=== PATIENT | female | born 1940 | race Caucasian/White ===

== ENCOUNTER 2017-10-27 16:50 | Emergency (ER) | payer MEDICARE, OTHER ==
[~2017-10-27] VITALS: Ht 167.6 cm; Wt 59.0 kg
--- OUTSIDE RECORDS SUMMARY | ~2017-10-27 | XMS | Clinical Summary ---
Demographics + + + | Address | [address] | | | [place] [address] | + + + | Home Phone | | + + + | Preferred Language | Unknown | + + + | Marital Status | | + + + | Amish Affiliation | 1041 | + + + | Race | Unknown | + + + | Ethnic Group | Unknown | + + + Author + + + | Author | [facility] | | | and [place] | + + + | Organization | [facility] | | | and [place] | + + + | Address | Unknown | + + + | Phone | Unavailable | + + + Support + + + + + | Name | Relationship | Address | Phone | + + + + + | Yuri Martinez | ECON | [address] | | | | [address] | | | | | [address] | | + + + + + Care Team Providers + +------+ + | Care Software Performance Engineer Name | Role | Phone | + +------+ + | Mike Saucedo MD | PP | | + +------+ + Allergies No Known Allergies Current Medications + + + +---------+------+------+-------+ | Prescription | Sig. | Disp. | Refills | Star | End | Statu | | | | | | t | Date | s | | | | | | Date | | | + + + +---------+------+------+-------+ | Calcium | Take 1 tablet by | | | | | Activ | | Carb-Cholecalciferol | mouth Daily. | | | | | e | | (CALCIUM 1000 + D | | | | | | | | PO) | | | | | | | + + + +---------+------+------+-------+ | Misc. Devices | Dx: 494.0 INGEL: 99 | 1 each | 1 | 11/1 | | Activ | | (ACAPELLA) MISC | months Use as | | | 4/20 | | e | | | directed twice | | | 14 | | | | | daily. | | | | | | + + + +---------+------+------+-------+ | SPIRIVA HANDIHALER | INHALE CONTENT OF | 30 | 5 | 11/3 | | Activ | | 18 MCG inhalation | ONE CAPSULE BY MOUTH | capsule | | 0/20 | | e | | capsule | ONCE DAILY | | | 15 | | | + + + +---------+------+------+-------+ | domperidone 10 mg | Take 10 mg by mouth | | | | | Activ | | capsule | 4 times daily | | | | | e | | | (before meals and | | | | | | | | nightly). | | | | | | + + + +---------+------+------+-------+ | metroNIDAZOLE | Apply 0.75 % | | | | | Activ | | (METROCREAM) 0.75 % | topically Twice | | | | | e | | cream | daily as needed. | | | | | | + + + +---------+------+------+-------+ | omeprazole | Take 20 mg by mouth | | | | | Activ | | (PRILOSEC) 20 mg | every morning | | | | | e | | capsule | (before breakfast). | | | | | | + + + +---------+------+------+-------+ Active Problems + + + | Problem | Noted Date | + + + | Rheumatic aortic valve insufficiency | 10/03/2015 | + + + | Basal cell carcinoma of cheek | 02/06/2015 | + + + + + | Overview: Last Assessment & Plan: | | [facility]. | + + + + + | History of breast cancer | 06/14/2014 | + + + | Bronchiectasis (HCC) | 06/14/2014 | + + + | Pulmonary nodules | 06/14/2014 | + + + + + | Overview: 2.5 and 5.8 mm on the right on CT 04/2014 | | Stable 10/2014 with 2 new 2mm nodules | | Needs follow up 10/2015 | + + + + + | Chronic cough | 05/06/2014 | + + + | Obstructive chronic bronchitis (HCC) | 05/06/2014 | + + + | GERD (gastroesophageal reflux disease) | 05/06/2014 | + + + | Gastroparesis | 05/22/2012 | + + + | Rheumatic heart disease | | + + + + + | Overview: With murmur | + + + +---+ | Rosacea | | + +---+ | Chronic rhinitis | | + +---+ | Carotid artery disease (HCC) | | + +---+ + + | Overview: carotid US 2009 50-69% mid L ICA stenosis | + + + +---+ | Osteopenia | | + +---+ Immunizations + + + + | Name | Dates Previously Given | Next Due | + + + + | INFLUENZA PF 18 Y OR | 05/20/2015, 04/06/2014 | | | >,TRIVALENT | | | | RECOMBINANT | | | + + + + | PNEUMOCOCCAL | 03/11/2015 | | | CONJUGATE 13-VALENT | | | | (PCV13) | | | + + + + | PNEUMOCOCCAL | 07/22/2010, 07/22/1992 | | | POLYSACCHARIDE | | | | 23-VALENT (PPSV23) | | | + + + + | TETANUS TOXOID | 07/22/1995 | | | ABSORBED, | | | | (ADOL/ADULT) | | | + + + + | ZOSTER, 1 DOSE | 07/22/2010 | | | (ADULT) | | | + + + + Family History + + +------+ + | Medical History | Relation | Name | Comments | + + +------+ + | Dementia | Brother | | | + + +------+ + | Arthritis | Brother | | back issues | + + +------+ + | Coronary artery | Father | | | | disease | | | | + + +------+ + | Diabetes, NIDDM | Father | | | + + +------+ + | Heart attack | Father | | | + + +------+ + | Heart disease | Father | | | + + +------+ + | Heart failure | Mother | | | + + +------+ + | Stroke | Mother | | after sx for a hip fracture | + + +------+ + | Anxiety disorder | Sister | | | + + +------+ + | Bipolar disorder | Sister | | | + + +------+ + | Colon cancer | Sister | | | + + +------+ + | Ovarian cancer | Sister | | | + + +------+ + | Other (see comment) | Sister | | pulmonary fibrosis | + + +------+ + + +------+ + + | Relation | Name | Status | Comments | + +------+ + + | Brother | | Alive | | + +------+ + + | Brother | | Alive | | + +------+ + + | Child | | Alive | | + +------+ + + | Child | | Alive | | + +------+ + + | Child | | Alive | | + +------+ + + | Child | | Alive | | + +------+ + + | Father | | | ME | | | | (Age | | | | | 91) | | + +------+ + + | Maternal Grandfather | | | | + +------+ + + | Maternal Grandmother | | | | + +------+ + + | Mother | | | CHF | | | | (Age | | | | | 92) | | + +------+ + + | Paternal Grandfather | | | | + +------+ + + | Paternal Grandmother | | | | + +------+ + + | Sister | | | | + +------+ + + | Sister | | | COLON CANCER | | | | (Age | | | | | 70) | | + +------+ + + | Sister | | | | | | | (Age | | | | | 79) | | + +------+ + + Social History + + + +--------+ + | Tobacco Use | Types | Packs/Day | Years | Date | | | | | Used | | + + + +--------+ + | Former Smoker | Cigarettes | 0.7 | 40 | 05/06/1969 - | | | | | | 05/06/2009 | + + + +--------+ + + +---+---+---+ | Smokeless Tobacco: | | | | | Never Used | | | | + +---+---+---+ + + | Tobacco Cessation: Counseling Given: No | + + + + +---------+ + | Alcohol Use | Drinks/We | oz/Week | Comments | | | ek | | | + + +---------+ + | No | 0 | 0.0 | | | | Standard | | | | | drinks or | | | | | | | | | | equivalen | | | | | t | | | + + +---------+ + + + + | Sex Assigned at | Date Recorded | | | | + + + | Not on file | | + + + Last Filed Vital Signs + + + + | Vital Sign | Reading | Time Taken | + + + + | Blood Pressure | 150/68 | 03/22/2017 1033 PDT | + + + + | Pulse | 79 | 03/22/2017 1033 PDT | + + + + | Temperature | 36.8 C (98.3 F) | 05/06/2014 1100 PDT | + + + + | Respiratory Rate | 16 | 09/05/2016 1312 PST | + + + + | Oxygen Saturation | 98% | 01/03/2016 1008 PDT | + + + + | Inhaled Oxygen | - | - | | Concentration | | | + + + + | Weight | 61.7 kg (136 lb) | 03/22/20173 PDT | + + + + | Height | 165.1 cm (5' 5") | 03/22/20173 PDT | + + + + | Body Mass Index | 22.63 | 03/22/20171032 PDT | + + + + Plan of Treatment + + + + + | Health Maintenance | Due Date | Last Done | Comments | + + + + + | Vaccine: | | 07/22/1995 | | | Dtap/Tdap/Td (1 - | 6 | | | | Tdap) | | | | + + + + + | Vaccine: Influenza | | 05/20/2015, 04/06/2014 | | | (Season Ended) | 8 | | | + + + + + | Vaccine: Zoster | Completed | 07/22/2010 | | + + + + + | Vaccine: | Completed | 03/11/2015, 07/22/2010, | | | Pneumococcal 65+ | | 07/22/1992 | | | Low/Medium Risk | | | | + + + + + Results Not on filefrom Last 3 Months Insurance + +--------+ +--------+ +---------+ | Payer | Benefi | Subscriber | Type | Phone | Address | | | t Plan | ID | | | | | | / | | | | | | | Group | | | | | + +--------+ +--------+ +---------+ | MEDICARE | MEDICA | xxxxxxxxxx | Medica | +- | | | | RE | | re | [id number] | | | | PART A | | | | | | | AND B | | | | | + +--------+ +--------+ +---------+ | MEDICARE SUPPLEMENT | MEDICA | [id number] | Indemn | +- | | | OTHER | RE | | ity | [phone] | | | | SUPPLE | | | | | | | MENT | | | | | | | OTHER | | | | | + +--------+ +--------+ +---------+ + +--------+ +--------+ + + | Guarantor Name | Accoun | Relation to | Date | Phone | Billing Address | | | t Type | Patient | of | | | | | | | | | | + +--------+ +--------+ + + | OSCAR MARTINEZ | Person | Self [birth year] Home: | [address] | | [place] | al/Fam | | 1940 | [phone] [place] [address] | | | zayda | | | [phone] | | + +--------+ +--------+ + +
--- OUTSIDE RECORDS SUMMARY | ~2017-10-27 | XMS | Encounter Summary ---
Demographics + + + | Address | [address] | | | [place] [address] | + + + | Home Phone | | + + + | Preferred Language | Unknown | + + + | Marital Status | | + + + | Faith Affiliation | 1041 | + + + | Race | Unknown | + + + | Ethnic Group | Unknown | + + + Author + + + | Author | [employer] [facility] | + + + | Organization | [facility] | + + + | Address | [...] + + +---------+ + | Alexandra Galarza | ECON | Unknown | | + + +---------+ + Care Team Providers + +------+ + | Care Nursing Officer Name | Role | Phone | + +------+ + | Mike Saucedo MD | PCP | | + +------+ + Reason for Referral Diagnostic Lab (Routine) + +--------+ + + + + | Status | Reason | Specialty | Diagnoses / | Referred By | Referred To | | | | | Procedures | Contact | Contact | + +--------+ + + + + | Authorized | | Pulmonology | Diagnoses | Sukhjinder, | Kr | | | | | | Windy | Pulmonary | | | | | Bronchiectas | MD Elinor | Function Lab | | | | | is without | [address] | [address] | | | | | complication | [address] | [address] | | | | | (HCC) Mild | [place], | [place], [place] | | | | | airflow | [place] [address] | [address] Phone: | | | | | obstruction | Phone: | [phone] | | | | | on pulmonary | [phone] | Fax: | | | | | function | Fax: | [phone] | | | | | test | [phone] | | | | | | Procedures | | | | | | | Complete PFT | | | | | | | - Pre & | | | | | | | Post | | | | | | | Spirometry, | | | | | | | PLETH & DLCO | | | + +--------+ + + + + Reason for Visit + + + | Reason | Comments | + + + | Follow-up | Bronchiectasis without complication (HCC) | + + + Encounter Details +--------+---------+ + + + | Date | Type | Department | Care Team | Description | +--------+---------+ + + + | 09/26/ | Office | [facility] | Sukhjinder, | Bronchiectasis | | 2018 | Visit | Pulmonology [address] | Windy Aldrich, | without complication | | | | [address] | [address] | ([facility]) (Primary Dx); | | | | [place], [place] | [place] [address] | Mild airflow | | | | [address] | [phone] | obstruction on | | | | [phone] | | pulmonary function | | | | | | test; ILD | | | | | | (interstitial lung | | | | | | disease) ([facility]); | | | | | | Atypical | | | | | | mycobacterial | | | | | | infection of lung | | | | | | ([facility]); Pulmonary | | | | | | nodule; Personal | | | | | | history of tobacco | | | | | | use, presenting | | | | | | hazards to health | +--------+---------+ + + + Social History + +-------+ [...] + + + as of this encounter Last Filed Vital Signs + + + + | Vital Sign | Reading | Time Taken | + + + + | Blood Pressure | 133/60 | 09/26/2017 9:27 AM PST | + + + + | Pulse | 63 | 09/26/2017 9:27 AM PST | + + + + | Temperature | 36.6 C (97.8 F) | 09/26/2017 9:27 AM PST | + + + + | Respiratory Rate | - | - | + + + + | Oxygen Saturation | 98% | 09/26/2017 9:27 AM PST | + + + + | Inhaled Oxygen | - | - | | Concentration | | | + + + + | Weight | 63.6 kg (140 lb 3.2 | 09/26/2017 9:27 AM PST | | | oz) | | + + + + | Height | 165.1 cm (5' 5") | 09/26/2017 9:27 AM PST | + + + + | Body Mass Index | 23.33 | 09/26/2017 9:27 AM PST | + + + + in this encounter Progress Notes Windy Slaughter MD - 09/26/2017 9:30 AM PSTFormatting of this note may be dif ferent from the original. Subjective: Patient ID: Shireen Posey is a 77 y.o. female with known valvular heart disease due to childhood rheumatic fever, COPD, bronchiectasis, stable pulmonary nodule, gastroparesis and history of hiatal hernia, and underlying mild ILD, here to establish care. HPI Ms Posey is a 76 yr old woman with a history of gastroparesis and hiatal hernia, post N issin's fundoplication, with COPD, bronchiectasis and mild interstitial changes on imaging. She has evidence of mild obstruction, and mild reduction in her DLCO based on PFT done in . She has been maintained on Spiriva daily, and is not on any short acting inhalers. She i s also not on oxygen supplementation. Clinically, she reports that she is not really short of breath with her activities at home. She remains active and works around the house throughout the day. She does have a chronic c ough, productive of white sputum. She does not have hemoptysis. She sleeps at an incline at night because laying flat precipitates coughing, but she claims she sleeps through the night without her cough bothering her. She has known valvular heart disease and she used to be un marco the care of Dr Talbert. She will be seeing a new provider in [place] soon. She denies jonathan st pains, but does have chronic pedal edema which she attributes to her back issues. She den ies dysphagia and overt aspiration of gastric contents. She admits that this happened in the past, but she is currently asymptomatic. She is also on dromperidone and on a PPI for this. She has chronic post nasal gtt and sinus drainage. Interval History Ms Posey comes in today for a follow up visit. She has done relatively well without any exacerbation, or acute URI this winter. She has been mostly sedentary, but she intends to g o back to the gym and also garden now that it is getting warmer. She continues to have a cou gh that is minimally productive of white to yellow sputum. She denies hemoptysis. She has go od energy, and seems to not be short of breath with her activities at home. She has not had fevers or night sweats. She denies chest pains, orthopnea or PNDs. She does sleep on a recli ner/HOB elevated. She has pedal edema which has not been worsening. She continues to complai n of abdominal discomfort and reflux s/s -she was diagnosed with gastroparesis and is on Gonzalo mperidone. She had diarrhea after a certain meal, but she is recovering from this. She has remained on Incruse Ellipta, and albuterol nebulization BID. She has an acapella at home to use for mucus clearance/pulm hygiene. SOCIAL HISTORY She is a past smoker, stopped 10 years ago, smoked about 1/2 to a pack a day for the past 5 0 years. 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 She denies occupational exposures. She has no animals at home curre ntly. The following portions of the patient's history were reviewed and updated as appropriate: a llergies, current medications, past family history, past medical history, past social histor y, past surgical history and problem list. Review of Systems Constitutional: Negative for activity change, appetite change, chills, diaphoresis, fatigue , fever and unexpected weight change. HENT: Positive for congestion and postnasal drip. Negative for nosebleeds, rhinorrhea and s ore throat. Eyes: Negative for visual disturbance. Respiratory: Positive for cough. Negative for apnea, choking, chest tightness, shortness of breath, wheezing and stridor. Cardiovascular: Positive for leg swelling. Negative for chest pain and palpitations. Gastrointestinal: Negative for constipation, diarrhea and nausea. Genitourinary: Negative for dysuria and frequency. Musculoskeletal: Positive for arthralgias, back pain and joint swelling. Negative for myalg ias and neck pain. Skin: Negative for rash. Neurological: Negative for dizziness, weakness and light-headedness. Hematological: Negative for adenopathy. Psychiatric/Behavioral: Negative for sleep disturbance. Active Ambulatory Problems Diagnosis Date Noted VHD (valvular heart disease) 02/03/2015 Bilateral carotid artery stenosis 02/03/2015 PAD (peripheral artery disease) 02/03/2015 Carcinoma in situ of right breast 02/06/2015 Basal cell carcinoma of cheek 02/06/2015 Gastroparesis 02/06/2015 Bronchiectasis (HCC) 02/06/2015 Chronic obstructive pulmonary disease (HCC) 11/19/2016 ILD (interstitial lung disease) (HCC) 11/19/2016 Pulmonary nodule 11/19/2016 Chronic allergic rhinitis 11/19/2016 Personal history of tobacco use, presenting hazards to health 11/19/2016 Mild airflow obstruction on pulmonary function test 02/19/2017 Centrilobular emphysema (HCC) 02/19/2017 Atypical mycobacterial infection of lung (HCC) 05/31/2017 Resolved Ambulatory Problems Diagnosis Date Noted No Resolved Ambulatory Problems Past Medical History: Diagnosis Date Bilateral claudication of lower limb (HCC) Bronchiectasis (HCC) CAD (coronary artery disease) Chronic sinusitis COPD (chronic obstructive pulmonary disease) (HCC) Gastroparesis History of breast cancer Osteopenia Pityriasis rosea Pulmonary fibrosis (HCC) Pulmonary nodule Rheumatic heart disease Past Surgical History Procedure Laterality Date APPENDECTOMY BASAL CELL CARCINOMA EXCISION Right cheek BREAST LUMPECTOMY Right lumpectomy-right breast COLONOSCOPY HERNIA REPAIR KNEE ARTHROSCOPY Right TONSILLECTOMY TONSILLECTOMY AND ADENOIDECTOMY UNLISTED PROCEDURE ARTHROSCOPY Objective: Physical Exam BP 133/60 (BP Location: Left upper arm, Patient Position: Sitting) | Pulse 63 | Temp 97.8 F (36.6 C) (Oral) | Ht 1.651 m (5' 5") | Wt 63.6 kg (140 lb 3.2 oz) | SpO2 98% | BM I 23.33 kg/m Vital signs reviewed. Oxygen saturation noted at 98 % on ambient air GENERAL: pleasant, cooperative, oriented, not in distress HEENT: pink conjunctiva, anicteric sclerae, moist oral mucosae and without any lesions, nor mal appearing nasal mucosae; no JVD; MALAMPATTI 4; no thyromegaly; no cervicolymphadenopathi es CVS: PMI non displaced, NRRR, S1 and S2, grade 3/6 BRADY along the L parasternal border CHEST: Examination of the chest was unremarkable. There were no bony deformities, no asymme try, and no other abnormalities. LUNGS: Normal effort, Equal in expansion, resonant to percussion, amphoric breath sounds on both bases, no adventitious sounds today ABDOMEN: Flat abdomen, NABS, non-tender on palpation, no masses palpated EXTREMITIES: good distal pulses, no cyanosis, no clubbing, no nail abnormalities, +1 edema on ankles noted NEURO: awake and oriented, gait normal, no focal neurologic deficits LABORATORY AND IMAGING Pulmonary Function Test: 04/26/14 10/25/15 FEV1 1.81 (85%) 1.79 (85%) FVC 2.69 (94%) 2.61 (92%) FEV1/FVC 67 69 TLC 12.11 (236%) 7.74 (151%) RV/TLC 77 66 DLCO 16.6 (73%) 15.2 (67%) CT imaging done on 10/24/16 independently reviewed. Official results are: IMPRESSION - Stable 5.8 mm nodule and adjacent pleural parenchymal irregularities in the left apex. Stable groundglass area of nodularity in the left apex. No new lung nodules. Bronchiectasis and fibrosis in both lungs. Consider continued follow-up. Echo done on 02/14/16 reviewed independently. Official result below: Impression 1. See Dictation. Sinus. 2. Degenerative Valvular Heart Disease. Calcified nodule on left coronary cusp, moderate AI , no . Mitral valve grossly NML, mild MAC, mild MR. Tricuspid and Pulmonic valves romaine sly NML, mild TR, trace PI. 3. LV dimensions NML (LVEDd 47mm, LVESd 30mm), systolic function NML, Grade 1 diastolic abnormality, [place] visually estimates LVEF 65-70%. Moderate LAE. RA/RV NML. 4. No Pericardial effusion. 5. IVC NML, est systolic PAP 27-32mmHg. CT of the chest done on 11/27/16 reviewed independently. IMPRESSION - Unchanged appearance of multiple pulmonary nodules, the largest is at the left apex and measures 6 mm. No new pulmonary nodules. Centrilobular emphysematous changes. Bilateral bronchiectasis and inferior basilar scarring/fibrosis, most prominent at the right lung base. AFB February 2017 is no growth. Assessment and Plan: 1. Bronchiectasis without complication (HCC) Ms Posey is a 77 yr old woman who has bibasilar bronchiectasis, likely from her previou s episodes of aspiration as a consequence of hiatal hernia and gastric dysmotility. Surveill ance sputum culture, and AFB smear and culture showed evidence of pseudomonas aeruginosa (lucero holbrook a colonizer), and atypical mycobacteria (only once in our surveillance CS). Repeat AFB CS in February did not show evidence of DOMI. This is reassuring. She has done well with her respiratory regimen, and has been using albuterol nebulization B ID, and Incruse Ellipta daily. I have encouraged her to push through with her plans of exerc ising more this season. This is one of the best ways of getting mucus clearance or pulmonary hygiene done. I have requested for a complete PFT this year as part of surveillance of her disease. - Complete PFT - Pre & Post Spirometry, PLETH & DLCO; Future 2. Mild airflow obstruction on pulmonary function test She manifests with mild airflow obstruction most likely secondary to her underlying bronchi ectasis and centrilobular emphysema. She will continue with Incruse Ellipta once a day. PFT requested as noted above. - Complete PFT - Pre & Post Spirometry, PLETH & DLCO; Future 3. ILD (interstitial lung disease) (HCC) She has subtle interstitial changes on the bases of her lungs, which I think is from past a spiration episodes. She thought that she had IPF, which her sister had, but based on her his tory, this is less likely. We will continue to follow her PFT, and also imaging if needed. She is due for a CT of the chest this May for a pulmonary nodule, and we will note any nguyen es in her interstitium then. 4. Atypical mycobacterial infection of lung (HCC) No growth on her last sputum AFB CS in February 2017. This is reassuring. We will continue be ing vigilant about this. 5. Pulmonary nodule She has a 5 mm ALEXANDRA nodule noted on a CT of the chest last year in October 2015. These remain stable based on repeat CT scan done this spring. These nodules are most likely inflammatory in nature rather than malignant. Repeat CT requested for November 2017 as part of continued surve illance. 6. Personal history of tobacco use, presenting hazards to health She has stopped smoking about 10 years ago. Continue to be vigilant about signs of pulmonar y malignancy. Thank you for allowing us to participate in this patient's care. A return visit has been re quested/scheduled in 5 months for routine follow up. The patient was instructed to call our clinic for any questions, and for any concerns regarding worsening dyspnea, cough or change in sputum production. We will see the patient sooner than the recommended follow up date, if with any worsening of symptoms. Windy Slaughter MD Pulmonary and Critical Care Medicine [facility] [address] [place] [address] in this encounter Plan of Treatment +--------+ + + + + | Date | Type | Specialty | Care Team | Description | +--------+ + + + + | 11/07/ | Appointment | Pulmonology | Sukhjinder, | | | 2017 | | | Windy Aldrich, | | | | | | MD [address] | | | | | | [place] [address] | | | | | | [phone] | | | | | | | | +--------+ + + + + | 01/29/ | Office | Cardiology | Nannette Morrison, | | | 2017 | Visit | | [address] | | | | | | [address], | | | | | | [place] [address] | | | | | | [phone] | | | | | | | | +--------+ + + + + | 02/27/ | Office | Pulmonology | Sukhjinder, | | | 2017 | Visit | | Windy Aldrich, | | | | | | [address] | | | | | | [place], [place] [address] | | | | | | [phone] | | | | | | | | +--------+ + + + + + +--------+ + + | Name | Priori | Associated Diagnoses | Order Schedule | | | ty | | | + +--------+ + + | Complete PFT - Pre & Post | Routin | Bronchiectasis | Expected: | | Spirometry, PLETH & DLCO | e | without complication | 09/26/2017, Expires: | | | | ([facility]) Mild airflow | 09/26/2018 | | | | obstruction on | | | | | pulmonary function | | | | | test | | + +--------+ + + as of this encounter Visit Diagnoses + + | Diagnosis | + + | Bronchiectasis without complication (HCC) - Primary | + + | Bronchiectasis without acute exacerbation | + + | Mild airflow obstruction on pulmonary function test | + + | ILD (interstitial lung disease) (HCC) | + + | Postinflammatory pulmonary fibrosis | + + | Atypical mycobacterial infection of lung (HCC) | + + | Pulmonary diseases due to other mycobacteria | + + | Pulmonary nodule | + + | Solitary pulmonary nodule | + + | Personal history of tobacco use, presenting hazards to health | + +
--- OUTSIDE RECORDS SUMMARY | ~2017-10-27 | XMS | Clinical Summary ---
Demographics + + + | Address | [address] | | | [place] [address] | + + + | Home Phone | | + + + | Preferred Language | Unknown | + + + | Marital Status | | + + + | Christianity Affiliation | 1041 | + + + | Race | Unknown | + + + | Ethnic Group | Unknown | + + + Author + + + | Author | [facility] | | | and [place] | + + + | Organization | [facility] | | | and [place] | [...] [address] | | | | | [address] | | + + + + + Care Team Providers + +------+ + | Care Facilities Maintenance Manager Name | Role | Phone | + [...] +---------+------+------+-------+ | Misc. Devices | Dx: 494.0 NIGEL: [...] Plan: | | Basal Cell CA[facility]. | + + + + + [...] + + | Father | | | PA | | | | (Age | | [...] Self | [birth year] | Home: | [address] | | [place]EL | al/Fam | | 1940 | [phone] | [place] [address] | | | zayda | | | [address] | | + +--------+ +--------+ + +
--- OUTSIDE RECORDS SUMMARY | ~2017-10-27 | XMS | Clinical Summary ---
Demographics + + + | Address | [address] | | | [place] [address] | + + + | Home Phone | | + + + | Preferred Language | Unknown | + + + | Marital Status | | + + + | Yarsanism Affiliation | CAT | + + + | Race | White | + + + | Ethnic Group | Not or | + + + Author + + + | Author | [facility] | + + + | Organization | [facility] | + + + | Address | Unknown | + + + | Phone | Unavailable | + + + Support + + + + + | Name | Relationship | Address | Phone | + + + + + | Shireen Posey | ECON | [address] | | | | [place], [place] | | | | | [address] | | + + + + + Care Team Providers + +------+ + | Care Rebar Bender Name | Role | Phone | + +------+ + | Mike Saucedo MD | PP | | + +------+ + Source Comments BLAIRE is fully live on both [facility] Ambulatory and [facility] InPatient.[facility] [employer] [facility] Allergies No Known Allergies Current Medications + + +-------+---------+------+------+-------+ | Prescription | Sig. | Disp. | Refills | Star | End | Statu | | | | | | t | Date | s | | | | | | Date | | | + + +-------+---------+------+------+-------+ | ASPIRIN ORAL | Take by mouth once | | | | | Activ | | | daily. | | | | | e | + + +-------+---------+------+------+-------+ Active Problems + + + | Problem [...] Pressure | 161/75 | 11/21/2011 12:08 PM PDT | + + + + | Pulse | 59 | 11/21/2011 12:08 PM PDT | + + + + | Temperature | 36.6 C (97.8 F) | 11/21/2011 12:08 PM PDT | + + + + | Respiratory Rate | 16 | 11/21/2011 12:08 PM PDT | + + + + | Oxygen Saturation | 95% | 10/28/2011 11:00 AM PDT | + + + + | Inhaled Oxygen | - | - | | Concentration | | | + + + + | Weight | 63 kg (139 lb) | 11/21/2011 12:08 PM PDT | + + + + | Height | 165.1 cm (5' 5") | 11/21/2011 12:08 PM PDT | + + + + | Body Mass Index | 23.13 | 11/21/2011 12:08 PM PDT | + + + + Plan of Treatment + + + + + | Health Maintenance | Due Date | Last Done | Comments | + + + + + | INFLUENZA VACCINE | | | | | (FLU SHOT) | 8 | | | + + + + + Implants + +------+------+ +--------+--------+--------+ | Implanted | Type | Area | Manufacture | Device | Expira | Model | | | | | r | | tion | / | | | | | | Identi | Date | Serial | | | | | | fier | | / Lot | + +------+------+ +--------+--------+--------+ | Atlantic Carl Ptfe 2.5cm X | | | CR BARD | | 07/21/ | [id number] | | 15cm - [id number]: Qty: | | | PERIPHERAL | | 2016 | / | | 1 on 10/26/2011 | | | VASCULAR | | | /[id number] | | | | | | | | 143 | + +------+------+ +--------+--------+--------+ Results Not on filefrom Last 3 Months
--- OUTSIDE RECORDS SUMMARY | ~2017-10-27 | XMS | Encounter Summary ---
Demographics + + + | Address | [address] | | | [place] [address] | + + + | Home Phone | | + + + | Preferred Language | Unknown | + + + | Marital Status | | + + + | Quaker Affiliation | 1041 | + + + | Race | Unknown | + + + | Ethnic Group | Unknown | + + + Author + + + | Author | [employer] [facility] [employer] | + + + | Organization | [facility] | + + + | Address | [...] Team Providers + +------+ + | Care Data Entry Technician Name | Role | Phone | + [...] | | | | | complication | [address] | | | | | (HCC) Mild | [place], | [place], [place] | | | | | airflow | [place] [address] | [address] Phone: | | | | | obstruction | Phone: | [phone] | | | | | on pulmonary | [phone] | Fax: | | | | | function | Fax: | [phone] | | | | | test | [phone] | | | | | | Procedures [...] + + | 09/26/ | Office | [facility] | Sukhjinder, | Bronchiectasis | | 2018 | Visit | Pulmonology [address] | Windy Aldrich, | without complication | | | | [address] | [address] | ([facility]) (Primary Dx); | | | | [place], [place] | [place] [address] | Mild airflow | | | | [address] | [phone] | obstruction on | | | | [phone] | | pulmonary function | | | | | | test; ILD | | | | | | (interstitial lung | | | | | | disease) ([facility]); | | | | | | Atypical | | | | | | mycobacterial | | | | | | infection of lung | | | | | | ([facility]); Pulmonary | | | | | [...] will be seeing a new provider in [place] soon. She denies jonathan st pains, but [...] 5 0 years. 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 Moderate LAE. RA/RV [...] Slaughter MD Pulmonary and Critical Care Medicine [facility] [address] [place] [address] in this encounter Plan of Treatment +--------+ + + + + | Date | Type | Specialty | Care Team | Description | +--------+ + + + + | 11/07/ | Appointment | Pulmonology | Sukhjinder, | | | 2017 | | | Windy Aldrich, | | | | | | MD [address] | | | | | | [place] [address] | | | | | | [phone] | | | | | | | | +--------+ + + + + | 01/29/ | Office | Cardiology | Nannette Morrison, | | | 2017 | Visit | | [address] | | | | | | [address], | | | | | | [place] [address] | | | | | | [phone] | | | | | | | | +--------+ + + + + | 02/27/ | Office | Pulmonology | Sukhjinder, | | | 2017 | Visit | | Windy Aldrich, | | | | | | [address] | | | | | | [place], [place] [address] | | | | | | [phone] | | | | | | | [...] Expires: | | | | ([facility]) Mild airflow | 09/26/2018 | | [...]
--- OUTSIDE RECORDS SUMMARY | ~2017-10-27 | XMS | Clinical Summary ---
Demographics + + + | Address | [address] | | | [place] [address] | + + + | Home Phone | | + + + | Preferred Language | Unknown | + + + | Marital Status | | + + + | Scientology Affiliation | 1041 | + + + | Race | Unknown | + + + | Ethnic Group | Unknown | + + + Author + + + | Author | [employer] | + + + | Organization | [facility] [employer] | + + + | Address | [...] + +---------+ + | Alexandra Galarza | [place] | Unknown | | + + +---------+ + Care Team Providers + +------+ + | Care Child And Family Counselor Name | Role | Phone | + +------+ + | Mike Saucedo MD | PP | | + +------+ + Allergies No Active Allergies Current Medications + + + +---------+------+------+-------+ | Prescription | Sig. | Disp. | Refills | Star | End | Statu | | | | | | t | Date | s | | | | | | Date | | | + + + +---------+------+------+-------+ | Multiple | Take 1 tablet by | | | | | Activ | | Vitamins-Minerals | mouth daily. | | | | | e | | (MULTIVITAMIN WITH | | | | | | | | MINERALS) tablet | | | | | | | + + + +---------+------+------+-------+ | aspirin 81 MG EC | Take 81 mg by mouth | | | | | Activ | | tablet | daily with | | | | | e | | | breakfast. | | | | | | + + + +---------+------+------+-------+ | domperidone | Take 10 mg by mouth | | | | | Activ | | (MOTILIUM) 10 mg | 4 (four) times daily | | | | | e | | tablet | before meals and | | | | | | | | nightly. | | | | | | + + + +---------+------+------+-------+ | omeprazole | Take 20 mg by mouth | | | | | Activ | | (PRILOSEC) 20 MG | 2 (two) times daily. | | | | | e | | capsule | | | | | | | + + + +---------+------+------+-------+ | omeprazole | Take 20 mg by mouth. | | | | | Activ | | (PRILOSEC) 20 MG | | | | | | e | | capsule | | | | | | | + + + +---------+------+------+-------+ | Calcium | Take 1 tablet by | | | | | Activ | | Carb-Cholecalciferol | mouth. | | | | | e | | 1000-800 MG-UNIT | | | | | | | | TABS | | | | | | | + + + +---------+------+------+-------+ | albuterol | Take 3 mLs by | 336 mL | 5 | 08/0 | 08/0 | Activ | | (PROVENTIL) (2.5 | nebulization every 6 | | | 1/20 | 1/20 | e | | MG/3ML) 0.083% | (six) hours as | | | 17 | 18 | | | nebulizer | needed for Wheezing | | | | | | | solutionIndications: | (nebulize twice a | | | | | | | Bronchiectasis | day, and as needed). | | | | | | | without complication | | | | | | | | ([facility]), Mild airflow | | | | | | | | obstruction on | | | | | | | | pulmonary function | | | | | | | | test | | | | | | | + + + +---------+------+------+-------+ | levofloxacin | Take 1 tablet by | 14 | 0 | 05/22 | | Activ | | (LEVAQUIN) 500 MG | mouth daily. | tablet | | 0 | | e | | tabletIndications: | | | | 17 | | | | Bronchiectasis | | | | | | | | without complication | | | | | | | | ([facility]) | | | | | | | + + + +---------+------+------+-------+ | umeclidinium | Inhale 1 puff into | 1 | 5 | 02/1 | | Activ | | bromide (INCRUSE | the lungs daily. | Inhaler | | 01/08 | | e | | ELLIPTA) 62.5 | | | | 18 | | | | MCG/INH | | | | | | | | inhalerIndications: | | | | | | | | Bronchiectasis | | | | | | | | without complication | | | | | | | | ([facility]), Chronic | | | | | | | | obstructive | | | | | | | | pulmonary disease, | | | | | | | | unspecified COPD | | | | | | | | type (HCC) | | | | | | | + + + +---------+------+------+-------+ Active Problems + + + | Problem | Noted Date | + + + | Atypical mycobacterial infection of lung (HCC) | 05/31/2017 | + + + | Mild airflow obstruction on pulmonary function test | 02/19/2017 | + + + | Centrilobular emphysema (HCC) | 02/19/2017 | + + + | [...] & Plan: Bronchiectasis, followed by | | Transportation Services RepresentativeDr Maria. | + + + + + | VHD (valvular heart disease) | 02/03/2015 | + + + [...] she and Yuri sold their home in [place], | | she is busy doing yardwork and packing, most likely will be | | spending the winter in the [place] area. Tolerating | | medications. No changes in [...] | 17/0.8, glu: 117 | + + + + + | [...] + + | Last Assessment & Plan: ernie Bellamy symptomatic, | | bilaterally. TORSTEN, 02/28/2015: mild disease, lazara. | + + Encounters +--------+ + + + + | Date | Type | Specialty | Care Team | Description | +--------+ + + + + | 10/21/ | Telephone | | Candelaria Pickens RN | | | 2018 | | | | | +--------+ + + + + | 09/26/ | Office | | Sukhjinder, | Bronchiectasis | | 2018 | Visit | | Windy Aldrich, | without complication | | | | | MD | ([facility]) (Primary Dx); | | | | | | Mild airflow | | | | | | obstruction on | | | | | | pulmonary function | | | | | | test; ILD | | | | | | (interstitial lung | | | | | | disease) ([facility]); | | | | | | Atypical | | | | | | mycobacterial | | | | | | infection of lung | | | | | | ([facility]); Pulmonary | | | | | | nodule; Personal | | | | | | history of tobacco | | | | | | use, presenting | | | | | | hazards to health | +--------+ + + + + | 09/06/ | Refill | | Candelaria Pickens RN | Bronchiectasis | | 2018 | | | | without complication | | | | | | ([facility]); Chronic | | | | | | obstructive | | | | | | pulmonary disease, | | | | | | unspecified COPD | | | | | | type ([facility]) | +--------+ + + + + from Last 3 Months Family History + + +------+ + | [...] + + | Father | | | ND | | | | (Age | | | | | 90) | | + +------+ + + | Mother | | | CHF,heart disease,HTN,CVA | | | | (Age | | | | | 90) | | + +------+ + + Social [...] + | Respiratory Rate | 16 | 03/14/2016 10:09 AM PDT | + + + + [...] AM PST | + + + + Plan of Treatment +--------+ + + + + | Date | Type | Specialty | Care Team | Description | +--------+ + + + + | 11/07/ | Appointment | | Sukhjinder, | | | 2017 | | | Windy Aldrich, | | | | | | MD [address] | | | | | | [place] [address] | | | | | | [phone] | | | | | | | | +--------+ + + + + | 01/29/ | Office | | Nannette Morrison, | | | 2017 | Visit | | MD [address] | | | | | | [address], | | | | | | [place] [address] | | | | | | [phone] | | | | | | | | +--------+ + + + + | 02/27/ | Office | | Sukhjinder, | | | 2017 | Visit | | Windy Aldrich, | | | | | | MD [address] | | | | | | [place] [address] | | | | | | [phone] | | | | | | | | +--------+ + + + + + + + + + | Health Maintenance | Due Date | Last Done | Comments | + + + + + | Vaccine: | | | | | Dtap/Tdap/Td (1 - | 8 | | | | Tdap) | | | | + + + + + | DEXA SCAN SCREENING | | | | | | 4 | | | + + + + + | Vaccine: Influenza | | 05/20/2015, 04/06/2014, | | | (Season Ended) | 8 | 04/06/2014 | | + + + + + | Vaccine: Zoster | Completed | 07/22/2010 | | + + + + + | Vaccine: | Completed | 03/11/2015, 07/22/2010, | | | Pneumococcal 65+ | | 07/22/1992 | | | Low/Medium Risk | | | | + + + + + Results Not on filefrom Last 3 Months Insurance + +--------+ +------+-------+ + | Payer | Benefi | Subscriber | Type | Phone | Address | | | t Plan | ID | | | | | | / | | | | | | | Group | | | | | + +--------+ +------+-------+ + | MEDICARE | MEDICA | xxxxxxxxxx | | | [address] | | | RE | | | | [place] [address] | | | IP-OP | | | | | + +--------+ +------+-------+ + | COMMERCIAL OTHER | COMMER | xxxxxxxxxx | | | | | | CIAL [...] MARTINEZ I | Person | Self | [birth year] Home: | [address] | | | al/Fam | | 1940 | [phone] | [place] | | | [place] | | | [phone] | [phone] | + +--------+ +--------+ + +
--- OUTSIDE RECORDS SUMMARY | ~2017-10-27 | XMS | Encounter Summary ---
Demographics + + + | Address | [address] | | | [place] [address] | + + + | Home Phone | | + + + | Preferred Language | Unknown | + + + | Marital Status | | + + + | Presybeterian Affiliation | 1041 | + + + | Race | Unknown | + + + | Ethnic Group | Unknown | + + + Author + + + | Author | [employer] | + + + | Organization | [facility] [employer] | + + + | Address | [...] Team Providers + +------+ + | Care Door Maker Name | Role | Phone | + +------+ + | Mike Saucedo MD | PCP | | + +------+ + Encounter Details +--------+ + + + + | Date | Type | Department | Care Team | Description | +--------+ + + + + | 10/21/ | Telephone | [facility] | Candelaria Pickens RN | | | 2017 | | Pulmonology [address] | | | | | | [address] | | | | | | [place], [place] | | | | | | [address] | | | | | | [phone] | | | +--------+ + + + [...] as of this encounter Plan of Treatment +--------+ + + + + | Date | Type | Specialty | Care Team | Description | +--------+ + + + + | 11/07/ | Appointment | Pulmonology | [facility], | | | 2017 | | | Windy Aldrich, | | | | | | MD [address] | | | | | | [place] [address] | | | | | | [phone] | | | | | | | | +--------+ + + + + | 01/29/ | Office | Cardiology | Nannette Morrison, | | | 2017 | Visit | | MD [address] | | | | | | Dr [address], | | | | | | [place] [address] | | | | | | [phone] | | | | | | | | +--------+ + + + + | 02/27/ | Office | Pulmonology | [facility], | | | 2017 | Visit | | Windy Aldrich, | | | | | | MD [address] | | | | | | [place] [address] | | | | | | [phone] | | | | | | | | +--------+ + + + + as of this encounter Visit Diagnoses Not on filein this encounter"
--- OUTSIDE RECORDS SUMMARY | ~2017-10-27 | XMS | Encounter Summary ---
Demographics + + + | Address | [address] | | | [place] [address] | + + + | Home Phone | | + + + | Preferred Language | Unknown | + + + | Marital Status | | + + + | Zoroastrianism Affiliation | 1041 | + + + | Race | Unknown | + + + | Ethnic Group | Unknown | + + + Author + + + | Author | [employer] | + + + | Organization | [facility] [employer] | + + + | Address [...] Providers + +------+ + | Care Manufacturing Plant Manager Name | Role | Phone | [...] Description | +--------+--------+ + + + | 09/06/ | Refill | [facility] | Candelaria Pickens RN | Bronchiectasis | | 2017 | | Pulmonology [address] | | without complication | | | | [address] | | ([facility]); Chronic | | | | [place], [place] | | obstructive | | | | [address] | | pulmonary disease, | | | | [phone] | | unspecified COPD | | | | | | type ([facility]) | +--------+--------+ + + + Social History [...] | | | | | [place] [address] | | | | | | [phone] | | | | | | | | +--------+ + + + + | 01/29/ | Office | Cardiology | JuanfranciaNannette, | | | 2017 | Visit | | MD [address] | | | | | | Dr [address], | | | | | | [place] [address] | | | | | | [phone] | | | | | | | | +--------+ + + + + | 02/27/ | Office | Pulmonology | Sukhjinder, | | | 2017 | Visit | | Windy Aldrich, | | | | | | MD [address] | | | | | | [place] [address] | | | | | | [phone] | | | | | | | | +--------+ + + + + as of this encounter Visit Diagnoses + + | Diagnosis | + + | Bronchiectasis without complication (HCC) | + + | Bronchiectasis without acute exacerbation | + + | Chronic obstructive pulmonary disease, unspecified COPD type (HCC) | + +"
--- OUTSIDE RECORDS SUMMARY | ~2017-10-27 | XMS | Encounter Summary ---
Demographics + + + | Address | [address] | | | [place] [address] | + + + | Home Phone | | + + + | Preferred Language | Unknown | + + + | Marital Status | | + + + | Bahai Affiliation | 1041 | + + + | Race | Unknown | + + + | Ethnic Group | Unknown | + + + Author + + + | Author | [employer] | + + + | Organization | [facility] | + + + | Address | [...] Team Providers + +------+ + | Care Insurance Licensing Supervisor Name | Role | Phone | [...] + + | 09/06/ | Refill | [facility] | Candelaria Pickens RN | Bronchiectasis | | 2017 | | Pulmonology [address] | | without complication | | | | [address] | | ([facility]); Chronic | | | | [place], [place] | | obstructive | | | | [address] | | pulmonary disease, | | | | [phone] | | unspecified COPD | | | | | | type ([facility]) | +--------+--------+ + + + Social [...] | | | | | [place] [address] | | | | | | [phone] | | | | | | | | +--------+ + + + + | 01/29/ | Office | Cardiology | JuanfranciaNannette, | | | 2017 | Visit | | MD [address] | | | | | | Dr [address], | | | | | | [place] [address] | | | | | | [phone] | | | | | | | | +--------+ + + + + | 02/27/ | Office | Pulmonology | Sukhjinder, | | | 2017 | Visit | | Windy Aldrich, | | | | | | MD [address] | | | | | | [place] [address] | | | | | | [phone] | | | | | | | | +--------+ + + + + as of this encounter Visit Diagnoses + + | Diagnosis | + + | Bronchiectasis without complication (HCC) | + + | Bronchiectasis without acute exacerbation | + + | Chronic obstructive pulmonary disease, unspecified COPD type (HCC) | + +"
--- OUTSIDE RECORDS SUMMARY | ~2017-10-27 | XMS | Encounter Summary ---
Demographics + + + | Address | [address] | | | [place] [address] | + + + | Home Phone | | + + + | Preferred Language | Unknown | + + + | Marital Status | | + + + | Adventism Affiliation | 1041 | + + + | Race | Unknown | + + + | Ethnic Group | Unknown | + + + Author + + + | Author | [email or web address] | + + + | Organization | [facility] | + + + | Address | [...] Providers + +------+ + | Care Telecommunications Line Installer Name | Role | Phone | + +------+ + | Mike Saucedo MD | PCP | | + +------+ + Encounter Details +--------+ + + + + | Date | Type | Department | Care Team | Description | +--------+ + + + + | 10/21/ | Telephone | [facility] | Candelaria Pickens RN | | | 2017 | | Pulmonology [address] | | | | | | [address] | | | | | | [place], [place] | | | | | | [address] | | | | | | [phone] | | | +--------+ + + + [...] | 11/07/ | Appointment | Pulmonology | [facility], | | | 2017 | | | Windy Aldrich, | | | | | | MD [address] | | | | | | [place] [address] | | | | | | [phone] | | | | | | | | +--------+ + + + + | 01/29/ | Office | Cardiology | Nannette Morrison, | | | 2017 | Visit | | MD [address] | | | | | | Dr [address], | | | | | | [place] [address] | | | | | | [phone] | | | | | | | | +--------+ + + + + | 02/27/ | Office | Pulmonology | [facility], | | | 2017 | Visit | | Windy Aldrich, | | | | | | MD [address] | | | | | | [place] [address] | | | | | | [phone] | | | | | | | | +--------+ + + + + as of this encounter Visit Diagnoses Not on filein this encounter"
--- OUTSIDE RECORDS SUMMARY | ~2017-10-27 | XMS | Clinical Summary ---
Demographics + + + | Address | [address] | | | [place] [address] | + + + | Home Phone | | + + + | Preferred Language | Unknown | + + + | Marital Status | | + + + | Adventism Affiliation | CAT | + + + | Race | White | + + + | Ethnic Group | Not or | + + + Author + + + | Author | [facility] | + + + | Organization | [facility] | + + + | Address | Unknown | + + + | Phone | Unavailable | + + + Support + + + + + | Name | Relationship | Address | Phone | + + + + + | Shireen Posey | ECON | [address] | | | | [place], [place] | | | | | [address] | | + + + + + Care Team Providers + +------+ + | Care Pharmacometrician Name | Role | Phone | + +------+ + | Mike Saucedo MD | PP | | + +------+ + Source Comments BLAIRE is fully live on both [facility] and [facility] InPatient.[facility] Allergies No Known Allergies Current Medications [...] / Lot | + +------+------+ +--------+--------+--------+ | [place] Carl Ptfe 2.5cm X | | | CR BARD | | 07/21/ | [id number] | | 15cm - [id number]: Qty: | | | PERIPHERAL | | 2016 | / | | 1 on 10/26/2011 | | | VASCULAR | | | /[id number] | | | | | | | | 143 | + +------+------+ +--------+--------+--------+ Results Not on filefrom Last 3 Months
--- OUTSIDE RECORDS SUMMARY | ~2017-10-27 | XMS | Clinical Summary ---
Demographics + + + | Address | [address] | | | [place] [address] | + + + | Home Phone | | + + + | Preferred Language | Unknown | + + + | Marital Status | | + + + | Buddhism Affiliation | 1041 | + + + | Race | Unknown | + + + | Ethnic Group | Unknown | + + + Author + + + | Author | [employer] [facility] | + + + | Organization | [facility] | + + + | Address | [...] Team Providers + +------+ + | Care Dissolver Operator Name | Role | Phone | [...] | | | | | ([facility]), Mild airflow | | | | | [...] | | | | | ([facility]) | | | | | | | [...] | | | | | ([facility]), Chronic | | | | | | [...] & Plan: Bronchiectasis, followed by | | Primary Montessori TeacherDr Maria. | + + + + + [...] she and Yuri sold their home in [place], | | she is busy doing yardwork and packing, most likely will be | | spending the winter in the [place] area. Tolerating | | medications. No changes [...] | | | MD | ([facility]) (Primary Dx); | | | | | | Mild airflow | | | | | | obstruction on | | | | | | pulmonary function | | | | | | test; ILD | | | | | | (interstitial lung | | | | | | disease) ([facility]); | | | | | | Atypical | | | | | | mycobacterial | | | | | | infection of lung | | | | | | ([facility]); Pulmonary | | | | | | [...] | | | | | ([facility]); Chronic | | | | | | obstructive | | | | | | pulmonary disease, | | | | | | unspecified COPD | | | | | | type ([facility]) | +--------+ + + + + from [...] + + | Father | | | [place] | | | | (Age | | [...] Dr | | | | | | [place] [address] | | | | | | [phone] | | | | | | | | +--------+ + + + + | 01/29/ | Office | | Nannette Morrison, | | | 2017 | Visit | | MD [address] | | | | | | Dr [address], | | | | | | [place] [address] | | | | | | [phone] | | | | | | | | +--------+ + + + + | 02/27/ | Office | | Sukhjinder, | | | 2017 | Visit | | Windy Aldrich, | | | | | | MD [address] | | | | | | [place] [address] | | | | | | [phone] | | | | | | | [...] RE | | | | [place] [address] | | | IP-OP | | | [...] Self | [birth year] | Home: | [address] | | | al/Fam | | 1940 | [phone] | [place] | | | [place] | | | [phone] | [address] | + +--------+ +--------+ + +
[~2017-10-27 16:50] MED LIST: SPIRIVA18 MCG INH
[2017-10-27] MEDS ORDERED: ALBUTEROL2.5 MG/3 M INH (17:07)
[2017-10-27] MEDS ORDERED: INCRUSE ELLI62.5 MCG INH (17:07)
[2017-10-27] MEDS ORDERED: LEVOFLOXACIN500 MG PO (17:08)
[2017-10-27] MEDS ORDERED: ZITHROMAX250 MG PO (19:29)
--- NOTE | 2017-10-29 07:21 | EKG ---
[facility] [address] [place] [address] Signed Sinus tachycardia Possible Left atrial enlargement Borderline ECG No previous ECGs available Confirmed by CANDY BURR MD ([id number]) on 10/29/2017 7:20:56 AM Electronically Signed By: CANDY BURR MD 10/29/17 0721 PATIENT NAME: OSCAR MARTINEZ Electrocardiogram DATE OF : 38 PHYSICIAN: CANDY BURR MD REPORT #: [id number] REPORT IS CONFIDENTIAL AND NOT TO BE RELEASED WITHOUT AUTHORIZATION
== END 2017-10-27 20:52 | disposition home or self-care (01) ==
LOC: ED 16:50
DX: R42 Dizziness and giddiness (principal); R00.2 Palpitations; T36.8X5A Adverse effect of other systemic antibiotics, initial encounter; J18.9 Pneumonia, unspecified organism; J40 Bronchitis, not specified as acute or chronic; Z88.1 Allergy status to other antibiotic agents; Z79.899 Other long term (current) drug therapy
CPT/HCPCS: 71046; 80053; 85025; 93005; 93010; 96374; 99284; J0696

== ENCOUNTER 2018-03-25 09:45 | Day surgery (SDC) | payer MEDICARE, OTHER ==
[~2018-03-25] VITALS: Ht 165.1 cm; Wt 61.2 kg
[~2018-03-25 09:45] MED LIST changes: +ALBUTEROL2.5 MG/3 M INH; +ASPIR-LOW81 MG PO; +INCRUSE ELLI62.5 MCG INH; +LEVOFLOXACIN500 MG PO; +ZITHROMAX250 MG PO
--- NOTE | 2018-03-25 14:34 | NUR ---
ATTEMPTED TO SCAN PT'S BARCODE TO DOCUMENT. COMPUTER IN OR#3 NOT EXCEPTING OF SCAN. MANUALLY ENTERED PT ACCOUNT NUMBER TO DOCUMENT START OF ANTIBIOTIC.
--- NOTE | 2018-03-25 15:30 | NUR ---
03/25/18 1530 Imelda Newman 1525-PATIENT ARRIVED TO PACU ON 6L MASK O2 SAT 100% PATIENT NONAROUSABLE ORAL AIRWAY IN PLACE. SR WITH PAC MENTAL RETARDATION AIDE AWARE. 4 LAP SITES TO KALLIE COX STRIPS SCANT AMT OF SHADOWING.
--- NOTE | 2018-03-25 16:14 | NUR ---
PATIENT ARRIVED TO DAY SURGERY AT 1600, NO NAUSEA OR PAIN REPORTED AT THIS TIME. X4 ABDOMINAL SCOPE SITES INTACT WITH STERI-STRIPS AND MINIMAL SEROUS DRAINAGE. PATIENT IS HAVING ICE CHIPS, DENIES WANTING ANYTHING TO EAT AT THIS TIME.
[2018-03-25] MEDS ORDERED: MAPAP325 MG PO (17:10)
[2018-03-25] MEDS ORDERED: PERCOCET 7.5-31 EACH PO (17:10)
--- NOTE | 2018-03-25 17:45 | NUR ---
PATIENT ARRIVED TO MEDICAL-SURGICAL FLOOR FROM PACU. VITAL SIGNS STABLE, PATIENT DENIES PAIN AND IS EATING DINNER. DISCUSSED PAIN MANAGEMENT OPTIONS WITH PATIENT. CALL LIGHT WITHIN REACH.
--- NOTE | 2018-03-25 17:54 | NUR ---
PATIENT TO MED SURG ROOM 107 FOR EXTENDED STAY, PATIENT HAS NOT BEEN ABLE TO EAT YET. REPORT GIVEN TO MARY SUE. DR. DAVE IS AWARE THAT PATIENT IS ON MED SURG FOR A SHORT AMOUNT OF TIME. SPOUSE HAS PAIN MEDICATION PRESCRIPTION AND IS GETTING THIS FILLED.
--- NOTE | 2018-03-25 19:00 | NUR ---
RECEIVED REPORT FROM MARY SULLIVAN. PT LAYING IN BED, NO COMPLAINTS OF PAIN OR NAUSEA AT THIS TIME. RECEIVED TYLENOL WHILE IN ROOM. CALL LIGHT IN REACH. FILLING PRECRIPTION.
--- NOTE | 2018-03-25 19:02 | NUR ---
PATIENT PREPARING FOR DISCHARGE. DISCUSSED WITH PATIENT PAIN MANAGEMENT FOR DRIVE HOME FOLLOWING DISCHARGE. 650 MG PO TYLENOL ADMINISTERED. CALL LIGHT WITHIN REACH, PATIENT DENIES FURTHER NEEDS AT THIS TIME.
--- NOTE | 2018-03-25 19:45 | NUR ---
DC ASSESSMENT COMPLETED. COURSE LUNG SOUNDS THROUGHOUT. DRESSING REINFORCED IN RIGHT LOWER QUADRANT. PT DENIES PAIN AND NAUSEA AT THIS TIME. IV DC'ED WNL.
--- NOTE | 2018-03-27 09:27 | OR ---
[facility] [address], [place] [address] Signed DATE OF OPERATION: 03/25/2018 SURGEON: Lacey Dave MD PREOPERATIVE DIAGNOSIS: Chronic calculous cholecystitis. POSTOPERATIVE DIAGNOSIS: Chronic calculous cholecystitis. PROCEDURES PERFORMED: 1. Laparoscopic cholecystectomy with intraoperative cholangiogram. 2. Surgeon-directed fluoroscopy. ANESTHESIA: General endotracheal, Rich Montez CRNA and local 10 mL of 0.25% Marcaine with epinephrine. INDICATION: This 77-year-old white woman has had chronic upper abdominal pain. She has various other diagnoses including past history of gastroparesis. She has had laparoscopic anti-reflux surgery in the past elsewhere. She was found on gallbladder ultrasound to have small gallstones and chronic inflammatory change. She was admitted at this time to undergo cholecystectomy preferred by laparoscopic approach. The risks of bleeding, infection, bile duct injury, and need for open procedure were discussed in detail. She understands and wished to proceed. FINDINGS: The gallbladder was chronically inflamed. There were filmy adhesions to the undersurface of the gallbladder. Gallbladder once excised, she had multiple small yellow gallstones. Cholangiogram showed no sign of filling defect, though the common duct was rather dilated. There was no sign of neoplasm. DESCRIPTION OF PROCEDURE: The patient was brought to the operating room, given a general endotracheal anesthetic. Preoperative antibiotics had been given. Sequential compression device stockings were used and heparin subcutaneously administered. The abdomen was prepared with a chlorhexidine solution and draped sterilely. An infraumbilical incision was made and using an open Archie cannula technique, pneumoperitoneum was achieved to a level of 14 mmHg of carbon dioxide gas. Intraabdominal inspection showed no sign of ascites or Electronically Signed By: LACEY DAVE MD 03/27/18 0927 PATIENT NAME: OSCAR MARTINEZ OPERATIVE REPORT DATE OF : 38 REPORT #: [id number] PHYSICIAN: LACEY DAVE MD PCP: ALEXANDRE SAUCEDO MD REPORT IS CONFIDENTIAL AND NOT TO BE RELEASED WITHOUT AUTHORIZATION [facility] [address], [place] [address] Signed carcinomatosis. The gallbladder was chronically inflamed. Three additional trocars were placed in usual configuration in the subxiphoid, right midclavicular, and right anterior axillary line. The gallbladder was dissected free after elevating the gallbladder and freeing omental adhesions to its undersurface. The cystic artery and cystic duct were well defined. The cystic artery was doubly-clipped and divided. The clip was applied across gallbladder cystic duct junction. A transverse choledochotomy was made in the cystic duct and retrograde milking of the duct showed egress of clear bile and no stones. Using the Lyle type cholangiocatheter, intraoperative cholangiography was undertaken showing free flow of contrast in biliary tree with prompt emptying into the duodenum. There was no sign of filling defect. The cystic duct was triply clipped and divided. The gallbladder dissected free in a retrograde fashion using electrocautery. The gallbladder extracted through the infraumbilical port site and opened on the back table and found to have small stones, chronic inflammatory change in mucosa with chronic inflammation. Irrigation was undertaken in the subhepatic space. Excess irrigation was suctioned free. There was no sign of bile leak or other problem. The trocars were removed under direct visualization showing no sign of bleeding. The infraumbilical fascial incision was reapproximated with interrupted 0 Vicryl suture. All wounds were copiously irrigated with saline solution and skin closed with interrupted 3-0 Vicryl after application of 10 mL of 0.25% Marcaine with epinephrine. Steri-Strips were applied. The patient was ultimately extubated and transferred to recovery room in good condition having suffered no complications. Sponge, needle, and instrument counts reported as correct x3. MD INOCENTE Smith/ROBINAL /[id number] cc: Alexandre Saucedo MD Copies: ALEXANDRE SAUCEDO MD ~ Electronically Signed By: LACEY DAVE MD 03/27/18 0927 PATIENT NAME: OSCAR MARTINEZ OPERATIVE REPORT DATE OF : 38 REPORT #: [id number] PHYSICIAN: LACEY DAVE MD PCP: ALEXANDRE SAUCEDO MD REPORT IS CONFIDENTIAL AND NOT TO BE RELEASED WITHOUT AUTHORIZATION
== END 2018-03-25 19:55 | disposition home or self-care (01) ==
LOC: DS 09:45 → MS 17:40 → FBC 17:40 → DS 19:55
PROVIDERS: Surgery
PROC: BF13YZZ Fluoroscopy of Gallbladder and Bile Ducts using Other Contrast (ICD-10-PCS; 2018-03-25)
PROC: 0FT44ZZ Resection of Gallbladder, Percutaneous Endoscopic Approach (ICD-10-PCS; principal; 2018-03-25 11:45)
DX: K81.1 Chronic cholecystitis (principal); J44.9 Chronic obstructive pulmonary disease, unspecified; I25.10 Atherosclerotic heart disease of native coronary artery without angina pectoris; K21.0 Gastro-esophageal reflux disease with esophagitis; K31.84 Gastroparesis; Z88.1 Allergy status to other antibiotic agents; Z88.8 Allergy status to other drugs, medicaments and biological substances; Z79.82 Long term (current) use of aspirin; Z79.899 Other long term (current) drug therapy
CPT/HCPCS: 00790; 74300; 88304; J0690; J1100; J1644; J1885; J2250; J2405; J2704; J2765; J3010; J7120; Q9967

== ENCOUNTER 2018-11-20 17:20 | Emergency (ER) | payer MEDICARE, OTHER ==
[~2018-11-20] VITALS: Ht 165.1 cm; Wt 59.4 kg
--- OUTSIDE RECORDS SUMMARY | ~2018-11-20 | XMS | Encounter Summary ---
Demographics + + + | Address | [address] | | | [place] [address] | + + + | Home Phone | | + + + | Preferred Language | Unknown | + + + | Marital Status | | + + + | Oriental Orthodox Affiliation | 1041 | + + + | Race | Unknown | + + + | Ethnic Group | Unknown | + + + Author + + + | Author | [facility] | | | and [place] | + + + | Organization | [facility] | | | and [place] | + + + | Address | Unknown | + + + | Phone | Unavailable | + + + Support + + +---------+ + | Name | Relationship | Address | Phone | + + +---------+ + | Sade Beckwith | ECON | Unknown | | + + +---------+ + | Yuri Posey | ECON | Unknown | | | (Jer) | | | | + + +---------+ + Care Team Providers + +------+ + | Care Commodity Merchant Name | Role | Phone | + +------+ + | Mike Saucedo MD | PCP | | + +------+ + Reason for Referral Evaluate & Treat (Routine) + + + + + + + | Status | Reason | Specialty | Diagnoses / | Referred By | Referred To | | | | | Procedures | Contact | Contact | + + + + + + + | Authorized | Specialty | Physical | Diagnoses | [facility], | [facility] | | | Services | Therapy | Weakness of | [place] [facility] | | | Required | | right hip | [facility] | PHYSICAL | | | | | S/P | [address] | | | | | orthopedic | [facility] | [facility] | | | | | surgery, | [place] | [place] | | | | | follow-up | [address] | [address] | | | | | exam | Phone: | Phone: | | | | | | [phone] | [phone] | | | | | | Fax: | Fax: | | | | | | [phone] | [phone] | + + + + + + + Encounter Details +--------+ + + + + | Date | Type | Department | Care Team | Description | +--------+ + + + + | 10/02/ | Orders Only | [facility] | Matti Magallanes | Weakness of right | | 2018 | | ORTHOPEDIC SURGERY | [address] | hip (Primary Dx); | | | | [address] [facility] | [facility] | S/P orthopedic | | | | [place], [place] | [facility] [place] [address] | surgery, follow-up | | | | [address] | [phone] | exam | | | | [phone] | | | +--------+ + + + + Social History + + + [...] | | | + +---+---+---+ + + +---------+ + | Alcohol Use [...] on file | | + + + + + + + | Job Start Date | Occupation | Industry | + + + + | Not on file | Not on file | Not on file | + + + + + + + + | Travel History | Travel Start | Travel End | + + + + + + | No recent travel history available. | + + documented as of this encounter Functional Status + + + + | Functional Status | Response | Date of Assessment | + + + + | Are you deaf or do you have serious | No | 07/17/2018 | | difficulty hearing? | | | + + + + | Are you blind or do you have serious | No | 07/17/2018 | | difficulty seeing, even when wearing | | | | glasses? | | | + + + + | Do you have serious difficulty walking or | No | 07/17/2018 | | climbing stairs? (5 years old or older) | | | + + + + | Do you have difficulty dressing or bathing? | No | 07/17/2018 | | (5 years old or older) | | | + + + + | Because of a physical, mental, or emotional | No | 07/17/2018 | | condition, do you have difficulty doing | | | | errands alone such as visiting a doctor's | | | | office or shopping? [15 years old or | | | | older)] | | | + + + + + + + + | Cognitive Status | Response | Date of Assessment | + + + + | Because of a physical, mental, or emotional | No | 07/17/2018 | | condition, do you have serious difficulty | | | | concentrating, remembering, or making | | | | decisions? (5 years old or older) | | | + + + + documented as of this encounter Plan of Treatment + +--------+ + + | Name | Priori | Associated Diagnoses | Order Schedule | | | ty | | | + +--------+ + + | Physical Therapy - Ambulatory | Routin | Weakness of right | Ordered: 10/02/2018 | | Referral | e | hip S/P orthopedic | | | | | surgery, follow-up | | | | | exam | | + +--------+ + + documented as of this encounter Visit Diagnoses + + | Diagnosis | + + | Weakness of right hip - Primary | + + | S/P orthopedic surgery, follow-up exam Follow-up examination, following other surgery | + + documented in this encounter"
--- OUTSIDE RECORDS SUMMARY | ~2018-11-20 | XMS | Encounter Summary ---
Demographics + + + | Address | [address] | | | [place] [address] | + + + | Home Phone | | + + + | Preferred Language | Unknown | + + + | Marital Status | | + + + | Advent Affiliation | 1041 | + + + | Race | Unknown | + + + | Ethnic Group | Unknown | + + + Author + + + | Author | [facility] | + + + | Organization | [facility] | + + + | Address | [...] | | + + +---------+ + | Alexandra Galarza ECON | Unknown | | + + +---------+ + Care Team Providers + +------+ + | Care Margin Clerk Name | Role | Phone | + +------+ + | Mike Saucedo MD | PCP | | + +------+ + Encounter Details +--------+ + + + + | Date | Type | Department | Care Team | Description | +--------+ + + + + | 10/14/ | Telephone | [facility] [place] | Jackie Garcia MA | | | 2019 | | Cardiology [place] | | | | | | [address] [facility] [address] | | | | | | Street [facility] [address] | | | | | | [place] [address] | | | | | | [phone] | | | +--------+ + + + + Social History + +-------+ +--------+ + | Tobacco Use | Types | Packs/Day | Years | Date | | | | | Used | | + +-------+ +--------+ + | Former Smoker | | 0.5 | 50 | Quit: 11/29/2005 | + +-------+ +--------+ + + +---+---+---+ | Smokeless Tobacco: [...] on file | | + + + as of this encounter Plan of Treatment +--------+---------+ + + + | Date | Type | Specialty | Care Team | Description | +--------+---------+ + + + | 02/04/ | Office | Cardiology | Alsamara, [place], | | | 2018 | Visit | | MD Angela Avalos | | | | | | [address], | | | | | | [place] [address] | | | | | | [phone] | | | | | | | | +--------+---------+ + + + | 05/19/ | Office | Pulmonology | Sukhjinder, | | | 2018 | Visit | | Windy Aldrich, | | | | | | MD [address] | | | | | | [place] [address] | | | | | | [phone] | | | | | | | | +--------+---------+ + + + as of this encounter Visit Diagnoses Not on filein this encounter"
--- OUTSIDE RECORDS SUMMARY | ~2018-11-20 | XMS | Encounter Summary ---
Demographics + + + | Address | [address] | | | [place] [address] | + + + | Home Phone | | + + + | Preferred Language | Unknown | + + + | Marital Status | | + + + | Islam Affiliation | 1041 | + + + | Race | Unknown | + + + | Ethnic Group | Unknown | + + + Author + + + | Author | [facility] | + + + | Organization | [facility] | + + + | Address | [...] Team Providers + +------+ + | Care Loader Unloader Name | Role | Phone | + +------+ + | Mike Saucedo MD | PCP | | + +------+ + Reason for Visit + + + | Reason | Comments | + + + | Cardiac Event | urgent report | | Monitor | | + + + Encounter Details +--------+ + + + + | Date | Type | Department | Care Team | Description | +--------+ + + + + | 09/22/ | Documentati | [facility] [place] | Mery Devlin, | Cardiac Event | | 2019 | on Only | Cardiology [facility] | ERICA | Monitor (urgent | | | | [address] | | report) | | | | [place], [place] | | | | | | [address] | | | | | | [phone] | | | +--------+ + + + [...] + + + as of this encounter Progress Notes Nannette Morrison MD - 09/22/2018 8:49 AM PSTReceived patient report for new onset A-Fib, heart rate 106bpm, on 09/20/2018, short episode less than 30 seconds. Medications: ASA 81mg Will follow up with the patient. 30 day event monitor placed 09/18/2018. Will continue to monitor. in this encounter Plan of Treatment +--------+---------+ + + + | Date | Type | Specialty | Care Team | Description | +--------+---------+ + + + | 02/04/ | Office | Cardiology | Nannette Morrison, | | | 2018 | Visit | | MD Angela Avalos | | | | | | [address], | | | | | | [place] [address] | | | | | | [phone] | | | | | | | | +--------+---------+ + + + | 05/19/ | Office | Pulmonology | Sukhjinder, | | | 2018 | Visit | | Windy Aldrich, | | | | | | MD [address] | | | | | | [place] [address] | | | | | | [phone] | | | | | | | | +--------+---------+ + + + as of this encounter Visit Diagnoses Not on filein this encounter"
--- OUTSIDE RECORDS SUMMARY | ~2018-11-20 | XMS | Encounter Summary ---
Demographics + + + | Address | [address] | | | [place] [address] | + + + | Home Phone | | + + + | Preferred Language | Unknown | + + + | Marital Status | | + + + | Sabianism Affiliation | 1041 | + + + | Race | Unknown | + + + | Ethnic Group | Unknown | + + + Author + + + | Author | [facility] | | | and [place] | + + + | Organization | [facility] | | | [...] Team Providers + +------+ + | Care Sourcing Assistant Name | Role | Phone | + +------+ + | Mike Saucedo MD | PCP | | + +------+ + Encounter Details +--------+ + + + + | Date | Type | Department | Care Team | Description | +--------+ + + + + | 09/24/ | Orders Only | [facility] | Abdi Wallace | Right hip pain | | 2019 | | ORTHOPEDIC SURGERY | MD Casandra [address] | (Primary Dx); Status | | | | [address] [facility] | SHAKADaniela [place]iel[place] | post hip surgery | | | | [place] | [address] | | | | | [address] | | | | | | [phone] | | | +--------+ + + + [...] Not on filedocumented as of this encounter Results XR Hip Right 2-3 Views (10/02/2018 11:01 PDT) + + | Specimen | + [...] Procedure Note | + + | Jose, Mookie Results In - 10/02/2018 1118 PDT EXAM:XR HIP RIGHT 2-3 VIEWS | [...] | + + | Right hip pain - Primary Pain in joint, pelvic region and thigh | + + | Status post hip surgery | + + documented in this encounter"
--- OUTSIDE RECORDS SUMMARY | ~2018-11-20 | XMS | Encounter Summary ---
Demographics + + + | Address | [address] | | | [place] [address] | + + + | Home Phone | | + + + | Preferred Language | Unknown | + + + | Marital Status | | + + + | Samaritan Affiliation | 1041 | + + + | Race | Unknown | + + + | Ethnic Group | Unknown | + + + Author + + + | Author | [facility] | + + + | Organization | [facility] | + + + | Address | [...] Providers + +------+ + | Care Chief Operator Hydroformer Name | Role | Phone | + +------+ + | Mike Saucedo MD | PCP | | + +------+ + Encounter Details +--------+ + + + + | Date | Type | Department | Care Team | Description | +--------+ + + + + | 10/01/ | Telephone | [facility] [place] | Gavino, | | | 2019 | | Cardiology [facility] | ERICA Adrian | | | | | [address] | | | | | | [facility] [address] | | | | | | [place] [address] | | | | | | [phone] | | | +--------+ + + + [...] 2019 | Visit | | MD Angela Avalos | | | | | | Dr [address], | | | | | | [place] [address] | | | | | | [phone] | | | | | | | | +--------+---------+ + + + | 05/19/ | Office | Pulmonology | [facility], | | | 2018 | Visit | | Windy Aldrich, | | | | | | [address] | | | | | | [place] [address] | | | | | | [phone] | | | | | | | | +--------+---------+ + + + as of this encounter Visit Diagnoses Not on filein this encounter"
--- OUTSIDE RECORDS SUMMARY | ~2018-11-20 | XMS | Encounter Summary ---
Demographics + + + | Address | [address] | | | [place] [address] | + + + | Home Phone | | + + + | Preferred Language | Unknown | + + + | Marital Status | | + + + | Jainism Affiliation | 1041 | + + + | Race | Unknown | + + + | Ethnic Group | Unknown | + + + Author + + + | Author | [facility] | + + + | Organization | [facility] | + + + | Address | [...] Team Providers + +------+ + | Care Instrument Mechanic Weapons System Name | Role | Phone | + +------+ + | Mike Saucedo MD | PCP | | + +------+ + Reason for Visit + + + | Reason | Comments | + + + | Cardiac Event | 30 day | | Monitor | | + + + Encounter Details +--------+ + + + + | Date | Type | Department | Care Team | Description | +--------+ + + + + | 09/18/ | Documentati | [facility] [place] | Nannette Morrison, | Cardiac Event | | 2019 | on Only | Cardiology [facility] | [address] | Monitor (30 day) | | | | [address] | [address], | | | | | [place] [address] | [place] [address] | | | | | [place] [address] | [phone] | | | | | [phone] | | | | | | | Jackie Garcia MA | | +--------+ + + + + [...] + as of this encounter Progress Notes Jackie Garcia MA - 09/18/2018 3:30 PM day rn cardiac placed on patient. EOB/B illing information discussed. Instructions given and understood. Patient instructed to florecita Acosta for any billing or monitor questions. in this encounter Plan of Treatment +--------+---------+ + + + | Date | Type | Specialty | Care Team | Description | +--------+---------+ + + + | 02/04/ | Office | Cardiology | Nannette Morrison, | | | 2018 | Visit | | MD Angela Avalos | | | | | | Dr [address], | | | | | | [place] [address] | | | | | | [phone] | | | | | | | | +--------+---------+ + + + | 05/19/ | Office | Pulmonology | Sukhjinder, | | | 2018 | Visit | | Windy Aldrich, | | | | | | MD [address] | | | | | | [place] [address] | | | | | | [phone] | | | | | | | | +--------+---------+ + + + as of this encounter Visit Diagnoses + + | Diagnosis | + + | Paroxysmal atrial fibrillation (HCC) | + + | Atrial fibrillation | + + | Chronic obstructive pulmonary disease, unspecified COPD type (HCC) | + +"
--- OUTSIDE RECORDS SUMMARY | ~2018-11-20 | XMS | Clinical Summary ---
Demographics + + + | Address | [address] | | | [place] [address] | + + + | Home Phone | | + + + | Preferred Language | Unknown | + + + | Marital Status | | + + + | Temple Affiliation | 1041 | + + + | Race | Unknown | + + + | Ethnic Group | Unknown | + + + Author + + + | Author | [email or web address] | + + + | Organization | [facility] | + + + | Address | Unknown | + + + | Phone | Unavailable | + + + Support + + +---------+ + | Name | Relationship | Address | Phone | + + +---------+ + | Sade Beckwith | ECON | Unknown | | + + +---------+ + | Yuri Martinez | ECON | Unknown | | | ([place]) | | | | + + +---------+ + | Alexandra Galarza | ECON | Unknown | | + + +---------+ + Care Team Providers + +------+ + | Care Transcriber Name | Role | Phone | + +------+ + | Mike Saucedo MD | PP | | + +------+ + Allergies + + + + + + | Active Allergy | Reactions | Severity | Noted | Comments | | | | | Date | | + + + + + + | Alendronate | Other (See Comments) | Medium | 03/20/20 | | | | | | 18 | | + + + + + + | Ciprofloxacin | GI Distress, Other | Medium | 11/30/19 | | | | (See Comments) | | 17 | | + + + + + + | Flunisolide | Other (See Comments) | Medium | 01/30/20 | Cannot remember | | | | | 18 | | + + + + + + | Levofloxacin | Other (See Comments) | Medium | 01/30/20 | Increased heart | | | | | 18 | rate, weakness | + + + + + + | Lisinopril | Other (See Comments) | Medium | | | + + + + + + Current Medications + + + +---------+------+------+-------+ | Prescription | Sig. | Disp. | Refills | Star | End | Statu | | | | | | t | Date | s | | | | | | Date | | | + + + +---------+------+------+-------+ | albuterol | Take 3 mLs by | 336 mL | 5 | 10/1 | 10/1 | Activ | | (PROVENTIL) (2.5 | nebulization every 6 | | | 0/20 | 0/20 | e | | MG/3ML) 0.083% | (six) hours as | | | 18 | 19 | | | nebulizer | needed for Wheezing | | | | | | | solutionIndications: | (nebulize twice a | | | | | | | Bronchiectasis | day, and as needed). | | | | | | | without complication | | | | | | | | ([facility]), Mild airflow | | | | | | | | obstruction on | | | | | | | | pulmonary function | | | | | | | | test | | | | | | | + + + +---------+------+------+-------+ | metoprolol | Take 1 tablet by | 60 | 11 | 03/1 | 03/1 | Activ | | (LOPRESSOR) 50 MG | mouth 2 (two) times | tablet | | 20 | 220 | e | | tablet | daily. | | | 19 | 20 | | + + + +---------+------+------+-------+ | umeclidinium | Inhale 1 puff into | 1 | 5 | 03/ | | Activ | | bromide (INCRUSE | the lungs daily. | Inhaler | | 04/10 | | e | | ELLIPTA) 62.5 | | | | 19 | | | | MCG/INH | | | | | | | | inhalerIndications: | | | | | | | | Bronchiectasis | | | | | | | | without complication | | | | | | | | ([facility]), Chronic | | | | | | | | obstructive | | | | | | | | pulmonary disease, | | | | | | | | unspecified COPD | | | | | | | | type ([facility]) | | | | | | | + + + +---------+------+------+-------+ | warfarin | Take 1 tablet by | 30 | 11 | 03/2 | 03/2 | Activ | | (COUMADIN) 5 MG | mouth daily. | tablet | | 04/10 | 03/10 | e | | tablet | | | | | 20 | | + + + +---------+------+------+-------+ Active Problems + + + | Problem | Noted Date | + + + | Paroxysmal atrial fibrillation (HCC) | 08/27/2018 | + + + + + | Overview: Post op. | + + + + + | Closed fracture of hip (HCC) | 07/12/2018 | + + + | Gastro-esophageal reflux disease with esophagitis | 03/20/2018 | + + + | Moderate aortic regurgitation | 01/29/2018 | + + + | Rheumatic heart disease | 01/29/2018 | + + + | Atypical mycobacterial infection of lung ([facility]) | 05/31/2017 | + + + | Mild airflow obstruction on pulmonary function test | 02/19/2017 | + + + | Centrilobular emphysema ([facility]) | 02/19/2017 | + + + | Chronic obstructive pulmonary disease (HCC) | 11/19/2016 | + + + | ILD (interstitial lung disease) (HCC) | 11/19/2016 | + + + | Pulmonary nodule | 11/19/2016 | + + + | Chronic allergic rhinitis | 11/19/2016 | + + + | Personal history of tobacco use, presenting hazards to health | 11/19/2016 | + + + | Carcinoma in situ of right breast | 02/06/2015 | + + + + + | Last Assessment & Plan: Breast CA, in situ, right lumpectomy | | 1997, Rads, no chemo. | + + + + + | Basal cell carcinoma of cheek | 02/06/2015 | + + + + + | Last Assessment & Plan: Basal Cell CA, right cheek, 2013. | + + + + + | Gastroparesis | 02/06/2015 | + + + + + | Last Assessment & Plan: Hx Hiatal hernia, [facility] | | fundoplication, 2011. | + + + + + | Bronchiectasis (HCC) | 02/06/2015 | + + + + + | Last Assessment & Plan: Bronchiectasis, followed by | | Director Of Public HealthDr Maria. | + + + + + | Bilateral carotid artery stenosis | 02/03/2015 | + + + + + | Last Assessment & Plan: Carotid stenosis, bilaterally, a | | symptomic. Denies any new visual disturbances, dysarthria, | | dysphasia, lateralizing signs or symptoms. Last carotid US, | | 02/18/2015: mild disease lazara. | + + + + + | PAD (peripheral artery disease) | 02/03/2015 | + + + + + | Last Assessment & Plan: Claudication, ernie symptomatic, | | bilaterally. TORSTEN, 02/28/2015: mild disease, lazara. | + + Resolved Problems + + + + | Problem | Noted | Resolved | | | Date | Date | + + + + | Carotid artery disease (HCC) | 01/30/20 | | | | 18 | 8 | + + + + + + | Overview: Overview: | | carotid US 2010 50-69% mid L ICA stenosis | + + + + + + | VHD (valvular heart disease) | 02/04/20 | | | | 15 | 8 | + + + + + + | Last Assessment & Plan: Hx Rheumatic Valvular Heart Disease. | | 75yo WF, admits mild exertional shortness of breath and | | fatigue, no orthopnea or PND, no significant edema. Usually | | skipped beats, she's unaware of any chest pain per se. | | Relatively mild symptoms of claudication. Denies any new visual | | disturbances, dysarthria, dysphasia, lateralizing signs or | | symptoms. Although blood pressure mildly elevated today, she is | | checking her blood pressures at home, it seems to be in the | | normal range at home. Results of echocardiogram and labs | | reviewed. Apparently she and Yuri sold their home in [place], | | she is busy doing yardwork and packing, most likely will be | | spending the winter in the [facility]. Tolerating | | medications. No changes in therapy. Will follow clinically.Last | | Echo, 02/14/2016: LV dimensions NML, LVEF 65-70%, moderate LAE, | | calcified nodule on left coronary cusp, moderate AI, mild MR, | | mild TR, trace PI, PAP 27-32mmHg.24hr HM, 11/18/2011: sinus | | rhythm, 49-96bpm, frequent PAC's, PVC.ECG, 02/04/2016: sinus | | rhythm, LAE.Labs, 01/26/2016: Liver enzymes NML, K: 43.6 BUN/Cr: | | 17/0.8, glu: 117 | + + Encounters +--------+ + + + + | Date | Type | Specialty | Care Team | Description | +--------+ + + + + | 11/17/ | Office | | Sukhjinder | Bronchiectasis | | 2019 | Visit | | Windy Aldrich, | without complication | | | | | MD | ([facility]) (Primary Dx); | | | | | | Mild airflow | | | | | | obstruction on | | | | | | pulmonary function | | | | | | test; ILD | | | | | | (interstitial lung | | | | | | disease) ([facility]); | | | | | | Multiple pulmonary | | | | | | nodules; Atypical | | | | | | mycobacterial | | | | | | infection of lung | | | | | | ([facility]); Personal | | | | | | history of tobacco | | | | | | use, presenting | | | | | | hazards to health | +--------+ + + + + | 11/17/ | Initial | | Maksim Mckenzie | Paroxysmal atrial | | 2019 | consult | | MD Colten | fibrillation ([facility]) | | | | | | (Primary Dx); Aortic | | | | | | valve | | | | | | insufficiency, | | | | | | etiology of cardiac | | | | | | valve disease | | | | | | unspecified | +--------+ + + + + | 10/22/ | Office | | Nannette Morrison, | Bilateral carotid | | 2019 | Visit | | MD | artery stenosis | | | | | | (Primary Dx); PAD | | | | | | (peripheral artery | | | | | | disease); | | | | | | Bronchiectasis | | | | | | without complication | | | | | | ([facility]); ILD | | | | | | (interstitial lung | | | | | | disease) ([facility]); | | | | | | Paroxysmal atrial | | | | | | fibrillation ([facility]) | +--------+ + + + + | 10/17/ | Orders Only | | Nannette Morrison, | Paroxysmal atrial | | 2019 | | | MD | fibrillation ([facility]) | | | | | | (Primary Dx) | +--------+ + + + + | 10/14/ | Telephone | | Jackie Garcia MA | | | 2018 | | | | | +--------+ + + + + | 10/07/ | Refill | | Evelyn Kingston, | Bronchiectasis | | 2019 | | | [employer] | without complication | | | | | | ([facility]); Chronic | | | | | | obstructive | | | | | | pulmonary disease, | | | | | | unspecified COPD | | | | | | type ([facility]) | +--------+ + + + + | 10/01/ | Orders Only | | Nannette Morrison, | | | 2018 | | | MD | | +--------+ + + + + | 10/01/ | Telephone | | Gavino, | | | 2019 | | | ERICA Adrian | | +--------+ + + + + | 09/22/ | Documentati | | Mery Devlin, | Cardiac Event | | 2019 | on Only | | MA | Monitor (urgent | | | | | | report) | +--------+ + + + + | 09/18/ | Documentati | | Nannette Morrison, | Cardiac Event | | 2019 | on Only | | Jackie Alexander, | Monitor (30 day) | | | | | MA | | +--------+ + + + + | 09/18/ | Documentati | | Mery Devlin, | Cardiac Event | | 2019 | on Only | | MA | Monitor (end of | | | | | | study) | +--------+ + + + + | 08/27/ | Office | | Nannette Morrison, | PAD (peripheral | | 2019 | Visit | | | artery disease) | | | | | | (HCC) (Primary Dx); | | | | | | Moderate aortic | | | | | | regurgitation; | | | | | | Paroxysmal atrial | | | | | | fibrillation ([facility]); | | | | | | Chronic obstructive | | | | | | pulmonary disease, | | | | | | unspecified COPD | | | | | | type ([facility]); | | | | | | Centrilobular | | | | | | emphysema ([facility]) | +--------+ + + + + | 08/27/ | Documentati | | Alexandre Sapphire | Other ([facility] | | 2019 | on Only | | CHAPITO Garcia | records) | +--------+ + + + + from Last 3 Months Immunizations + + + + | Name | Dates Previously Given | Next Due | + + + + | H1N1 Monovalent 2009 | 10/25/2009 | | + + + + | INFLUENZA, PF | 2018, 04/16/2017 | | | TRIVALENT ADJUVANTED | | | | 65 YRS OR > | | | + + + + | INFLUENZA, PF | 04/13/2016, 2015, 04/07/2014 | | | TRIVALENT HIGH DOSE | | | | 65 YRS OR > | | | + + + + | Influenza, PF | 05/20/2015, 04/06/2014 | | | Recombinant, | | | | Trivalent (Flublok) | | | + + + + | Influenza, PF | 04/06/2014 | | | Trivalent | | | + + + + | Pneumococcal | 11/21/2016, 03/11/2015 | | | Conjugate 13-valent | | | + + + + | Pneumococcal | 07/22/2010, 07/22/1992 | | | Polysaccharide | | | | 23-valent | | | + + + + | Tdap | 11/21/2016, 07/22/1995 | | + + + + | Zoster (Live) | 12/27/2010, 07/22/2010 | | + + + + Family History + + +------+ + | Medical History | Relation | Name | Comments | + + +------+ + | Diabetes type II | Father | | | + + +------+ + | Heart disease | Father | | | + + +------+ + | Heart disease | Mother | | | + + +------+ + | High cholesterol | Mother | | | + + +------+ + | Hypertension | Mother | | | + + +------+ + | Stroke | Mother | | | + + +------+ + | Colon cancer | Sister | | | + + +------+ + + +------+ + + | Relation | Name | Status | Comments | + +------+ + + | Father | | | NH | | | | (Age | | | | | 90) | | + +------+ + + | Mother | | | CHF,heart disease,HTN,CVA | | | | (Age | | | | | 90) | | + +------+ + + | Sister | | | | + +------+ + + Social History + +-------+ +--------+ [...] + + + | Blood Pressure | 121/50 | 11/17/2018 11:22 AM PDT | + + + + | Pulse | 51 | 11/17/2018 11:22 AM PDT | + + + + | Temperature | 36.2 C (97.1 F) | 11/17/2018 11:22 AM PDT | + + + + | Respiratory Rate | 16 | 05/20/2018 10:29 AM PDT | + + + + | Oxygen Saturation | 99% | 11/17/2018 11:22 AM PDT | + + + + | Inhaled Oxygen | - | - | | Concentration | | | + + + + | Weight | 61.2 kg (135 lb) | 11/17/2018 11:22 AM PDT | + + + + | Height | 165.1 cm (5' 5") | 11/17/2018 11:22 AM PDT | + + + + | Body Mass Index | 22.47 | 11/17/2018 11:22 AM PDT | + + + + Plan of Treatment +--------+---------+ + + + | Date | Type | Specialty | Care Team | Description | +--------+---------+ + + + | 02/04/ | Office | | Nannette Morrison, | | | 2018 | Visit | | MD Angela Avalos | | | | | | Dr [address] | | | | | | [place] [address] | | | | | | [phone] | | | | | | | | +--------+---------+ + + + | 05/19/ | Office | | Sukhjinder, | | | 2018 | Visit | | Windy Aldrich | | | | | | MD Angela [address] | | | | | | [place] [address] | | | | | | [phone] | | | | | | | | +--------+---------+ + + + + + + + + | Health Maintenance | Due Date | Last Done | Comments | + + + + + | DEXA SCAN SCREENING | | | | | | 4 | | | + + + + + | Vaccine: Zoster (2 | | 12/27/2010, 07/22/2010 | | | of 3) | 1 | | | + + + + + | Vaccine: | | 11/21/2016, 07/22/1995 | | | Dtap/Tdap/Td (3 - | 7 | | | | Td) | | | | + + + + + | Vaccine: | Completed | 11/21/2016, 03/11/2015, | | | Pneumococcal 65+ | | 07/22/2010, Additional history | | | Low/Medium Risk | | exists | | + + + + + | Vaccine: Influenza | Completed | 2018, 04/16/2017, | | | | | 04/13/2016, Additional history | | | | | exists | | + + + + + Procedures + +--------+ + + + | Procedure Name | Priori | Date/Time | Associated Diagnosis | Comments | | | ty | | | | + +--------+ + + + | EKG STANDARD 12 LEAD | Routin | 11/17/2018 | Paroxysmal atrial | Results for this | | | e | 10:35 AM | fibrillation (HCC) | procedure are in the | | | | PDT | | results section. | + +--------+ + + + | EKG STANDARD 12 LEAD | Routin | 08/27/2018 | PAD (peripheral | Results for this | | | e | 12:30 PM | artery disease) | procedure are in the | | | | PST | (HCC) Moderate | results section. | | | | | aortic regurgitation | | + +--------+ + + + from Last 3 Months Results EKG STANDARD 12 LEAD (11/17/2018 10:35 AM)Only the most recent of 2 results within the time period is included. + + + + + | Component | Value | Ref Range | Performed At | + + + + + | Ventricular Rate | 56 | BPM | [facility] | + + + + + | Atrial Rate | 56 | BPM | [facility] | + + + + + | P-R Interval | 160 | ms | [facility] | + + + + + | QRS Duration | 78 | ms | [facility] | + + + + + | Q-T Interval | 458 | ms | [facility] | + + + + + | QTC Calculation | 441 | ms | [facility] | | (Estela) | | | | + + + + + | Calculated P [place] | 63 | degrees | [facility] | + + + + + | Calculated R [place] | 31 | degrees | [facility] | + + + + + | Calculated T [place] | 54 | degrees | [facility] | + + + + + | Diagnosis | Please refer to | | [facility] | | | Providers office visit | | | | | note for Providers | | | | | Interpretation.Confirmed | | | | | by [facility] Read Only, | | | | | LOUISA Avalos ([id number]), | | | | | assignment editor Jamal Jacome | | | | | ([phone]) on 11/17/2018 | | | | | 10:35:41 AM | | | + + + + + + + + + + | Performing | Address | City/State/Zipcode | Phone Number | | Organization | | | | + + + + + | [facility] | [address] | [place] [address] | | + + + + + from Last 3 Months Insurance + +--------+ +------+-------+ + | Payer | Benefi | Subscriber | Type | Phone | Address | | | t Plan | ID | | | | | | / | | | | | | | Group | | | | | + +--------+ +------+-------+ + | MEDICARE | MEDICA | [id number] | | | [address] | | | RE | | | | [place] [address] | | | IP-OP | | | | | + +--------+ +------+-------+ + | COMMERCIAL OTHER | COMMER | [id number] | | | | | | CIAL | | | | | | | GENERI | | | | | | | C PLAN | | | | | + +--------+ +------+-------+ + + +--------+ +--------+ + + | Guarantor Name | Accoun | Relation to | Date | Phone | Billing Address | | | t Type | Patient | of | | | | | | | | | | + +--------+ +--------+ + + | SHIREEN MARTINEZ I | Person | Self [birth year] Home: | [address] | | | al/Fam | | [phone] | [phone] [place] | | | zayda | | [phone] | [phone] | + +--------+ +--------+ + +
--- OUTSIDE RECORDS SUMMARY | ~2018-11-20 | XMS | Encounter Summary ---
Demographics + + + | Address | [address] | | | [place] [address] | + + + | Home Phone | | + + + | Preferred Language | Unknown | + + + | Marital Status | | + + + | Sabianist Affiliation | 1041 | + + + | Race | Unknown | + + + | Ethnic Group | Unknown | + + + Author + + + | Author | [facility] | | | and [place] | + + + | Organization | [facility] | | [...] Team Providers + +------+ + | Care Sales Representative Door To Door Name | Role | Phone | + +------+ + | Mike Saucedo MD | PCP | | + +------+ + Reason for Visit +---------+ + | Reason | Comments | +---------+ + | Post Op | right hip hemiarthroplasty DOS 07/13/18 | +---------+ + Encounter Details +--------+---------+ + + + | Date | Type | Department | Care Team | Description | +--------+---------+ + + + | 10/02/ | Office | [facility] | Matti Magallanes | S/P orthopedic | | 2018 | Visit | ORTHOPEDIC SURGERY | [address] | surgery, follow-up | | | | [address] [facility] | [facility] | exam (Primary Dx); | | | | [place], [place] | [place] [address] | Weakness of right | | | | [address] | [phone] | hip | | | | [phone] | | | +--------+---------+ + + + [...] + + + | Blood Pressure | - | - | + + + + | Pulse | - | - | + + + + | Temperature | - | - | + + + + | Respiratory Rate | - | - | + + + + | Oxygen Saturation | - | - | + + + + | Inhaled Oxygen | - | - | | Concentration | | | + + + + | Weight | 63 kg (139 lb) | 10/02/20181111 PDT | + + + + | Height | 165.1 cm (5' 5") | 10/02/20181111 PDT | + + + + | Body Mass Index | 23.13 | 10/02/20181111 PDT | + + + + documented in this encounter Functional Status + + + [...] + + documented as of this encounter Progress Matti Barajas PA-C - 10/02/2018 1130 PDTFormatting of this note might be different f rom the original. Name:Shireen Posey Todays Date: 10/02/2018 Age: 78 y.o. PCP: Mike Saucedo MD Chief Complaint Patient presents with Post Op right hip hemiarthroplasty DOS 07/13/18 SUBJECTIVE: Patient returns today for postoperative visit of right total hip arthroplasty performed jus aline valencia of 3 months ago. This is she has no significant pain at the right hip to which most p leased. Describes that she does have some weakness and difficulty with normal activities se condary to weakness. She is not taking any prescribed diwg-xkj-bvveozy pain medication. Cu rrent level pain is 0 OBJECTIVE: Incision site at the right hip is healed appropriately and well. No evidence of complicati on or infection. Ambulates without assistance of a walker and/or cane. She is full weightb earing with a subtle abnormal gait. She has normal hip flexion and extension from a seated position but does have decreased internal and neck show rotation by about 5 at each area. This does cause her discomfort. Decreased flexion strength against resistance to about 50% compared to the left leg. Imaging/Studies:Xr Hip Right 2-3 Views Result Date: 10/02/2018 EXAM:XR HIP RIGHT 2-3 VIEWS CLINICAL HISTORY: right hip hemiarthroplasty performed on 07/13 COMPARISON: 07/13/2018 FINDINGS: Frontal view of the pelvis. There are hemiarthroplasty changes on the right. There is no evidence for a component related complication. There ar e expected operative changes in the soft tissues. IMPRESSION - No radiographic evidence for an interval complication. Dictated and Signed by: Marin Choudhury MD Electronically signed : 10/02/2018 11:15 AM Vitals: 10/02/18 1112 Weight: 63 kg (139 lb) Height: 1.651 m (5' 5") ASSESSMENT/PLAN: 1. Right hip arthroplasty, status postop A. she has ultimately recovered quite well and appropriately from right total hip arthropl asty performed almost 3 months ago. Review of plain film imaging study obtained today revea ls progressive bony callus formation sclerotic healing. Overall she is pleased with her rec overy but notes continued to have some weakness of the right hip. We discussed this at do [facility] a formal course of outpatient physical therapy to which she is agreeable and partic ipating with. I will refer her to [facility] for outpatient physical therapy for range of mo tion strengthening of the right lower extremity. It has been a pleasure to provide care for her and follow up in my office will now be when necessary. B. Patient is advised that if they have any questions, comments or concerns to contact our office. Electronically signed by: Matti Magallanes PA-C 10/02/2018 12:52 If patient received pain medication today the prescription monitoring program was reviewed and patient appears to be in compliance with his program. This note was dictated using the [employer] voice recognition system. Minor errors in grammar may have occurred. documented in this encounter Plan of Treatment Not on filedocumented as of this encounter Visit Diagnoses + + | Diagnosis | + + | S/P orthopedic surgery, follow-up exam - Primary Follow-up examination, following | | other surgery | + + | Weakness of right hip | + + documented in this encounter
--- OUTSIDE RECORDS SUMMARY | ~2018-11-20 | XMS | Encounter Summary ---
Demographics + + + | Address | [address] | | | [place] [address] | + + + | Home Phone | | + + + | Preferred Language | Unknown | + + + | Marital Status | | + + + | Worship Affiliation | 1041 | + + + | Race | Unknown | + + + | Ethnic Group | Unknown | + + + Author + + + | Author | [facility] | + + + | Organization | [facility] | + + + | Address | [...] Team Providers + +------+ + | Care Glassworker Name | Role | Phone | + +------+ + | Mike Saucedo MD | PCP | | + +------+ + Reason for Referral Echo (Routine) + +--------+ + + + + | Status | Reason | Specialty | Diagnoses / | Referred By | Referred To | | | | | Procedures | Contact | Contact | + +--------+ + + + + | Pending | | | Diagnoses | Magaly, | | | Review | | | Aortic | Maksim | | | | | | valve | MD Colten | | | | | | insufficienc | [address] | | | | | | y, etiology | [address] | | | | | | of cardiac | [place] | | | | | | valve | [place] | | | | | | disease | [id number] | | | | | | unspecified | Phone: | | | | | | Procedures | [phone] | | | | | | Echo | Fax: | | | | | | cardiac | [phone] | | | | | | adult | | | | | | | complete | | | + +--------+ + + + + Reason for Visit + + + | Reason | Comments | + + + | Consultation | | + + + Cardiac Electrophysiology (Routine) +--------+ + + + + + | Status | Reason | Specialty | Diagnoses / | Referred By | Referred To | | | | | Procedures | Contact | Contact | +--------+ + + + + + | Closed | Specialty | Electrophysio | Diagnoses | Alsamara, | Magaly, | | | Services | logy / | Bilateral | MD Nannette | Maksim | | | Required | Cardiology | carotid | [address] | MD [address]ten | | | | | artery | [place] | [address] | | | | | stenosis | [place] | [address] [address] | | | | | Peripheral | [place] | [place] | | | | | arterial | [address] | [address] Phone: | | | | | disease | Phone: | [phone] | | | | | (HCC) | [phone] | Fax: | | | | | Bronchiectas | Fax: | [phone] | | | | | is without | [phone] | | | | | | complication | | | | | | | (HCC) 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 | | | | | | | l lung | | | | | | | disease) | | | | | | | (HCC) | | | | | | | Paroxysmal | | | | | | | atrial | | | | | | | fibrillation | | | | | | | ([facility]) | | | +--------+ + + + + + Encounter Details +--------+ + + + + | Date | Type | Department | Care Team | Description | +--------+ + + + + | 11/17/ | Initial | [facility] | Maksim Mckenzie | Paroxysmal atrial | | 2019 | consult | [facility]iology [facility] | MD [address] | fibrillation (HCC) | | | | [address] | [address] | (Primary Dx); Aortic | | | | [place], [place] | [place] [address] | valve | | | | [address] | [phone] | insufficiency, | | | | [phone] | | etiology of cardiac | | | | | | valve disease | | | | | | unspecified | +--------+ + + + + Social [...] + + + | Blood Pressure | 146/48 | 11/17/2018 10:31 AM PDT | + + + + | Pulse | 57 | 11/17/2018 10:31 AM PDT | + + + + | Temperature | - | - | + + + + | Respiratory Rate | - | - | + + + + | Oxygen Saturation | 100% | 11/17/2018 10:31 AM PDT | + + + + | Inhaled Oxygen | - | - | | Concentration | | | + + + + | Weight | 61.2 kg (135 lb) | 11/17/2018 10:31 AM PDT | + + + + | Height | 165.1 cm (5' 5") | 11/17/2018 10:31 AM PDT | + + + + | Body Mass Index | 22.47 | 11/17/2018 10:31 AM PDT | + + + + in this encounter Progress Notes Maksim Mckenzie MD - 11/17/2018 10:15 AM PDTFormatting of this note may be diffe rent from the original. Subjective: Referring MD: Nannette Morrison MD Chief Complaint Patient presents with Consultation HPI: This is a 78 y.o. female presents today for an initial evaluation of atrial fibrillati on. Ms. Posey underwent hip surgery in June 2018 at an outside hospital. An episod e of atrial fibrillation was noted on postoperative day #1 by her account. Ultimately the a trial fibrillation converted to sinus rhythm prior to discharge. She was then placed on ant icoagulation with warfarin and has followed up with cardiology. An echocardiogram demonstra sophie normal left ventricular function in 2016. She worn event monitor for 26 days recently a nd atrial fibrillation was noted with an overall burden less than 1%. The longest episode o f atrial fibrillation was around 3 hours. She has never noted any palpitations and continue s to do her usual activity without any new limitations or symptoms. She continues to follow with pulmonology for her bronchiectasis. She denies any current chest pain, shortness of b reath, dizziness, lightheadedness, or recent syncope. She continues on anticoagulation with warfarin. She reports her INR was greater than 2 recently. Past Medical History Diagnosis Date Aortic regurgitation moderate on echo 12/05 Atrial fibrillation (HCC) 07/08 post hip surgery - episodes on monitor 10/07 - AC Bilateral claudication of lower limb (HCC) Bronchiectasis (HCC) CAD (coronary artery disease) Carotid stenosis left 50-69% ICA stenosis on US 2009 Chronic sinusitis COPD (chronic obstructive pulmonary disease) (HCC) Gastroparesis History of breast cancer Intra-abdominal hernia Osteopenia Pityriasis rosea Polyp of colon Pulmonary fibrosis (HCC) Pulmonary nodule Rheumatic heart disease Past Surgical History Procedure Laterality Date APPENDECTOMY BASAL CELL CARCINOMA EXCISION Right cheek BREAST LUMPECTOMY Right lumpectomy-right breast CHOLECYSTECTOMY COLONOSCOPY 2013 Event Monitor 09/2018 26 days: NSR 48-117 (71), SB with sleep, a fib (0.85% - longest 3 hr - avg rate 128 bpm), occ PVC vs aberrancy during a fib, atrial runs, triggers with NSR and a fib GALLBLADDER SURGERY 03/25/2018 HERNIA REPAIR KNEE ARTHROSCOPY Right POLYPECTOMY TONSILLECTOMY TONSILLECTOMY AND ADENOIDECTOMY TOTAL HIP ARTHROPLASTY TRANSTHORACIC ECHOCARDIOGRAM 11/2016 EF 65-70%, mild LA dil, mod AI, mild MR, mild-mod TR, RVSP 30 UNLISTED PROCEDURE ARTHROSCOPY UPPER GASTROINTESTINAL ENDOSCOPY 2010 Family History Problem Relation Age of Onset Heart disease Mother Stroke Mother Hypertension Mother High cholesterol Mother Heart disease Father Diabetes type II Father Colon cancer Sister Social History Social History Marital status: Spouse name: N/A Number of children: N/A Years of education: N/A Occupational History retired Social History Main Topics Smoking status: Former Smoker Packs/day: 0.50 Years: 50.00 Quit date: 11/29/2005 Smokeless tobacco: Never Used Alcohol use No Drug use: No Sexual activity: Not Asked Other Topics Concern None Social History Narrative None Review of Systems: All other systems are negative. Current Outpatient Prescriptions Medication Sig Dispense Refill albuterol (PROVENTIL) (2.5 MG/3ML) 0.083% nebulizer solution Take 3 mLs by nebulization every 6 (six) hours as needed for Wheezing (nebulize twice a day, and as needed). 336 mL 5 metoprolol (LOPRESSOR) 50 MG tablet Take 1 tablet by mouth 2 (two) times daily. 60 tabl et 11 umeclidinium bromide (INCRUSE ELLIPTA) 62.5 MCG/INH inhaler Inhale 1 puff into the lung s daily. 1 Inhaler 5 warfarin (COUMADIN) 5 MG tablet Take 1 tablet by mouth daily. 30 tablet 11 No current facility-administered medications for this visit. Allergies Allergen Reactions Alendronate Other (See Comments) Ciprofloxacin GI Distress and Other (See Comments) Flunisolide Other (See Comments) Cannot remember Levaquin [Levofloxacin] Other (See Comments) Increased heart rate, weakness Lisinopril Other (See Comments) Objective: Vitals: 11/17/18 1031 BP: 146/48 Pulse: 57 SpO2: 100% Weight: 61.2 kg (135 lb) Height: 1.651 m (5' 5") Body mass index is 22.47 kg/m. Exam: General: Patient is alert, pleasant, cooperative, and in no acute distress. Eyes: Sclerae anicteric. Ears: External ears normal. Nose: External nose normal. Oral exam: No oral lesions noted. Neck: Trachea midline. No thyromegaly. No elevation of jugular venous pressure. No ritchie tid bruits. Lungs: Clear to auscultation bilaterally. No wheezes, rales, or rhonchi. Heart: Regular rate and rhythm. Normal S1/S2. No murmurs, gallops, rubs. Abdomen: Bowel sounds present. Soft, nondistended. No masses or hepatosplenomegaly noted . No significant tenderness noted. Extremities: No clubbing or cyanosis noted. No lower extremity edema noted. Pulses: Intact bilateral radial and pedal pulses. Musculoskeletal: No obvious arthritic change noted of the knees. Skin: Warm and dry. Psychiatric: Patient is alert and oriented to person, place, and day. Mood and affect nor mal. Neurological: Patient is intact to light touch in the upper and lower extremities bilateral ly. Review of studies: ECG: Sinus bradycardia at 56 bpm, normal, compared to the EKG of August 2018 resting hear t rate has slowed Impression/Plan: Shireen was seen today for consultation. Paroxysmal atrial fibrillation (HCC) - Electrocardiogram, 12-lead Aortic valve insufficiency, etiology of cardiac valve disease unspecified - Echo cardiac adult complete; Future 1) Atrial fibrillation - Ms. Posey underwent hip surgery in June 2018 and atrial fi brillation was noted postoperatively. She was treated medically by report and ultimately co nverted to sinus rhythm prior to discharge. She was then seen by cardiology and placed on a nticoagulation with warfarin. She was also started on Lopressor and is now currently taking 50 mg twice a day. Her echocardiogram in 2016 demonstrated normal left ventricular functio n. She worn event monitor for 26 days recently and episodes of atrial fibrillation were not ed with an overall burden of 0.85%. The longest episode lasted around 3 hours with an avera ge heart rate of 128 bpm in atrial fibrillation. She recorded symptoms at the time of sinus rhythm and once during an episode of atrial fibrillation but for the most part she has not noted any palpitations and has had no limitations on her activity level. We discussed treat ment options for paroxysmal atrial fibrillation. Given minimal symptoms anticoagulation is recommended given risk factors. We discussed potentially adding an antiarrhythmic medicatio n or potentially performing pulmonary vein isolation but these interventions are usually res erved for patients with symptoms related to atrial fibrillation or her wish to achieve a rhy thm controlling strategy. 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 I have r ecommended a follow-up echocardiogram to reevaluate her ventricular function and chamber siz es and exclude any significant progression of her valvular heart disease. If her atrial fib rillation burden increases or symptoms develop we could consider the addition of an antiarrh ythmic medication. She is aware of the association of her lung disease with atrial dysrhyth mias. 2) Aortic regurgitation - She was noted to have moderate aortic insufficiency on her echoca rdiogram in 2017. I have recommended a follow-up echocardiogram prior to her next visit wit cardiology in [place]. This encounter was dictated with voice recognition software and may contain inadvertent rec ognition errors. Electronically signed by: Maksim [place] this encounter Plan of Treatment +--------+---------+ + + + | Date | Type | Specialty | Care Team | Description | +--------+---------+ + + + | 02/04/ | Office | Cardiology | Nannette Morrison, | | | 2018 | Visit | | MD Angela Avalos | | | | | | Dr [place], | | | | | | [place] [address] | | | | | | [phone] | | | | | | | | +--------+---------+ + + + | 05/19/ | Office | Pulmonology | Sukhjinder, | | | 2018 | Visit | | Windy Aldrich, | | | | | | MD [address] | | | | | | [place] [address] | | | | | | [phone] | | | | | | | | +--------+---------+ + + + + +--------+ + + | Name | Priori | Associated Diagnoses | Order Schedule | | | ty | | | + +--------+ + + | Echo cardiac adult complete | Routin | Aortic valve | Expected: | | | e | insufficiency, | 11/17/2018, Expires: | | | | etiology of cardiac | 11/18/2019 | | | | valve disease | | | | | unspecified | | + +--------+ + + as of this encounter Procedures + +--------+ [...] section. | + +--------+ + + + in this encounter Results EKG STANDARD 12 LEAD (11/17/2018 10:35 AM) + + + + + | Component | Value | Ref Range | Performed At | + + + + + | Ventricular Rate | 56 | BPM | [facility] | + + + + + [...] | ms | [facility] | | (Bezet) | | | | + + + + + | Calculated P [place] | 63 | degrees | [facility] | + + + + + | Calculated R [place] | 31 | degrees | [facility] | + + + + + | Calculated T [place] | 54 | degrees | [facility] | + + + + + | Diagnosis | Please refer to | | [facility] EKG | | | Providers office visit | | | | | note for Providers | | | | | Interpretation.Confirmed | | | | | by [facility] [place] Read Only, | | | | | [facility] ([id number]), | | | | | brands editor Jamal Jacome | | | | | [phone]) on 11/17/2018 | | | | | 10:35:41 AM | | | + + + + + + + + + + | Performing | Address | City/State/Zipcode | Phone Number | | Organization | | | | + + + + + | [facility] | [address] | [place] [address] | | + + + + + in this encounter Visit Diagnoses + + | Diagnosis | + + | Paroxysmal atrial fibrillation (HCC) - Primary | + + | Atrial fibrillation | + + | Aortic valve insufficiency, etiology of cardiac valve disease unspecified | + +
--- OUTSIDE RECORDS SUMMARY | ~2018-11-20 | XMS | Encounter Summary ---
Demographics + + + | Address | [address] | | | [place] [address] | + + + | Home Phone | | + + + | Preferred Language | Unknown | + + + | Marital Status | | + + + | Evangelical Affiliation | 1041 | + + + | Race | Unknown | + + + | Ethnic Group | Unknown | + + + Author + + + | Author | [facility] | + + + | Organization | [facility] | + + + | Address | [...] Team Providers + +------+ + | Care Artificial Stone Setter Name | Role | Phone | + +------+ + | Mike Saucedo MD | PCP | | + +------+ + Encounter Details +--------+ + + + + | Date | Type | Department | Care Team | Description | +--------+ + + + + | 10/14/ | Telephone | [facility] [place] | Jackie Garcia MA | | | 2019 | | Cardiology [facility] | | | | | | [address] [facility] [address] | | | | | | Street [facility] [address] | | | | | | [place] [address] | | | | | | [phone] | | | +--------+ + + + [...] [place], | | | | | | [place] [address] | | | | | | [phone] | | | | | | | | +--------+---------+ + + + | 05/19/ | Office | Pulmonology | Sukhjinder, | | | 2018 | Visit | | Windy Aldrich, | | | | | | MD [address] | | | | | | [place] [address] | | | | | | [phone] | | | | | | | | +--------+---------+ + + + as of this encounter Visit Diagnoses Not on filein this encounter"
--- OUTSIDE RECORDS SUMMARY | ~2018-11-20 | XMS | Encounter Summary ---
Demographics + + + | Address | [address] | | | [place] [address] | + + + | Home Phone | | + + + | Preferred Language | Unknown | + + + | Marital Status | | + + + | Mosque Affiliation | 1041 | + + + | Race | Unknown | + + + | Ethnic Group | Unknown | + + + Author + + + | Author | [facility] | + + + | Organization | [facility] | + + + | Address | [...] Team Providers + +------+ + | Care Real Estate Investment Analyst Name | Role | Phone | + +------+ + | Alexandre Saucedo MD | PCP | | + +------+ + Reason for Referral Cardiac Electrophysiology (Routine) +--------+ + + + [...] | | | | artery | [address] | [address] | | | | | stenosis | [address] | [address] | | | | | Peripheral | [place], [place] | [place] | | | | | arterial | [address] | [address] Phone: | | | | | disease | Phone: | [phone] | | | | | (HCC) | [phone] | Fax: | | | | | Bronchiectas | Fax: | [phone] | | | | | is without | [phone] | | | | | | complication [...] | | | | | | ([facility]) | | | +--------+ + + + + + Reason for Visit + + + | Reason | Comments | + + + | Follow-up | Per Dr. Polanco needs to be seen sooner | + + + Encounter Details +--------+---------+ + + + | Date | Type | Department | Care Team | Description | +--------+---------+ + + + | 10/22/ | Office | [facility] | Nannette Polanco, | Bilateral carotid | | 2019 | Visit | Cardiology Chan | [address] | artery stenosis | | | | [address] | Dr [place], | (Primary Dx); [address] | | | | [address] | [place] [address] | (peripheral artery | | | | [place] [address] | [phone] | disease); | | | | [phone] | | Bronchiectasis | | | | | | without complication | | | | | | (HCC); ILD | | | | | | (interstitial lung | | | | | | disease) ([facility]); | | | | | | Paroxysmal atrial | | | | | | fibrillation ([facility]) | +--------+---------+ + + + Social History [...] + + + | Blood Pressure | 124/68 | 10/22/2018 8:43 AM PDT | + + + + | Pulse | 62 | 10/22/2018 8:43 AM PDT | + + + + | Temperature | - | - | + + + + | Respiratory Rate | - | - | + + + + | Oxygen Saturation | 98% | 10/22/2018 8:43 AM PDT | + + + + | Inhaled Oxygen | - | - | | Concentration | | | + + + + | Weight | 59.2 kg (130 lb 8 | 10/22/2018 8:43 AM PDT | | | oz) | | + + + + | Height | 165.1 cm (5' 5") | 10/22/2018 8:43 AM PDT | + + + + | Body Mass Index | 21.72 | 10/22/2018 8:43 AM PDT | + + + + in this encounter Progress Notes Nannette Polanco MD - 10/22/2018 8:45 AM PDTFormatting of this note may be different fro m the original. Date of visit: 10/22/2018 Primary Care Physician: ALEXANDRE SAUCEDO CHIEF COMPLAINT: Chief Complaint Patient presents with Follow-up Per Dr. Polanco needs to be seen sooner HISTORY OF PRESENT ILLNESS: Shireen is 78 y.o. here for for follow up visit. Complex past medical history and present ation. Presented to follow-up on event monitor. Patient denies any chest pain or shortness of breath. Increased tiredness with metoprolol. Was hospitalized in Jun 2018 for fractured hip that required surgery. Post op, had an epis ode of atrial fibrillation with rapid ventricular response. Was started on Diltiazem, converted to sinus rhythm after about 12 hours. Has chronic obstructive pulmonary disease follows up with pulmonology. She has lower extremity edema however only in the right side. Usually wears stocking which helps. Blood pressure has been controlled. Used to follow-up with Dr. Talbert secondary to rheumatic heart disease and moderate aortic re gurgitation. Past medical history, SH, FH, and medications were reviewed in the chart. Medications: Outpatient Encounter Prescriptions as of 10/22/2018 Medication Sig Dispense Refill albuterol (PROVENTIL) (2.5 [...] by mouth daily. 30 tablet 11 No facility-administered encounter medications on file as of 10/22/2018. Allergies Allergies Allergen Reactions Alendronate Other (See Comments) Ciprofloxacin GI Distress and Other (See Comments) Flunisolide Other (See Comments) Cannot remember Levaquin [Levofloxacin] Other (See Comments) Increased heart rate, weakness Lisinopril Other (See Comments) REVIEW OF SYSTEMS: Constitutional: Positive for fatigue mostly in midday. No fever, chills, and rigors. No re port of weight change. HEENT: Negative for nosebleeds, ear discharge, nasal congestion or soar throat. Eyes: Negative for visual disturbance, redness, or secretion. Respiratory: Intermittent cough, no wheezing or hemoptysis. Cardiovascular: As history of present illness. Gastrointestinal: Negative for nausea, vomiting, diarrhea, abdominal pain and blood in stoo l. Genitourinary: Negative for dysuria or hematuria. Musculoskeletal: Arthritic pain, recent hop fracture. Skin: Negative for rash. Neurological: Negative for dizziness. No numbness. No recent falls. No slurred speech. Hematological: No significant bruising. Psychiatric/Behavioral: No depression or anxiety. PHYSICAL EXAM Vital Signs: BP 124/68 (BP Location: Left upper arm, Patient Position: Sitting) | Pulse 62 | Ht 1.651 m (5' 5") | Wt 59.2 kg (130 lb 8 oz) | SpO2 98% | BMI 21.72 kg/m GENERAL APPEARANCE: Alert, oriented, cooperative, no distress, appears stated age. HEENT: Extraocular movements were intact. No jaundice. Pupiles round and reactive. NECK: No JVD, lymphadenopathy. Carotid upstrokes normal. No carotid bruit heard. CARDIAC: Regular rhythm and rate. There is normal S1 and S2. Systolic and diastolic murmur in the left lower sternal border. CHEST: Bilateral minimal expiratory wheezing with minimal crackles. ABDOMEN: Soft.No tenderness or guarding. No palpable organs. Active bowel sounds. EXTREMITIES: Lower extremity edema only in the right leg. NEURO: Alert and oriented times three with no focal deficit. Cranial nerves are grossly no rmal. SKIN: Warm and dry. No rash. Psych: Normal affect and mood. DATA Lab Results Component Value Date/Time NA 142 09/14/2015 10:09 AM NA 139 02/04/2015 07:17 AM K 4.2 09/14/2015 10:09 AM K 4.0 02/04/2015 07:17 AM CO2 28 09/14/2015 10:09 AM CO2 27 02/04/2015 07:17 AM BUN 16 09/14/2015 10:09 AM BUN 14 02/04/2015 07:17 AM CREATININE 0.64 (A) 09/14/2015 10:09 AM CREATININE 0.69 (A) 02/04/2015 07:17 AM Lab Results Component Value Date/Time WBC 9.3 02/04/2015 07:17 AM HGB 13.1 02/04/2015 07:17 AM HCT 38.9 02/04/2015 07:17 AM MCV 92.0 02/04/2015 07:17 AM PLT 292 02/04/2015 07:17 AM Lab Results Component Value Date CHOL 148 02/04/2015 TRIG 79 02/04/2015 HDL 38.4 (A) 02/04/2015 LDL 94 02/04/2015 GLUF 75 09/14/2015 GLUF 84 02/04/2015 EC08/27/2017 Ordered and reviewed by myself showed sinus rhythm, normal EKG. 11/29/2017 Last Echo: 07/16/2108 Reported from [place]: normal LV size and function EF 70%. Grade I diastolic dysfunction. Mild to moderate AI. Mild TR with mild PHTN RVSP 45 mmHg. 2016: Normal LV size EF 65-70%. Mild diastolic dysfunction (grade 1). RV normal in size and fun ction. Mild left atrial enlargement. Moderate AR. Mild calcified aortic valve. Mild MR, stable. Mild to moderate TR, stable. Echo: 02/14/2016: LV dimensions NML, LVEF 65-70%, moderate LAE, calcified nodule on left coronary cusp, moder ate AI, mild MR, mild TR, trace PI, PAP 27-32mmHg. mild diastolic dysfunction Last Stress test: Last Cath: Last carotid US, 02/18/2015: Mild disease lazara <50% reduction bilateral internal carotid arteries. Antegrade flow within bilateral vertebral arteries. Event Monitor 09/18/2018 1. Average heart rate was 71 bpm, minimum heart rate 48 bpm and maximum heart rate 117 bpm. 2. Arrhythmia was noted as paroxysmal atrial fibrillation with rapid ventricular response, longest episode was 3 hours and 15 minutes. 3. Rare premature ventricular contractions. ASSESSMENT: Patient is 78 y.o. with the following medical problems: 1. Paroxysmal atrial fibrillation, CHADSVASc of 2-3. 2. Rheumatic heart disease. 3. Moderate aortic regurgitation with no sign of congestive heart failure. 4. Chronic obstructive pulmonary disease follows up with Dr. Richard. 5. Arthritic pain. 6. Mild pulmonary hypertension. Recommendations: Decision making is challenging in the view of valvular disease and advanced chronic obstruc tive pulmonary disease. Viewed the event monitor with the patient. Has no signs of congestive heart failure. Blood pressures controlled. Weight has been stabl e. Amiodarone will be challenging in the view of interstitial lung disease. Class Ic diarrheal medics are considered however patient is complaining of increased fatigu e on metoprolol. Continue with anticoagulation, stop aspirin Electrophysiology evaluation will be requested. Will continue to monitor symptomology. We will call with any change in symptoms. *This report has been prepared using a voice recognition system. The report was reviewed fo r accuracy, however, sound-alike word errors, addition and/or deletions may occur. If there is any question about this report please contact me. Nannette Polanco MD, MPHin this encounter Plan of Treatment +--------+---------+ + + + | Date | Type | Specialty | Care Team | Description | +--------+---------+ + + + | 02/04/ | Office | Cardiology | Nannette Polanco, | | | 2019 | Visit | | MD [address] | | | | | | Dr [place], | | | | | | [place] [address] | | | | | | [phone] | | | | | | | | +--------+---------+ + + + | 05/19/ | Office | Pulmonology | [facility], | | | 2018 | Visit | | Windy Aldrich, | | | | | | MD [address] | | | | | | [place] [address] | | | | | | [phone] | | | | | | | | +--------+---------+ + + + + +--------+ + + | Name | Priori | Associated Diagnoses | Order Schedule | | | ty | | | + +--------+ + + | Ambulatory referral to Cardiac | Routin | Bilateral carotid | Ordered: 10/22/2018 | | Electrophysiology | e | artery stenosis PAD | | | | | (peripheral artery | | | | | disease) | | | | | Bronchiectasis | | | | | without complication | | | | | ([facility]) ILD | | | | | (interstitial lung | | | | | disease) ([facility]) | | | | | Paroxysmal atrial | | | | | fibrillation ([facility]) | | + +--------+ + + as of this encounter Visit Diagnoses + + | Diagnosis | + + | Bilateral carotid artery stenosis - Primary | + + | Occlusion and stenosis of carotid artery without mention of cerebral infarction | + + | PAD (peripheral artery disease) | + + | Unspecified disorders of arteries and arterioles | + + | Bronchiectasis without complication (HCC) | + + | Bronchiectasis without acute exacerbation | + + | ILD (interstitial lung disease) (HCC) | + + | Postinflammatory pulmonary fibrosis | + + | Paroxysmal atrial fibrillation (HCC) | + + | Atrial fibrillation | + +
--- OUTSIDE RECORDS SUMMARY | ~2018-11-20 | XMS | Encounter Summary ---
Demographics + + + | Address | [address] | | | [place] [address] | + + + | Home Phone | | + + + | Preferred Language | Unknown | + + + | Marital Status | | + + + | Latter Day Affiliation | 1041 | + + + | Race | Unknown | + + + | Ethnic Group | Unknown | + + + Author + + + | Author | [employer] | + + + | Organization | [facility] [employer] | + + + | Address | [...] Team Providers + +------+ + | Care Wood Window And Door Craftsman Name | Role | Phone | + +------+ + | Mike Saucedo MD | PCP | | + +------+ + Reason for Visit + + + | Reason | Comments | + + + | Follow-up | CT scan | + + + Encounter Details +--------+---------+ + + + | Date | Type | Department | Care Team | Description | +--------+---------+ + + + | 11/17/ | Office | [facility] | Sukhjinder, | Bronchiectasis | | 2019 | Visit | Pulmonology [address] | Windy Aldrich, | without complication | | | | [address] | [address] | ([facility]) (Primary Dx); | | | | [place], [place] | [place] [address] | Mild airflow | | | | [address] | [phone] | obstruction on | | | | [phone] | | pulmonary function | | | | | | test; ILD | | | | | | (interstitial lung | | | | | | disease) ([facility]); | | | | | | Multiple pulmonary | | | | | | nodules; Atypical | | | | | | mycobacterial | | | | | | infection of lung | | | | | | ([facility]); Personal | | | | | | [...] encounter Progress Notes Windy Slaughter MD - 11/17/2018 11:30 AM PDTFormatting of this note may be dif ferent from the original. Subjective: Patient ID: Shireen Posey is a 78 y.o. female with known valvular heart disease [...] will be seeing a new provider in [place] soon. She denies jonathan st pains, but [...] and sinus drainage. Interval History Narrative/Comments: She has done well without acute exacerbation or worsening of her breat arturo. She does complain that she sometimes feels fatigued and feels that her legs become wea k when walking for a long period of time. The patient reports the following: DYSPNEA: On moderate exertion. Can do all chores at home without difficulty or dyspnea. Get s winded only with climbing an incline. COUGH: Chronic, daily with clear to yellow sputum. Denies hemoptysis. Sputum production h as gone down. ACUTE EXACERBATION: None EXPOSURES: Former smoker EXERCISE: No formal exercise but is active at home. ACTIVITIES OF DAILY LIVING: Independent and without difficulty. CONSTITUTIONAL SYMPTOMS: Denies fevers, chills or night sweats. Has had some weight loss, a nd is gaining back some of the weight. SINO-NASAL SYMPTOMS: Denies allergy s/s. REFLUX or REGURGITATION: Has had reflux and gastroparesis. Now complaining of a persisten t epigastric pain. SLEEP: Has been sleeping well. Sleeps on a recliner to help with her aches and pains. CHEST PAINS: None ORTHOPNEA OR PND (Paroxysmal Nocturnal Dyspnea): None PEDAL EDEMA: Chronic, more often later in the day. L more than the R OTHER SYMPTOMS: Arthralgias Inhaler regimen includes: Albuterol nebulization BID, Incruse Ellipta daily. Also has valentino pella valve for mucus clearance. Oxygen Use: None PAP therapy: None Other relevant medications: None SOCIAL HISTORY She is a past smoker, stopped 10 years ago, smoked about 1/2 to a pack a day for the past 5 0 years. 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 Moderate aortic regurgitation 01/29/2018 Rheumatic heart disease 01/29/2018 Gastro-esophageal reflux disease with esophagitis 03/20/2018 Closed fracture of hip (HCC) 07/12/2018 Paroxysmal atrial fibrillation (HCC) 08/27/2018 Resolved Ambulatory Problems Diagnosis Date Noted VHD (valvular heart disease) 02/03/2015 Carotid artery disease (HCC) 01/29/2018 Past Medical History: Diagnosis Date Aortic regurgitation Atrial fibrillation (HCC) Bilateral claudication of lower limb (HCC) Bronchiectasis (HCC) CAD (coronary artery disease) Carotid stenosis Chronic sinusitis COPD (chronic obstructive pulmonary disease) [...] UNLISTED PROCEDURE ARTHROSCOPY UPPER GASTROINTESTINAL ENDOSCOPY 2010 Objective: Physical Exam BP 121/50 (BP Location: Left upper arm, Patient Position: Sitting) | Pulse 51 | Temp 97.1 F (36.2 C) (Oral) | Ht 1.651 m (5' 5") | Wt 61.2 kg (135 lb) | SpO2 99% | BMI 22.47 kg/m Vital signs reviewed. Oxygen saturation noted [...] MAC, mild MR. Tricuspid and Pulmonic valves rmoaine sly NML, mild TR, trace PI. 3. LV dimensions NML (LVEDd 47mm, LVESd 30mm), systolic function NML, Grade 1 diastolic abnormality, [place] visually estimates LVEF 65-70%. Moderate LAE. RA/RV [...] adjacent scarring. 2 mm ALEXANDRA nodule -stable. Assessment and Plan: 1. Bronchiectasis without complication [...] February did not show evidence of DOMI. Her cough and phlegm have improved, and so she has been unable to submit more sputum sample s for us. We will continue with albuterol nebulization BID to help with mucus clearance and pulmonary hygiene. Exercise was encouraged today. 2. Mild airflow obstruction on pulmonary function test She manifests with mild airflow obstruction most likely secondary to her underlying bronchi ectasis and centrilobular emphysema. She will continue with Incruse Ellipta once a day. Lung function has improved this year, especially her air trapping. 3. ILD (interstitial lung disease) (HCC) She has subtle interstitial changes on the bases of her lungs, which I think is from past a spiration episodes. She thought that she had IPF, which her sister had, but based on her his tory, this is less likely. Repeat imaging this May 2018 showed stable infiltrates on the bas es. 4. Multiple pulmonary nodules She has small multiple pulm nodules that need to be followed given risk for pulmonary malig sasha (was a smoker). Repeat CT this May 2018 have been stable, and this is reassuring. 5. Atypical mycobacterial infection of lung (HCC) Has not had any repeat isolation of DOMI. This is reassuring. Continue to be vigilant about signs of chronic infection. 6. Personal history of tobacco use, presenting hazards to health She has stopped smoking about 10 years ago. Continue to be vigilant about signs of pulmonar y malignancy. Last CT in May has been stable, and this is reassuring. e followed. If not any larger this year, we no longer have to repeat CT again unless with s /s. Thank you for allowing us to participate in this patient's care. A return visit has been re quested/scheduled in 6 months for routine follow up. The patient was instructed to call our clinic for any questions, and for any concerns regarding worsening dyspnea, cough or change in sputum production. We will see the patient sooner than the recommended follow up date, if with any worsening of symptoms. Windy Slaughter MD Pulmonary and Critical Care Medicine [facility] [address], [place] [address] in this encounter Plan of Treatment +--------+---------+ + + + | Date | Type | Specialty | Care Team | Description | +--------+---------+ + + + | 02/04/ | Office | Cardiology | Nannette Morrison, | | | 2018 | Visit | | [address] | | | | | | Dr [place], | | | | | | [place] [address] | | | | | | [phone] | | | | | | | | +--------+---------+ + + + | 05/19/ | Office | Pulmonology | Sukhjinder, | | | 2018 | Visit | | Windy Aldrich, | | | | | | [address] | | | | | | [place] [address] | | | | | | [phone] | | | | | | | [...] Postinflammatory pulmonary fibrosis | + + | Multiple pulmonary nodules | + + | Other nonspecific abnormal finding of lung field | + + | Atypical mycobacterial infection of lung (HCC) | + + | Pulmonary diseases due to other mycobacteria | + + | Personal history of tobacco use, presenting hazards to health | + +
--- OUTSIDE RECORDS SUMMARY | ~2018-11-20 | XMS | Encounter Summary ---
Demographics + + + | Address | [address] | | | [place] [address] | + + + | Home Phone | | + + + | Preferred Language | Unknown | + + + | Marital Status | | + + + | Quaker Affiliation | 1041 | + + + | Race | Unknown | + + + | Ethnic Group | Unknown | + + + Author + + + | Author | [employer] | + + + | Organization | [facility] [employer] | + + + | Address | [...] Providers + +------+ + | Care Director Investment Banking Name | Role | Phone | + [...] Description | +--------+--------+ + + + | 10/07/ | Refill | [facility] | Evelyn Kingston, | Bronchiectasis | | 2018 | | 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 | | | | [address] | | ([facility]); Chronic | | | | [place], [place] | | obstructive | | | | [address] | | pulmonary disease, | | | | [phone] | | unspecified COPD | | | | | | type ([facility]) | +--------+--------+ + + + Social History + +-------+ [...] [place], | | | | | | [place] [address] | | | | | | [phone] | | | | | | | | +--------+---------+ + + + | 05/19/ | Office | Pulmonology | Sukhjinder, | | | 2019 | Visit | | Windy Aldrich, | | | | | | MD [address] | | | | | | [place] [address] | | | | | | [phone] | | | | | | | | +--------+---------+ + + + as of this encounter Visit Diagnoses + + | Diagnosis | + + | Bronchiectasis without complication (HCC) | + + | Bronchiectasis without acute exacerbation | + + | Chronic obstructive pulmonary disease, unspecified COPD type (HCC) | + +"
--- OUTSIDE RECORDS SUMMARY | ~2018-11-20 | XMS | Encounter Summary ---
Demographics + + + | Address | [address] | | | [place] [address] | + + + | Home Phone | | + + + | Preferred Language | Unknown | + + + | Marital Status | | + + + | Presybeterian Affiliation | 1041 | + + + [...] Team Providers + +------+ + | Care Book Or Script Editor Name | Role | Phone | + +------+ + | Mike Saucedo MD | PCP | | + +------+ + Encounter Details +--------+ + + + + | Date | Type | Department | Care Team | Description | +--------+ + + + + | 10/02/ | Hospital | [facility] | Abdi Wallace | Right hip pain; | | 2018 | Encounter | [facility] | MD [address] [facility] | Status post hip | | | | [address] [place] | [place], [place] | surgery | | | | [place], [place] | [address] | | | | | [address] | | | | | | [phone] | | | +--------+ + + + [...] tablets by | 120 | 0 | 07/17/ | | | (TYLENOL) 325 mg | [...] the lungs Daily. | | | | | | 62.5 mcg/puff | | | [...] | | VIEWS | e | 11:01 PDT | Status post hip | procedure are in the | | | | | surgery | results section. | + [...] Note | + + | Mookie Garcia Results In - 10/02/2018 1118 PDT EXAM:XR [...]
--- OUTSIDE RECORDS SUMMARY | ~2018-11-20 | XMS | Encounter Summary ---
Demographics + + + | Address | [address] | | | [place] [address] | + + + | Home Phone | | + + + | Preferred Language | Unknown | + + + | Marital Status | | + + + | Amish Affiliation | 1041 | + + + | Race | Unknown | + + + | Ethnic Group | Unknown | + + + Author + + + | Author | [employer] | + + + | Organization | [facility] | + + + | Address | [...] Team Providers + +------+ + | Care Human Resource Professional Name | Role | Phone | + [...] | | | | | Peripheral | [place], [place] | [place] | | | | | arterial | [address] | [address] Phone: | | | | | disease | Phone: | [phone] | | | | | (HCC) | [phone] | Fax: | | | | | Bronchiectas | Fax: | [phone] | | | | | is without | [phone] | | | | | | complication [...] | | | | | | | ([facility]) | | | +--------+ + + [...] + + | 10/22/ | Office | [facility] | Nannette Polanco, | Bilateral carotid | | 2019 | Visit | Cardiology Chan | [address] | artery stenosis | | | | [address] | [address] [place], | (Primary Dx); [address] | | | | [address] | [place] [address] | (peripheral artery | | | | [place] [address] | [phone] | disease); | | | | [phone] | | Bronchiectasis | | | | | | without complication | | | | | | (HCC); ILD | | | | | | (interstitial lung | | | | | | disease) ([facility]); | | | | | | Paroxysmal atrial | | | | | | fibrillation ([facility]) | +--------+---------+ + + + Social History [...] EKG. 11/29/2017 Last Echo: 07/16/2108 Reported from [facility]: normal LV size and function EF 70%. [...] [place], | | | | | | [place] [address] | | | | | | [phone] | | | | | | | | +--------+---------+ + + + | 05/19/ | Office | Pulmonology | [facility], | | | 2018 | Visit | | Windy Aldrich, | | | | | | MD [address] | | | | | | [place] [address] | | | | | | [phone] | | | | | | | [...] without complication | | | | | ([facility]) ILD | | | | | (interstitial lung | | | | | disease) ([facility]) | | | | | Paroxysmal atrial | | | | | fibrillation ([facility]) | | + +--------+ + + as [...]
--- OUTSIDE RECORDS SUMMARY | ~2018-11-20 | XMS | Encounter Summary ---
Demographics + + + | Address | [address] | | | [place] [address] | + + + | Home Phone | | + + + | Preferred Language | Unknown | + + + | Marital Status | | + + + | Presybeterian Affiliation | 1041 | + + + | Race | Unknown | + + + | Ethnic Group | Unknown | + + + Author + + + | Author | [employer] | + + + | Organization | [facility] [employer] | + + + | Address | [...] Team Providers + +------+ + | Care Radio Journalist Name | Role | Phone | + +------+ + | Mike Saucedo MD | PCP | | + +------+ + Reason for Referral Consultation (Routine) + + + + + + + | Status | Reason | Specialty | Diagnoses / | Referred By | Referred To | | | | | Procedures | Contact | Contact | + + + + + + + | Authorized | Specialty | Anticoagulati | Diagnoses | [facility], | [facility], | | | Services | on | Paroxysmal | MD Nannette | [address] | | | Required | | atrial | [address] | | | | | fibrillation | [address] | ARABELLA CHRISTINE | | | | | ([facility]) | [address] [address] | [place] | | | | | | [place], [place] | [address] | | | | | | [address] | Phone: | | | | | | Phone: | [phone] | | | | | | [phone] | Fax: | | | | | | Fax: | [phone] | | | | | | [phone] | | + + + + + + + Encounter Details +--------+ + + + + | Date | Type | Department | Care Team | Description | +--------+ + + + + | 10/17/ | Orders Only | LATANYA Hart | Tamiko, Nannette, | Paroxysmal atrial | | 2019 | | Cardiology Anderson | MD [address] | fibrillation (HCC) | | | | [address] | [address] [place], | (Primary Dx) | | | | [address] | [place] [address] | | | | | [place] [address] | [phone] | | | | | [phone] | | | +--------+ + + + [...] | 02/04/ | Office | Cardiology | Wicho Morrisonkira, | | | 2018 | Visit | | [address] | | | | | | Dr [place], | | | | | | [place] [address] | | | | | | [phone] | | | | | | | | +--------+---------+ + + + | 05/19/ | Office | Pulmonology | Sukhjinder, | | | 2018 | Visit | | Windy Aldrich, | | | | | | [address] | | | | | | [place] [address] | | | | | | [phone] | | | | | | | | +--------+---------+ + + + + +--------+ + + | Name | Priori | Associated Diagnoses | Order Schedule | | | ty | | | + +--------+ + + | Ambulatory Referral to | Routin | Paroxysmal atrial | Ordered: 10/17/2018 | | Anticoagulation Monitoring | e | fibrillation (HCC) | | + +--------+ + + as of this encounter Visit Diagnoses + + | Diagnosis | + + | Paroxysmal atrial fibrillation (HCC) - Primary | + + | Atrial fibrillation | + +"
--- OUTSIDE RECORDS SUMMARY | ~2018-11-20 | XMS | Encounter Summary ---
Demographics + + + | Address | [address] | | | [place] [address] | + + + | Home Phone | | + + + | Preferred Language | Unknown | + + + | Marital Status | | + + + | Tenriism Affiliation | 1041 | + + + | Race | Unknown | + + + | Ethnic Group | Unknown | + + + Author + + + | Author | [employer] [facility] [employer] | + + + | Organization | [facility] | + + + | Address | [...] Team Providers + +------+ + | Care Light Industrial Supervisor Name | Role | Phone | [...] + | 09/18/ | Documentati | [facility] [place] | Nannette Morrison, | Cardiac Event | | 2019 | on Only | Cardiology Chan | [address] | Monitor (30 day) | | | | [address] | [address] [place], | | | | | [place] [address] | [place] [address] | | | | | [place] [address] | [phone] | | | | | [phone] | | | | | | | [...] Garcia MA - 09/18/2018 3:30 PM day property assessment monitor placed on patient. EOB/B illing information discussed. [...] [place], | | | | | | [place] [address] | | | | | | [phone] | | | | | | | | +--------+---------+ + + + | 05/19/ | Office | Pulmonology | Sukhjinder, | | | 2018 | Visit | | Windy Aldrich, | | | | | | MD [address] | | | | | | [place] [address] | | | | | | [phone] | | | | | | | | +--------+---------+ + + + as of this encounter Visit Diagnoses + + | Diagnosis | + + | Paroxysmal atrial fibrillation (HCC) | + + | Atrial fibrillation | + + | Chronic obstructive pulmonary disease, unspecified COPD type (HCC) | + +"
--- OUTSIDE RECORDS SUMMARY | ~2018-11-20 | XMS | Clinical Summary ---
Demographics + + + | Address | [address] | | | [place] [address] | + + + | Home Phone | | + + + | Preferred Language | Unknown | + + + | Marital Status | | + + + | Restorationist Affiliation | 1041 | + + + | Race | Unknown | + + + | Ethnic Group | Unknown | + + + Author + + + | Author | [employer] | + + + | Organization | [facility] | + + + | Address | [...] Team Providers + +------+ + | Care Sociology Adjunct Instructor Name | Role | Phone | [...] | | | | | | | ([facility]), Mild airflow | | | | | [...] | | | | | | | ([facility]), Chronic | | | | | | | | obstructive | | | | | | | | pulmonary disease, | | | | | | | | unspecified COPD | | | | | | | | type ([facility]) | | | | | | | [...] + | 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 | + + + + + [...] she and Yuri sold their home in [place], | | she is busy doing yardwork and packing, most likely will be | | spending the winter in the [facility]. Tolerating | | medications. No changes in [...] | | | | | MD | ([facility]) (Primary Dx); | | | | | | Mild airflow | | | | | | obstruction on | | | | | | pulmonary function | | | | | | test; ILD | | | | | | (interstitial lung | | | | | | disease) ([facility]); | | | | | | Multiple pulmonary | | | | | | nodules; Atypical | | | | | | mycobacterial | | | | | | infection of lung | | | | | | ([facility]); Personal | | | | | | history of tobacco | | | | | | use, presenting | | | | | | hazards to health | +--------+ + + + + | 11/17/ | Initial | | Maksim Mckenzie | Paroxysmal atrial | | 2019 | consult | | MD Colten | fibrillation ([facility]) | | | | | | (Primary [...] complication | | | | | | ([facility]); ILD | | | | | | (interstitial lung | | | | | | disease) ([facility]); | | | | | | Paroxysmal atrial | | | | | | fibrillation ([facility]) | +--------+ + + + + | 10/17/ | Orders Only | | Nannette Morrison, | Paroxysmal atrial | | 2019 | | | MD | fibrillation ([facility]) | | | | | | (Primary Dx) | +--------+ + + + + | 10/14/ | Telephone | | Jackie Garcia MA | | | 2018 | | | | | +--------+ + + + + | 10/07/ | Refill | | Evelyn Kingston, | Bronchiectasis | | 2019 | | | DIESEL ENGINE TESTER | without complication | | | | | | ([facility]); Chronic | | | | | | obstructive | | | | | | pulmonary disease, | | | | | | unspecified COPD | | | | | | type ([facility]) | +--------+ + + + + | [...] | | | | | | fibrillation ([facility]); | | | | | | Chronic obstructive | | | | | | pulmonary disease, | | | | | | unspecified COPD | | | | | | type ([facility]); | | | | | | Centrilobular | | | | | | emphysema ([facility]) | +--------+ + + + + | [...] + + | Father | | | DC | | | | (Age | | [...] | | | | | | [place] [address] | | | | | | [phone] | | | | | | | | +--------+---------+ + + + | 05/19/ | Office | | Sukhjinder, | | | 2018 | Visit | | Windy Aldrich | | | | | | MD [address] | | | | | | [place] [address] | | | | | | [phone] | | | | | | | [...] + + + + | Calculated P Ivanhoe | 63 | degrees | [facility] EKG | + + + + + | Calculated R Ivanhoe | 31 | degrees | [facility] EKG | + + + + + | Calculated T Ivanhoe | 54 | degrees | [facility] EKG | + + + + + | Diagnosis | Please refer to | | [facility] EKG | | | Providers office visit | | | | | note for Providers | | | | | Interpretation.Confirmed | | | | | by [facility] Callao Read Only, | | | | | LOUISA Avalos ([id number]), | | | | | research editor Jamal Jacome | | | | | ([id number]) on 11/17/2018 | | | | | 10:35:41 AM | | | + + + + + + + + + + | Performing | Address | City/State/Zipcode | Phone Number | | Organization | | | | + + + + + | [facility] | [address] | [place] [address] | | + + + + + [...] +------+-------+ + | MEDICARE | MEDICA | [id number] | | | [address] | | | RE | | | | [place] [address] | | | IP-OP | | | | | + +--------+ +------+-------+ + | COMMERCIAL OTHER | COMMER | [id number] | | | | | | CIAL [...] Self | [birth year] | Home: | [address] | | | al/Fam | | 1940 | [phone] [place] | | | zayda | | [phone] | [address] | + +--------+ +--------+ + +
--- OUTSIDE RECORDS SUMMARY | ~2018-11-20 | XMS | Clinical Summary ---
Demographics + + + | Address | [address] | | | [place] [address] | + + + | Home Phone [...] Providers + +------+ + | Care Informatics Scientist Name | Role | Phone | + [...] every 4 hours | tablet | | /20 | | e | | tablet | as needed for Pain | | | 18 | | | | | (or fever >= 38.6 C | | | | | | | | (101.5 F)). | | | | | | + + + +---------+------+------+-------+ | umeclidinium | Inhale 1 puff into | | 0 | | | Activ | | (INCRUSE ELLIPTA) | the lungs Daily. | | | | | e | | 62.5 mcg/puff | | | | | | | | inhaler | | | | | | | [...] + + | Basal cell carcinoma of yakov | 02/06/2015 | + + + + + | Overview: Last Assessment & Plan: | | Basal Cell CA, right yakov, 2013. 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 | + + + + + | [...] +---+ + + | Overview: carotid US 2010 50-69% mid L ICA stenosis | + + + +---+ | Osteopenia | | + +---+ Encounters +--------+ + + + + | Date | Type | Specialty | Care Team | Description | +--------+ + + + + | 10/02/ | Hospital | | Abdi Wallace | Right hip pain; | | 2018 | Encounter | | MD Casandra | Status post hip | | | | | | surgery | +--------+ + + + + | 10/02/ | Office | | Matti Magallanes | S/P orthopedic | | 2018 | Visit | | GIL Penny | surgery, follow-up | | | | | | exam (Primary Dx); | | | | | | Weakness of right | | | | | | hip | +--------+ + + + + | 10/02/ | Orders Only | | Matti Magallanes | Weakness of right | | 2018 | | | GIL Penny | hip (Primary Dx); | | | | | | S/P orthopedic | | | | | | surgery, follow-up | | | | | | exam | +--------+ + + + + | 09/24/ | Orders Only | | Abdi Wallace | Right hip pain | | 2019 | | | MD Casandra | (Primary Dx); Status | | | | | | post hip surgery | +--------+ + + + + from [...] | | TRIVALENT(PED/ADOL/A | | | | THERON BOWEN | | | + + + + | INFLUENZA, [id number], | 10/25/2009 | | | UNSPECIFIED | [...] fracture | + + +------+ + | Colon [...] + + | Father | | | [place] | | | | (Age | | [...] + | Blood Pressure | 119/56 | 07/17/2018755 PST | + + + + | Pulse | 70 | 07/17/20181025 PST | + + + + | Temperature | 37 C (98.6 F) | 07/17/2018755 PST | + + + + | Respiratory Rate | 16 | 07/17/20186 PST | + + + + | Oxygen Saturation | 98% | 07/17/2018 1026 PST | + + + + | [...] 10/02/20181111 PDT | + + + + Plan [...] | | 08/21/ | 00-111 | | [id number]: Qty: 2 | c | Femur | ZIMM | | 2 | 2-140- | | on 07/13/2018 by Rodrigo, | | | | | | 01 / | | Abdi Guajardo MD | | | | | | /[id number] | | | | | | | | 592 | + +--------+--------+ +--------+--------+--------+ | Imp Hip Stem Cntrlzr 9mm - | Generi | Right: | JJHCS DEPUY | | 12/19/ | 1376-4 | | [id number]: Qty: 1 | c | Femur | ORTHO - | | 2020 | 7-000 | | on 07/13/2018 by Rodrigo, | | | DEPU | | | / | | Abdi Guajardo MD | | | | | | /[id number] | | | | | | | | 2 | + +--------+--------+ +--------+--------+--------+ | Imp Hip Stem Bplr Slfctr | Generi | Right: | JJHCS DEPUY | | 02/18/ | 1035-4 | | 49x28 - [id number]: | c | | ORTHO - | | 3 | 9-000 | | Qty: 1 on 07/13/2018 by | | Acetab | DEPU | | | / | | Abdi Wallace MD | | ulum | | | | /[id number] | | | | | | | | 5 | + +--------+--------+ +--------+--------+--------+ | Imp Hip Fem Stem Sumt Sz3 - | Generi | Right: | JJHCS DEPUY | | 05/21/ | 1570-1 | | [id number]: Qty: 1 | c | Femur | ORTHO - | | 2021 | 3-090 | | on 07/13/2018 by Rodrigo, | | | DEPU | | | / | | Abdi Guajardo MD | | | | | | /[id number] | | | | | | | | 0194 | + +--------+--------+ +--------+--------+--------+ | Imp Hip Fem Hd Artc 28 | Generi | Right: | JJHCS DEPUY | | 12/19/ | 1365-1 | | [id number] - | c | Femur | ORTHO - | | 3 | 1-000 | | [id number]: Qty: 1 | | | DEPU | | | / | | on 07/13/2018 by Rodrigo, | | | | | | /[id number] | | Abdi Guajardo MD | | | | | | 2214 | + +--------+--------+ +--------+--------+--------+ Procedures + +--------+ + + + | [...] section. | + +--------+ + + + from Last 3 Months Results XR Hip Right 2-3 Views (10/02/2018 [...] | Jose, Rad Results In - 10/02/2018 1118 PDT EXAM:XR [...] | | | + +---------+ + + from Last 3 Months Insurance + +--------+ +--------+ +---------+--------+ | Payer | Benefi | Subscriber | Effect | Phone | Address | Type | | | t Plan | ID | silke | | | | | | / | | Dates | | | | | | Group | | | | | | + +--------+ +--------+ +---------+--------+ | MEDICARE | MEDICA | [id number] | 03/22/20 | [phone] | | Medica | | | RE | | 04-Pre | 5 | | re | | | PART A | | sent | | | | | | AND B | | | | | | + +--------+ +--------+ +---------+--------+ | MEDICARE SUPPLEMENT | MEDICA | [id number] | 08/22/19 | [phone] | | Indemn [...] | Self | [birth year] | [address] | | Lauren | al/Fam | | 1940 | [phone] | [place] | | | zayda | | | 0 (Home) | [address] | + +--------+ +--------+ + + Advance Directives Patient has advance care planning documents, and code status on file. For more information, please contact:[facility] [address] + + + + + | Code Status | Date | Date | Comments | | | Activated | Inactivated | | + + + + + | Full Code | 07/12/2018 | 07/17/2018 | | | | 19:39 | 16:59 | | + + + + +
--- OUTSIDE RECORDS SUMMARY | ~2018-11-20 | XMS | Encounter Summary ---
Demographics + + + | Address | [address] | | | [place] [address] | + + + | Home Phone | | + + + | Preferred Language | Unknown | + + + | Marital Status | | + + + | Methodist Affiliation | 1041 | + + + | Race | Unknown | + + + | Ethnic Group | Unknown | + + + Author + + + | Author | [employer] | + + + | Organization | [facility] [employer] | + + + | Address [...] Team Providers + +------+ + | Care Automation Consultant Name | Role | Phone | + +------+ + | Mike Saucedo MD | PCP | | + +------+ + Reason for Visit + + + | Reason | Comments | + + + | Cardiac Event | end of study | | Monitor | | + + + Encounter Details +--------+ + + + + | Date | Type | Department | Care Team | Description | +--------+ + + + + | 09/18/ | Documentati | LATANYA Mueller | Mery Devlin, | Cardiac Event | | 2019 | on Only | Cardiology Ian | ERICA | Monitor (end of | | | | [address] | | study) | | | | [place] | | | | | | [address] | | | | | | [phone] | | | +--------+ + + + [...] encounter Progress Notes Nannette Morrison MD - 09/18/2018 11:59 PM PST Cardiac Manager Photography Date of Event Monitor: 09/18/2018 Referring Physician: [place]: Shireen Posey : 1940 Age: 78 y.o. female INDICATIONS: Atrial fibrillation CONCLUSIONS: 1. 26 days event monitor. 95% diagnostic data. 2. Patient was predominantly in sinus rhythm. 3. Average heart rate was 71 bpm, minimum heart rate 48 bpm and maximum heart rate 117 bpm. 4. Arrhythmia was noted as paroxysmal atrial fibrillation with rapid ventricular response, longest episode was 3 hours and 15 minutes. 5. Rare premature ventricular contractions.in this encounter Plan of Treatment +--------+---------+ + + + | Date | Type | Specialty | Care Team | Description | +--------+---------+ + + + | 02/04/ | Office | Cardiology | Nannette Morrison, | | | 2018 | Visit | | MD [address] | | | | | | [address] [place] | | | | | | [place] [address] | | | | | | [phone] | | | | | | | | +--------+---------+ + + + | 05/19/ | Office | Pulmonology | Sukhjinder, | | | 2018 | Visit | | Windy Aldrich, | | | | | | MD [address] | | | | | | [place] [address] | | | | | | [phone] | | | | | | | | +--------+---------+ + + + as of this encounter Visit Diagnoses + + | Diagnosis | + + | Paroxysmal atrial fibrillation (HCC) - Primary | + + | Atrial fibrillation | + +"
--- OUTSIDE RECORDS SUMMARY | ~2018-11-20 | XMS | Encounter Summary ---
Demographics + + + | Address | [address] | | | [place] [address] | + + + | Home Phone [...] Team Providers + +------+ + | Care It Instructor Name | Role | Phone | [...] Dx); Status | | | | [address] [facility] | [place] | post hip surgery | | | | [place] | [address] | | | | | [address] | | | | | | [phone] | | | +--------+ + + + [...]
--- OUTSIDE RECORDS SUMMARY | ~2018-11-20 | XMS | Encounter Summary ---
Demographics + + + | Address | [address] | | | [place] [address] | + + + | Home Phone | | + + + | Preferred Language | Unknown | + + + | Marital Status | | + + + | Protestant Affiliation | 1041 | + + + | Race | Unknown | + + + | Ethnic Group | Unknown | + + + Author + + + | Author | [employer] | + + + | Organization | [facility] [employer] | + + + | Address | [...] Team Providers + +------+ + | Care Extension Service Specialist Name | Role | Phone | [...] + + | 10/07/ | Refill | [facility] | Evelyn Kingston, | Bronchiectasis | | 2018 | | Pulmonology [address] | ELECTRONIC DATA INTERCHANGE SPECIALIST | without complication | | | | [address] | | ([facility]); Chronic | | | | [place], [place] | | obstructive | | | | [address] | | pulmonary disease, | | | | [phone] | | unspecified COPD | | | | | | type ([facility]) | +--------+--------+ + + + Social [...] [place], | | | | | | [place] [address] | | | | | | [phone] | | | | | | | | +--------+---------+ + + + | 05/19/ | Office | Pulmonology | Sukhjinder, | | | 2019 | Visit | | Windy Aldrich, | | | | | | MD [address] | | | | | | [place] [address] | | | | | | [phone] | | | | | | | | +--------+---------+ + + + as of this encounter Visit Diagnoses + + | Diagnosis | + + | Bronchiectasis without complication (HCC) | + + | Bronchiectasis without acute exacerbation | + + | Chronic obstructive pulmonary disease, unspecified COPD type (HCC) | + +"
--- OUTSIDE RECORDS SUMMARY | ~2018-11-20 | XMS | Encounter Summary ---
Demographics + + + | Address | [address] | | | [place] [address] | + + + | Home Phone | | + + + | Preferred Language | Unknown | + + + | Marital Status | | + + + | Caodaism Affiliation | 1041 | + + + | Race | Unknown | + + + | Ethnic Group | Unknown | + + + Author + + + | Author | [employer] | + + + | Organization | [facility] [employer] | + + + | Address | [...] Team Providers + +------+ + | Care Prison Keeper Name | Role | Phone | + [...] | | study) | | | | [place] | | | | | | [address] | | | | | | [phone] | | | +--------+ + + + [...] MD - 09/18/2018 11:59 PM PST Cardiac Financial Consultant Date of Event Monitor: 09/18/2018 Referring Physician: [place]: Shireen Posey : 1940 Age: 78 y.o. [...] [place] | | | | | | [place] [address] | | | | | | [phone] | | | | | | | | +--------+---------+ + + + | 05/19/ | Office | Pulmonology | Sukhjinder, | | | 2018 | Visit | | Windy Aldrich, | | | | | | MD [address] | | | | | | [place] [address] | | | | | | [phone] | | | | | | | | +--------+---------+ + + + as of this encounter Visit Diagnoses + + | Diagnosis | + + | Paroxysmal atrial fibrillation (HCC) - Primary | + + | Atrial fibrillation | + +"
--- OUTSIDE RECORDS SUMMARY | ~2018-11-20 | XMS | Encounter Summary ---
Demographics + + + | Address | [address] | | | [place] [address] | + + + | Home Phone | | + + + | Preferred Language | Unknown | + + + | Marital Status | | + + + | Mormonism Affiliation | 1041 | + + + | Race | Unknown | + + + | Ethnic Group | Unknown | + + + Author + + + | Author | [employer] | + + + | Organization | [facility] | + + + | Address | [...] Team Providers + +------+ + | Care Bead Inspector Name | Role | Phone | [...] | Specialty | Anticoagulati | Diagnoses | [facility], | [facility], | | | Services | on | Paroxysmal | MD Nannette | [address] | | | Required | | atrial | [address] | | | | | fibrillation | [address] | AR[place]ELLA CHRISTINE | | | | | ([facility]) | [address] | [place] | | | | | | [place], [place] | [address] | | | | | | [address] | Phone: | | | | | | Phone: | [phone] | | | | | | [phone] | Fax: | | | | | | Fax: | [phone] | | | | | | [phone] | | + + + + + + + Encounter Details +--------+ + + + + | Date | Type | Department | Care Team | Description | +--------+ + + + + | 10/17/ | Orders Only | [facility] [place] | Tamiko, Nannette, | Paroxysmal atrial | | 2019 | | Cardiology [place] | MD [address] | fibrillation (HCC) | | | | [address] | [address] [place], | (Primary Dx) | | | | [address] | [place] [address] | | | | | [place] [address] | [phone] | | | | | [phone] | | | +--------+ + + + [...] | | | | | | [place] [address] | | | | | | [phone] | | | | | | | | +--------+---------+ + + + | 05/19/ | Office | Pulmonology | Sukhjinder, | | | 2018 | Visit | | Windy Aldrich, | | | | | | [address] | | | | | | [place] [address] | | | | | | [phone] | | | | | | | [...]
--- OUTSIDE RECORDS SUMMARY | ~2018-11-20 | XMS | Clinical Summary ---
Demographics + + + | Address | [address] | | | [place] [address] | + + + | Home Phone | | + + + | Preferred Language | Unknown | + + + | Marital Status | | + + + | Sabianist Affiliation | 1041 | + + + | Race | Unknown | + + + | Ethnic Group | Unknown | + + + Author + + + | Author | [facility] | | | and [place] | + + + | Organization | [facility] | | | and [...] Team Providers + +------+ + | Care Emergency Room Registered Nurse Name | Role | Phone | [...] | + + + + | INFLUENZA, [id number], | 10/25/2009 | | | UNSPECIFIED | [...] + + | Father | | | [place] | | | | (Age | | [...] | | 08/21/ | 00-111 | | [id number]: Qty: 2 | c | Femur | ZIMM | | 2 | 2-140- | | on 07/13/2018 by Rodrigo, | | | | | | 01 / | | Abdi Guajardo MD | | | | | | /[id number] | | | | | | | | 592 | + +--------+--------+ +--------+--------+--------+ | Imp Hip Stem Cntrlzr 9mm - | Generi | Right: | JJHCS DEPUY | | 12/19/ | 1376-4 | | [id number]: Qty: 1 | c | Femur | [...] 02/18/ | 1035-4 | | 49x28 - [id number]: | c | | ORTHO - | [...] | | 05/21/ | 1570-1 | | [id number]: Qty: 1 | c | Femur | [...] | | 3 | 1-000 | | [id number]: Qty: 1 | | | DEPU | [...] +--------+ +---------+--------+ | MEDICARE | MEDICA | [id number] | 03/22/20 | [phone] | | Medica | | | RE | | 04-Pre | 5 | | re | | | PART A | | sent | | | | | | AND B | | | | | | + +--------+ +--------+ +---------+--------+ | MEDICARE SUPPLEMENT | MEDICA | [id number] | 08/22/19 | [phone] | | Indemn [...] Self | [birth year] | | [address] | | Lauren | al/Fam | | 1940 | [phone] | [place] | | | zayda | | | 0 (Home) | [address] | + +--------+ +--------+ + + Advance Directives Patient has advance care planning documents, and code status on file. For more information, please contact:[facility] [place] [address] + + + + + | Code Status | Date | Date | Comments | | | Activated | Inactivated | | + + + + + | Full Code | 07/12/2018 | 07/17/2018 | | | | 19:39 | 16:59 | | + + + + +
--- OUTSIDE RECORDS SUMMARY | ~2018-11-20 | XMS | Encounter Summary ---
Demographics + + + | Address | [address] | | | [place] [address] | + + + | Home Phone | | + + + | Preferred Language | Unknown | + + + | Marital Status | | + + + | Christianity Affiliation | 1041 | + + + | Race | Unknown | + + + | Ethnic Group | Unknown | + + + Author + + + | Author | [facility] | + + + | Organization | [facility] | + + + | Address | [...] Team Providers + +------+ + | Care Wastewater Manager Name | Role | Phone | + +------+ + | Mike Saucedo MD | PCP | | + +------+ + Reason for Visit +--------+ + | Reason | Comments | +--------+ + | Other | [facility] | +--------+ + Encounter Details +--------+ + + + + | Date | Type | Department | Care Team | Description | +--------+ + + + + | 08/27/ | Documentati | [facility] | Sapphire Schroeder | [facility] [address] | | 2019 | on Only | Cardiology Chan | CHAPITO Garcia | records) | | | | [address] | | | | | | [address] | | | | | | [place] [address] | | | | | | [phone] | | | +--------+ + + + [...] [place], | | | | | | [place] [address] | | | | | | [phone] | | | | | | | | +--------+---------+ + + + | 05/19/ | Office | Pulmonology | Sukhjinder, | | | 2019 | Visit | | Windy Aldrich, | | | | | | MD [address] | | | | | | [place] [address] | | | | | | [phone] | | | | | | | | +--------+---------+ + + + as of this encounter Visit Diagnoses Not on filein this encounter"
--- OUTSIDE RECORDS SUMMARY | ~2018-11-20 | XMS | Encounter Summary ---
Demographics + + + | Address | [address] | | | [place] [address] | + + + | Home Phone [...] Team Providers + +------+ + | Care Retail Product Demo Specialist Name | Role | Phone | [...] + + | 10/02/ | Office | [facility] | Matti Magallanes | S/P orthopedic | | 2018 | Visit | ORTHOPEDIC SURGERY | [address] | surgery, follow-up | | | | [address] [facility] | [facility] | exam (Primary Dx); | | | | [place], [place] | [place] [address] | Weakness of right | | | | [address] | [phone] | hip | | | | [phone] | | | +--------+---------+ + + + [...] weakness. She is not taking any prescribed cupv-nrn-kjtkrab pain medication. Cu rrent level pain is [...] right hip. [facility] discussed [facility] at [facility] a formal course of outpatient physical [...] program. This note was dictated using the Ayalogic voice recognition system. Minor errors in grammar [...]
--- OUTSIDE RECORDS SUMMARY | ~2018-11-20 | XMS | Clinical Summary ---
Demographics + + + | Address | [address] | | | [place] [address] | + + + | Home Phone | | + + + | Preferred Language | Unknown | + + + | Marital Status | | + + + | Orthodox Affiliation | CAT | + + + | Race | White | + + + | Ethnic Group | Not or | + + + Author + + + | Author | [facility] | + + + | Organization | [facility] | + + + | Address | Unknown | + + + | Phone | Unavailable | + + + Support + + + + + | Name | Relationship | Address | Phone | + + + + + | Oscar Martinez | ECON | [address] | | | | | [place], [place] | | | | | [address] | | + + + + + Care Team Providers + +------+ + | Care Taxation Inspector Name | Role | Phone | + +------+ + | Mike Saucedo MD | PP | | + +------+ + Source Comments BLAIRE is fully live on both [facility] Ambulatory and [facility] InPatient.[facility] Allergies No Known Allergies Current Medications + [...] + + + + + | Pneumococcal (Adult) | | | | | (1 of 2 - PCV13) | 4 | | | + + + + + | Influenza (Flu) | | | | | vaccination (#1) | 8 | | | + + [...] / Lot | + +------+------+ +--------+--------+--------+ | Pass Christian Pledget Ptfe 2.5cm X | | | CR BARD | | 07/21/ | [id number] | | 15cm - [id number]: Qty: | | | PERIPHERAL | | 2015 | / | | 1 on 10/26/2011 | | | VASCULAR | | | /[id number] | | | | | | | | 143 | + +------+------+ +--------+--------+--------+ Results Not on filefrom Last 3 Months Insurance + +--------+ +--------+ + + | Payer | Benefi | Subscriber | Type | Phone | Address | | | t Plan | ID | | | | | | / | | | | | | | Group | | | | | + +--------+ +--------+ + + | MEDICARE | MEDICA | xxxxxxxxxx | Medica | +1- | [address] | | | RE A & | | re | [phone] | [place] [address] | | | B | | | | | + +--------+ +--------+ + + | COMMERCIAL | INDIVI | [id number] | Indemn | | | | INDIVIDUAL | DUAL | | ity | | | | | COMMER | | | | | | | CIAL | | | | | + +--------+ +--------+ + + + +--------+ +--------+ + + | Guarantor Name | Accoun | Relation to | Date | Phone | Billing Address | | | t Type | Patient | of | | | | | | | | | | + +--------+ +--------+ + + | OSCAR MARTINEZ | Person | Self | [birth year] | Home: | [address] | | | al/Fam | | 1940 | [phone] | [place] [address] | | | [place]da | | | [phone] | | + +--------+ +--------+ + +
--- OUTSIDE RECORDS SUMMARY | ~2018-11-20 | XMS | Encounter Summary ---
Demographics + + + | Address | [address] | | | [place] [address] | + + + | Home Phone [...] Providers + +------+ + | Care Supervisor Patching Name | Role | Phone | + +------+ + | Mike Saucedo MD | PCP | | + +------+ + Encounter Details +--------+ + + + + | Date | Type | Department | Care Team | Description | +--------+ + + + + | 10/02/ | Hospital | [facility] | Abdi Wallace | Right hip pain; | | 2018 | Encounter | [facility] | MD Casandra [address] [facility] | Status post hip | | | | [address] [place] | [place], [place] | surgery | | | | [place], [place] | [address] | | | | | [address] | | | | | | [phone] | | | +--------+ + + + [...]
--- OUTSIDE RECORDS SUMMARY | ~2018-11-20 | XMS | Encounter Summary ---
Demographics + + + | Address | [address] | | | [place] [address] | + + + | Home Phone | | + + + | Preferred Language | Unknown | + + + | Marital Status | | + + + | Judaism Affiliation | 1041 | + + + | Race | Unknown | + + + | Ethnic Group | Unknown | + + + Author + + + | Author | [facility] | + + + | Organization | [facility] | + + + | Address | [...] Team Providers + +------+ + | Care Textile Finisher Name | Role | Phone | + +------+ + | Mike Saucedo MD | PCP | | + +------+ + Encounter Details +--------+ + + + + | Date | Type | Department | Care Team | Description | +--------+ + + + + | 10/01/ | Orders Only | [facility] | Nannette Morrison, | | | 2018 | | Cardiology Chan | MD [address] | | | | | [address] | [address] [place], | | | | | [address] | [place] [address] | | | | | [place] [address] | [phone] | | | | | [phone] | | | +--------+ + + + [...] | | | | | | [place] [address] | | | | | | [phone] | | | | | | | | +--------+---------+ + + + | 05/19/ | Office | Pulmonology | Sukhjinder, | | | 2018 | Visit | | Windy Aldrich, | | | | | | MD [address] | | | | | | [place] [address] | | | | | | [phone] | | | | | | | | +--------+---------+ + + + as of this encounter Visit Diagnoses Not on filein this encounter"
--- OUTSIDE RECORDS SUMMARY | ~2018-11-20 | XMS | Encounter Summary ---
Demographics + + + | Address | [address] | | | [place] [address] | + + + | Home Phone | | + + + | Preferred Language | Unknown | + + + | Marital Status | | + + + | Sikh Affiliation | 1041 | + + + | Race | Unknown | + + + | Ethnic Group | Unknown | + + + Author + + + | Author | [facility] | + + + | Organization | [facility] | + + + | Address | [...] Team Providers + +------+ + | Care Administrative Dietitian Name | Role | Phone | + +------+ + | Alexandre Saucedo MD | PCP | | + +------+ + Reason for Visit + + + | Reason | Comments | + + + | Follow-up | afib | + + + Encounter Details +--------+---------+ + + + | Date | Type | Department | Care Team | Description | +--------+---------+ + + + | 08/27/ | Office | [facility] | Nannette Morrison, | PAD (peripheral | | 2019 | Visit | Cardiology Chan | [address] | artery disease) | | | | [address] | [address] [place], | (HCC) (Primary Dx); | | | | [address] | [place] [address] | Moderate aortic | | | | [place] [address] | [phone] | regurgitation; | | | | [phone] | | Paroxysmal atrial | | | | | | fibrillation (HCC); | | | | | | Chronic obstructive | | | | | | pulmonary disease, | | | | | | unspecified COPD | | | | | | type ([facility]); | | | | | | Centrilobular | | | | | | emphysema ([facility]) | +--------+---------+ + + + Social History [...] + + + | Blood Pressure | 118/62 | 08/27/2018 12:22 PM PST | + + + + | Pulse | 77 | 08/27/2018 12:22 PM PST | + + + + | Temperature | - | - | + + + + | Respiratory Rate | - | - | + + + + | Oxygen Saturation | 98% | 08/27/2018 12:22 PM PST | + + + + | Inhaled Oxygen | - | - | | Concentration | | | + + + + | Weight | 60.2 kg (132 lb 11.2 | 08/27/2018 12:22 PM PST | | | oz) | | + + + + | Height | 165.1 cm (5' 5") | 08/27/2018 12:22 PM PST | + + + + | Body Mass Index | 22.08 | 08/27/2018 12:22 PM PST | + + + + in this encounter Progress Notes Nannette Morrison MD - 08/27/2018 12:30 PM PSTFormatting of this note may be different fro m the original. Date of visit: 08/27/2018 Primary Care Physician: ALEXANDRE SAUCEDO CHIEF COMPLAINT: Chief Complaint Patient presents with Follow-up afib HISTORY OF PRESENT ILLNESS: Shireen is 78 y.o. here for for follow up visit. Patient denies any chest pain or shortness of breath. Was hospitalized in Dec for fractured hip that required surgery. Post op, had an episode of atrial fibrillation with rapid ventricular response. [...] chart. Medications: Outpatient Encounter Prescriptions as of 08/27/2018 Medication Sig Dispense Refill albuterol (PROVENTIL) (2.5 MG/3ML) 0.083% nebulizer solution Take 3 mLs by nebulization every 6 (six) hours as needed for Wheezing (nebulize twice a day, and as needed). 336 mL 5 aspirin 81 MG EC tablet Take 81 mg by mouth daily with breakfast. umeclidinium bromide (INCRUSE ELLIPTA) 62.5 MCG/INH inhaler Inhale 1 puff into the lung s daily. 1 Inhaler 5 No facility-administered encounter medications on file as of 08/27/2018. Allergies Allergies Allergen Reactions Alendronate Other (See Comments) Ciprofloxacin GI Distress and Other (See Comments) Flunisolide Other (See Comments) Cannot remember Levaquin [Levofloxacin] Other (See Comments) Increased heart rate, weakness Lisinopril Other (See Comments) REVIEW OF SYSTEMS: Constitutional: Positive for fatigue only in midday. No fever, chills, and rigors. No repo rt of weight change. HEENT: Negative for nosebleeds, ear discharge, nasal congestion or soar throat. Eyes: Negative for visual disturbance, redness, or secretion. Respiratory: Negative for cough, sputum production, hemoptysis, wheezing. Cardiovascular: As history of present illness. Gastrointestinal: Negative for nausea, vomiting, diarrhea, abdominal pain and blood in stoo l. Genitourinary: Negative for dysuria or hematuria. Musculoskeletal: Arthritic pain, recent hop fracture. Skin: Negative for rash. Neurological: Negative for dizziness. No numbness. No recent falls. No slurred speech. Hematological: No significant bruising. Psychiatric/Behavioral: No depression or anxiety. PHYSICAL EXAM Vital Signs: BP 118/62 (BP Location: Left upper arm, Patient Position: Sitting) | Pulse 77 | Ht 1.651 m (5' 5") | Wt 60.2 kg (132 lb 11.2 oz) | SpO2 98% | BMI 22.08 kg/m GENERAL APPEARANCE: Alert, oriented, cooperative, no distress, appears stated age. HEENT: Extraocular movements were intact. No jaundice. Pupiles round and reactive. NECK: No JVD, lymphadenopathy. Carotid upstrokes normal. No carotid bruit heard. CARDIAC: Regular rhythm and rate. There is normal S1 and S2. Systolic and diastolic murmur in the left lower sternal border. CHEST: Normal bilateral symmetrical chest excursion.ackles or wheezing. No evidence of dull ness. ABDOMEN: Soft.No tenderness or guarding. No palpable [...] EKG. 11/29/2017 Last Echo: 07/16/2108 Reported from Juliette: normal LV size and function EF 70%. [...] arteries. Antegrade flow within bilateral vertebral arteries. 24hr , 11/18/2011: Sinus rhythm, 49-96bpm, frequent PAC's, PVC. ASSESSMENT: Patient is 78 y.o. with the following medical problems: 1. Paroxysmal atrial fibrillation, post op after hip surgery, less than 12 hours. 2. Rheumatic heart disease. 3. Moderate aortic regurgitation with no sign of congestive heart failure. 4. Chronic obstructive pulmonary disease follows up with Dr. Richard. 5. Arthritic pain. 6. Mild pulmonary hypertension. Recommendations: Reviewed patient hospitalization and previous echocardiogram. Has no signs of congestive heart failure. Blood pressures controlled. Weight has been stabl e. Atrial fibrillation was only post op and short lived. Will evaluated with month event monitor before to commit the patient on lifelong anticoagul ation. Will continue with aspirin. Will continue to monitor symptomology. We will call with any change in symptoms. *This report has been prepared using a voice recognition system. The report was reviewed fo r accuracy, however, sound-alike word errors, addition and/or deletions may occur. If there is any question about this report please contact me. Heydi Martino MD this encounter Plan of Treatment +--------+---------+ + + + | Date | Type | Specialty | Care Team | Description | +--------+---------+ + + + | 02/04/ | Office | Cardiology | Nannette Morrison, | | | 2018 | Visit | | MD [address] | | | | | | Dr [place], | | | | | | [place] [address] | | | | | | [phone] | | | | | | | | +--------+---------+ + + + | 05/19/ | Office | Pulmonology | [facility], | | | 2018 | Visit | | Windy Aldrich, | | | | | | MD [address] | | | | | | [place] [address] | | | | | | [phone] | | | | | | | | +--------+---------+ + + + + +--------+ + + | Name | Priori | Associated Diagnoses | Order Schedule | | | ty | | | + +--------+ + + | CRD Cardiac Event Monitor | Routin | Paroxysmal atrial | Expected: | | | e | fibrillation (HCC) | 08/27/2018, Expires: | | | | Chronic obstructive | 08/27/2019 | | | | pulmonary disease, | | | | | unspecified COPD | | | | | type (HCC) | | + +--------+ + + [...] the | | | | PST | ([facility]) Moderate | results section. | | | | | aortic regurgitation | | + +--------+ + + + in this encounter Results EKG STANDARD 12 LEAD (08/27/2018 12:30 PM) + + + + + | Component | Value | Ref Range | Performed At | + + + + + | Ventricular Rate | 75 | BPM | [facility] | + + + + + | Atrial Rate | 75 | BPM | [facility] | + + + + + | P-R Interval | 148 | ms | [facility] | + + + + + | QRS Duration | 78 | ms | [facility] | + + + + + | Q-T Interval | 394 | ms | [facility] | + + + + + | QTC Calculation | 439 | ms | [facility] | | (Bezet) | | | | + + + + + | Calculated P Calvin | 36 | degrees | [facility] | + + + + + | Calculated R Calvin | -29 | degrees | [facility] | + + + + + | Calculated T Calvin | 35 | degrees | [facility] | + + + + + | Diagnosis | Normal sinus | | [facility] | | | rhythmNormal ECGWhen | | | | | compared with ECG of | | | | | 29-NOV-2016 | | | | | 09:11,Previous ECG has | | | | | undetermined rhythm, | | | | | needs reviewPlease refer | | | | | to Providers office | | | | | visit note for Providers | | | | | | | | | | Interpretation.Confirmed | | | | | by [facility] Read Only, | | | | | [facility] ([id number]), | | | | | make up editor Jamal Jacome | | | | | ([id number]) on 08/27/2018 | | | | | 12:45:26 PM | | | + + + + + + + + + + | Performing | Address | City/State/Zipcode | Phone Number | | Organization | | | | + + + + + | [facility] | [address] | [place] [address] | | + + + + + in this encounter Visit Diagnoses + + | Diagnosis | + + | PAD (peripheral artery disease) (HCC) - Primary | + + | Unspecified disorders of arteries and arterioles | + + | Moderate aortic regurgitation | + + | Aortic valve disorders | + + | Paroxysmal atrial fibrillation (HCC) | + + | Atrial fibrillation | + + | Chronic obstructive pulmonary disease, unspecified COPD type (HCC) | + + | Centrilobular emphysema (HCC) | + + | Other emphysema | + +
--- OUTSIDE RECORDS SUMMARY | ~2018-11-20 | XMS | Encounter Summary ---
Demographics + + + | Address | [address] | | | [place] [address] | + + + | Home Phone | | + + + | Preferred Language | Unknown | + + + | Marital Status | | + + + | Quaker Affiliation | 1041 | + + + | Race | Unknown | + + + | Ethnic Group | Unknown | + + + Author + + + | Author | [facility] | + + + | Organization | [email or web address] | + + + | Address | [...] Team Providers + +------+ + | Care Proofer Name | Role | Phone | + [...] | 2019 | on Only | [facility] [place] | ERICA | Monitor (urgent | | | | [address] | | report) | | | | [place], [place] | | | | | | [address] | | | | | | [phone] | | | +--------+ + + + [...] | | | | | | [place] [id number] | | | | | | [phone] | | | | | | | | +--------+---------+ + + + | 05/19/ | Office | Pulmonology | Sukhjinder, | | | 2018 | Visit | | Windy Aldrich, | | | | | | MD [address] | | | | | | [place] [address] | | | | | | [phone] | | | | | | | | +--------+---------+ + + + as of this encounter Visit Diagnoses Not on filein this encounter"
--- OUTSIDE RECORDS SUMMARY | ~2018-11-20 | XMS | Encounter Summary ---
Demographics + + + | Address | [address] | | | [place] [address] | + + + | Home Phone | | + + + | Preferred Language | Unknown | + + + | Marital Status | | + + + | Sikhism Affiliation | 1041 | + + + | Race | Unknown | + + + | Ethnic Group | Unknown | + + + Author + + + | Author | [facility] | | | and [place] | + + + | Organization | [facility] | | | [...] Team Providers + +------+ + | Care Secondary Market Manager Name | Role | Phone | [...] Services | Therapy | Weakness of | [place] [facility] | | | Required | | right hip | [address] | PHYSICAL | | | | | S/P | [address] | [address] | | | | | orthopedic | [address] | [place] | | | | | surgery, | [place] | [place] | | | | | follow-up | [address] | [address] | | | | | exam | Phone: | Phone: | | | | | | [phone] | [phone] | | | | | | Fax: | Fax: | | | | | | [phone] | [phone] | + + + + + + [...] (Primary Dx); | | | | [address] [facility] | [facility] | S/P orthopedic | | | | [place], [place] | [place] [address] | surgery, follow-up | | | | [address] | [phone] | exam | | | | [phone] | | | +--------+ + + + [...]
--- OUTSIDE RECORDS SUMMARY | ~2018-11-20 | XMS | Encounter Summary ---
Demographics + + + | Address | [address] | | | [place] [address] | + + + | Home Phone | | + + + | Preferred Language | Unknown | + + + | Marital Status | | + + + | Evangelical Affiliation | 1041 | + + + | Race | Unknown | + + + | Ethnic Group | Unknown | + + + Author + + + | Author | [facility] | + + + | Organization | [facility] | + + + | Address | [...] Team Providers + +------+ + | Care Spanner Operator Name | Role | Phone | + +------+ + | Mike Saucedo MD | PCP | | + +------+ + Encounter Details +--------+ + + + + | Date | Type | Department | Care Team | Description | +--------+ + + + + | 10/01/ | Orders Only | [facility] [place] | Nannette Morrison, | | | 2018 | | Cardiology Chan | MD [address] | | | | | [address] | [address] [place], | | | | | [address] | [place] [address] | | | | | [place] [address] | [phone] | | | | | [phone] | | | +--------+ + + + [...] | | | | | | [place] [address] | | | | | | [phone] | | | | | | | | +--------+---------+ + + + | 05/19/ | Office | Pulmonology | Sukhjinder, | | | 2018 | Visit | | Windy Aldrich, | | | | | | MD [address] | | | | | | [place] [address] | | | | | | [phone] | | | | | | | | +--------+---------+ + + + as of this encounter Visit Diagnoses Not on filein this encounter"
--- OUTSIDE RECORDS SUMMARY | ~2018-11-20 | XMS | Encounter Summary ---
Demographics + + + | Address | [address] | | | [place] [address] | + + + | Home Phone | | + + + | Preferred Language | Unknown | + + + | Marital Status | | + + + | Taoist Affiliation | 1041 | + + + | Race | Unknown | + + + | Ethnic Group | Unknown | + + + Author + + + | Author | [facility] | + + + | Organization | [facility] [employer] [facility] | + + + | Address | [...] Team Providers + +------+ + | Care Blood Typer Name | Role | Phone | + [...] + + | 08/27/ | Office | [facility] | Nannette [place], | PAD (peripheral | | 2019 | Visit | Cardiology [place] | [address] | artery disease) | | | | [address] | Dr [place], | (HCC) (Primary Dx); | | | | [address] | [place] [address] | Moderate aortic | | | | [place] [address] | [phone] | regurgitation; | | | | [phone] | | Paroxysmal atrial | | | | | | fibrillation (HCC); | | | | | | Chronic obstructive | | | | | | pulmonary disease, | | | | | | unspecified COPD | | | | | | type ([facility]); | | | | | | Centrilobular | | | | | | emphysema ([facility]) | +--------+---------+ + + + Social History [...] EKG. 11/29/2017 Last Echo: 07/16/2108 Reported from [place]: normal LV size and function EF 70%. [...] [place], | | | | | | [place] [address] | | | | | | [phone] | | | | | | | | +--------+---------+ + + + | 05/19/ | Office | Pulmonology | [facility], | | | 2018 | Visit | | Windy Aldrich, | | | | | | MD [address] | | | | | | [place] [address] | | | | | | [phone] | | | | | | | [...] the | | | | PST | ([facility]) Moderate | results section. | | | [...] + + + + | Calculated P [place] | 36 | degrees | [facility] EKG | + + + + + | Calculated R [place] | -29 | degrees | [facility] E[facility] | + + + + + | Calculated T [place] | 35 | degrees | [facility] EKG | + + + + + | Diagnosis | Normal sinus | | [facility] EKG | | | rhythmNormal ECGWhen | [...] | | | | | by [facility] [place] Read Only, | | | | | [facility] [address] ([id number]), | | | | | design editor Jamal Jacome | | | | | ([id number]) on 08/27/2018 | | | | | 12:45:26 PM | | | + + + + + + + + + + | Performing | Address | City/State/Zipcode | Phone Number | | Organization | | | | + + + + + | [facility] | [address] | [place] [address] | | + + + + + [...]
--- OUTSIDE RECORDS SUMMARY | ~2018-11-20 | XMS | Encounter Summary ---
Demographics + + + | Address | [address] | | | [place] [address] | + + + | Home Phone | | + + + | Preferred Language | Unknown | + + + | Marital Status | | + + + | Faith Affiliation | 1041 | + + + | Race | Unknown | + + + | Ethnic Group | Unknown | + + + Author + + + | Author | [employer] | + + + | Organization | [facility] | + + + | Address [...] Team Providers + +------+ + | Care Air Conditioning Technician Name | Role | Phone | [...] | | | | | [place] [address] | | | | | | [phone] | | | +--------+ + + + [...] [place], | | | | | | [place] [address] | | | | | | [phone] | | | | | | | | +--------+---------+ + + + | 05/19/ | Office | Pulmonology | Sukhjinder, | | | 2019 | Visit | | Windy Aldrich, | | | | | | MD [address] | | | | | | [place] [address] | | | | | | [phone] | | | | | | | | +--------+---------+ + + + as of this encounter Visit Diagnoses Not on filein this encounter"
--- OUTSIDE RECORDS SUMMARY | ~2018-11-20 | XMS | Encounter Summary ---
Demographics + + + | Address | [address] | | | [place] [address] | + + + | Home Phone | | + + + | Preferred Language | Unknown | + + + | Marital Status | | + + + | Anabaptist Affiliation | 1041 | + + + | Race | Unknown | + + + | Ethnic Group | Unknown | + + + Author + + + | Author | [facility] [employer] | + + + | Organization | [facility] [employer] | + + + | Address | [...] Team Providers + +------+ + | Care Biomedical Engineering Technician Name | Role | Phone | [...] | | | | | disease | [address] | | | | | | unspecified | Phone: | | | | | | Procedures | [phone] | | | | | | Echo | Fax: | | | | | | cardiac | [phone] | | | | | | adult [...] | | | | | Peripheral | [place], [place] | [place] | | | | | arterial | [address] | [address] Phone: | | | | | disease | Phone: | [phone] | | | | | (HCC) | [phone] | Fax: | | | | | Bronchiectas | Fax: | [phone] | | | | | is without | [phone] | | | | | | complication [...] | | | | | | | ([facility]) | | | +--------+ + + + + + Encounter Details +--------+ + + + + | Date | Type | Department | Care Team | Description | +--------+ + + + + | 11/17/ | Initial | [facility] | Maksim Mckenzie | Paroxysmal atrial | | 2019 | consult | Cardiology [place] | MD [address] | fibrillation (HCC) | | | | [address] | [address] | (Primary Dx); Aortic | | | | [place], [place] | [place] [address] | valve | | | | [address] | [phone] | insufficiency, | | | | [phone] | | etiology of cardiac | | [...] to continue regular follow-up with 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 I have r ecommended a follow-up echocardiogram [...] to her next visit wit cardiology in [place]. This encounter was dictated with voice recognition [...] [place], | | | | | | [place] [address] | | | | | | [phone] | | | | | | | | +--------+---------+ + + + | 05/19/ | Office | Pulmonology | Sukhjinder, | | | 2018 | Visit | | Windy Aldrich, | | | | | | MD [address] | | | | | | [place] [address] | | | | | | [phone] | | | | | | | [...] + + + + | Calculated P [place] | 63 | degrees | [facility] E[facility] | + + + + + | Calculated R [place] | 31 | degrees | [facility] | + + + + + | Calculated T [place] | 54 | degrees | [facility] | + + + + + | Diagnosis | Please refer to | | [facility] EKG | | | Providers office visit | | | | | note for Providers | | | | | Interpretation.Confirmed | | | | | by [facility] [place] Read Only, | | | | | [facility] [place] ([id number]), | | | | | editorial project manager Jamal Jacome | | | | | ([id number]) on 11/17/2018 | | | | | 10:35:41 AM | | | + + + + + + + + + + | Performing | Address | City/State/Zipcode | Phone Number | | Organization | | | | + + + + + | [facility] | [address] | [place] [address] | | + + + + + in this encounter Visit Diagnoses + + | Diagnosis | + + | Paroxysmal atrial fibrillation (HCC) - Primary | + + | Atrial fibrillation | + + | Aortic valve insufficiency, etiology of cardiac valve disease unspecified | + +
--- OUTSIDE RECORDS SUMMARY | ~2018-11-20 | XMS | Clinical Summary ---
Demographics + + + | Address | [address] | | | [place] [address] | + + + | Home Phone | | + + + | Preferred Language | Unknown | + + + | Marital Status | | + + + | Worship Affiliation | CAT | + + + | Race | White | + + + | Ethnic Group | Not or | + + + Author + + + | Author | [facility] | + + + | Organization | [facility] | + + [...] [address], [place] | | | | | [address] | | + + + + + Care Team Providers + +------+ + | Care Er Manager Name | Role | Phone | + +------+ + | Mike Saucedo MD | PP | | + +------+ + Source Comments BLAIRE is fully live on both [facility] Ambulatory and [facility]Patient[facility] Allergies No Known Allergies Current [...] / Lot | + +------+------+ +--------+--------+--------+ | [place] P[place]get Ptfe 2.5cm X | | | CR BARD | | 07/21/ | [id number] | | 15cm - [id number]: Qty: | | | PERIPHERAL | | [...] | re | [address] | [place] [address] | | | B | | | [...] | 1940 | [phone] | [place] [address] | | | zayda | | | [phone] | | + +--------+ +--------+ + +
--- OUTSIDE RECORDS SUMMARY | ~2018-11-20 | XMS | Encounter Summary ---
Demographics + + + | Address | [address] | | | [place] [address] | + + + | Home Phone | | + + + | Preferred Language | Unknown | + + + | Marital Status | | + + + | Yarsanism Affiliation | 1041 | + + + | Race | Unknown | + + + | Ethnic Group | Unknown | + + + Author + + + | Author | [facility] [employer] | + + + | Organization | [facility] [employer] | + + + | Address | [...] Team Providers + +------+ + | Care Store Team Member Name | Role | Phone | [...] | | | | | | [facility] [address] | | | | | | [place] [address] | | | | | | [phone] | | | +--------+ + + + [...] | | | | | | [place] [address] | | | | | | [phone] | | | | | | | | +--------+---------+ + + + | 05/19/ | Office | Pulmonology | [facility], | | | 2018 | Visit | | Windy Aldrich, | | | | | | [address] | | | | | | [place] [address] | | | | | | [phone] | | | | | | | | +--------+---------+ + + + as of this encounter Visit Diagnoses Not on filein this encounter"
--- OUTSIDE RECORDS SUMMARY | ~2018-11-20 | XMS | Encounter Summary ---
Demographics + + + | Address | [address] | | | [place] [address] | + + + | Home Phone | | + + + | Preferred Language | Unknown | + + + | Marital Status | | + + + | Episcopal Affiliation | 1041 | + + + | Race | Unknown | + + + | Ethnic Group | Unknown | + + + Author + + + | Author | [employer] [facility] | + + + | Organization | [facility] | + + + | Address | [...] Team Providers + +------+ + | Care Sex Therapist Name | Role | Phone | + [...] + + | 11/17/ | Office | [facility] | Sukhjinder, | Bronchiectasis | | 2019 | Visit | Pulmonology [address] | Windy Aldrich, | without complication | | | | [address] | [address] | ([facility]) (Primary Dx); | | | | [place], [place] | [place] [address] | Mild airflow | | | | [address] | [phone] | obstruction on | | | | [phone] | | pulmonary function | | | | | | test; ILD | | | | | | (interstitial lung | | | | | | disease) ([facility]); | | | | | | Multiple pulmonary | | | | | | nodules; 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 She denies jonathan st pains, but [...] 0 years. 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 Moderate LAE. RA/RV [...] culture showed evidence of pseudomonas aeruginosa (lucero holborok a colonizer), and atypical mycobacteria (only once [...] if with any worsening of symptoms. Windy Slaughetr MD Pulmonary and Critical Care Medicine [facility] [address], [place] [address] in this encounter Plan of Treatment +--------+---------+ + + + | Date | Type | Specialty | Care Team | Description | +--------+---------+ + + + | 02/04/ | Office | Cardiology | Nannette [place], | | | 2018 | Visit | | [address] | | | | | | Dr [place], | | | | | | [place] [address] | | | | | | [phone] | | | | | | | | +--------+---------+ + + + | 05/19/ | Office | Pulmonology | Sukhjinder, | | | 2018 | Visit | | Windy Aldrich, | | | | | | [address] | | | | | | [place] [address] | | | | | | [phone] | | | | | | | [...]
[~2018-11-20 17:20] MED LIST changes: +MAPAP325 MG PO; +METOPROLOL TART50 MG PO; +PERCOCET 7.5-31 EACH PO; +WARFARIN SODIUM5 MG PO
--- NOTE | 2018-11-21 14:03 | EKG ---
[facility] [address] [facility] [place], [place] [address] Signed Normal sinus rhythm Normal ECG When compared with ECG of 12-JUL-2018 15:41, T wave inversion no longer evident in Anterior leads Confirmed by EDUARDO HILARIO DO ([id number]) on 11/21/2018 2:03:26 PM Electronically Signed By: EDUARDO HILARIO DO 11/21/18 1403 PATIENT NAME: MICHELLEOSCAR Electrocardiogram DATE OF : 38 PHYSICIAN: EDUARDO HILARIO DO REPORT #: [id number] REPORT IS CONFIDENTIAL AND NOT TO BE RELEASED WITHOUT AUTHORIZATION
== END 2018-11-20 18:33 | disposition home or self-care (01) ==
LOC: ED 17:20
DX: H65.93 Unspecified nonsuppurative otitis media, bilateral (principal); R42 Dizziness and giddiness; Z87.891 Personal history of nicotine dependence; Z88.1 Allergy status to other antibiotic agents; Z88.8 Allergy status to other drugs, medicaments and biological substances; Z79.01 Long term (current) use of anticoagulants; Z79.899 Other long term (current) drug therapy
CPT/HCPCS: 80053; 84484; 85025; 85610; 85730; 93005; 93010; 99284-25

== ENCOUNTER 2019-03-13 07:55 | Day surgery (SDC) | payer MEDICARE, OTHER ==
[~2019-03-13] VITALS: Ht 165.1 cm; Wt 61.7 kg
--- NOTE | 2019-03-13 09:29 | NUR ---
03/13/19 0929 Sherly Lujan 0922- PT ARRIVES TO PACU EASILY AROUSABLE TO VOICE. PT REPORTS NO PAIN OR NAUSEA. RESP EVEN AND UNLABORED. OXYGEN SAT HIGH 90'S TO 100% ON 2L VIA NC. 0924- OXYGEN TITRATED OFF.
--- NOTE | 2019-03-13 17:19 | OR ---
[facility] [address] [place], [place] [address] Signed DATE OF OPERATION: 03/13/2019 SURGEON: Lacey Dave MD PREOPERATIVE DIAGNOSES: 1. History of polyps. 2. Family history of colon cancer in sister. POSTOPERATIVE DIAGNOSES: 1. Mild inflammation of transverse colon. No evidence of polyps. 2. Minimal diverticula. PROCEDURE PERFORMED: Total colonoscopy to cecum with biopsy of transverse colon and rectum. ANESTHESIA: Intravenous sedation, fentanyl 100 mcg, Versed 4 mg. INDICATION: The patient is a 78-year-old white woman, a patient of Dr. Saucedo, last underwent colonoscopy in [address] Nelson in [place]. She has had polyps in the past. She does have family history of colon cancer in her sister. She is generally free of symptoms at this time. She understands the risks of bleeding, infection, and perforation related to colonoscopy and wished to proceed. 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 FINDINGS: The prep was good. Complete colonoscopy was undertaken of the cecum. There was only mild inflammatory change of the transverse colon, none elsewhere. There were minimal diverticula and no polyps. DESCRIPTION OF PROCEDURE: The patient was brought to the endoscopy suite and placed in lateral decubitus position, given intravenous sedation to the point of slurred speech and nystagmus. Digital rectal examination was normal. An Olympus video colonoscope was passed into the rectum and manipulated throughout the colon. The mucosa was slightly friable. Ultimately, the scope was advanced to the Electronically Signed By: LACEY DAVE MD 03/13/19 1719 PATIENT NAME: OSCAR MARTINEZ OPERATIVE REPORT DATE OF : 38 REPORT #: [id number] PHYSICIAN: LACEY DAVE MD PCP: A[place]ANDRE SAUCEDO MD REPORT IS CONFIDENTIAL AND NOT TO BE RELEASED WITHOUT AUTHORIZATION [facility] [address] [place], [place] [address] Signed cecum with good visualization of the ileocecal valve and a polyp of mucosa behind the ileocecal valve with biopsy forceps showed no sign of abnormality there. The scope was withdrawn and examination throughout showed no sign of abnormality. Into the transverse colon, there was mild inflammatory change. Not much and certainly no ulceration. Biopsies were obtained. The scope was withdrawn further and there were no findings other than a few scattered diverticula. Retroflexed view of the rectum was normal and biopsies taken of the rectum as well. The scope was removed. The patient was taken to recovery room in good condition. CONCLUDING DIAGNOSES: No evidence of polyps. Mild inflammation of transverse colon. PLAN: Recommend repeat colonoscopy in 5 years based on personal history of polyps as well as family history of colon cancer in sister. Sooner of course if problems. She will return to the ongoing care of Dr. Saucedo. MD INOCENTE Smith/REJI /[id number] cc: Dr. Saucedo Copies: ~ Electronically Signed By: LACEY DAVE MD 03/13/19 0245 PATIENT NAME: MICHELLEOSCAR RAQUEL OPERATIVE REPORT DATE OF : 38 REPORT #: [id number] PHYSICIAN: LACEY DAVE MD PCP: A[place]ANDRE SAUCEDO MD REPORT IS CONFIDENTIAL AND NOT TO BE RELEASED WITHOUT AUTHORIZATION
== END 2019-03-13 10:05 | disposition home or self-care (01) ==
LOC: OPS 07:55 → DS 09:00 → OPS 09:00
PROVIDERS: Surgery
PROC: 0DBP8ZX Excision of Rectum, Via Natural or Artificial Opening Endoscopic, Diagnostic (ICD-10-PCS; 2019-03-13)
PROC: 0DBL8ZX Excision of Transverse Colon, Via Natural or Artificial Opening Endoscopic, Diagnostic (ICD-10-PCS; principal; 2019-03-13 09:00)
DX: Z12.11 Encounter for screening for malignant neoplasm of colon (principal); K52.9 Noninfective gastroenteritis and colitis, unspecified; K57.30 Diverticulosis of large intestine without perforation or abscess without bleeding; K21.0 Gastro-esophageal reflux disease with esophagitis; J44.9 Chronic obstructive pulmonary disease, unspecified; K31.84 Gastroparesis; I25.10 Atherosclerotic heart disease of native coronary artery without angina pectoris; Z86.010 Personal history of colon polyps; Z80.0 Family history of malignant neoplasm of digestive organs; Z88.1 Allergy status to other antibiotic agents; Z88.8 Allergy status to other drugs, medicaments and biological substances; Z87.891 Personal history of nicotine dependence; Z98.890 Other specified postprocedural states
CPT/HCPCS: 99153; G0500; J2250; J3010; J7120

== ENCOUNTER 2019-04-14 22:13 | Emergency (ER) | payer MEDICARE, OTHER ==
[~2019-04-14] VITALS: Ht 165.1 cm; Wt 59.4 kg
== END 2019-04-14 23:16 | disposition home or self-care (01) ==
LOC: ED 22:13
DX: I48.91 Unspecified atrial fibrillation (principal); Z87.891 Personal history of nicotine dependence; Z88.1 Allergy status to other antibiotic agents; Z88.8 Allergy status to other drugs, medicaments and biological substances; Z79.01 Long term (current) use of anticoagulants; Z79.899 Other long term (current) drug therapy
CPT/HCPCS: 99284

== ENCOUNTER 2019-06-13 08:31 | Emergency (ER) | payer MEDICARE, OTHER ==
[~2019-06-13] VITALS: Ht 165.1 cm; Wt 59.4 kg
--- OUTSIDE RECORDS SUMMARY | ~2019-06-13 | XMS | Encounter Summary ---
Demographics + + + | Address | [address] | | | [place] [address] | + + + | Home Phone | | + + + | Preferred Language | Unknown | + + + | Marital Status | | + + + | Samaritan Affiliation | 1041 | + + + | Race | Unknown | + + + | Ethnic Group | Unknown | + + + Author + + + | Author | [facility] | | | and [place] | + + + | Organization | [facility] | | | and [place] | + + + | Address | Unknown | + + + | Phone | Unavailable | + + + Support + + +---------+ + | Name | Relationship | Address | Phone | + + +---------+ + | Sade Beckwith | ECON | Unknown | | + + +---------+ + | Yuri Teofilo) | ECON | Unknown | | | Kalpesh | | | | + + +---------+ + Care Team Providers + +------+ + | Care Professor Of Special Education Name | Role | Phone | + +------+ + PCP | Unavailable | + +------+ + Encounter Details +--------+ + + + + | Date | Type | Department | Care Team | Description | +--------+ + + + + | 07/22/ | Hospital | [facility] | | | | 1998 - | Encounter | [facility] | | | | | | CENTER [address] | | | | 07/08/ | | [place] | | | | 1998 | | [address] | | | | | | [phone] | | | +--------+ + + + + Social History + +-------+ +--------+------+ | Tobacco Use | Types | Packs/Day | Years | Date | | | | | Used | | + +-------+ +--------+------+ | Never Assessed | | | | | + +-------+ +--------+------+ + + + | Sex Assigned at [...] as of this encounter Plan of Treatment +--------+---------+ + + + | Date | Type | Specialty | Care Team | Description | +--------+---------+ + + + | 07/08/ | Office | Cardiology | Nannette [place], | | | 2019 | Visit | | MD [address] | | | | | | [place] | | | | | | [address] | | | | | | | | +--------+---------+ + + + | 11/04/ | Office | Pulmonology | Sukhjinder, | | | 2019 | Visit | | Windy Aldrich, | | | | | | [address] | | | | | | [place], | | | | | | [place] [address] | | | | | | [phone] | | | | | | | | +--------+---------+ + + + documented as of this encounter Visit Diagnoses Not on filedocumented in this encounter"
--- OUTSIDE RECORDS SUMMARY | ~2019-06-13 | XMS | Encounter Summary ---
Demographics + + + | Address | [address] | | | [place] [address] | + + + | Home Phone | | + + + | Preferred Language | Unknown | + + + | Marital Status | | + + + | Baptist Affiliation | 1041 | + + + | Race | Unknown | + + + | Ethnic Group | Unknown | + + + Author + + + | Author | [facility] | | | and [place] | + + + | Organization | [facility] | | | and [place] | + + + | Address | Unknown | + + + | Phone | Unavailable | + + + Support + + +---------+ + | Name | Relationship | Address | Phone | + + +---------+ + | Sade Beckwith | ECON | Unknown | | + + +---------+ + | Yuri | ECON | Unknown | | | Kalpesh | | | | + + +---------+ + Care Team Providers + +------+ + | Care Partition Assembler Name | Role | Phone | + +------+ + | Mike Saucedo MD | PCP | | + +------+ + Encounter Details +--------+ + + + + | Date | Type | Department | Care Team | Description | +--------+ + + + + | 10/02/ | Hospital | [facility] | Abdi [place] | Right hip pain; | | 2019 | Encounter | [facility] | MD Casandra [address] [facility] | Status post hip | | | | [address] [place] | [place], [place] | surgery | | | | [place], [place] | [address] | | | | | [address] | | | | | | [phone] | | | +--------+ + + + [...] + +---------+ + | Alcohol Use | Drinks/Week | oz/Week | Comments | + + +---------+ + | No | 0 Standard drinks | 0.0 | | | | or equivalent | | | + + +---------+ + [...] + + documented as of this encounter Medications at Time of Discharge + + + +---------+ + + | Medication | Sig | Dispensed | Refills | Start | End Date | | | | | | Date | | + + + +---------+ + + | acetaminophen | Take 2 tablets by | 120 | 0 | // | | | (TYLENOL) 325 mg | mouth every 4 hours | tablet | | 18 | | | tablet | as needed for Pain | | | | | | | (or fever >= 38.6 C | | | | | | | (101.5 F)). | | | | | + + + +---------+ + + | albuterol 2.5 mg/3 | Take 1 ampule by | | 0 | | | | mL nebulizer | nebulization 2 times | | | | | | solution | daily. | | | | | + + + +---------+ + + | aspirin 81 mg EC | Take 81 mg by mouth | | 0 | | | | tablet | Daily. | | | | | + + + +---------+ + + | metoprolol | take 1 tablet by | | 1 | 10/02/19 | | | tartrate (LOPRESSOR) | mouth twice a day | | | 19 | | | 50 mg tablet | | | | | | + + + +---------+ + + | metroNIDAZOLE | Apply 0.75 % | | 0 | | | | (METROCREAM) 0.75 % | topically Twice | | | | | | cream | daily as needed. | | | | | + + + +---------+ + + | Misc. Devices | Dx: 494.0 NIGEL: 99 | 1 each | 1 | 06/04/20 | | | (ACAPELLA) MISC | months Use as | | | 14 | | | | directed twice | | | | | | | daily. | | | | | + + + +---------+ + + | umeclidinium | Inhale 1 puff into | | 0 | | | | (INCRUSE ELLIPTA) | the lungs Daily. | | | | 9 | | 62.5 mcg/puff | | | | | | | inhaler | | | | | | + + + +---------+ + + documented as of this encounter Plan of Treatment +--------+---------+ + + + | Date | Type | Specialty | Care Team | Description | +--------+---------+ + + + | 07/08/ | Office | Cardiology | Nannette [place], | | | 2018 | Visit | | MD [address] | | | | | | [place] | | | | | | [address] | | | | | | | | +--------+---------+ + + + | 11/04/ | Office | Pulmonology | Sukhjinder, | | | 2019 | Visit | | Windy Aldrich, | | | | | | MD [address] | | | | | | [place] | | | | | | [place] [address] | | | | | | [phone] | | | | | | | | +--------+---------+ + + + documented as of this encounter Procedures + +--------+ + + + | Procedure Name | Priori | Date/Time | Associated Diagnosis | Comments | | | ty | | | | + +--------+ + + + | XR HIP RIGHT 2-3 | Routin | 10/02/2018 | Right hip pain | Results for this | | VIEWS | e | 11:01 AM | Status post hip | procedure are in the | | | | PDT | surgery | results section. | + +--------+ + + + documented in this encounter Results XR Hip Right 2-3 Views (10/02/2018 11:01 AM PDT) + + | Specimen | + + | | + + + + + | Narrative | Performed At | + + + | EXAM:XR HIP RIGHT 2-3 VIEWS CLINICAL HISTORY: right hip | [facility] | | hemiarthroplasty performed on 07/13/18 COMPARISON: 07/13/2018 | | | FINDINGS: Frontal view of the pelvis. There are hemiarthroplasty | | | changes on the right. There is no evidence for a component related | | | complication. There are expected operative changes in the soft | | | tissues. IMPRESSION - No radiographic evidence for an interval | | | complication. Dictated and Signed by: Marin Choudhury MD | | | Electronically signed: 10/02/2018 11:15 AM | | + + + + + | Procedure Note | + + | Jose, Rad Results In - 10/02/2018 11:18 AM PDT EXAM:XR HIP RIGHT 2-3 VIEWS | | | | CLINICAL HISTORY: right hip hemiarthroplasty performed on 07/13/18 | | | | COMPARISON: 07/13/2018 | | | | FINDINGS: Frontal view of the pelvis. There are hemiarthroplasty changes on the | | right. There is no evidence for a component related complication. There are | | expected operative changes in the soft tissues. | | | | IMPRESSION - | | | | No radiographic evidence for an interval complication. | | | | Dictated and Signed by: Marin Choudhury MD | | Electronically signed: 10/02/2018 11:15 AM | + + + +---------+ + + | Performing | Address | City/State/Zipcode | Phone Number | | Organization | | | | + +---------+ + + | [facility] | | | | + +---------+ + + documented in this encounter Visit Diagnoses + + | Diagnosis | + + | Right hip pain Pain in joint, pelvic region and thigh | + + | Status post hip surgery | + + documented in this encounter"
--- OUTSIDE RECORDS SUMMARY | ~2019-06-13 | XMS | Encounter Summary ---
Demographics + + + | Address | [address] | | | [place] [address] | + + + | Home Phone | | + + + | Preferred Language | Unknown | + + + | Marital Status | | + + + | Restorationism Affiliation | [id number] | + + + | Race | Unknown | + + + | Ethnic Group | Unknown | + + + Author + + + | Author | [facility] | | | and [place] | + + + | Organization | [facility] | | | and [place] | + + + | Address | Unknown | + + + | Phone | Unavailable | + + + Support + + +---------+ + | Name | Relationship | Address | Phone | + + +---------+ + | Sade Beckwith | ECON | Unknown | | + + +---------+ + | Yurigracie Red) | ECON | Unknown | | | Kalpesh | | | | + + +---------+ + Care Team Providers + +------+ + | Care Heater Planer Operator Name | Role | Phone | + +------+ + | Mike Saucedo MD | PCP | | + +------+ + Reason for Referral Diagnostic/Screening (Routine) +--------+--------+ + + + + | Status | Reason | Specialty | Diagnoses / | Referred By | Referred To | | | | | Procedures | Contact | Contact | +--------+--------+ + + + + | Closed | | Radiology | Diagnoses | | [address] | | | | | Pulmonary | [place], | [place] | | | | | nodules | Jenna B, | [place], | | | | | Procedures | MD [address] | [place] [address] | | | | | CT Chest wo | [address] | Phone: | | | | | Contrast | [place], | [phone] | | | | | | [place] [address] | Fax: | | | | | | | [phone] | +--------+--------+ + + + + Reason for Visit + + + | Reason | Comments | + + + | Follow-up | | + + + Encounter Details +--------+---------+ + + + | Date | Type | Department | Care Team | Description | +--------+---------+ + + + | 06/04/ | Office | [facility] | [place], | Chronic cough | | 2013 | Visit | PULMONARY [address] | Jenna George MD | (Primary Dx); | | | | [place], | | Obstructive chronic | | | | [place] [address] | | bronchitis ([facility]); | | | | [phone] | | Chronic rhinitis; | | | | | | Bronchiectasis | | | | | | ([facility]); GERD | | | | | | (gastroesophageal | | | | | | reflux disease); | | | | | | Pulmonary nodules; | | | | | | History of breast | | | | | | cancer | +--------+---------+ + + + Social History + + + +--------+ + | Tobacco Use | Types | Packs/Day | Years | Date | | | | | Used | | + + + +--------+ + | Former Smoker | Cigarettes | 0.7 | 40 | Quit: 05/06/2009 | + + + +--------+ + + + +---------+ + | Alcohol Use | Drinks/Week | oz/Week | Comments | + + +---------+ + | No | | | | + + +---------+ [...] + + documented as of this encounter Last Filed Vital Signs + + + + + | Vital Sign | Reading | Time Taken | Comments | + + + + + | Blood Pressure | 138/76 | 06/04/2014 1:55 PM | | | | | PST | | + + + + + | Pulse | 88 | 06/04/2014 1:55 PM | | | | | PST | | + + + + + | Temperature | - | - | | + + + + + | Respiratory Rate | - | - | | + + + + + | Oxygen Saturation | 98% | 06/04/2014 1:55 PM | | | | | PST | | + + + + + | Inhaled Oxygen | - | - | | | Concentration | | | | + + + + + | Weight | 62.6 kg (138 lb) | 06/04/2014 1:55 PM | | | | | PST | | + + + + + | Height | 165.1 cm (5' 5") | 06/04/2014 1:55 PM | | | | | PST | | + + + + + | Body Mass Index | 22.96 | 06/04/2014 1:55 PM | | | | | PST | | + + + + + documented in this encounter Patient Instructions Patient Instructions Jenna Maria MD - 06/04/2014 2:39 PM PSTStop Advair. Resume Spiriva one capsule inhaled once daily. Stay on nasal spray once daily. We will repeat your chest CT scan in about 6 months. Using the Acapella Choice (Green) People with some lung conditions, such as chronic bronchitis, emphysema, mycobacterial dise ase and bronchiectasis often produce a large amount of mucus. If the mucus is allowed to col lect in the airways, breathing may become difficult and infection may occur. The Acapella Ch oice airway clearance device is used to help remove mucus from the airways. The device may be used after taking a short-acting inhaled bronchodilator medication (as prescribed by you r doctor). The medication helps open the airways to make the technique more effective. How to Use the Acapella Choice 1. Assure proper setting of the dial on the end of the Acapella. This is the end opposite the mouthpiece. Your healthcare provider will set the dial when you get your Acapella. Ro castorena the end toward the + (plus) to increase resistance. Rotate the end toward (minus)to decrease resistance. 2. Sit up with good posture to use the Acapella. Sometimes we may have you lie in a postu ral drainage position to use the Acapella. Postural drainage positions include lying flat on your back, flat on your side and alternating sides. Your healthcare provider will show yo u postural drainage positions to use if these are recommended. 3. Take in a fairly deep breath and hold it for about [address] the Acapella mouthpiece in your mouth. Seal your lips tightly around the mouthpiec e. 5. Exhale as much as possible (but not to forcefully) through the mouthpiece. Keep your jonathan eks as firm as possible when you exhale. Try not to inhale through the device. 6. Repeat this maneuver for 10 to 12 breaths. Try to resist coughing during this phase. 7. After these 10 to 12 breaths, perform 3 to 4 huffs and then a big cough to bring up mucu s. 8. Orosco coughing is a type of coughing if you have trouble clearing your mucus. Take a matt th that is slightly deeper than normal. Use your stomach muscles to make a series of 3 rapid exhalations with the airway open, making a gganon, gagnon, gagnno sound. Follow this by controlle d diaphragmatic breathing and a deep cough if you feel mucus moving. 9. Repeat steps 1 through 7 for 15 minutes (or as prescribed by your healthcare provider). 10. Your healthcare provider will tell you how many times a day to use the Acapella. If y ou use a short-acting inhaled bronchodilator, use the Acapella 15 minutes after you inhale the medicine. This information has been approved by Dia Damon RN, MSN, AE-C (December 2008). documented in this encounter Progress Notes Jenna Maria MD - 06/04/2014 2:13 PM PSTFormatting of this note might be differe nt from the original. Pulmonary Follow Up HPI Shireen Posey is a 74 y.o. female patient of Mike Saucedo here today fo r follow up of chronic cough. At their last visit, we had ordered a chest CT scan and started her on Advair. She notes th at the Advair has helped her in terms of the cough, but in the morning she feels like her br eathing is more restricted. She also feels like she is more short of breath. Currently she can walk about 1/2- 3/4 mile on level ground without stopping. She did start on the nasal spray, which she does note pablo her nose. She does note that he r nasal drainage seems better. She occasionally feel a sense of tightness or drawing down on her sinuses. She did have her mammogram today, which was negative. Results of all tests were reviewed with her today on detail, though mammogram was reviewed by the radiologist before she arrived in clinic. 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 Rheumatic heart disease 1947 With murmur Rosacea Abnormal chest x-ray right and left consolidations or effusions GERD (gastroesophageal reflux disease) s/p fundoplication Atrial flutter (HCC) 2011 post operatively, treated with medication Gastroparesis 05/2012 Scoliosis Hiatal hernia repaired surgically Chronic sinusitis Carotid artery disease (HCC) carotid US 2009 50-69% mid L ICA stenosis Osteopenia 2007 Acute lateral meniscus tear of right knee 2007 Ruptured appendix 1960 Placenta previa Past Surgical History Past Surgical History Procedure Date Tonsillectomy and adenoidectomy 1948 Appendectomy 1960 Breast lumpectomy 1997 Right Knee arthroscopy 2008 Right Bronchoscopy 1992 Venous closure 2010 Gastric fundoplication 2011 with hiatal hernia repair Skin cancer excision 2012 Colonoscopy 2013 Bladder repair 2011 [place] Procedure Social History: History Social History Marital Status: Spouse Name: N/A Number of Children: N/A Years of Education: N/A 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 Social History Main Topics Smoking status: Former Smoker -- 0.7 packs/day for 40 years Types: Cigarettes Quit date: 05/06/2009 Smokeless tobacco: None Alcohol Use: No Drug Use: No Sexually Active: None Other Topics Concern None Social History N[place]ative [place]: her husbandGrew up: [place] Has previously lived in: [place] only[place] osure to toxic chemicals: DDT on crops and in well water[facility]posure to asbest os: noExposure to tuberculosis: no Has had a PPD or Quantiferon before: yes, negativeHas pet s at home: no Has ever owned birds: as a child, a pigeonOther animal exposures: not nowHobbi es: scrapbooking, yardwork, gardening, baking, reading Allergies: No Known Allergies Medications: Outpatient Encounter Prescriptions as of 06/04/2014 Medication Sig Dispense Refill Calcium Carb-Cholecalciferol (CALCIUM 1000 + D PO) Take by mouth Daily. cholecalciferol (VITAMIN D-3) 2000 UNITS TABS Take 2,000 Units by mouth Daily. flunisolide (NASALIDE) 25 MCG/ACT (0.025%) SOLN 2 sprays by Nasal route Daily. 1 Bottl e 11 fluticasone-salmeterol (ADVAIR DISKUS) 250-50 mcg/puff diskus inhaler Inhale 1 puff int o the lungs 2 times daily. 1 each 11 Objective BP 138/76 | Pulse 88 | Ht 1.651 m (5' 5") | Wt 62.596 kg (138 lb) | BMI 22.96 kg/m2 | SpO2 98% General Appearance: Alert, cooperative, no distress, appears stated age Data: Upper GI barium swallow was done on May 17, 2014 and was reviewed in clinic today. It s hows postoperative fundoplication changes with a narrowed but patent distal esophagus, mild distal esophageal dilatation, and delayed emptying. No reflux was seen. Chest CT scan was done on May 17, 2014 and was reviewed and interpreted in clinic today . It shows two pulmonary nodules, measuring 2.5 and 5.8 mm in size. There is bibasilar, righ t greater than left bronchiectasis, with some evidence of atelectasis or mucous plugging in these areas. There is some emphysema seen, and some minimal middle lobe fibrotic change. The re is an area of distortion in the right breast. Right sided digital mammography was done prior to clinic today and was reviewed in clinic t claudia. It shows what was thought to be consistent with an old scar from her prior breast canc er. Immunization History Administered Date(s) Administered PNEUMOCOCCAL POLYSACCHARIDE 23-VALENT (PPSV23) 07/22/1992, 07/22/2010 TETANUS TOXOID ABSORBED, (ADOL/ADULT) 07/22/1995 TRIVALENT INFLUENZA, PRESERATIVE FREE (PED/ADOL/ADULT) 04/06/2014 ZOSTER, 1 DOSE (ADULT) 07/22/2010 Assessment 1. Chronic cough - Suspect this is a combination of bronchiectasis and chronic bronchitis r elated, as well as post nasal drip related. 2. Obstructive chronic bronchitis (HCC) - On Advair, with cough resolved cough, but notes m ore shortness of breath. We will try switching back to Spiriva from Advair and see if this w orks to improve the shortness of breath and if her cough remains stable. 3. Chronic rhinitis- This has resolved on flunisolide, which she notes makes her nose burn (though she can deal with this). Cough also resolved, so this may be the main factor. 4. Bronchiectasis (HCC) - Seen on CT scan, and pattern of distribution suggests related to prior reflux disease with right lower posterior most predominant. I suggested using an Acape lla valve for mucous clearance when needed. 5. GERD (gastroesophageal reflux disease) - No evidence of recurrence on upper GI barium sw allow. While this is not the best test, her symptoms predated her surgery and likely are rel ated as much to the lung damage caused by the refluxing as they are to the refluxing it self , and also to the post nasal drip. 6. Pulmonary nodules - 2 nodules seen that warrant follow up. Based on largest nodule, we w ill plan on follow up CT scan in about 6 months. 7. History of breast cancer - Findings seen on CT evaluated with digital mammography and fe lt to be consistent with scar. Plan 1.Stop Advair. 2.Start back on Spiriva once daily. 3.Continue on flunisolide spray once daily. 4. Plan for repeat chest CT scan in 6 months. 5. Use Acapella valve as needed for mucous clearance. 25 minutes were spent with Ms. Posey with greater than 50% spent in counseling and coor dination of care regarding her test results and management. She was advised to call if new pulmonary symptoms were to develop. Return to clinic in 6 months, or sooner with concerns. CC: Mike Saucedo Portions of this report were transcribed using voice recognition software. Every effort wa s made to ensure accuracy; however, inadvertent computerized beauty sales consultant errors may be pre sent. documented in t his encounter Plan of Treatment +--------+---------+ + + + | Date | Type | Specialty | Care Team | Description | +--------+---------+ + + + | 07/08/ | Office | Cardiology | Nannette Morrison, | | | 2018 | Visit | | MD [address] | | | | | | [place] | | | | | | [phone] | | | | | | | | +--------+---------+ + + + | 11/04/ | Office | Pulmonology | Sukhjinder, | | | 2019 | Visit | | Windy Aldrich, | | | | | | MD [address] | | | | | | [place] | | | | | | [place] [address] | | | | | | [phone] | | | | | | | | +--------+---------+ + + + documented as of this encounter Results CT Chest wo Contrast (11/10/2014 10:12 AM PDT) + + | Specimen | + + | | + + + + + | Narrative | Performed At | + + + | EXAM: CT CHEST WITH CONTRAST:11/10/2014 9:53 AM HISTORY: Follow | [facility] | | up nodules COMPARISON: Chest CT dated May 17, 2014. | [facility] | | TECHNIQUE: Axial images are obtained from thoracic inlet to [facility] | | abdomen without contrast. DOSE: DLP 92.34 mGy-cm FINDINGS: | - IMAGING | | Lungs: The 5.8 mm nodule in the left upper lobe is unchanged. The | | | adjacent somewhat groundglass parenchymal irregularity is also in | | | the left upper lobe are unchanged. There is a stable 2.9 mm nodule | | | in the anterior left upper lobe. There are no new left lung nodules. | | | There are several punctate nodules in the right lung. Several | | | were visible on the prior study. There are 2 new 2 mm nodules in | | | the right upper lobe on images 45 and 46. The 2.5 mm nodule in the | | | right lower lobe is unchanged. There is persistent bronchiectasis, | | | parenchymal irregularity, and opacity in the right lower lobe. This | | | is unchanged. There are new areas of probable mucous in the right | | | lower lobe airways. Mild bronchiectasis in left lower lobe. No | | | pleural effusions. Early fibrosis developing in the right middle | | | lobe. Emphysematous changes. Heart and mediastinum: Stable | | | mediastinal lymph nodes. Stable cardiac contour mild pericardial | | | thickening. No interval aneurysmal dilatation of the thoracic | | | aorta. Ectasia of the distal thoracic aorta. No interval | | | enlargement of the pulmonary arteries. There is a somewhat patulous | | | esophagus. There is material in the esophageal lumen. | | | Hyperattenuating material seen near the gastroesophageal junction | | | is probably post operative. Chest wall: Stable scar in the right | | | breast. Upper abdomen: Unremarkable noncontrast imaging of the | | | upper abdomen. Bones: Scoliosis and associated spondylosis. | | | There are no interval compression deformities or acute osseous | | | abnormalities. IMPRESSION - Stable left lung nodules and | | | nodular opacities. Stable right lower lobe nodule. Nonspecific | | | very small noncalcified nodules in the right upper lobe. Stable | | | right lower lobe pleural-parenchymal changes relating to | | | bronchiectasis and what currently is mucous plugging. Patulous | | | esophagus containing material. This may predispose to aspiration. | | | Recommend continued follow-up. Dictated and Signed by: Marin Crisostomo | | | MD Macey Electronically signed: 11/10/2014 12:13 PM | | + + + + + | Procedure Note | + + | Jose, Rad Results In - 11/10/2014 12:17 PM PDT EXAM: CT CHEST WITH CONTRAST:11/10/2014 | | 9:53 AMHISTORY: Follow up nodulesCOMPARISON: Chest CT dated May 17, 2014.TECHNIQUE: | | Axial images are obtained from thoracic inlet to upper abdomenwithout contrast.DOSE: DLP | | 92.34 mGy-cm FINDINGS:Lungs: The 5.8 mm nodule in the left upper lobe is unchanged. | | The adjacentsomewhat groundglass parenchymal irregularity is also in the left upper lobe | | areunchanged. There is a stable 2.9 mm nodule in the anterior left upper lobe. There | | are no new left lung nodules. There are several punctate nodules in theright lung. | | Several were visible on the prior study. There are 2 new 2 mmnodules in the right upper | | lobe on images 45 and 46. The 2.5 mm nodule in theright lower lobe is unchanged. | | There is persistent bronchiectasis, parenchymalirregularity, and opacity in the right | | lower lobe. This is unchanged. Thereare new areas of probable mucous in the right | | lower lobe airways. Mildbronchiectasis in left lower lobe. No pleural effusions. | | Early fibrosisdeveloping in the right middle lobe. Emphysematous changes.Heart and | | mediastinum: Stable mediastinal lymph nodes. Stable cardiac contourmild pericardial | | thickening. No interval aneurysmal dilatation of the thoracicaorta. Ectasia of the | | distal thoracic aorta. No interval enlargement of thepulmonary arteries. There is a | | somewhat patulous esophagus. There is materialin the esophageal lumen. | | Hyperattenuating material seen near thegastroesophageal junction is probably post | | operative.Chest wall: Stable scar in the right breast.Upper abdomen: Unremarkable | | noncontrast imaging of the upper abdomen.Bones: Scoliosis and associated spondylosis. | | There are no interval compressiondeformities or acute osseous abnormalities.IMPRESSION - | | Stable left lung nodules and nodular opacities.Stable right lower lobe | | nodule.Nonspecific very small noncalcified nodules in the right upper lobe.Stable right | | lower lobe pleural-parenchymal changes relating to bronchiectasisand what currently is | | mucous plugging.Patulous esophagus containing material. This may predispose to | | aspiration.Recommend continued follow-up.Dictated and Signed by: Marin Choudhury MD | | Electronically signed: 11/10/2014 12:13 PM | |aorta. Ectasia of the distal thoracic aorta. No interval enlargement of the | |pulmonary arteries. There is a somewhat patulous esophagus. There is material | |in the esophageal lumen. Hyperattenuating material seen near the | |gastroesophageal junction is probably post operative. | | | |Chest wall: Stable scar in the right breast. | | | |Upper abdomen: Unremarkable noncontrast imaging of the upper abdomen. | | | |Bones: Scoliosis and associated spondylosis. There are no interval compression | |deformities or acute osseous abnormalities. | | | |IMPRESSION - | | | |Stable left lung nodules and nodular opacities. | | | |Stable right lower lobe nodule. | | | |Nonspecific very small noncalcified nodules in the right upper lobe. | | | |Stable right lower lobe pleural-parenchymal changes relating to bronchiectasis | |and what currently is mucous plugging. | | | |Patulous esophagus containing material. This may predispose to aspiration. | | | |Recommend continued follow-up. | | | |Dictated and Signed by: Marin Choudhury MD | | Electronically signed: 11/10/2014 12:13 PM | + + + + + + + | Performing | Address | City/State/Zipcode | Phone Number | | Organization | | | | + + + + + | [facility] | [address] | [place] | [phone] | | [facility] | | [id number] | | | - IMAGING | | | | + + + + + documented in this encounter Visit Diagnoses + + | Diagnosis | + + | Chronic cough - Primary Cough | + + | Obstructive chronic bronchitis (HCC) Obstructive chronic bronchitis without | | exacerbation | + + | Chronic rhinitis | + + | Bronchiectasis (HCC) Bronchiectasis without acute exacerbation | + + | GERD (gastroesophageal reflux disease) Esophageal reflux | + + | Pulmonary nodules Other nonspecific abnormal finding of lung field | + + | History of breast cancer Personal history of malignant neoplasm of breast | + + documented in this encounter
--- OUTSIDE RECORDS SUMMARY | ~2019-06-13 | XMS | Encounter Summary ---
Demographics + + + | Address | [address] | | | [place] [address] | + + + | Home Phone | | + + + | Preferred Language | Unknown | + + + | Marital Status | | + + + | Bahai Affiliation | [id number] | + + + | Race | Unknown | + + + | Ethnic Group | Unknown | + + + Author + + + | Author | [facility] | | | and [place] | + + + | Organization | [facility] | | | and [place] | + + + | Address | Unknown | + + + | Phone | Unavailable | + + + Support + + +---------+ + | Name | Relationship | Address | Phone | + + +---------+ + | Sade Beckwith | ECON | Unknown | | + + +---------+ + | Brightwoodgracie Red) | ECON | Unknown | | | Kalpesh | | | | + + +---------+ + Care Team Providers + +------+ + | Care System Controller Name | Role | Phone | + +------+ + | Mike Saucedo MD | PCP | | + +------+ + Reason for Visit +--------+ + | Reason | Comments | +--------+ + | Cough | f/u Chronic cough | +--------+ + Encounter Details +--------+---------+ + + + | Date | Type | Department | Care Team | Description | +--------+---------+ + + + | 03/11/ | Office | [facility] | [place], | Obstructive chronic | | 2014 | Visit | PULMONARY [address] | Jenna George MD | bronchitis ([facility]); | | | | [place], | | Gastroesophageal | | | | [place] [address] | | reflux disease with | | | | [phone] | | esophagitis; | | | | | | Bronchiectasis | | | | | | ([facility]); Pulmonary | | | | | | nodules; Pulmonary | | | | | | hypertension due to | | | | | | left heart valvular | | | | | | disease ([facility]); Need | | | | | | for vaccination with | | | | | | 13-polyvalent | | | | | | pneumococcal | | | | | | conjugate vaccine | +--------+---------+ + + + Social History [...] + + + | Blood Pressure | 120/58 | 03/11/2015 11:07 AM | | | | | PDT | | + + + + + | Pulse | 71 | 03/11/2015 11:07 AM | | | | | PDT | | + + + + + | Temperature | - | - | | + + + + + | Respiratory Rate | 16 | 03/11/2015 11:07 AM | | | | | PDT | | + + + + + | Oxygen Saturation | 98% | 03/11/2015 11:07 AM | room air | | | | PDT | | + + + + + | Inhaled Oxygen | - | - | | | Concentration | | | | + + + + + | Weight | 64.4 kg (142 lb) | 03/11/2015 11:07 AM | | | | | PDT | | + + + + + | Height | 165.1 cm (5' 5") | 03/11/2015 11:07 AM | | | | | PDT | | + + + + + | Body Mass Index | 23.63 | 03/11/2015 11:07 AM | | | | | PDT | | + + + + + documented in this encounter Patient Instructions Patient Instructions Jenna Maria MD - 03/11/2015 11:41 AM PDTPulmonary hypertens ion due to left heart valvular disease [facility] Call the [facility] before you pick i t up to make sure they have a box available. [facility] Do the test on room air. Wear the finger probe through the night and then return the box for a download the next day. No changes today in you medications. Okay to stay off the ranitidine. documented in this encounter Progress Notes Jenna Maria MD - 03/11/2015 11:05 AM PDTFormatting of this note might be differe nt from the original. Pulmonary Follow Up HPI Shireen Posey is a 74 y.o. female patient of Mike Saucedo MD here today f or follow up of obstructive chronic bronchitis. At their last visit, we had her start an Acapella twice daily, angle the head of her bed, a nd start ranitidine daily at bedtime. She is currently on a regimen of Spiriva once daily. She is using the Acapella twice daily. She notes sometimes with the Acapella she does not really cough things up. She forgot to st art the ranitidine at bedtime. She returns today for routine follow up. She notes that she is hardly ever coughing at night anymore. During the daytime she thinks her cough is a lot less. She feels like the cough is tolerable to her at this point. He autoimmune labs were all negative. She is not noticing any heartburn or reflux. She has not noticed any heartburn or reflux si nce her surgery. She has some shortness of breath in the mornings when she hurries. She has to take a couple deep breaths. She has not been evaluated for nocturnal oxygen and does not use it. She started on lisinopril recently, but has not started taking this. Past Medical History Past Medical History Diagnosis [...] sinusitis Carotid artery disease (HCC) carotid US 2010 50-69% mid L ICA stenosis Osteopenia 2008 Acute lateral meniscus tear of right knee 2008 Ruptured appendix 1960 Placenta previa Bronchiectasis (HCC) Valvular heart disease Past Surgical History Past Surgical History Procedure Laterality Date Tonsillectomy and adenoidectomy 1949 Appendectomy 1960 Breast lumpectomy 1997 Right Knee arthroscopy 2007 Right Bronchoscopy 1992 Venous closure 2010 Gastric fundoplication 2012 with hiatal hernia repair Skin cancer excision 2013 Colonoscopy 2014 Bladder repair 2011 Coapitite Procedure Social History: History Social History Marital Status: Spouse Name: N/A Number of Children: N/A Years of Education: N/A 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 Social History Main Topics Smoking status: Former Smoker -- 0.70 packs/day for 40 years Types: Cigarettes Quit date: 05/06/2009 Smokeless tobacco: None Alcohol Use: No Drug Use: No Sexual Activity: None Other Topics Concern None Social History Narrative Lives: in [place] With: her Grew up: [place] previously lived in: [place] Exposure to toxic chemicals: DDT on crops and in well water, near to [facility] Exposure to asbestos: no Exposure to tuberculosis: no Has had a PPD or Quantiferon before: yes, negative Has pets at home: no Has ever owned birds: as a child, a pigeon Other animal exposures: not now Hobbies: scrapbooking, yardwork, gardening, baking, reading Allergies: No Known Allergies Medications: Outpatient Encounter Prescriptions as of 03/11/2015 Medication Sig Dispense Refill Calcium Carb-Cholecalciferol (CALCIUM 1000 + D PO) Take by mouth Daily. cholecalciferol (VITAMIN D-3) 2000 UNITS TABS Take 2,000 Units by mouth Daily. flunisolide (NASALIDE) 25 MCG/ACT (0.025%) SOLN 2 sprays by Nasal route Daily. 1 Bottle 11 lisinopril (PRINIVIL,ZESTRIL) 2.5 MG tablet Take 2.5 mg by mouth Daily. metroNIDAOLE (METROLOTION) 0.75 % LOTN Apply 1 Application topically 2 times daily. Misc. Devices (ACAPELLA) [facility] Dx: 494.0 NIGEL: 99 months Use as directed twice daily. 1 e ach 1 ranitidine (ZANTAC) 150 mg tablet Take 1 tablet by mouth nightly. 30 tablet 0 tiotropium (SPIRIVA HANDIHALER) 18 mcg inhalation capsule Inhale 1 capsule into the aaron gs Daily. 30 capsule 11 No facility-administered encounter medications on file as of 03/11/2015. Review of Systems: General: []Weight loss/gain (over 10 lbs) []Fever/chills/sweats []Night sweats EENT: []Hearing loss []Vision loss/change [x]Sinus congestion/nasal drainage [x]Nosebleeds [x]Hoarseness Cardiac: [x]Chest pain []Palpitations/heart racing []Swelling of legs/ankles []Waking up at night short of breath []Difficulty sleeping flat Gastrointestinal: []Nausea/vomiting []Difficulty swallowing []Heartburn/acid reflux []Loss of appetite []Abd ominal pain Urologic: []Blood in urine []Frequent urination at night []Burning/painful urination []Difficulty wit h urination Objective BP 120/58 mmHg | Pulse 71 | Resp 16 | Ht 1.651 m (5' 5") | Wt 64.411 kg (142 lb) | BMI 23.6 3 kg/m2 | SpO2 98% General Appearance: Alert, cooperative, no distress, appears stated age Head: Normocephalic, without obvious abnormality, atraumatic Eyes: PERRL, conjunctiva clear, no scleral icterus, EOM's intact Ears: Normal TM's, external auditory canals, normal acuity Nose: Nares normal, septum midline, mucosa edematous Mouth: No oral lesions or exudate Neck: Supple, symmetrical, no adenopathy Lungs: No accessory muscle use, breath sounds are diminished bilaterally with some squeak s, no wheezes, crackles or rhonchi Chest Wall: No deformity Heart: Regular rate and rhythm, soft systolic murmur, no rub or gallop Abdomen: Soft, non-tender, non-distended Extremities: No cyanosis, clubbing, or edema Pulses: Radial pulses 2+ and symmetric Skin: Warm and dry Lymph nodes: Cervical and supraclavicular nodes normal Data: Echocardiogram was performed on February 18, 2015 and results were reviewed in clinic today. It shows moderate to severe aortic insufficiency, normal LV systolic function, mild MD, LAE, a nd moderate pulmonary hypertension. Ref. Range 11/10/2014 13:17 Centromere B Autoantibody Latest Range: <1.0 AI <0.2 Chromatin Autoantibody Latest Range: <1.0 AI 0.2 Cyclic Citrullin Peptide Ab Latest Range: <20 Units <16 dsDNA Autoantibody Latest Range: <5 IU/mL 1 SORAYA-1 autoantibody IgG Latest Range: <1.0 AI <0.2 RIBOSOMAL P AB Latest Range: <1.0 AI <0.2 STORE CLERK CHECKER Autoantibody Latest Range: <1.0 AI <0.2 Scleroderma SCL-70 Latest Range: <1.0 AI <0.2 SM Autoantibody Latest Range: <1.0 AI <0.2 SMRNP Autoantibody Latest Range: <1.0 AI <0.2 Immunization History Administered Date(s) Administered INFLUENZA, TRIVALENT PRESERVATIVE FREE (PED/ADOL/ADULT) 04/06/2014 PNEUMOCOCCAL POLYSACCHARIDE 23-VALENT (PPSV23) 07/22/1992, 07/22/2010 TETANUS TOXOID ABSORBED, (ADOL/ADULT) 07/22/1995 ZOSTER, 1 DOSE (ADULT) 07/22/2010 Assessment ICD-9-CM 1. Obstructive chronic bronchitis (HCC) 491.20 On Spiriva once daily with fairly good sympt om control. Overnight oximetry, room air 2. Gastroesophageal reflux disease with esophagitis 530.11 S/p surgical repair with good sy mptom control with lifestyle modification. I would hold adding ranitidine. 3. Bronchiectasis (HCC) 494.0 Fairly mild. Improved with use of Acapella. I would continue. 4. Pulmonary nodules 793.19 Several stable, 2 new 2mm ones. Needs follow up CT scan 10/2015. 5. 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 We will also check ON oximetry. Overnight oximetry, room air 424.90 6. Need for vaccination with 13-polyvalent pneumococcal conjugate vaccine V03.82 Prevnar 13 given today in accordance with updated guidelines. Pneumococcal conjugate vaccine, IM Plan 1.Continue once daily Spiriva. 2.Continue lifestyle modification to prevent reflux. 3.Continue twice daily Acapella use. 4. Plan to repeat CT chest in October. 5. Check overnight oximetry on RA. 6. Prevnar 13 given today in accordance with updated guidelines. She was advised to call if new pulmonary symptoms were to develop. Return to clinic in 7 months, or sooner with concerns. CC: Mike Saucedo MD Portions of this report were transcribed using voice recognition software. Every effort wa s made to ensure accuracy; however, inadvertent computerized flavor tank tender errors may be pre sent. documented in [...] GAMINO | | | | | | [id number] | | | | | | | | +--------+---------+ + + + | 11/04/ | Office | Pulmonology | Sukhjinder, | | | 2019 | Visit | | Windy Aldrich, | | | | | | MD [address] | | | | | | [place] | | | | | | [place] [address] | | | | | | [phone] | | | | | | | | +--------+---------+ + + + + + +--------+ + + | Name | Type | Priori | Associated Diagnoses | Order Schedule | | | | ty | | | + + +--------+ + + | Overnight oximetry, | Respiratory | Routin | Pulmonary | Expected: | | room air | Care | e | hypertension due to | 03/11/2015, Expires: | | | | | left heart valvular | 03/10/2016 | | | | | disease (HCC) | | | | | | Obstructive chronic | | | | | | bronchitis (HCC) | | + + +--------+ + + documented as of this encounter Visit Diagnoses + + | Diagnosis | + + | Obstructive chronic bronchitis (HCC) Obstructive chronic bronchitis without | | exacerbation | + + | Gastroesophageal reflux disease with esophagitis | + + | Bronchiectasis (HCC) Bronchiectasis without acute exacerbation | + + | Pulmonary nodules Other nonspecific abnormal finding of lung field | + + | 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
--- OUTSIDE RECORDS SUMMARY | ~2019-06-13 | XMS | Clinical Summary ---
Demographics + + + | Address | [address] | | | [place] [address] | + + + | Home Phone | | + + + | Preferred Language | Unknown | + + + | Marital Status | | + + + | Anabaptism Affiliation | CAT | + + + | Race | White | + + + | Ethnic Group | Not or | + + + Author + + + | Author | [facility] | + + + | Organization | [facility] | + + + | Address | Unknown | + + + | Phone | Unavailable | + + + Support + + + + + | Name | Relationship | Address | Phone | + + + + + | Jer Posey | JENAE | [address] [place] | | | | | [address] [place], [place] | | | | | [address] | | + + + + + Care Team Providers + +------+ + | Care Marine Equipment Design Engineer Name | Role | Phone | + +------+ + | Mike Sauecdo MD | PCP | | + +------+ + Source Comments BLAIRE is fully live on both [facility] and [facility] Allergies No Known Allergies Medications + + + +---------+------+------+-------+ | Medication | Sig | Dispensed | Refills | Star | End | Statu | | | | | | t | Date | s | | | | | | Date | | | + + + +---------+------+------+-------+ | ASPIRIN ORAL | Take by mouth once | | 0 | | | Activ | | | daily. | | | | | e | + + + +---------+------+------+-------+ Active Problems + + + | Problem | Noted Date | + + + | Hernia, hiatal | 05/16/2011 | + + + Social History + + + +--------+ + | Tobacco Use | Types | Packs/Day | Years | Date | | | | | Used | | + + + +--------+ + | Former Smoker | Cigarettes | 0.5 | 44 | Quit: 10/23/2005 | + + + +--------+ + + [...] recent travel history available. | + + Last Filed Vital Signs + + + + + | Vital Sign | Reading | Time Taken | Comments | + + + + + | Blood Pressure | 161/75 | 11/21/2011 12:08 PM | | | | | PDT | | + + + + + | Pulse | 59 | 11/21/2011 12:08 PM | | | | | PDT | | + + + + + | Temperature | 36.6 C (97.8 F) | 11/21/2011 12:08 PM | | | | | PDT | | + + + + + | Respiratory Rate | 16 | 11/21/2011 12:08 PM | | | | | PDT | | + + + + + | Oxygen Saturation | 95% | 10/28/2011 11:00 AM | IS used | | | | PDT | | + + + + + | Inhaled Oxygen | - | - | | | Concentration | | | | + + + + + | Weight | 63 kg (139 lb) | 11/21/2011 12:08 PM | | | | | PDT | | + + + + + | Height | 165.1 cm (5' 5") | 11/21/2011 12:08 PM | | | | | PDT | | + + + + + | Body Mass Index | 23.13 | 11/21/2011 12:08 PM | | | | | PDT | | + + + + + Plan of Treatment + + + + + | Health Maintenance | Due Date | Last Done | Comments | + + + + + | Pneumococcal | | | | | vaccination (1 of 2 | 4 | | | | - PCV13) | | | | + + + + + | Influenza (Flu) | | | | | vaccination (#1) | 9 | | | + + + + + Implants + +------+------+ +--------+--------+--------+ | Implanted | Type | Area | Manufacture | Device | Shelf | Model | | | | | r | | Expira | / | | | | | | Identi | tion | Serial | | | | | | fier | Date | / Lot | + +------+------+ +--------+--------+--------+ | Amidon Pledget Ptfe 2.5cm X | | | CR BARD | | 07/21/ | [id number] | | 15cm - [id number]: Qty: | | | PERIPHERAL | | 2016 | / | | 1 on 10/26/2011 at [facility] | | | VASCULAR | | | /[id number] | | INPATIENT REV LOC | | | | | | 143 | + +------+------+ +--------+--------+--------+ Results Not on filefrom Last 3 Months Insurance + +--------+ +--------+ + +--------+ | Payer | Benefi | Subscriber | Effect | Phone | Address | Type | | | t Plan | ID | silke | | | | | | / | | Dates | | | | | | Group | | | | | | + +--------+ +--------+ + +--------+ | MEDICARE | MEDICA | xxxxxxxxxx | 11/20/19 | [phone] | [address] | | | RE A & | | 05-Pre | [phone] | [address] | | | B | | sent | | [place], [place] | | | | | | | | [address] | | + +--------+ +--------+ + +--------+ | COMMERCIAL | INDIVI | [id number] | 07/22/19 | | | Indemn | | INDIVIDUAL | DUAL | | 11-Pre | | | ity | | | COMMER | | sent | | | | | | CIAL | | | | | | + +--------+ +--------+ + +--------+ + +--------+ +--------+ + + | Guarantor Name | Accoun | Relation to | Date | Phone | Billing Address | | | t Type | Patient | of | | | | | | | | | | + +--------+ +--------+ + + | Shireen Posey | Person | Self | [birth year] | [address] | | | al/Fam | | 1940 | [phone] | [place] [address] | | | zayda | | | 9 (Home) | | + +--------+ +--------+ + + Advance Directives + + + + + | Code Status | Date | Date | Comments | | | Activated | Inactivated | | + + + + + | Full Code | 10/26/2011 | 10/28/2011 | | | | 7:48 PM | 6:46 PM | | + + + + + + + + +---+ | | | | | + + + +---+ | Full Code | 10/26/2011 | 10/26/2011 | | | | 7:35 AM | 7:35 PM | | + + + +---+
--- OUTSIDE RECORDS SUMMARY | ~2019-06-13 | XMS | Encounter Summary ---
Demographics + + + | Address | [address] | | | [place] [address] | + + + | Home Phone | | + + + | Preferred Language | Unknown | + + + | Marital Status | | + + + | Latter-Day Affiliation | 1041 | + + + | Race | Unknown | + + + | Ethnic Group | Unknown | + + + Author + + + | Author | [facility] | | | and [place] | + + + | Organization | [facility] | | | and [...] Team Providers + +------+ + | Care Boiler/Chiller Operator Name | Role | Phone | + +------+ + | Mike Saucedo MD | PCP | | + +------+ + Encounter Details +--------+ + + + + | Date | Type | Department | Care Team | Description | +--------+ + + + + | 12/15/ | Orders Only | [facility] [place] | [place], | Cough (Primary Dx) | | 2013 | | PULMONARY [address] | Jenna George MD | | | | | [place], | | | | | | [place] [address] | | | | | | [phone] | | | +--------+ + + + [...] [place] | | | | | | [address] | | | | | | | | +--------+---------+ + + + | 11/04/ | Office | Pulmonology | Sukhjinder, | | | 2019 | Visit | | Windy Aldrich, | | | | | | [address] | | | | | | [place] | | | | | | [place] [address] | | | | | | [phone] | | | | | | | | +--------+---------+ + + + documented as of this encounter Results PFT PULMONARY FUNCTION TESTING ORDERS Lung volumes?: Yes; Diffusion (DLCO)?: Yes ( 4 3:18 PM PDT) + + + | Narrative | Performed At | + + + | Jenna Maria MD 05/08/2014 15:18 PULMONARY | | | FUNCTION TESTING METHOD: Spirometry was obtained pre | | | administration of inhaled bronchodilator only. Lung volumes were | | | obtained by body plethysmography. Diffusion capacity was obtained by | | | single breath method and was not corrected for a measured | | | hemoglobin. ATS standards were not met on lung volume testing. | | | SPIROMETRY: FVC was normal at 2.69 L or 94% of predicted. FEV1 was | | | normal at 1.81 L or 85% of predicted. FEV1/FVC ratio was reduced at | | | 67%. LUNG VOLUMES: Total lung capacity was markedly elevated at | | | 12.11 L or 236% of predicted. Residual volume was markedly elevated | | | at 9.29 L or 401% of predicted. RV/TLC ratio was elevated at 77% or | | | 168 % of predicted. DIFFUSION CAPACITY: Diffusion capacity was | | | mildly reduced at 16.6 mL/mmHg per minute or 73% of predicted and | | | was not corrected for a measured hemoglobin. IMPRESSION: Spirometry | | | is consistent with mild obstructive physiology based on reduction | | | in FEV1/FVC ratio only. Lung volume testing is consistent with | | | obstructive physiology, but the patient had a difficult time | | | performing this, and results seem inaccurate and should be | | | interpreted with caution. Diffusion capacity is mildly reduced and | | | is not corrected for measured hemoglobin. Electronically signed | | | by: Jenna Maria MD 05/08/2014 15:11 [facility] | | | [facility] CC: Mike Saucedo | | + + + + + | Procedure Note | + + | Jenna Maria MD - 05/08/2014 3:11 PM PDT PULMONARY FUNCTION TESTING | | METHOD: Spirometry was obtained pre administration of inhaled bronchodilator only. Lung | | volumes were obtained by body plethysmography. Diffusion capacity was obtained by single | | breath method and was not corrected for a measured hemoglobin. ATS standards were not | | met on lung volume testing. SPIROMETRY: FVC was normal at 2.69 L or 94% of predicted. | | FEV1 was normal at 1.81 L or 85% of predicted. FEV1/FVC ratio was reduced at 67%. LUNG | | VOLUMES: Total lung capacity was markedly elevated at 12.11 L or 236% of predicted. | | Residual volume was markedly elevated at 9.29 L or 401% of predicted. RV/TLC ratio was | | elevated at 77% or 168 % of predicted. DIFFUSION CAPACITY: Diffusion capacity was mildly | | reduced at 16.6 mL/mmHg per minute or 73% of predicted and was not corrected for a | | measured hemoglobin.IMPRESSION: Spirometry is consistent with mild obstructive | | physiology based on reduction in FEV1/FVC ratio only. Lung volume testing is consistent | | with obstructive physiology, but the patient had a difficult time performing this, and | | results seem inaccurate and should be interpreted with caution. Diffusion capacity is | | mildly reduced and is not corrected for measured hemoglobin.Electronically signed by: | | Jenna Maria MD [facility]08[facility]2014 [facility]11[facility] | | Mike Saucedo | + + XR Chest PA and Lateral (05/06/2014 9:10 AM PDT) + + | Specimen | + + | | + + + + + | Narrative | Performed At | + + + | XR CHEST PA AND LATERAL 05/06/2014 9:01 AM HISTORY: COPD. | MISCELANIOUS | | COMPARISON: None. Findings: The heart is at the upper limits of | LAB | | normal size. Aorta is tortuous. There is atherosclerosis of the | | | abdominal aorta. Pulmonary vasculature and mediastinum are normal. | | | There is hyperinflation of the bilateral lungs consistent with the | | | patient's history of COPD. Mild scarring is in the right lower lobe. A | | | small nodular density is visualized in the right lung base that | | | could present a nipple shadow. There is moderate S-shaped scoliosis | | | of the thoracolumbar spine with moderate spondylosis. Diffuse | | | osteopenia is noted. IMPRESSION - Hyperinflation of lungs | | | consistent with history of COPD. Nodular density in right lung | | | base that could represent a nipple shadow. If clinically indicated, a | | | repeat chest x-ray can be obtained after placement of nipple | | | markers. Dictated and Signed by: Thong Renae MD | | | Electronically signed: 05/06/2014 9:22 AM | | + + + + + | Procedure Note | + + | Jose, Rad Results In - 05/06/2014 9:25 AM PDT XR CHEST PA AND LATERAL 05/06/2014 9:01 | | AMHISTORY: COPD.COMPARISON: None.Findings:The heart is at the upper limits of normal | | size. Aorta is tortuous. There isatherosclerosis of the abdominal aorta. Pulmonary | | vasculature and mediastinumare normal. There is hyperinflation of the bilateral lungs | | consistent with thepatient's history of COPD. Mild scarring is in the right lower lobe. | | A smallnodular density is visualized in the right lung base that could present a | | nippleshadow. There is moderate S-shaped scoliosis of the thoracolumbar spine | | withmoderate spondylosis. Diffuse osteopenia is noted.IMPRESSION -Hyperinflation of | | lungs consistent with history of COPD.Nodular density in right lung base that could | | represent a nipple shadow. Ifclinically indicated, a repeat chest x-ray can be obtained | | after placement ofnipple markers. Dictated and Signed by: Thong Renae MD | | Electronically signed: 05/06/2014 9:22 AM | |shadow. There is moderate S-shaped scoliosis of the thoracolumbar spine with | |moderate spondylosis. Diffuse osteopenia is noted. | | | |IMPRESSION - | |Hyperinflation of lungs consistent with history of COPD. | | | |Nodular density in right lung base that could represent a nipple shadow. If | |clinically indicated, a repeat chest x-ray can be obtained after placement of | |nipple markers. | | | | | |Dictated and Signed by: Thong Renae MD | | Electronically signed: 05/06/2014 9:22 AM | + + + +---------+ + + | Performing | Address | City/State/Zipcode | Phone Number | | Organization | | | | + +---------+ + + | [facility] | | | [phone] | + +---------+ + + | [facility] | | | [phone] | + +---------+ + + documented in this encounter Visit Diagnoses + + | Diagnosis | + + | Cough - Primary | + + documented in this encounter"
--- OUTSIDE RECORDS SUMMARY | ~2019-06-13 | XMS | Encounter Summary ---
Demographics + + + | Address | [address] | | | [place] [address] | + + + | Home Phone | | + + + | Preferred Language | Unknown | + + + | Marital Status | | + + + | Hinduism Affiliation | 1041 | + + + | Race | Unknown | + + + | Ethnic Group | Unknown | + + + Author + + + | Author | [facility] | | | and [place] | + + + | Organization | [facility] | | | [...] Team Providers + +------+ + | Care Hydrostatic Tester Name | Role | Phone | + +------+ + | Mike Saucedo MD | PCP | | + +------+ + Encounter Details +--------+ + + + + | Date | Type | Department | Care Team | Description | +--------+ + + + + | 12/05/ | Orders Only | [facility] | Maksim Mckenzie | | | 2019 | | CONVERSION [address] | MD [place] [address] | | | [address] | [place], [facility] | | | | | [place], [place] | [place], [place] | | | | | [address] | [address] | | | | | [phone] | | | +--------+ + + + [...] | 2019 | Visit | | MD [address] | | | | | | [place], [place] | | | | | | [address] | | | | | | | | +--------+---------+ + + + | 11/04/ | Office | Pulmonology | Sukhjinder, | | | 2019 | Visit | | Windy Aldrich, | | | | | | MD [address] | | | | | | [place], | | | | | | [place] [address] | | | | | | [phone] | | | | | | | | +--------+---------+ + + + documented as of this encounter Procedures + +--------+ + + + | Procedure Name | Priori | Date/Time | Associated Diagnosis | Comments | | | ty | | | | + +--------+ + + + | ECHO INTERPRETATION | Routin | 12/05/2018 | | Results for this | | OF OUTSIDE FILMS | e | 11:53 AM | | procedure are in the | | | | PDT | | results section. | + +--------+ + + + documented in this encounter Results ECHO Interpretation of Outside Films (12/05/2018 11:53 AM PDT) + + | Specimen | + + | | + + + + + | Impressions | Performed At | + + + | 1. The left ventricle is normal ins ize, wall thickness and systolic | | | function EF 60-65%. 2. The right ventricle is normal in size and | | | function. 3. There is moderate aortic regurgitation. 4. Mild | | | tricuspid regurgitation and mild pulmonary hypertension. 5. There is | | | no pericardial effusion. | | + + + + + + | Narrative | Performed At | + + + | Patient Name: SHIREEN MARTINEZ Date of : 1940 | | | Performing Physician: Nannette Morrison | | | | | | INDICATIONS Aortic insufficiency CONCLUSIONS | | | 1. The left ventricle is normal ins ize, wall thickness | | | and systolic function EF 60-65%. 2. The right ventricle is normal in | | | size and function. 3. There is moderate aortic regurgitation. 4. | | | Mild tricuspid regurgitation and mild pulmonary hypertension. 5. | | | There is no pericardial effusion. FINDINGS -------- ECG rhythm: | | | Sinus rhythm. Study: A 2-dimensional transthoracic echocardiogram | | | with m-mode, spectral and color flow Doppler was perfomed. Study: | | | This was a technically adequate study. Left Ventricle: Overall left | | | ventricular systolic function is normal with, an EF between 60 - 65 %. | | | Left Ventricle: The left ventricle cavity size is normal. Left | | | Ventricle: Left ventricular wall thickness is normal. Left Ventricle: | | | No regional wall motion abnormalities. Left Ventricle: Pseudonormal | | | LV diastolic filling pattern, consistent with elevated LA pressure and | | | moderate dysfunction (Grade II). Right Ventricle: The right | | | ventricle is normal in size and function. Left Atrium: The left | | | atrium is mildly enlarged. Right Atrium: The right atrium is mildly | | | enlarged. Aortic Valve: The aortic valve appears to be trileaflet. | | | Aortic Valve: The aortic valve is mildly calcified. Aortic Valve: | | | There is moderate aortic regurgitation. Aortic Valve: Mild aortic | | | stenosis with peak/mean pressure gradient of 11.54mmHg / 6.84mmHg, the | | | aortic valve area by continuity equation is 1.9cm . Aortic | | | Valve: Aortic valve is mildly thickened. Aortic Valve: The aortic | | | pressure half-time by doppler is 386ms. Mitral Valve: Mitral valve is | | | thickened. Mitral Valve: Mild mitral regurgitation is present. | | | Mitral Valve: Mild mitral annular calcification present. Tricuspid | | | Valve: The tricuspid valve appears structurally normal. Tricuspid | | | Valve: Mild tricuspid regurgitation present. Tricuspid Valve: There | | | is mild pulmonary hypertension. Tricuspid Valve: The right | | | ventricular systolic pressure (pulmonary artery systolic pressure), as | | | measured by Doppler, is 35.32mmHg. Pulmonic Valve: The pulmonic | | | valve was not well visualized. Pericardium: There is no pericardial | | | effusion. Pericardium: No pleural effusion seen. IVC/Hepatic Veins: | | | The IVC is normal size (1.5-2.5cm) and collapses >50% with sniff, | | | consistent with central venous pressures of 5-10mmHg. Aorta: The | | | aortic root, ascending aorta and aortic arch are normal in size. | | | MEASUREMENTS Ao asc: 3.46 cm Ao Diam: 3.61 cm | | | Ao sinus: 3.[address] junct: 3.40 cm IVC: 1.51 cm LA | | | Major: 5.79 cm EDV(Teich): 107.19 ml IVSd: 0.78 cm LVIDd: | | | 4.79 cm LVPWd: 0.99 cm LVOT Diam: 2.01 cm %FS: 30.28 % | | | EF(Teich): 57.55 % ESV(Teich): 45.49 ml LVIDs: 3.34 cm | | | SV(Teich): 61.69 ml RV Major: 7.12 cm RV Minor: 3.42 cm RV | | | Minor: 2.39 cm LVEF MOD A2C: 58.36 % SV MOD A2C: 38.77 ml | | | LVEF MOD A4C: 54.50 % SV MOD A4C: 41.77 ml EF Biplane: | | | 55.86 % LVEDV MOD BP: 71.87 ml LVESV MOD BP: 31.71 ml LVEDV | | | MOD A2C: 66.44 ml LVLd A2C: 7.33 cm LVEDV MOD A4C: 76.63 ml | | | LVLd A4C: 7.19 cm LVESV MOD A2C: 27.66 ml LVLs A2C: 6.17 | | | cm LVESV MOD A4C: 34.86 ml LVLs A4C: 5.90 cm LAESV(A-L): | | | 69.14 ml LAESV Index (A-L): 41.90 ml/m2 LAAs A2C: 18.80 cm2 | | | LAESV A-L A2C: 53.18 ml LAESV MOD A2C: 50.94 ml LALs A2C: | | | 5.64 cm LAAs A4C: 24.44 cm2 LAESV A-L A4C: 84.58 ml LAESV MOD | | | A4C: 81.88 ml LALs A4C: 5.99 cm RAAs: 19.01 cm2 RAESV | | | A-L: 54.56 ml RAESV MOD: 53.84 ml RALs: 5.62 cm TAPSE: | | | 2.81 cm AR Dec Carroll: 3.11 m/s2 AR Dec Time: 1329.52 ms AR | | | maxP.38 mmHg AR PHT: 385.56 ms AR Vmax: 4.13 m/s AV | | | Env.Ti: 327.85 ms AV maxP.53 mmHg AV meanP.83 mmHg | | | AV Vmax: 1.69 m/s AV Vmean: 1.24 m/s AV VTI: 40.95 cm | | | TOSIN Vmax: 1.90 cm2 TOSIN (VTI): 1.88 cm2 AVAI Vmax: 0.00 | | | cm2/m2 AVAI (VTI): 0.00 cm2/m2 LVOT Env.Ti: 339.16 ms LVOT | | | maxP.08 mmHg LVOT meanP.21 mmHg LVSI Dopp: 46.75 | | | ml/m2 LVSV Dopp: 77.14 ml LVOT Vmax: 1.01 m/s LVOT Vmean: | | | 0.71 m/s LVOT VTI: 24.11 cm MV A Refugio: 1.01 m/s MV Dec Carroll: | | | 5.24 m/s2 MV DecT: 234.73 ms MV E Refguio: 1.23 m/s MV E/A | | | Ratio: 1.20 E/E' Sept: 30.77 E' Lat: 0.04 m/s E' Sept: | | | 0.03 m/s MV maxP.12 mmHg MV meanP.27 mmHg MV Vmax: | | | 1.23 m/s MV Vmean: 0.68 m/s MV VTI: 36.36 cm MVA (VTI): | | | 2.12 cm2 RAP: 5 mmHg RV S': 0.15 m/s RVSP: 35.31 mmHg TR | | | maxP.31 mmHg TR Vmax: 2.75 m/s Cross Roller: | | | Authenticated by: Nannette Morrison Report Date/Time: 12-05-2018 | | | 12:49:39 | | + + + + + | Procedure Note | + + | Jose, Rad Conversion - 03/12/2019 12:39 PM PDT Patient Name: Burton MARTINEZ | | of : 1940 Performing Physician: Nannette | | [facility] INDICATIONS------ | | -----Aortic insufficiency CONCLUSIONS 1. The left ventricle is normal ins ize, | | wall thickness and systolic function EF 60-65%.2. The right ventricle is normal in size | | and function.3. There is moderate aortic regurgitation.4. Mild tricuspid regurgitation | | and mild pulmonary hypertension.5. There is no pericardial effusion. FINDINGS--------ECG | | rhythm: Sinus rhythm.Study: A 2-dimensional transthoracic echocardiogram with m-mode, | | spectral and color flow Doppler was perfomed.Study: This was a technically adequate | | study.Left Ventricle: Overall left ventricular systolic function is normal with, an EF | | between 60 - 65 %.Left Ventricle: The left ventricle cavity size is normal.Left | | Ventricle: Left ventricular wall thickness is normal.Left Ventricle: No regional wall | | motion abnormalities.Left Ventricle: Pseudonormal LV diastolic filling pattern, | | consistent with elevated LA pressure and moderate dysfunction (Grade II).Right | | Ventricle: The right ventricle is normal in size and function.Left Atrium: The left | | atrium is mildly enlarged.Right Atrium: The right atrium is mildly enlarged.Aortic | | Valve: The aortic valve appears to be trileaflet.Aortic Valve: The aortic valve is | | mildly calcified.Aortic Valve: There is moderate aortic regurgitation.Aortic Valve: Mild | | aortic stenosis with peak/mean pressure gradient of 11.54mmHg / 6.84mmHg, the aortic | | valve area by continuity equation is 1.9cm .Aortic Valve: Aortic valve is mildly | | thickened.Aortic Valve: The aortic pressure half-time by doppler is 386ms.Mitral Valve: | | Mitral valve is thickened.Mitral Valve: Mild mitral regurgitation is present.Mitral | | Valve: Mild mitral annular calcification present.Tricuspid Valve: The tricuspid valve | | appears structurally normal.Tricuspid Valve: Mild tricuspid regurgitation | | present.Tricuspid Valve: There is mild pulmonary hypertension.Tricuspid Valve: The right | | ventricular systolic pressure (pulmonary artery systolic pressure), as measured by | | Doppler, is 35.32mmHg.Pulmonic Valve: The pulmonic valve was not well | | visualized.Pericardium: There is no pericardial effusion.Pericardium: No pleural | | effusion seen.IVC/Hepatic Veins: The IVC is normal size (1.5-2.5cm) and collapses >50% | | with sniff, consistent with central venous pressures of 5-10mmHg.Aorta: The aortic root, | | ascending aorta and aortic arch are normal in size. MEASUREMENTS Ao asc: | | 3.46 cmAo Diam: 3.61 cmAo sinus: 3.[address] junct: 3.40 cmIVC: 1.51 cmLA | | Major: 5.79 cmEDV(Teich): 107.19 mlIVSd: 0.78 cmLVIDd: 4.79 cmLVPWd: 0.99 | | cmLVOT Diam: 2.01 cm%FS: 30.28 %EF(Teich): 57.55 %ESV(Teich): 45.49 mlLVIDs: | | 3.34 cmSV(Teich): 61.69 mlRV Major: 7.12 cmRV Minor: 3.42 cmRV Minor: 2.39 | | cmLVEF MOD A2C: 58.36 %SV MOD A2C: 38.77 mlLVEF MOD A4C: 54.50 %SV MOD A4C: | | 41.77 mlEF Biplane: 55.86 %LVEDV MOD BP: 71.87 mlLVESV MOD BP: 31.71 mlLVEDV MOD | | A2C: 66.44 mlLVLd A2C: 7.33 cmLVEDV MOD A4C: 76.63 mlLVLd A4C: 7.19 cmLVESV MOD | | A2C: 27.66 mlLVLs A2C: 6.17 cmLVESV MOD A4C: 34.86 mlLVLs A4C: 5.90 | | cmLAESV(A-L): 69.14 mlLAESV Index (A-L): 41.90 ml/m2LAAs A2C: 18.80 [id number] A-L | | A2C: 53.18 mlLAESV MOD A2C: 50.94 mlLALs A2C: 5.64 cmLAAs A4C: 24.44 [id number] | | A-L A4C: 84.58 mlLAESV MOD A4C: 81.88 mlLALs A4C: 5.99 cmRAAs: 19.01 [id number] | | A-L: 54.56 mlRAESV MOD: 53.84 mlRALs: 5.62 cmTAPSE: 2.81 cmAR Dec Carroll: 3.11 | | m/s2AR Dec Time: 1329.52 msAR maxP.38 mmHgAR PHT: 385.56 msAR Vmax: 4.13 | | m/Ricci Env.Ti: 327.85 msAV maxP.53 mmHgAV meanP.83 mmHgAV Vmax: 1.69 | | m/Ricci Vmean: 1.24 m/Ricci VTI: 40.95 cmAVA Vmax: 1.90 cm2AVA (VTI): 1.88 [id number] | | Vmax: 0.00 cm2/m2AVAI (VTI): 0.00 cm2/m2LVOT Env.Ti: 339.16 msLVOT maxP.08 | | mmHgLVOT meanP.21 mmHgLVSI Dopp: 46.75 ml/m2LVSV Dopp: 77.14 mlLVOT Vmax: | | 1.01 m/sLVOT Vmean: 0.71 m/sLVOT VTI: 24.11 cmMV A Refugio: 1.01 m/sMV Dec Carroll: | | 5.24 m/s2MV DecT: 234.73 msMV E Refugio: 1.23 m/sMV E/A Ratio: 1.20E/E' Sept: | | 30.77E' Lat: 0.04 m/sE' Sept: 0.03 m/sMV maxP.12 mmHgMV meanP.27 mmHgMV | | Vmax: 1.23 m/sMV Vmean: 0.68 m/sMV VTI: 36.36 cmMVA (VTI): 2.12 cm2RAP: 5 | | mmHgRV S': 0.15 m/sRVSP: 35.31 mmHgTR maxP.31 mmHgTR Vmax: 2.75 m/s | | Cross Roller:Authenticated by: Nannette Reyes Date/Time: 12-05-2018 12:49:39 | | IMPRESSION: 1. The left ventricle is normal ins ize, wall thickness and systolic | | function EF 60-65%.2. The right ventricle is normal in size and function.3. There is | | moderate aortic regurgitation.4. Mild tricuspid regurgitation and mild pulmonary | | hypertension.5. There is no pericardial effusion. | |IVC: 1.51 cm | |LA Major: 5.79 cm | |EDV(Teich): 107.19 ml | |IVSd: 0.78 cm | |LVIDd: 4.79 cm | |LVPWd: 0.99 cm | |LVOT Diam: 2.01 cm | |%FS: 30.28 % | |EF(Teich): 57.55 % | |ESV(Teich): 45.49 ml | |LVIDs: 3.34 cm | |SV(Teich): 61.69 ml | |RV Major: 7.12 cm | |RV Minor: 3.42 cm | |RV Minor: 2.39 cm | |LVEF MOD A2C: 58.36 % | |SV MOD A2C: 38.77 ml | |LVEF MOD A4C: 54.50 % | |SV MOD A4C: 41.77 ml | |EF Biplane: 55.86 % | |LVEDV MOD BP: 71.87 ml | |LVESV MOD BP: 31.71 ml | |LVEDV MOD A2C: 66.44 ml | |LVLd A2C: 7.33 cm | |LVEDV MOD A4C: 76.63 ml | |LVLd A4C: 7.19 cm | |LVESV MOD A2C: 27.66 ml | |LVLs A2C: 6.17 cm | |LVESV MOD A4C: 34.86 ml | |LVLs A4C: 5.90 cm | |LAESV(A-L): 69.14 ml | |LAESV Index (A-L): 41.90 ml/m2 | |LAAs A2C: 18.80 cm2 | |LAESV A-L A2C: 53.18 ml | |LAESV MOD A2C: 50.94 ml | |LALs A2C: 5.64 cm | |LAAs A4C: 24.44 cm2 | |LAESV A-L A4C: 84.58 ml | |LAESV MOD A4C: 81.88 ml | |LALs A4C: 5.99 cm | |RAAs: 19.01 cm2 | |RAESV A-L: 54.56 ml | |RAESV MOD: 53.84 ml | |RALs: 5.62 cm | |TAPSE: 2.81 cm | |AR Dec Carroll: 3.11 m/s2 | |AR Dec Time: 1329.52 ms | |AR maxP.38 mmHg | |AR PHT: 385.56 ms | |AR Vmax: 4.13 m/s | |AV Env.Ti: 327.85 ms | |AV maxP.53 mmHg | |AV meanP.83 mmHg | |AV Vmax: 1.69 m/s | |AV Vmean: 1.24 m/s | |AV VTI: 40.95 cm | |TOSIN Vmax: 1.90 cm2 | |TOSIN (VTI): 1.88 cm2 | |AVAI Vmax: 0.00 cm2/m2 | |AVAI (VTI): 0.00 cm2/m2 | |LVOT Env.Ti: 339.16 ms | |LVOT maxP.08 mmHg | |LVOT meanP.21 mmHg | |LVSI Dopp: 46.75 ml/m2 | |LVSV Dopp: 77.14 ml | |LVOT Vmax: 1.01 m/s | |LVOT Vmean: 0.71 m/s | |LVOT VTI: 24.11 cm | |MV A Refugio: 1.01 m/s | |MV Dec Carroll: 5.24 m/s2 | |MV DecT: 234.73 ms | |MV E Refugio: 1.23 m/s | |MV E/A Ratio: 1.20 | |E/E' Sept: 30.77 | |E' Lat: 0.04 m/s | |E' Sept: 0.03 m/s | |MV maxP.12 mmHg | |MV meanP.27 mmHg | |MV Vmax: 1.23 m/s | |MV Vmean: 0.68 m/s | |MV VTI: 36.36 cm | |MVA (VTI): 2.12 cm2 | |RAP: 5 mmHg | |RV S': 0.15 m/s | |RVSP: 35.31 mmHg | |TR maxP.31 mmHg | |TR Vmax: 2.75 m/s | | | |Cross Roller: | |Authenticated by: Nannette Morrison | |Report Date/Time: 12-05-2018 12:49:39 | | | |IMPRESSION: | |1. The left ventricle is normal ins ize, wall thickness and systolic function EF 60-65%. | |2. The right ventricle is normal in size and function. | |3. There is moderate aortic regurgitation. | |4. Mild tricuspid regurgitation and mild pulmonary hypertension. | |5. There is no pericardial effusion. | + + documented in this encounter Visit Diagnoses Not on filedocumented in this encounter"
--- OUTSIDE RECORDS SUMMARY | ~2019-06-13 | XMS | Encounter Summary ---
Demographics + + + | Address | [address] | | | [place] [address] | + + + | Home Phone | | + + + | Preferred Language | Unknown | + + + | Marital Status | | + + + | Restorationism Affiliation | CAT | + + + | Race | White | + + + | Ethnic Group | Not or | + + + Author + + + | Author | [facility] | + + + | Organization | [facility] | + + + | Address | Unknown | + + + | Phone | Unavailable | + + + Support + + + + + | Name | Relationship | Address | Phone | + + + + + | Jer Posey | ECON | [address] | | | | [place], [place] | | | | | [address] | | + + + + + Care Team Providers + +------+ + | Care Machine Tailer Name | Role | Phone | + +------+ + | Mike Saucedo MD | PCP | | + +------+ + Reason for Visit + + + | Reason | Comments | + + + | History and physical | | | examination | | + + + AUTH/CERT (Routine) +--------+--------+ + + + + | Status | Reason | Specialty | Diagnoses / | Referred By | Referred To | | | | | Procedures | Contact | Contact | +--------+--------+ + + + + | Closed | | | | | | +--------+--------+ + + + + Encounter Details +--------+---------+ + + + | Date | Type | Department | Care Team | Description | +--------+---------+ + + + | 10/23/ | Office | Dig[facility]ive [facility] | Doug March, | Paraesophageal | | 2011 | Visit | [place] [facility] [address] | MD [address] | hernia (Primary Dx) | | | | [address] | [address] | | | | | Mailcode: Center | [place], [place] | | | | | [facility] and | [address] | | | | | [facility], [facility] [address] | [phone] | | | | | [place], [place] | | | | | | [address] | | | | | | [phone] | | | +--------+---------+ + + + Social History [...] Comments | + + +---------+ + | Not Asked | | | | + + +---------+ [...] + + + | Blood Pressure | 168/58 | 10/24/2011 10:52 AM | | | | | PDT | | + + + + + | Pulse | 68 | 10/24/2011 10:52 AM | | | | | PDT | | + + + + + | Temperature | 36.9 C (98.4 F) | 10/24/2011 10:52 AM | | | | | PDT | | + + + + + | Respiratory Rate | 14 | 10/24/2011 10:52 AM | | | | | PDT | | + + + + + | Oxygen Saturation | - | - | | + + + + + | Inhaled Oxygen | - | - | | | Concentration | | | | + + + + + | Weight | 65.8 kg (145 lb) | 10/24/2011 10:52 AM | | | | | PDT | | + + + + + | Height | 165.1 cm (5' 5") | 10/24/2011 10:52 AM | | | | | PDT | | + + + + + | Body Mass Index | 24.13 | 10/24/2011 10:52 AM | | | | | PDT | | + + + + + documented in this encounter Patient Instructions Patient Instructions Delicia Mcneill RN - 10/24/2011 12:16 PM PDTEPICSPINPTPREOPINSTRUCTIONSP [facility] INFORMATION [facility] General Surgery Office Toll-free: ext [phone] Surgery Date: 10/26/11 Procedure: Laparoscopic paraesophageal hernia repair and Parker Fundoplication Surgeon Name: Marin Alvarado MD DIRECTIONS FOR SURGERY DIET Nothing to eat or drink after midnight on the night prior to surgery. Your doctor will ins truct you on what medications to take the morning of surgery. Please note: Some surgeries may require additional dietary restrictions or a bowel preparation. Your white rgical team will give you additional printed instructions should these be necessary. MEDICATIONS Unless otherwise directed by your provider, do not take any Aspirin, vitamin E or non-stero idal anti-inflammatory (NSAIDs i.e. Advil, Aleve, Ibuprofen) or herbal supplements seven day s prior to your surgery. These drugs may interfere with normal blood clotting and may cause excessive bleeding and bruising during or after the surgery. Please see the list below, [facility] has a list of products that contain Aspirin, Ibuprofen, or Vitamin E If you are taking Coumadin (warfarin), Plavix or any other blood thinners please let your s urgical team know as medication changes will be necessary. If you need a pain medication for general purposes, use Tylenol as directed. If you are in doubt about any medications that you are taking, please contact our office. PRE-OP BATHING/SHOWERING - HIBICLENS (Chlorhexidine Gluconate) Bath or shower the evening before and the morning of your surgery Use the bottle of Hibiclense soap for the evening cleansing and the bottle in the mor jaki Wash from your neck to your toes. BE CAREFUL NOT TO WASH YOUR FACE OR HAIR WITH THIS SOLU TION After your shower or bath do not apply lotions, powders, or deoderant SMOKING You should not smoke for four weeks prior to the procedure and two weeks after the procedur e. If you are a smoker, please speak with your provider. Smoking can significantly affect the outcome of your procedure. Smoking near the time of white rgery causes a more acute narrowing of the blood vessels, which may lead to decreased blood flow to the tissue, poor healing, bad scars, or actual loss of tissue. WHEN TO ARRIVE Check-in times for Hospital Admissions are not available until the day prior to surgery. S rayneone will contact you with your check in time. If you do not hear from anyone by 3:00 PM please call the General Surgery Office at [phone] for [id number]. PARKING Parking for patients and visitors is available in the [facility] Parking structure located across from the emergency department. Patient parking is available on level 1 and 3. [place]e red parking is available on the top level. CHECKING IN FOR SURGERY For Hospital Admission (in-patient) you will check in on the day of surgery at the [facility] g Department located on the 9th floor of [facility] TRANSPORTATION You will require transportation home on the day of discharge. Pain medications and physica l activity restrictions may limit your ability to drive safely. CANCELLING YOUR PROCEDURE Please notify the general surgery office at [phone] as soon as possible should you nee d to cancel or change your surgery date. We will attempt to reschedule your procedure in a timely manner however due to a limited amount of operating room time a waiting list is not u ncommon. ILLNESS Please call our office with any signs of illness such as cold, flu, infection, fever, or s kin rash/infection anytime prior to your surgery. PRODUCTS CONTAINING ASPIRIN [place], Anacin, Anexsia with Codeine, Andynos, Aspirin, Aspirin suppositories, Ascrip tin, Aspergum, Axotal, B-A-C, Baby Aspirin, Harley, BC Powder, Bexophene, Buffaprin, Bufferin , Buffinol, Cama-Arthritis Strength, Congespirin, Lookout, Coricidin, Damason, Darvon, Dristan, Leni-Gesic, Digel, Dolprin #3 Tablets, Donatab, Doxaphene, Duragesic, Easprin, Ecotrin, Emag rin Forte, Emiprin, Emprazil, Equagesic, Equazine M, Excedrin, Fiogesic, Fiorgen PH, Fiorice t, Fiorinal, 4-Way Cold Tablet Gemnisyn, Indocin, Liquprin, Lortab ASA, Magnaprin, Marnal, Meprobamate, Midol, Momentum, N orgesic, Vilas, Orphengesic, Pabalate, P-A-C, Percodan, Presalin, Robaxasil, Roxiprin, David eto, Salocol SK-65 Compound, Sine-Aid, Sine-Off,, Ector, Supac, Talwin Compound, Trigesic, Tolectin , Traiminicin, Vanquish, ZORprin, Zomax PRODUCTS CONTAINING IBUPROFEN Advil, Aleve, Haltran, Medipren, Midol, Motrin, Naproxyn, Nuprin, Rufen OTHER PRODUCTS WHICH MAY PROMOTE BLEEDING Vitamin E, Gingko Biloba, Marine Fatty Acids, Thornton-3 Fish Oil Supplements documented in this encounter Progress Notes Doug March MD - 11/09/2011 9:22 PM PDTI saw and evaluated the patient. I agree with the findings and the plan of care as documented in the resident s note. Doug March M.D. [facility] [employer] ([facility]) Professor and Vice-Personal Injury Attorney of Surgery [employer] [facility] for Pancreatic Disease Research Pancreatic/ HepatoBiliary and Foregut Working Groups Mail Code [id number] [address] [place], [place]. [address] email: [email or web address] Evan Hadley MD - 10/24/2011 4:54 PM WERNERShireen Posey is a 71 y.o. female who returns for preoperativ e evaluation of laparoscopic hiatal hernia repair. The patient presented to clinic back in [place] with symptoms of regurgitation and chest pain; she was worked up and scheduled for [facility] at the beginning of May. Due to a root canal then travel to [place], [place], her surgery has been delayed until now. Her symptoms have improved with diet modification although she still reports vomiting for several hours after eating certain foods. She denies chest pain, dysphagia, heartburn, fever, any other symptoms. She is a highly functional lady and has o nly had an appendectomy. UGI showed a large hiatal hernia, Endoscopy revealed large hiatal h ernia. On exam she appears well, abdomen is soft and nontender. Lungs are CTAB and heart dem onstrates a 3/6 systolic murmur consistent with her history of rheumatic fever. Last , an Echo was obtained and Pre-Op Clinic cleared her for surgery; she will see them again t his afternoon. My impression is that the patient has a symptomatic hiatal hernia and my kat n is for laparoscopic paraesophageal hernia repair, Parker fundoplication, possible Stephanie g astroplasty this October 25. The risks of gastric/esophageal injury, bleeding, infectio n were explained and the patient wishes to proceed. documented in this encounter Plan of Treatment + +------+--------+ + + | Name | Type | Priori | Associated Diagnoses | Order Schedule | | | | ty | | | + +------+--------+ + + | 12 LEAD ECG | ECG | Routin | Paraesophageal | Ordered: 10/24/2011 | | | | e | hernia | | + +------+--------+ + + documented as of this encounter Results TYPE AND SCREEN (10/24/2011 2:23 PM PDT) + + + + + + | Component | Value | Ref Range | Performed | Pathologist | | | | | At | Signature | + + + + + + | Antibody | Negative | | [facility] | | | Screen | | | DEPARTMENT | | | | | | OF | | | | | | PATHOLOGY | | + + + + + + | ABO GROUP | B | | [facility] | | | | | | DEPARTMENT | | | | | | OF | | | | | | PATHOLOGY | | + + + + + + | RH TYPE | Positive | | [facility] | | | | | | DEPARTMENT | | | | | | OF | | | | | | PATHOLOGY | | + + + + + + + + | Specimen | + + | Blood - Blood | + + + + + + + | Performing | Address | City/State/Zipcode | Phone Number | | Organization | | | | + + + + + | [facility] DEPARTMENT | [address] | [place] [address] | | | PATHOLOGY | [address] | | | + + + + + CBC ONLY (10/24/2011 2:23 PM PDT) + +-------+ + + + | Component | Value | Ref Range | Performed | Pathologist | | | | | At | Signature | + +-------+ + + + | WHITE CELL | 8.3 | 4.4 - 11.0 K/cu | [facility] | | | COUNT | | mm | DEPARTMENT | | | | | | OF | | | | | | PATHOLOGY | | + +-------+ + + + | RED CELL | 4.21 | 4.00 - 5.20 | [facility] | | | COUNT | | M/cu mm | DEPARTMENT | | | | | | OF | | | | | | PATHOLOGY | | + +-------+ + + + | HEMOGLOBIN | 12.9 | 12.0 - 16.0 | [facility] | | | | | g/dL | DEPARTMENT | | | | | | OF | | | | | | PATHOLOGY | | + +-------+ + + + | HEMATOCRIT | 38.2 | 36.0 - 46.0 % | [facility] | | | | | | DEPARTMENT | | | | | | OF | | | | | | PATHOLOGY | | + +-------+ + + + | MCV | 90.6 | 80.0 - 96.0 fL | [facility] | | | | | | DEPARTMENT | | | | | | OF | | | | | | PATHOLOGY | | + +-------+ + + + | MCHC | 33.9 | 33.4 - 35.5 | [facility] | | | | | g/dL | DEPARTMENT | | | | | | OF | | | | | | PATHOLOGY | | + +-------+ + + + | RDW | 14.0 | 11.5 - 15.0 % | [facility] | | | | | | DEPARTMENT | | | | | | OF | | | | | | PATHOLOGY | | + +-------+ + + + | PLATELET | 279 | 150 - 400 K/cu | [facility] | | | COUNT | | mm | DEPARTMENT | | | | | | OF | | | | | | PATHOLOGY | | + +-------+ + + + + + | Specimen | + + | Blood - Blood | + + + + + + + | Performing | Address | City/State/Zipcode | Phone Number | | Organization | | | | + + + + + | [facility] | [address] | [place] [address] | | | PATHOLOGY | [address] | | | + + + + + COMPLETE METABOLIC SET (NA,K,CL,CO2,BUN,CREAT,GLUC,CA,AST,ALT,BILI TOTAL,ALK PHOS,ALB,PROT TOTAL) (10/24/2011 2:23 PM PDT) + + + + + + | Component | Value | Ref Range | Performed | Pathologist | | | | | At | Signature | + + + + + + | GLUCOSE, | 99 | 60 - 99 mg/dL | [facility] | | | PLASMA | | | DEPARTMENT | | | (LAB) | | | OF | | | | | | PATHOLOGY | | + + + + + + | BUN, PLASMA | 11 | 6 - 20 mg/dL | [facility] | | | (LAB) | | | DEPARTMENT | | | | | | OF | | | | | | PATHOLOGY | | + + + + + + | CREATININE | 0.75 | 0.60 - 1.10 | [facility] | | | PLASMA | | mg/dL | DEPARTMENT | | | (LAB) | | | OF | | | | | | PATHOLOGY | | + + + + + + | TOTAL | 6.7 | 6.1 - 7.9 g/dL | [facility] | | | PROTEIN, | | | DEPARTMENT | | | PLASMA | | | OF | | | (LAB) | | | PATHOLOGY | | + + + + + + | ALBUMIN, | 3.8 | 3.5 - 4.7 g/dL | [facility] | | | PLASMA | | | DEPARTMENT | | | (LAB) | | | OF | | | | | | PATHOLOGY | | + + + + + + | CALCIUM, | 9.2 | 8.6 - 10.2 | [facility] | | | PLASMA | | mg/dL | DEPARTMENT | | | (LAB) | | | OF | | | | | | PATHOLOGY | | + + + + + + | BILIRUBIN | 0.5 | 0.3 - 1.2 mg/dL | [facility] | | | TOTAL | | | DEPARTMENT | | | | | | OF | | | | | | PATHOLOGY | | + + + + + + | ALK PHOS | 81 | 53 - 141 U/L | [facility] | | | | | | DEPARTMENT | | | | | | OF | | | | | | PATHOLOGY | | + + + + + + | AST(SGOT) | 15 | 15 - 41 U/L | [facility] | | | | | | DEPARTMENT | | | | | | OF | | | | | | PATHOLOGY | | + + + + + + | SODIUM, | 139 | 134 - 143 | [facility] | | | PLASMA | | mmol/L | DEPARTMENT | | | (LAB) | | | OF | | | | | | PATHOLOGY | | + + + + + + | POTASSIUM, | 3.5 | 3.4 - 5.0 | [facility] | | | PLASMA | | mmol/L | DEPARTMENT | | | (LAB) | | | OF | | | | | | PATHOLOGY | | + + + + + + | CHLORIDE, | 106 | 97 - 108 mmol/L | [facility] | | | PLASMA | | | DEPARTMENT | | | (LAB) | | | OF | | | | | | PATHOLOGY | | + + + + + + | TOTAL CO2, | 27 | 22 - 29 mmol/L | [facility] | | | PLASMA | | | DEPARTMENT | | | (LAB) | | | OF | | | | | | PATHOLOGY | | + + + + + + | ALT (SGPT) | 11 (L) | 13 - 48 U/L | [facility] | | | | | | DEPARTMENT | | | | | | OF | | | | | | PATHOLOGY | | + + + + + + | EGFR | > 60 | >60 mL/min | [facility] | | | - | | | DEPARTMENT | | | SWEDISH | | | OF | | | | | | PATHOLOGY | | + + + + + + | EGFR NON | > 60Comment: GFR is | >60 mL/min | [facility] | | | -PLACIDO | estimated using the MDRD | | DEPARTMENT | | | RICAN | equation recommended by | | OF | | | | theNational Kidney | | PATHOLOGY | | | | Disease Education | | | | | | Program. Estimated GFR | | | | | | Interpretive | | | | | | Information: <60 | | | | | | mL/min/1.73 sq m | | | | | | Chronic Kidney Disease | | | | | | <15 mL/min/1.73 sq m | | | | | | Kidney Failure | | | | | | Estimated GFR greater | | | | | | than 60mL/min/1.73 is of | | | | | | limited clinical Value. | | | | | | The MDRD equation is | | | | | | not valid in the | | | | | | following situations: - | | | | | | Patients under 18 years | | | | | | of age - Severe | | | | | | malnutrition or obesity | | | | | | - Vegetarian diet - | | | | | | Rapidly changing kidney | | | | | | function | | | | + + + + + + | ANION GAP | 6 | 4 - 11 mmol/L | [facility] | | | | | | DEPARTMENT | | | | | | OF | | | | | | PATHOLOGY | | + + + + + + | ANION | 6 | 4 - 11 mmol/L | [facility] | | | GAP(ALB | | | DEPARTMENT | | | CORRECTED) | | | OF | | | | | | PATHOLOGY | | + + + + + + + + | Specimen | + + | Blood - Blood | + + + + + + + | Performing | Address | City/State/Zipcode | Phone Number | | Organization | | | | + + + + + | [facility] | [address] | [place] [address] | | | PATHOLOGY | [address] | | | + + + + + documented in this encounter Visit Diagnoses + + | Diagnosis | + + | Paraesophageal hernia - Primary Diaphragmatic hernia without mention of obstruction | | or gangrene | + + documented in this encounter
--- OUTSIDE RECORDS SUMMARY | ~2019-06-13 | XMS | Encounter Summary ---
Demographics + + + | Address | [address] | | | [place] [address] | + + + | Home Phone | | + + + | Preferred Language | Unknown | + + + | Marital Status | | + + + | Orthodox Affiliation | 1041 | + + + | Race | Unknown | + + + | Ethnic Group | Unknown | + + + Author + + + | Author | [facility] | | | and [place] | + + + | Organization | [facility] | | | and [place] | + + + | Address | Unknown | + + + | Phone | Unavailable | + + + Support + + +---------+ + | Name | Relationship | Address | Phone | + + +---------+ + | Sade Beckwith | ECON | Unknown | | + + +---------+ + | [place]) | ECON | Unknown | | | Kalpesh | | | | + + +---------+ + Care Team Providers + +------+ + | Care Aircraft Charter Dispatcher Name | Role | Phone | + +------+ + | Mike Saucedo MD | PCP | | + +------+ + Reason for Visit + + + | Reason | Comments | + + + | Hospital Follow-up | | + + + Encounter Details +--------+ + + + + | Date | Type | Department | Care Team | Description | +--------+ + + + + | 07/18/ | Telephone | [facility] | Sunitha Banegas, | Hospital Follow-up | | 2018 | | [facility] | PharmD [address] | | | | | [address] | [address] | | | | | [place] [address] | [place] [address] | | | | | [phone] | [phone] | | +--------+ + + + + [...] [place] | | | | | | [id number] | | | | | | | | +--------+---------+ + + + | 11/04/ | Office | Pulmonology | Sukhjinder, | | | 2019 | Visit | | Windy Aldrich, | | | | | | MD [address] | | | | | | [place] | | | | | | [place] [address] | | | | | | [phone] | | | | | | | | +--------+---------+ + + + documented as of this encounter Visit Diagnoses Not on filedocumented in this encounter"
--- OUTSIDE RECORDS SUMMARY | ~2019-06-13 | XMS | Encounter Summary ---
Demographics + + + | Address | [address] | | | [place] [address] | + + + | Home Phone | | + + + | Preferred Language | Unknown | + + + | Marital Status | | + + + | Cheondoism Affiliation | 1041 | + + + | Race | Unknown | + + + | Ethnic Group | Unknown | + + + Author + + + | Author | [facility] | | | and [place] | + + + | Organization | [facility] | | | and [place] | + + + | Address | Unknown | + + + | Phone | Unavailable | + + + Support + + +---------+ + | Name | Relationship | Address | Phone | + + +---------+ + | Sade Beckwith | ECON | Unknown | | + + +---------+ + | [place]) | ECON | Unknown | | | Kalpesh | | | | + + +---------+ + Care Team Providers + +------+ + | Care Training Officer Name | Role | Phone | + +------+ + | Mike Saucedo MD | PCP | | + +------+ + Reason for Visit + + + | Reason | Comments | + + + | Medication Refill | | + + + Encounter Details +--------+--------+ + + + | Date | Type | Department | Care Team | Description | +--------+--------+ + + + | 05/06/ | Refill | [facility] | Sukhjinder, | Medication Refill | | 2019 | | PULMONOLOGY [address] | Windy Aldrich, | | | | | [address] | MD [address] | | | | | [place] | [place], | | | | | [address] | [place] [address] | | | | | [phone] | [phone] | | | | | | | | +--------+--------+ + + + Social History + + + +--------+ + | Tobacco Use | Types | Packs/Day | Years | Date | | | | | Used | | + + + +--------+ + | Former Smoker | Cigarettes | 0.5 | 39 | 05/06/1969 - | | [...] [place] | | | | | | [id number] | | | | | | | | +--------+---------+ + + + | 11/04/ | Office | Pulmonology | Sukhjinder, | | | 2019 | Visit | | Windy Aldrich, | | | | | | MD [address] | | | | | | [place], | | | | | | [place] [address] | | | | | | [phone] | | | | | | | | +--------+---------+ + + + documented as of this encounter Visit Diagnoses + + | Diagnosis | + + | Chronic obstructive pulmonary disease, unspecified COPD type (HCC) - Primary | + + documented in this encounter"
--- OUTSIDE RECORDS SUMMARY | ~2019-06-13 | XMS | Encounter Summary ---
Demographics + + + | Address | [address] | | | [place] [address] | + + + | Home Phone | | + + + | Preferred Language | Unknown | + + + | Marital Status | | + + + | Caodaism Affiliation | 1041 | + + + | Race | Unknown | + + + | Ethnic Group | Unknown | + + + Author + + + | Author | [facility] | | | and [place] | + + + | Organization | [facility] | | | [...] Team Providers + +------+ + | Care Inking Machine Tender Name | Role | Phone | + +------+ + | Mike Saucedo MD | PCP | | + +------+ + Encounter Details +--------+ + + + + | Date | Type | Department | Care Team | Description | +--------+ + + + + | 07/07/ | Abstract | [facility] [place] | Jerald Montano, | | | 2015 | | PHYSIATRY [address] | MD [address] | | | | | [place], | [place], [place] | | | | | [place] [address] | [address] | | | | | [phone] | | | +--------+ + + + [...] [address] | | | | | | [place], [place] | | | | | | [address] | | | | | | | | +--------+---------+ + + + | 11/04/ | Office | Pulmonology | Sukhjinder, | | | 2019 | Visit | | Windy Aldrich, | | | | | | MD [address] | | | | | | [place], | | | | | | [place] [address] | | | | | | [phone] | | | | | | | | +--------+---------+ + + + documented as of this encounter Visit Diagnoses Not on filedocumented in this encounter"
--- OUTSIDE RECORDS SUMMARY | ~2019-06-13 | XMS | Encounter Summary ---
Demographics + + + | Address | [address] | | | [place] [address] | + + + | Home Phone | | + + + | Preferred Language | Unknown | + + + | Marital Status | | + + + | Voodoo Affiliation | CAT | + + + | Race | White | + + + | Ethnic Group | Not or | + + + Author + + + | Author | [facility] | + + + | Organization | [facility] | + + + | Address | Unknown | + + + | Phone | Unavailable | + + + Support + + + + + | Name | Relationship | Address | Phone | + + + + + | Jer Martinez | ECON | [address] | | | | [place], [place] | | | | | [address] | | + + + + + Care Team Providers + +------+ + | Care Planning Engineer Name | Role | Phone | + +------+ + | Mike Saucedo MD | PCP | | + +------+ + Reason for Visit + + + | Reason | Comments | + + + | New Patient Visit | | + + + Consultation (Routine) +--------+--------+ + + + + | Status | Reason | Specialty | Diagnoses / | Referred By | Referred To | | | | | Procedures | Contact | Contact | +--------+--------+ + + + + | Closed | | Surgery | Diagnoses | Josiane, | Minerva, | | | | | Hernia, | Osbaldo Andrews, | MD Doug | | | | | hiatal | MD VICKERS | [address] | | | | | Procedures | [facility] | [facility] | | | | | CONSULT TO | | Rd [place], | | | | | GASTROENT[place] | GASTROENT[place] | [place] | | | | | LOGY | [address] | [address] | | | | | | [address] | Phone: | | | | | | [place], | [phone] | | | | | | [place] [address] | Fax: | | | | | | Phone: | [phone] | | | | | | [phone] | | | | | | | Fax: | | | | | | | [phone] | | +--------+--------+ + + + + Encounter Details +--------+---------+ + + + | Date | Type | Department | Care Team | Description | +--------+---------+ + + + | 02/28/ | Office | Digestive Health | Doug March, | GERD | | 2010 | Visit | [facility] [address] | MD [address] | (gastroesophageal | | | | [address] Miles | [address] | reflux disease) | | | | Mailcode: Center | [place], [place] | (Primary Dx) | | | | for Health and | [address] | | | | | [facility], [facility] 2 | [phone] | | | | | [place], [place] | | | | | | [address] | | | | | | [phone] | | | +--------+---------+ + + + Social History + + + +--------+------+ | Tobacco Use | Types | Packs/Day | Years | Date | | | | | Used | | + + + +--------+------+ | Former Smoker | Cigarettes | 0.5 | 45 | | + + + +--------+------+ + + +---------+ + | Alcohol Use [...] + + + | Blood Pressure | 174/76 | 02/28/2011 8:52 AM | | | | | PDT | | + + + + + | Pulse | 85 | 02/28/2011 8:52 AM | | | | | PDT | | + + + + + | Temperature | - | - | | + + + + + | Respiratory Rate | 17 | 02/28/2011 8:52 AM | | | | | PDT | | + + + + + | Oxygen Saturation | - | - | | + + + + + | Inhaled Oxygen | - | - | | | Concentration | | | | + + + + + | Weight | 67.7 kg (149 lb 4.8 | 02/28/2011 8:52 AM | | | | oz) | PDT | | + + + + + | Height | 166.4 cm (5' 5.5") | 02/28/2011 8:52 AM | | | | | PDT | | + + + + + | Body Mass Index | 24.47 | 02/28/2011 8:52 AM | | | | | PDT | | + + + + + documented in this encounter Progress Notes Doug March MD - 03/18/2011 11:52 AM PDT [id number] 03/17/2011 [id number] MICHELLE MOORE [id number] PENDING SALE TO [facility] AND [address] [place] [address] or Division of General Surgery, [id number]: March 17, 2011 Osbaldo Joshua M.D. [facility], [place] [address] RE: SHIREEN MARTINEZ MR #: [id number] Dear Dr. Joshua and Dr. Saucedo: I had the pleasure of meeting with Ms. Martinez in my office today to discuss surgical care for her sizable paraesophageal hernia. As you know, Ms. Martinez continues to have difficulty eating and has modified her diet substantially as well as learned to fully masticate her food. She had a barium swallow following balloon dilatation for an esophageal stricture . This demonstrated approximately two-thirds of her stomach residing in her mediastinum. Her past medical history is remarkable for mild aortic stenosis. She has also had a right breast lumpectomy in 1997 along with radiation. She has had sclerotherapy of her veins, knee arthroscopy, and a remote appendectomy. On exam, she looked well, had normal vital signs. Her HEENT exam was unremarkable. Her neck showed no lymphadenopathy and no JVD. Her chest was clear to auscultation. Cardiovascular exam revealed regular rate and rhythm with no murmurs, rubs, or gallops. Her abdomen was soft, nontender, without organomegaly. I had a nice discussion with Ms. Martinez about a laparoscopic approach to her paraesophageal hernia. This would entail reduction of her stomach out of her mediastinum, repair of her hiatus, and a floppy Parker fundoplication. I explained to her that I felt this could be done safely and is not an uncommon procedure in our institution. Ms. Martinez wanted some time to think things over and to discuss this with her family. I certainly think this is reasonable. This is an elective procedure and I would like her to be as sure as possible that she would like to proceed with this to improve her quality of life. I will keep you posted as I know more but at least want to provide you with this interim update. Thank you again for the privilege of being able to help in the care of Ms. Martinez. I greatly enjoyed getting to know her in this brief visit and suspect she must add much to your practice. I hope you are finding some time to enjoy the closing days of summer. Kindest personal regards, Doug March M.D. Professor and Vice-[employer] of Surgery The Zeb Hopkins Chair for Pancreatic Disease Research [facility] ([facility]) Division of Gastrointestinal and General Surgery [facility] / [id number] / [id number] / [id number] / cc: * Mike Saucedo MD [facility] [address] [place] [address] Doug Fontanez MD - 03/17/2011 1:06 PM PDTI saw and evaluated the patient. I agree with the findings and the plan of care as documented in the resident s note. Doug March M.D. [facility] ([facility]) Professor and Vice-[employer] of Surgery The Zeb Hopkins Chair for Pancreatic Disease Research Pancreatic/ HepatoBiliary and Foregut Working Groups Mail Code L235A [address], [place]. [address] email: [email or web address] This office note has been dictated. CSN #: [id number] Joy navarrete MD,PhD - 02/28/2011 9:23 AM PDTFormatting of this note might be different from the orig inal. HISTORY AND PHYSICAL Author: Adam Corbett MD, R-1 Attending: Doug March MD CC: dysphagia, pain in the upper parts of the abdomen. Evaluated and referred to clinic by Dr. Joshua. HPI: Shireen Martinez is a 70 y.o. female who presented today in clinic complaining of di fficulty swallowing certain solid foods, which she thinks she observes during the last 2-3 y ears. This problem is not getting worse with time and she is able to adjust her diet to avoi d it. She also mentions occasional epigastric pain that tends to spread all the way across h er abdomen. And after some time spontaneously disappears. She is not sure what exactly presc ipitates it. She endorses frequent belching and occasional heartburn. A 10 point review of systems was done and was unremarkable except for the signs and symptom s mentioned above. PAST MEDICAL HISTORY: is significant for: -- mild aotic stenosis that was diagnosed on ECHO. The extent of it was such that she was n ever recommended to follow up with it. 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 Knee arthroscopy Vein sclerotherapy HOME MEDICATIONS: Prilosec tetracyclin ALLERGIES: No Known Allergies SOCIAL HISTORY: History Substance Use Topics Smoking status: Former Smoker -- 0.5 packs/day for 45 years Types: Cigarettes Smokeless tobacco: Not on file Alcohol Use: Not on file REVIEW OF SYSTEMS: Constitutional - Negative for fevers/chills Eyes/Ears/Nose/Mouth/Throat - Negative for changes in vision Cardiovascular - Negative for chest pain, dysrhythmia Respiratory - Negative for dyspnea Gastrointestinal - Negative for nausea or vomiting Genitourinary - Negative for dysuria Skin - Negative for erythema Endocrine - Negative for history of diabetes PHYSICAL EXAM: Vital signs: Ht 166.4 cm (5' 5.5")( < 3 %ile), Wt 67.722 kg (149 lbs 4.8 oz)( < 3 %ile), BP 174/76, Pulse 85, RR 17, BMI 24.47 kg/(m^2). General: NAD, comfortable & conversant HEENT: PERRL, EOMI, MMM, fair dentition. Neck: No LAD, no JVD Chest: CTA bilaterally, unlabored with normal inspiratory effort CV: RRR, no m/r/g Gastrointestinal: soft, +BS, normoactive. NTND. no palpable masses. Musculoskeletal: Full AROM and PROM Extremities: WWP, no pedal edema. 2+ radial & PT pulses bilaterally. 1. Patient underwent EGD that revealed : -- Large hiatal hernia -- Stricture of distal esophagus -- Gastric polyps 2. Ballon dilation of the stricture was performed up to 57 Bel[place]an diameter without any comp lications 3. Upper GI swallow is significant for massive hiatal hernia and no evidence of stricture, ASSESSMENT AND PLAN: Shireen Martinez is a 70 y.o. female who presented today in clinic w ith dysphagia, occasional abdominal pain and a variety of different symptoms of dyspepsia. Upper GI study as well as EGD results consistent with large hiatal hernia. Patient was prese nted with the option of definitive operative treatment -- laparoscopic hiatal hernia repair. Details of this operation were extensively explained. Patient decided to think of the the p oracio and discuss it in the family. Follow up in clinic or over the phone recommended when she is ready. Dr. March is the attending of record for this patient encounter. ERASTO CORBETT MD, Blue Surgery, R-1 P.: [id number] documente d in this encounter Plan of Treatment Not on filedocumented as of this encounter Visit Diagnoses + + | Diagnosis | + + | GERD (gastroesophageal reflux disease) - Primary Esophageal reflux | + + documented in this encounter
--- OUTSIDE RECORDS SUMMARY | ~2019-06-13 | XMS | Encounter Summary ---
Demographics + + + | Address | [address] | | | [place] [address] | + + + | Home Phone | | + + + | Preferred Language | Unknown | + + + | Marital Status | | + + + | Spiritism Affiliation | 1041 | + + + | Race | Unknown | + + + | Ethnic Group | Unknown | + + + Author + + + | Author | [facility] | | | and [place] | + + + | Organization | [facility] | | | [...] Team Providers + +------+ + | Care Lighting Engineer Name | Role | Phone | + +------+ + PCP | Unavailable | + +------+ + Encounter Details +--------+ + + + + | Date | Type | Department | Care Team | Description | +--------+ + + + + | 06/15/ | Hospital | [facility] | | | | 1997 - | Encounter | MED [facility] | | | | | | CENTER [address] | | | | 07/21/ | | [place] | | | | 1997 | | [address] | | | | | | [phone] | | | +--------+ + + + [...] [place] | | | | | | [address] | | | | | | | | +--------+---------+ + + + | 11/04/ | Office | Pulmonology | Sukhjinder, | | | 2019 | Visit | | Windy Aldrich, | | | | | | [address] | | | | | | [place], | | | | | | [place] [address] | | | | | | [phone] | | | | | | | | +--------+---------+ + + + documented as of this encounter Visit Diagnoses Not on filedocumented in this encounter"
--- OUTSIDE RECORDS SUMMARY | ~2019-06-13 | XMS | Encounter Summary ---
Demographics + + + | Address | [address] | | | [place] [address] | + + + | Home Phone | | + + + | Preferred Language | Unknown | + + + | Marital Status | | + + + | Yarsanism Affiliation | 1041 | + + + [...] | | + + +---------+ + | [place]anc[place]racie Red) | ECON | Unknown | | | Kalpesh | | | | + + +---------+ + Care Team Providers + +------+ + | Care Wares Sorter Name | Role | Phone | + +------+ + | Mike Saucedo MD | PCP | | + +------+ + Encounter Details +--------+ + + + + | Date | Type | Department | Care Team | Description | +--------+ + + + + | 04/19/ | Orders Only | [facility] [place] | Vesta Leigh, | Obstructive chronic | | 2015 | | PULMONARY [address] | RN | bronchitis (HCC) | | | | [place], | | | | | | [place] [address] | | | | | | [phone] | | | +--------+ + + + [...] [place] | | | | | | [address] | | | | | | | | +--------+---------+ + + + | 11/04/ | Office | Pulmonology | Sukhjinder, | | | 2019 | Visit | | Windy Aldrich, | | | | | | MD [address] | | | | | | [place], | | | | | | [place] [address] | | | | | | [phone] | | | | | | | | +--------+---------+ + + + documented as of this encounter Visit Diagnoses + + | Diagnosis | + + | Obstructive chronic bronchitis (HCC) Obstructive chronic bronchitis without | | exacerbation | + + documented in this encounter"
--- OUTSIDE RECORDS SUMMARY | ~2019-06-13 | XMS | Encounter Summary ---
Demographics + + + | Address | [address] | | | [place] [address] | + + + | Home Phone | | + + + | Preferred Language | Unknown | + + + | Marital Status | | + + + | Adventist Affiliation | 1041 | + + + | Race | Unknown | + + + | Ethnic Group | Unknown | + + + Author + + + | Author | [facility] | | | and [place] | + + + | Organization | [facility] | | | and [place] | + + + | Address | Unknown | + + + | Phone | Unavailable | + + + Support + + +---------+ + | Name | Relationship | Address | Phone | + + +---------+ + | Sade Beckwith | ECON | Unknown | | + + +---------+ + | [place]) | ECON | Unknown | | | Kal[place]esh | | | | + + +---------+ + Care Team Providers + +------+ + | Care Fashion Stylist Name | Role | Phone | + [...] | | Pulmonary | [place], | [address] | | | | | nodules | Jenna George, | [place], | | | | | Procedures | MD [address] | [place] [address] | | | | | CT Chest wo | [address] | Phone: | | | | | Contrast | [place], | [phone] | | | | | | [place] [address] | Fax: | | | | | | | [phone] | +--------+--------+ + + + + Encounter Details +--------+ + + + + | Date | Type | Department | Care Team | Description | +--------+ + + + + | 11/10/ | Hospital | [facility] | [place], | Pulmonary nodules | | 2015 | Encounter | MED CTR [address] | Jenna George MD | | | | | [place], | | | | | | [place] [address] | | | | | | [phone] | | | +--------+ + + + [...] + + + +---------+ + + | Calcium | Take 1 tablet by | | 0 | | | | Carb-Cholecalciferol | mouth Daily. | | | | 8 | | (CALCIUM 1000 + D | | | | | | | PO) | | | | | | + + + +---------+ + + | cholecalciferol | Take 2,000 Units by | | 0 | | | | (VITAMIN D-3) 2000 | mouth Daily. | | | | 6 | | UNITS TABS | | | | | | + + + +---------+ + + | flunisolide | 2 sprays by Nasal | 1 | 11 | 05/06/20 | | | (NASALIDE) 25 | route Daily. | Bottle | | 14 | 5 | | MCG/ACT (0.025%) | | | | | | | SOLN | | | | | | + + + +---------+ + + | ranitidine | Take 1 tablet by | 30 | 0 | 11/11/19 | | | (ZANTAC) 150 mg | mouth nightly. | tablet | | 15 | 5 | | tablet | | | | | | + + + +---------+ + + | tiotropium | Inhale 1 capsule | 30 | 11 | 06/04/20 | | | (SPIRIVA HANDIHALER) | into the lungs | capsule | | 14 | 5 | | 18 mcg inhalation | Daily. | | | | | | capsule | | | | | | + [...] [place] | | | | | | [address] | | | | | | | | +--------+---------+ + + + | 11/04/ | Office | Pulmonology | Sukhjinder, | | | 2019 | Visit | | Windy Aldrich, | | | | | | MD [address] | | | | | | [place] | | | | | | [place] [address] | | | | | | [phone] | | | | | | | | +--------+---------+ + + + documented as of this encounter Procedures + +--------+ + + + | Procedure Name | Priori | Date/Time | Associated Diagnosis | Comments | | | ty | | | | + +--------+ + + + | CT CHEST WO CONTRAST | Routin | 11/10/2014 | Pulmonary nodules | Results for this | | | e | 10:12 AM | | procedure are in the | | | | PDT | | results section. | + +--------+ + + + documented in this encounter Results CT Chest wo Contrast (11/10/2014 10:12 AM PDT) + + | Specimen | + + | | + + + + + | Narrative | Performed At | + + + | EXAM: CT CHEST WITH CONTRAST:11/10/2014 9:53 AM HISTORY: Follow | JESSE | | up nodules COMPARISON: Chest CT dated May 17, 2014. | [facility] | | TECHNIQUE: Axial images are obtained from thoracic inlet to [facility] | | abdomen without contrast. DOSE: DLP [...] | + + + + + | [address] | [address] | [place] | [phone] | | [facility] | | [address] | | | - IMAGING | | | | + + + + + documented in this encounter Visit Diagnoses + + | Diagnosis | + + | Pulmonary nodules Other nonspecific abnormal finding of lung field | + + documented in this encounter"
--- OUTSIDE RECORDS SUMMARY | ~2019-06-13 | XMS | Encounter Summary ---
Demographics + + + | Address | [address] | | | [place] [address] | + + + | Home Phone | | + + + | Preferred Language | Unknown | + + + | Marital Status | | + + + | Evangelical Affiliation | CAT | + + + | Race | White | + + + | Ethnic Group | Not or | + + + Author + + + | Author | [facility] | + + + | Organization | [facility] | + + + | Address | Unknown | + + + | Phone | Unavailable | + + + Support + + + + + | Name | Relationship | Address | Phone | + + + + + | Jer Posey | ECON | [address] | | | | [place], [place] | | | | | [address] | | + + + + + Care Team Providers + +------+ + | Care Chief Meteorologist Name | Role | Phone | + +------+ + | Mike Saucedo MD | PCP | | + +------+ + Encounter Details +--------+--------+ + + + | Date | Type | Department | Care Team | Description | +--------+--------+ + + + | 10/27/ | Refill | Digestive Health | Maksim Martinez, | | | 2011 | | [place] [facility] [address] | [address] | | | | | [address] | [address] | | | | | Mailcode: [place] | [place], [place] | | | | | [facility] and | [address] | | | | | [facility] [address] | [phone] | | | | | [place], [place] | | | | | | [address] | | | | | | [phone] | | | +--------+--------+ + + + [...] as of this encounter Plan of Treatment Not on filedocumented as of this encounter Visit Diagnoses Not on filedocumented in this encounter"
--- OUTSIDE RECORDS SUMMARY | ~2019-06-13 | XMS | Encounter Summary ---
Demographics + + + | Address | [address] | | | [place] [address] | + + + | Home Phone | | + + + | Preferred Language | Unknown | + + + | Marital Status | | + + + | Uatsdin Affiliation | 1041 | + + + [...] | | + + +---------+ + | [place]acie Red) | ECON | Unknown | | | Kalpesh | | | | + + +---------+ + Care Team Providers + +------+ + | Care Portable Canteen Operator Name | Role | Phone | + +------+ + | Mike Saucedo MD | PCP | | + +------+ + Encounter Details +--------+ + + + + | Date | Type | Department | Care Team | Description | +--------+ + + + + | 03/21/ | Orders Only | [facility] [place] | Sade [place] | Pulmonary | | 2015 | | PULMONARY [address] | Daniela RN | hypertension due to | | | | [place], | | left heart valvular | | | | [place] [address] | | disease (HCC); | | | | [phone] | | Obstructive chronic | | | | | | bronchitis (HCC) | +--------+ + + + + Social [...] [place] | | | | | | [address] | | | | | | | | +--------+---------+ + + + | 11/04/ | Office | Pulmonology | Sukhjinder, | | | 2019 | Visit | | Windy Aldrich, | | | | | | MD [address] | | | | | | [place], | | | | | | [place] [address] | | | | | | [phone] | | | | | | | | +--------+---------+ + + + documented as of this encounter Visit Diagnoses + + | Diagnosis | + + | 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
--- OUTSIDE RECORDS SUMMARY | ~2019-06-13 | XMS | Encounter Summary ---
Demographics + + + | Address | [address] | | | [place] [address] | + + + | Home Phone | | + + + | Preferred Language | Unknown | + + + | Marital Status | | + + + | Confucianism Affiliation | 1041 | + + + | Race | Unknown | + + + | Ethnic Group | Unknown | + + + Author + + + | Author | [facility] | | | and [place] | + + + | Organization | [facility] | | | and [place] | + + + | Address | Unknown | + + + | Phone | Unavailable | + + + Support + + +---------+ + | Name | Relationship | Address | Phone | + + +---------+ + | Sade Beckwith | ECON | Unknown | | + + +---------+ + | [place]ie Red) | ECON | Unknown | | | [place] | | | | + + +---------+ + Care Team Providers + +------+ + | Care Plush Weaver Name | Role | Phone | + +------+ + | Mike Saucedo MD | PCP | | + +------+ + Encounter Details +--------+ + + + + | Date | Type | Department | Care Team | Description | +--------+ + + + + | 05/06/ Hospital | [facility] | [place], | Cough | | 2013 | Encounter | MED CTR PULMONARY | Jenna George MD | | | | | FUNCTION [address] | | | | | | [place], | | | | | | [place] [address] | | | | | | [phone] | | | +--------+ + + + [...] + + + +---------+ + + | | Inhale 1 puff into | 1 each | 11 | 05/06/20 | | | fluticasone-salmeter | the lungs 2 times | | | 14 | 4 | | ol (ADVAIR DISKUS) | daily. | | | | | | 250-50 mcg/puff | | | | | | | diskus inhaler | | | | | | + + + +---------+ + + | tiotropium | Inhale 18 mcg into | | 0 | | | | (SPIRIVA) 18 mcg | the lungs Daily. | | | | 4 | | inhalation capsule | | | | | | [...] [place] | | | | | | [id number] | | | | | | | | +--------+---------+ + + + | 11/04/ | Office | Pulmonology | Sukhjinder, | | | 2019 | Visit | | Windy Aldrich, | | | | | | MD [address] | | | | | | [place] | | | | | | [place] [address] | | | | | | [phone] | | | | | | | | +--------+---------+ + + + documented as of this encounter Procedures + +--------+ + + + | Procedure Name | Priori | Date/Time | Associated Diagnosis | Comments | | | ty | | | | + +--------+ + + + | PFT PULMONARY | ART | 05/08/2014 | Cough | Results for this | | FUNCTION TESTING | | 3:18 PM | | procedure are in the | | ORDERS | | PDT | | results section. | + +--------+ + + + | PFT PULMONARY | ART | 05/08/2014 | Cough | Results for this | | FUNCTION TESTING | | 3:18 PM | | procedure are in the | | ORDERS | | PDT | | results section. | + +--------+ + + + | PFT PULMONARY | ART | 05/08/2014 | Cough | Results for this | | FUNCTION TESTING | | 3:18 PM | | procedure are in the | | ORDERS | | PDT | | results section. | + +--------+ + + + | PFT PULMONARY | ART | 05/08/2014 | Cough | Results for this | | FUNCTION TESTING | | 3:18 PM | | procedure are in the | | ORDERS | | PDT | | results section. | + +--------+ + + + documented in this encounter Results PFT PULMONARY FUNCTION TESTING [...] | by: Jenna Maria MD 05/08/2014 15:11 [facility] | | | [facility] CC: Mike Saucedo | | [...] | | Jenna Maria MD [facility]08[facility]2014 [facility] | | Mike Saucedo | + + documented in this encounter Visit Diagnoses + + | Diagnosis | + + | Cough | + + documented in this encounter"
--- OUTSIDE RECORDS SUMMARY | ~2019-06-13 | XMS | Encounter Summary ---
Demographics + + + | Address | [address] | | | [place] [address] | + + + | Home Phone | | + + + | Preferred Language | Unknown | + + + | Marital Status | | + + + | Jewish Affiliation | [phone] | + + + | Race | Unknown | + + + | Ethnic Group | Unknown | + + + Author + + + | Author | [facility] | | | and [place] | + + + | Organization | [facility] | | | and [...] Team Providers + +------+ + | Care Game Agent Name | Role | Phone | + +------+ + | Mike Saucedo MD | PCP | | + +------+ + Encounter Details +--------+ + + + + | Date | Type | Department | Care Team | Description | +--------+ + + + + | 12/11/ | Orders Only | [facility] | Jane Maher | | | 2016 | | CONVERSION [address] | [address] | | | | | [address] | [place] | | | | | [place], [place] | [place] [address] | | | | | [address] | [phone] | | | | | [phone] | | | +--------+ + + + [...] | | | | | [place], [place] | | | | | | [address] | | | | | | | | +--------+---------+ + + + | 11/04/ | Office | Pulmonology | Sukhjinder, | | | 2019 | Visit | | Windy Aldrich, | | | | | | [address] | | | | | | [place], | | | | | | [place] [address] | | | | | | [phone] | | | | | | | | +--------+---------+ + + + documented as of this encounter Procedures + +--------+ + + + | Procedure Name | Priori | Date/Time | Associated Diagnosis | Comments | | | ty | | | | + +--------+ + + + | ECHO INTERPRETATION | Routin | 12/11/2016 | | Results for this | | OF OUTSIDE FILMS | e | 12:54 PM | | procedure are in the | | | | PDT | | results section. | + +--------+ + + + documented in this encounter Results ECHO Interpretation of Outside Films (12/11/2016 12:54 PM PDT) + + | Specimen | + + | | + + + + + | Impressions | Performed At | + + + | 1. Overall left ventricular systolic function is normal with, an EF | | | between 65 - 70 %. 2. The diastolic filling pattern indicates | | | impaired relaxation consistent with mild dysfunction (Grade I). 3. | | | The right ventricle is normal in size and function. 4. The left | | | atrium is mildly enlarged. 5. There is moderate aortic regurgitation. | | | 6. Mild mitral regurgitation is present, unchanged from the prior | | | study. 7. Hbfv-lc-fohjnqsa tricuspid regurgitation is present. 8. | | | There are no clinically signficant changes in comparison with the | | | previous echocardiographic study, done 02/14/16. | | + + + + + + | Narrative | Performed At | + + + | Patient Name: SHIREEN MARTINEZ Date of : 1940 | | | Performing Physician: BIBI FLOR MD | | | | | | INDICATIONS Valvular heart disease, murmur | | | CONCLUSIONS 1. Overall left ventricular systolic | | | function is normal with, an EF between 65 - 70 %. 2. The diastolic | | | filling pattern indicates impaired relaxation consistent with mild | | | dysfunction (Grade I). 3. The right ventricle is normal in size and | | | function. 4. The left atrium is mildly enlarged. 5. There is | | | moderate aortic regurgitation. 6. Mild mitral regurgitation is | | | present, unchanged from the prior study. 7. Zvpx-ct-luexmslw | | | tricuspid regurgitation is present. 8. There are no clinically | | | signficant changes in comparison with the previous echocardiographic | | | study, done 02/14/16. FINDINGS -------- ECG rhythm: Sinus rhythm. | | | Study: A 2-dimensional transthoracic echocardiogram with m-mode, | | | spectral and color flow Doppler was perfomed at [facility]. | | | Study: This was a technically adequate study. Left Ventricle: | | | Overall left ventricular systolic function is normal with, an EF | | | between 65 - 70 %. Left Ventricle: The left ventricle cavity size is | | | normal. Left Ventricle: Left ventricular wall thickness is normal. | | | Left Ventricle: No regional wall motion abnormalities. Left | | | Ventricle: The diastolic filling pattern indicates impaired relaxation | | | consistent with mild dysfunction (Grade I). Right Ventricle: The | | | right ventricle is normal in size and function. Left Atrium: The left | | | atrium is mildly enlarged. It was reported to be moderately | | | enlarged (with no dimensions reported) on the previous study. Right | | | Atrium: The right atrium is normal in size. Aortic Valve: Aortic | | | valve is trileaflet and is mildly thickened and Aortic Valve: mildly | | | calcified, particularly a nodular calcification on the left coronary | | | cusp. Aortic Valve: There is moderate aortic regurgitation. Aortic | | | Valve: There is no evidence of aortic stenosis. Mitral Valve: Mitral | | | valve is thickened. Mitral Valve: Mild mitral regurgitation is | | | present. Mitral Valve: Mild mitral annular calcification present. | | | Tricuspid Valve: The tricuspid valve appears structurally normal. | | | Tricuspid Valve: Kfsi-db-oefdnpww tricuspid regurgitation is present, | | | slightly increased from mild TR on the prior study. Tricuspid Valve: | | | There is no evidence of pulmonary hypertension. Tricuspid Valve: The | | | right ventricular systolic pressure (pulmonary artery systolic | | | pressure), as measured by Doppler, is 29.89mmHg. Pulmonic Valve: The | | | pulmonic valve is normal. Pulmonic Valve: Trace-mild pulmonic | | | regurgitation. Pericardium: There is no pericardial effusion. | | | IVC/Hepatic Veins: The IVC is normal size (1.5-2.5cm) and collapses | | | >50% with sniff, consistent with central venous pressures of 5-10mmHg. | | | Aorta: The aortic root, ascending aorta and aortic arch are normal. | | | There is no reversal of flow in the upper descending thoracic | | | aorta. Mass: No mass visualized Thrombus: No clot visualized | | | Thrombus: No vegetation visualized. Septum: No ASD observed. Septum: | | | No VSD observed. MEASUREMENTS Ao asc: 3.74 cm | | | Ao Diam: 3.[address] junct: 3.84 cm IVC: 1.68 cm LA | | | Diam: 4.87 cm LA Major: 5.81 cm EDV(Teich): 97.81 ml IVSd: | | | 0.91 cm LVIDd: 4.60 cm LVPWd: 0.87 cm LVOT Diam: 2.35 | | | cm %FS: 31.63 % EF(Teich): 59.66 % ESV(Teich): 39.45 ml | | | LVIDs: 3.15 cm SV(Teich): 58.35 ml RA Major: 4.71 cm RA | | | Minor: 5.74 cm RVIDd: 2.98 cm Ao root: 35.91 mm AI Diam: | | | 0.62 cm AIJet/LVOT: 26.49 % LVEF MOD A2C: 63.06 % SV MOD | | | A2C: 46.04 ml LVEF MOD A4C: 56.15 % SV MOD A4C: 41.32 ml | | | EF Biplane: 60.27 % LVEDV MOD BP: 75.49 ml LVESV MOD BP: | | | 29.99 ml LVEDV MOD A2C: 73.01 ml LVLd A2C: 7.33 cm LVEDV MOD | | | A4C: 73.59 ml LVLd A4C: 6.78 cm LVESV MOD A2C: 26.97 ml | | | LVLs A2C: 5.89 cm LVESV MOD A4C: 32.26 ml LVLs A4C: 6.17 cm | | | LAESV(A-L): 69.12 ml LAESV Index (A-L): 41.14 ml/m2 LAAs | | | A2C: 22.84 cm2 LAESV A-L A2C: 76.05 ml LALs A2C: 5.82 cm | | | LAAs A4C: 19.96 cm2 LAESV A-L A4C: 60.39 ml LALs A4C: 5.59 | | | cm RAAs: 16.34 cm2 RAESV A-L: 45.95 ml RAESV MOD: 44.48 ml | | | RALs: 4.93 cm TAPSE: 2.16 cm AR Dec [place]: 3.04 m/s2 AR | | | Dec Time: 1263.37 ms AR maxP.15 mmHg AR PHT: 366.37 ms | | | AR Vmax: 3.73 m/s AV maxP.99 mmHg AV meanP.84 | | | mmHg AV Vmax: 1.32 m/s AV Vmean: 0.93 m/s AV VTI: 26.81 cm | | | TOSIN Vmax: 3.69 cm2 TOSIN (VTI): 3.94 cm2 AVAI Vmax: 0.00 | | | cm2/m2 AVAI (VTI): 0.00 cm2/m2 LVOT maxP.01 mmHg LVOT | | | meanP.69 mmHg LVSI Dopp: 63.03 ml/m2 LVSV Dopp: 105.90 | | | ml LVOT Vmax: 1.12 m/s LVOT Vmean: 0.76 m/s LVOT VTI: | | | 24.25 cm MV A [place]: 1.31 m/s MV DecT: 270.12 ms MV E [place]: | | | 1.06 m/s MV E/A Ratio: 0.81 Septal e': 0.06 m/s Septal E/e': | | | 17.49 Lateral e': 0.06 m/s Lateral E/e': 17.34 RAP: 5 | | | mmHg RVSP: 29.89 mmHg TR maxP.89 mmHg TR Vmax: 2.49 | | | m/s Liability Claims Examiner: DBS Authenticated by: BIBI FLOR MD Report | | | Date/Time: -- 55_[id number]:04:36 | | + + + + + | Procedure Note | + + | Mookie Garcia - 03/12/2019 5:52 PM PDT Patient Name: Burton MARTINEZ | | of : 1940 Performing Physician: BIBI FLOR, | | MD INDICATIONS V | | alvular heart disease, murmur CONCLUSIONS 1. Overall left ventricular systolic | | function is normal with, an EF between 65 - 70 %.2. The diastolic filling pattern | | indicates impaired relaxation consistent with mild dysfunction (Grade I).3. The right | | ventricle is normal in size and function.4. The left atrium is mildly enlarged.5. There | | is moderate aortic regurgitation.6. Mild mitral regurgitation is present, unchanged from | | the prior study.7. Weao-nl-ldzquxyn tricuspid regurgitation is present. 8. There are no | | clinically signficant changes in comparison with the previous echocardiographic study, | | done 02/14/16. FINDINGS--------ECG rhythm: Sinus rhythm.Study: A 2-dimensional | | transthoracic echocardiogram with m-mode, spectral and color flow Doppler was perfomed | | at [facility].Study: This was a technically adequate study.Left Ventricle: | | Overall left ventricular systolic function is normal with, an EF between 65 - 70 %.Left | | Ventricle: The left ventricle cavity size is normal.Left Ventricle: Left ventricular | | wall thickness is normal.Left Ventricle: No regional wall motion abnormalities.Left | | Ventricle: The diastolic filling pattern indicates impaired relaxation consistent with | | mild dysfunction (Grade I).Right Ventricle: The right ventricle is normal in size and | | function.Left Atrium: The left atrium is mildly enlarged. It was reported to be | | moderately enlarged (with no dimensions reported) on the previous study.Right Atrium: | | The right atrium is normal in size.Aortic Valve: Aortic valve is trileaflet and is | | mildly thickened andAortic Valve: mildly calcified, particularly a nodular calcification | | on the left coronary cusp.Aortic Valve: There is moderate aortic regurgitation.Aortic | | Valve: There is no evidence of aortic stenosis.Mitral Valve: Mitral valve is | | thickened.Mitral Valve: Mild mitral regurgitation is present.Mitral Valve: Mild mitral | | annular calcification present.Tricuspid Valve: The tricuspid valve appears structurally | | normal.Tricuspid Valve: Ffgm-he-pirjmwps tricuspid regurgitation is present, slightly | | increased from mild TR on the prior study.Tricuspid Valve: There is no evidence of | | pulmonary hypertension.Tricuspid Valve: The right ventricular systolic pressure | | (pulmonary artery systolic pressure), as measured by Doppler, is 29.89mmHg.Pulmonic | | Valve: The pulmonic valve is normal.Pulmonic Valve: Trace-mild pulmonic | | regurgitation.Pericardium: There is no pericardial effusion.IVC/Hepatic Veins: The IVC | | is normal size (1.5-2.5cm) and collapses >50% with sniff, consistent with central venous | | pressures of 5-10mmHg.Aorta: The aortic root, ascending aorta and aortic arch are | | normal. There is no reversal of flow in the upper descending thoracic aorta.Mass: No | | mass visualizedThrombus: No clot visualizedThrombus: No vegetation visualized.Septum: No | | ASD observed.Septum: No VSD observed. MEASUREMENTS Ao asc: 3.74 cmAo | | Diam: 3.[address] junct: 3.84 cmIVC: 1.68 cmLA Diam: 4.87 cmLA Major: 5.81 | | cmEDV(Teich): 97.81 mlIVSd: 0.91 cmLVIDd: 4.60 cmLVPWd: 0.87 cmLVOT Diam: 2.35 | | cm%FS: 31.63 %EF(Teich): 59.66 %ESV(Teich): 39.45 mlLVIDs: 3.15 cmSV(Teich): | | 58.35 mlRA Major: 4.71 cmRA Minor: 5.74 cmRVIDd: 2.98 cmAo root: 35.91 mmAI | | Diam: 0.62 cmAIJet/LVOT: 26.49 %LVEF MOD A2C: 63.06 %SV MOD A2C: 46.04 mlLVEF | | MOD A4C: 56.15 %SV MOD A4C: 41.32 mlEF Biplane: 60.27 %LVEDV MOD BP: 75.49 | | mlLVESV MOD BP: 29.99 mlLVEDV MOD A2C: 73.01 mlLVLd A2C: 7.33 cmLVEDV MOD A4C: | | 73.59 mlLVLd A4C: 6.78 cmLVESV MOD A2C: 26.97 mlLVLs A2C: 5.89 cmLVESV MOD A4C: | | 32.26 mlLVLs A4C: 6.17 cmLAESV(A-L): 69.12 mlLAESV Index (A-L): 41.14 ml/m2LAAs | | A2C: 22.84 [id number] A-L A2C: 76.05 mlLALs A2C: 5.82 cmLAAs A4C: 19.96 [id number] | | A-L A4C: 60.39 mlLALs A4C: 5.59 cmRAAs: 16.34 [id number] A-L: 45.95 mlRAESV MOD: | | 44.48 mlRALs: 4.93 cmTAPSE: 2.16 cmAR Dec [place]: 3.04 m/s2AR Dec Time: 1263.37 | | msAR maxP.15 mmHgAR PHT: 366.37 msAR Vmax: 3.73 m/Ricci maxP.99 mmHgAV | | meanP.84 mmHgAV Vmax: 1.32 m/Ricci Vmean: 0.93 m/Ricci VTI: 26.81 cmAVA Vmax: | | 3.69 cm2AVA (VTI): 3.94 [id number] Vmax: 0.00 cm2/m2AVAI (VTI): 0.00 cm2/m2LVOT | | maxP.01 mmHgLVOT meanP.69 mmHgLVSI Dopp: 63.03 ml/m2LVSV Dopp: 105.90 | | mlLVOT Vmax: 1.12 m/sLVOT Vmean: 0.76 m/sLVOT VTI: 24.25 cmMV A [place]: 1.31 m/sMV | | DecT: 270.12 msMV E [place]: 1.06 m/sMV E/A Ratio: 0.81Septal e': 0.06 m/sSeptal | | E/e': 17.49Lateral e': 0.06 m/sLateral E/e': 17.34RAP: 5 mmHgRVSP: 29.89 | | mmHgTR maxP.89 mmHgTR Vmax: 2.49 m/s Liability Claims Examiner: Litzyted by: BIBI | | Eduardo FLOR Date/Time: -- [id number]:04:36 IMPRESSION: 1. Overall left | | ventricular systolic function is normal with, an EF between 65 - 70 %.2. The diastolic | | filling pattern indicates impaired relaxation consistent with mild dysfunction (Grade | | I).3. The right ventricle is normal in size and function.4. The left atrium is mildly | | enlarged.5. There is moderate aortic regurgitation.6. Mild mitral regurgitation is | | present, unchanged from the prior study.7. Fbmb-vq-fyfjyyei tricuspid regurgitation is | | present. 8. There are no clinically signficant changes in comparison with the previous | | echocardiographic study, done 02/14/16. | |EDV(Teich): 97.81 ml | |IVSd: 0.91 cm | |LVIDd: 4.60 cm | |LVPWd: 0.87 cm | |LVOT Diam: 2.35 cm | |%FS: 31.63 % | |EF(Teich): 59.66 % | |ESV(Teich): 39.45 ml | |LVIDs: 3.15 cm | |SV(Teich): 58.35 ml | |RA Major: 4.71 cm | |RA Minor: 5.74 cm | |RVIDd: 2.98 cm | |Ao root: 35.91 mm | |AI Diam: 0.62 cm | |AIJet/LVOT: 26.49 % | |LVEF MOD A2C: 63.06 % | |SV MOD A2C: 46.04 ml | |LVEF MOD A4C: 56.15 % | |SV MOD A4C: 41.32 ml | |EF Biplane: 60.27 % | |LVEDV MOD BP: 75.49 ml | |LVESV MOD BP: 29.99 ml | |LVEDV MOD A2C: 73.01 ml | |LVLd A2C: 7.33 cm | |LVEDV MOD A4C: 73.59 ml | |LVLd A4C: 6.78 cm | |LVESV MOD A2C: 26.97 ml | |LVLs A2C: 5.89 cm | |LVESV MOD A4C: 32.26 ml | |LVLs A4C: 6.17 cm | |LAESV(A-L): 69.12 ml | |LAESV Index (A-L): 41.14 ml/m2 | |LAAs A2C: 22.84 cm2 | |LAESV A-L A2C: 76.05 ml | |LALs A2C: 5.82 cm | |LAAs A4C: 19.96 cm2 | |LAESV A-L A4C: 60.39 ml | |LALs A4C: 5.59 cm | |RAAs: 16.34 cm2 | |RAESV A-L: 45.95 ml | |RAESV MOD: 44.48 ml | |RALs: 4.93 cm | |TAPSE: 2.16 cm | |AR Dec [place]: 3.04 m/s2 | |AR Dec Time: 1263.37 ms | |AR maxP.15 mmHg | |AR PHT: 366.37 ms | |AR Vmax: 3.73 m/s | |AV maxP.99 mmHg | |AV meanP.84 mmHg | |AV Vmax: 1.32 m/s | |AV Vmean: 0.93 m/s | |AV VTI: 26.81 cm | |TOSIN Vmax: 3.69 cm2 | |TOSIN (VTI): 3.94 cm2 | |AVAI Vmax: 0.00 cm2/m2 | |AVAI (VTI): 0.00 cm2/m2 | |LVOT maxP.01 mmHg | |LVOT meanP.69 mmHg | |LVSI Dopp: 63.03 ml/m2 | |LVSV Dopp: 105.90 ml | |LVOT Vmax: 1.12 m/s | |LVOT Vmean: 0.76 m/s | |LVOT VTI: 24.25 cm | |MV A [place]: 1.31 m/s | |MV DecT: 270.12 ms | |MV E [place]: 1.06 m/s | |MV E/A Ratio: 0.81 | |Septal e': 0.06 m/s | |Septal E/e': 17.49 | |Lateral e': 0.06 m/s | |Lateral E/e': 17.34 | |RAP: 5 mmHg | |RVSP: 29.89 mmHg | |TR maxP.89 mmHg | |TR Vmax: 2.49 m/s | | | |Liability Claims Examiner: DBS | |Authenticated by: BIBI FLOR MD | |Report Date/Time: -- [id number]:04:36 | | | |IMPRESSION: | |1. Overall left ventricular systolic function is normal with, an EF between 65 - 70 %. | |2. The diastolic filling pattern indicates impaired relaxation consistent with mild dysfunc tion (Grade I). | |3. The right ventricle is normal in size and function. | |4. The left atrium is mildly enlarged. | |5. There is moderate aortic regurgitation. | |6. Mild mitral regurgitation is present, unchanged from the prior study. | |7. Abkw-fs-jkqwkjfu tricuspid regurgitation is present. 8. There are no clinically signfica nt changes in comparison with the previous echocardiographic study, done 02/14/16. | + + documented in this encounter Visit Diagnoses Not on filedocumented in this encounter"
--- OUTSIDE RECORDS SUMMARY | ~2019-06-13 | XMS | Encounter Summary ---
Demographics + + + | Address | [address] | | | [place] [address] | + + + | Home Phone | | + + + | Preferred Language | Unknown | + + + | Marital Status | | + + + | Hindu Affiliation | CAT | + + + | Race | White | + + + | Ethnic Group | Not or | + + + Author + + + | Author | [facility] | + + + | Organization | [facility] | + + + | Address | Unknown | + + + | Phone | Unavailable | + + + Support + + + + + | Name | Relationship | Address | Phone | + + + + + | Jer Posey | ECON | [address] | | | | [place], [place] | | | | | [address] | | + + + + + Care Team Providers + +------+ + | Care Supervisor Graphite Name | Role | Phone | + +------+ + | Mike Saucedo MD | PCP | | + +------+ + Encounter Details +--------+ + + + + | Date | Type | Department | Care Team | Description | +--------+ + + + + | 05/30/ | Telephone | [facility] | Doug March, | | | 2010 | | [facility] [address] | [address] | | | | | [address] | [facility] | | | | | Mailcode: Center | [place], [place] | | | | | [facility] and | [address] | | | | | [facility] [address] | [phone] | | | | | [place], [place] | | | | | | [address] | | | | | | [phone] | | | +--------+ + + + [...]
--- OUTSIDE RECORDS SUMMARY | ~2019-06-13 | XMS | Encounter Summary ---
Demographics + + + | Address | [address] | | | [place] [address] | + + + | Home Phone | | + + + | Preferred Language | Unknown | + + + | Marital Status | | + + + | Anglican Affiliation | 1041 | + + + | Race | Unknown | + + + | Ethnic Group | Unknown | + + + Author + + + | Author | [facility] | | | and [place] | + + + | Organization | [facility] | | | and [...] Team Providers + +------+ + | Care Manufacturing Project Engineer Name | Role | Phone | + +------+ + | Mike Saucedo MD | PCP | | + +------+ + Encounter Details +--------+ + + + + | Date | Type | Department | Care Team | Description | +--------+ + + + + | 02/04/ | Orders Only | [facility] | Narayan Talbert | | | 2014 | | CARDIOLOGY [place] | MD [address] | | | | | [address] | [address] | | | | | [place], [place] | [place] [address] | | | | | [address] | [phone] | | | | | [phone] | | | +--------+ + + + [...] [place] | | | | | | [address] | | | | | | | | +--------+---------+ + + + | 11/04/ | Office | Pulmonology | Sukhjinder, | | | 2019 | Visit | | Windy Aldrich | | | | | | MD [address] | | | | | | [place], | | | | | | [place] [address] | | | | | | [phone] | | | | | | | | +--------+---------+ + + + documented as of this encounter Procedures + +--------+ + + + | Procedure Name | Priori | Date/Time | Associated Diagnosis | Comments | | | ty | | | | + +--------+ + + + | CBC WITH MANUAL | Routin | 02/04/2015 | | Results for this | | DIFFERENTIAL | e | 7:17 AM | | procedure are in the | | | | PDT | | results section. | + +--------+ + + + | LIPID PANEL | Routin | 02/04/2015 | | Results for this | | | e | 7:17 AM | | procedure are in the | | | | PDT | | results section. | + +--------+ + + + | COMPREHENSIVE | Routin | 02/04/2015 | | Results for this | | METABOLIC PANEL | e | 7:17 AM | | procedure are in the | | | | PDT | | results section. | + +--------+ + + + documented in this encounter Results CBC with Manual Differential (02/04/2015 7:17 AM PDT) + + + + + + | Component | Value | Ref Range | Performed | Pathologist | | | | | At | Signature | + + + + + + | WBC | 9.3 | 4.5 - 11.0 10 | EXTERNAL | | | | | | LAB | | + + + + + + | RED CELL | 4.22 | 3.8 - 5.1 10 | EXTERNAL | | | COUNT | | | LAB | | + + + + + + | Hgb | 13.1 | 12.0 - 16.0 | EXTERNAL | | | | | g/dL | LAB | | + + + + + + | Hematocrit, | 38.9 | 35 - 45 % | EXTERNAL | | | POC | | | LAB | | + + + + + + | MCV | 92.0 | 81 - 99 fL | EXTERNAL | | | | | | LAB | | + + + + + + | MCH | 31 | 27 - 33 pg | EXTERNAL | | | | | | LAB | | + + + + + + | MCHC | 34 | 30 - 36 g/dL | EXTERNAL | | | | | | LAB | | + + + + + + | RDW-CV | 13.8 | 10.5 - 15.0 % | EXTERNAL | | | | | | LAB | | + + + + + + | Platelet | 292 | 140 - 440 K/ L | EXTERNAL | | | Count | | | LAB | | | Plasma | | | | | + + + + + + | MPV | | fL | EXTERNAL | | | | | | LAB | | + + + + + + | % Segmented | 67.6 | 39 - 80 % | EXTERNAL | | | | | | LAB | | | Neutrophils | | | | | + + + + + + | % | 20.7 (A) | 24 - 44 % | EXTERNAL | | | Lymphocytes | | | LAB | | + + + + + + | % Monocytes | 8.2 | 0 - 12 % | EXTERNAL | | | | | | LAB | | + + + + + + | % | 2.3 | 0 - 6 % | EXTERNAL | | | Eosinophils | | | LAB | | + + + + + + | % Basophils | 1.2 | 0 - 2 % | EXTERNAL | | | | | | LAB | | + + + + + + | Absolute | | / L | EXTERNAL | | | Neutrophils | | | LAB | | + + + + + + | Absolute | | / L | EXTERNAL | | | Lymphocytes | | | LAB | | + + + + + + | Absolute | | / L | EXTERNAL | | | Monocytes | | | LAB | | + + + + + + | Absolute | | / L | EXTERNAL | | | Eosinophils | | | LAB | | + + + + + + | Absolute | | / L | EXTERNAL | | | Basophils | | | LAB | | + + + + + + + + | Specimen | + + | Blood specimen | | (specimen) | + + + +---------+ + + | Performing | Address | City/State/Zipcode | Phone Number | | Organization | | | | + +---------+ + + | EXTERNAL LAB | | | | + +---------+ + + Lipid Panel (02/04/2015 7:17 AM PDT) + + + + + + | Component | Value | Ref Range | Performed | Pathologist | | | | | At | Signature | + + + + + + | Cholesterol | 148 | 200 | EXTERNAL | | | | | | LAB | | + + + + + + | Triglycerid | 79 | 30 - 150 mg/dL | EXTERNAL | | | es | | | LAB | | + + + + + + | HDL | 38.4 (A) | 40 mg/dl | EXTERNAL | | | | | | LAB | | + + + + + + | LDL | 94 | 100 mg/dL | EXTERNAL | | | Cholesterol | | | LAB | | | , | | | | | | Calculated, | | | | | | External | | | | | + + + + + + | LDl/HDL | | | EXTERNAL | | | Ratio | | | LAB | | + + + + + + | Chol/HDL | 3.9 | 4.44 | EXTERNAL | | | Ratio | | | LAB | | + + + + + + | VLDL | 16 | 4 - 40 mg/dL | EXTERNAL | | | | | | LAB | | + + + + + + | Non HDL | 110 | 130 | EXTERNAL | | | Chol. | | | LAB | | | (LDL+VLDL) | | | | | + + + + + + + + | Specimen | + + | Blood specimen | | (specimen) | + + + +---------+ + + | Performing | Address | City/State/Zipcode | Phone Number | | Organization | | | | + +---------+ + + | EXTERNAL LAB | | | | + +---------+ + + Comprehensive Metabolic Panel (02/04/2015 7:17 AM PDT) + + + + + + | Component | Value | Ref Range | Performed | Pathologist | | | | | At | Signature | + + + + + + | Glucose, | 84 | 70 - 100 mg/dL | EXTERNAL | | | Fasting | | | LAB | | + + + + + + | BUN | 14 | 6 - 23 mg/dL | EXTERNAL | | | | | | LAB | | + + + + + + | Creatinine | 0.69 (A) | 0.70 - 1.18 | EXTERNAL | | | | | mg/dL | LAB | | + + + + + + | BUN/Creatin | 20.3 | 6.0 - 28.6 | EXTERNAL | | | ine Ratio | | | LAB | | + + + + + + | Calcium | 9.3 | 8.4 - 10.2 | EXTERNAL | | | | | mg/dL | LAB | | + + + + + + | Protein, | 6.7 | 6.0 - 8.0 g/dL | EXTERNAL | | | Total | | | LAB | | + + + + + + | Albumin | 3.7 | 3.5 - 5.0 | EXTERNAL | | | | | | LAB | | + + + + + + | Globulin | 3.0 | 1.8 - 3.5 | EXTERNAL | | | | | | LAB | | + + + + + + | A/G Ratio | 1.2 | 1.1 - 2.4 | EXTERNAL | | | | | | LAB | | + + + + + + | Bilirubin | 0.5 | 0.0 - 1.2 mg/dL | EXTERNAL | | | Total | | | LAB | | + + + + + + | ALP, | 75 | 30 - 128 | EXTERNAL | | | External | | | LAB | | + + + + + + | ALT | 8 | 7 - 52 U/L | EXTERNAL | | | | | | LAB | | + + + + + + | AST | 11 (A) | 13 - 39 U/L | EXTERNAL | | | | | | LAB | | + + + + + + | Na | 139 | 132 - 143 | EXTERNAL | | | | | mmol/L | LAB | | + + + + + + | K | 4.0 | 3.6 - 5.1 | EXTERNAL | | | | | mmol/L | LAB | | + + + + + + | Cl | 102 | 95 - 112 mmol/L | EXTERNAL | | | | | | LAB | | + + + + + + | CO2 | 27 | 19 - 31 mmol/L | EXTERNAL | | | | | | LAB | | + + + + + + | Anion Gap | 14.0 | 7 - 21 mmol/L | EXTERNAL | | | | | | LAB | | + + + + + + | Estimated | 83 | 60 mg/dL | EXTERNAL | | | GFR | | | LAB | | + + + + + + + + | Specimen | + + | Blood specimen | | (specimen) | + + + +---------+ + + | Performing | Address | City/State/Zipcode | Phone Number | | Organization | | | | + +---------+ + + | EXTERNAL LAB | | | | + +---------+ + + documented in this encounter Visit Diagnoses Not on filedocumented in this encounter"
--- OUTSIDE RECORDS SUMMARY | ~2019-06-13 | XMS | Encounter Summary ---
Demographics + + + | Address | [address] | | | [place] [address] | + + + | Home Phone | | + + + | Preferred Language | Unknown | + + + | Marital Status | | + + + | Moravian Affiliation | 1041 | + + + | Race | Unknown | + + + | Ethnic Group | Unknown | + + + Author + + + | Author | [facility] | | | and [place] | + + + | Organization | [facility] | | | and [...] Team Providers + +------+ + | Care Commercial Agent Name | Role | Phone | + +------+ + | Mike Saucedo MD | PCP | | + +------+ + Encounter Details +--------+ + + + + | Date | Type | Department | Care Team | Description | +--------+ + + + + | 12/24/ | Abstract | [facility] | [place], | Cough (Primary Dx); | | 2013 | | PULMONARY [address] | Jenna George MD | SOB (shortness of | | | | [place], | | breath) | | | | [place] [address] | | | | | | [phone] | | | +--------+ + + + [...] + + + | Blood Pressure | 118/66 | 11/30/2013 4:14 PM | | | | | PDT | | + + + + + | Pulse | 66 | 11/30/2013 4:14 PM | | | | | PDT | | + + + + + | Temperature | - | - | | + + + + + | Respiratory Rate | 18 | 11/30/2013 4:14 PM | | | | | PDT | | + + + + + | Oxygen Saturation | - | - | | + + + + + | Inhaled Oxygen | - | - | | | Concentration | | | | + + + + + | Weight | 60.3 kg (133 lb) | 11/30/2013 4:14 PM | | | | | PDT | | + + + + + | Height | 165.1 cm (5' 5") | 11/30/2013 4:14 PM | | | | | PDT | | + + + + + | Body Mass Index | 22.13 | 11/30/2013 4:14 PM | | | | | PDT | | + + + + + documented in this encounter Plan of Treatment +--------+---------+ + + + | Date | Type | Specialty | Care Team | Description | +--------+---------+ + + + | 07/08/ | Office | Cardiology | Nannette Morrison, | | | 2018 | Visit | | MD [address] | | | | | | [place] | | | | | | [address] | | | | | | | | +--------+---------+ + + + | 11/04/ | Office | Pulmonology | Sukhjinder, | | | 2019 | Visit | | Windy Aldrich, | | | | | | MD [address] | | | | | | [place], | | | | | | [place] [address] | | | | | | [phone] | | | | | | | | +--------+---------+ + + + documented as of this encounter Visit Diagnoses + + | Diagnosis | + + | Cough - Primary | + + | SOB (shortness of breath) Shortness of breath | + + documented in this encounter
--- OUTSIDE RECORDS SUMMARY | ~2019-06-13 | XMS | Encounter Summary ---
Demographics + + + | Address | [address] | | | [place] [address] | + + + | Home Phone | | + + + | Preferred Language | Unknown | + + + | Marital Status | | + + + | Buddhist Affiliation | 1041 | + + + | Race | Unknown | + + + | Ethnic Group | Unknown | + + + Author + + + | Author | [facility] | | | and [place] | + + + | Organization | [facility] | | | [...] Team Providers + +------+ + | Care Gold Miner Name | Role | Phone | + +------+ + | Mike Saucedo MD | PCP | | + +------+ + Encounter Details +--------+ + + + + | Date | Type | Department | Care Team | Description | +--------+ + + + + | 06/03/ | Hospital | [facility] | Conversion | Diagnosis unknown | | 2018 | Encounter | [address] | Transaction, | | | | | [address] | Provider Unknown | | | | | [place], [place] | [phone] | | | | | [address] | | | | | | [phone] | | | +--------+ + + + [...] + + + +---------+ + + | domperidone 10 mg | Take 10 mg by mouth | | 0 | | | | capsule | 4 times daily | | | | 8 | | | (before meals and | | | | | | | nightly). | | | | | + + + +---------+ + + | omeprazole | Take 20 mg by mouth | | 0 | | | | (PRILOSEC) 20 mg | every morning | | | | 8 | | capsule | (before breakfast). | | | | | + + + +---------+ + + | SPIRIVA HANDIHALER | INHALE CONTENT OF | 30 | 5 | 06/20/20 | | | 18 MCG inhalation | ONE CAPSULE BY MOUTH | capsule | | 15 | 8 | | capsule | ONCE DAILY | | | | | + + + +---------+ + + documented as of this encounter Plan of Treatment +--------+---------+ + + + | Date | Type | Specialty | Care Team | Description | +--------+---------+ + + + | 07/08/ | Office | Cardiology | Nannette Morrison, | | | 2018 | Visit | | [address] | | | | | | [place] | | | | | | [address] | | | | | | | | +--------+---------+ + + + | 11/04/ | Office | Pulmonology | Sukhjinder, | | | 2019 | Visit | | Windy Aldrich, | | | | | | MD [address] | | | | | | [place], | | | | | | [place] [address] | | | | | | [phone] | | | | | | | | +--------+---------+ + + + documented as of this encounter Procedures + +--------+ + + + | Procedure Name | Priori | Date/Time | Associated Diagnosis | Comments | | | ty | | | | + +--------+ + + + | CT CHEST WO CONTRAST | Routin | 06/02/2018 | | Results for this | | | e | 6:25 PM | | procedure are in the | | | | PST | | results section. | + +--------+ + + + documented in this encounter Results CT Chest wo Contrast (06/02/2018 6:25 PM PST) + + | Specimen | + + | | + + + + + | Narrative | Performed At | + + + | This is a non-reportable procedure without a radiologist report and | | | is used for image storage only | | + + + + + | Procedure Note | + + | Mookie Garcia - 03/04/2019 4:46 AM PDT This is a non-reportable procedure | | without a radiologist report and isused for image storage only | + + documented in this encounter Visit Diagnoses + + | Diagnosis | + + | Diagnosis unknown Other unknown and unspecified cause of morbidity or mortality | + + documented in this encounter"
--- OUTSIDE RECORDS SUMMARY | ~2019-06-13 | XMS | Encounter Summary ---
Demographics + + + | Address | [address] | | | [place] [address] | + + + | Home Phone | | + + + | Preferred Language | Unknown | + + + | Marital Status | | + + + | Nondenominational Affiliation | CAT | + + + | Race | White | + + + | Ethnic Group | Not or | + + + Author + + + | Author | [facility] | + + + | Organization | [facility] | + + + | Address | Unknown | + + + | Phone | Unavailable | + + + Support + + + + + | Name | Relationship | Address | Phone | + + + + + | Jer Posey | ECON | [address] | | | | [place], [place] | | | | | [address] | | + + + + + Care Team Providers + +------+ + | Care Bander And Cellophaner Machine Helper Name | Role | Phone | + +------+ + | Mike Saucedo MD | PCP | | + +------+ + Encounter Details +--------+ + + + + | Date | Type | Department | Care Team | Description | +--------+ + + + + | 09/23/ | Telephone | [facility] | Doug March, | | | 2011 | | [facility] [address] | [address] | | | | | [address] | [facility] | | | | | Mailcode: Center | [place], [place] | | | | | [facility] and | [address] | | | | | [facility] [address] | [phone] | | | | | [place], [place] | | | | | | [address] | | | | | | [phone] | | | +--------+ + + + [...]
--- OUTSIDE RECORDS SUMMARY | ~2019-06-13 | XMS | Encounter Summary ---
Demographics + + + | Address | [address] | | | [place] [address] | + + + | Home Phone | | + + + | Preferred Language | Unknown | + + + | Marital Status | | + + + | Christianity Affiliation | 1041 | + + + | Race | Unknown | + + + | Ethnic Group | Unknown | + + + Author + + + | Author | [facility] | | | and [place] | + + + | Organization | [facility] | | [...] Team Providers + +------+ + | Care Manager Non Profit Name | Role | Phone | + +------+ + | Mike Saucedo MD | PCP | | + +------+ + Reason for Visit Auth/Cert +--------+--------+ + + + + | Status | Reason | Specialty | Diagnoses / | Referred By | Referred To | | | | | Procedures | Contact | Contact | +--------+--------+ + + + + | | | | Diagnoses | | | | | | | Right | | | | | | | Femoral Neck | | | | | | | Fracture | | | +--------+--------+ + + + + Encounter Details +--------+ + + + + | Date | Type | Department | Care Team | Description | +--------+ + + + + | 07/13/ | Anesthesia | [facility] | Oren Sebastian, | | | 2018 | Event | [facility] | MD [address] | | | | | [address] | [place] | | | | | [place] | [phone] | | | | | [address] | | | | | | [phone] | | | +--------+ + + + + Anesthesia Record + + + + + | Procedure Name | Responsible | Anesthesia Start | Anesthesia Stop Time | | | Anesthesiologist | Time | | + + + + + | HEMIARTHROPLASTY HIP | Oren Sebastian MD | 07/13/18 0947 | 07/13/18 1149 | | (Right Hip) | | | | + + + + + +----+---+ + + | Da | T | Event | Comment | | te | i | | | | | m | | | | | e | | | +----+---+ + + | 12 | 0 | | | | /2 | 9 | | | | 3/ | 1 | | | | 20 | 7 | | | | 18 | | | | +----+---+ + + | | 0 | An Checkout | Pre-use anesthesia machine/equipment checkout. | | | 9 | | | | | 2 | | | | | 4 | | | +----+---+ + + | | 0 | Pre-Procedu | | | | 9 | ral Timeout | | | | 4 | Completed | | | | 1 | | | +----+---+ + + | | 0 | An Start | | | | 9 | Data | | | | 4 | | | | | 1 | | | +----+---+ + + | | 0 | Block Start | | | | 9 | | | | | 4 | | | | | 3 | | | +----+---+ + + | | 0 | AN Block | | | | 9 | End | | | | 4 | | | | | 7 | | | +----+---+ + + | | 0 | An Start | Reassessment prior to anesthesia induction/procedure. | | | 9 | | | | | 4 | | | | | 7 | | | +----+---+ + + | | 0 | Preoxygenat | | | | 9 | ed | | | | 4 | | | | | 9 | | | +----+---+ + + | | 0 | An | | | | 9 | Induction | | | | 5 | | | | | 0 | | | +----+---+ + + | | 0 | An | | | | 9 | Intubation | | | | 5 | | | | | 1 | | | +----+---+ + + | | 0 | AN Bite | | | | 9 | Block | | | | 5 | | | | | 2 | | | +----+---+ + + | | 0 | Antibiotic | | | | 9 | Given | | | | 5 | | | | | 9 | | | +----+---+ + + | | 1 | [place] | | | | 0 | 43-degrees | | | | 1 | | | | | 3 | | | +----+---+ + + | | 1 | First | | | | 0 | Inc/Proc St | | | | 1 | | | | | 6 | | | +----+---+ + + | | 1 | [place] off | | | | 1 | | | | | 3 | | | | | 9 | | | +----+---+ + + | | 1 | an stop | | | | 1 | data | | | | 4 | | | | | 2 | | | +----+---+ + + | | 1 | An Stop | Patient handed off to recovery nurse. | | | 4 | | | | | 9 | | | +----+---+ + + +------+ | Meds | +------+ + + + | Name | Total | + + + | fentaNYL | 175 mcg | + + + | HYDROmorphone | 0.8 mg | + + + | lidocaine 2% (PF) | 60 mg | + + + | propofol | 100 mg | + + + | dexamethasone | 10 mg | + + + | ondansetron | 4 mg | + + + | ropivacaine 0.5% | 15 mL | + + + | ePHEDrine (AKOVAZ) injection 50 | 25 mg | | mg/mL | | + + + | tranexamic acid | 1,500 mg | + + + | ceFAZolin | 2 g | + + + | ketamine | 50 mg | + + + | LR (Infusion) | 750 mL | + + + + + | Name | + + | N2O Flow Rate (L/Min) | + + | O2 Flow Rate (L/Min) | + + | Insp O2 | + + | Exp SEV | + + | Air Flow Rate (L/Min) | + + + + | No blood administrations on file. | + + +--------+ + + + | Type | Details | Placement | Removal | +--------+ + + + | Urethr | 07/12/18; yes; indicated due to | 07/12/18 0000 by | 07/14/18 1919 by | | al | specific surgical procedure; | Tanesha Henry, | Windy Cisneros, | | Cathet | indwelling single lumen catheter; | RN | RN | | er | urethral catheter removed, per | | | | | protocol/policy, tubing intact; | | | | | short term use; 07/14/18; 1919 | | | +--------+ + + + | Periph | 07/12/18; yes; Left; Distal; | 07/12/18 0000 by | 07/15/18 0800 by | | eral | Wrist; no longer indicated, | Tanesha Henry, | Kami Lisa RN | | IV | catheter/device intact; healing | RN | | | | within expectations; 07/15/18; | | | | | 0800 | | | +--------+ + + + | Airway | Placement Date: 07/13/18; | 07/13/18950 by | 07/13/18 114 by Jaden | | | Placement Time: 950 (created via | Oren Sebastian MD | Casandra Funes RN | | | procedure documentation); Mask | | | | | Ventilation: EZ; Attempts: 1; | | | | | Airway Type: laryngeal mask; | | | | | Size: 4; Trauma: none; Placement | | | | | Check: exhaled CO2 detection | | | | | device; Removal: removed by RN, | | | | | per protocol; Removal Date: | | | | | 07/13/18; Removal Time: 1149 | | | +--------+ + + + | Read | 07/13/18; 1038; Right; hip; | 07/13/18 1038 by | 07/17/18 1330 by | | only - | healing within expectations; | Paula Bro RN | Fany Iqbal, | | | 07/17/18; 1330 | | RN | | Incisi | | | | | on | | | | +--------+ + + + documented in this encounter Social History + + + +--------+ + [...] [place] | | | | | | [address] | | | | | | | | +--------+---------+ + + + | 11/04/ | Office | Pulmonology | Sukhjinder, | | | 2019 | Visit | | Windy Aldrich, | | | | | | [address] | | | | | | [place], | | | | | | [place] [address] | | | | | | [phone] | | | | | | | | +--------+---------+ + + + documented as of this encounter Procedures + +--------+ + + + | Procedure Name | Priori | Date/Time | Associated Diagnosis | Comments | | | ty | | | | + +--------+ + + + | ANE NERVE BLOCK | Routin | 07/13/2018 | | Results for this | | CATHETER NOTE | e | 10:11 AM | | procedure are in the | | | | PST | | results section. | + +--------+ + + + | ANE AIRWAY NOTE | Routin | 07/13/2018 | | Results for this | | | e | 10:11 AM | | procedure are in the | | | | PST | | results section. | + +--------+ + + + documented in this encounter Results Anesthesia Perineural Note (07/13/2018 10:11 AM PST) + + + | Narrative | Performed At | + + + | Oren Sebastian MD 07/13/2018 10:12 Perineural Procedure Note | | | 07/13/2018 9:47 Nerve block: femoral (Femoral / Obturator / LFCN | | | ) Laterality: right Continuous block with catheter: No Provider | | | requested procedure: Wallace Indication: postoperative analgesia | | | Preprocedure check: patient identified, procedure and rescue | | | equipment checked, preevaluation including airway assessment | | | complete, risks/benefits discussed, consent obtained, timeout | | | performed, reassessment prior to procedure and monitors applied | | | Patient position: supine Preparation: chlorhexidine/isopropyl alcohol | | | Technique: ultrasound Radiology image stored in patient's chart: | | | ultrasound Needle: stimulating and insulated Needle size: 21 g | | | Needle length: 4 in Medication administered through: needle Negative | | | findings: no blood aspirated and no paresthesia Total volume of | | | local anesthetic solution administered: 15 (Incremental injection in | | | 3-4 mL increments with negative aspiration each time.) mL Attempts: | | | 1 Ease of procedure: easy Comments: Regional block placed for | | | postoperative pain control at request of patient and surgeon. | | | Ultrasound utilized throughout entirety of procedure for the | | | purposes of directing the needle to nerve proximity and watching | | | spread of local anesthetic. Positive level and "donut" sign. | | | Ultrasound image in chart. NIBP/SpO2 monitoring. Please see | | | anesthesia record or flowsheet for vital sign documentation and see | | | anesthesia record or MAR for all medication documentation. | | | Performing provider: OREN SEBASTIAN Field Clinical Engineer: Namrata Bro RN | | | Electronically Signed by: Oren Sebastian MD | | | ESig date/time: 07/13/2018 10:11 | | + + + + + | Procedure Note | + + | Oren Sebastian MD - 07/13/2018 10:11 AM PST Perineural Procedure Note07/13/2018 | | 9:47Nerve block: femoral (Femoral / Obturator / LFCN )Laterality: rightContinuous block | | with catheter: NoProvider requested procedure: HendersonIndication: postoperative | | analgesiaPreprocedure check: patient identified, procedure and rescue equipment checked, | | preevaluation including airway assessment complete, risks/benefits discussed, consent | | obtained, timeout performed, reassessment prior to procedure and monitors appliedPatient | | position: supinePreparation: chlorhexidine/isopropyl alcoholTechnique: | | ultrasoundRadiology image stored in patient's chart: ultrasoundNeedle: stimulating and | | insulatedNeedle size: 21 gNeedle length: 4 inMedication administered through: | | needleNegative findings: no blood aspirated and no paresthesiaTotal volume of local | | anesthetic solution administered: 15 (Incremental injection in 3-4 mL increments with | | negative aspiration each time.) mLAttempts: 1Ease of procedure: easyComments: Regional | | block placed for postoperative pain control at request of patient and surgeon. | | Ultrasound utilized throughout entirety of procedure for the purposes of directing the | | needle to nerve proximity and watching spread of local anesthetic. Positive level and | | "donut" sign. Ultrasound image in chart. NIBP/SpO2 monitoring.Please see anesthesia | | record or flowsheet for vital sign documentation and see anesthesia record or MAR for | | all medication documentation.Performing provider: OREN SEBASTIAN TAssistant: Namrata Bro, | | RNElectronically Signed by: Oren Sebastian MD [facility] date/time: | | 07/13/2018 10:11 | |Ease of procedure: easy | | | |Comments: Regional block placed for postoperative pain control at request of patient and white rgeon. Ultrasound utilized throughout entirety of procedure for the purposes of directing t he needle to nerve proximity and | |watching spread of local anesthetic. Positive level and "donut" sign. Ultrasound image in chart. NIBP/SpO2 monitoring. | | | | | |Please see anesthesia record or flowsheet for vital sign documentation and see anesthesia r ecord or MAR for all medication documentation. | | | | | |Performing provider: OREN SEBASTIAN | |Field Clinical Engineer: Namrata Bro RN | | | | | | | |Electronically Signed by: MD Ayanna Kennedy date/time: 8 10:11 | + + Anesthesia Airway Note (07/13/2018 10:11 AM PST) + + + | Narrative | Performed At | + + + | Oren Sebastian MD 07/13/2018 10:11 Anesthesia Airway | | | Placement 07/13/2018 9:51 Preprocedure check: patient identified, | | | suction, airway equipment checked, oxygen, airway assessed and | | | patient reassessment prior to induction Rapid Sequence Induction: no | | | Mask ventilation: easy Attempts: 1 Airway type: laryngeal mask | | | Size: 4 Cuffed: cuffed Route, reference point: center of mouth | | | Trauma: none Tube placement verification: carbon dioxide detection | | | Performing provider: OREN SEBASTIAN Electronically Signed by: | | | Oren Sebastian MD ESig | | | date/time: 07/13/2018 10:11 | | + + + + + | Procedure Note | + + | Oren Sebastian MD - 07/13/2018 10:11 AM PST Anesthesia Airway Tfezaxlnh44/23/2018 | | 9:51Preprocedure check: patient identified, suction, airway equipment checked, oxygen, | | airway assessed and patient reassessment prior to inductionRapid Sequence Induction: | | noMask ventilation: easyAttempts: 1Airway type: laryngeal maskSize: 4Cuffed: | | cuffedRoute, reference point: center of mouthTrauma: noneTube placement verification: | | carbon dioxide detectionPerforming provider: OREN SEBASTIAN TElectronically Signed by: | | Oren Sebastian MD ESi date/time: 07/13/2018 10:11 | | | |Size: 4 | |Cuffed: cuffed | |Route, reference point: center of mouth | |Trauma: none | |Tube placement verification: carbon dioxide detection | |Performing provider: OREN SEBASTIAN | | | | | |Electronically Signed by: Oren Sebastian MD ESig date/time: 10:11 | | | + + documented in this encounter Visit Diagnoses Not on filedocumented in this encounter Administered Medications + +--------+ +------+------+------+ | Medication Order | MAR | Action | Dose | Rate | Site | | | Action | Date | | | | + +--------+ +------+------+------+ | ceFAZolin (ANCEF, KEFZOL) | Given | 07/13/20 | 2 g | | | | injection Intravenous, PRN, | | 18 9:59 | | | | | Starting 07/13/18 at 0959, | | AM PST | | | | | Anesthesia Intra-op | | | | | | + +--------+ +------+------+------+ +---+---+ | | | +---+---+ + +-------+ +-------+---+---+ | dexamethasone (PF) 10 mg/mL | Given | 07/13/20 | 10 mg | | | | injection Intravenous, PRN, | | 18 10:00 | | | | | Starting 07/13/18 at 1000, | | AM PST | | | | | Anesthesia Intra-op | | | | | | + +-------+ +-------+---+---+ +---+---+ | | | +---+---+ + +-------+ +-------+---+---+ | ePHEDrine (AKOVAZ) 50 mg/mL | Given | 07/13/20 | 10 mg | | | | injection Intravenous, PRN, | | 18 10:04 | | | | | Starting 07/13/18 at 0956, | | AM PST | | | | | Anesthesia Intra-op | | | | | | + +-------+ +-------+---+---+ +-------+ +-------+---+---+ | Given | 07/13/20 | 15 mg | | | | | 18 9:56 | | | | | | AM PST | | | | +-------+ +-------+---+---+ +---+---+ | | | +---+---+ + +-------+ +--------+---+---+ | fentaNYL (PF) injection | Given | 07/13/20 | 25 mcg | | | | Intravenous, PRN, Pain, Starting | | 18 10:14 | | | | | 07/13/18 at 1014, Anesthesia | | AM PST | | | | | Intra-op | | | | | | + +-------+ +--------+---+---+ +-------+ +--------+---+---+ | Given | 07/13/20 | 75 mcg | | | | | 18 9:50 | | | | | | AM PST | | | | +-------+ +--------+---+---+ | Given | 07/13/20 | 75 mcg | | | | | 18 9:43 | | | | | | AM PST | | | | +-------+ +--------+---+---+ +---+---+ | | | +---+---+ + +-------+ +--------+---+---+ | HYDROmorphone (DILAUDID) 2 | Given | 07/13/20 | 0.8 mg | | | | mg/mL injection Intravenous, | | 18 10:46 | | | | | PRN, Pain, Starting 07/13/18 | | AM PST | | | | | at 1046, Anesthesia Intra-op | | | | | | + +-------+ +--------+---+---+ +---+---+ | | | +---+---+ + +-------+ +-------+---+---+ | ketamine 50 mg/mL injection | Given | 07/13/20 | 25 mg | | | | PRN, Starting [place] 07/13/18 at | | 18 10:15 | | | | | 1009, Anesthesia Intra-op | | AM PST | | | | + +-------+ +-------+---+---+ +-------+ +-------+---+---+ | Given | 07/13/20 | 25 mg | | | | | 18 10:09 | | | | | | AM PST | | | | +-------+ +-------+---+---+ +---+---+ | | | +---+---+ + +---------+ +--------+-------+---+ | lactated ringers (LR) infusion | New Bag | 07/13/20 | 1,000 | 100 | | | Intravenous, CONTINUOUS PRN, | | 18 12:04 | mLs | mL/hr | | | Starting 07/13/18 at 0941, | | PM PST | | | | | Anesthesia Intra-op | | | | | | + +---------+ +--------+-------+---+ +---------+ +---+---+---+ | New Bag | 07/13/20 | | | | | | 18 9:41 | | | | | | AM PST | | | | +---------+ +---+---+---+ +---+---+ | | | +---+---+ + +-------+ +-------+---+---+ | lidocaine (PF) 2% injection | Given | 07/13/20 | 60 mg | | | | PRN, Starting 07/13/18 at | | 18 9:50 | | | | | 0950, Anesthesia Intra-op | | AM PST | | | | + +-------+ +-------+---+---+ +---+---+ | | | +---+---+ + +-------+ +------+---+---+ | ondansetron (ZOFRAN) injection | Given | 07/13/20 | 4 mg | | | | PRN, Nausea, Vomiting, Starting | | 18 10:00 | | | | | 07/13/18 at 1000, Anesthesia | | AM PST | | | | | Intra-op | | | | | | + +-------+ +------+---+---+ +---+---+ | | | +---+---+ + +-------+ +-------+---+---+ | propofol (DIPRIVAN) injection | Given | 07/13/20 | 30 mg | | | | Intravenous, PRN, Starting Sun | | 18 11:40 | | | | | 07/13/18 at 0950, Anesthesia | | AM PST | | | | | Intra-op | | | | | | + +-------+ +-------+---+---+ +-------+ +-------+---+---+ | Given | 07/13/20 | 70 mg | | | | | 18 9:50 | | | | | | AM PST | | | | +-------+ +-------+---+---+ +---+---+ | | | +---+---+ + +-------+ +--------+---+---+ | ropivacaine (NAROPIN) 5 mg/mL | Given | 07/13/20 | 15 mLs | | | | (0.5%) injection PERINEURAL, | | 18 9:47 | | | | | PRN, Starting 07/13/18 at | | AM PST | | | | | 0947, Anesthesia Intra-op | | | | | | + +-------+ +--------+---+---+ +---+---+ | | | +---+---+ + +-------+ +--------+---+---+ | tranexamic acid (CYKLOKAPRON) | Given | 07/13/20 | 500 mg | | | | injection Intravenous, | | 18 11:23 | | | | | Administer over 15 Minutes, PRN, | | AM PST | | | | | Starting 07/13/18 at 0956, | | | | | | | Anesthesia Intra-op | | | | | | + +-------+ +--------+---+---+ +-------+ + +---+---+ | Given | 07/13/20 | 1,000 mg | | | | | 18 9:56 | | | | | | AM PST | | | | +-------+ + +---+---+ +---+---+ | | | +---+---+ documented in this encounter
--- OUTSIDE RECORDS SUMMARY | ~2019-06-13 | XMS | Encounter Summary ---
Demographics + + + | Address | [address] | | | [place] [address] | + + + | Home Phone | | + + + | Preferred Language | Unknown | + + + | Marital Status | | + + + | Episcopal Affiliation | 1041 | + + + | Race | Unknown | + + + | Ethnic Group | Unknown | + + + Author + + + | Author | [facility] | | | and [place] | + + + | Organization | [facility] | | | and [...] Team Providers + +------+ + | Care Pond Sawyer Name | Role | Phone | + +------+ + | Mike Saucedo MD | PCP | | + +------+ + Reason for Referral Evaluate & Treat (Routine) +--------+ + + + + + | Status | Reason | Specialty | Diagnoses / | Referred By | Referred To | | | | | Procedures | Contact | Contact | +--------+ + + + + + | Closed | Specialty | Physical | Diagnoses | [facility], | [facility] | | Services | Therapy | Weakness of | Matti | HOSPITAL | | | Required | | right hip | [address] | PHYSICAL | | | | | S/P | [address]AP[address] | | | | | orthopedic | [facility] | [place] | | | | | surgery, | [place] | [place] | | | | | follow-up | [address] | [address] | | | | | exam | Phone: | Phone: | | | | | | [phone] | [phone] | | | | | | Fax: | Fax: | | | | | | [phone] | [phone] | +--------+ + + + + + Encounter Details +--------+ + + + + | Date | Type | Department | Care Team | Description | +--------+ + + + + | 10/02/ | Orders Only | [facility] | Matti Magallanes | Weakness of right | | 2019 | | ORTHOPEDIC SURGERY | [address] | hip (Primary Dx); | | | | [address] [facility] | [address] [facility] | S/P orthopedic | | | | [place] | [place] [address] | surgery, follow-up | | | | [address] | [phone] | exam | | | | [phone] | | | +--------+ + + + [...] Description | +--------+---------+ + + + | 12/18/ | Office | Cardiology | Nannette Morrison, | | | 2018 | Visit | | MD [address] | | | | | | [place] | | | | | | [address] | | | | | | | | +--------+---------+ + + + | 11/04/ | Office | Pulmonology | Sukhjinder, | | | 2019 | Visit | | Windy Aldrich, | | | | | | MD [address] | | | | | | [place], | | | | | | [place] [address] | | | | | | [phone] | | | | | | | | +--------+---------+ + + + + + +--------+ + + | Name | Type | Priori | Associated Diagnoses | Order Schedule | | | | ty | | | + + +--------+ + + | Physical Therapy - | Outpatient | Routin | Weakness of right | Ordered: 10/02/2018 | | Ambulatory Referral | Referral | e | hip S/P orthopedic | | | | | | surgery, follow-up | | | | | | exam | | + + +--------+ + + documented as of this encounter Visit Diagnoses + + | Diagnosis | + + | Weakness of right hip - Primary | + + | S/P orthopedic surgery, follow-up exam Follow-up examination, following other surgery | + + documented in this encounter"
--- OUTSIDE RECORDS SUMMARY | ~2019-06-13 | XMS | Encounter Summary ---
Demographics + + + | Address | [address] | | | [place] [address] | + + + | Home Phone | | + + + | Preferred Language | Unknown | + + + | Marital Status | | + + + | Amish Affiliation | 1041 | + + + | Race | Unknown | + + + | Ethnic Group | Unknown | + + + Author + + + | Author | [facility] | | | and [place] | + + + | Organization | [facility] | | | and [place] | + + + | Address | Unknown | + + + | Phone | Unavailable | + + + Support + + +---------+ + | Name | Relationship | Address | Phone | + + +---------+ + | Sade Beckwith | ECON | Unknown | | + + +---------+ + | Epworthgracie Red) | ECON | Unknown | | | Kalpesh | | | | + + +---------+ + Care Team Providers + +------+ + | Care Adventure Education Teacher Name | Role | Phone | + [...] | bronchitis (HCC) | | | | [place], | | | | | | [place] [address] | | | | | | [phone] | | | +--------+ + + + [...] [place] | | | | | | [address] | | | | | | | | +--------+---------+ + + + | 11/04/ | Office | Pulmonology | Sukhjinder, | | | 2019 | Visit | | Windy Aldrich, | | | | | | MD [address] | | | | | | [place], | | | | | | [place] [address] | | | | | | [phone] | | | | | | | | +--------+---------+ + + + documented as of this encounter Visit Diagnoses + + | Diagnosis | + + | Obstructive chronic bronchitis (HCC) Obstructive chronic bronchitis without | | exacerbation | + + documented in this encounter"
--- OUTSIDE RECORDS SUMMARY | ~2019-06-13 | XMS | Encounter Summary ---
Demographics + + + | Address | [address] | | | [place] [address] | + + + | Home Phone | | + + + | Preferred Language | Unknown | + + + | Marital Status | | + + + | Mandaeism Affiliation | 1041 | + + + [...] | | + + +---------+ + | Powhatangracie Red) | ECON | Unknown | | | Kalpesh | | | | + + +---------+ + Care Team Providers + +------+ + | Care Neonatologist Name | Role | Phone | + +------+ + | Mike Saucedo MD | PCP | | + +------+ + Encounter Details +--------+ + + + + | Date | Type | Department | Care Team | Description | +--------+ + + + + | 03/11/ | Orders Only | [facility] | Sunitha Aguirre, | Pulmonary | | 2015 | | PULMONARY [address] | RN | 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
--- OUTSIDE RECORDS SUMMARY | ~2019-06-13 | XMS | Encounter Summary ---
Demographics + + + | Address | [address] | | | [place] [address] | + + + | Home Phone | | + + + | Preferred Language | Unknown | + + + | Marital Status | | + + + | Confucianist Affiliation | 1041 | + + + | Race | Unknown | + + + | Ethnic Group | Unknown | + + + Author + + + | Author | [facility] | | | and [place] | + + + | Organization | [facility] | | [...] Team Providers + +------+ + | Care Biology Manager Name | Role | Phone | + +------+ + | Mike Saucedo MD | PCP | | + +------+ + Encounter Details +--------+ + + + + | Date | Type | Department | Care Team | Description | +--------+ + + + + | 05/21/ | Hospital | [facility] GENER[facility] IP | Conversion | Pain | | 2016 | Encounter | [address]VERSION [address] | Transaction, | | | | [address] | Provider Unknown | | | | | [place] | [phone] | | | | | [address] | | | | | | [phone] | | | +--------+ + + + [...] 99 | 1 each | 1 | 06/04/ | | | (ACAPELLA) MISC | months Use as | | | 14 | | | | directed twice | | | | | | | daily. | | | | | + + + +---------+ + + | BABY ASPIRIN PO | Take 81 mg by mouth. | | 0 | | | | | | | | | 6 | + + + +---------+ + + [...] 0 | | | | capsule | 3 times daily | | | | 6 | | | (before meals). | | | | | + + + +---------+ + + | metroNIDAOLE | Apply 1 Application | | 0 | | | | (METROLOTION) 0.75 % | topically Daily. | | | | 6 | | LOTN | | | | | | + + + +---------+ + + | omeprazole | TK 1 C PO 30 MIN B | | 3 | 12/11/19 | | | (PRILOSEC) 20 mg | DINNER | | | 16 | 6 | | capsule | | | | [...] [place] | | | | | | [address] | | | | | | | | +--------+---------+ + + + | 11/04/ | Office | Pulmonology | Sukhjinder, | | | 2019 | Visit | | Windy Aldrich, | | | | | | MD [address] | | | | | | [place], | | | | | | [place] [address] | | | | | | [phone] | | | | | | | | +--------+---------+ + + + documented as of this encounter Procedures + +--------+ + + + | Procedure Name | Priori | Date/Time | Associated Diagnosis | Comments | | | ty | | | | + +--------+ + + + | XR CHEST 2 VIEWS | Routin | 05/06/2014 | | Results for this | | | e | 11:01 PM | | procedure are in the | | | | PDT | | results section. | + +--------+ + + + documented in this encounter Results XR Chest 2 Vws (05/06/2014 11:01 PM PDT) + + | Specimen | + + | | + + + + + | Narrative | Performed At | + + + | This is a non-reportable procedure without a radiologist report and | | | is used for image storage only | | + + + + + | Procedure Note | + + | Mookie Garcia Conversion - 03/05/2019 1:13 PM PDT This is a non-reportable procedure | | without a radiologist report and isused for image storage only | + + documented in this encounter Visit Diagnoses + + | Diagnosis | + + | Pain Generalized pain | + + documented in this encounter"
--- OUTSIDE RECORDS SUMMARY | ~2019-06-13 | XMS | Encounter Summary ---
Demographics + + + | Address | [address] | | | [place] [address] | + + + | Home Phone | | + + + | Preferred Language | Unknown | + + + | Marital Status | | + + + | Buddhism Affiliation | 1041 | + + + | Race | Unknown | + + + | Ethnic Group | Unknown | + + + Author + + + | Author | [facility] | | | and [place] | + + + | Organization | [facility] | | | and [...] Providers + +------+ + | Care Supervisor Vendor Quality Name | Role | Phone | + +------+ + | Mike Saucedo MD | PCP | | + +------+ + Encounter Details +--------+ + + + + | Date | Type | Department | Care Team | Description | +--------+ + + + + | 02/19/ | Orders Only | [facility] | Sukhjinder, | | | 2016 | | [address] | Windy Aldrich, | | | | | [place] | [address] | | | | | [address] | [place], | | | | | [phone] | [place] [address] | | | | | | [phone] | | | | | | | [...] [place] | | | | | | [address] | | | | | | | | +--------+---------+ + + + | 11/04/ | Office | Pulmonology | Sukhjinder, | | | 2020 | Visit | | Windy Aldrich, | | | | | | [address] | | | | | | [place], | | | | | | [place] [address] | | | | | | [phone] | | | | | | | | +--------+---------+ + + + documented as of this encounter Procedures + +--------+ + + + | Procedure Name | Priori | Date/Time | Associated Diagnosis | Comments | | | ty | | | | + +--------+ + + + | CULTURE, AFB, AND | Routin | 02/19/2017 | | Results for this | | SMEAR | e | 12:20 PM | | procedure are in the | | | | PDT | | results section. | + +--------+ + + + documented in this encounter Results Culture, AFB, and Smear (02/19/2017 12:20 PM PDT) + + | Specimen | + + | Body fluid sample | | (specimen) | + + + + + | Narrative | Performed At | + + + | Specimen Description SPUTUM AFB STAIN | EXTERNAL LAB | | NO ACID FAST BACILLI SEEN CULTURE | | | NO ACID FAST BACILLI | | | ISOLATED | | + + + + +---------+ + + | Performing | Address | City/State/Zipcode | Phone Number | | Organization | | | | + +---------+ + + | EXTERNAL LAB | | | | + +---------+ + + documented in this encounter Visit Diagnoses Not on filedocumented in this encounter"
--- OUTSIDE RECORDS SUMMARY | ~2019-06-13 | XMS | Encounter Summary ---
Demographics + + + | Address | [address] | | | [place] [address] | + + + | Home Phone | | + + + | Preferred Language | Unknown | + + + | Marital Status | | + + + | Buddhism Affiliation | 1041 | + + + | Race | Unknown | + + + | Ethnic Group | Unknown | + + + Author + + + | Author | [facility] | | | and [place] | + + + | Organization | [facility] | | | and [place] | + + + | Address | Unknown | + + + | Phone | Unavailable | + + + Support + + +---------+ + | Name | Relationship | Address | Phone | + + +---------+ + | Sade Beckwith | ECON | Unknown | | + + +---------+ + | Newnangracie Red) | ECON | Unknown | | | [place] | | | | + + +---------+ + Care Team Providers + +------+ + | Care Lapel Padder Name | Role | Phone | + +------+ + | Mike Saucedo MD | PCP | | + +------+ + Encounter Details +--------+ + + + + | Date | Type | Department | Care Team | Description | +--------+ + + + + | 02/11/ | Orders Only | [facility] | Provider, | Bronchiectasis | | 2019 | | SYSTEM GENERIC OP | MD [address] | without complication | | | | CONVERSION [address] | [address] | ([facility]) | | | | [address] [place], [place] | [place] [address] | | | | | [address] | | | | | | [phone] | | | +--------+ + + + [...] [place] | | | | | | [address] | | | | | | | | +--------+---------+ + + + | 11/04/ | Office | Pulmonology | Sukhjinder, | | | 2019 | Visit | | Windy Aldrich, | | | | | | MD [address] | | | | | | [place], | | | | | | [place] [address] | | | | | | [phone] | | | | | | | | +--------+---------+ + + + + + +--------+ + + | Name | Type | Priori | Associated Diagnoses | Order Schedule | | | | ty | | | + + +--------+ + + | Culture, AFB, and | Microbiolog | Routin | Bronchiectasis | Expected: | | Smear with Reflex | y | e | without complication | 05/20/2018, Expires: | | | | | (HCC) | 05/20/2019 | + + +--------+ + + documented as of this encounter Visit Diagnoses + + | Diagnosis | + + | Bronchiectasis without complication (HCC) Bronchiectasis without acute exacerbation | + + documented in this encounter"
--- OUTSIDE RECORDS SUMMARY | ~2019-06-13 | XMS | Encounter Summary ---
Demographics + + + | Address | [address] | | | [place] [address] | + + + | Home Phone | | + + + | Preferred Language | Unknown | + + + | Marital Status | | + + + | Mosque Affiliation | 1041 | + + + [...] | | + + +---------+ + | Hickmangracie Red) | ECON | Unknown | | | [place] | | | | + + +---------+ + Care Team Providers + +------+ + | Care Senior Telecommunications Engineer Name | Role | Phone | + +------+ + | Mike Saucedo MD | PCP | | + +------+ + Reason for Visit + + + | Reason | Comments | + + + | Referral | | + + + Encounter Details +--------+ + + + + | Date | Type | Department | Care Team | Description | +--------+ + + + + | 07/17/ | Telephone | [facility] | Isaura Rockwell, | Referral | | 2017 | | [facility] [address] | [address] | | | | | [place] | | | | | | [address] | | | | | | [phone] | | | +--------+ + + + [...] [place] | | | | | | [address] | | | | | | | | +--------+---------+ + + + | 11/04/ | Office | Pulmonology | Sukhjinder, | | | 2019 | Visit | | Windy Aldrich, | | | | | | MD [address] | | | | | | [place] | | | | | | [place] [address] | | | | | | [phone] | | | | | | | | +--------+---------+ + + + documented as of this encounter Visit Diagnoses Not on filedocumented in this encounter"
--- OUTSIDE RECORDS SUMMARY | ~2019-06-13 | XMS | Encounter Summary ---
Demographics + + + | Address | [address] | | | [place] [address] | + + + | Home Phone | | + + + | Preferred Language | Unknown | + + + | Marital Status | | + + + | Sikh Affiliation | 1041 | + + + | Race | Unknown | + + + | Ethnic Group | Unknown | + + + Author + + + | Author | [facility] | | | and [place] | + + + | Organization | [facility] | | | [...] Team Providers + +------+ + | Care Core Laying Machine Operator Name | Role | Phone | + +------+ + | Mike Saucedo MD | PCP | | + +------+ + Encounter Details +--------+ + + + + | Date | Type | Department | Care Team | Description | +--------+ + + + + | 07/12/ | Hospital | [facility] GENER[facility] IP | Conversion | Pain | | 2018 | Encounter | CONVERSION [address] | Transaction, | | | | | [address] | Provider Unknown | | | | | [facility] [place] | [phone] | | | | | [address] | | | | | | [phone] | | | +--------+ + + + [...] tablets by | 120 | 0 | 07/17/20 | | | (TYLENOL) 325 mg | [...] + + +---------+ + + | aspirin 325 mg | Take 1 tablet by | 30 | 0 | 07/17/20 | | | tablet | mouth Daily. | tablet | | 18 | 9 | + + + +---------+ + + [...] + +---------+ + + | metoprolol | Take 1 tablet by | 60 | 0 | 07/17/20 | | | tartrate (LOPRESSOR) | mouth 2 times daily. | tablet | | 18 | 9 | | 50 mg tablet | | | | | | + + + +---------+ + + | metoprolol | Take 1 tablet by | 60 | 0 | 07/17/20 | | | tartrate (LOPRESSOR) | mouth 2 times daily. | tablet | | 18 | 8 | | 50 mg tablet | | | | | | + + + +---------+ + + | omeprazole | Take 20 mg by mouth | | 0 | | | | (PRILOSEC) 20 mg | every morning | | | | 8 | | capsule | (before breakfast). | | | | | + + + +---------+ + + | polyethylene | Take 1 diluted | | 0 | 07/17/20 | | | glycol (MIRALAX) | packet by mouth | | | 18 | 9 | | packet | Daily as needed for | | | | | | | Constipation. | | | | | + + + +---------+ + + | SPIRIVA HANDIHALER | INHALE CONTENT OF | 30 | 5 | 06/20/20 | | | 18 MCG inhalation | ONE CAPSULE BY MOUTH | capsule | | 15 | 8 | | capsule | ONCE DAILY | | | | | + + + +---------+ + + | traMADol (ULTRAM) | Take 1-2 tablets by | 30 | 0 | 07/17/20 | | | 50 mg tablet | mouth every 6 hours | tablet | | 18 | 9 | | | as needed for Pain | | | | | | | (not relieved by | | | | | | | acetaminophen). | | | | | + + [...] | | | | | [place] | | | | | | [address] | | | | | | | | +--------+---------+ + + + | 11/04/ | Office | Pulmonology | Sukhjinder, | | | 2020 | Visit | | Windy Aldrich, | | | | | | [address] | | | | | | [place], | | | | | | [place] [address] | | | | | | [phone] | | | | | | | | +--------+---------+ + + + documented as of this encounter Procedures + +--------+ + + + | Procedure Name | Priori | Date/Time | Associated Diagnosis | Comments | | | ty | | | | + +--------+ + + + | XR HIP RIGHT 2-3 | Routin | 07/12/2018 | | Results for this | | VIEWS | e | 7:32 PM | | procedure are in the | | | | PST | | results section. | + +--------+ + + + documented in this encounter Results XR Hip Right 2-3 Views (07/12/2018 7:32 PM PST) + + | Specimen | + + | | + + + + + | Narrative | Performed At | + + + | This is a non-reportable procedure without a radiologist report and | | | is used for image storage only | | + + + + + | Procedure Note | + + | Mookie Garcia Juan - 03/04/2019 4:46 AM PDT This is a non-reportable procedure | | without a radiologist report and isused for image storage only | + + documented in this encounter Visit Diagnoses + + | Diagnosis | + + | Pain Generalized pain | + + documented in this encounter"
--- OUTSIDE RECORDS SUMMARY | ~2019-06-13 | XMS | Encounter Summary ---
Demographics + + + | Address | [address] | | | [place] [address] | + + + | Home Phone | | + + + | Preferred Language | Unknown | + + + | Marital Status | | + + + | Buddhism Affiliation | 1041 | + + + | Race | Unknown | + + + | Ethnic Group | Unknown | + + + Author + + + | Author | [facility] | | | and [place] | + + + | Organization | [facility] | | [...] Team Providers + +------+ + | Care Accounts Receivable Administrator Name | Role | Phone | + +------+ + | Mike Saucedo MD | PCP | | + +------+ + Reason for Referral Diagnostic/Screening (Routine) + +--------+ + + + + | Status | Reason | Specialty | Diagnoses / | Referred By | Referred To | | | | | Procedures | Contact | Contact | + +--------+ + + + + | Authorizatio | | Radiology | Diagnoses | Sukhjinder, | [facility] [address] | | n not | | | Multiple | Windy | DEMARCO RUVALCABA | | Required | | | pulmonary | MD Elinor | [place], [place] | | | | | nodules | [address] | [address] | | | | | Procedures | [address] | Phone: | | | | | CT Chest wo | [address] | [phone] | | | | | Contrast | [place], [place] | Fax: | | | | | | [address] | [phone] | | | | | | Phone: | | | | | | | [phone] | | | | | | | Fax: | | | | | | | [phone] | | + +--------+ + + + + Encounter Details +--------+---------+ + + + | Date | Type | Department | Care Team | Description | +--------+---------+ + + + | 05/19/ | Office | [facility] | Sukhjinder, | Bronchiectasis | | 2019 | Visit | PULMONOLOGY [address] | Windy Aldrich, | without complication | | | | [address] | [address] | ([facility]) (Primary Dx); | | | | [place], [place] | [address] [place], | Mild airflow | | | | [address] | [place] [address] | obstruction on | | | | [phone] | [phone] | pulmonary function | | | | | | test; Multiple | | | | | | pulmonary nodules; | | | | | | ILD (interstitial | | | | | | lung disease) ([facility]); | | | | | | Atypical | | | | | | mycobacterial | | | | | | infection of lung | | | | | | ([facility]); Personal | | | | | | [...] + + + | Blood Pressure | 119/49 | 05/19/2019 11:36 AM | | | | | PDT | | + + + + + | Pulse | 50 | 05/19/2019 11:36 AM | | | | | PDT | | + + + + + | Temperature | 36 C (96.8 F) | 05/19/2019 11:36 AM | | | | | PDT | | + + + + + | Respiratory Rate | - | - | | + + + + + | Oxygen Saturation | 99% | 05/19/2019 11:36 AM | | | | | PDT | | + + + + + | Inhaled Oxygen | - | - | | | Concentration | | | | + + + + + | Weight | 61 kg (134 lb 6.4 | 05/19/2019 11:36 AM | | | | oz) | PDT | | + + + + + | Height | 165.1 cm (5' 5") | 05/19/2019 11:36 AM | | | | | PDT | | + + + + + | Body Mass Index | 22.37 | 05/19/2019 11:36 AM | | | | | PDT [...] + + documented as of this encounter Patient Instructions Patient Instructions Windy Slaughter MD - 05/19/2019 11:30 AM PDTSTART FOLLOWI NG EXERCISES ON SIT AND BE FIT ON PBS AT 11 AM. documented in this encounter Progress Notes Windy Slaughter MD - 05/19/2019 11:30 AM PDTFormatting of this note might be d ifferent from the original. Subjective Patient ID: Shireen Posey is a 79 y.o. female with known valvular heart disease due to childhood rheumatic fever, COPD, bronchiectasis, stable pulmonary nodule, gastropares is and history of hiatal hernia, and underlying [...] will be seeing a new provider in [place] soon. She denies jonathan st pains, but [...] nasal gtt and sinus drainage. Interval History Narrative/Comments: She reports that she has done well, but has not been very compliant wi th pulmonary hygiene because of recent travels. She has obtained her flu shot. She reports t hat her dyspnea and cough have not changed significantly. The patient reports the following: DYSPNEA: On moderate exertion. Can do all chores at home without difficulty or dyspnea. Get s winded only with climbing an incline. COUGH: Chronic, daily with clear to yellow sputum. Denies hemoptysis. Sputum production h as gone down. ACUTE EXACERBATION: None EXPOSURES: Former smoker EXERCISE: No formal exercise but is active at home. Has had some leg pains which have prev ented her from walking more. ACTIVITIES OF DAILY LIVING: Independent and without difficulty. CONSTITUTIONAL SYMPTOMS: Denies fevers, chills or night sweats. Has had some weight loss, a nd is gaining back some of the weight. SINO-NASAL SYMPTOMS: Denies allergy s/s. REFLUX or REGURGITATION: Has had reflux and gastroparesis. This has been well controlled these days. SLEEP: Has been sleeping well. Sleeps on a recliner to help with her aches and pains. CHEST PAINS: None ORTHOPNEA OR PND (Paroxysmal Nocturnal Dyspnea): None PEDAL EDEMA: Chronic, more often later in the day. L more than the R OTHER SYMPTOMS: Arthralgias Inhaler regimen includes: Albuterol nebulization BID, Incruse Ellipta daily. Also has valentino pella valve for mucus clearance but has not used her acapella device or nebulized albuterol regularly. Oxygen Use: None PAP therapy: None Other relevant medications: None SOCIAL HISTORY She is a past smoker, stopped 10 years ago, smoked about 1/2 to a pack a day for the past 5 0 years. 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 She denies occupational exposures. She has no animals at home curre ntly. The following elements of the patient's history were reviewed and updated as appropriate. T hey are available elsewhere in the patient record. allergies, current medications, past fam zayda history, past medical history, past social history, past surgical history and problem li st Review of Systems Constitutional: Positive for fatigue. Negative for fever and unexpected weight change. HENT: Positive for congestion. Negative for sore throat, trouble swallowing and voice nguyen e. Respiratory: Positive for cough and shortness of breath. Negative for apnea, choking, wheez ing and stridor. Cardiovascular: Positive for leg swelling. Negative for chest pain and palpitations. Gastrointestinal: Negative for abdominal pain, constipation, diarrhea, nausea and vomiting. Genitourinary: Negative for difficulty urinating. Musculoskeletal: Positive for arthralgias and gait problem. Negative for back pain, joint s welling, myalgias and neck pain. Skin: Negative for rash. Neurological: Negative for dizziness. Psychiatric/Behavioral: Negative for sleep disturbance. All other systems reviewed and are negative. Past Medical History: Diagnosis Date Abnormal chest x-ray right and left consolidations or effusions Acute lateral meniscus tear of right knee 2007 Aortic regurgitation moderate on echo 12/05 Atrial fibrillation (HCC) 07/08 post hip surgery - episodes on monitor 10/07 - AC Atrial flutter (HCC) 2011 post operatively, treated with medication Basal cell carcinoma of right cheek Bilateral claudication of lower limb (HCC) Bronchiectasis (HCC) Bronchiectasis (HCC) CAD (coronary artery disease) Carotid artery disease (HCC) carotid US 2010 50-69% mid L ICA stenosis Carotid stenosis left 50-69% ICA stenosis on US 2009 Chronic sinusitis Chronic sinusitis COPD (chronic obstructive pulmonary disease) (HCC) 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 Gastroparesis 05/2012 Gastroparesis GERD (gastroesophageal reflux disease) s/p fundoplication Hiatal hernia repaired surgically History of breast cancer Intra-abdominal hernia Osteopenia 2007 Osteopenia Pityriasis rosea Placenta previa Polyp of colon Pulmonary fibrosis (HCC) Pulmonary nodule Rheumatic aortic insufficiency Rheumatic heart disease 1948 With murmur Rheumatic heart disease Rosacea Ruptured appendix 1960 Scoliosis Past Surgical History: Procedure Laterality Date APPENDECTOMY 1960 ruptured while APPENDECTOMY BLADDER REPAIR 2011 Coapitite Procedure BREAST LUMPECTOMY Right 1998 BREAST LUMPECTOMY Right lumpectomy-right breast BRONCHOSCOPY 1992 CHOLECYSTECTOMY COLONOSCOPY 2013 COLONOSCOPY 2013 GALLBLADDER SURGERY 03/25/2018 GASTRIC FUNDOPLICATION 2011 with hiatal hernia repair HERNIA REPAIR HIP ARTHROPLASTY Right 07/13/2018 Procedure: HEMIARTHROPLASTY HIP; Surgeon: Abdi Wallace MD; Location: [facility] MAIN OR KNEE ARTHROSCOPY Right 2007 torn meniscus KNEE ARTHROSCOPY Right OTHER SURGICAL HISTORY Right BASAL CELL CARCINOMA EXCISION - cheek OTHER SURGICAL HISTORY UNLISTED PROCEDURE ARTHROSCOPY OTHER SURGICAL HISTORY 09/2018 26 days: NSR 48-117 (71), SB with sleep, a fib (0.85% - longest 3 hr - avg rate 128 bpm), occ PVC vs aberrancy during a fib, atrial runs, triggers with NSR and a fib POLYPECTOMY SKIN CANCER EXCISION Right 2012 cheek TONSILLECTOMY AND ADENOIDECTOMY 1948 TONSILLECTOMY AND ADENOIDECTOMY TONSILLECTOMY AND ADENOIDECTOMY TOTAL HIP ARTHROPLASTY TRANSTHORACIC ECHOCARDIOGRAM 11/2016 EF 65-70%, mild LA dil, mod AI, mild MR, mild-mod TR, RVSP 30 UPPER GASTROINTESTINAL ENDOSCOPY 2010 Venous Closure 2010 Objective BP 119/49 | Pulse 50 | Temp 36 C (96.8 F) (Oral) | Ht 1.651 m (5' 5") | Wt 61 kg (1 34 lb 6.4 oz) | SpO2 99% | BMI 22.37 kg/m Physical Exam Vital signs reviewed. Oxygen saturation noted at 99% on ambient air GENERAL: pleasant, cooperative, oriented, [...] nail abnormalities, +1 edema on ankles noted L more than the R NEURO: awake and oriented, gait normal, no focal neurologic deficits LABORATORY AND IMAGING Pulmonary Function Test: 04/26/14 10/25/15 11/07/17 FEV1 1.81 (85%) 1.79 (85%) 1.97 (97%) FVC 2.69 (94%) 2.61 (92%) 2.88 (106%) FEV1/FVC 67 69 68 TLC 12.11 (236%) 7.74 (151%) 4.74 (93%) RV/TLC 77 66 38 DLCO 16.6 (73%) 15.2 (67%) 71% CT imaging done on 10/24/16 independently reviewed. [...] systolic function NML, Grade 1 diastolic abnormality, [place] visually estimates LVEF 65-70%. Moderate LAE. RA/RV [...] base. AFB February [address] of the chest on May 2018 reviewed. 2 mm RUL nodule, 5 mm nodule, with adjacent scarring. 2 mm ALEXANDRA nodule -stable. AFB 07/19/18 -No growth. Sputum CS 05/20/19 -Wynn sensitive Pseudomonas. Assessment /Plan 1. Bronchiectasis without complication (HCC) Ms Posey is a 78 yr old woman who has bibasilar bronchiectasis, likely from her previou s episodes of aspiration as a consequence of hiatal hernia and gastric dysmotility. Surveill ance sputum culture, and AFB smear and culture showed evidence of pseudomonas aeruginosa (lucero holbrook a colonizer), and atypical mycobacteria (only once in our surveillance CS). Repeat AFB CS in February 2018 did not show evidence of DOMI. I have encouraged her today to go back to pulmonary hygiene regimen -albuterol neb BID, and acapella device. She has been maintained on Incruse Ellipta daily. Exercise has been encouraged today as this help with mucus clearance as well. We will have her submit sputum CS for bacterial and AFB CS as part of surveillance. - Culture, AFB Smear; Future - Culture, Respiratory, Lower, Smear; Future 2. Mild airflow obstruction on pulmonary function test She manifests with mild airflow obstruction most likely secondary to her underlying bronchi ectasis and centrilobular emphysema. She will continue with Incruse Ellipta once a day. 3. Multiple pulmonary nodules She has small multiple pulm nodules that need to be followed given risk for pulmonary malig sasha (was a smoker). Repeat CT this May 2018 have been stable, and this is reassuring. Wi ll request for a repeat CT of the chest this May as part of continuing surveillance. If this is stable, no need for repeat CT imaging unless with symptoms. - CT Chest wo Contrast; Future 4. ILD (interstitial lung disease) (HCC) She has subtle interstitial changes on the bases of her lungs, which I think is from past a spiration episodes. She thought that she had IPF, which her sister had, but based on her his tory, this is less likely. Repeat imaging this May 2018 showed stable infiltrates on the bas es. 5. Atypical mycobacterial infection of lung (HCC) Has not had any repeat isolation of DOMI. This is reassuring. Continue to be vigilant about signs of chronic infection. Repeat sputum surveillance as above. 6. Personal history of tobacco use, presenting hazards to health She has stopped smoking about 10 years ago. Continue to be vigilant about signs of pulmonar y malignancy. Repeat CT as above. She no longer qualifies for CT lung screening due to her a ge. Thank you for allowing us to participate in this patient's care. A return visit has been re quested/scheduled in 5-6 months for routine follow up. The patient was instructed to call o clinic for any questions, and for any concerns regarding worsening dyspnea, cough or faith ge in sputum production. We will see the patient sooner than the recommended follow up date, if with any worsening of symptoms. Windy Slaughter MD Pulmonary and Critical Care Medicine [facility] [address] [place] [address] documentdamon poole in this encounter Plan of Treatment +--------+---------+ + + + | Date | Type | Specialty | Care Team | Description | +--------+---------+ + + + | 07/08/ | Office | Cardiology | Nannette Morrison, | | | 2018 | Visit | | MD Angela [address] | | | | | | [place] | | | | | | [phone] | | | | | | | | +--------+---------+ + + + | 11/04/ | Office | Pulmonology | Sukhjinder, | | | 2019 | Visit | | Windy Aldrich | | | | | | MD [address] | | | | | | [place] | | | | | | [place] [address] | | | | | | [phone] | | | | | | | | +--------+---------+ + + + + + +--------+ + + | Name | Type | Priori | Associated Diagnoses | Order Schedule | | | | ty | | | + + +--------+ + + | Culture, AFB Smear | Microbiolog | Routin | Bronchiectasis | Expected: | | | y | e | without complication | 05/19/2019, Expires: | | | | | (HCC) | 05/19/2020 | + + +--------+ + + | Culture, | Microbiolog | Routin | Bronchiectasis | Expected: | | Respiratory, Lower, | y | e | without complication | 05/19/2019, Expires: | | Smear | | | (HCC) | 05/19/2020 | + + +--------+ + + | CT Chest wo Contrast | Imaging | Routin | Multiple pulmonary | Expected: | | | | e | nodules | 05/19/2019, Expires: | | | | | | 05/19/2020 | + + +--------+ + + documented as of this encounter Visit Diagnoses + + | Diagnosis | + + | Bronchiectasis without complication (HCC) - Primary Bronchiectasis without acute | | exacerbation | + + | Mild airflow obstruction on pulmonary function test | + + | Multiple pulmonary nodules Other nonspecific abnormal finding of lung field | + + | ILD (interstitial lung disease) (HCC) Postinflammatory pulmonary fibrosis | + + | Atypical mycobacterial infection of lung (HCC) Pulmonary diseases due to other | | mycobacteria | + + | Personal history of tobacco use, presenting hazards to health | + + documented in this encounter
--- OUTSIDE RECORDS SUMMARY | ~2019-06-13 | XMS | Encounter Summary ---
Demographics + + + | Address | [address] | | | [place] [address] | + + + | Home Phone | | + + + | Preferred Language | Unknown | + + + | Marital Status | | + + + | Temple Affiliation | CAT | + + + | Race | White | + + + | Ethnic Group | Not or | + + + Author + + + | Author | [facility] | + + + | Organization | [facility] | + + + | Address | Unknown | + + + | Phone | Unavailable | + + + Support + + + + + | Name | Relationship | Address | Phone | + + + + + | Jer Posey | ECON | [address] | | | | [place], [place] | | | | | [address] | | + + + + + Care Team Providers + +------+ + | Care Ham Clerk Name | Role | Phone | + +------+ + | Mike Saucedo MD | PCP | | + +------+ + Encounter Details +--------+ + + + + | Date | Type | Department | Care Team | Description | +--------+ + + + + | 05/18/ | Telephone | Dig[facility]ive [facility] | Doug March, | | | 2010 | | [place] [facility] [address] | [address] | | | | | [address] | [facility] | | | | | Mailcode: Center | [place], [place] | | | | | [facility] and | [address] | | | | | [facility] [address] | [phone] | | | | | [place], [place] | | | | | | [address] | | | | | | [phone] | | | +--------+ + + + [...]
--- OUTSIDE RECORDS SUMMARY | ~2019-06-13 | XMS | Encounter Summary ---
Demographics + + + | Address | [address] | | | [place] [address] | + + + | Home Phone [...] Team Providers + +------+ + | Care Crew Boss Name | Role | Phone | + +------+ + | Mike Saucedo MD | PCP | | + +------+ + Reason for Visit +--------+ + | Reason | Comments | +--------+ + | Cough | f/u had cat scan 11/10/14 | +--------+ + Encounter Details +--------+---------+ + + + | Date | Type | Department | Care Team | Description | +--------+---------+ + + + | 11/10/ | Office | [facility] | Offenstein, | Obstructive chronic | | 2014 | Visit | PULMONARY [address] | Jenna George MD | bronchitis (HCC) | | | | [place], | | (Primary Dx); | | | | [place] [address] | | Bronchiectasis | | | | [phone] | | ([facility]); | | | | | | Gastroesophageal | | | | | | reflux disease with | | | | | | esophagitis; History | | | | | | of breast cancer | +--------+---------+ + + + Social [...] + + + | Blood Pressure | 114/62 | 11/10/2014 11:12 AM | | | | | PDT | | + + + + + | Pulse | 70 | 11/10/2014 11:12 AM | | | | | PDT | | + + + + + | Temperature | - | - | | + + + + + | Respiratory Rate | 14 | 11/10/2014 11:12 AM | | | | | PDT | | + + + + + | Oxygen Saturation | 99% | 11/10/2014 11:12 AM | room air | | | | PDT | | + + + + + | Inhaled Oxygen | - | - | | | Concentration | | | | + + + + + | Weight | 64.2 kg (141 lb 8 | 11/10/2014 11:12 AM | | | | oz) | PDT | | + + + + + | Height | 165.1 cm (5' 5") | 11/10/2014 11:12 AM | | | | | PDT | | + + + + + | Body Mass Index | 23.55 | 11/10/2014 11:12 AM | | | | | PDT | | + + + + + documented in this encounter Patient Instructions Patient Instructions Jenna Maria MD - 11/10/2014 12:49 PM PDTSet the Acapella to the highest pressure that you can consistently make it flutter at. Use it for 10 breaths tw ice daily at this pressure. Angle your entire bed if possible 5 inches off the ground at the head of the bed. Try to eat 4 hours before bedtime and no closer than that. Try to eat your largest meal at breakfast or lunch and not dinner. I would try starting ranitidine 150 mg at bedtime and see if this helps the cough as well. documented in this encounter Progress Notes Jenna Maria MD - 11/10/2014 11:17 AM PDTFormatting of this note might be differe nt from the original. Pulmonary Follow Up HPI Shireen Posey is a 74 y.o. female patient of Mike Saucedo here today fo r follow up of cough and bronchiectasis. At their last visit, we had ordered a follow up chest CT, switched her from Advair to Spiri va, and ordered her an Acapella. She did not feel like switching from Advair to Spiriva affe cted her cough at all. She has not had any acute illnesses. She notes that in the last few weeks, she feels like her cough is looser. Prior to that, christina jose does not feel like her cough has changed much. Currently she is bringing up mucous, which is sometimes white, and sometimes it is yellow. She has not had any hemoptysis. She feels li ke when she drinks milk or when she bends over she coughs more often. She attempted to use the Acapella, but it said to set the pressure on it, and so she has no t used it. She notes that she gets out of energy easily, like she cannot do anything. She notes that t his occurs mainly shortly after she gets up after she has showered. She then has to rest aft erwards. She is not having shortness of breath. Currently she is able to walk 1 mile at her own pace on level ground. She is not exercising regularly. 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 She does not have symptoms of heartburn or reflux. She had a prior fundoplication, and has not had any since that time. She is not on any medication for reflux. She does adhere to a d iet for this. She avoids caffeine and alcohol and eats dinner 3 hours before bedtime. She does not typically snore at night. She sleeps 8-9 hours at night, and wakes typically 3 times at night. When she first wakes up in the morning she does not feel tired. She does fe el like she sleeps well at night. In the last 6 months, she can fall asleep in her chair and take a 10 minute power nap and then she is back up. She does this twice a week. She does no t have any issues with insomnia. She does not have any symptoms of restless legs, and her hu mercedes does not notice her moving her legs around a lot at night. 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 Rheumatic heart disease 8 With murmur Rosacea Abnormal chest x-ray right and left consolidations or effusions GERD (gastroesophageal reflux disease) s/p fundoplication Atrial flutter (HCC) 2011 post operatively, treated with medication Gastroparesis 05/2012 Scoliosis Hiatal hernia repaired surgically Chronic sinusitis Carotid artery disease (HCC) carotid US 2010 50-69% mid L ICA stenosis Osteopenia 2007 Acute lateral meniscus tear of right knee 2007 Ruptured appendix 1960 Placenta previa Past Surgical History Past Surgical History Procedure Laterality Date Tonsillectomy and adenoidectomy 1948 Appendectomy 1960 Breast lumpectomy 1997 Right Knee arthroscopy 2007 Right Bronchoscopy 1992 Venous closure 2010 Gastric fundoplication 2011 with hiatal hernia repair Skin cancer excision 2012 Colonoscopy 2014 Bladder repair 2011 Coapitite Procedure Social History: History Social History Marital Status: Spouse Name: N/A Number of Children: N/A Years of Education: N/A Occupational History Medical Records Check [employer] Insurance Social History Main Topics Smoking status: Former Smoker -- 0.70 packs/day for 40 years Types: Cigarettes Quit date: 05/06/2009 Smokeless tobacco: None Alcohol Use: No Drug Use: No Sexual Activity: None Other Topics Concern None Social History Narrative Lives: in [place] With: her Grew up: [place] previously lived in: [place] Exposure to toxic chemicals: DDT on crops and in well water, near to [facility] Exposure to asbestos: no Exposure to tuberculosis: no Has had a PPD or Quantiferon before: yes, negative Has pets at home: no Has ever owned birds: as a child, a pigeon Other animal exposures: not now Hobbies: scrapbooking, yardwork, gardening, baking, reading Allergies: No Known Allergies Medications: Outpatient Encounter Prescriptions as of 11/10/2014 Medication Sig Dispense Refill Calcium Carb-Cholecalciferol (CALCIUM 1000 + D PO) Take by mouth Daily. cholecalciferol (VITAMIN D-3) 2000 UNITS TABS Take 2,000 Units by mouth Daily. flunisolide (NASALIDE) 25 MCG/ACT (0.025%) SOLN 2 sprays by Nasal route Daily. 1 Bottl e 11 Misc. Devices (ACAPELLA) [facility] Dx: 494.0 NIGEL: 99 months Use as directed twice daily. 1 each 1 tiotropium (SPIRIVA HANDIHALER) 18 mcg inhalation capsule Inhale 1 capsule into the aaron gs Daily. 30 capsule 11 No facility-administered encounter medications on file as of 11/10/2014. Review of Systems: General: []Weight loss/gain (over 10 lbs) []Fever/chills/sweats []Night sweats EENT: [x]Hearing loss []Vision loss/change [x]Sinus congestion/nasal drainage- on nasal spra y, not sure if it helps much [x]Nosebleeds- occasional [x]Hoarseness Cardiac: []Chest pain []Palpitations/heart racing [x]Swelling of legs/ankles- if she eats salt []W aking up at night short of breath Gastrointestinal: []Nausea/vomiting []Difficulty swallowing []Heartburn/acid reflux []Loss of appetite []Abdo iris pain Urologic: []Blood in urine []Frequent urination at night []Burning/painful urination []Difficulty wit h urination Objective BP 114/62 | Pulse 70 | Resp 14 | Ht 1.651 m (5' 5") | Wt 64.184 kg (141 lb 8 oz) | BMI 23.55 kg/m2 | SpO2 99% | ? No RA General Appearance: Alert, cooperative, no distress, appears stated age Head: Normocephalic, without obvious abnormality, atraumatic Eyes: PERRL, conjunctiva clear, no scleral icterus, EOM's intact Ears: Normal TM's, external auditory canals, normal acuity Nose: Nares normal, septum midline, mucosa normal Mouth: No oral lesions or exudate Neck: Supple, symmetrical, no adenopathy Lungs: No accessory muscle use, breath sounds are diminished bilaterally with some scatte red rhonchi, no wheezes, crackles or rhonchi Chest Wall: No deformity Heart: Regular rate and rhythm, systolic murmur, no rub or gallop Abdomen: Soft, non-tender, non-distended Extremities: No cyanosis, clubbing, trace bilateral ankle edema Pulses: Radial pulses 2+ and symmetric Skin: Warm and dry Lymph nodes: Cervical and supraclavicular nodes normal Data: Mammogram was performed on May and results were reviewed in clinic today. It s hows stable post radiation changes on the right. Immunization History Administered Date(s) Administered INFLUENZA, TRIVALENT PRESERVATIVE FREE (PED/ADOL/ADULT) 04/06/2014 PNEUMOCOCCAL POLYSACCHARIDE 23-VALENT (PPSV23) 07/22/1992, 07/22/2010 TETANUS TOXOID ABSORBED, (ADOL/ADULT) 07/22/1995 ZOSTER, 1 DOSE (ADULT) 07/22/2010 Assessment 1. Obstructive chronic bronchitis (HCC) - On Spiriva. She has tried both Advair and Spiriva and did not feel she got much symptomatic relief from either. For now, we will continue the Spiriva. 2. Bronchiectasis (HCC) - Significant coughing persists. This is thought secondary to her p revious marked reflux. Her sister also has marked lung disease (also likely from reflux). We will check auto immune serology to ensure this is not playing a role. I did review how to s et the pressure on the Acapella. I would like her to see if this reduces coughing and mucous production. 3. Gastroesophageal reflux disease with esophagitis - Ct scan shows dilated esophagus with food debris within. This certainly sets her up for recurrent aspiration. We discussed avoida nce of eating 4 hours before bed, eating her largest meal at breakfast or lunch, and angling her entire bed to keep gastric and esophageal contents from spilling over. I will also resu me a H2 hellen. 4. History of breast cancer - Recent digital mammography was stable. Digital mammography wa s recommended for her further follow up studies. Plan 1.Start Acapella twice daily. 2.Angle her bed 5 inches ff of the ground. 3.Eat no more than 4 hours before bedtime. 4. Eat largest meal at breakfast or lunch. 5. Start ranitidine 150mg at bedtime. 6. Check auto immune serologies. She was advised to call if new pulmonary symptoms were to develop. Return to clinic in 4 months, or sooner with concerns. CC: Mike Saucedo Portions of this report were transcribed using voice recognition software. Every effort wa s made to ensure accuracy; however, inadvertent computerized gas pumper errors may be pre sent. documented in [...] [place] | | | | | | [id number] | | | | | | | | +--------+---------+ + + + | 11/04/ | Office | Pulmonology | Sukhjinder, | | | 2019 | Visit | | Windy Aldrich | | | | | | MD [address] | | | | | | [place] | | | | | | [place] [address] | | | | | | [phone] | | | | | | | | +--------+---------+ + + + documented as of this encounter Procedures + +--------+ + + + | Procedure Name | Priori | Date/Time | Associated Diagnosis | Comments | | | ty | | | | + +--------+ + + + | ANGEL SPECIFIC | Routin | 11/10/2014 | Bronchiectasis | Results for this | | ANTIBODY PANEL | e | 1:17 PM | (HCC) | procedure are in the | | | | PDT | | results section. | + +--------+ + + + | CYCLIC CITRULLINATED | Routin | 11/10/2014 | Bronchiectasis | Results for this | | PEPTIDE AB, IGG | e | 1:17 PM | (HCC) | procedure are in the | | | | PDT | | results section. | + +--------+ + + + | ALDOLASE | Routin | 11/10/2014 | Bronchiectasis | Results for this | | | e | 1:17 PM | (HCC) | procedure are in the | | | | PDT | | results section. | + +--------+ + + + | CK TOTAL | Routin | 11/10/2014 | Bronchiectasis | Results for this | | | e | 1:16 PM | (HCC) | procedure are in the | | | | PDT | | results section. | + +--------+ + + + documented in this encounter Results ANGEL Specific Antibody Panel (11/10/2014 1:17 PM PDT) + + + + + + | Component | Value | Ref Range | Performed | Pathologist | | | | | At | Signature | + + + + + + | dsDNA | 1Comment: Negative: | <5 IU/mL | REFERENCE | | | Autoantibod | Equal to or <4 | | [facility] | | | y | | | | | + + + + + + | SM | <0.2Comment: Negative | <1.0 AI | REFERENCE | | | Autoantibod | | | [facility] | | | y | | | | | + + + + + + | Ribosomal P | <0.2Comment: Negative | <1.0 AI | REFERENCE | | | | | | [facility] | | | Autoantibod | | | | | | y | | | | | + + + + + + | Chromatin | 0.2Comment: Negative | <1.0 AI | REFERENCE | | | Autoantibod | | | [facility] | | | y | | | | | + + + + + + | BEAD TRIMMER | <0.2Comment: Negative | <1.0 AI | REFERENCE | | | Autoantibod | | | [facility] | | | y | | | | | + + + + + + | SMRNP | <0.2Comment: Negative | <1.0 AI | REFERENCE | | | Autoantibod | | | [facility] | | | y | | | | | + + + + + + | Scleroderma | <0.2Comment: Negative | <1.0 AI | REFERENCE | | | SCL-70 | | | [facility] | | + + + + + + | Centromere | <0.2Comment: Negative | <1.0 AI | REFERENCE | | | B | | | [facility] | | | Autoantibod | | | | | | y | | | | | + + + + + + | SS-A | <0.2Comment: Negative | <1.0 AI | REFERENCE | | | Autoantibod | | | [facility] | | | y | | | | | + + + + + + | SS-B | <0.2Comment: Negative | <1.0 AI | REFERENCE | | | Autoantibod | | | [facility] | | | y | | | | | + + + + + + | SORAYA-1 | <0.2Comment: | <1.0 AI | REFERENCE | | | ANTIBODY | NegativeTesting | | [facility] | | | IGG | Performed: [facility], [address] | | | | | [address], [place] | | | | | | [address] | | | | + + + + + + + + | Specimen | + + | Blood specimen | | (specimen) | + + + + + + + | Performing | Address | City/State/Zipcode | Phone Number | | Organization | | | | + + + + + | [facility] | [address] | [place] [address] | [phone] | + + + + + Cyclic Citrullinated Peptide Ab, IgG (11/10/2014 1:17 PM PDT) + + + + + + | Component | Value | Ref Range | Performed | Pathologist | | | | | At | Signature | + + + + + + | Cyclic | <16Comment: Negative | <20 Units | REFERENCE | | | Citrullin | < 20Weak | | [facility] | | | Peptide Ab | Positive 20 to | | | | | | 39Moderate Positive | | | | | | 40 to 59Strong Positive | | | | | | 60 or | | | | | | greaterApproximately 70% | | | | | | of patients with RA are | | | | | | positive for CCP IgG, | | | | | | whileonly 2% of random | | | | | | blood donors and disease | | | | | | controls are | | | | | | positive.The diagnostic | | | | | | value of antibodies to | | | | | | CCP in juvenile | | | | | | rheumatoidarthritis | | | | | | patients has not been | | | | | | determined.Note: Updated | | | | | | methodology measures | | | | | | IgG antibody to the CCP3 | | | | | | peptide.Results from | | | | | | this assay in the strong | | | | | | positive range (> 60 U) | | | | | | may behigher than with | | | | | | the previous assay, | | | | | | which measured IgG | | | | | | antibody toCCP2 peptide. | | | | | | New method shows | | | | | | improved sensitivity in | | | | | | RA patients.Testing | | | | | | Performed: [facility], [address] | | | | | | [address], [place] | | | | | | [address] | | | | + + + + + + + + | Specimen | + + | Blood specimen | | (specimen) | + + + + + + + | Performing | Address | City/State/Zipcode | Phone Number | | Organization | | | | + + + + + | [facility] | [address] | [place] [address] | [phone] | + + + + + Aldolase (11/10/2014 1:17 PM PDT) + + + + + + | Component | Value | Ref Range | Performed | Pathologist | | | | | At | Signature | + + + + + + | Aldolase | 1.5Comment: Testing | 1.2 - 7.6 U/L | REFERENCE | | | | Performed: [facility], [address] | | [facility] | | | | [address], [place] | | | | | | [address] | | | | + + + + + + + + | Specimen | + + | Blood specimen | | (specimen) | + + + + + + + | Performing | Address | City/State/Zipcode | Phone Number | | Organization | | | | + + + + + | [facility] | [address] | [place] [address] | [phone] | + + + + + CK Total (11/10/2014 1:16 PM PDT) + +-------+ + + + | Component | Value | Ref Range | Performed | Pathologist | | | | | At | Signature | + +-------+ + + + | CK TOTAL | 60 | 22 - 269 U/L | [facility] | [facility] - | | | | | | [facility]ATORY | | + +-------+ + + + + + | Specimen | + + | Blood | + + + + + + + | Performing | Address | City/State/Zipcode | Phone Number | | Organization | | | | + + + + + | [facility] | [address] | [place] | [phone] | | [facility] | | [address] | | | - LABORATORY | | | | + + + + + documented in this encounter Visit Diagnoses + + | Diagnosis | + + | Obstructive chronic bronchitis (HCC) - Primary Obstructive chronic bronchitis without | | exacerbation | + + | Bronchiectasis (HCC) Bronchiectasis without acute exacerbation | + + | Gastroesophageal reflux disease with esophagitis | + + | History of breast cancer Personal history of malignant neoplasm of breast | + + documented in this encounter
--- OUTSIDE RECORDS SUMMARY | ~2019-06-13 | XMS | Encounter Summary ---
Demographics + + + | Address | [address] | | | [place] [address] | + + + | Home Phone | | + + + | Preferred Language | Unknown | + + + | Marital Status | | + + + | Church Affiliation | 1041 | + + + | Race | Unknown | + + + | Ethnic Group | Unknown | + + + Author + + + | Author | [facility] | | | and [place] | + + + | Organization | [facility] | | [...] Team Providers + +------+ + | Care Machinist Name | Role | Phone | + +------+ + | Mike Saucedo MD | PCP | | + +------+ + Reason for Visit +--------+ + | Reason | Comments | +--------+ + | Other | Faxed CT order to [facility] | +--------+ + Encounter Details +--------+ + + + + | Date | Type | Department | Care Team | Description | +--------+ + + + + | 05/28/ | Documentati | [facility] | Matt Saxena, | Other (Faxed CT | | 2019 | on | PULMONOLOGY [address] | Cloth Cutting Machine Operator | order to Sarika) | | | | [address] | | | | | | [place], [place] | | | | | | [address] | | | | | | [phone] | | | +--------+ + + + [...] + documented as of this encounter Progress Notes Matt Saxena, Cloth Cutting Machine Operator - 05/28/2019 4:[address] [facility] berriosonically signed by Matt Saxena, Cloth Cutting Machine Operator at 05/28/2019 4:33 PM PSTdocument ed in this encounter Plan of Treatment +--------+---------+ + + + | Date | Type | Specialty | Care Team | Description | +--------+---------+ + + + | 07/08/ | Office | Cardiology | Nannette Morrison, | | | 2018 | Visit | | MD [address] | | | | | | [place] | | | | | | [address] | | | | | | | | +--------+---------+ + + + | 11/04/ | Office | Pulmonology | Sukhjinder, | | | 2019 | Visit | | Windy Aldrich | | | | | | MD [address] | | | | | | [place] | | | | | | [place] [address] | | | | | | [phone] | | | | | | | | +--------+---------+ + + + documented as of this encounter Visit Diagnoses Not on filedocumented in this encounter"
--- OUTSIDE RECORDS SUMMARY | ~2019-06-13 | XMS | Encounter Summary ---
Demographics + + + | Address | [address] | | | [place] [address] | + + + | Home Phone | | + + + | Preferred Language | Unknown | + + + | Marital Status | | + + + | Baptist Affiliation | CAT | + + + | Race | White | + + + | Ethnic Group | Not or | + + + Author + + + | Author | [facility] | + + + | Organization | [facility] | + + + | Address | Unknown | + + + | Phone | Unavailable | + + + Support + + + + + | Name | Relationship | Address | Phone | + + + + + | Jer Posey | ECON | [address] | | | | [place], [place] | | | | | [address] | | + + + + + Care Team Providers + +------+ + | Care Application Tester Name | Role | Phone | + +------+ + | Mike Saucedo MD | PCP | | + +------+ + Reason for Visit AUTH/CERT (Routine) +--------+--------+ + + + + [...] | +--------+ + + + + | 10/23/ | Hospital | Cardiac | Sjh, Car Ecg Tech | | | 2011 | Encounter | Non-Invasive Testing | [address] | | | | | [facility] | [facility] | | | | | [address] [place] [address] | [place] [address] | | | | | [facility] | | | | | | Mailcode: [id number] [facility] | | | | | | [facility] | | | | | | [facility] | | | | | | [place] [address] | | | | | | [phone] | | | +--------+ + + + [...] Not on filedocumented as of this encounter Procedures + +--------+ + + + | Procedure Name | Priori | Date/Time | Associated Diagnosis | Comments | | | ty | | | | + +--------+ + + + | 12 LEAD ECG | Routin | 10/24/2011 | Other specified | Results for this | | | e | 2:46 PM | pre-operative | procedure are in the | | | | PDT | examination | results section. | + +--------+ + + + documented in this encounter Results 12 LEAD ECG (10/24/2011 2:46 PM PDT) + + + + + + | Component | Value | Ref Range | Performed | Pathologist | | | | | At | Signature | + + + + + + | VENTRICULAR | 61 | BPM | [facility] | | | RATE | | | OF | | | | | | CARDIOLOGY | | + + + + + + | ATRIAL RATE | 61 | BPM | [facility] | | | | | | OF | | | | | | CARDIOLOGY | | + + + + + + | P-R | 134 | ms | [facility] | | | INTERVAL | | | OF | | | | | | CARDIOLOGY | | + + + + + + | QRS | 84 | ms | [facility] | | | DURATION | | | OF | | | | | | CARDIOLOGY | | + + + + + + | QT | 430 | ms | [facility] | | | | | | OF | | | | | | CARDIOLOGY | | + + + + + + | QTC | 432 | ms | [facility] | | | | | | OF | | | | | | CARDIOLOGY | | + + + + + + | P AXIS | 28 | degrees | [facility] | | | | | | OF | | | | | | CARDIOLOGY | | + + + + + + | R AXIS | -9 | degrees | [facility] | | | | | | OF | | | | | | CARDIOLOGY | | + + + + + + | T AXIS | 38 | degrees | [facility] | | | | | | OF | | | | | | CARDIOLOGY | | + + + + + + | EKG | Normal sinus rhythmRSR' | | [facility] | | | DIAGNOSIS | or QR pattern in V1 | | OF | | | | suggests right | | CARDIOLOGY | | | | ventricular conduction | | | | | | delayBorderline ECG"I | | | | | | have personally | | | | | | interpreted this report, | | | | | | either alone or with a | | | | | | trainee."Confirmed by | | | | | | MISAEL ABREU ([id number]) | | | | | | on 10/25/2011 9:04:54 AM | | | | + + + + + + + + | Specimen | + + | | + + + + + | Narrative | Performed At | + + + | Please click | [facility] | | on view image for the detailed interpretation from [employer] results. | CARDIOLOGY | + + + + + + + + | Performing | Address | City/State/Zipcode | Phone Number | | Organization | | | | + + + + + | [facility] | [address] | [place], [place] | | | CARDIOLOGY | [facility] | [address] | | + + + + + documented in this encounter Visit Diagnoses Not on filedocumented in this encounter
--- OUTSIDE RECORDS SUMMARY | ~2019-06-13 | XMS | Encounter Summary ---
Demographics + + + | Address | [address] | | | [place] [address] | + + + | Home Phone | | + + + | Preferred Language | Unknown | + + + | Marital Status | | + + + | Gnosticism Affiliation | 1041 | + + + | Race | Unknown | + + + | Ethnic Group | Unknown | + + + Author + + + | Author | [facility] | | | and [place] | + + + | Organization | [facility] | | | and [place] | + + + | Address | Unknown | + + + | Phone | Unavailable | + + + Support + + +---------+ + | Name | Relationship | Address | Phone | + + +---------+ + | Sade Beckwith | ECON | Unknown | | + + +---------+ + | Gilroygracie Red) | ECON | Unknown | | | Kalpesh | | | | + + +---------+ + Care Team Providers + +------+ + | Care Informatics Physician Liaison Name | Role | Phone | + +------+ + | Mike Saucedo MD | PCP | | + +------+ + Encounter Details +--------+ + + + + | Date | Type | Department | Care Team | Description | +--------+ + + + + | 05/06/ Hospital | [facility] | Offenstein, | Cough | | 2013 | Encounter | MED CTR XRAY [address] | Jenna George MD | | | | | [address] | | | | | | [place] [address] | | | | | | [phone] | | | +--------+ + + + [...] at Time of Discharge + + + +---------+--------+ + | Medication | Sig | Dispensed | Refills | Start | End Date | | | | | | Date | | + + + +---------+--------+ + | cholecalciferol | Take 2,000 Units by | | 0 | | | | (VITAMIN D-3) 2000 | mouth Daily. | | | | 6 | | UNITS TABS | | | | | | + + + +---------+--------+ + | tiotropium | Inhale 18 mcg into | | 0 | | | | (SPIRIVA) 18 mcg | the lungs Daily. | | | | 4 | | inhalation capsule | | | | | | + + + +---------+--------+ + documented as of this encounter Plan of Treatment +--------+---------+ + + + | Date | Type | Specialty | Care Team | Description | +--------+---------+ + + + | 07/08/ | Office | Cardiology | Nannette Morrison, | | | 2018 | Visit | | MD [address] | | | | | | [place] | | | | | | [address] | | | | | | | | +--------+---------+ + + + | 11/04/ | Office | Pulmonology | Sukhjinder, | | | 2019 | Visit | | Windy Aldrich, | | | | | | MD [address] | | | | | | [place] | | | | | | [place] [address] | | | | | | [phone] | | | | | | | | +--------+---------+ + + + documented as of this encounter Procedures + +--------+ + + + | Procedure Name | Priori | Date/Time | Associated Diagnosis | Comments | | | ty | | | | + +--------+ + + + | XR CHEST PA AND | Routin | 05/06/2014 | Cough | Results for this | | LATERAL | e | 9:10 AM | | procedure are in the | | | | PDT | | results section. | + +--------+ + + + | DIAGNOSTIC REPORT - | | 05/06/2014 | | | | EXTERNAL SCAN | | 12:00 AM | | | | | | PDT | | | + +--------+ + + + documented in this encounter Results XR Chest PA and Lateral (05/06/2014 9:10 [...] + | MISCELLANEOUS LAB | | | [phone] | + +---------+ + + | MISCELANIOUS LAB | | | [phone] | + +---------+ + + documented in this encounter Visit Diagnoses + + | Diagnosis | + + | Cough | + + documented in this encounter"
--- OUTSIDE RECORDS SUMMARY | ~2019-06-13 | XMS | Encounter Summary ---
Demographics + + + | Address | [address] | | | [place] [address] | + + + | Home Phone [...] + + | Author | [facility] | | | and [place] | + + + | Organization | [facility] | | | [...] Team Providers + +------+ + | Care Food Chemist Name | Role | Phone | + +------+ + | Mike Saucedo MD | PCP | | + +------+ + Encounter Details +--------+ + + + + | Date | Type | Department | Care Team | Description | +--------+ + + + + | 05/21/ | Hospital | [facility] GENERIC IP | Conversion | Diagnosis unknown | | 2016 | Encounter | CONVERSION [address] | Transaction, | | | | [address] | Provider Unknown | | | | | [place], [place] | [phone] | | | | | [address] | | | | | | [phone] | | | +--------+ + + + [...] [place] | | | | | | [address] | | | | | | | | +--------+---------+ + + + | 11/04/ | Office | Pulmonology | Sukhjinder, | | | 2019 | Visit | | Windy Aldrich, | | | | | | MD [address] | | | | | | [place] | | | | | | [place] [address] | | | | | | [phone] | | | | | | | | +--------+---------+ + + + documented as of this encounter Procedures + +--------+ + + + | Procedure Name | Priori | Date/Time | Associated Diagnosis | Comments | | | ty | | | | + +--------+ + + + | CT CHEST W WO | Routin | 10/25/2015 | | Results for this | | CONTRAST | e | 7:27 PM | | procedure are in the | | | | PDT | | results section. | + +--------+ + + + documented in this encounter Results CT Chest w wo Contrast (10/25/2015 7:27 PM PDT) + + | Specimen | + + | | + + + + + | Narrative | Performed At | + + + | This is a non-reportable procedure without a radiologist report and | | | is used for image storage only | | + + + + + | Procedure Note | + + | Mookie Garcia - 03/05/2019 1:13 PM PDT This is [...]
--- OUTSIDE RECORDS SUMMARY | ~2019-06-13 | XMS | Encounter Summary ---
Demographics + + + | Address | [address] | | | [place] [address] | + + + | Home Phone [...] + + | Author | [facility] | | | and [place] | + + + | Organization | [facility] | | | [...] Team Providers + +------+ + | Care Gas Engine Operator Name | Role | Phone | + +------+ + PCP | Unavailable | + +------+ + Encounter Details +--------+ + + + + | Date | Type | Department | Care Team | Description | +--------+ + + + + | 11/29/ | Hospital | [facility] | | | | 1993 - | Encounter | MED CTR GENERIC OP | | | | | | CONV DEPT [address] | | | | 02/26/ | | [place], | | | | 1994 | | [place] [address] | | | | | | [phone] | | | +--------+ + + + [...] [place] | | | | | | [address] | | | | | | | | +--------+---------+ + + + | 11/04/ | Office | Pulmonology | Sukhjinder, | | | 2020 | Visit | | Windy Aldrich, | | | | | | [address] | | | | | | [place], | | | | | | [place] [address] | | | | | | [phone] | | | | | | | | +--------+---------+ + + + documented as of this encounter Visit Diagnoses Not on filedocumented in this encounter"
--- OUTSIDE RECORDS SUMMARY | ~2019-06-13 | XMS | Encounter Summary ---
Demographics + + + | Address | [address] | | | [place] [address] | + + + | Home Phone | | + + + | Preferred Language | Unknown | + + + | Marital Status | | + + + | Yarsanism Affiliation | 1041 | + + + | Race | Unknown | + + + | Ethnic Group | Unknown | + + + Author + + + | Author | [facility] | | | and [place] | + + + | Organization | [facility] | | | and [...] Team Providers + +------+ + | Care Director Of Vendor Management Name | Role | Phone | + [...] | | Pulmonary | Offenstein, | [address] [place] | | | | | nodules | Jenna B, | [place], | | | | | Procedures | MD [address] | [place] [address] | | | | | CT Chest wo | [address] | Phone: | | | | | Contrast | [place], | [phone] | | | | | | [place] [address] | Fax: | | | | | | | [phone] | +--------+--------+ + + + + Reason [...] | (Primary Dx); | | | | [place], | | Obstructive chronic | | | | [place] [address] | | bronchitis ([facility]); | | | | [phone] | | Chronic rhinitis; | | | | | | Bronchiectasis | | | | | | ([facility]); GERD | | | | | | [...] exhalations with the airway open, making a gagnon, gagnon, gagnon sound. 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 [employer] Social History Main Topics Smoking status: Former Smoker -- 0.7 packs/day for 40 years Types: Cigarettes Quit date: 05/06/2009 Smokeless tobacco: None Alcohol Use: No Drug Use: No Sexually Active: None Other Topics Concern None Social History Narrative [place]: her husbandG[place] up: [place] previously lived in: [place] onlyExp osure to toxic chemicals: DDT on crops and in well water, [facility]Exposure to asbest os: noExposure to tuberculosis: no [...] made to ensure accuracy; however, inadvertent computerized nuclear waste management engineer errors may be pre sent. documented in [...] [place] | | | | | | [id number] | | | | | | | | +--------+---------+ + + + | 11/04/ | Office | Pulmonology | Sukhjinder, | | | 2019 | Visit | | Windy Aldrich, | | | | | | MD [address] | | | | | | [place] | | | | | | [place] [address] | | | | | | [phone] | | | | | | | [...] Chest CT dated May 17, 2014. | [facility] | | TECHNIQUE: Axial images are obtained from thoracic inlet to [facility] | | abdomen without contrast. DOSE: [...] [address] | [place] | [phone] | | [facility] | | [address] | | | - IMAGING | | [...]
--- OUTSIDE RECORDS SUMMARY | ~2019-06-13 | XMS | Encounter Summary ---
Demographics + + + | Address | [address] | | | [place] [address] | + + + | Home Phone | | + + + | Preferred Language | Unknown | + + + | Marital Status | | + + + | Holiness Affiliation | 1041 | + + + | Race | Unknown | + + + | Ethnic Group | Unknown | + + + Author + + + | Author | [facility] | | | and [place] | + + + | Organization | [facility] | | | and [place] | + + + | Address | Unknown | + + + | Phone | Unavailable | + + + Support + + +---------+ + | Name | Relationship | Address | Phone | + + +---------+ + | Sade Beckwith | ECON | Unknown | | + + +---------+ + | Summitgracie Red) | ECON | Unknown | | | Kalpesh | | | | + + +---------+ + Care Team Providers + +------+ + | Care Sample Grader Name | Role | Phone | + [...] + + | 07/18/ | Telephone | [facility] | uSnitha Banegas, | Hospital Follow-up | | 2018 | | MED CTR PHARMACY | PharmD [address] | | | | | [address] | [address] | | | | | [place] [address] | [place] [address] | | | | | [phone] | [phone] | | +--------+ + + + + [...] [place] | | | | | | [id number] | | | | | | | | +--------+---------+ + + + | 11/04/ | Office | Pulmonology | Sukhjinder, | | | 2019 | Visit | | Windy Aldrich, | | | | | | MD [address] | | | | | | [place] | | | | | | [place] [address] | | | | | | [phone] | | | | | | | | +--------+---------+ + + + documented as of this encounter Visit Diagnoses Not on filedocumented in this encounter"
--- OUTSIDE RECORDS SUMMARY | ~2019-06-13 | XMS | Encounter Summary ---
Demographics + + + | Address | [address] | | | [place] [address] | + + + | Home Phone | | + + + | Preferred Language | Unknown | + + + | Marital Status | | + + + | Advent Affiliation | 1041 | + + + | Race | Unknown | + + + | Ethnic Group | Unknown | + + + Author + + + | Author | [facility] | | | and [place] | + + + | Organization | [facility] | | [...] Team Providers + +------+ + | Care Thermostatic Controls Supervisor Name | Role | Phone | + +------+ + | Mike Saucedo MD | PCP | | + +------+ + Encounter Details +--------+ + + + + | Date | Type | Department | Care Team | Description | +--------+ + + + + | 10/24/ | Hospital | [facility] | Offenstein, | Obstructive chronic | | 2016 | Encounter | MED CTR PULMONARY | Jenna George MD | bronchitis (HCC) | | | | FUNCTION [address] | | | | | | [place], | | | | | | [place] [address] | | | | | | [phone] | | | +--------+ + + + [...] | | (METROLOTION) 0.75 % | topically 2 times | | | | 6 | | LOTN | daily. | | | | | + + + +---------+ + + | ALEXANDR HANDPRESTONALER | INHALE CONTENT OF | 30 | [...] [place] | | | | | | 337282 | | | | | | | | +--------+---------+ + + + | 11/04/ | Office | Pulmonology | Sukhjinder, | | | 2019 | Visit | | Windy Aldrich, | | | | | | MD [address] | | | | | | [place], | | | | | | [place] [address] | | | | | | [phone] | | | | | | | | +--------+---------+ + + + documented as of this encounter Procedures + +--------+ + + + | Procedure Name | Priori | Date/Time | Associated Diagnosis | Comments | | | ty | | | | + +--------+ + + + | PFT PULMONARY | ART | 10/30/2015 | Obstructive | Results for this | | FUNCTION TESTING | | 1:45 PM | chronic bronchitis | procedure are in the | | ORDERS | | PDT | ([facility]) | results section. | + +--------+ + + + | PFT PULMONARY | ART | 10/30/2015 | Obstructive | Results for this | | FUNCTION TESTING | | 1:45 PM | chronic bronchitis | procedure are in the | | ORDERS | | PDT | ([facility]) | results section. | + +--------+ + + + | PFT PULMONARY | ART | 10/30/2015 | Obstructive | Results for this | | FUNCTION TESTING | | 1:45 PM | chronic bronchitis | procedure are in the | | ORDERS | | PDT | ([facility]) | results section. | + +--------+ + + + | PFT PULMONARY | ART | 10/30/2015 | Obstructive | Results for this | | FUNCTION TESTING | | 1:45 PM | chronic bronchitis | procedure are in the | | ORDERS | | PDT | ([facility]) | results section. | + +--------+ + + + | DIAGNOSTIC REPORT - | | 10/25/2015 | | | | EXTERNAL SCAN | | 12:00 AM | | | | | | PDT | | | + +--------+ + + + documented in this encounter Results PFT PULMONARY FUNCTION TESTING ORDERS Full PFT (Nicola w/BD, lung volumes, diffusion)?: Yes (10/30/2015 1:45 PM PDT) + + + | Narrative | Performed At | + + + | Jenna Maria MD 10/30/2015 13:45 PULMONARY | | | FUNCTION TESTING METHOD: Spirometry was obtained pre | | | administration of inhaled bronchodilator only. Lung volumes were | | | obtained by body plethysmography. Diffusion capacity was obtained by | | | single breath method and was not corrected for a measured | | | hemoglobin. ATS standards were met. SPIROMETRY: FVC was | | | normal at 2.61 L or 92% of predicted. FEV1 was normal at 1.79 L or | | | 85% of predicted. FEV1/FVC ratio was reduced at 69%. LUNG | | | VOLUMES: Total lung capacity was elevated at 7.74 L or 151% of | | | predicted. Residual volume was elevated at 5.13 L or 219% of | | | predicted. RV/TLC ratio was elevated at 66% or 144 % of predicted. | | | DIFFUSION CAPACITY: Diffusion capacity was mildly reduced at 15.2 | | | mL/mmHg per minute or 67% of predicted and was not corrected for a | | | measured hemoglobin. IMPRESSION: Spirometry is consistent with | | | mild obstructive physiology. Lung volume testing is consistent with | | | obstructive physiology. Diffusion capacity is mildly reduced and is | | | not corrected for measured hemoglobin. Compared to testing done in | | | April 2014, her FVC has decreased by 3%, her FEV1 has decreased | | | by 1%, her TLC has decreased by 36%, her RV has decreased by 45% and | | | her DLCO has decreased by 9%. Overall, her breathing tests show | | | decreased air trapping. Electronically signed by: Jenna Reynolds | | | MD Crow [facility]30/2015 13:40 [facility] | | | [place] CC: Mike Saucedo MD | | + + + documented in this encounter Visit Diagnoses + + | Diagnosis | + + | Obstructive chronic bronchitis (HCC) Obstructive chronic bronchitis without | | exacerbation | + + documented in this encounter"
--- OUTSIDE RECORDS SUMMARY | ~2019-06-13 | XMS | Encounter Summary ---
Demographics + + + | Address | [address] | | | [place] [address] | + + + | Home Phone | | + + + | Preferred Language | Unknown | + + + | Marital Status | | + + + | Temple Affiliation | 1041 | + + + | Race | Unknown | + + + | Ethnic Group | Unknown | + + + Author + + + | Author | [facility] | | | and [place] | + + + | Organization | [facility] | | | [...] Team Providers + +------+ + | Care Laundry Folder Name | Role | Phone | + +------+ + | Mike Saucedo MD | PCP | | + +------+ + Encounter Details +--------+ + + + + | Date | Type | Department | Care Team | Description | +--------+ + + + + | 05/21/ | Hospital | [facility] GENERIC IP | Conversion | Diagnosis unknown | | 2016 | Encounter | CONVERSION [address] | Transaction, | | | | [address] | Provider Unknown | | | | | [place], [place] | [phone] | | | | | [address] | | | | | | [phone] | | | +--------+ + + + [...] + | Misc. Devices | Dx: 494.0 INGEL: [...] [place] | | | | | | [address] | | | | | | | | +--------+---------+ + + + | 11/04/ | Office | Pulmonology | Sukhjinder, | | | 2019 | Visit | | Windy Aldrich, | | | | | | MD [address] | | | | | | [place] | | | | | | [place] [address] | | | | | | [phone] | | | | | | | [...]
--- OUTSIDE RECORDS SUMMARY | ~2019-06-13 | XMS | Encounter Summary ---
Demographics + + + | Address | [address] | | | [place] [address] | + + + | Home Phone | | + + + | Preferred Language | Unknown | + + + | Marital Status | | + + + | Quaker Affiliation | 1041 | + + + | Race | Unknown | + + + | Ethnic Group | Unknown | + + + Author + + + | Author | [facility] | | | and [place] | + + + | Organization | [facility] | | [...] Providers + +------+ + | Care Data Warehouse Specialist Name | Role | Phone | + +------+ + | Mike Saucedo MD | PCP | | + +------+ + Encounter Details +--------+ + + + + | Date | Type | Department | Care Team | Description | +--------+ + + + + | 04/28/ | Hospital | [facility] | Conversion | Unknown cause of | | 2015 | Encounter | CONVERSION [address] | Transaction, | injury, initial | | | | [address] | Provider Unknown | [facility] | [facility] | [phone] | | | | | [address] | | | | | | [phone] | | | +--------+ + + + [...] | 1 | 06/04/20 | | | (ALDOLLDaniela) MISC | months Use as | | [...] [place] | | | | | | [address] | | | | | | | | +--------+---------+ + + + | 11/04/ | Office | Pulmonology | Sukhjinder, | | | 2019 | Visit | | Windy Aldrich, | | | | | | MD [address] | | | | | | [place], | | | | | | [place] [address] | | | | | | [phone] | | | | | | | | +--------+---------+ + + + documented as of this encounter Procedures + +--------+ + + + | Procedure Name | Priori | Date/Time | Associated Diagnosis | Comments | | | ty | | | | + +--------+ + + + | ECHO COMPLETE | Routin | 02/18/2015 | | Results for this | | | e | 6:45 PM | | procedure are in the | | | | PDT | | results section. | + +--------+ + + + documented in this encounter Results ECHO Complete (02/18/2015 6:45 PM PDT) + + | Specimen | [...] + | Diagnosis | + + | Unknown cause of injury, initial encounter | + + documented in this encounter"
--- OUTSIDE RECORDS SUMMARY | ~2019-06-13 | XMS | Encounter Summary ---
Demographics + + + | Address | [address] | | | [place] [address] | + + + | Home Phone | | + + + | Preferred Language | Unknown | + + + | Marital Status | | + + + | Congregation Affiliation | CAT | + + + | Race | White | + + + | Ethnic Group | Not or | + + + Author + + + | Author | [facility] | + + + | Organization | [facility] | + + + | Address | Unknown | + + + | Phone | Unavailable | + + + Support + + + + + | Name | Relationship | Address | Phone | + + + + + | Jer P[place] | ECON | [address] | | | | [place], [place] | | | | | [address] | | + + + + + Care Team Providers + +------+ + | Care Magnetic Prospecting Operator Name | Role | Phone | + +------+ + | Mike Saucedo MD | PCP | | + +------+ + Encounter Details +--------+ + + + + | Date | Type | Department | Care Team | Description | +--------+ + + + + | 05/30/ | Telephone | [facility] | Doug March, | | | 2010 | | [place] [facility] [address] | [address] | | | | | [address] | [facility] | | | | | Mailcode: Center | [place], [place] | | | | | [facility] and | [address] | | | | | [facility] [address] | [phone] | | | | | [place], [place] | | | | | | [address] | | | | | | [phone] | | | +--------+ + + + [...]
--- OUTSIDE RECORDS SUMMARY | ~2019-06-13 | XMS | Encounter Summary ---
Demographics + + + | Address | [address] | | | [place] [address] | + + + | Home Phone | | + + + | Preferred Language | Unknown | + + + | Marital Status | | + + + | Rastafarian Affiliation | 1041 | + + + | Race | Unknown | + + + | Ethnic Group | Unknown | + + + Author + + + | Author | [facility] | | | and [place] | + + + | Organization | [facility] | | | and [place] | + + + | Address | Unknown | + + + | Phone | Unavailable | + + + Support + + +---------+ + | Name | Relationship | Address | Phone | + + +---------+ + | Sade Beckwith | ECON | Unknown | | + + +---------+ + | Yuri BenavidezJer) | ECON | Unknown | | | Kalpesh | | | | + + +---------+ + Care Team Providers + +------+ + | Care Numberer And Wirer Name | Role | Phone | + +------+ + | Alexandre Taylor MD | PCP | | + +------+ + Reason for Referral Evaluate & Treat (Routine) +--------+ + + + + + | Status | Reason | Specialty | Diagnoses / | Referred By | Referred To | | | | | Procedures | Contact | Contact | +--------+ + + + + + | Closed | Specialty | Physical | Diagnoses | Dusty, | Jerald Montano | | | Services | Medicine and | Numbness of | Jerald E Daniela, | E MD Daniela [address] | | | Required | Rehabilitatio | foot | [address] | | | | n | Weakness of | [address] | [place], | | | | | both legs | [place], | [place] [address] | | | | | Chronic | [place] [address] | Phone: | | | | | midline low | Phone: | [phone] | | | | | back pain | [phone] | Fax: | | | | | with | Fax: | [phone] | | | | | bilateral | [phone] | | | | | | sciatica | | | | | | | Procedures | | | | | | | DOS 09/05/16 | | | +--------+ + + + + + Reason for Visit + + + | Reason | Comments | + + + | Leg Pain | BLE heaviness, tingling, numbness | + + + Evaluate & Treat (Routine) +--------+--------+ + + + + | Status | Reason | Specialty | Diagnoses / | Referred By | Referred To | | | | | Procedures | Contact | Contact | +--------+--------+ + + + + | Closed | | Physical | Diagnoses | Lewis, | Jerald Montano | | | | Medicine and | Neuropathy | Alexandre | Shree Suarez MD [address] | | | | Rehabilitatio | | MD Destiny | [address] | | | | n | | [address] | [place], | | | | | | [place] | [place] [address] | | | | | | [place], | Phone: | | | | | | [place] [address] | [phone] | | | | | | Phone: | Fax: | | | | | | [phone] | [phone] | | | | | | Fax: | | | | | | | [phone] | | +--------+--------+ + + + + Encounter Details +--------+---------+ + + + | Date | Type | Department | Care Team | Description | +--------+---------+ + + + | 07/12/ | Office | [facility] | Jerald Montano, | Numbness of foot | | 2015 | Visit | PHYSIATRY [address] | MD [address] | (Primary Dx); | | | | [place], | [place], [place] | Weakness of both | | | | [place] [address] | [address] | legs; Chronic | | | | [phone] | | midline low back | | | | | | pain with bilateral | | | | | | sciatica | +--------+---------+ + + + Social History [...] + + + | Blood Pressure | 109/67 | 07/12/2016 9:43 AM | | | | | PST | | + + + + + | Pulse | 69 | 07/12/2016 9:43 AM | | | | | PST | | + + + + + | Temperature | - | - | | + + + + + | Respiratory Rate | 16 | 07/12/2016 9:43 AM | | | | | PST | | + + + + + | Oxygen Saturation | - | - | | + + + + + | Inhaled Oxygen | - | - | | | Concentration | | | | + + + + + | Weight | 63 kg (139 lb) | 07/12/2016 9:43 AM | | | | | PST | | + + + + + | Height | 165.1 cm (5' 5") | 07/12/2016 9:43 AM | | | | | PST | | + + + + + | Body Mass Index | 23.13 | 07/12/2016 9:43 AM | | | | | PST | | + + + + + documented in this encounter Patient Instructions Patient Instructions Jerald Montano MD - 07/12/2016 10:41 AM Charly [facility] and EMG appointment. Nerve conduction studies and EMG require a great deal of time to complete. If you will be unable to make your appointment please contact the clinic at least one full business day yumiko or to your appointment . Missed appoints without cancellation will only be re scheduled once. Children under the age of 13 are not permitted in the room during the nerve study. If acco mpanied by children under the age of 13, they will need an adult to supervise them, while th ey wait in the lobby. Prior to your appointment wash the skin with soap and water. This is to remove any of the natural oils on the skin which may interfere with the completion of the study. Please do not wear any lotion prior to the study as lotion may also interfere with the comp letion of the study. When attending your study please bring appropriate attire. If you are having a study of th e upper extremities please bring a short sleeve shirt to wear during the study. If you are having a study of the lower extremities please bring shorts to wear during the study. At the time of your study, please remind the physician if you are taking any blood thinning medications such as Coumadin, or heparin. At the time of your study, please remind the physician if you have an implanted electronic device such as a pacemaker. documented in this encounter Progress Notes Jerald Montano MD - 07/12/2016 11:07 AM PST [facility] PHYSIATRY [address] [address] OFFICE NOTE JERALD MONTANO JR, MD Patient: SHIREEN MARTINEZ Admitting: MR #: [id number] LOC: PT TYPE: Adm Date: 07/12/2016 : 1940 PHYSICAL MEDICINE AND REHABILITATION PROGRESS NOTE DATE OF : 1940 PRIMARY CARE PROVIDER: Alexandre Taylor MD DATE OF SERVICE: 07/12/2016 PATIENT IDENTIFICATION: A 76-year-old female with chief complaint of bilateral lower extr emity numbness and heaviness. Also, with history of back pain. HISTORY OF PRESENT ILLNESS: Ms. Martinez reports that she started to develop numbness in her toes around 4 years ago. She indicates that the numbness is relatively constant in ti prasanth, but it does vary in intensity. She indicates that it may be worse with activities. She indicates that it was worse when she lived in a 3 story home. She reports that she re cently moved to a single story home. She indicates that symptoms have improved to some deg ree since her move. She indicates that she has intermittent numbness in the fingertips of her hands, which only occur when she is caring grocery bags otherwise she has not noticed any numbness in her hands. She reports that over the last year and a half she has develope d a heaviness in both legs. She feels like the calf and feet portion of her legs are very heavy. She denies any weakness. She denies legs giving out on her. She denies foot drop or foot slap. She indicates that for the last 2 years she has been getting cramps in the right calf muscle. It usually occurs first thing in the morning when she wakes up. She in dicates that she has to stretch out her calf muscle. She denies cramping sensation with s tanding or walking. She has history of back pain. She indicates that she has not necessar zayda correlated back pain to her leg symptoms. She does sometimes feel symptoms from the or dline low back radiating into the lower extremities. She denies incontinence of bowel or b ladder. She denies saddle anesthesia. She reports that the numbness as well as feelings o f heaviness are stronger in the right leg. The cramping is also stronger in the right leg. She denies history of diabetes. She denies history of thyroid disease. She denies histo ry of prior heart attack or stroke. She had history of breast cancer in the . She h ad lumpectomy and radiation treatment. She denies heavy alcohol consumption in her history . She denies history of exposure to chemicals. She denies history of chemotherapy. She h as scoliosis on recent lumbar MRI. She reports that scoliosis is something that must have developed with age. She denies any family history of numbness in the legs or feet. She h as a history of smoking. She quit smoking 10 years ago. She has had evaluation for circul ation issues. While she does have arteriosclerosis of the abdominal aorta, she still maint ains relatively normal blood flow into the lower extremities. She has had lumbar MRI 01/20. This imaging was personally reviewed by me. Lumbar MRI from 02/03/2016 demonstrates increased lumbar lordosis. There is lumbar scolios is. There is degenerative disc disease. There is severe neural foraminal narrowing with i mpingement upon the exiting nerve root at right L5-S1. There is mild to moderate neural fo raminal narrowing on the left at this level. There is no evidence of severe spinal stenos is. She reports the numbness seems to be slowly progressively and getting worse. She is wonde ring what is causing it. Ultimately, she reports that her symptoms are not significantly bothersome to her. She re ports that they are not particularly painful. She indicates that they are not debilitating. She is wondering if she just ignores them what might be in her future. She indicates damian t at present symptoms are not necessarily bad enough for her to want to do anything about them, but she would also like to know where they are coming from and what her future progno sis might be. For now, she declines starting any new medication. She reports that her sym ptoms are certainly not bad enough to consider any type of surgical intervention. She repo rts that symptoms are not bad enough to consider a back injection. She indicates that she would like some diagnostic explanations so that way she would know what to expect. ALLERGIES: NO KNOWN DRUG ALLERGIES. CURRENT MEDICATIONS: Calcium carbonate daily. Domperidone 10 mg 4 times daily. Metronidazole cream topically twice daily. Omeprazole 20 mg every morning. Spiriva inhaler. REVIEW OF SYSTEMS: She denies nausea, vomiting, fever, chills, chest pain, skin breakdown , rash, incontinence of bowel or bladder, saddle anesthesia, lymph gland swelling. She wasserman s note some mottling of the skin in the feet. She does have thickening of her left 1st toe nail. She denies lymph gland swelling or unexplained weight loss. She denies incontinence of bowel or bladder. All other review of systems negative. PAST MEDICAL HISTORY: She has history of breast cancer with lumpectomy and radiation. Odalys jose has a history of rheumatic heart disease, rosacea, atrial flutter, gastroparesis, scolios is, hiatal hernia, chronic sinusitis, carotid artery disease, osteopenia, history of right knee meniscal tear, history of appendicitis with rupture. She has aortic insufficiency. She has gastroesophageal reflux disease. PAST SURGICAL HISTORY: Includes knee arthroscopy, bronchoscopy, gastric fundoplication, s kin cancer excision, bladder repair, appendectomy, breast lumpectomy, colonoscopy, tonsille ctomy. FAMILY MEDICAL HISTORY: Her parents are . She denies any family history of nerve problems. She reports that her parents may have had poor circulation in their feet. In t he family, there is history of stroke, heart disease, diabetes, ovarian cancer, anxiety dis order, bipolar disorder, dementia. SOCIAL MEDICAL HISTORY: She is retired. She denies consumption of alcohol. She denies u se of illicit drugs. She quit smoking in 2008. Previously, she quit smoking after 40 years , smoking 3/4 pack per day. PHYSICAL EXAMINATION: VITAL SIGNS: Heart rate 69, respiratory rate 16, blood pressure 109/67, weight 139 pounds , height 5 feet 5 inches. GENERAL: No acute distress. Alert to person, place, time and situation. HEENT: Extraocular muscles intact. Sclerae are clear. NECK: Minor limitation in range of motion. Spurling's test negative. Axial loading test negative. HEART: Regular rate, no murmurs noted. She did have one gallop but otherwise has a regul ar rhythm. LUNGS: Clear. No wheezing, no crackles. Slight increase in expiratory phase. ABDOMEN: Nontender, nondistended, positive for bowel sounds. BACK: Asymmetric, significa nt lumbar scoliosis. Seated straight leg raise equivocal. She has numbness in the toes un certain as to whether or not the changes with straight leg raise maneuver. Maksim's test negative bilaterally. EXTREMITIES: Reveals mottling of the skin in both lower extremities. She has erythematous changes on the surface of the toes and the feet. Certainly it appears that she has some de gree of circulatory issues in the legs. She has high arches. She has very long toes. The re is thickening of the end of the toenail on the left 1st toe. NEUROLOGICAL: Demonstrate s decreased sensation primarily in a stocking distribution. Reflexes are 1+ over patella b ilaterally. Achilles reflexes could not be elicited on the right, trace Achilles reflex wa s seen on the left. No clonus to either ankle. Babinskis was downgoing bilaterally but n early unresponsive. Motor examination demonstrates 4/5 extensor hallucis longus strength b ilaterally. There is 5/5 ankle dorsiflexion, ankle plantarflexion, knee flexion, knee exte nsion strength in both lower extremities. Gait is minorly antalgic. Sensation, strength, coordination, reflexes are intact in both upper extremities. DATABASE: Please see review of lumbar MRI from 01/[address] angiogram of lower extremities reviewed by me 01/2016. She appears to maintain intact circulation into the distal lower extremities. She does have aortic arteriosclerosis. I c oncur with findings as reported by the radiologist. ASSESSMENT: 1. Numbness in both feet, ICD-10 R20.0. 2. Weakness both legs, ICD-10 M62.81. 3. Chronic midline back pain, possible sciatica, ICD-10 M54.41 and M54.42. PLAN: I discussed with Ms. Martinez her differential diagnosis today. We discussed that a component of symptoms still may be circulatory in nature. Certainly she has mottling of the skin. A Reynaud's type phenomenon could be considered. She may have some mild venous stasis changes. We discussed the differential including peripheral neuropathy versus lumbar radiculopathy. It is very possible that this is coming from her back based off of her lumbar imaging. S he does have neural foraminal narrowing, which could be affecting the exiting right L5 nerv e root. This would definitely result in the numbness in her toes that she speaks of. Her symptoms are worse on the right side, which also correlates with the findings on her lumbar MRI. Peripheral neuropathy is still within the differential diagnosis. She is not necessarily interested in further treatment at this time. She declines physical therapy. She does not want to start new medication. She does not necessarily want to try epidural steroid injection. She certainly does not want any type of surgical interventio n. She is, however, curious as to what is causing symptoms as well as to help guide future prognosis. At this time, she will return to clinic for nerve conduction study and EMG of both lower extremities. We will be evaluating for peripheral neuropathy versus lumbar rad iculopathy versus both. After nerve study is complete, hopefully, we can give her further diagnostic and potentially some prognostic information. Today we discussed that if she has lumbar radiculopathy, it may get worse over time. We discussed the potential for permane nt nerve damage. We also discussed that with peripheral neuropathy there are some forms th at may be treatable. If that is the case, it is important to identify them and treat them. We discussed that there are some peripheral neuropathy such as a hereditary neuropathies that may not necessarily have a cure, but may have some therapies that may reduce symptoms . We discussed the difference between palliative treatment versus curative treatment. Approximately 45 minutes was spent face to face today with Ms. Martinez, over half of [facility] was spent formulating and discussing her medical treatment plan. Thank you for allowing me to be involved in the care of your patient. If you have any ques tions regarding the care of Ms. Martinez, please do not hesitate to call. JERALD MONTANO JR, MD Dictated by JERALD MONTANO JR, MD 07/12/2016 11:07:21 Transcribed on 07/12/2016 12:19:08 by job# [id number] Confirmation #: [id number] cc: ALEXANDRE TAYLOR MD [facility], Jerald Suarez MD - 07/12/2016 11:07 AM PSTThis office note has been dictated. Report Confirmation# [id number] documented in this encounter Plan of Treatment +--------+---------+ + + + | Date | Type | Specialty | Care Team | Description | +--------+---------+ + + + | 07/08/ | Office | Cardiology | Nannette Morrison, | | | 2018 | Visit | | MD [address] | | | | | | [place], [place] | | | | | | [address] | | | | | | | | +--------+---------+ + + + | 11/04/ | Office | Pulmonology | Sukhjinder, | | | 2019 | Visit | | Windy Aldrich, | | | | | | MD [address] | | | | | | [place], | | | | | | [place] [address] | | | | | | [phone] | | | | | | | | +--------+---------+ + + + + + +--------+ + + | Name | Type | Priori | Associated Diagnoses | Order Schedule | | | | ty | | | + + +--------+ + + | Ambulatory referral | Outpatient | Routin | Numbness of foot | Ordered: 07/12/2016 | | to Physical Medicine | Referral | e | Weakness of both | | | Rehab | | | legs Chronic | | | | | | midline low back | | | | | | pain with bilateral | | | | | | sciatica | | + + +--------+ + + documented as of this encounter Visit Diagnoses + + | Diagnosis | + + | Numbness of foot - Primary Disturbance of skin sensation | + + | Weakness of both legs Other musculoskeletal symptoms referable to limbs | + + | Chronic midline low back pain with bilateral sciatica | + + documented in this encounter
--- OUTSIDE RECORDS SUMMARY | ~2019-06-13 | XMS | Encounter Summary ---
Demographics + + + | Address | [address] | | | [place] [address] | + + + | Home Phone | | + + + | Preferred Language | Unknown | + + + | Marital Status | | + + + | Moravian Affiliation | 1041 | + + + | Race | Unknown | + + + | Ethnic Group | Unknown | + + + Author + + + | Author | [facility] | | | and [place] | + + + | Organization | [facility] | | | and [place] | + + + | Address | Unknown | + + + | Phone | Unavailable | + + + Support + + +---------+ + | Name | Relationship | Address | Phone | + + +---------+ + | Sade Beckwith | ECON | Unknown | | + + +---------+ + | [place] | ECON | Unknown | | | Kalpesh | | | | + + +---------+ + Care Team Providers + +------+ + | Care Train Planner Name | Role | Phone | + +------+ + | Mike Saucedo MD | PCP | | + +------+ + Reason for Visit +---------+ + | Reason | Comments | +---------+ + | Results | | +---------+ + Encounter Details +--------+ + + + + | Date | Type | Department | Care Team | Description | +--------+ + + + + | 03/21/ | Telephone | [facility] [place] | [place], | Results | | 2014 | | PULMONARY [address] | Jenna George MD | | | | | [place], | | | | | | [place] [address] | | | | | | [phone] | | | +--------+ + + + [...] [place] | | | | | | [address] | | | | | | | | +--------+---------+ + + + | 11/04/ | Office | Pulmonology | Sukhjinder, | | | 2019 | Visit | | Windy Aldrich, | | | | | | MD [address] | | | | | | [place], | | | | | | [place] [address] | | | | | | [phone] | | | | | | | | +--------+---------+ + + + + + +--------+ + + | Name | Type | Priori | Associated Diagnoses | Order Schedule | | | | ty | | | + + +--------+ + + | Oxygen, nocturnal | Respiratory | Routin | Pulmonary | Expected: 03/21/2015 | | | Care | e | hypertension due to | (Approximate), | | | | | left heart valvular | Expires: 03/21/2016 | | | | | disease (HCC) | | | | | | Obstructive chronic | | | | | | bronchitis (HCC) | | + + +--------+ + + | Overnight oximetry, | Respiratory | Routin | Pulmonary | Expected: 03/21/2015 | | oxygen | Care | e | hypertension due to | (Approximate), | | | | | left heart valvular | Expires: 03/20/2016 | | | | | disease (HCC) | | | | | | Obstructive chronic | | | | | | bronchitis (HCC) | | + + +--------+ + + documented as of this encounter Visit Diagnoses + + | Diagnosis | + + | 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
--- OUTSIDE RECORDS SUMMARY | ~2019-06-13 | XMS | Encounter Summary ---
Demographics + + + | Address | [address] | | | [place] [address] | + + + | Home Phone | | + + + | Preferred Language | Unknown | + + + | Marital Status | | + + + | Pentecostal Affiliation | CAT | + + + | Race | White | + + + | Ethnic Group | Not or | + + + Author + + + | Author | [facility] | + + + | Organization | [facility] | + + + | Address | Unknown | + + + | Phone | Unavailable | + + + Support + + + + + | Name | Relationship | Address | Phone | + + + + + | Jer Posey | ECON | [address] | | | | [place], [place] | | | | | [address] | | + + + + + Care Team Providers + +------+ + | Care Pulpit Operator Name | Role | Phone | + +------+ + | Mike Saucedo MD | PCP | | + +------+ + Encounter Details +--------+ + + + + | Date | Type | Department | Care Team | Description | +--------+ + + + + | 05/16/ | Hospital | Cardiac | Sj, Car Ecg Tech | | | 2010 | Encounter | Non-Invasive Testing | [address] | | | | | at [facility] | [facility] | | | | | [address] | [place] [address] | | | | | [facility] | | | | | | Mailcode: [id number] | | | | | | [facility] | | | | | | [facility], | | | | | | [place] [address] | | | | | | [phone] | | | +--------+ + + + [...] | 12 LEAD ECG | Routin | 05/16/2011 | Other specified | Results for this | | | e | 11:02 AM | pre-operative | procedure are in the | | | | PDT | examination | results section. | + +--------+ + + + documented in this encounter Results 12 LEAD ECG (05/16/2011 11:02 AM PDT) + + + + + [...] + + + + | P-R | 140 | ms | [facility] | | | INTERVAL | | | OF | | | | | | CARDIOLOGY | | + + + + + + | QRS | 82 | ms | [facility] | | | DURATION | | | OF | | | | | | CARDIOLOGY | | + + + + + + | QT | 444 | ms | [facility] | | | | | | OF | | | | | | CARDIOLOGY | | + + + + + + | QTC | 446 | ms | [facility] | | | | | | OF | | | | | | CARDIOLOGY | | + + + + + + | P AXIS | 28 | degrees | [facility] | | | | | | OF | | | | | | CARDIOLOGY | | + + + + + + | R AXIS | 0 | degrees | [facility] | | | | | | OF | | | | | | CARDIOLOGY | | + + + + + + | T AXIS | 24 | degrees | [facility] | | | | | | OF | | | | | | CARDIOLOGY | | + + + + + + | EKG | Normal sinus | | [facility] | | | DIAGNOSIS | rhythmNormal ECG"I have | | OF | | | | personally interpreted | | CARDIOLOGY | | | | this report, either | | | | | | alone or with a | | | | | | trainee."Confirmed by | | | | | | MISAEL ABREU ([id number]) | | | | | | on 05/16/2011 5:59:50 PM | | | | + + + + + + + + | Specimen | + + | | + + + + + | Narrative | Performed At | + + + | Please click | [facility] | | on view image for the detailed interpretation from [facility] results. | CARDIOLOGY | + + + + + + + + | Performing | Address | City/State/Zipcode | Phone Number | | Organization | | | | + + + + + | [facility] | [address] | [place], [place] | | | CARDIOLOGY | [address] | [address] | | + + + + + documented in this encounter Visit Diagnoses Not on filedocumented in this encounter
--- OUTSIDE RECORDS SUMMARY | ~2019-06-13 | XMS | Encounter Summary ---
Demographics + + + | Address | [address] | | | [place] [address] | + + + | Home Phone [...] | | + + +---------+ + | [place]) | ECON | Unknown | | | [place] | | | | + + +---------+ + Care Team Providers + +------+ + | Care Certified Flight Instructor Name | Role | Phone | + +------+ + | Mike Saucedo MD | PCP | | + +------+ + Reason for Visit + + + | Reason | Comments | + + + | Medication Question | L_Arginine and Vit B12 | + + + Encounter Details +--------+ + + + + | Date | Type | Department | Care Team | Description | +--------+ + + + + | 06/10/ | Telephone | [facility] | Jacqueline Sanchez, | Medication Question | | 2019 | | CARDIOLOGY [place] | Computer Systems Auditor | (L_Arginine and Vit | | | | [address] | | B12) | | | | [address] | | | | | | [place], [place] | | | | | | [address] | | | | | | [phone] | | | +--------+ + + + [...] [place] | | | | | | [address] | | | | | | | | +--------+---------+ + + + | 11/04/ | Office | Pulmonology | Sukhjinder, | | | 2019 | Visit | | Windy Aldrich, | | | | | | MD [address] | | | | | | [place] | | | | | | [place] [address] | | | | | | [phone] | | | | | | | | +--------+---------+ + + + documented as of this encounter Visit Diagnoses Not on filedocumented in this encounter"
--- OUTSIDE RECORDS SUMMARY | ~2019-06-13 | XMS | Encounter Summary ---
Demographics + + + | Address | [address] | | | [place] [address] | + + + | Home Phone | | + + + | Preferred Language | Unknown | + + + | Marital Status | | + + + | Denominational Affiliation | 1041 | + + + | Race | Unknown | + + + | Ethnic Group | Unknown | + + + Author + + + | Author | [facility] | | | and [place] | + + + | Organization | [facility] | | | [...] Team Providers + +------+ + | Care Vocational Technical Education Director Name | Role | Phone | + [...] | | | | | [address] | [place] | | | | | [place] | [phone] | | | | | [address] | | | | | | [phone] | | | +--------+ + + + [...] +----+---+ + + | | 1 | [place] | | | | 0 | 43-degrees | | | | 1 | | | | | 3 | | | +----+---+ + + | | 1 | First | | | | 0 | [address] | | | | 1 | | | | | 6 | | | +----+---+ + + | | 1 | [place] off | | | | 1 | [...] | 07/13/18950 by | 07/13/18 114 by Jaedn | | | Placement Time: 950 (created [...] [place] | | | | | | [address] | | | | | | | | +--------+---------+ + + + | 11/04/ | Office | Pulmonology | Sukhjinder, | | | 2019 | Visit | | Windy Aldrich, | | | | | | [address] | | | | | | [place], | | | | | | [place] [address] | | | | | | [phone] | | | | | | | [...] | | | Performing provider: OREN SEBASTIAN Fingerprint Clerk: Namrata Bro RN | | | Electronically [...] | RNElectronically Signed by: Oren Sebastian MD [facility] date/time: | | 07/13/2018 10:11 | |Ease [...] | | |Performing provider: OREN SEBASTIAN | |Fingerprint Clerk: Namrata Bro RN | | | | [...] - 07/13/2018 10:11 AM PST Anesthesia Airway Gusxmcefl49/23/2018 | | 9:51Preprocedure check: patient identified, suction, airway equipment checked, oxygen, | | airway assessed and patient reassessment prior to inductionRapid Sequence Induction: | | noMask ventilation: easyAttempts: 1Airway type: laryngeal maskSize: 4Cuffed: | | cuffedRoute, reference point: center of mouthTrauma: noneTube placement verification: | | carbon dioxide detectionPerforming provider: OREN SEBASTIAN TElectronically Signed by: | | Oren Sbeastian MD [facility] date/time: 07/13/2018 10:11 | | [...] mg | | | | PRN, Starting [place] 07/13/18 at | | 18 10:15 | [...]
--- OUTSIDE RECORDS SUMMARY | ~2019-06-13 | XMS | Encounter Summary ---
Demographics + + + | Address | [address] | | | [place] [address] | + + + | Home Phone | | + + + | Preferred Language | Unknown | + + + | Marital Status | | + + + | Gnosticism Affiliation | 1041 | + + + | Race | Unknown | + + + | Ethnic Group | Unknown | + + + Author + + + | Author | [facility] | | | and [place] | + + + | Organization | [facility] | | [...] Team Providers + +------+ + | Care Culinary Internship Name | Role | Phone | + +------+ + | Mike Saucedo MD | PCP | | + +------+ + Encounter Details +--------+ + + + + | Date | Type | Department | Care Team | Description | +--------+ + + + + | 05/07/ | Orders Only | [facility] [place] | [place], | Cough (Primary Dx) | | 2013 | | PULMONARY [address] | Jenna George MD | | | | | [place], | | | | | | [place] [address] | | | | | | [phone] | | | +--------+ + + + [...] [place] | | | | | | [address] | | | | | | | | +--------+---------+ + + + | 11/04/ | Office | Pulmonology | Sukhjinder, | | | 2019 | Visit | | Windy Aldrich, | | | | | | MD [address] | | | | | | [place] | | | | | | [place] [address] | | | | | | [phone] | | | | | | | | +--------+---------+ + + + documented as of this encounter Results Creatinine (05/07/2014 9:54 AM PDT) + +-------+ + + + | Component | Value | Ref Range | Performed | Pathologist | | | | | At | Signature | + +-------+ + + + | Creatinine | 0.65 | 0.60 - 1.30 | [facility] | | | | | mg/dL | [facility] | | | | [facility] | | | | | [facility] - | | | | | | LABORATORY | | + +-------+ + + + | eGFR if not | >60 | >=60 | [facility] | | | | | mL/min/1.73m2 | [facility] | | | [facility] | | | MEDICAL | | | [...] | + + + + + | [facility] | [address] | [place], [place] | [phone] | | [facility] | | [address] | | | - LABORATORY | | | | + + + + + | [facility] | [address] | [place], [place] | | | [facility] | | [address] | | | - LABORATORY | | | | + + + + + BUN (05/07/2014 9:54 AM PDT) + +-------+ + + + | Component | Value | Ref Range | Performed | Pathologist | | | | | At | Signature | + +-------+ + + + | BUN | 12 | 7 - 18 mg/dL | [facility] | | | | | [...] | + + + + + | [facility] | [address] | [place] | [phone] | | [facility] | | [address] | | | - LABORATORY | | | | + + + + + | [facility] | [address] | [place] | | | [facility] | | [address] | | | - LABORATORY | | | | + + + + + documented in this encounter Visit Diagnoses + + | Diagnosis | + + | Cough - Primary | + + documented in this encounter"
--- OUTSIDE RECORDS SUMMARY | ~2019-06-13 | XMS | Encounter Summary ---
Demographics + + + | Address | [address] | | | [place] [address] | + + + | Home Phone | | + + + | Preferred Language | Unknown | + + + | Marital Status | | + + + | Anabaptism Affiliation | CAT | + + + | Race | White | + + + | Ethnic Group | Not or | + + + Author + + + | Author | [facility] | + + + | Organization | [facility] | + + + | Address | Unknown | + + + | Phone | Unavailable | + + + Support + + + + + | Name | Relationship | Address | Phone | + + + + + | Jer Posey | ECON | [address] | | | | [place], [place] | | | | | [address] | | + + + + + Care Team Providers + +------+ + | Care Hydroelectric Plant Mechanical Engineer Name | Role | Phone | + +------+ + | Mike Saucedo MD | PCP | | + +------+ + Reason for Visit +---------+ + | Reason | Comments | +---------+ + | Post Op | | +---------+ + Global Period - Transplant (Routine) +--------+--------+ + + + + | Status | Reason | Specialty | Diagnoses / | Referred By | Referred To | | | | | Procedures | Contact | Contact | +--------+--------+ + + + + | Closed | | Surgery | | Non-[facility] | March, | | | | | | Epic Dept | MD Doug | | | | | | | [address] | | | | | | | [address] | | | | | | | [place], | | | | | | | [place] | | | | | | | [address] | | | | | | | Phone: | | | | | | | [phone] | | | | | | | Fax: | | | | | | | [phone] | +--------+--------+ + + + + Encounter Details +--------+---------+ + + + | Date | Type | Department | Care Team | Description | +--------+---------+ + + + | 11/20/ | Office | Digestive Health | Doug March, | GERD | | 2011 | Visit | [facility] [address] | [address] | (gastroesophageal | | | | [address] | [address] | reflux disease) | | | | Mailcode: Center | [place], [place] | (Primary Dx) | | | | for Health and | [address] | | | | | [facility] | [phone] | | | | | [place], [place] | | | | | | [address] | | | | | | [phone] | | | +--------+---------+ + + + [...] encounter Progress Notes Doug March MD - 11/25/2011 6:58 PM PDTI saw and evaluated the patient. I agree with the findings and the plan of care as documented in the resident s note. Doug March M.D. [facility] ([facility]) Professor and Vice-Inspector Filters of Surgery The [facility] for Pancreatic Disease Research Pancreatic/ HepatoBiliary and Foregut Working Groups Mail Code L223A [address] [place], [place]. [address] email: [email or web address] Ran Dewitt MD - 08/2011 1:55 PM [facility] 10/25: Laparoscopic paraesophageal hernia repair with Parker fundoplication SUBJECTIVE: Doing well Tolerating good po Not on pain meds Normal BMs OBJECTIVE: Ht 165.1 cm (5' 5")( < 3 %ile), Wt 63.05 kg (139 lbs)( < 3 %ile), BP 161/75, Pulse 59, Temp erature 36.6 C (97.8 F), Temperature source Oral, RR 16, BMI 23.13 kg/(m^2). Physical Exam: Gen: well looking. Talks with ease. HEENT: Mucous membranes were pink, acyanotic, and anicteric. Resp: CTAB CVS: RRR Abd: soft, nt. Incisions well healed. Ext: earm ASSESSMENT/PLAN: Shireen Posey is a 71 y.o. female who is s/p Laparoscopic paraesophageal hernia repair with Parker fundoplication from 10/25 Doing well Seen with Dr. March Follow up with Teodora for maintenance of pathway Darrick Kemp.,B.S. Pediatric Dermatologist Department of Surgery [place], [place] [id number] [phone] documented in this encoun ter Plan of Treatment Not on filedocumented as of this encounter Visit Diagnoses + + | Diagnosis | + + | GERD (gastroesophageal reflux disease) - Primary Esophageal reflux | + + documented in this encounter
--- OUTSIDE RECORDS SUMMARY | ~2019-06-13 | XMS | Encounter Summary ---
Demographics + + + | Address | [address] | | | [place] [address] | + + + | Home Phone | | + + + | Preferred Language | Unknown | + + + | Marital Status | | + + + | Mormon Affiliation | 1041 | + + + [...] Phone | + + +---------+ + | Sdae Beckwith | ECON | Unknown | | + + +---------+ + | [place]ie Red) | ECON | Unknown | | | [place] | | | | + + +---------+ + Care Team Providers + +------+ + | Care Bench Machine Operator Name | Role | Phone [...] Dx); Status | | | | [address] | [place] | post hip surgery | | | | [place] | [address] | | | | | [address] | | | | | | [phone] | | | +--------+ + + + [...] | 07/08/ | Office | Cardiology | TamikoNannette, | | | 2018 | Visit | | [address] | | | | | | [place] | | | | | | [address] | | | | | | | | +--------+---------+ + + + | 11/04/ | Office | Pulmonology | Sukhjinder, | | | 2019 | Visit | | Windy Aldrich, | | | | | | [address] | | | | | | [place] | | | | | | [place] [address] | | | | | | [phone] | | | | | | | | +--------+---------+ + + + documented as of this encounter Results XR Hip [...]
--- OUTSIDE RECORDS SUMMARY | ~2019-06-13 | XMS | Encounter Summary ---
Demographics + + + | Address | [address] | | | [place] [address] | + + + | Home Phone | | + + + | Preferred Language | Unknown | + + + | Marital Status | | + + + | Adventism Affiliation | 1041 | + + + | Race | Unknown | + + + | Ethnic Group | Unknown | + + + Author + + + | Author | [facility] | | | and [place] | + + + | Organization | [facility] | | | and [place] | + + + | Address | Unknown | + + + | Phone | Unavailable | + + + Support + + +---------+ + | Name | Relationship | Address | Phone | + + +---------+ + | Sade Post | ECON | Unknown | | + + +---------+ + | Yuri Teofilo) | ECON | Unknown | | | [place] | | | | + + +---------+ + Care Team Providers + +------+ + | Care Fitter Type Bar And Segment Name | Role | Phone | + +------+ + | Mike Saucedo MD | PCP | | + +------+ + Reason for Visit +---------+ + | Reason | Comments | +---------+ + | Post Op | right hemiarthroplasty DOS 07/13/18 | +---------+ + Encounter Details +--------+---------+ + + + | Date | Type | Department | Care Team | Description | +--------+---------+ + + + | 07/23/ | Office | [facility] | Abdi Wallace | S/Anabella orthopedic | | 2019 | Visit | ORTHOPEDIC SURGERY | MD Casandra [address] [place] [address] | surgery, follow-up | | | | [address] [place] [address] | [place] | exam (Primary Dx) | | | | [place], [place] | [address] | | | | | [address] | | | | | | [phone] | | | +--------+---------+ + + + [...] documented as of this encounter Progress Notes Abdi Wallace MD - 07/23/2018 11:45 AM PSTMrsSundar Posey returns for her first post operative visit following her right hip hemiarthroplasty performed on 07/13/18. She notes t hat she is having very minimal pain. She has started to perform housework over the past 2 d ays. Examination: The patient's right hip is examined. The incision is clean and dry and healin g nicely. There is no evidence of infection or drainage. She is walking safely with the ai d of a walker. Advice: We have removed the veda today and have applied Steri-strips and benzoin. The p atient will be allowed to get the right hip wet with tap water. [facility] and will return to our office in approximately 3 weeks for an x-ray o f her right hip at that time. In the meantime she may transition over to a cane as she feel s comfortable and safe. documented in this encounter Plan of Treatment +--------+---------+ + + + | Date | Type | Specialty | Care Team | Description | +--------+---------+ + + + | 07/08/ | Office | Cardiology | Nannette Morrison, | | | 2018 | Visit | | MD [address] | | | | | | [place], [place] | | | | | | [address] | | | | | | | | +--------+---------+ + + + | 11/04/ | Office | Pulmonology | Sukhjinder, | | | 2019 | Visit | | Windy Aldrich, | | | | | | MD [address] | | | | | | [place], | | | | | | [place] [address] | | | | | | [phone] | | | | | | | | +--------+---------+ + + + documented as of this encounter Visit Diagnoses + + | Diagnosis | + + | S/P orthopedic surgery, follow-up exam - Primary Follow-up examination, following | | other surgery | + + documented in this encounter"
--- OUTSIDE RECORDS SUMMARY | ~2019-06-13 | XMS | Encounter Summary ---
Demographics + + + | Address | [address] | | | [place] [address] | + + + | Home Phone | | + + + | Preferred Language | Unknown | + + + | Marital Status | | + + + | Sikhism Affiliation | 1041 | + + + [...] | | + + +---------+ + | [place]ie Red) | ECON | Unknown | | | [place] | | | | + + +---------+ + Care Team Providers + +------+ + | Care Clinical Engineering Director Name | Role | Phone | + +------+ + | iMke Saucedo MD | PCP | | + [...] W | Jenna George MD | bronchitis ([facility]); | | | | [place], | | Gastroesophageal | | | | [place] [address] | | reflux disease with | | | | [phone] | | esophagitis; | | | | | | Bronchiectasis | | | | | | (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); Need | | | | | | [...] disease [facility] Call the [facility] before you pick i t up to make sure they have a box available. You [facility] cherry picker operator [email or web address]. Do the test on room air. 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 Exposure to asbestos: no Exposure to tuberculosis: [...] topically 2 times daily. Misc. Devices (ACAPELLA) [facility] Dx: 494.0 NIGEL: 99 months Use as [...] aortic insufficiency, normal LV systolic function, mild IL, LAE, a nd moderate pulmonary hypertension. Ref. Range 11/10/2014 13:17 Centromere B Autoantibody Latest Range: <1.0 AI <0.2 Chromatin Autoantibody Latest Range: <1.0 AI 0.2 Cyclic Citrullin Peptide Ab Latest Range: <20 Units <16 dsDNA Autoantibody Latest Range: <5 IU/mL 1 SORAYA-1 autoantibody IgG Latest Range: <1.0 AI <0.2 RIBOSOMAL P AB Latest Range: <1.0 AI <0.2 BODY TRIMMER Autoantibody Latest Range: <1.0 AI <0.2 Scleroderma [...] made to ensure accuracy; however, inadvertent computerized criminal profiler errors may be pre sent. documented in [...] [place] | | | | | | [id number] | | | | | | | | +--------+---------+ + + + | 11/04/ | Office | Pulmonology | Sukhjinder, | | | 2019 | Visit | | Windy Aldrich, | | | | | | MD [address] | | | | | | [place] | | | | | | [place] [address] | | | | | | [phone] | | | | | | | [...]
--- OUTSIDE RECORDS SUMMARY | ~2019-06-13 | XMS | Encounter Summary ---
Demographics + + + | Address | [address] | | | [place] [address] | + + + | Home Phone | | + + + | Preferred Language | Unknown | + + + | Marital Status | | + + + | Yarsani Affiliation | [id number] | + + + | Race | Unknown | + + + | Ethnic Group | Unknown | + + + Author + + + | Author | [facility] | | | and [place] | + + + | Organization | [facility] [...] Team Providers + +------+ + | Care Wedding Photographer Name | Role | Phone | + [...] | Specialty | Physical | Diagnoses | [facility], | | | | Services | Therapy | Chronic | Jerald Suarez MD | | | | Required | | midline low | [address] | | | | | | back pain | [address] | | | | | | with | [place], | | | | | | right-sided | [place] [address] | | | | | | sciatica | Phone: | | | | | | Lumbar | [phone] | | | | | | radiculopath | Fax: | | | | | | y Scoliosis | [phone] | | | | | | of | | | | | | | thoracolumba | | | | | | | r spine, | | | | | | | unspecified | | | | | | | scoliosis | | | | | | | type | | | +--------+ + + + + + Reason for Visit + + + | Reason | Comments | + + + | Weakness | right leg, improving | + + + Encounter Details +--------+---------+ + + + | Date | Type | Department | Care Team | Description | +--------+---------+ + + + | 03/22/ | Office | [facility] | Jerald Montano, | Chronic midline low | | 2017 | Visit | PHYSIATRY [address] | [address] | back pain with | | | | [address], | [place], [place] | right-sided sciatica | | | | [place] [address] | [id number] | (Primary Dx); | | | | [phone] | | Lumbar | | | | | | radiculopathy; | | | | | | Scoliosis of | | | | | | thoracolumbar spine, | | | | | | unspecified | | | | | | scoliosis type | +--------+---------+ + + + Social History [...] | Blood Pressure | 150/68 | 03/22/2017 10:33 AM | | | | | PDT | | + + + + + | Pulse | 79 | 03/22/2017 10:33 AM | | | | | PDT [...] Weight | 61.7 kg (136 lb) | 03/22/2017 10:33 AM | | | | | PDT | | + + + + + | Height | 165.1 cm (5' 5") | 03/22/2017 10:33 AM | | | | | PDT | | + + + + + | Body Mass Index | 22.63 | 03/22/2017 10:33 AM | | | | | PDT | | + + + + + documented in this encounter Patient Instructions Patient Instructions Stephanie Fields RN - 03/22/2017 10:00 AM PDTIf please be evaluated A SAP in the emergency room if you have any severe weakness or loss of bowel or bladder. Pleas e be evaluated for any worsening pain or weakness. Physical therapy has been prescribed. Please participate in physical therapy. If you have not be contacted for an appointment with physical therapy within one week, please contact [facility]. Once you have completed physical therapy please continue the home exercise progr am as outline by physical therapy, indefinitely. documented in this encounter Progress Notes Jerald Montano MD - 03/22/2017 10:00 AM PDTFormatting of this note might be different fro m the original. CHIEF COMPLAINT: Chief Complaint Patient presents with Weakness right leg, improving HISTORY OF PRESENT ILLNESS: Shireen Posey is a 76 y.o. female being seen today in follow-up for complaints o f right leg weakness. Shireen Posey reports she started noticing increasing weak ness approximately 1-2 weeks ago. She reports today that weakness to the right leg is impro ving. She reports that she would like to discuss orders for physical therapy. Shireen Posey reports having back, worse to the right. Shireen Posey was last seen on 09/05/2016 to complete a lower extremity nerve conduction study. She was advised to retur n to the office in the future for reevaluation if she noticed worsening symptoms. Today Shireen Posey reports that she started noticing worsening right leg weakne ss after a three day stretch of exercising at the gym. She reports she was doing exercises i n the hopes of strengthening her knee, she was completing exercises as outlined by previousl y completed Physical therapy. She reports that she feels like she over did it. Overall Shireen Posey reports that She symptoms are improving. She rates the pa in as mild. describes the pain as rare, intermittent dull aching. Her symptoms worsen wit h standing in place. Her symptoms improve with change of position or rest. Shireen Posey does describe paresthesia to toes of bilateral feet. She does not report weakne ss of the legs, reports right leg weakness has improved since scheduling follow up. She wasserman s not have bowel and bladder dysfunction. She does not have saddle anesthesia. She reports having cramping and "power horse's" when lying down. She reports that due to her lung he alth and coughing she sleep in a recliner. Treatments for these complaints have included Physical Therapy for her knees. Shireen Posey is not currently taking any medication for treatment of her pain. Shireen Posey's medications, allergies, past medical, surgical, social and famil y histories were reviewed and updated as appropriate. CURRENT MEDICATIONS: Current Outpatient Prescriptions Medication Sig Dispense Refill Calcium Carb-Cholecalciferol (CALCIUM 1000 + D PO) Take 1 tablet by mouth Daily. domperidone 10 mg capsule Take 10 mg by mouth 4 times daily (before meals and nightly). metroNIDAZOLE (METROCREAM) 0.75 % cream Apply 0.75 % topically Twice daily as needed. Misc. Devices (ACAPELLA) [employer] Dx: 494.0 NIGEL: 99 months Use as directed twice daily. 1 e ach 1 omeprazole (PRILOSEC) 20 mg capsule Take 20 mg by mouth every morning (before breakfast ). SPIRIVA HANDIHALER 18 MCG inhalation capsule INHALE CONTENT OF ONE CAPSULE BY MOUTH ONC E DAILY 30 capsule 5 No current facility-administered medications for this visit. ALLERGIES: No Known Allergies REVIEW OF SYSTEMS: Review of Systems Constitutional: Positive for chills. Negative for diaphoresis, fever, malaise/fatigue and w eight loss. HENT: Positive for congestion. Negative for ear discharge, ear pain, hearing loss, noseblee ds, sore throat and tinnitus. Eyes: Negative for blurred vision, double vision, photophobia, pain, discharge and redness. Glasses, cataracts Respiratory: Positive for cough and sputum production. Negative for hemoptysis, shortness o f breath, wheezing and stridor. Cardiovascular: Positive for leg swelling. Negative for chest pain, palpitations, orthopnea , claudication and PND. Gastrointestinal: Negative for abdominal pain, blood in stool, constipation, diarrhea, hear tburn, melena, nausea and vomiting. Genitourinary: Negative for dysuria, flank pain, frequency, hematuria and urgency. Musculoskeletal: Positive for back pain and joint pain. Negative for falls, myalgias and ne ck pain. Skin: Negative for itching and rash. Neurological: Positive for tingling. Negative for dizziness, tremors, sensory change, speec h change, focal weakness, seizures, loss of consciousness, weakness and headaches. Endo/Heme/Allergies: Positive for environmental allergies. Negative for polydipsia. Does no t bruise/bleed easily. Psychiatric/Behavioral: Negative for depression, hallucinations, memory loss, substance abu se and suicidal ideas. The patient is not nervous/anxious and does not have insomnia. PHYSICAL EXAMINATION: Blood pressure 150/68, pulse 79, height 1.651 m (5' 5"), weight 61.7 kg (136 lb), not curre ntly . There is no height or weight on file to calculate BMI. Vitals: 03/22/17 1033 BP: 150/68 Pulse: 79 PainSc: 0 - No pain GENERAL: The patient is well developed and well nourished. She does not appear uncomfortab le when seated. HEENT: Normocephalic and atraumatic. Normal sclerae without icterus. NECK (ANTERIOR): There is no apparent cervical lymphadenopathy or thyromegaly. PULMONARY: The patient is in no acute respiratory distress with unlabored respirations. CARDIOVASCULAR: Regular rate and rhythm. There is not lower extremity edema. ABDOMEN: Non-distended. SKIN: Limited skin exam shows no significant rashes or lesions. There are not scars in the lumbar region. NEUROLOGIC: The patient is awake, alert, and oriented. She follows simple and complex commands. Her speech is fluent. She comprehends speech well. She has no apparent deficits with short or hand scraper memory. The cranial nerves appear grossly intact. Sensory exam: intact sensation to light touch in the upper extremities. MOTOR EXAM: (5 IS NORMAL) * Indicates pain limited MUSCLE/ MOVEMENT: RIGHT LEFT Hip Flexion 5 5 Hip Extension 5 5 Knee Flexion 5 5 Knee Extension 5 5 Extensor Hallicus Longus 4+ 5 Ankle Dorsiflexion 5 5 Plantarflexion 4+ 5 REFLEX: RIGHT LEFT PATELLAR 2+ 2+ ACHILLES 1+ 1+ MUSCULOSKELETAL : Scoliotic curvature noted to spine, dextroscoliosis of lumbar spine. The patient localized the majority of the pain to the approximate levels of the L5-S1 regio n. DATABASE: Lumbar MRI from 01/2016 was personally reviewed by me. I concur with findings as reported by the radiologist. The MRI demonstrates multilevel neural foraminal narrowing. Moderate a t most levels, but there is severe neural foraminal narrowing at right L5-S1. NCS/EMG completed 09/05/16 demonstrated non-focal reduced amplitude of the right tibial ner ve which is consistent with lumbar radiculopathy or other proximal nerve injury and non-foca l reduced amplitude of the left peroneral nerve, which is consistent with lumbar radiculopat hy or other proximal nerve injury. Needle EMG demonstrates right L5 radiculopathy. ASSESSMENT: 1. Chronic midline low back pain with right-sided sciatica 2. Lumbar radiculopathy 3. Scoliosis of thoracolumbar spine, unspecified scoliosis type PLAN: 1. Today we reviewed previously discussed nerve irritation noted on lumbar MRI completed . We discussed symptoms of lumbar radiculopathy. We discussed that her previously compl eted NCS/EMG demonstrated findings consistent with right L5 radiculopathy 2. We discussed that her increase in weakness may have been a result of an acute increase i n irritation to her nerves. We discussed possible conservative treatments including physical therapy, use of medication, and steroid injections. 3. Today we discussed the goal of physical therapy. We discusses core strengthening than ma y help to mechanically open up space around the area that her nerves travel. We discussed th e importance of completing therapy, learning the exercises, and thereafter continuing a brent y routine of at home exercises indefinitely to maintain core strengthening. Shireen dash is encouraged to maintain physical activity. We discussed that inactivity may inc rease rate of degeneration when arthritis is involved. We discussed that activity maintain s function, strength, and mobility. Shireen Posey is encouraged to maintain gra dually increasing levels of activity. Shireen Posey will participate in a formal course of physical therapy at the [facility] for her lumbar radiculopathy. 4. Shireen Posey was advised to avoid activities that may aggravate her back and cause "flare-ups", she was advised to use safe lifting techniques. Shireen Posey was advised to return to the clinic for reevaluation at an earlier time if She was having you have weakness in the legs that is getting slowly worse over time. Advised to return to the clinic if she was having increasing pain. she was advised to seek emergent medical atte ntion if she were to develop profound leg weakness, or if she developed bowel and/or bladder incontinence. 5. Surgical intervention was discussed today with Shireen Posey. We discussed th at surgical treatment is usually considered last resort, only if she fails improvement with conservative treatments . We discussed that surgical treatment is recommended if weakness is affecting function. We discussed that surgical treatment is recommended if there are ch anges to bowel/bladder function. We discussed that surgical treatment may be considered if there is progressive weakness. Shireen Posey was advised of possible surgical options if needed in the future. 6. Shireen Posey will be scheduled to return to the clinic in 3-4 months to revi ew response to physical therapy. Will anticipate continued review of her strength to monitor for any changes. I spent 30 minutes in visit with Shireen Posey today with the majority of time s pent counselling the patient on her diagnosis, options for her care, and coordinating her ca re. I, Jerald Montano MD personally performed the services described in this documentation, as scribed by in my presence, Stephanie Fields RN and are both accurate and complete. Jerald Montano MD - 03/22/2017 documented in this en counter Plan of Treatment +--------+---------+ + + + | Date | Type | Specialty | Care Team | Description | +--------+---------+ + + + | 07/08/ | Office | Cardiology | Nannette Morrison, | | | 2018 | Visit | | MD Angela HARDEN | | | | | | [place] | | | | | | [address] | | | | | | | | +--------+---------+ + + + | 11/04/ | Office | Pulmonology | Sukhjinder, | | | 2019 | Visit | | Windy Aldrich, | | | | | | [address] | | | | | | [place], | | | | | | [place] [address] | | | | | | [phone] | | | | | | | | +--------+---------+ + + + + + +--------+ + + | Name | Type | Priori | Associated Diagnoses | Order Schedule | | | | ty | | | + + +--------+ + + | Physical Therapy - | Outpatient | Routin | Chronic midline | Ordered: 03/22/2017 | | Ambulatory Referral | Referral | e | low back pain with | | | | | | right-sided sciatica | | | | | | Lumbar | | | | | | radiculopathy | | | | | | Scoliosis of | | | | | | thoracolumbar spine, | | | | | | unspecified | | | | | | scoliosis type | | + + +--------+ + + documented as of this encounter Visit Diagnoses + + | Diagnosis | + + | Chronic midline low back pain with right-sided sciatica - Primary | + + | Lumbar radiculopathy Thoracic or lumbosacral neuritis or radiculitis, unspecified | + + | Scoliosis of thoracolumbar spine, unspecified scoliosis type | + + documented in this encounter
--- OUTSIDE RECORDS SUMMARY | ~2019-06-13 | XMS | Encounter Summary ---
Demographics + + + | Address | [address] | | | [place] [address] | + + + | Home Phone | | + + + | Preferred Language | Unknown | + + + | Marital Status | | + + + | Mu-Ism Affiliation | CAT | + + + | Race | White | + + + | Ethnic Group | Not or | + + + Author + + + | Author | [facility] | + + + | Organization | [facility] | + + + | Address | Unknown | + + + | Phone | Unavailable | + + + Support + + + + + | Name | Relationship | Address | Phone | + + + + + | Jer Posey | ECON | [address] | | | | [place], [place] | | | | | [address] | | + + + + + Care Team Providers + +------+ + | Care Deputy Clerk Of Court Name | Role | Phone | + +------+ + | Mike Saucedo MD | PCP | | + +------+ + Encounter Details +--------+ + + + + | Date | Type | Department | Care Team | Description | +--------+ + + + + | 09/23/ | Telephone | [facility] | Doug March, | | | 2011 | | [place] [facility] [address] | [address] | | | | | [address] | [facility] | | | | | Mailcode: Center | [place], [place] | | | | | [facility] and | [address] | | | | | [facility] [address] | [phone] | | | | | [place], [place] | | | | | | [address] | | | | | | [phone] | | | +--------+ + + + [...]
--- OUTSIDE RECORDS SUMMARY | ~2019-06-13 | XMS | Encounter Summary ---
Demographics + + + | Address | [address] | | | [place] [address] | + + + | Home Phone | | + + + | Preferred Language | Unknown | + + + | Marital Status | | + + + | Druze Affiliation | 1041 | + + + [...] Team Providers + +------+ + | Care Autos Disassembler Name | Role | Phone | + +------+ + | Mike Saucedo MD | PCP | | + +------+ + Encounter Details +--------+ + + + + | Date | Type | Department | Care Team | Description | +--------+ + + + + | 02/28/ | Orders Only | [facility] | Narayan Talbert | | | 2014 | | [place] | MD [address] | | | | | [address] | [address] | | | | | [address] [place], [place] | [place] [address] | | | | | [address] | [phone] | | | | | [phone] | | | +--------+ + + + [...] | | | | | | [place] [facility] [place] | | | | | | [address] | | | | | | | | +--------+---------+ + + + | 11/04/ | Office | Pulmonology | Sukhjinder, | | | 2019 | Visit | | Windy Aldrich, | | | | | | MD [address] | | | | | | [place], | | | | | | [place] [address] | | | | | | [phone] | | | | | | | | +--------+---------+ + + + documented as of this encounter Procedures + +--------+ + + + | Procedure Name | Priori | Date/Time | Associated Diagnosis | Comments | | | ty | | | | + +--------+ + + + | VAS AORTA ILIAC | Routin | 02/28/2015 | | Results for this | | DUPLEX COMPLETE | e | 3:49 PM | | procedure are in the | | | | PDT | | results section. | + +--------+ + + + documented in this encounter Results VAS Aorta Iliac Duplex Complete (02/28/2015 3:49 PM PDT) + + | Specimen | + + | | + + + + + | Impressions | Performed At | + + + | 1. The abdominal aorta is very minimally ectatic with | | | atherosclerotic changes but no evidence of any aneurysmal dilation | | | or significant stenosis. 2. Normal ankle brachial index 0.92 on | | | right. 3. Left ankle brachial index 0.88 suggests mild degree of | | | obstruction. 4. Mild disease of the right common iliac artery. 5. | | | Mild non-hemodynamically significant stenosis in the right common | | | femoral artery. 6. Mild disease of the left common iliac artery. 7. | | | No direct evidence of significant disease found to explain the | | | pressure difference between the arms and legs. | | + + + + + + | Narrative | Performed At | + + + | Patient Name: SHIREEN MARTINEZ Date of : 1940 | | | Performing Physician: Cindy Fernandez MD, | | | FACC | | | INDICATIONS PAD/claudication CONCLUSIONS | | | 1. The abdominal aorta is very minimally ectatic with | | | atherosclerotic changes but no evidence of any aneurysmal dilation | | | or significant stenosis. 2. Normal ankle brachial index 0.92 on | | | right. 3. Left ankle brachial index 0.88 suggests mild degree of | | | obstruction. 4. Mild disease of the right common iliac artery. 5. | | | Mild non-hemodynamically significant stenosis in the right common | | | femoral artery. 6. Mild disease of the left common iliac artery. 7. | | | No direct evidence of significant disease found to explain the | | | pressure difference between the arms and legs. FINDINGS -------- | | | Study quality: This was a technically adequate study. Aorta: The | | | abdominal aorta is very minimally ectatic with atherosclerotic changes | | | but no evidence of any aneurysmal dilation or significant stenosis. | | | TORSTEN RIGHT: Normal ankle brachial index 0.92 on right. TORSTEN LEFT: | | | Left ankle brachial index 0.88 suggests mild degree of obstruction. | | | Right Illiac: The right common iliac artery is patent with 1-49% | | | stenosis. Right Illiac: The right external iliac artery is patent | | | with no evidence of stenosis. Right COLD SAW OPERATOR: The right common femoral | | | artery is patent with 1-49% stenosis. Right PFA: Normal right | | | profunda artery flow. Right SFA: The right superficial femoral artery | | | is patent with minimal atherosclerotic changes. Right POP: Normal | | | right popliteal artery flow. Right trifurcation vessels: Normal right | | | trifurcation flow. No direct evidence of significant stenosis. | | | Left Illiac: The left common iliac artery is patent with 1-49% | | | stenosis. Left Illiac: The left external iliac artery is patent with | | | no evidence of stenosis. Left COLD SAW OPERATOR: The left common femoral artery | | | is patent with 1-49% stenosis. Left PFA: The left profunda femoris | | | artery demonstrates 1-49% stenosis. Left SFA: The left superficial | | | femoral artery is patent with minimal atherosclerotic changes. Left | | | Popliteal: Normal left superficial femoral artery flow. Left | | | trifurcation vessels: Normal left trifurcation flow with no direct | | | evidence of significant stenosis. MEASUREMENTS ALFA | | | AC: 60 deg ALFA AC: 60 deg ALFA AC: 42 deg ALFA AC: 60 | | | deg ALFA PS: 104.91 cm/s ALFA PS: 137.13 cm/s ALFA PS: 94.09 | | | cm/s ALFA PS: 158.21 cm/s COLD SAW OPERATOR AC: 60 deg COLD SAW OPERATOR AC: 53 deg | | | COLD SAW OPERATOR PS: 203.15 cm/s COLD SAW OPERATOR PS: 154.80 cm/s CAMI PS: 161.54 cm/s | | | CAMI PS: 150.75 cm/s CAMI PS: 137.38 cm/s CAMI PS: 133.42 | | | cm/s DFA PS: 138.77 cm/s DFA PS: 65.92 cm/s EIA AC: 56 deg | | | EIA AC: 50 deg EIA PS: 230.65 cm/s EIA PS: 184.41 cm/s | | | EIA PS: 211.36 cm/s EIA PS: 172.75 cm/s Peron AC: 60 deg | | | Peron AC: 60 deg Peron PS: 95.46 cm/s Peron PS: 104.70 cm/s | | | Pop AC: 33 deg Pop AC: 45 deg Pop PS: 85.29 cm/s Pop PS: | | | 136.47 cm/s Pop PS: 117.68 cm/s Pop PS: 87.39 cm/s VALET CASHIER | | | AC: 60 deg VALET CASHIER AC: 60 deg VALET CASHIER PS: 184.73 cm/s VALET CASHIER PS: | | | 139.56 cm/s SFA PS: 105.43 cm/s SFA PS: 117.97 cm/s SFA PS: | | | 131.03 cm/s SFA PS: 165.14 cm/s SFA PS: 104.10 cm/s SFA | | | PS: 168.20 cm/s AO prox PS: 87.01 cm/s AO dist: 78.45 cm/s | | | AO mid PS: 53.66 cm/s AO mid-dist PS: 58.06 cm/s RCIA PS: | | | 132.77 cm/s AO dist: 1.50 cm Lt. CAMI: 0.99 cm AO prox: | | | 1.93 cm Rt. CAMI: 0.91 cm AO mid-dist: 1.96 cm AO mid: 2.19 | | | cm Case Making Machine Operator: GLORIA Authenticated by: Cindy Fernandez MD, [facility] | | | Report Date/Time: -- [id number] | | + + + + + | Procedure Note | + + | Jose, Rad Conversion - 03/12/2019 11:02 PM PDT Patient Name: Burton MARTINEZ | | of : 1940 Performing Physician: Cindy Fernandez MD, | | FACC INDICATIONS | | -PAD/claudication CONCLUSIONS 1. The abdominal aorta is very minimally ectatic | | with atherosclerotic changes but no evidence of any aneurysmal dilation or significant | | stenosis.2. Normal ankle brachial index 0.92 on right.3. Left ankle brachial index | | 0.88 suggests mild degree of obstruction.4. Mild disease of the right common iliac | | artery.5. Mild non-hemodynamically significant stenosis in the right common femoral | | artery.6. Mild disease of the left common iliac artery. 7. No direct evidence of | | significant disease found to explain the pressure difference between the arms and legs. | | FINDINGS--------Study quality: This was a technically adequate study.Aorta: The | | abdominal aorta is very minimally ectatic with atherosclerotic changes but no evidence | | of any aneurysmal dilation or significant stenosis.TORSTEN RIGHT: Normal ankle brachial | | index 0.92 on right.TORSTEN LEFT: Left ankle brachial index 0.88 suggests mild degree of | | obstruction. Right Illiac: The right common iliac artery is patent with 1-49% stenosis. | | Right Illiac: The right external iliac artery is patent with no evidence of | | stenosis.Right COLD SAW OPERATOR: The right common femoral artery is patent with 1-49% stenosis.Right | | PFA: Normal right profunda artery flow.Right SFA: The right superficial femoral artery | | is patent with minimal atherosclerotic changes.Right POP: Normal right popliteal artery | | flow.Right trifurcation vessels: Normal right trifurcation flow. No direct evidence of | | significant stenosis. Left Illiac: The left common iliac artery is patent with 1-49% | | stenosis. Left Illiac: The left external iliac artery is patent with no evidence of | | stenosis. Left COLD SAW OPERATOR: The left common femoral artery is patent with 1-49% stenosis.Left | | PFA: The left profunda femoris artery demonstrates 1-49% stenosis.Left SFA: The left | | superficial femoral artery is patent with minimal atherosclerotic changes.Left | | Popliteal: Normal left superficial femoral artery flow.Left trifurcation vessels: Normal | | left trifurcation flow with no direct evidence of significant stenosis. | | MEASUREMENTS ALFA AC: 60 degATA AC: 60 degATA AC: 42 degATA AC: 60 | | degATA PS: 104.91 cm/sATA PS: 137.13 cm/sATA PS: 94.09 cm/sATA PS: 158.21 | | cm/sCFA AC: 60 degCFA AC: 53 degCFA PS: 203.15 cm/sCFA PS: 154.80 cm/sCIA PS: | | 161.54 cm/sCIA PS: 150.75 cm/sCIA PS: 137.38 cm/sCIA PS: 133.42 cm/sDFA PS: | | 138.77 cm/sDFA PS: 65.92 cm/sEIA AC: 56 degEIA AC: 50 degEIA PS: 230.65 cm/sEIA | | PS: 184.41 cm/sEIA PS: 211.36 cm/sEIA PS: 172.75 cm/sPeron AC: 60 degPeron AC: | | 60 degPeron PS: 95.46 cm/sPeron PS: 104.70 cm/sPop AC: 33 degPop AC: 45 degPop | | PS: 85.29 cm/sPop PS: 136.47 cm/sPop PS: 117.68 cm/sPop PS: 87.39 cm/sPTA AC: | | 60 degPTA AC: 60 degPTA PS: 184.73 cm/sPTA PS: 139.56 cm/sSFA PS: 105.43 cm/sSFA | | PS: 117.97 cm/sSFA PS: 131.03 cm/sSFA PS: 165.14 cm/sSFA PS: 104.10 cm/sSFA PS: | | 168.20 cm/Alcira prox PS: 87.01 cm/Alcira dist: 78.45 cm/Alcira mid PS: 53.66 cm/Alcira | | mid-dist PS: 58.06 cm/sRCIA PS: 132.77 cm/Alcira dist: 1.50 cmLt. CAMI: 0.99 cmAO | | prox: 1.93 cmRt. CAMI: 0.91 cmAO mid-dist: 1.96 cmAO mid: 2.19 cm Case Making Machine Operator: | | DHAuthenticated by: Cindy Fernandez MD, FACCReport Date/Time: -- | | [id number] IMPRESSION: 1. The abdominal aorta is very minimally ectatic | | with atherosclerotic changes but no evidence of any aneurysmal dilation or significant | | stenosis.2. Normal ankle brachial index 0.92 on right.3. Left ankle brachial index | | 0.88 suggests mild degree of obstruction.4. Mild disease of the right common iliac | | artery.5. Mild non-hemodynamically significant stenosis in the right common femoral | | artery.6. Mild disease of the left common iliac artery. 7. No direct evidence of | | significant disease found to explain the pressure difference between the arms and legs. | |ALFA PS: 104.91 cm/s | |ALFA PS: 137.13 cm/s | |ALFA PS: 94.09 cm/s | |ALFA PS: 158.21 cm/s | |COLD SAW OPERATOR AC: 60 deg | |COLD SAW OPERATOR AC: 53 deg | |COLD SAW OPERATOR PS: 203.15 cm/s | |COLD SAW OPERATOR PS: 154.80 cm/s | |CAMI PS: 161.54 cm/s | |CAMI PS: 150.75 cm/s | |CAMI PS: 137.38 cm/s | |CAMI PS: 133.42 cm/s | |DFA PS: 138.77 cm/s | |DFA PS: 65.92 cm/s | |EIA AC: 56 deg | |EIA AC: 50 deg | |EIA PS: 230.65 cm/s | |EIA PS: 184.41 cm/s | |EIA PS: 211.36 cm/s | |EIA PS: 172.75 cm/s | |Peron AC: 60 deg | |Peron AC: 60 deg | |Peron PS: 95.46 cm/s | |Peron PS: 104.70 cm/s | |Pop AC: 33 deg | |Pop AC: 45 deg | |Pop PS: 85.29 cm/s | |Pop PS: 136.47 cm/s | |Pop PS: 117.68 cm/s | |Pop PS: 87.39 cm/s | |VALET CASHIER AC: 60 deg | |VALET CASHIER AC: 60 deg | |VALET CASHIER PS: 184.73 cm/s | |VALET CASHIER PS: 139.56 cm/s | |SFA PS: 105.43 cm/s | |SFA PS: 117.97 cm/s | |SFA PS: 131.03 cm/s | |SFA PS: 165.14 cm/s | |SFA PS: 104.10 cm/s | |SFA PS: 168.20 cm/s | |AO prox PS: 87.01 cm/s | |AO dist: 78.45 cm/s | |AO mid PS: 53.66 cm/s | |AO mid-dist PS: 58.06 cm/s | |RCIA PS: 132.77 cm/s | |AO dist: 1.50 cm | |Lt. CAMI: 0.99 cm | |AO prox: 1.93 cm | |Rt. CAMI: 0.91 cm | |AO mid-dist: 1.96 cm | |AO mid: 2.19 cm | | | |Case Making Machine Operator: GLORIA | |Authenticated by: Cindy Fernandez MD, [facility] | |Report Date/Time: -- [id number] | | | |IMPRESSION: | |1. The abdominal aorta is very minimally ectatic with atherosclerotic changes but no evide nce of any aneurysmal dilation or significant stenosis. | |2. Normal ankle brachial index 0.92 on right. | |3. Left ankle brachial index 0.88 suggests mild degree of obstruction. | |4. Mild disease of the right common iliac artery. | |5. Mild non-hemodynamically significant stenosis in the right common femoral artery. | |6. Mild disease of the left common iliac artery. 7. No direct evidence of significant disea se found to explain the pressure difference between the arms and legs. | + + documented in this encounter Visit Diagnoses Not on filedocumented in this encounter"
--- OUTSIDE RECORDS SUMMARY | ~2019-06-13 | XMS | Encounter Summary ---
Demographics + + + | Address | [address] | | | [place] [address] | + + + | Home Phone | | + + + | Preferred Language | Unknown | + + + | Marital Status | | + + + | Yazdanism Affiliation | 1041 | + + + | Race | Unknown | + + + | Ethnic Group | Unknown | + + + Author + + + | Author | [facility] | | | and [place] | + + + | Organization | [facility] | | | [...] Team Providers + +------+ + | Care Rotary Surface Grinder Name | Role | Phone | + +------+ + | Mike Saucedo MD | PCP | | + +------+ + Encounter Details +--------+ + + + + | Date | Type | Department | Care Team | Description | +--------+ + + + + | 09/14/ | Orders Only | [facility] | Narayan Talbert | | | 2015 | | CARDIOLOGY [place] | MD [address] | | | | | [address] | [address] | | | | | [place], [place] | [place] [address] | | | | | [address] | [phone] | | | | | [phone] | | | +--------+ + + + [...] [place] | | | | | | [address] | | | | | | | | +--------+---------+ + + + | 11/04/ | Office | Pulmonology | Sukhjinder, | | | 2019 | Visit | | Windy Aldrich | | | | | | MD [address] | | | | | | [place], | | | | | | [place] [address] | | | | | | [phone] | | | | | | | | +--------+---------+ + + + documented as of this encounter Procedures + +--------+ + + + | Procedure Name | Priori | Date/Time | Associated Diagnosis | Comments | | | ty | | | | + +--------+ + + + | BASIC METABOLIC | Routin | 09/14/2015 | | Results for this | | PANEL | e | 10:09 AM | | procedure are in the | | | | PST | | results section. | + +--------+ + + + documented in this encounter Results Basic Metabolic Panel (09/14/2015 10:09 AM PST) + + + + + + | Component | Value | Ref Range | Performed | Pathologist | | | | | At | Signature | + + + + + + | Glucose, | 75 | 70 - 100 mg/dL | EXTERNAL | | | Fasting | | | LAB | | + + + + + + | BUN | 16 | 6 - 23 mg/dL | EXTERNAL | | | | | | LAB | | + + + + + + | Creatinine | 0.64 (A) | 0.70 - 1.18 | EXTERNAL | | | | | mg/dL | LAB | | + + + + + + | BUN/Creatin | 25.0 | 6.0 - 28.6 | EXTERNAL | | | ine Ratio | | | LAB | | + + + + + + | Calcium | 9.7 | 8.4 - 10.2 | EXTERNAL | | | | | mg/dL | LAB | | + + + + + + | Na | 142 | 132 - 143 | EXTERNAL | | | | | mmol/L | LAB | | + + + + + + | K | 4.2 | 3.6 - 5.1 | EXTERNAL | | | | | mmol/L | LAB | | + + + + + + | Cl | 104 | 95 - 112 mmol/L | EXTERNAL | | | | | | LAB | | + + + + + + | CO2 | 28 | 19 - 31 mmol/L | EXTERNAL | | | | | | LAB | | + + + + + + | Anion Gap | 14.2 | 7 - 21 mmol/L | EXTERNAL | | | | | | LAB | | + + + + + + | Estimated | 90 | 60 mg/dL | EXTERNAL | | [...]
--- OUTSIDE RECORDS SUMMARY | ~2019-06-13 | XMS | Encounter Summary ---
Demographics + + + | Address | [address] | | | [place] [address] | + + + | Home Phone | | + + + | Preferred Language | Unknown | + + + | Marital Status | | + + + | Cheondoism Affiliation | 1041 | + + + | Race | Unknown | + + + | Ethnic Group | Unknown | + + + Author + + + | Author | [facility] | | | and [place] | + + + | Organization | [facility] | | | and [place] | + + + | Address | Unknown | + + + | Phone | Unavailable | + + + Support + + +---------+ + | Name | Relationship | Address | Phone | + + +---------+ + | Sade Beckwith | ECON | Unknown | | + + +---------+ + | Tulsagracie Red) | ECON | Unknown | | | Kalpesh | | | | + + +---------+ + Care Team Providers + +------+ + | Care [employer] Principal Name | Role | Phone | + [...] Closed | | Radiology | Diagnoses | Sukhjinder, | [address] | | | | | Pulmonary | Windy | [address] | | | | | nodule | MD Elinor | [place], | | | | | Procedures | [address] | [place] [address] | | | | | CT Chest wo | [address] | Phone: | | | | | Contrast | [place] | [phone] | | | | | | [place], [place] | Fax: | | | | | | [address] | [phone] | | | | | | Phone: | | | | | | | [phone] | | | | | | | Fax: | | | | | | | [phone] | | +--------+--------+ + + + + Reason for Visit Auth/Cert +--------+--------+ + + + + | Status | Reason | Specialty | Diagnoses / | Referred By | Referred To | | | | | Procedures | Contact | Contact | +--------+--------+ + + + + | | | | | | | +--------+--------+ + + + + Encounter Details +--------+ + + + + | Date | Type | Department | Care Team | Description | +--------+ + + + + | 11/27/ | Hospital | [facility] | Sukhjinder, | Pulmonary nodule | | 2017 | Encounter | [facility] [address] | Windy [place], | | | | | [place], | [address] | | | | | [place] [address] | [place], | | | | | [phone] | [place] [address] | | | | | | [phone] | | | | | | | [...] 99 | 1 each | 1 | //20 | | | (ACAPELLA) MISC | months [...] [place] | | | | | | [address] | | | | | | | | +--------+---------+ + + + | 11/04/ | Office | Pulmonology | Sukhjinder, | | | 2019 | Visit | | Windy Aldrich, | | | | | | MD [address] | | | | | | [place] | | | | | | [place] [address] | | | | | | [phone] | | | | | | | | +--------+---------+ + + + documented as of this encounter Procedures + +--------+ + + + | Procedure Name | Priori | Date/Time | Associated Diagnosis | Comments | | | ty | | | | + +--------+ + + + | CT CHEST WO CONTRAST | Routin | 11/27/2016 | Pulmonary nodule | Results for this | | | e | 10:20 AM | | procedure are in the | | | | PDT | | results section. | + +--------+ + + + documented in this encounter Results CT Chest wo Contrast (11/27/2016 10:20 AM PDT) + + | Specimen | + + | | + + + + + | Narrative | Performed At | + + + | TECHNIQUE: Noncontrast axial CT imaging was obtained through the | [facility] | | chest with coronal and sagittal reformats. Axial MIP images were | | | acquired. CLINICAL INFORMATION: Pulmonary nodule COMPARISON: | | | CT chest dated 10/25/2015, 11/10/2014, and 05/17/2014. FINDINGS: | | | BONES: No osteoblastic or osteolytic lesion. Moderate sigmoid | | | curvature of the thoracic and lumbar spine. No acute osseous | | | abnormality. CHEST: Chest Wall: Unchanged calcifications at the | | | right anterolateral chest wall. Known postoperative changes at the | | | upper right breast. Mediastinum and star: No lymphadenopathy. | | | Heart and pericardium: Heart size is normal. No pericardial effusion. | | | Prominent annular mitral calcifications. Vessels: Prominent | | | vascular calcifications are noted at the coronary arteries. Tortuous | | | aorta. Large airways: Mild cylindrical bronchiectasis and mild to | | | moderate bronchial wall thickening and the inferior right lower | | | lobe. Minimal cylindrical bronchiectasis also likely at the left | | | lower lobe. Pleura: No pleural effusion or pneumothorax. Interval | | | resolution of the right pleural effusion. Lungs: Diffuse | | | centrilobular emphysematous changes. Right upper lobe: Unchanged 2 mm | | | nodule, image 44, best demonstrated on prior imaging dated | | | 11/10/2014. Right middle lobe: No nodule or mass lesion. Right lower | | | lobe: Posterior inferior airspace disease, likely atelectasis and | | | scarring. Left upper lobe: Unchanged 6 mm left apical nodule, image | | | 10. Unchanged apical fibronodular scarring. Unchanged left apical 3 | | | mm ground glass nodularity. Unchanged 3 mm nodule, image 33. Small | | | focus of peripheral scarring/atelectasis, image 55, new from prior. | | | Left lower lobe: No nodule or mass lesion. Minimal to mild basilar | | | dependent atelectasis. UPPER ABDOMEN: No concerning abnormality. | | | IMPRESSION - Unchanged appearance of multiple pulmonary | | | nodules, the largest is at the left apex and measures 6 mm. No new | | | pulmonary nodules. Centrilobular emphysematous changes. Bilateral | | | bronchiectasis and inferior basilar scarring/fibrosis, most prominent | | | at the right lung base. Lung Rads assessment category: 2, | | | benign appearance. Dictated and Signed by: Maksim Butcher MD | | | Electronically signed: 11/27/2016 11:36 AM | | + + + + + | Procedure Note | + + | Jose, Rad Results In - 11/27/2016 11:39 AM PDT | | TECHNIQUE: Noncontrast axial CT imaging was obtained through the chest with | | coronal and sagittal reformats. Axial MIP images were acquired. | | | | CLINICAL INFORMATION: Pulmonary nodule | | | | COMPARISON: CT chest dated 10/25/2015, 11/10/2014, and 05/17/2014. | | | | FINDINGS: | | BONES: No osteoblastic or osteolytic lesion. Moderate sigmoid curvature of the | | thoracic and lumbar spine. No acute osseous abnormality. | | | | CHEST: | | Chest Wall: Unchanged calcifications at the right anterolateral chest wall. | | Known postoperative changes at the upper right breast. | | | | Mediastinum and star: No lymphadenopathy. | | Heart and pericardium: Heart size is normal. No pericardial effusion. Prominent | | annular mitral calcifications. | | Vessels: Prominent vascular calcifications are noted at the coronary arteries. | | Tortuous aorta. | | | | Large airways: Mild cylindrical bronchiectasis and mild to moderate bronchial | | wall thickening and the inferior right lower lobe. Minimal cylindrical | | bronchiectasis also likely at the left lower lobe. | | Pleura: No pleural effusion or pneumothorax. Interval resolution of the right | | pleural effusion. | | | | Lungs: Diffuse centrilobular emphysematous changes. | | Right upper lobe: Unchanged 2 mm nodule, image 44, best demonstrated on prior | | imaging dated 11/10/2014. | | Right middle lobe: No nodule or mass lesion. | | Right lower lobe: Posterior inferior airspace disease, likely atelectasis and | | scarring. | | Left upper lobe: Unchanged 6 mm left apical nodule, image 10. Unchanged apical | | fibronodular scarring. Unchanged left apical 3 mm ground glass nodularity. | | Unchanged 3 mm nodule, image 33. Small focus of peripheral scarring/atelectasis, | | image 55, new from prior. | | Left lower lobe: No nodule or mass lesion. Minimal to mild basilar dependent | | atelectasis. | | | | UPPER ABDOMEN: No concerning abnormality. | | | | | | IMPRESSION - | | | | Unchanged appearance of multiple pulmonary nodules, the largest is at the left | | apex and measures 6 mm. No new pulmonary nodules. Centrilobular emphysematous | | changes. | | | | Bilateral bronchiectasis and inferior basilar scarring/fibrosis, most prominent | | at the right lung base. | | | | | | Lung Rads assessment category: 2, benign appearance. | | | | Dictated and Signed by: Maksim Butcher MD | | Electronically signed: 11/27/2016 11:36 AM | + + + +---------+ + + | Performing | Address | City/State/Zipcode | Phone Number | | Organization | | | | + +---------+ + + | [facility] | | | | + +---------+ + + documented in this encounter Visit Diagnoses + + | Diagnosis | + + | Pulmonary nodule Solitary pulmonary nodule | + + documented in this encounter"
--- OUTSIDE RECORDS SUMMARY | ~2019-06-13 | XMS | Encounter Summary ---
Demographics + + + | Address | [address] | | | [place] [address] | + + + | Home Phone [...] Team Providers + +------+ + | Care Client Experience Administrator Name | Role | Phone | [...] [address] | | | | | Chronic | [place], | W Jay | | | | | cough | Jenna B, | [place], | | | | | Procedures | MD [address] | [place] [address] | | | | | CT Chest w | [address] | Phone: | | | | | Contrast | [place], | [phone] | | | | | | [place] [address] | Fax: | | | | | | | [phone] | +--------+--------+ + + + + Reason for Visit + + + | Reason | Comments | + + + | Establish Care | | + + + Evaluate & Treat (Routine) +--------+--------+ + + + + | Status | Reason | Specialty | Diagnoses / | Referred By | Referred To | | | | | Procedures | Contact | Contact | +--------+--------+ + + + + | Closed | | Pulmonary | Diagnoses | Lewis, | Crow, | | | | Disease / | Chronic | Mike | Jenna George, | | | | Pulmonology | airway | MD Destiny | | | | | | obstruction, | [address] | | | | | | not | [place] | | | | | | elsewhere | [place], | | | | | | classified | [place] [address] | | | | | | Extrinsic | Phone: | | | | | | asthma, | [phone] | | | | | | unspecified | Fax: | | | | | | Cough | [phone] | | | | | | Procedures | | | | | | | NEW PATIENT | | | +--------+--------+ + + + + Encounter Details +--------+---------+ + + + | Date | Type | Department | Care Team | Description | +--------+---------+ + + + | 05/06/ | Office | [facility] | Crow, | Chronic cough | | 2014 | Visit | PULMONARY [address] | Jenna George MD | (Primary Dx); | | | | [place], | | Obstructive chronic | | | | [place] [address] | | bronchitis ([facility]); | | | | [phone] | | GERD | | | | | | (gastroesophageal | | | | | | reflux disease); | | | | | | Chronic sinusitis | +--------+---------+ + + + Social History [...] + + + | Blood Pressure | 152/78 | 05/06/2014 11:00 AM | | | | | PDT | | + + + + + | Pulse | 70 | 05/06/2014 11:00 AM | | | | | PDT | | + + + + + | Temperature | 36.8 C (98.3 F) | 05/06/2014 11:00 AM | | | | | PDT | | + + + + + | Respiratory Rate | - | - | | + + + + + | Oxygen Saturation | 99% | 05/06/2014 11:00 AM | | | | | PDT | | + + + + + | Inhaled Oxygen | - | - | | | Concentration | | | | + + + + + | Weight | 64.7 kg (142 lb 11.2 | 05/06/2014 11:00 AM | | | | oz) | PDT | | + + + + + | Height | 165.1 cm (5' 5") | 05/06/2014 11:00 AM | | | | | PDT | | + + + + + | Body Mass Index | 23.75 | 05/06/2014 11:00 AM | | | | | PDT | | + + + + + documented in this encounter Patient Instructions Patient Instructions Jenna Maria MD - 05/06/2014 12:13 PM PDTStop the Spiriva. Start on Advair, 1 inhalation twice daily. Rinse your mouth after use. Start nasal flunisolide 2 sprays to each nostril once daily. Instructions for Using a Nasal [place] To use the nasal spray properly, close one side of the nostril, place the spray part way in , angle slightly towards the outside of the nostril, and then spray as you breathe in throug h your nose. Have the upper GI test and the CT scan. We will schedule these. If they can't be done the , we can change the order to do the upper GI in [place]. documented in this encounter Progress Notes Jenna Maria MD - 05/06/2014 11:17 AM PDTFormatting of this note might be differe nt from the original. Pulmonary Consult Referring Provider: Mike Saucedo,* HPI Shireen Posey is a 74 y.o. female patient of Mike Saucedo here today fo r evaluation of productive cough and infrequent shortness of breath. She notes that she first started coughing at least 5 years ago. It became productive in the last year. It is productive at least 1/3 of the time of the cough. She thinks the cough has probably also gotten worse over the last 5 years. She used to feel like when she was out we eding and bending over, she would have to cough and cough up something, now it just seems to happen anytime. She notes that she infrequently gets shortness of breath over the 1 1/2 to 2 years. She not es that she tends only to get shortness of breath when she walks uphill and goes up her base ment stairs. Currently they are able to walk 1 mile at their own pace on level ground. The d rosalie walked is predominately limited by knee pain. One year ago, they feel that they coul d walk about the same distance. She does not exercise regularly. She does stay fairly active doing house work, yard work. She does not sit until nighttime. 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 She has not identified any other triggers for her cough, other than possibly drinking milk which feels causes her to produce phlegm. She also feels like when she lies down at night sh e coughs. She hears an internal rattle up in her sinuses, and when she coughs this seems to clear out. She has not identified any relieving factors. She has tried Spiriva, but if she g oes without it for several days, she does not notice any significant difference. She has bee n on this for about 1 year. She has also been on an as needed inhaler before, but did not no antonio any significant difference with this either. The only trigger for her shortness of breath is exerting herself. She has not identified an y relieving factors. She has had to be hospitalized for breathing issues in the past, when she had an aspiration event in 1992. She had a bronchoscopy done which grew hemophilus influenza. When she wakes up in the mornings, she has some sinus pressure or tightness, and this goes away after a while. She just started on a sinus rinse. She has had symptoms of heartburn and reflux in the past, but she underwent a fundoplicatio n and a hiatal hernia repair at [facility] with Dr. March in 2011. She no longer has any sympto ms of this. Past Medical History Past Medical History [...] knee 2008 Ruptured appendix 1960 Placenta previa Past Surgical History Past Surgical History Procedure Date Tonsillectomy and adenoidectomy 1949 Appendectomy 1960 Breast lumpectomy 1997 Right Knee arthroscopy 2008 Right Bronchoscopy 1992 Venous closure 2010 Gastric fundoplication 2011 with hiatal hernia repair Skin cancer excision 2012 Colonoscopy 2013 Bladder repair 2010 Coapitite Procedure Family History: Family History Problem Relation Age of Onset Coronary artery disease Father Diabetes Father Heart disease Father Heart failure Mother Stroke Mother after sx for a hip fracture Colon cancer Sister Ovarian cancer Sister Other (See Comment) Sister pulmonary fibrosis Dementia Brother Arthritis Brother back issues Social History: History Social History Marital Status: Spouse Name: N/A Number of Children: N/A Years of Education: N/A 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 Social History Main Topics Smoking status: Former Smoker -- 0.7 packs/day for 40 years Types: Cigarettes Quit date: 05/06/2009 Smokeless tobacco: None Alcohol Use: No Drug Use: No Sexually Active: None Other Topics Concern None Social History Narrative Lives: in [place] With: her husbandGrew up: [place] Has previously lived in: [place] onlyExp osure to toxic chemicals: DDT on crops and in well water, [facility]posure to asbest os: noExposure to tuberculosis: no Has had a PPD or Quantiferon before: yes, negativeHas pet s at home: no Has ever owned birds: as a child, a pigeonOther animal exposures: not nowHobbi es: scrapbooking, yardwork, gardening, baking, reading Allergies: No Known Allergies Medications: Outpatient Encounter Prescriptions as of 05/06/2014 Medication Sig Dispense Refill Calcium Carb-Cholecalciferol (CALCIUM 1000 + D PO) Take by mouth Daily. cholecalciferol (VITAMIN D-3) 2000 UNITS TABS Take 2,000 Units by mouth Daily. tiotropium (SPIRIVA) 18 mcg inhalation capsule Inhale 18 mcg into the lungs Daily. Review of Systems Constitutional: Denies fever, chills, sweats, and change in weight. Sleep: Denies difficulty sleeping, excessive snoring, and daytime sleepiness. Eyes: Denies vision change and eye irritation. ENT: Denies earache, decreased hearing, nasal congestion, nosebleeds, sore throat, and ho arseness. Has sinus drainage and congestion. Resp: See HPI. CV: Denies chest pain, palpitations, syncope, and peripheral edema. GI: Denies nausea, vomiting, and abdominal pain. Has had heartburn, no symptoms now, does not take anything. : Denies difficulty emptying bladder. Musculoskeletal: Denies joint pain/stiffness. Has leg cramps quite often. Her right knee sw ells at times. Derm: Denies itching, dryness, and suspicious lesions. Mild rosacea. Has had basal cell car cinoma. Neurologic: Denies frequent headaches, seizures, and vertigo. Has numbness and tingling in her toes at night when she goes to bed. She also gets numbness in her fingers when carrying heavy objects. Occasional dizzy spells, like she is going to pass out. Psych: Denies depression, anxiety, and suicidal ideation. Endo: Denies cold intolerance, heat intolerance, and unusual weight change. Heme: Denies bleeding, and enlarged lymph nodes. Has some easy bruising. Allergy: Denies food allergies, allergic rash, and hay fever. Objective BP 152/78 | Pulse 70 | Temp 36.8 C (98.3 F) (Tympanic) | Ht 1.651 m (5' 5") | Wt 64.728 kg (142 lb 11.2 oz) | BMI 23.75 kg/m2 | SpO2 99% General Appearance: Alert, cooperative, no distress, appears stated age Head: Normocephalic, without obvious abnormality, atraumatic Eyes: PERRL, conjunctiva clear, no scleral icterus, EOM's intact Ears: Normal TM's, external auditory canals, normal acuity Nose: Nares normal, septum midline, mucosa edematous Mouth: No oral lesions or exudate Neck: Supple, symmetrical, no adenopathy Lungs: No accessory muscle use, breath sounds are diminished bilaterally with some prolon gation of the expiratory phase, no wheezes, crackles or rhonchi Chest Wall: No deformity Heart: Regular rate and rhythm, 1-2/6 systolic murmur, no rub or gallop Abdomen: Soft, non-tender, non-distended Extremities: No cyanosis, clubbing, or edema Pulses: Radial pulses 2+ and symmetric Skin: Warm and dry Lymph nodes: Cervical and supraclavicular nodes normal Data: Chest x-ray done prior to clinic today was reviewed and interpreted in clinic today. It justen ws what appears to be a nipple shadow, and changes consistent with hyperinflation. Pulmonary function tests were performed prior to clinic today and were reviewed and interpr eted in clinic today. They show mild obstructive disease on spirometry and a mildly reduced diffusion capacity. Lung volumes appear inaccurate. Mike Saucedo's notes were reviewed in clinic today. Immunization History Administered Date(s) Administered PNEUMOCOCCAL POLYSACCHARIDE 23-VALENT (PPSV23) 07/22/1992, 07/22/2010 TETANUS TOXOID ABSORBED, (ADOL/ADULT) 07/22/1995 TRIVALENT INFLUENZA, PRESERATIVE FREE (PED/ADOL/ADULT) 04/06/2014 ZOSTER, 1 DOSE (ADULT) 07/22/2010 Assessment 1. Chronic cough - Etiology is not completely apparent, though I suspect that chronic bronc hitis plays a role. In addition, I worry about reflux playing a role as well, and it may hav e recurred subsequent to her Parker procedure. Chronic sinus disease with post nasal drip is also a suspicion. We will attempt to treat the chronic bronchitis with a different inhaler (as the Spiriva did not work, we will try a LABA/ICS combination), start nasal flunisolide, perform and UGI exam and get a chest CT scan to exclude other causes of cough such as fibrot ic lung disease (though PFTs are inconsistent with this). 2. Obstructive chronic bronchitis (HCC) - On Spiriva without benefit. PFTs do support a deg ree of COPD. I would trial switching to a LABA/ICS combination to see if this is more effect silke. 3. GERD (gastroesophageal reflux disease) - S/p Parker and without significant symptoms. Sh e may now not have symptoms, especially in light of possible denervation after surgery. We w ill check an upper GI. 4. Chronic sinusitis - History of chronic sinusitis of unclear etiology, with some ongoing symptoms. Does not seem allergic, but we will first trial a nasal steroid. It could be LPRD from reflux disease. Plan 1.Stop Spiriva and start Advair 250mcg dose, 1 inhalation twice daily. 2.Start nasal flunisolide 2 sprays to each nostril once daily. 3.Check upper GI barium swallow. 4. Check chest CT scan to exclude bronchiectasis and fibrosis. She was advised to call if new pulmonary symptoms were to develop. Return to clinic in September after returns from [place], or sooner with concerns. CC: Mike Saucedo, [place], Mike Dixon,* Portions of this report were transcribed using voice recognition software. Every effort wa s made to ensure accuracy; however, inadvertent computerized warehouse technician errors may be pre sent. Electronically signed by: Jenna Maria MD 05/06/2014 11:51 documented in t his encounter Plan of Treatment +--------+---------+ + + + | Date | Type | Specialty | Care Team | Description | +--------+---------+ + + + | 07/08/ | Office | Cardiology | Nannette Morrison, | | | 2019 | Visit | | MD [address] | | | | | | [place] | | | | | | [phone] | | | | | | | | +--------+---------+ + + + | 11/04/ | Office | Pulmonology | Sukhjinder, | | | 2019 | Visit | | Windy Aldrich, | | | | | | MD [address] | | | | | | [place], | | | | | | [place] [address] | | | | | | [phone] | | | | | | | | +--------+---------+ + + + documented as of this encounter Procedures + +--------+ + + + | Procedure Name | Priori | Date/Time | Associated Diagnosis | Comments | | | ty | | | | + +--------+ + + + | DIAGNOSTIC REPORT - | | 01/16/2013 | Chronic cough | | | EXTERNAL SCAN | | 12:00 AM | | | | | | PDT | | | + +--------+ + + + documented in this encounter Results FL VERITO (05/17/2014 11:24 AM PDT) + + | Specimen | + + | | + + + + + | Narrative | Performed At | + + + | UPPER GI SERIES: 05/17/2014 11:22 AM CLINICAL HISTORY: Evaluate | [facility] | | for reflux, h/o reflux, chronic cough, s/p Parker 2011 | LAB | | COMPARISON: None FINDINGS: Patient is studied utilizing dual | | | contrast technique. Swallowing was prompt and coordinated with no | | | penetration or aspiration of barium into the airway at any time. | | | Primary and secondary stripping waves of the esophagus were normal in | | | the upper two thirds of the esophagus. Distal esophagus is mildly | | | dilated and less contractile. Distal esophagus shows typical | | | fundoplication architecture. No other esophageal stricture or | | | irregularity. Esophageal mucosa appeared normal. Esophageal lumen | | | through the fundoplication is uniform with maximum diameter estimated | | | at just under 1 cm. Liquid barium passed readily through this region, | | | but despite this the distal esophagus emptied slowly and had a | | | persistent residual collection of barium. No reflux was demonstrated. | | | Stomach showed normal pliability and mucosal pattern. Duodenal | | | bulb is seen in the air and contrast filled state. No irregularity or | | | ulceration. Proximal duodenum appear normal. IMPRESSION - 1. | | | Postop fundoplication changes with narrowed but patent distal | | | esophagus. Mild distal esophageal dilation and delayed emptying. No | | | reflux demonstrated. 2. Otherwise normal upper GI series. | | | Dictated and Signed by: Ilan Barbour MD Electronically signed: | | | 05/17/2014 1:03 PM | | + + + + + | Procedure Note | + + | Jose, Rad Results In - 05/17/2014 1:06 PM PDT UPPER GI SERIES: 05/17/2014 11:22 AM | | | | CLINICAL HISTORY: Evaluate for reflux, h/o reflux, chronic cough, s/p Parker | | 2011 | | | | COMPARISON: None | | | | FINDINGS: Patient is studied utilizing dual contrast technique. Swallowing was | | prompt and coordinated with no penetration or aspiration of barium into the | | airway at any time. | | | | Primary and secondary stripping waves of the esophagus were normal in the upper | | two thirds of the esophagus. Distal esophagus is mildly dilated and less | | contractile. Distal esophagus shows typical fundoplication architecture. No | | other esophageal stricture or irregularity. Esophageal mucosa appeared normal. | | | | Esophageal lumen through the fundoplication is uniform with maximum diameter | | estimated at just under 1 cm. Liquid barium passed readily through this region, | | but despite this the distal esophagus emptied slowly and had a persistent | | residual collection of barium. No reflux was demonstrated. | | | | Stomach showed normal pliability and mucosal pattern. Duodenal bulb is seen in | | the air and contrast filled state. No irregularity or ulceration. Proximal | | duodenum appear normal. | | | | IMPRESSION - | | 1. Postop fundoplication changes with narrowed but patent distal esophagus. Mild | | distal esophageal dilation and delayed emptying. No reflux demonstrated. | | | | 2. Otherwise normal upper GI series. | | | | Dictated and Signed by: Ilan Barbour MD | | Electronically signed: 05/17/2014 1:03 PM | + + + +---------+ + + | Performing | Address | City/State/Zipcode | Phone Number | | Organization | | | | + +---------+ + + | [facility] | | | [phone] | + +---------+ + + | [facility] | | | [phone] | + +---------+ + + CT Chest w Contrast (05/17/2014 10:41 AM PDT) + + | Specimen | + + | | + + + + + | Narrative | Performed At | + + + | EXAM: CT CHEST WITH CONTRAST:05/17/2014 9:39 AM HISTORY: chronic | [facility] | | cough, history of reflux, family history of fibrosis COMPARISON: | LAB | | Chest x-ray performed 05/06/2014. TECHNIQUE: Axial images are | | | obtained from thoracic inlet to upper abdomen during the uneventful | | | administration of 75 mL of Omnipaque 350. DOSE: DLP 130.41 mGy-cm | | | FINDINGS: Lungs: Noncalcified 5.8 mm nodule in the left | | | apex. Nodular interstitial thickening in the lung bases on the | | | left. Similar findings are seen in the right. There is also an | | | area of consolidation in the right lung base. 2.5 mm noncalcified | | | nodule in the right lower lobe in the midportion. Bilateral | | | bronchial wall thickening in the lower lobes. That bilateral right | | | greater than left bronchiectasis. There is the appearance of some | | | early fibrosis developing in the right middle lobe. There are no | | | pleural effusions. There is a small component of emphysema. | | | Heart and mediastinum: There are subcentimeter mediastinal and hilar | | | lymph nodes. There is no significant cardiac chamber enlargement. | | | Mild enlargement of the ascending thoracic aorta measuring 4.1 cm. | | | No pulmonary artery enlargement. No pericardial thickening. | | | Chest wall: There is an area of parenchymal distortion and spiculation | | | in the superior lateral right breast. Upper abdomen: | | | Postsurgical changes near the gastroesophageal junction. Partial | | | visualization of a mildly prominent mid common bile duct. This | | | measures about 1 cm. This may be age related. It is slightly | | | greater than would be expected. Bones: There is scoliosis with | | | associated spondylosis. There are no acute osseous abnormalities. | | | There are no suspicious lytic or blastic bone lesions. There is a | | | hemangioma in the anterior aspect of T12. There is a small superior | | | endplate deformity involving T12. IMPRESSION - Nonspecific | | | 5.8 mm noncalcified nodule in the left apex. Nonspecific 2.5 mm | | | nodule in the right lower lobe. Consider follow-up based on the | | | patient's clinical risk factors for lung neoplasia. | | | Bronchiectasis and findings suggesting early lower lobe fibrosis. | | | Bilateral areas of lower lobe probable consolidation. This may be | | | from mucous plugging. Consider follow-up. There is an area of | | | parenchymal distortion and spiculation in the right breast. This is | | | concerning given its morphology. The patient should have a | | | diagnostic workup of this breast. Dictated and Signed by: Marin Crisostomo | | | MD Macey Electronically signed: 05/17/2014 3:01 PM | | + + + + + | Procedure Note | + + | Jose, Rad Results In - 05/17/2014 3:04 PM PDT EXAM: CT CHEST WITH CONTRAST:05/17/2014 | | 9:39 AMHISTORY: chronic cough, history of reflux, family history of fibrosisCOMPARISON: | | Chest x-ray performed 05/06/2014.TECHNIQUE: Axial images are obtained from thoracic | | inlet to upper abdomen duringthe uneventful administration of 75 mL of Omnipaque | | 350.DOSE: DLP 130.41 mGy-cm FINDINGS: Lungs: Noncalcified 5.8 mm nodule in the left | | apex. Nodular interstitialthickening in the lung bases on the left. Similar findings | | are seen in theright. There is also an area of consolidation in the right lung base. | | 2.5 mmnoncalcified nodule in the right lower lobe in the midportion. Bilateralbronchial | | wall thickening in the lower lobes. That bilateral right greater thanleft | | bronchiectasis. There is the appearance of some early fibrosis developingin the right | | middle lobe. There are no pleural effusions. There is a smallcomponent of | | emphysema.Heart and mediastinum: There are subcentimeter mediastinal and hilar | | lymphnodes. There is no significant cardiac chamber enlargement. Mild enlargementof | | the ascending thoracic aorta measuring 4.1 cm. No pulmonary arteryenlargement. No | | pericardial thickening.Chest wall: There is an area of parenchymal distortion and | | spiculation in thesuperior lateral right breast.Upper abdomen: Postsurgical changes near | | the gastroesophageal junction. Partialvisualization of a mildly prominent mid common | | bile duct. This measures about 1cm. This may be age related. It is slightly greater | | than would be expected.Bones: There is scoliosis with associated spondylosis. There are | | no acuteosseous abnormalities. There are no suspicious lytic or blastic bone lesions. | | There is a hemangioma in the anterior aspect of T12. There is a small superiorendplate | | deformity involving T12.IMPRESSION - Nonspecific 5.8 mm noncalcified nodule in the left | | apex. Nonspecific 2.5 mmnodule in the right lower lobe. Consider follow-up based on | | the patient'sclinical risk factors for lung neoplasia.Bronchiectasis and findings | | suggesting early lower lobe fibrosis.Bilateral areas of lower lobe probable | | consolidation. This may be from mucousplugging. Consider follow-up.There is an area of | | parenchymal distortion and spiculation in the right breast. This is concerning given | | its morphology. The patient should have a diagnosticworkup of this breast.Dictated and | | Signed by: Marin Choudhury MD Electronically signed: 05/17/2014 3:01 PM | | | |Upper abdomen: Postsurgical changes near the gastroesophageal junction. Partial | |visualization of a mildly prominent mid common bile duct. This measures about 1 | |cm. This may be age related. It is slightly greater than would be expected. | | | |Bones: There is scoliosis with associated spondylosis. There are no acute | |osseous abnormalities. There are no suspicious lytic or blastic bone lesions. | |There is a hemangioma in the anterior aspect of T12. There is a small superior | |endplate deformity involving T12. | | | |IMPRESSION - | | | |Nonspecific 5.8 mm noncalcified nodule in the left apex. Nonspecific 2.5 mm | |nodule in the right lower lobe. Consider follow-up based on the patient's | |clinical risk factors for lung neoplasia. | | | |Bronchiectasis and findings suggesting early lower lobe fibrosis. | | | |Bilateral areas of lower lobe probable consolidation. This may be from mucous | |plugging. Consider follow-up. | | | |There is an area of parenchymal distortion and spiculation in the right breast. | |This is concerning given its morphology. The patient should have a diagnostic | |workup of this breast. | | | |Dictated and Signed by: Marin Choudhury MD | | Electronically signed: 05/17/2014 3:01 PM | + + + +---------+ + + | Performing | Address | City/State/Zipcode | Phone Number | | Organization | | | | + +---------+ + + | [facility] | | | [phone] | + +---------+ + + | [facility] | | | [phone] | + +---------+ + + documented in this encounter Visit Diagnoses + + | Diagnosis | + + | Chronic cough - Primary Cough | + + | Obstructive chronic bronchitis (HCC) Obstructive chronic bronchitis without | | exacerbation | + + | GERD (gastroesophageal reflux disease) Esophageal reflux | + + | Chronic sinusitis Unspecified sinusitis (chronic) | + + documented in this encounter
--- OUTSIDE RECORDS SUMMARY | ~2019-06-13 | XMS | Encounter Summary ---
Demographics + + + | Address | [address] | | | [place] [address] | + + + | Home Phone | | + + + | Preferred Language | Unknown | + + + | Marital Status | | + + + | Presybeterian Affiliation | 1041 | + + + | Race | Unknown | + + + | Ethnic Group | Unknown | + + + Author + + + | Author | [facility] | | | and [place] | + + + | Organization | [facility] | | | and [place] | + + + | Address | Unknown | + + + | Phone | Unavailable | + + + Support + + +---------+ + | Name | Relationship | Address | Phone | + + +---------+ + | Sade Beckwith | ECON | Unknown | | + + +---------+ + | Irvingtongracie Red) | ECON | Unknown | | | Kalpesh | | | | + + +---------+ + Care Team Providers + +------+ + | Care Geographic Information System Analyst Name | Role | Phone | + +------+ + PCP | Unavailable | + +------+ + Encounter Details +--------+ + + + + | Date | Type | Department | Care Team | Description | +--------+ + + + + | 02/06/ | Hospital | [facility] | Brant Sage, | | | 1995 | Encounter | MED CTR XRAY [address] | MD [address] [facility] | | | | | [place] | [place], [place] | | | | | [place] [address] | [address] | | | | | [phone] | | | +--------+ + + + [...] [place] | | | | | | [address] | | | | | | | | +--------+---------+ + + + | 11/04/ | Office | Pulmonology | Sukhjinder, | | | 2019 | Visit | | Windy Aldrich, | | | | | | MD [address] | | | | | | [place] | | | | | | [place] [address] | | | | | | [phone] | | | | | | | | +--------+---------+ + + + documented as of this encounter Visit Diagnoses Not on filedocumented in this encounter"
--- OUTSIDE RECORDS SUMMARY | ~2019-06-13 | XMS | Encounter Summary ---
Demographics + + + | Address | [address] | | | [place] [address] | + + + | Home Phone | | + + + | Preferred Language | Unknown | + + + | Marital Status | | + + + | Jehovah'S Witness Affiliation | 1041 | + + + | Race | Unknown | + + + | Ethnic Group | Unknown | + + + Author + + + | Author | [facility] | | | and [place] | + + + | Organization | [facility] | | | and [place] | + + + | Address | Unknown | + + + | Phone | Unavailable | + + + Support + + +---------+ + | Name | Relationship | Address | Phone | + + +---------+ + | Sade Beckwith | ECON | Unknown | | + + +---------+ + | Eriegracie Red) | ECON | Unknown | | | Kalpesh | | | | + + +---------+ + Care Team Providers + +------+ + | Care Online Journalist Name | Role | Phone | + [...] + + | 07/17/ | Telephone | [facility] | Abdi Wallace | Follow-up | | 2018 | | ORTHOPEDIC SURGERY | MD Casandra [address] [facility] | | | | | [address] [facility] | [place], [place] | | | | | [place], [place] | [address] | | | | | [address] | | | | | | [phone] | | | +--------+ + + + [...] [place] | | | | | | [address] | | | | | | | | +--------+---------+ + + + | 11/04/ | Office | Pulmonology | Sukhjinder, | | | 2019 | Visit | | Windy Aldrich, | | | | | | MD [address] | | | | | | [place] | | | | | | [place] [address] | | | | | | [phone] | | | | | | | | +--------+---------+ + + + documented as of this encounter Visit Diagnoses Not on filedocumented in this encounter"
--- OUTSIDE RECORDS SUMMARY | ~2019-06-13 | XMS | Encounter Summary ---
Demographics + + + | Address | [address] | | | [place] [address] | + + + | Home Phone | | + + + | Preferred Language | Unknown | + + + | Marital Status | | + + + | Worship Affiliation | 1041 | + + + | Race | Unknown | + + + | Ethnic Group | Unknown | + + + Author + + + | Author | [facility] | | | and [place] | + + + | Organization | [facility] | | [...] Team Providers + +------+ + | Care Fingerer Name | Role | Phone | + +------+ + | Mike Saucedo MD | PCP | | + +------+ + Encounter Details +--------+ + + + + | Date | Type | Department | Care Team | Description | +--------+ + + + + | 05/21/ | Hospital | [facility] | Conversion | Diagnosis unknown | | 2016 | Encounter | CONVERSION [address] | Transaction, | | | | [address] | Provider Unknown | | | | | [place], [place] | [phone] | | | | | [address] | | | | | | [phone] | | | +--------+ + + + [...] [place] | | | | | | [address] | | | | | | | | +--------+---------+ + + + | 11/04/ | Office | Pulmonology | Sukhjinder, | | | 2019 | Visit | | Windy Aldrich, | | | | | | MD [address] | | | | | | [place] | | | | | | [place] [address] | | | | | | [phone] | | | | | | | | +--------+---------+ + + + documented as of this encounter Procedures + +--------+ + + + | Procedure Name | Priori | Date/Time | Associated Diagnosis | Comments | | | ty | | | | + +--------+ + + + | CT CHEST WO CONTRAST | Routin | 11/10/2014 | | Results for this | | | e | 7:30 PM | | procedure are in the | | | | PDT | | results section. | + +--------+ + + + documented in this encounter Results CT Chest wo Contrast (11/10/2014 7:30 PM PDT) + + | Specimen | [...]
--- OUTSIDE RECORDS SUMMARY | ~2019-06-13 | XMS | Encounter Summary ---
Demographics + + + | Address | [address] | | | [place] [address] | + + + | Home Phone | | + + + | Preferred Language | Unknown | + + + | Marital Status | | + + + | Caodaism Affiliation | 1041 | + + + | Race | Unknown | + + + | Ethnic Group | Unknown | + + + Author + + + | Author | [facility] | | | and [place] | + + + | Organization | [facility] | | | and [place] | + + + | Address | Unknown | + + + | Phone | Unavailable | + + + Support + + +---------+ + | Name | Relationship | Address | Phone | + + +---------+ + | Sade Beckwith | ECON | Unknown | | + + +---------+ + | Hurleygracie Red) | ECON | Unknown | | | Kalpesh | | | | + + +---------+ + Care Team Providers + +------+ + | Care Consulting Manager Name | Role | Phone | [...] | | Chronic | [place], | [address] | | | | | cough | Jenna B, | [place], | | | | | Procedures | MD [address] | [place] [address] | | | | | CT Chest w | [address] | Phone: | | | | | Contrast | [place], | [phone] | | | | | | [place] [address] | Fax: | | | | | | | [phone] | +--------+--------+ + + + + Reason for Visit Diagnostic/Screening (Routine) +--------+--------+ + + + + | Status | Reason | Specialty | Diagnoses / | Referred By | Referred To | | | | | Procedures | Contact | Contact | +--------+--------+ + + + + | Closed | | Radiology | Diagnoses | | [address] | | | | | Chronic | [place], | [address] | | | | | cough | Jenna B, | [place], | | | | | Dougie | [address] | [place] [address] | | | | | CT Chest w | [address] | Phone: | | | | | Contrast | [place], | [phone] | | | | | | [place] [address] | Fax: | | | | | | | [phone] | +--------+--------+ + + + + Encounter Details +--------+ + + + + | Date | Type | Department | Care Team | Description | +--------+ + + + + | 05/17/ | Hospital | [facility] | [place], | Chronic cough | | 2013 | Encounter | MED CTR [address] | Jenna George MD | (Primary Dx) | | | | [place], | | | | | | [place] [address] | | | | | | [phone] | | | +--------+ + + + [...] | | | | | [place] | | | | | | [address] | | | | | | | | +--------+---------+ + + + | 11/04/ | Office | Pulmonology | Sukhjinder, | | | 2019 | Visit | | Windy Aldrich, | | | | | | [address] | | | | | | [place], | | | | | | [place] [address] | | | | | | [phone] | | | | | | | | +--------+---------+ + + + documented as of this encounter Procedures + +--------+ + + + | Procedure Name | Priori | Date/Time | Associated Diagnosis | Comments | | | ty | | | | + +--------+ + + + | CT CHEST W CONTRAST | Routin | 05/17/2014 | Chronic cough | Results for this | | | e | 10:41 AM | | procedure are in the | | | | PDT | | results section. | + +--------+ + + + documented in this encounter Results CT Chest w Contrast (05/17/2014 10:41 AM [...] + | MISCELLANEOUS LAB | | | [phone] | + +---------+ + + | MISCELANIOUS LAB | | | [phone] | + +---------+ + + documented in this encounter Visit Diagnoses + + | Diagnosis | + + | Chronic cough - Primary Cough | + + documented in this encounter Administered Medications + +--------+ +--------+------+------+ | Medication Order | MAR | Action | Dose | Rate | Site | | | Action | Date | | | | + +--------+ +--------+------+------+ | iohexol (OMNIPAQUE 350) 350 | Given | 05/17/20 | 75 mLs | | | | mg/mL injection 75 mL 75 mL, | | 14 10:40 | | | | | Intravenous, ONCE PRN, Other, | | AM PDT | | | | | Starting 05/17/14 at 1033, | | | | | | | For 1 dose, Cat Scanner | | | | | | + +--------+ +--------+------+------+ +---+---+ | | | +---+---+ documented in this encounter"
--- OUTSIDE RECORDS SUMMARY | ~2019-06-13 | XMS | Encounter Summary ---
Demographics + + + | Address | [address] | | | [place] [address] | + + + | Home Phone | | + + + | Preferred Language | Unknown | + + + | Marital Status | | + + + | Congregation Affiliation | 1041 | + + + | Race | Unknown | + + + | Ethnic Group | Unknown | + + + Author + + + | Author | [facility] | | | and [place] | + + + | Organization | [facility] | | | and [place] | + + + | Address | Unknown | + + + | Phone | Unavailable | + + + Support + + +---------+ + | Name | Relationship | Address | Phone | + + +---------+ + | Sade Beckwith | ECON | Unknown | | + + +---------+ + | [place] Centergracie Red) | ECON | Unknown | | | Kalpesh | | | | + + +---------+ + Care Team Providers + +------+ + | Care Sheet Pile Hammer Operator Name | Role | Phone | [...] 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
--- OUTSIDE RECORDS SUMMARY | ~2019-06-13 | XMS | Encounter Summary ---
Demographics + + + | Address | [address] | | | [place] [address] | + + + | Home Phone | | + + + | Preferred Language | Unknown | + + + | Marital Status | | + + + | Christian Affiliation | 1041 | + + + | Race | Unknown | + + + | Ethnic Group | Unknown | + + + Author + + + | Author | [facility] | | | and [place] | + + + | Organization | [facility] | | | and [place] | + + + | Address | Unknown | + + + | Phone | Unavailable | + + + Support + + +---------+ + | Name | Relationship | Address | Phone | + + +---------+ + | Sade Beckwith | ECON | Unknown | | + + +---------+ + | [place]gracie Red) | ECON | Unknown | | | Kalpesh | | | | + + +---------+ + Care Team Providers + +------+ + | Care Staff Internist Office Based Only Name | Role | Phone | + +------+ + PCP | Unavailable | + +------+ + Encounter Details +--------+ + + + + | Date | Type | Department | Care Team | Description | +--------+ + + + + | 02/06/ | Hospital | [facility] | Brant Sage, | | | 1995 | Encounter | MED CTR XRAY [address] | MD [address] [facility] | | | | | [place] | [place], [place] | | | | | [place] [address] | [address] | | | | | [phone] | | | +--------+ + + + [...] [place] | | | | | | [address] | | | | | | | | +--------+---------+ + + + | 11/04/ | Office | Pulmonology | Sukhjinder, | | | 2019 | Visit | | Windy Aldrich, | | | | | | MD [address] | | | | | | [place] | | | | | | [place] [address] | | | | | | [phone] | | | | | | | | +--------+---------+ + + + documented as of this encounter Visit Diagnoses Not on filedocumented in this encounter"
--- OUTSIDE RECORDS SUMMARY | ~2019-06-13 | XMS | Encounter Summary ---
Demographics + + + | Address | [address] | | | [place] [address] | + + + | Home Phone [...] | + + +---------+ + | [place]gracie Red) | ECON | Unknown | | | [place] | | | | + + +---------+ + Care Team Providers + +------+ + | Care Software Project Lead Name | Role | Phone | + +------+ + | Mike Saucedo MD | PCP | | + +------+ + Encounter Details +--------+ + + + + | Date | Type | Department | Care Team | Description | +--------+ + + + + | 05/17/ | Hospital | [facility] | [place], | Chronic cough; GERD | | 2014 | Encounter | MED CTR XRAY [address] | MD Mookie Alicia, | (gastroesophageal | | | | [place] | [facility] | reflux disease) | | | | [place] [address] | | | | | | [phone] | | | +--------+ + + + [...] [place] | | | | | | [id number] | | | | | | | | +--------+---------+ + + + | 11/04/ | Office | Pulmonology | Sukhjinder, | | | 2019 | Visit | | Windy Aldrich, | | | | | | MD [address] | | | | | | [place] | | | | | | [place] [address] | | | | | | [phone] | | | | | | | | +--------+---------+ + + + documented as of this encounter Procedures + +--------+ + + + | Procedure Name | Priori | Date/Time | Associated Diagnosis | Comments | | | ty | | | | + +--------+ + + + | FL UGI | Routin | 05/17/2014 | Chronic cough | Results for this | | | e | 11:24 AM | GERD | procedure are in the | | | | PDT | (gastroesophageal | results section. | | | | | reflux disease) | | + +--------+ + + + documented in this encounter Results FL UGI (05/17/2014 11:24 AM PDT) + + | [...] + | MISCELLANEOUS LAB | | | [phone] | + +---------+ + + | MISCELANIOUS LAB | | | [phone] | + +---------+ + + documented in this encounter Visit Diagnoses + + | Diagnosis | + + | Chronic cough Cough | + + | GERD (gastroesophageal reflux disease) Esophageal reflux | + + documented in this encounter"
--- OUTSIDE RECORDS SUMMARY | ~2019-06-13 | XMS | Encounter Summary ---
Demographics + + + | Address | [address] | | | [place] [address] | + + + | Home Phone | | + + + | Preferred Language | Unknown | + + + | Marital Status | | + + + | Jain Affiliation | CAT | + + + | Race | White | + + + | Ethnic Group | Not or | + + + Author + + + | Author | [facility] | + + + | Organization | [facility] | + + + | Address | Unknown | + + + | Phone | Unavailable | + + + Support + + + + + | Name | Relationship | Address | Phone | + + + + + | Jer Posey | ECON | [address] | | | | [place], [place] | | | | | [address] | | + + + + + Care Team Providers + +------+ + | Care Vocational Rehabilitation Administrator Name | Role | Phone | [...] | +--------+ + + + + | 10/25/ | Anesthesia | 6A Intra Op [facility] | Mima Rodgers MD | | | 2011 | Event | [facility] | [address] | | | | | Admitting Desk | [place], | | | | | Located on the | [place] [address] | | | | | floor [address] | [phone] | | | | | [address] | | | | | | [place], [place] | Amari Gresham, | | | | | [address] | COLLECTION OFFICER [address] | | | | | | [address] | | | | | | [place], [place] | | | | | | [address] | | | | | | [phone] | | | | | | | | +--------+ + + + + Anesthesia Record + + + + + | Procedure Name | Responsible | Anesthesia Start | Anesthesia Stop Time | | | Anesthesiologist | Time | | + + + + + | LAPAROSCOPIC HIATAL | Mima Rodgers MD | 10/26/11 1054 | 10/26/11 1434 | | HERNIA REPAIR; | | | | | PETER | | | | | FUNDOPLICATION (N/A | | | | | Abdomen) | | | | + + + + + +----+---+ + + | Da | T | Event | Comment | | te | i | | | | | m | | | | | e | | | +----+---+ + + | 04 | 1 | | | | /0 | 0 | | | | 6/ | 2 | | | | 20 | 9 | | | | 12 | | | | +----+---+ + + | | 1 | Pt. Check | Prior to anesthesia start, pt. Identified, examined, chart | | | 0 | | reviewed, PARQ held, anesthetic plan made or approved by | | | 2 | | attending anesthesiologist. NPO status confirmed as appropriate | | | 9 | | for procedure Preoperative evaluation: unchanged | +----+---+ + + | | 1 | Eq Check | Anesthesia machine checked Equipment verified | | | 0 | | | | | 4 | | | | | 2 | | | +----+---+ + + | | 1 | Eq Check | Anesthesia machine checked Equipment verified | | | 0 | | | | | 4 | | | | | 8 | | | +----+---+ + + | | 1 | Preprocedur | Pt ID confirmed, informed consent obtained, insertion site | | | 0 | e Checklist | marked, equipment available | | | 4 | | | | | 9 | | | +----+---+ + + | | 1 | An Start | | | | 0 | | | | | 5 | | | | | 4 | | | +----+---+ + + | | 1 | An Start | | | | 0 | Data | | | | 5 | | | | | 8 | | | +----+---+ + + | | 1 | Vitals | Monitors applied Vital signs checked | | | 1 | Checked | | | | 0 | | | | | 4 | | | +----+---+ + + | | 1 | an lan now | | | | 1 | | | | | 0 | | | | | 9 | | | +----+---+ + + | | 1 | Std. Airway | | | | 1 | Mgt. | | | | 1 | | | | | 3 | | | +----+---+ + + | | 1 | Ready | | | | 1 | | | | | 1 | | | | | 3 | | | +----+---+ + + | | 1 | Abx | | | | 1 | Administere | | | | 1 | d | | | | 5 | | | +----+---+ + + | | 1 | Quick Note | #18fr OGT placed atraumatically; position verified by | | | 1 | | auscultation | | | 2 | | | | | 2 | | | +----+---+ + + | | 1 | Timeout | Nerve stimulator moved to LSundar Ulnar | | | 1 | | | | | 3 | | | | | 7 | | | +----+---+ + + | | 1 | Incision | | | | 1 | | | | | 3 | | | | | 7 | | | +----+---+ + + | | 1 | Quick Note | Esophageal dilators passed uneventfully per surgeon request | | | 3 | | | | | 3 | | | | | 0 | | | +----+---+ + + | | 1 | Surgery end | | | | 3 | | | | | 5 | | | | | 4 | | | +----+---+ + + | | 1 | Quick Note | | | | 4 | | | | | 0 | | | | | 3 | | | +----+---+ + + | | 1 | An Extubate | Neuromuscular function Intact. Pharynx suctioned. Patient obeys | | | 4 | | commands. Adequate pulmonary mechanics. | | | 2 | | | | | 1 | | | +----+---+ + + | | 1 | an stop | | | | 4 | data | | | | 2 | | | | | 4 | | | +----+---+ + + | | 1 | Anesthesia | | | | 4 | End | | | | 3 | | | | | 4 | | | +----+---+ + + +------+ | Meds | +------+ + + + | Name | Total | + + + | fentaNYL | 350 mcg | + + + | succinylcholine | 80 mg | + + + | lidocaine 0.4%-D5W | 89.1 mL | + + + | ceFOXitin | 1,000 mg | + + + | rocuronium | 50 mg | + + + | lidocaine 2% | 100 mg | + + + | propofol | 200 mg | + + + | neostigmine | 4 mg | + + + | glycopyrrolate | 0.6 mg | + + + | labetalol | 10 mg | + + + | ondansetron | 4 mg | + + + | LR | 1,800 mL | + + + + + | Name | + + | Avance Primary Agent 1=Iso 3= None 5=Cesar 6=Sevo | + + | EtNO2 | + + | insp | + + | Et | + + | Insp N2O % | + + | O2 Flow Rate (Total Liters) | + + | Air Flow rate (L/min) | + + + + | No blood administrations on file. | + + +--------+ + + + | Type | Details | Placement | Removal | +--------+ + + + | RETIRE | 10/26/11; Port site x5; anterior; | 10/26/11 0000 by | 05/09/17 1622 by | | D - | abdomen; 05/09/17 (Automatic | Sapphire Toney RN | Discontinued After | | Incisi | cleanup per RA 3006--contact | | Discharge | | on | admin for questions.); 1622 | | | | | (Automatic cleanup per RA | | | | | 3006--contact admin for | | | | | questions.) | | | +--------+ + + + | RETIRE | 10/26/11; 1000; 10/28/11; 1846; | 10/26/11 1000 by | 10/28/11 1846 by | | D - | No; 20; Right; Wrist (Placed by | Sapphire Toney RN | Discontinued After | | Periph | MARY Blount) | | Discharge | | eral | | | | | Line | | | | +--------+ + + + | RETIRE | 10/26/11; 1120; 10/26/11; 1404; | 10/26/11 1120 by | 10/26/11 1404 by | | D - | No; Dorian; 16FR | Sapphire Toney RN | Sapphire Toney RN | | Urinar | | | | | y Cath | | | | | | | | | | Placem | | | | | ent | | | | | (Stephy | | | | | & Cath | | | | | Care | | | | | Daily | | | | | and Q | | | | | BM) | | | | +--------+ + + + | RETIRE | 10/26/11; 112; 10/28/11; 1845; | 10/26/111124 by | 10/28/111845 by | | D - | No; 16; Left; Forearm | Amari Gresham, | Discontinued After | | Periph | | COLLECTION OFFICER | Discharge | | eral | | | | | Line | | | | +--------+ + + [...] in this encounter Administered Medications + +--------+ + +------+------+ | Medication Order | MAR | Action | Dose | Rate | Site | | | Action | Date | | | | + +--------+ + +------+------+ | ceFOXitin (aka MEFOXIN) | Given | 10/26/19 | 1,000 mg | | | | injection intravenous, | | 12 11:15 | | | | | INTRAPROCEDURE PRN, Starting Fri | | AM PDT | | | | | 10/26/11 at 1115, Until 10/26/11 | | | | | | | at 1434 | | | | | | + +--------+ + +------+------+ +---+---+ | | | +---+---+ + +-------+ +--------+---+---+ | fentaNYL citrate (PF) (aka | Given | 10/26/19 | 50 mcg | | | | SUBLIMAZE) injection | | 12 1:27 | | | | | INTRAPROCEDURE PRN, Starting Fri | | PM PDT | | | | | 10/26/11 at 1101, Until 10/26/11 | | | | | | | at 1434, sedation | | | | | | + +-------+ +--------+---+---+ +-------+ +--------+---+---+ | Given | 10/26/19 | 50 mcg | | | | | 12 12:53 | | | | | | PM PDT | | | | +-------+ +--------+---+---+ | Given | 10/26/19 | 50 mcg | | | | | 12 12:15 | | | | | | PM PDT | | | | +-------+ +--------+---+---+ +---+---+ | | | +---+---+ + +-------+ +--------+---+---+ | glycopyrrolate (aka EMMETT) | Given | 10/26/19 | 0.6 mg | | | | injection INTRAPROCEDURE PRN, | | 12 2:06 | | | | | Starting 10/26/11 at 1406, | | PM PDT | | | | | Until 10/26/11 at 1434 | | | | | | + +-------+ +--------+---+---+ +---+---+ | | | +---+---+ + +-------+ +------+---+---+ | labetalol (aka TRANDATE) IV | Given | 10/26/19 | 5 mg | | | | injection intravenous, | | 12 2:19 | | | | | INTRAPROCEDURE PRN, Starting Fri | | PM PDT | | | | | 10/26/11 at 1418, Until 10/26/11 | | | | | | | at 1434 | | | | | | + +-------+ +------+---+---+ +-------+ +------+---+---+ | Given | 10/26/19 | 5 mg | | | | | 12 2:18 | | | | | | PM PDT | | | | +-------+ +------+---+---+ +---+---+ | | | +---+---+ + + + +----+---+---+ | lactated ringers IV | given by | 10/26/19 | mL | | | | intravenous, INTRAPROCEDURE | | 12 2:30 | | | | | CONTINUOUS PRN, Starting Fri | anesthes | PM PDT | | | | | 10/26/11 at 1054, Until 10/26/11 | iology | | | | | | at 1434 | | | | | | + + + +----+---+---+ + + +----+---+---+ | given by anesthesiology | 10/26/19 | mL | | | | | 12 1:49 | | | | | | PM PDT | | | | + + +----+---+---+ | New Bag | 10/26/19 | mL | | | | | 12 12:43 | | | | | | PM PDT | | | | + + +----+---+---+ +---+---+ | | | +---+---+ + +-------+ +--------+---+---+ | lidocaine (aka XYLOCAINE MPF) | Given | 10/26/19 | 100 mg | | | | 20 mg/mL (2 %) injection | | 12 11:09 | | | | | INTRAPROCEDURE PRN, Starting Fri | | AM PDT | | | | | 10/26/11 at 1109, Until 10/26/11 | | | | | | | at 1434 | | | | | | + +-------+ +--------+---+---+ +---+---+ | | | +---+---+ + +---------+ + + +---+ | lidocaine in D5W (PF) IV | New Bag | 10/26/19 | 33 mL/hr | 33 mL/hr | | | infusion 0.4% (4 mg/mL) | | 12 11:09 | | | | | intravenous, INTRAPROCEDURE | | AM PDT | | | | | CONTINUOUS PRN, Starting Fri | | | | | | | 10/26/11 at 1109, Until 10/26/11 | | | | | | | at 1434 | | | | | | + +---------+ + + +---+ +---+---+ | | | +---+---+ + +-------+ +------+---+---+ | neostigmine (aka PROSTIGMIN) | Given | 10/26/19 | 4 mg | | | | injection intravenous, | | 12 2:06 | | | | | INTRAPROCEDURE PRN, Starting Fri | | PM PDT | | | | | 10/26/11 at 1406, Until 10/26/11 | | | | | | | at 1434 | | | | | | + +-------+ +------+---+---+ +---+---+ | | | +---+---+ + +-------+ +------+---+---+ | ondansetron (aka ZOFRAKANKSHA) | Given | 10/26/19 | 4 mg | | | | injection INTRAPROCEDURE PRN, | | 12 1:54 | | | | | Starting Sat10/26/11 at 1354, | | PM PDT | | | | | Until Sat10/26/11 at 1434 | | | | | | + +-------+ +------+---+---+ +---+---+ | | | +---+---+ + +-------+ +--------+---+---+ | propofol INTRAPROCEDURE PRN, | Given | 10/26/19 | 200 mg | | | | Starting Sat10/26/11 at 1109, | | 12 11:09 | | | | | Until Sat10/26/11 at 1434 | | AM PDT | | | | + +-------+ +--------+---+---+ +---+---+ | | | +---+---+ + +-------+ +-------+---+---+ | rocuronium (aka ZEMURON) | Given | 10/26/19 | 10 mg | | | | injection INTRAPROCEDURE PRN, | | 12 1:22 | | | | | Starting 10/26/11 at 1122, | | PM PDT | | | | | Until 10/26/11 at 1434, | | | | | | | Neuromuscular block | | | | | | + +-------+ +-------+---+---+ +-------+ +-------+---+---+ | Given | 10/26/19 | 10 mg | | | | | 12 12:35 | | | | | | PM PDT | | | | +-------+ +-------+---+---+ | Given | 10/26/19 | 30 mg | | | | | 12 11:22 | | | | | | AM PDT | | | | +-------+ +-------+---+---+ +---+---+ | | | +---+---+ + +-------+ +-------+---+---+ | SUCCINYLCHOLINE CHLORIDE 20 | Given | 10/26/19 | 80 mg | | | | MG/ML INJ (PROSED/RSI) | | 12 11:09 | | | | | INTRAPROCEDURE PRN, Starting Fri | | AM PDT | | | | | 10/26/11 at 1109, Until Sat10/26/11 | | | | | | | at 1434, Neuromuscular block | | | | | | + +-------+ +-------+---+---+ +---+---+ | | | +---+---+ documented in this encounter"
--- OUTSIDE RECORDS SUMMARY | ~2019-06-13 | XMS | Encounter Summary ---
Demographics + + + | Address | [address] | | | [place] [address] | + + + | Home Phone [...] | | + + +---------+ + | [place]) | ECON | Unknown | | | [place] | | | | + + +---------+ + Care Team Providers + +------+ + | Care Rags Laborer Name | Role | Phone | + [...] Description | +--------+--------+ + + + | 05/17/ | Refill | [facility] [place] | Eul[place], | Medication Refill | | 2014 | | PULMONARY [address] | Jenna George MD | | | | | [place], | | | | | | [place] [address] | | | | | | [phone] | | | +--------+--------+ + + + [...] [place] | | | | | | [address] | | | | | | | | +--------+---------+ + + + | 11/04/ | Office | Pulmonology | Sukhjinder, | | | 2019 | Visit | | Windy Aldrich, | | | | | | MD [address] | | | | | | [place], | | | | | | [place] [address] | | | | | | [phone] | | | | | | | | +--------+---------+ + + + documented as of this encounter Visit Diagnoses Not on filedocumented in this encounter"
--- OUTSIDE RECORDS SUMMARY | ~2019-06-13 | XMS | Encounter Summary ---
Demographics + + + | Address | [address] | | | [place] [address] | + + + | Home Phone | | + + + | Preferred Language | Unknown | + + + | Marital Status | | + + + | Yazidi Affiliation | 1041 | + + + | Race | Unknown | + + + | Ethnic Group | Unknown | + + + Author + + + | Author | [facility] | | | and [place] | + + + | Organization | [facility] | | | [...] Team Providers + +------+ + | Care Analysis Consultant Name | Role | Phone | + [...] | | Chronic | [place], | [address] | | | | | cough | Jenna B, | [place], | | | | | Procedures | MD [address] | [place] [address] | | | | | CT Chest w | [address] | Phone: | | | | | Contrast | [place], | [phone] | | | | | | [place] [address] | Fax: | | | | | | | [phone] | +--------+--------+ + + + + Reason [...] | | | | classified | [place] [address] | | | | | | Extrinsic | Phone: | | | | | | asthma, | [phone] | | | | | | unspecified | Fax: | | | | | | Cough | [phone] | | | | | | Procedures [...] | (Primary Dx); | | | | [place], | | Obstructive chronic | | | | [place] [address] | | bronchitis ([facility]); | | | | [phone] | | GERD | | | | [...] once daily. Instructions for Using a Nasal [place] To use the nasal spray properly, close [...] order to do the upper GI in [place]. documented in this encounter Progress Notes Jenna [...] not sit until nighttime. 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 March in 2011. 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 [employer] Social History Main Topics Smoking status: Former Smoker -- 0.7 packs/day for 40 years Types: Cigarettes Quit date: 05/06/2009 Smokeless tobacco: None Alcohol Use: No Drug Use: No Sexually Active: None Other Topics Concern None Social History Narrative Lives: in [place] With: her husbandGrew up: [place] previously lived in: [place] onlyExp osure to toxic chemicals: DDT on crops and in well water, [place] [facility] [place] [facility]Exposure to asbest os: noExposure to tuberculosis: [...] made to ensure accuracy; however, inadvertent computerized medical appointment scheduler errors may be pre sent. Electronically signed [...] [place] | | | | | | [id number] | | | | | | | | +--------+---------+ + + + | 11/04/ | Office | Pulmonology | Sukhjinder, | | | 2019 | Visit | | Windy Aldrich, | | | | | | MD [address] | | | | | | [place], | | | | | | [place] [address] | | | | | | [phone] | | | | | | | [...] + | MISCELLANEOUS LAB | | | [phone] | + +---------+ + + | MISCELANIOUS LAB | | | [phone] | + +---------+ + + CT Chest [...] + | MISCELLANEOUS LAB | | | [phone] | + +---------+ + + | MISCELANIOUS LAB | | | [phone] | + +---------+ + + documented in [...]
--- OUTSIDE RECORDS SUMMARY | ~2019-06-13 | XMS | Clinical Summary ---
Demographics + + + | Address | [address] | | | [place] [address] | + + + | Home Phone | | + + + | Preferred Language | Unknown | + + + | Marital Status | | + + + | Worship Affiliation | 1041 | + + + | Race | Unknown | + + + | Ethnic Group | Unknown | + + + Author + + + | Author | [facility] | | | and [place] | + + + | Organization | [facility] | | [...] Providers + +------+ + | Care Senior Nuclear Medicine Technologist Name | Role | Phone | + +------+ + | Mike Saucedo MD | PCP | | + +------+ + Allergies + + + + + + | Active Allergy | Reactions | Severity | Noted | Comments | | | | | Date | | + + + + + + | Alendronate | Other (See Comments) | Medium | 03/20/20 | | | | | | 18 | | + + + + + + | Sulfamethoxazole-Tri | Swelling | | 05/19/20 | | | methoprim | | | 19 | | + + + + + + | Ciprofloxacin | Sensitivity, Other | Medium | 11/30/19 | | [...] | + + + + + + Medications + + + +---------+------+------+-------+ | Medication [...] % | | 0 | | | Activ | | (METROCREAM) 0.75 % | topically Twice | | | | | e | | cream | daily as needed. | | | | | | + + + +---------+------+------+-------+ | acetaminophen | Take 2 tablets by | 120 | 0 | 12/2 | | Activ | | (TYLENOL) 325 mg | mouth every 4 hours | tablet | | 7/20 | | e | | tablet | as needed for Pain | | | 18 | | | | | (or fever >= 38.6 C | | | | | | | | (101.5 F)). | | | | | | + + + +---------+------+------+-------+ | albuterol 2.5 mg/3 | Take 1 ampule by | | 0 | | | Activ | | mL nebulizer | nebulization 2 times | | | | | e | | solution | daily. | | | | | | + + + +---------+------+------+-------+ | metoprolol | take 1 tablet by | | 1 | 09/19 | | Activ | | tartrate (LOPRESSOR) | mouth twice a day | | | 10/08 | | e | | 50 mg tablet | | | | 19 | | | + + + +---------+------+------+-------+ | aspirin 81 mg EC | Take 81 mg by mouth | | 0 | | | Activ | | tablet | Daily. | | | | | e | + + + +---------+------+------+-------+ | cholestyramine | Take 4 g by mouth 2 | | 0 | | | Activ | | light (QUESTRAN) 4 g | (two) times daily. | | | | | e | | packet | Mix powder in 2-3 | | | | | | | | ounces of fluid or | | | | | | | | applesauce. | | | | | | + + + +---------+------+------+-------+ | warfarin | Take 1 tablet by | | 0 | 01/19 | 01/19 | Activ | | (COUMADIN) 5 mg | mouth daily. | | | 02/07 | 01/08 | e | | tablet | | | | 19 | 20 | | + + + +---------+------+------+-------+ | INCRUSE ELLIPTA | inhale 1 puff by | 1 | 11 | 10/1 | | Activ | | 62.5 MCG/INH | mouth once daily | Inhaler | | 6/20 | | e | | inhalerIndications: | | | | 19 | | | | Chronic obstructive | | | | | | | | pulmonary disease, | | | | | | | | unspecified COPD | | | | | | | | type (HCC) | | | | | | | + + + +---------+------+------+-------+ | cephalexin | 3 times daily. | | 0 | 10/2 | | Activ | | (KEFLEX) 500 mg | | | | 5/20 | | e | | capsule | | | | 19 | | | + + + +---------+------+------+-------+ | omeprazole | take 1 capsule by | | 0 | 07/1 | | Activ | | (PRILOSEC) 20 mg | mouth once daily | | | 8/20 | | e | | capsule | | | | 19 | | | + + + +---------+------+------+-------+ Active Problems + + + | Problem | Noted Date | + + + | Paroxysmal atrial fibrillation | 08/27/2018 | + + + + + | Overview: Overview: | | Post op. | + + + + + | Closed fracture of hip | 07/12/2018 | + + + | History of cholecystectomy | 07/12/2018 | + + + | Gastro-esophageal reflux disease with esophagitis | 03/20/2018 | + + + | Moderate aortic regurgitation | 01/29/2018 | + + + | Right upper quadrant pain | 07/09/2017 | + + + | Atypical mycobacterial infection of lung | 05/31/2017 | + + + | Mild airflow obstruction on pulmonary function test | 02/19/2017 | + + + | Centrilobular emphysema | 02/19/2017 | + + + | Personal history of tobacco use, presenting hazards to health | 11/19/2016 | + + + | Interstitial lung disease | 11/19/2016 | + + + | Chronic obstructive pulmonary disease | 11/19/2016 | + + + | Chronic allergic rhinitis | 11/19/2016 | + + + | Rheumatic aortic valve insufficiency | 10/03/2015 | + + + | Basal cell carcinoma of cheek | 02/06/2015 | + + + + + | Overview: Last Assessment & Plan: | | Basal Cell CA, right cheek, 2013. | + + + + + | Carcinoma in situ of right breast | 02/06/2015 | + + + + + | Overview: Last Assessment & Plan: | | Breast CA, in situ, right lumpectomy 1997, Rads, no chemo. | + + + + + | PAD (peripheral artery disease) | 02/03/2015 | + + + + + | Overview: Last Assessment & Plan: | | Claudication, ernie symptomatic, bilaterally. | | TORSTEN, 02/28/2015: mild disease, lazara. | + + + + + | Bilateral carotid artery stenosis | 02/03/2015 | + + + + + | Overview: Last Assessment & Plan: Carotid stenosis, | | bilaterally, a symptomic. Denies any new visual disturbances, | | dysarthria, dysphasia, lateralizing signs or symptoms. Last | | carotid US, 02/18/2015: mild disease lazara. | + + + + + | History of breast cancer | 06/14/2014 | + + + | Bronchiectasis | 06/14/2014 | + + + | Pulmonary nodule | 06/14/2014 | + + + + + | Overview: 2.5 and 5.8 mm on the right on CT 04/2014 | | Stable 10/2014 with 2 new 2mm nodules | | Needs follow up 10/2015 | + + + + + | Chronic cough | 05/06/2014 | + + + | Obstructive chronic bronchitis | 05/06/2014 | + + + | GERD (gastroesophageal reflux disease) | 05/06/2014 | + + + | Gastroparesis | 05/22/2012 | + + + | Rheumatic heart disease | | + + + + + | Overview: With murmur | + + + +---+ | Rosacea | | + +---+ | Chronic rhinitis | | + +---+ | Carotid artery disease | | + +---+ + + | Overview: carotid US 2009 50-69% mid L ICA stenosis | + + + +---+ | Osteopenia | | + +---+ Encounters +--------+ + + + + | Date | Type | Specialty | Care Team | Description | +--------+ + + + + | 06/10/ | Telephone | Cardiology | Jacqueline Sanchez, | Medication Question | | 2019 | | | [facility] | (L_Arginine and Vit | | | | | | B12) | +--------+ + + + + | 06/03/ | Documentati | Pulmonology | Matt Saxena S, | Other (faxed | | 2019 | on | | [facility] | albuterol rx to | | | | | | medicare) | +--------+ + + + + | 05/28/ | Documentati | Pulmonology | Matt Saxena S, | Other (Faxed CT | | 2018 | on | | [facility] | order to [facility]) | +--------+ + + + + | 05/19/ | Office | Pulmonology | Sukhjinder, | Bronchiectasis | | 2018 | Visit | | Windy Aldrich, | without complication | | | | | MD | ([facility]) (Primary Dx); | | | | | | Mild airflow | | | | | | obstruction on | | | | | | pulmonary function | | | | | | test; Multiple | | | | | | pulmonary nodules; | | | | | | ILD (interstitial | | | | | | lung disease) ([facility]); | | | | | | Atypical | | | | | | mycobacterial | | | | | | infection of lung | | | | | | ([facility]); Personal | | | | | | history of tobacco | | | | | | use, presenting | | | | | | hazards to health | +--------+ + + + + | 05/06/ | Refill | Pulmonology | Sukhjinder, | Medication Refill | | 2019 | | | Windy Aldrich, | | | | | | MD | | +--------+ + + + + from Last 3 Months Immunizations + + + + | Name | Administration Dates | Next Due | + + + + | INFLUENZA 64 Y OR >, | 04/13/2016, 2015, 04/07/2014 | | | TRIVALENT HIGH-DOSE | | | + + + + | INFLUENZA PF 17 Y OR | 04/06/2014 | | | >,QUADRIVALENT | | | | RECOMBINANT | | | + + + + | INFLUENZA PF 17 Y OR | 05/20/2015, 04/06/2014 | | | >,TRIVALENT | | | | RECOMBINANT | | | + + + + | INFLUENZA PF 64 Y OR | 2018, 04/16/2017 | | | >,TRIVALENT (FLUAD) | | | + + + + | INFLUENZA PF | 03/27/2013 | | | TRIVALENT(PED/ADOL/A | | | | DULKranthi)KARINAKT | | | + + + + | INFLUENZA, E2S8-25, | 10/25/2009 | | | UNSPECIFIED | | | + + + + | INFLUENZA, | 05/31/2010, 03/24/2009, 04/28/2007 | | | UNSPECIFIED | | | | FORMULATION | | | + + + + | PNEUMOCOCCAL | 11/21/2016, 03/11/2015 | | | CONJUGATE 13-VALENT | | | | (PCV13) | | | + + + + | PNEUMOCOCCAL | 07/22/2010, 07/22/1992 | | | POLYSACCHARIDE | | | | 23-VALENT (PPSV23) | | | + + + + | TDAP, (ADOL/ADULT) | 11/21/2016, 07/22/1995 | | + + + + | TETANUS TOXOID | 07/22/1995 | | | ABSORBED, | | | | (ADOL/ADULT) | | | + + + + | ZOSTER, 1 DOSE | 12/27/2010, 07/22/2010 | | | (ZOSTAVAX) | | | + + + + [...] fracture | + + +------+ + | Heart [...] pulmonary fibrosis | + + +------+ + | Bipolar disorder | Sister | | | + + +------+ + | Anxiety [...] + + | Father | | | | + +------+ + + | Father | | | NM | | | | (Age | | | | | 90) | | + +------+ + + | Maternal Grandfather | | | | + +------+ + + | Maternal Grandmother | | | | + +------+ + + | Mother | | | | + +------+ + [...] 79) | | + +------+ + + | [...] + | Respiratory Rate | 16 | 07/17/2018 10:26 AM | | | | | PST [...] | | | | | [place], [place] | | | | | | [address] | | | | | | | | +--------+---------+ + + + | 11/04/ | Office | Pulmonology | Sukhjinder, | | | 2020 | Visit | | Windy Aldrich, | | | | | | [address] | | | | | | [place], | | | | | | [place] [address] | | | | | | [phone] | | | | | | | | +--------+---------+ + + + + + + + + | Health Maintenance | Due Date | Last Done | Comments | + + + + + | Vaccine: Zoster (2 | | 12/27/2010, 07/22/2010 | | | of 3) | 1 | | | + + + + + | Adult Annual | | | | | Wellness Visit | 5 | | | + + + + + | Statin Therapy | | | | | (optimal intensity) | 5 | | | + + + + + | Vaccine: | | 11/21/2016, 07/22/1995, | | | Dtap/Tdap/Td (2 - | 7 | 07/22/1995 | | | Td) | | | | + + + + + | Vaccine: | Completed | 11/21/2016, 03/11/2015, | | | Pneumococcal 65+ | | 07/22/2010, Additional history | | | | | exists | | + + + + + | Vaccine: Influenza | Completed | 04/15/2019, 04/21/2018, | | | | | 2018, Additional history | | | | | exists | | + + + + + Implants + +--------+--------+ +--------+--------+--------+ | Implanted | Type | Area | Manufacture | Device | Shelf | Model | | | | | r | | Expira | / | | | | | | Identi | tion | Serial | | | | | | fier | Date | / Lot | + +--------+--------+ +--------+--------+--------+ | Wenceslao Bone Palacos-R 40gm - | Generi | Right: | SMITA - | | 08/21/ | 00-111 | | [id number]: Qty: 2 | c | Femur | ZIMM | | 2021 | 2-140- | | on 07/13/2018 by Rodrigo, | | | | | | 01 / | | Abdi Guajardo MD at [facility] | | | | | | /[id number] | | [facility] | | | | | | 5[facility] | | CENTER | | | | | | | + +--------+--------+ +--------+--------+--------+ | Imp Hip Stem Cntrlzr 9mm - | Generi | Right: | JJHCS DEPUY | | 12/19/ | 1376-4 | | [id number]: Qty: 1 | c | Femur | ORTHO - | | 2020 | 7-000 | | on 07/13/2018 by Rodrigo, | | | DEPU | | | / | | Abdi Guajardo MD at [facility] | | | | | | /[id number] | | [facility] | | | | | | 2 | | CENTER | | | | | | | + +--------+--------+ +--------+--------+--------+ | Imp Hip Stem Bplr Slfctr | Generi | Right: | JJHCS DEPUY | | 02/18/ | 1035-4 | | 49x28 - [id number]: | c | | ORTHO - | | 2022 | 9-000 | | Qty: 1 on 07/13/2018 by | | Acetab | DEPU | | | / | | Abdi Wallace MD at | | ulum | | | | /[id number] | | [facility] | | | | | | 5 | | [facility] | | | | | | | + +--------+--------+ +--------+--------+--------+ | Imp Hip Fem Stem Sumt Sz3 - | Generi | Right: | JJS DEPUY | | 05/21/ | 1570-1 | | [id number]: Qty: 1 | c | Femur | ORTHO - | | 202 | 3-090 | | on 07/13/2018 by Rodrigo, | | | DEPU | | | / | | Abdi Guajardo MD at [facility] | | | | | | /[id number] | | [facility] | | | | | | [address] | | CENTER | | | | | | | + +--------+--------+ +--------+--------+--------+ | Imp Hip Fem Hd Artc 28 | Generi | Right: | JJHCS DEPUY | | 12/19/ | 1365-1 | | [id number] - | c | Femur | ORTHO - | | 3 | 1-000 | | [id number]: Qty: 1 | | | DEPU | | | / | | on 07/13/2018 by Rodrigo, | | | | | | /[id number] | | Abdi Guajardo MD at [facility] | | | | | | [address] | | [facility] | | | | | | | | CENTER | | | | | | | + +--------+--------+ +--------+--------+--------+ Results Not on filefrom Last 3 Months Insurance + +--------+ +--------+ +---------+--------+ | Payer | Benefi | Subscriber | Effect | Phone | Address | Type | | | t Plan | ID | silke | | | | | | / | | Dates | | | | | | Group | | | | | | + +--------+ +--------+ +---------+--------+ | CIGNA | CIGNA | [id number] | Effect | [phone] | | Indemn | | | MDCR | | silke | 1 | | ity | | | SUPPLE | | for | | | | | | MENT | | all | | | | | | SOLUTI | | dates | | | | | | ONS | | | | | | + +--------+ +--------+ +---------+--------+ | MEDICARE | MEDICA | [id number] | 03/22/20 | [phone] | | Medica | | | RE | | 04-Pre | 5 | | re | | | PART A | | sent | | | | | | AND B | | | | | | + +--------+ +--------+ +---------+--------+ | MEDICARE | MEDICA | [id number] | 11/20/19 | [phone] | | Medica | | | RE | | 05-Pre | 5 | | re | | | PART A | | sent | | | | | | AND B | | | | | | + +--------+ +--------+ +---------+--------+ | MEDICARE SUPPLEMENT | MEDICA | [id number] | 08/22/19 | [phone] | | Indemn | | OTHER | RE | | 17-Pre | 0 | | ity | | | SUPPLE | | sent | | | | | | MENT | | | | | | | | OTHER | | | | | | + +--------+ +--------+ +---------+--------+ + +--------+ +--------+ + + | Guarantor Name | Accoun | Relation to | Date | Phone | Billing Address | | | t Type | Patient | of | | | | | | | | | | + +--------+ +--------+ + + | Kalpesh,Shireen | Person | Self [birth year] | [address] | | [place] | al/Fam | | 1940 | [phone] | [place], [place] | | | zayda | | | 0 (Home) | [phone] | + +--------+ +--------+ + + | Kalpesh,Shireen | Person | Self [birth year] | [address] | | [place] | al/Fam | | 1940 | [phone] | [place], [place] | | | zayda | | | 0 (Home) | [phone] | + +--------+ +--------+ + + Advance Directives + + + + + | Type | Date Recorded | Patient | Explanation | | | | Him Tech | | + + + + + | Power of | | | | | Fitter'S Assistant | | | | + + + + + | Advance | 05/07/2014 | | | | Directive | 9:37 AM | | | + + + + + + + + + + | Code Status | Date | Date | Comments | | | Activated | Inactivated | | + + + + + | Full Code | 07/12/2018 | 07/17/2018 | | | | 7:39 PM | 4:59 PM | | + + + + +
--- OUTSIDE RECORDS SUMMARY | ~2019-06-13 | XMS | Encounter Summary ---
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 | Role | Phone | + +------+ + | Mike Saucedo MD | PCP | | + +------+ + Reason for Referral Home Health Care (Routine) +--------+ + + + + + | Status | Reason | Specialty | Diagnoses / | Referred By | Referred To | | | | | Procedures | Contact | Contact | +--------+ + + + + + | Closed | Specialty | Home Health | Diagnoses | Sona, | Prov Hh | | | Services | Services | Closed | Matti | [place] | | | Required | | fracture of | GIL [place] | [address] | | | | | right hip, | [address] [place] | | | | | initial | [place] | [place], [place] | | | | | encounter | [place] | [address] | | | | | ([facility]) | [id number] | Phone: | | | | | | Phone: | [phone] | | | | | | [phone] | Fax: | | | | | | Fax: | [phone] | | | | | | [phone] | | +--------+ + + + + [...] + + | 07/12/ | Hospital | [facility] | Nav Denson MD | Closed fracture of | | 2018 - | Encounter | [facility] | [address] | right hip, initial | | | | [address] [place] | [place] | encounter ([facility]) | | 07/17/ | | [place] [address] | [id number] | (Primary Dx); Closed | | 2017 | | [phone] | | fracture of neck of | | | | | | right femur, | | | | | | initial encounter | | | | | | (HCC); | | | | | | Bronchiectasis | | | | | | without complication | | | | | | ([facility]); Rheumatic | | | | | | aortic valve | | | | | | insufficiency; | | | | | | Atrial fibrillation | | | | | | with RVR (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) | +--------+ + + + + Social [...] + + + | Blood Pressure | 119/56 | 07/17/2018 7:56 AM | | | | | PST | | + + + + + | Pulse | 70 | 07/17/2018 10:26 AM | | | | | PST | | + + + + + | Temperature | 37 C (98.6 F) | 07/17/2018 7:56 AM | | | | | PST | | + + + + + | Respiratory Rate | 16 | 07/17/2018 10:26 AM | | | | | PST | | + + + + + | Oxygen Saturation | 98% | 07/17/2018 10:26 AM | | | | | PST | | + + + + + | Inhaled Oxygen | - | - | | | Concentration | | | | + + + + + | Weight | 63 kg (139 lb) | 07/13/2018 12:43 PM | | | | | PST | | + + + + + | Height | 165.1 cm (5' 5") | 07/13/2018 12:43 PM | | | | | PST | | + + + + + | Body Mass Index | 23.13 | 07/13/2018 12:43 PM | | | | | PST [...] + + documented as of this encounter Discharge Summaries Mahesh Bruce MD - 07/17/2018 12:52 PM PST [facility] DISCHARGE SUMMARY Pt. Name/Age/: Shireen Martinez 78 y.o. 1940 Date of Admission: 07/12/2018 Date of Discharge: 07/17/2018 Admitting Physician: Nav Denson MD Primary Care Provider: Mike Saucedo MD Discharging Physician: Mahesh Bruce MD DISCHARGE DIAGNOSES: 1.Closed fracture of the Left hip 2. Paroxysmal atrial fibrillation with RVR 3.Tropnin elevation(peak of 0.32 with abnormal being greater than 0.06) associated with atr ial fib; most likely demand ischemia vs other etiology 4.COPD 5. GERD DISCHARGE MEDICATIONS: Discharge Medications New Medications Details acetaminophen 325 mg tablet Take 2 tablets by mouth every 4 hours as needed for Pain (or fever >= 38.6 C (101.5 F)). aka: TYLENOL aspirin 325 mg tablet Take 1 tablet by mouth Daily. metoprolol tartrate 50 mg tablet Take 1 tablet by mouth 2 times daily. aka: LOPRESSOR metoprolol tartrate 50 mg tablet Take 1 tablet by mouth 2 times daily. aka: LOPRESSOR polyethylene glycol packet Take 1 diluted packet by mouth Daily as needed for Constipation. aka: MIRALAX traMADol 50 mg tablet Take 1-2 tablets by mouth every 6 hours as needed for Pain (not relieved by acetaminophen) . aka: ULTRAM Unchanged Medications Details ACAPELLA [facility] Dx: 494.0 NIGEL: 99 months Use as directed twice daily. CALCIUM 1000 + D PO Take 1 tablet by mouth Daily. domperidone 10 mg capsule Take 10 mg by mouth 4 times daily (before meals and nightly). metroNIDAZOLE 0.75 % cream Apply 0.75 % topically Twice daily as needed. aka: METROCREAM omeprazole 20 mg capsule Take 20 mg by mouth every morning (before breakfast). aka: priLOSEC SPIRIVA HANDIHALER 18 mcg inhalation capsule Generic drug: tiotropium INHALE CONTENT OF ONE CAPSULE BY MOUTH ONCE DAILY DISCHARGE INSTRUCTIONS: Follow-up Information Mike Saucedo MD. Specialty: Family Medicine Why: call for appointment in 7-10 days Contact information: [address] [place] [id number] Abdi [place] MD. Specialty: Orthopedic Surgery Contact information: [address] [facility] [id number] RESULTS: Results for SHIREEN MARTINEZ ( ) as of 07/17/2018 12:55 Ref. Range 07/15/2018 13:02 07/15/2018 17:59 07/15/2018 23:55 07/16/2018 04:11 Troponin I Latest Ref Range: <0.06 ng/mL 0.32 (H) 0.25 (H) 0.23 (H) 0.22 (H) Results for SHIREEN MARTINEZ ( ) as of 07/17/2018 12:55 Ref. Range 07/16/2018 04:11 TSH Latest Ref Range: 0.45 - 5.33 uIU/mL 1.71 Shireen Martinez ECHO Complete Order# [id number] Reading physician: Junito Ramirez MD Ordering physician: Mahesh Bruce MD Study date: 09/16/17 PACS Images Show images for ECHO Complete Conclusion 1. Mild biatrial dilatation. 2. Normal left ventricular size, wall thickness and motion. Preserved left ventricular sy stolic function. LVEF is 70-75%. 3. Grade 1 left ventricular diastolic dysfunction. 4. 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 There is aortic valve sclerosis without significant aortic valve stenos is. There is a mild to moderate central aortic valve insufficiency. 5. Mildly thickened and calcified mitral valve with the trace mitral valve regurgitation. 6. Mild mitral annular calcification. 7. Mild pulmonary hypertension with a peak systolic pressure of 45-50 mmHg. 8. Normal IVC with normal respiratory collapse. Results for SHIREEN MARTINEZ ( ) as of 07/17/2018 12:55 Ref. Range 07/17/2018 06:23 WBC Latest Ref Range: 4.0 - 11.0 K/uL 9.9 RBC COUNT Latest Ref Range: 3.70 - 5.20 M/uL 3.06 (L) Hgb Latest Ref Range: 11.5 - 16.0 g/dL 8.9 (L) Hct, Final Latest Ref Range: 34.0 - 47.0 % 28.0 (L) MCV Latest Ref Range: 83.0 - 101.0 fL 91.5 MCH Latest Ref Range: 28.0 - 35.0 pg 29.1 MCHC Latest Ref Range: 32.0 - 36.0 g/dL 31.8 (L) RDW-SD Latest Ref Range: 35.1 - 46.3 fL 46.5 (H) RDW-CV Latest Ref Range: <15.0 % 13.8 Platelet Count Latest Ref Range: 140 - 440 K/uL 312 Results for SHIREEN MARTINEZ ( ) as of 07/17/2018 12:55 Ref. Range 07/17/2018 06:23 Na Latest Ref Range: 136 - 149 mmol/L 135 (L) K Latest Ref Range: 3.5 - 5.1 mmol/L 3.4 (L) Chloride Latest Ref Range: 98 - 109 mmol/L 100 Carbon dioxide Latest Ref Range: 24 - 31 mmol/L 26 Anion Gap Latest Ref Range: 3 - 16 mmol/L 9 Glucose Latest Ref Range: 70 - 109 mg/dL 99 BUN Latest Ref Range: 7 - 18 mg/dL 12 Creatinine Latest Ref Range: 0.60 - 1.30 mg/dL 0.68 BUN/Creatinine Ratio Unknown 17.6 EGFR IF NOT Latest Ref Range: >=60 mL/min/1.73m2 >60 Calcium Latest Ref Range: 8.3 - 10.5 mg/dL 8.3 Results for SHIREEN MARTINEZ ( ) as of 07/17/2018 12:55 Ref. Range 07/13/2018 05:36 Color, UA Latest Ref Range: Light Yellow, Yellow, Straw Yellow Clarity, UA Latest Ref Range: Clear Clear Specific [place] Latest Ref Range: 1.001 - 1.030 1.018 pH, Urine Latest Ref Range: 5.0 - 8.0 5.0 Glucose, UA Latest Ref Range: Negative Negative Ketones, UA Latest Ref Range: Negative Negative Protein, UA Latest Ref Range: Negative Negative Blood, UA Latest Ref Range: Negative Moderate (A) Bilirubin, UA Latest Ref Range: Negative Negative Nitrite, UA Latest Ref Range: Negative Negative Urobilinogen, Urine Latest Ref Range: 0.2 mg/dL, 1.0 mg/dL, Negative Negative Leukocyte esterase, UA Latest Ref Range: Negative Trace (A) WBC UA Latest Ref Range: 0 - 2 /HPF 10-15 (A) RBC UA Latest Ref Range: 0 - 2 /HPF 5-10 (A) Squamous epithelial, UA Latest Ref Range: 0 - 2 /LPF 0-2 BACTERIA UA Latest Ref Range: Negative /HPF Negative URINE COMMENT Unknown Urine Culture Not... HOSPITAL COURSE: Please refer to the H&P for full details. In short this 73-year-old female is treated COPD and pulmonary fibrosis fell on the day of admission with a left neck fracture. She underwe nt ORIF of her fracture on the first hospital day and initially did well in the postoperativ e period. On 07/15 she was noted to have a rapid heart rate was found to have atrial fibril lation with RVR rates to 140. This was treated with IV diltiazem with slowing of her rates into the low 100s and then inversion oral diltiazem. The patient had serial troponins with a initial value 0.32 which fell to 0.22 on serial checks. She had no previous history of ex ertional angina or previous known ischemic heart disease and this was felt most likely to be demand ischemia associated with RVR (rapid rate was noted with initial vital sign assessmen t in the a.m.). Did discuss with her the option of stress testing 3 days postoperatively ve rsus conservative follow-up and recommended conservative follow-up without a previous histo ry or further problems with chest discomfort. I did discuss with her symptoms of exertional angina. I elected to switch her to metoprolol 50 mg twice daily in lieu of diltiazem. Ech ocardiography was obtained which showed normal left ventricular function with mild to modera te central aortic valve insufficiency and mild pulmonary hypertension. Her TSH was normal. I advised her that her PCP may wish to refer her to outpatient cardiology and certainly thi s would be appropriate especially she had further symptoms. We discussed the option of anticoagulation and on review her chads 2vasc score is at least 3 or 3.2% yearly risk for stroke and would be 4.8 % if an additional point was given for isc hemic disease. She has had previous atrial fibrillation associated with Parker fundoplicati on about 10 years ago. I recommended that she be placed on anticoagulants and unfortunately her monthly co-pay for the novel oral anticoagulants would be $150 per month for each of th adair agents. We discussed Coumadin as an option. She elected to home and change her Medicar e part D plan which she states is the enrollment period currently. She is going to shop for plan will cover the novel agents. He is to see her PCP in 7-10 days to discuss further the option of NOAC's. In the interim we'll treat her with aspirin 325 mg daily which is a prop hylaxis dose for DVT recommended by orthopedics. PHYSICAL EXAM: Temp: 37 C (98.6 F), Pulse: 70, Resp: 16, BP: 119/56, SpO2 98 % on room air at flow rat e 1L/min Temp Min: 35.7 C (96.3 F) Max: 38.4 C (101.2 F) Weight: 63 kg (139 lb) Patient seen and examined by me on discharge day Greater than 30 minutes were spent on discharge and coordination of post-hospital care. Electronically signed by: Mahesh Bruce MD, 07/17/2018 12:52 [facility] Portions of this chart may have been created with Floodlight voice recognition software. Occasi onal wrong-word or sound-alike substitutions may have occurred due to the inherent israel itations of voice recognition software. Please read the chart carefully and recognize, using context, where these substitutions have occurred documented in this encounter Discharge Instructions Instructions Mahesh Bruce MD - 07/17/2018Check for medicare part D plans that include ap ixaban(eliqus), rivaroxiban(xarelto), and pradaxa(dabigatran) Medication Instructions: Do not exceed 4,000 mg of acetaminophen (Tylenol) per day. Hydrocodone-acetaminophen ([place] ) and Oxycodone-acetaminophen (Percocet) have 325 mg acetaminophen per tablet. Regular stre ngth acetaminophen is 325 mg per tablet. Extra strength has 500 mg per tablet. While you are taking the blood thinner (aspirin 325 mg daily), please do not take any NSAID s (additional aspirin, ibuprofen, naproxen, Motrin, Advil, Aleve, etc.) These can increase your risk of bleeding. Watch for signs of bleeding: Easy bruising Bleeding from the gums Vomiting something that looks like coffee grounds Dark tarry stool Call the doctor if you experience any of these. Watch for signs of blood clots: DVT: hard, hot, hurt, red in back of calf PE or DE: sudden chest pain or trouble breathing Stroke: trouble thinking or weakness on one side of body Call 911 if you experience any of these symptoms. Do not consume alcohol while taking prescription pain medications. For constipation: While you are taking opioid pain medications (hydrocodone and/or oxycodone), continue to ta ke docusate and senna twice daily. This will both help you have a bowel movement and help t he stool stay soft and dgon-pc-gdoe. Remember to drink plenty of fluids and fiber-containin g foods. If you do not have a bowel movement within two days of returning home, add milk of magnesi a 30 mL once each night and/or Miralax one capful (17 grams) dissolved in half a cup of wate r once daily for 3 days. These are available [id number] at any drugstore. If you are still constipated 3 days after discharge, contact the doctor's office. documented in this encounter Medications at Time of Discharge [...] + + | aspirin 325 mg | take 1 tablet by | | 0 | 07/17/20 | | | tablet | mouth once daily | | | 18 | 9 | + [...] documented as of this encounter Progress Notes Matti Magallanes PA-C - 07/17/2018 1:00 PM PSTFormatting of this note might be differe nt from the original. Name:Shireen Martinez Todays Date: 07/17/2018 SUBJECTIVE: Stable. Notes mild discomfort at the right hip. OBJECTIVE: Comfortable lying in bed and in no acute distress. Aqua cell bandage is clean dry and inta ct at the right anterior hip. Notes of a complication or infection. No hematoma or seroma. Skin is warm and dry. Neurovascularly intact at the right hip. Vitals with Comments 07/16/2018 07/17/2018 07/17/2018 07/17/2018 SYSTOLIC - 141 119 - DIASTOLIC - 65 56 - Pulse 71 80 81 70 Temp - 98.8 98.6 - Resp 16 16 16 16 Weight - - - - Height - - - - SPO2 92 94 93 98 SPO2 Comments - - - - BMI - - - - Pain Score - - - - Pain Edu? - - - - I/O last 3 completed shifts: In: 2320 [P.O.:2320] Out: - Vitals: 07/16/18 2112 07/17/18 0350 07/17/18 0756 07/17/18 1026 BP: 141/65 119/56 Pulse: 71 80 81 70 Resp: 16 16 16 16 Temp: 37.1 C (98.8 F) 37 C (98.6 F) TempSrc: Oral Oral SpO2: 92% 94% 93% 98% Weight: Height: Recent Results (from the past 24 hour(s)) Basic Metabolic Panel Collection Time: 07/17/18 6:23 Result Value Ref Range Na 135 (L) 136 - 149 mmol/L K 3.4 (L) 3.5 - 5.1 mmol/L Cl 100 98 - 109 mmol/L CO2 26 24 - 31 mmol/L Anion Gap 9 3 - 16 mmol/L Glucose 99 70 - 109 mg/dL BUN 12 7 - 18 mg/dL Creatinine 0.68 0.60 - 1.30 mg/dL eGFR if not >60 >=60 mL/min/1.73m2 Ca 8.3 8.3 - 10.5 mg/dL BUN/Creatinine Ratio 17.6 CBC no Differential Collection Time: 07/17/18 6:23 Result Value Ref Range WBC 9.9 4.0 - 11.0 K/uL RBC 3.06 (L) 3.70 - 5.20 M/uL Hgb 8.9 (L) 11.5 - 16.0 g/dL Hct 28.0 (L) 34.0 - 47.0 % MCV 91.5 83.0 - 101.0 fL MCH 29.1 28.0 - 35.0 pg MCHC 31.8 (L) 32.0 - 36.0 g/dL RDW-CV 13.8 <15.0 % RDW-SD 46.5 (H) 35.1 - 46.3 fL Platelet Count 312 140 - 440 K/uL MPV 9.5 6.5 - 12.4 fL nRBC 0 0 - 2 per 100 WBC's NRBC ABS 0.00 0.00 - 0.01 K/uL Scheduled Meds: albuterol-ipratropium 3 mL Nebulization RT TID albuterol-ipratropium enoxaparin 60 mg Subcutaneous 2 times per day metoprolol tartrate 50 mg Oral BID pantoprazole 40 mg Oral QAM AC potassium chloride 20 mEq Oral Q2H Continuous Infusions: PRN Meds:.acetaminophen, albuterol-ipratropium, aluminum & magnesium hydroxide-simethicone, bisacodyl, docusate sodium, magnesium hydroxide, melatonin, ondansetron, ondansetron, oxyCO DONE, polyethylene glycol, prochlorperazine, senna ASSESSMENT/PLAN: 1. Right itzel-hip arthroplasty A. patient is doing quite well in her recovery from right hemiarthroplasty. She can be fu ll weightbearing on the right hip. Aqua cell bandage intact at the right hip and can be rem ariane in about 6 days. I would like to see her back in my office in about one week for evalu ation and anticipated staple removal. Discharge when medically stable per hospitalist team. B. Patient is advised that if they have any questions, comments or concerns to contact our office. Electronically signed by: Matti Magallanes PA-C 07/17/2018 13:00 This note was dictated using the Floodlight voice recognition system. Minor errors in grammar may have occurred Matti Mcfadden PA-C - 07/16/2018 7:12 PM PSTFormatting of this note might be different from the orig inal. Name:Shireen Martinez [place] Date: 07/16/2018 SUBJECTIVE: Stable. Mild discomfort at right hip. Nerve like pain OBJECTIVE: Comfortable laying in bed and in no acute distress. Bulky dressing clean and dry at right hip. Removed bandages and incision site healing well. No evidence of any complication or i nfection. Incision site cleaned w/ hydrogen peroxide and betadine. Dressed w/ aquacell band age. No hematoma or seroma. Vitals with Comments 07/16/2018 07/16/2018 07/16/2018 07/16/2018 SYSTOLIC 131 128 132 141 DIASTOLIC 64 58 62 63 Pulse 78 88 81 88 Temp 99 - 101.2 96.3 Resp 18 - 18 - Weight - - - - Height - - - - SPO2 91 - 94 92 SPO2 Comments - - - - BMI - - - - Pain Score - - - - Pain Edu? - - - - I/O last 3 completed shifts: In: 2840 [P.O.:2840] Out: - Vitals: 07/16/18 1140 07/16/18 1251 07/16/18 1513 07/16/18 1624 BP: 131/64 128/58 132/62 141/63 Pulse: 78 88 81 88 Resp: 18 Temp: 37.2 C (99 F) (!) 38.4 C (101.2 F) 35.7 C (96.3 F) TempSrc: Oral Oral Oral SpO2: 91% 94% 92% Weight: Height: Recent Results (from the past 24 hour(s)) Troponin I Collection Time: 07/15/18 23:55 Result Value Ref Range Troponin I 0.23 (H) <0.06 ng/mL Troponin I Collection Time: 07/16/18 4:11 Result Value Ref Range Troponin I 0.22 (H) <0.06 ng/mL TSH Collection Time: 07/16/18 4:11 Result Value Ref Range TSH 1.71 0.45 - 5.33 uIU/mL Extra Lavender Top Tube Collection Time: 07/16/18 4:11 Result Value Ref Range Extra Lavender Top Tube Done Extra Green Top Tube Collection Time: 07/16/18 4:11 Result Value Ref Range Extra Green Top Tube Done ECHO Complete Collection Time: 07/16/18 8:10 Result Value Ref Range Patient Weight (lbs) 139 Patient Height 5'5" LVIDd 4.26 cm FS 26 % LA volume 85.44 mL Ascending aorta 3.76 cm Aortic arch 3.39 cm AV regurgitation pressure 1/2 time 405.3 msec AV mean gradient 7.36 mmHg MV mean gradient 3.3 mmHg MV Area by P 1/2 method 2.97 cm2 IVRT 96.89 msec LVOT peak holli 114.71 cm/s LVOT peak VTI 27.09 cm AV peak holli 185.6 cm/s AV VTI 43.08 cm AV peak gradient 13.78 mmHg MV peak gradient 7.44 mmHg MV Pressure 1/2 time 74.03 msec LA Volume Index 51 mL/m2 AV LVOT Peak Gradient 5.26 mmHg AV LVOT Mean Gradient 2.93 mmHg TR Peak Gradient 41 mmHg TR Velocity 318.67 cm LV Diastolic Length 4C 6.27 cm LV Pan's Biplane EF 70 % LV ED Volume (Pan's) 80.7 ml LV ED Volume Index 48 ml/m2 LV ES Volume 24.86 ml LVOT Mean Velocity 80.71 cm/s MV E' Septal Velocity 8 cm/s MV Deceleration Cidra 534.07 cm/s2 MV Deceleration Time 255.28 msec MV E/A Ratio 1.02 MV Mean Velocity 85.8 cm/s MV Peak A-Wave 133.79 cm/s MV Peak E-Wave 136.34 cm/s AV Deceleration Time 1,397.58 msec AV Mean Velocity 128.34 cm/s LA/Aorta Ratio 1.26 MV E/E SEPTAL 17.04 LA Major 0.4308 cm LV ES Volume Index 15 ml/m2 Aortic Root Diameter 3.64 cm IVS Diastolic Thickness MM 0.98 cm LVPW Diastolic Thickness MM 0.93 cm IVS Systolic Thickness MM 1.05 cm LV Systolic Diameter MM 3.16 cm LVPW Systolic Thickness MM 1.25 cm AV Cusp Seperation MM 1.84 cm LA Systolic Diameter MM 4.6 cm TAPSE 1.8 cm LVEF-TTE TRANSTHORACIC ECHO 70 % RA PRESSURE 3 mmHg RVSP Estimated 44 mmHg Scheduled Meds: albuterol-ipratropium 3 mL Nebulization RT TID enoxaparin 60 mg Subcutaneous 2 times per day metoprolol tartrate 50 mg Oral BID pantoprazole 40 mg Oral QAM AC Continuous Infusions: PRN Meds:.acetaminophen, albuterol-ipratropium, aluminum & magnesium hydroxide-simethicone, bisacodyl, docusate sodium, magnesium hydroxide, melatonin, ondansetron, ondansetron, oxyCO DONE, polyethylene glycol, prochlorperazine, senna ASSESSMENT/PLAN: 1.Right hip hemiarthroplasty A. Doing quite well at right hip. Being evaluated by hospitalist team for Afib. Will disc harge once medically stable per hospitalist team. Bandages changed today. B. Patient is advised that if they have any questions, comments or concerns to contact our office. Electronically signed by: Matti Magallanes PA-C 07/16/2018 19:12 This note was dictated using the Floodlight voice recognition system. Minor errors in grammar may have occurred Mahesh Holm MD - 07/16/2018 5:11 PM PST [facility] Hospitalist Progress Note Shireen Martinez is a 78 y.o. female ASSESSMENT and PLAN: Active Hospital Problems *Closed fracture of hip Paroxysmal atrial fibrillation with RVR Patient converted at 9 PM last night to sinus rhythm. Her troponin did rise to 0.32 and is falling. She reports no history of exertional chest tightness or discomfort prior to admis lanie. Discussed the difference between coronary disease and demand ischemia early with rate s of 140 both possibilities and stress testing would be required to stratify risk. About a history of exertional chest discomfort I do not feel strongly about stress testing at this p oint. I did advise her that certainly placement of stents and aggressive anticoagulation as sociated with procedures could increase the risk of bleeding within her surgical site. She is scheduled with her PCP to see a pen maker in the [facility] in December and advised her th at this could be moved forward such that in 6-12 weeks she could be assessed to determine wh ether stress testing, etc. would be appropriate. The interim I am going to recommend that we use of metoprolol in lieu of the diltiazem and she was given 25 mg 3 times daily which sh damon is currently tolerating. This evening we'll convert to 50 mg twice daily. She will be pl aced on low-dose aspirin. We discussed the options of Coumadin versus NOAC's. The patient's [id number] score is 3-4 dependent upon whether or not she receives appointment for ischemic heart disease. I've adv ised her risk is 3.2-4.8% per year based upon this. The cost of NOAC's or her insurance is $150 per month for each of the 3 agents. We discussed Coumadin as an option and her prefere nce is to go home and change her Medicare part D plan which she states she has until July to do. In the interim I will place her on aspirin daily at 325 mg per orthopedics recommen dation. Elevated troponin associated with rapid A. fib This is either demand ischemia versus artery disease. She is not having history of exertio nal chest pains do not have a good time frame for the duration of her atrial fibrillation at rates of up to 140. We discussed options of stress testing which was offered and discussed more conservative approach of initiation of beta blockade and aspirin versus NOAC's with ou tpatient cardiology referral through her PCP. The latter approach will be undertaken. SUBJECTIVE: No reports of chest pain, nausea, or dyspnea. VITALS: Temp: 35.7 C (96.3 F), Pulse: 88, Resp: 18, BP: 141/63, SpO2 92 % on room air at flow r ate 1L/min Temp Min: 35.7 C (96.3 F) Max: 38.4 C (101.2 F) Weight: 63 kg (139 lb) Intake/Output Summary (Last 24 hours) at 07/16/18 1712 Last data filed at 07/16/18 1300 Gross per 24 hour Intake 1400 ml Output 0 ml Net 1400 ml PHYSICAL EXAM: Cardiovascular: Regular rate and rhythm at 84 at the time of my exam Respiratory: Clear bilaterally Abdomen: Without tenderness Extremities: without edema DIAGNOSTIC STUDIES: Available data and images were reviewed personally. Significant results and findings are a ddressed here or in the Assessment and Plan. Lab Results Component Value Date HGB 9.5 (L) 07/15/2018 HCT 30.0 (L) 07/15/2018 PLT 270 07/15/2018 WBC 13.1 (H) 07/15/2018 Lab Results Component Value Date NA 134 (L) 07/13/2018 K 3.5 07/13/2018 CL 102 07/13/2018 CO2 24 07/13/2018 CREA 0.68 07/13/2018 BUN 9 07/13/2018 MG 1.9 07/13/2018 PHOS 3.0 07/14/2018 No results found for: POCGLU No results found for: POCGLU No results found. Total time of approximately 30 minutes was spent with the patient and/or patient's family, and/or on the patient's floor/unit, of which more than 50% was spent counseling and/or coord ination the patient's care as outlined above. Mahesh Bruce 07/16/2018 17:12 [facility] Portions of this chart may have been created with [employer] voice recognition software. Occasi onal wrong-word or sound-alike substitutions may have occurred due to the inherent [place] itations of voice recognition software. Please read the chart carefully and recognize, using context, where these substitutions have occurred Abdi Rodriguez MD - 07/15/2018 11:22 AM PST Shireen Martinez SUBJECTIVE: Dr. Mahesh Bruce's note and help appreciated. OBJECTIVE: Vitals with Comments 07/15/2018 07/15/2018 07/15/201807/1507/15/2018 SYSTOLIC 118 111 - - DIASTOLIC 59 57 - - Pulse 97 97 122 137 Temp 97.2 97.7 - - Resp 16 16 16 - Weight - - - - Height - - - - SPO2 94 92 92 - SPO2 Comments - - - - BMI - - - - Pain Score - - - - Pain Edu? - - - - Intake/Output Summary (Last 24 hours) at 07/15/18 1122 Last data filed at 07/15/18 0600 Gross per 24 hour Intake 900 ml Output 0 ml Net 900 ml Recent Results (from the past 24 hour(s)) CBC no Differential Collection Time: 07/15/18 6:10 Result Value Ref Range WBC 13.1 (H) 4.0 - 11.0 K/uL RBC 3.28 (L) 3.70 - 5.20 M/uL Hgb 9.5 (L) 11.5 - 16.0 g/dL Hct 30.0 (L) 34.0 - 47.0 % MCV 91.5 83.0 - 101.0 fL MCH 29.0 28.0 - 35.0 pg MCHC 31.7 (L) 32.0 - 36.0 g/dL RDW-CV 13.9 <15.0 % RDW-SD 47.1 (H) 35.1 - 46.3 fL Platelet Count 270 140 - 440 K/uL MPV 9.5 6.5 - 12.4 fL nRBC 0 0 - 2 per 100 WBC's NRBC ABS 0.00 0.00 - 0.01 K/uL Extra Green Top Tube Collection Time: 07/15/18 6:10 Result Value Ref Range Extra Green Top Tube Done ECG 12 lead Collection Time: 07/15/18 9:18 Result Value Ref Range INTERPRETATION TEXT Not Confirmed Microbiology Results (72 hrs) No results found for the last 72 hours. Bandages dry. NV function intact to feet. Irregularly irregular heartbeat. ASSESSMENT: Stable. PLAN: Medical stabilization. Mobilize to tolerance. Abdi Wallace MD Mahesh Holm MD - 07/15/2018 10:25 AM PSTFormatting of this note might be differen t from the original. [facility]en Martinez is a 78 y.o. female ASSESSMENT and PLAN: Active Hospital Problems *Closed fracture of hip Paroxysmal atrial fibrillation with RVR Patient was noted to have a heart rate of 120-140 this morning and found to have atrial fib rillation. She reports that approximately 10 years ago she had a Parker fundoplication whic h was complicated by atrial fibrillation. That time she was treated with metoprolol but did not have known recurrence with the beta hellen subsequently discontinued. She received 15 mg of IV diltiazem and tolerated this well will start diltiazem 30 mg every 6 hours. She d oes have some coverage of medications and I'm going to start Lovenox full dose today and wor ry her pharmacy as to prefer coverage with respect to KHUSHI's. We'll check an echocardiogram to assess left atrial size and to look for valvular disease. SUBJECTIVE: She reported this a.m. she had a short period of indigestion-type discomfort which is res olved. He denied tightness in her chest per se, shortness of breath, or nausea. VITALS: Temp: 36.5 C (97.7 F), Pulse: 137, Resp: 16, BP: 111/57, SpO2 92 % on room air at flow rate 1L/min Temp Min: 36.2 C (97.2 F) Max: 37.2 C (99 F) Weight: 63 kg (139 lb) Intake/Output Summary (Last 24 hours) at 07/15/18 1026 Last data filed at 07/15/18 0600 Gross per 24 hour Intake 900 ml Output 475 ml Net 425 ml PHYSICAL EXAM: Cardiovascular: Irregular rate and rhythm at 128 at the time of my assessment Respiratory: Few basilar crackles diminished breath sounds overall consistent with her di agnosis of COPD Abdomen: Without tenderness Extremities: without edema DIAGNOSTIC STUDIES: Available data and images were reviewed personally. Significant results and findings are a ddressed here or in the Assessment and Plan. Lab Results Component Value Date HGB 9.5 (L) 07/15/2018 HCT 30.0 (L) 07/15/2018 PLT 270 07/15/2018 WBC 13.1 (H) 07/15/2018 Lab Results Component Value Date NA 134 (L) 07/13/2018 K 3.5 07/13/2018 CL 102 07/13/2018 CO2 24 07/13/2018 CREA 0.68 07/13/2018 BUN 9 07/13/2018 MG 1.9 07/13/2018 PHOS 3.0 07/14/2018 No results found for: POCGLU No results found for: POCGLU Xr Pelvis 1 Or 2 Vw Result Date: 07/13/2018 SINGLE AP PELVIS 07/13/2018 12:12 PM CLINICAL HISTORY: right hip hemiarthroplasty COMPARISO N: RADIOGRAPHS FROM THE PREVIOUS DAY FINDINGS: Proximal right femoral arthroplasty hardware is now present, and appears well-seated. No new fracture or subluxation is evident. The le ft hip joint, pubic symphysis and visible SI joints are maintained. Surgical clips project lateral to the right hip. IMPRESSION - 1. SATISFACTORY APPEARANCE STATUS POST RIGHT HIP HE MIARTHROPLASTY. Dictated and Signed by: Melvin Lott MD Electronically signed: 07/13/2018 1 :32 PM Fl C-arm Stats No Charge Result Date: 07/13/2018 This exam has been auto-finalized and the interpretation may exist elsewhere in the chart. Total time of approximately 30 minutes was spent with the patient and/or patient's family, and/or on the patient's floor/unit, of which more than 50% was spent counseling and/or coord ination the patient's care as outlined above. Mahesh Bruce 07/15/2018 10:26 [facility] Portions of this chart may have been created with [employer] voice recognition software. Occasi onal wrong-word or sound-alike substitutions may have occurred due to the inherent [place] itations of voice recognition software. Please read the chart carefully and recognize, using context, where these substitutions have occurred Helen Lao MD - 11:09 AM PST [facility] PROGRESS NOTE Patient: Shireen Martinez : 1940: Age: 78 y.o. MedRec: [id number] Admission date: 07/12/2018 Hospital day # : 2 Physician author: Helen Alves MD Today: 07/14/2018 Assessment and Hospital Course Active Hospital Problems Diagnosis Closed fracture of hip Resolved Hospital Problems Diagnosis No resolved problems to display. 78 yo F with history of , PAD, COPD, pulm fibrosis, left pelvic fracture, who presented w ith displaced R femoral neck fracture following a mechanical fall. Plan #R femoral neck fracture S/p hemiarthroplasty 07/[address] Wallace. Management per ortho team. Patient denies robby n today. Would prefer to just take tylenol for pain control if possible. Patient was able to mobilize today. # Stable. No e/o clinical decompensation. #COPD #Pulm fibrosis Continue respiratory therapy protocol. No e/o decompensation. #GERD Home PPI. #Chronic diarrhea Stable. Has outpatient GI follow up at [facility]. #Acute blood loss anemia Likely 2/2 surgery. No e/o ongoing bleeding. #Leukocytosis Mild increase in WBC noted. Likely stress response. Do not suspect infection currently. CTM . FEN: gen Ppx: per ortho Disposition: anticipate home with home health tomorrow Subjective CC: no complaints Patient doing well today, no complaints. Up and walking with therapy. Denies pain. Eager to go home tomorrow. ROS 12 point ROS was performed and was negative except as noted above. Exam Gen: WDWN, nad HEENT: MMM, neck supple CV: 3/6 systolic murmur, rrr Pulm: LCAB, no increased wob Abdominal: soft, nontender, nondistended, quiet bowel tones Extremities: well perfused, no edema, dressing in place Skin: warm, dry, no rashes Neuro: alert and oriented, CN intact, no focal deficits, can move all extremities Psych: normal mood and affect, pleasant Allergies: Allergies Allergen Reactions Alendronate Other (See Comments) Ciprofloxacin Sensitivity and Other (See Comments) Levofloxacin Other (See Comments) Increased heart rate, weakness Lisinopril Other (See Comments) Current Medications: Current Facility-Administered Medications Medication Dose Route Frequency Provider Last Rate Last Dose acetaminophen (TYLENOL) tablet 650 mg 650 mg Oral Q4H PRN Nav Denson MD 650 mg at 07/14/18 0748 albuterol-ipratropium 2.5-0.5 mg/3 mL nebulizer solution 3 mL 3 mL Nebulization RT TID Abdi Wallace MD 3 mL at 07/14/18 0902 albuterol-ipratropium 2.5-0.5 mg/3 mL nebulizer solution 3 mL 3 mL Nebulization RT Q4H PRN Nav Denson MD aluminum & magnesium hydroxide-simethicone (MAALOX PLUS REGULAR STRENGTH) 200-200-20 mg /5 mL suspension 30 mL 30 mL Oral Q6H PRN Matti Magallanes PA-C aspirin EC tablet 325 mg 325 mg Oral Daily Matti Magallanes PA-C 325 mg at 0633 bisacodyl (DULCOLAX) suppository 10 mg 10 mg Rectal Daily PRN Matti Magallanes PA-C ceFAZolin (ANCEF, KEFZOL) 100 mg/mL IV syringe 1 g 1 g Intravenous Q6H Matti headley PA-C docusate sodium (COLACE) capsule 100 mg 100 mg Oral BID PRN Matti Magallanes PA-C HYDROmorphone (DILAUDID) 1 mg/mL injection 0.4-0.8 mg 0.4-0.8 mg Intravenous Q2H PRN Yasmany Denson MD 0.4 mg at 07/13/18 0824 lactated ringers (LR) infusion Intravenous Continuous Helen Alves MD 50 mL/hr at 0533 [START ON 07/15/2018] magnesium hydroxide (MILK OF MAGNESIA) 400 mg/5 mL suspension 30 mL 30 mL Oral Nightly PRN Matti Magallanes PA-C melatonin tablet 3 mg 3 mg Oral Nightly PRN Matti Magallanes PA-C ondansetron (ZOFRAN ODT) disintegrating tablet 4 mg 4 mg Oral Q6H PRN Matti olguin PA-C ondansetron (ZOFRAN) injection 4 mg 4 mg Intravenous Q4H PRN Nav Denson MD 4 mg at 07/13/18 0825 oxyCODONE (ROXICODONE) tablet 2.5-10 mg 2.5-10 mg Oral Q3H PRN KRISTIN Williamson pantoprazole (PROTONIX) DR tablet 40 mg 40 mg Oral QAM AC Nav Denson MD 40 mg at 1 09/14/17 0633 polyethylene glycol (MIRALAX) powder 17 g 17 g Oral Daily PRN Matti Magallanes PA-C prochlorperazine tablet 5 mg 5 mg Oral Q6H PRN Matti Magallanes PA-C senna (SENOKOT) tablet 8.6 mg 8.6 mg Oral BID PRN Matti Magallanes PA-C Current Infusions: lactated ringers 50 mL/hr at 07/14/18 0533 Objective Data Point of care glucose No results for input(s): POCGLU in the last 168 hours. Labs last 24 hours Recent Results (from the past 24 hour(s)) Basic Metabolic Panel Collection Time: 07/13/18 15:08 Result Value Ref Range Na 134 (L) 136 - 149 mmol/L K 3.5 3.5 - 5.1 mmol/L Cl 102 98 - 109 mmol/L CO2 24 24 - 31 mmol/L Anion Gap 8 3 - 16 mmol/L Glucose 148 (H) 70 - 109 mg/dL BUN 9 7 - 18 mg/dL Creatinine 0.68 0.60 - 1.30 mg/dL eGFR if not >60 >=60 mL/min/1.73m2 Ca 8.1 (L) 8.3 - 10.5 mg/dL BUN/Creatinine Ratio 13.2 Phosphorus Collection Time: 07/14/18 6:26 Result Value Ref Range Phosphorus 3.0 2.5 - 4.6 mg/dL CBC no Differential Collection Time: 07/14/18 8:27 Result Value Ref Range WBC 12.8 (H) 4.0 - 11.0 K/uL RBC 3.17 (L) 3.70 - 5.20 M/uL Hgb 9.3 (L) 11.5 - 16.0 g/dL Hct 28.7 (L) 34.0 - 47.0 % MCV 90.5 83.0 - 101.0 fL MCH 29.3 28.0 - 35.0 pg MCHC 32.4 32.0 - 36.0 g/dL RDW-CV 14.1 <15.0 % RDW-SD 47.0 (H) 35.1 - 46.3 fL Platelet Count 213 140 - 440 K/uL MPV 10.0 6.5 - 12.4 fL Immature Platelet Fraction 2.3 0.9 - 11.2 % nRBC 0 0 - 2 per 100 WBC's NRBC ABS 0.00 0.00 - 0.01 K/uL Micro results (more choices using dot micro) Microbiology Results (72 hrs) No results found for the last 72 hours. Radiology results (more choices using dot risresults) Xr Pelvis 1 Or 2 Vw Result Date: 07/13/2018 SINGLE AP PELVIS 07/13/2018 12:12 PM CLINICAL HISTORY: right hip hemiarthroplasty COMPARISO N: RADIOGRAPHS FROM THE PREVIOUS DAY FINDINGS: Proximal right femoral arthroplasty hardware is now present, and appears well-seated. No new fracture or subluxation is evident. The le ft hip joint, pubic symphysis and visible SI joints are maintained. Surgical clips project lateral to the right hip. IMPRESSION - 1. SATISFACTORY APPEARANCE STATUS POST RIGHT HIP HE MIARTHROPLASTY. Dictated and Signed by: Melvin Lott MD Electronically signed: 07/13/2018 1 :32 PM Fl C-arm Stats No Charge Result Date: 07/13/2018 This exam has been auto-finalized and the interpretation may exist elsewhere in the chart. Xr Hip Right 2-3 Views Result Date: 07/14/2018 External films for comparison only No results will be in the chart. Vitals Ranges: Temp: [35.7 C (96.3 F)-37.1 C (98.8 F)] 36.6 C (97.9 F) Pulse: [69-100] 80 Resp: [8-18] 16 BP: (100-150)/(46-67) 130/58 Vitals: Temp: 36.6 C (97.9 F) BP: 130/58 Pulse: 80 Resp: 16 SpO2: 92 % SpO2 92 % on room air at flow rate 1L/min Helen Alves MD 07/14/2018 11:09 [facility] Matti Mcfadden PA -C - 07/14/2018 10:53 AM PST Name:Shireen Martinez Todays Date: 07/14/2018 SUBJECTIVE: Stable. No complaints. Denies any pain at the right hip as of yet OBJECTIVE: Comfortable sitting up in bed. Family at bedside. Continues are clean dry and intact at t he right hip. Skin is warm and dry sending incision site. No evidence of complication or i nfection. No evidence of any hematoma or seroma. She has normal plantar and dorsiflexion o f the right ankle without pain. Vitals with Comments 07/14/2018 07/14/2018 07/14/2018 07/14/2018 SYSTOLIC 111 130 - - DIASTOLIC 55 58 - - Pulse 75 83 80 80 Temp 96.9 97.9 - - Resp 16 16 16 16 Weight - - - - Height - - - - SPO2 95 97 95 92 SPO2 Comments - - - - BMI - - - - Pain Score - - - - Pain Edu? - - - - I/O last 3 completed shifts: In: 3437 [P.O.:150; I.V.:3287] Out: 1900 [Urine:1650; Blood:250] Vitals: 07/14/18 0352 07/14/18 0755 07/14/18 0901 07/14/18 0910 BP: 111/55 130/58 Pulse: 75 83 80 80 Resp: 16 16 16 16 Temp: 36.1 C (96.9 F) 36.6 C (97.9 F) TempSrc: Oral Oral SpO2: 95% 97% 95% 92% Weight: Height: Recent Results (from the past 24 hour(s)) Basic Metabolic Panel Collection Time: 07/13/18 15:08 Result Value Ref Range Na 134 (L) 136 - 149 mmol/L K 3.5 3.5 - 5.1 mmol/L Cl 102 98 - 109 mmol/L CO2 24 24 - 31 mmol/L Anion Gap 8 3 - 16 mmol/L Glucose 148 (H) 70 - 109 mg/dL BUN 9 7 - 18 mg/dL Creatinine 0.68 0.60 - 1.30 mg/dL eGFR if not >60 >=60 mL/min/1.73m2 Ca 8.1 (L) 8.3 - 10.5 mg/dL BUN/Creatinine Ratio 13.2 Phosphorus Collection Time: 07/14/18 6:26 Result Value Ref Range Phosphorus 3.0 2.5 - 4.6 mg/dL CBC no Differential Collection Time: 07/14/18 8:27 Result Value Ref Range WBC 12.8 (H) 4.0 - 11.0 K/uL RBC 3.17 (L) 3.70 - 5.20 M/uL Hgb 9.3 (L) 11.5 - 16.0 g/dL Hct 28.7 (L) 34.0 - 47.0 % MCV 90.5 83.0 - 101.0 fL MCH 29.3 28.0 - 35.0 pg MCHC 32.4 32.0 - 36.0 g/dL RDW-CV 14.1 <15.0 % RDW-SD 47.0 (H) 35.1 - 46.3 fL Platelet Count 213 140 - 440 K/uL MPV 10.0 6.5 - 12.4 fL Immature Platelet Fraction 2.3 0.9 - 11.2 % nRBC 0 0 - 2 per 100 WBC's NRBC ABS 0.00 0.00 - 0.01 K/uL Scheduled Meds: albuterol-ipratropium 3 mL Nebulization RT TID aspirin 325 mg Oral Daily ceFAZolin 1 g Intravenous Q6H pantoprazole 40 mg Oral QAM AC Continuous Infusions: lactated ringers 50 mL/hr at 07/14/18 0533 PRN Meds:.acetaminophen, albuterol-ipratropium, aluminum & magnesium hydroxide-simethicone, bisacodyl, docusate sodium, HYDROmorphone, [START ON 07/15/2018] magnesium hydroxide, ronnie onin, ondansetron, ondansetron, oxyCODONE, polyethylene glycol, prochlorperazine, senna ASSESSMENT/PLAN: 1. Right hip hemiarthroplasty, POD 1 A. healing appropriately on postoperative day 1. Mobilize to tolerance with cautious full weightbearing. Likely for discharge tomorrow to her home with home health to follow B. Patient is advised that if they have any questions, comments or concerns to contact our office. Electronically signed by: Matti Magallanes PA-C 07/14/2018 10:53 This note was dictated using the [employer] recognition system. Minor errors in grammar may have occurred Isi Valentine RRT - 07/14/2018 12:45 AM PSTPatient sleeps quietly, no distress apparent. Cannula in her nose, O2 at 1 lpm, Saturations at 95% HR 77. Helen Lao MD - 07/13/2018 5:52 PM PSTFormattevelyn g of this note might be different from the original. [place] [place] [facility] PROGRESS NOTE Patient: Shireen Martinez : 1940: Age: 78 y.o. MedRec: [id number] Admission date: 07/12/2018 Hospital day # : 1 Physician author: Helen Alves MD Today: 07/13/2018 Assessment and Hospital Course Active Hospital Problems Diagnosis Closed fracture of hip Resolved Hospital Problems Diagnosis No resolved problems to display. 78 yo F with history of , PAD, COPD, pulm fibrosis, left pelvic fracture, who presented w ith displaced R femoral neck fracture following a mechanical fall. Plan #F femoral neck fracture S/p hemiarthroplasty 07/[address] Wallace. Management per ortho team. # Stable. No e/o clinical decompensation. #COPD #Pulm fibrosis Continue respiratory therapy protocol. No e/o decompensation. #GERD Home PPI. #Chronic diarrhea Stable. Has outpatient GI follow up at [facility]. FEN: gen Ppx: per ortho Disposition: pending clinical course Subjective CC: no complaints Patient seen postop and was sleepy. Denied pain. ROS 12 point ROS was performed and was negative except as noted above. Exam Gen: WDWN, nad HEENT: MMM, neck supple CV: 3/6 systolic murmur, rrr Pulm: LCAB, no increased wob Abdominal: soft, nontender, nondistended, quiet bowel tones Extremities: surgical dressing in place Skin: warm, dry, no rashes Neuro: CN intact, no focal deficits Psych: normal mood and affect Allergies: Allergies Allergen Reactions Alendronate Other (See Comments) Ciprofloxacin Sensitivity and Other (See Comments) Lisinopril Other (See Comments) Levofloxacin Current Medications: Current Facility-Administered Medications Medication Dose Route Frequency Provider Last Rate Last Dose acetaminophen (TYLENOL) tablet 650 mg 650 mg Oral Q4H PRN Nav Denson MD albuterol-ipratropium 2.5-0.5 mg/3 mL nebulizer solution 3 mL 3 mL Nebulization RT Q4H PRN Nav Denson MD albuterol-ipratropium 2.5-0.5 mg/3 mL nebulizer solution 3 mL 3 mL Nebulization RT Q8H Nav Denson MD 3 mL at 07/13/18 1557 aluminum & magnesium hydroxide-simethicone (MAALOX PLUS REGULAR STRENGTH) 200-200-20 mg /5 mL suspension 30 mL 30 mL Oral Q6H PRN Matti Magallanes PA-C [START ON 07/14/2018] aspirin EC tablet 325 mg 325 mg Oral Daily Anabella Williamson A-Humble bisacodyl (DULCOLAX) suppository 10 mg 10 mg Rectal Daily PRN Matti Magallanes PA-C ceFAZolin (ANCEF, KEFZOL) 100 mg/mL IV syringe 1 g 1 g Intravenous Q6H Matti headley PA-C docusate sodium (COLACE) capsule 100 mg 100 mg Oral BID PRN Matti Magallanes PA-C HYDROmorphone (DILAUDID) 1 mg/mL injection 0.4-0.8 mg 0.4-0.8 mg Intravenous Q2H PRN Yasmany Denson MD 0.4 mg at 07/13/18 0824 lactated ringers (LR) infusion Intravenous Continuous Matti Magallanes PA-C 100 mL /hr at 07/13/18 1328 [START ON 07/15/2018] magnesium hydroxide (MILK OF MAGNESIA) 400 mg/5 mL suspension 30 mL 30 mL Oral Nightly PRN Matti Magallanes PA-C melatonin tablet 3 mg 3 mg Oral Nightly PRN Matti Magallanes PA-C ondansetron (ZOFRAN ODT) disintegrating tablet 4 mg 4 mg Oral Q6H PRN Matti olguin PA-C ondansetron (ZOFRAN) injection 4 mg 4 mg Intravenous Q4H PRN Nav Denson MD 4 mg at 07/13/18 0825 oxyCODONE (ROXICODONE) tablet 2.5-10 mg 2.5-10 mg Oral Q3H PRN KRISTIN Williamson pantoprazole (PROTONIX) DR tablet 40 mg 40 mg Oral QAM AC Nav Denson MD polyethylene glycol (MIRALAX) powder 17 g 17 g Oral Daily PRN Matti Magallanes PA-C prochlorperazine tablet 5 mg 5 mg Oral Q6H PRN Matti Magallanes PA-C senna (SENOKOT) tablet 8.6 mg 8.6 mg Oral BID PRN Matti Magallanes PA-C Current Infusions: lactated ringers 100 mL/hr at 07/13/18 1328 Objective Data Point of care glucose No results for input(s): POCGLU in the last 168 hours. Labs last 24 hours Recent Results (from the past 24 hour(s)) Urinalysis with Microscopic with Culture if Indicated Collection Time: 07/13/18 5:36 Result Value Ref Range Color Yellow Light Yellow, Yellow, Straw Clarity Clear Clear pH, Urine 5.0 5.0 - 8.0 Specific [place] 1.018 1.001 - 1.030 Protein, Urine Negative Negative Blood, Urine Moderate (A) Negative Glucose, Urine Negative Negative Ketones, Urine Negative Negative Bilirubin, Urine Negative Negative Nitrite, Urine Negative Negative Leukocyte Esterase, Urine Trace (A) Negative Urobilinogen, Urine Negative 0.2 mg/dL, 1.0 mg/dL, Negative WBC UA 10-15 (A) 0 - 2 /HPF RBC UA 5-10 (A) 0 - 2 /HPF SQUAMOUS EPITHELIAL UA 0-2 0 - 2 /LPF BACTERIA UA Negative Negative /HPF URINE COMMENT Urine Culture Not Indicated Basic Metabolic Panel Collection Time: 07/13/18 6:07 Result Value Ref Range Na 137 136 - 149 mmol/L K 3.5 3.5 - 5.1 mmol/L Cl 102 98 - 109 mmol/L CO2 26 24 - 31 mmol/L Anion Gap 9 3 - 16 mmol/L Glucose 118 (H) 70 - 109 mg/dL BUN 9 7 - 18 mg/dL Creatinine 0.56 (L) 0.60 - 1.30 mg/dL eGFR if not >60 >=60 mL/min/1.73m2 Ca 8.1 (L) 8.3 - 10.5 mg/dL BUN/Creatinine Ratio 16.1 CBC no Differential Collection Time: 07/13/18 6:07 Result Value Ref Range WBC 11.8 (H) 4.0 - 11.0 K/uL RBC 3.79 3.70 - 5.20 M/uL Hgb 11.2 (L) 11.5 - 16.0 g/dL Hct 34.3 34.0 - 47.0 % MCV 90.5 83.0 - 101.0 fL MCH 29.6 28.0 - 35.0 pg MCHC 32.7 32.0 - 36.0 g/dL RDW-CV 13.6 <15.0 % RDW-SD 45.2 35.1 - 46.3 fL Platelet Count 268 140 - 440 K/uL MPV 9.4 6.5 - 12.4 fL nRBC 0 0 - 2 per 100 WBC's NRBC ABS 0.00 0.00 - 0.01 K/uL Magnesium Collection Time: 07/13/18 6:07 Result Value Ref Range Magnesium 1.9 1.8 - 2.5 mg/dL Phosphorus Collection Time: 07/13/18 6:07 Result Value Ref Range Phosphorus 2.3 (L) 2.5 - 4.6 mg/dL Basic Metabolic Panel Collection Time: 07/13/18 15:08 Result Value Ref Range Na 134 (L) 136 - 149 mmol/L K 3.5 3.5 - 5.1 mmol/L Cl 102 98 - 109 mmol/L CO2 24 24 - 31 mmol/L Anion Gap 8 3 - 16 mmol/L Glucose 148 (H) 70 - 109 mg/dL BUN 9 7 - 18 mg/dL Creatinine 0.68 0.60 - 1.30 mg/dL eGFR if not >60 >=60 mL/min/1.73m2 Ca 8.1 (L) 8.3 - 10.5 mg/dL BUN/Creatinine Ratio 13.2 Micro results (more choices using dot micro) Microbiology Results (72 hrs) No results found for the last 72 hours. Radiology results (more choices using dot risresults) Xr Pelvis 1 Or 2 Vw Result Date: 07/13/2018 SINGLE AP PELVIS 07/13/2018 12:12 PM CLINICAL HISTORY: right hip hemiarthroplasty COMPARISO N: RADIOGRAPHS FROM THE PREVIOUS DAY FINDINGS: Proximal right femoral arthroplasty hardware is now present, and appears well-seated. No new fracture or subluxation is evident. The le ft hip joint, pubic symphysis and visible SI joints are maintained. Surgical clips project lateral to the right hip. IMPRESSION - 1. SATISFACTORY APPEARANCE STATUS POST RIGHT HIP HE MIARTHROPLASTY. Dictated and Signed by: Melvin Lott MD Electronically signed: 07/13/2018 1 :32 PM Fl C-arm Stats No Charge Result Date: 07/13/2018 This exam has been auto-finalized and the interpretation may exist elsewhere in the chart. Vitals Ranges: Temp: [36 C (96.8 F)-37.2 C (99 F)] 36.5 C (97.7 F) Pulse: [60-100] 74 Resp: [8-20] 16 BP: (117-164)/(46-70) 150/65 Vitals: Temp: 36.5 C (97.7 F) BP: 150/65 Pulse: 74 Resp: 16 SpO2: 95 % SpO2 95 % on nasal cannula at flow rate 1L/min Helen Alves MD 07/13/2018 17:52 [facility] documented in this enco unter Plan of Treatment +--------+---------+ + + + | Date | Type | Specialty | Care Team | Description | +--------+---------+ + + + | 07/08/ | Office | Cardiology | JuanNannette feldman, | | | 2018 | Visit | | MD [address] | | | | | | [place] | | | | | | [id number] | | | | | | | | +--------+---------+ + + + | 11/04/ | Office | Pulmonology | Sukhjinder, | | | 2019 | Visit | | Windy Aldrich, | | | | | | MD [address] | | | | | | [place], | | | | | | [place] [address] | | | | | | [phone] | | | | | | | | +--------+---------+ + + + + +------+--------+ + + | Name | Type | Priori | Associated Diagnoses | Order Schedule | | | | ty | | | + +------+--------+ + + | DME: Walker | DME | Routin | Closed fracture of | DME 1 Time for 1 | | | | e | right hip, initial | Occurrences starting | | | | | encounter (HCC) | 07/14/2018 until | | | | | | 07/14/2018 | + +------+--------+ + + + + +--------+ + + | Name | Type | Priori | Associated Diagnoses | Order Schedule | | | | ty | | | + + +--------+ + + | Home Health, | Outpatient | Routin | Closed fracture of | Ordered: 07/14/2018 | | External - AMB | Referral | e | right hip, initial | | | Referral | | | encounter ([facility]) | | + + +--------+ + + documented as of this encounter Procedures + +--------+ + + + | Procedure Name | Priori | Date/Time | Associated Diagnosis | Comments | | | ty | | | | + +--------+ + + + | CBC NO DIFFERENTIAL | Routin | 07/17/2018 | | Results for this | | | e | 6:23 AM | | procedure are in the | | | | PST | | results section. | + +--------+ + + + | BASIC METABOLIC | Routin | 07/17/2018 | | Results for this | | PANEL | e | 6:23 AM | | procedure are in the | | | | PST | | results section. | + +--------+ + + + | ECHO COMPLETE | Routin | 07/16/2018 | | Results for this | | | e | 8:10 AM | | procedure are in the | | | | PST | | results section. | + +--------+ + + + | EXTRA LAVENDER TOP | Routin | 07/16/2018 | | Results for this | | TUBE | e | 4:11 AM | | procedure are in the | | | | PST | | results section. | + +--------+ + + + | EXTRA GREEN TOP TUBE | Routin | 07/16/2018 | | Results for this | | | e | 4:11 AM | | procedure are in the | | | | PST | | results section. | + +--------+ + + + | TROPONIN I | Routin | 07/16/2018 | | Results for this | | | e | 4:11 AM | | procedure are in the | | | | PST | | results section. | + +--------+ + + + | TSH | Routin | 07/16/2018 | | Results for this | | | e | 4:11 AM | | procedure are in the | | | | PST | | results section. | + +--------+ + + + | TROPONIN I | Routin | 07/15/2018 | | Results for this | | | e | 11:55 PM | | procedure are in the | | | | PST | | results section. | + +--------+ + + + | TROPONIN I | Routin | 07/15/2018 | | Results for this | | | e | 5:59 PM | | procedure are in the | | | | PST | | results section. | + +--------+ + + + | TROPONIN I | Routin | 07/15/2018 | | Results for this | | | e | 1:02 PM | | procedure are in the | | | | PST | | results section. | + +--------+ + + + | ECG 12 LEAD | ART | 07/15/2018 | | Results for this | | | | 9:18 AM | | procedure are in the | | | | PST | | results section. | + +--------+ + + + | EXTRA GREEN TOP TUBE | Routin | 07/15/2018 | | Results for this | | | e | 6:10 AM | | procedure are in the | | | | PST | | results section. | + +--------+ + + + | CBC NO DIFFERENTIAL | Routin | 07/15/2018 | | Results for this | | | e | 6:10 AM | | procedure are in the | | | | PST | | results section. | + +--------+ + + + | CBC NO DIFFERENTIAL | Routin | 07/14/2018 | | Results for this | | | e | 8:27 AM | | procedure are in the | | | | PST | | results section. | + +--------+ + + + | PHOSPHORUS | Routin | 07/14/2018 | | Results for this | | | e | 6:26 AM | | procedure are in the | | | | PST | | results section. | + +--------+ + + + | RESPIRATORY THERAPY | Routin | 07/13/2018 | | | | COMMUNICATION | e | 5:34 PM | | | | | | PST | | | + +--------+ + + + | BASIC METABOLIC | Routin | 07/13/2018 | | Results for this | | PANEL | e | 3:08 PM | | procedure are in the | | | | PST | | results section. | + +--------+ + + + | XR PELVIS 1 OR 2 VW | STAT | 07/13/2018 | | Results for this | | | | 12:12 PM | | procedure are in the | | | | PST | | results section. | + +--------+ + + + | FL REAGAN STATS NO | Routin | 07/13/2018 | | Results for this | | CHARGE | e | 11:28 AM | | procedure are in the | | | | PST | | results section. | + +--------+ + + + | HEMIARTHROPLASTY HIP | | 07/13/2018 | rt femoral neck fx | | | | | 9:41 AM | | | | | | PST | | | + +--------+ + + + | CBC NO DIFFERENTIAL | Routin | 07/13/2018 | | Results for this | | | e | 6:07 AM | | procedure are in the | | | | PST | | results section. | + +--------+ + + + | PHOSPHORUS | Routin | 07/13/2018 | | Results for this | | | e | 6:07 AM | | procedure are in the | | | | PST | | results section. | + +--------+ + + + | MAGNESIUM | Routin | 07/13/2018 | | Results for this | | | e | 6:07 AM | | procedure are in the | | | | PST | | results section. | + +--------+ + + + | BASIC METABOLIC | Routin | 07/13/2018 | | Results for this | | PANEL | e | 6:07 AM | | procedure are in the | | | | PST | | results section. | + +--------+ + + + | URINALYSIS WITH | Routin | 07/13/2018 | | Results for this | | MICROSCOPIC WITH | e | 5:36 AM | | procedure are in the | | CULTURE IF INDICATED | | PST | | results section. | + +--------+ + + + | XR HIP RIGHT 2-3 | Routin | 07/12/2018 | | Results for this | | VIEWS | e | 3:15 PM | | procedure are in the | | | | PST | | results section. | + +--------+ + + + | IMAGING REPORT - | | 07/12/2018 | | Results for this | | EXTERNAL SCAN | | 12:00 AM | | procedure are in the | | | | PST | | results section. | + +--------+ + + + | LABS - EXTERNAL SCAN | | 07/12/2018 | | Results for this | | | | 12:00 AM | | procedure are in the | | | | PST | | results section. | + +--------+ + + + | ECG - EXTERNAL SCAN | | 07/12/2018 | | Results for this | | | | 12:00 AM | | procedure are in the | | | | PST | | results section. | + +--------+ + + + documented in this encounter Results CBC no Differential (07/17/2018 6:23 AM PST) + + + + + + | Component | Value | Ref Range | Performed | Pathologist | | | | | At | Signature | + + + + + + | WBC | 9.9 | 4.0 - 11.0 K/uL | [facility] | | | | | | [facility] | | | | | | [facility] | | | | | [facility] - | | | | | | LABORATORY | | + + + + + + | RBC | 3.06 (L) | 3.70 - 5.20 | [facility] | | | | | M/uL | [facility] | | | | | | [facility] | | | | | | C[facility] - | | | | | | LABORATORY | | + + + + + + | Hemoglobin | 8.9 (L) | 11.5 - 16.0 | [facility] | | | | | g/dL | [facility] | | | | | | [facility] | | | | | | CENTER - | | | | | | LABORATORY | | + + + + + + | Hematocrit | 28.0 (L) | 34.0 - 47.0 % | [facility] | | | | | | [facility] | | | | | | [facility] | | | | | | [facility] - | | | | | | LABORATORY | | + + + + + + | MCV | 91.5 | 83.0 - 101.0 fL | [facility] | | | | | | [facility] | | | | | | [facility] | | | | | | C[facility] - | | | | | | LABORATORY | | + + + + + + | MCH | 29.1 | 28.0 - 35.0 pg | [facility] | | | | | | [facility] | | | | | | [facility] | | | | | | CENTER - | | | | | | LABORATORY | | + + + + + + | MCHC | 31.8 (L) | 32.0 - 36.0 | [facility] | | | | | g/dL | [facility] | | | | | | [facility] | | | | | | CENTER - | | | | | | LABORATORY | | + + + + + + | RDW-CV | 13.8 | <15.0 % | [facility] | | | | | | [facility] | | | | | | [facility] | | | | | | C[facility] - | | | | | | LABORATORY | | + + + + + + | RDW-SD | 46.5 (H) | 35.1 - 46.3 fL | [facility] | | | | | [facility] | | | | | | [facility] | | | | | | [facility] - | | | | | | LABORATORY | | + + + + + + | Platelet | 312 | 140 - 440 K/uL | [facility] | | | Count | | | [facility] | | | | | | [facility] | | | | | | CENTER - | | | | | | LABORATORY | | + + + + + + | MPV | 9.5 | 6.5 - 12.4 fL | [facility] | | | | | | [facility] | | | | | | [facility] | | | | | | C[facility] - | | | | | | LABORATORY | | + + + + + + | % nRBC | 0 | 0 - 2 per 100 | [facility] | | | | | WBC's | [facility] | | | | | | [facility] | | | | | | CENTER - | | | | | | LABORATORY | | + + + + + + | Absolute | 0.00 | 0.00 - 0.01 | [facility] | | | nRBC | | K/uL | [facility] | | | | | | MED[facility] | | | | | | CENTER - | | | | | | LABORATORY | | + + + + + + + + | Specimen | + + | Blood | + + + + + + + | Performing | Address | City/State/Zipcode | Phone Number | | Organization | | | | + + + + + | [facility] | [address] | [place] | [phone] | | [facility] | | [address] | | | - LABORATORY | | | | + + + + + Basic Metabolic Panel (07/17/2018 6:23 AM PST) + + + + + + | Component | Value | Ref Range | Performed | Pathologist | | | | | At | Signature | + + + + + + | Na | 135 (L) | 136 - 149 | [facility] | | | | | mmol/L | [facility] | | | | | | MEDICAL | | | | | | CENTER - | | | | | | LABORATORY | | + + + + + + | K | 3.4 (L) | 3.5 - 5.1 | [facility] | | | | | mmol/L | [facility] | | | | | | MEDICAL | | | | | | CENTER - | | | | | | LABORATORY | | + + + + + + | Cl | 100 | 98 - 109 mmol/L | [facility] | | | | | | [facility] | | | | | | [facility] | | | | | | CENTER - | | | | | | LABORATORY | | + + + + + + | CO2 | 26 | 24 - 31 mmol/L | [facility] | | | | | | [facility] | | | | | | MEDICAL | | | | | | CENTER - | | | | | | LABORATORY | | + + + + + + | Anion Gap | 9 | 3 - 16 mmol/L | [facility] | | | | | | [facility] | | | | | | [facility] | | | | | | CENTER - | | | | | | LABORATORY | | + + + + + + | Glucose | 99 | 70 - 109 mg/dL | [facility] | | | | | | [facility] | | | | | | [facility]ICAL | | | | | | CENTER - | | | | | | LABORATORY | | + + + + + + | BUN | 12 | 7 - 18 mg/dL | [facility] | | | | | | [facility] | | | | | | MED[facility] | | | | | | CENTER - | | | | | | LABORATORY | | + + + + + + | Creatinine | 0.68 | 0.60 - 1.30 | [facility] | | | | | mg/dL | [facility] | | | | | | MEDICAL | | | | | | CENTER - | | | | | | LABORATORY | | + + + + + + | eGFR if not | >60Comment: GLOMERULAR | >=60 | [facility] | | | | FILTRATION | mL/min/1.73m2 | [facility] | | | [place] | RATE,ESTIMATED | | MEDICAL | | | | mL/min/1.84y2Baxt than | | CENTER - | | | | 60 Chronic kidney | | LABORATORY | | | | disease,if found over a | | | | | | 3-month period.Less than | | | | | | 15 Kidney failureFor | | | | | | | | | | | | Americans,multiply the | | | | | | calculated GFR by 1.21. | | | | | | | | | | + + + + + + | Calcium | 8.3 | 8.3 - 10.5 | [facility] | | | | | mg/dL | [facility] | | | | | | MEDICAL | | | | | | CENTER - | | | | | | LABORATORY | | + + + + + + | BUN/Creatin | 17.6 | | [facility] | | | ine Ratio | | | [facility] | | | | | | MEDICAL | | | | | | CENTER - | | | | | | LABORATORY | | + + + + + + + + | Specimen | + + | Blood | + + + + + + + | Performing | Address | City/State/Zipcode | Phone Number | | Organization | | | | + + + + + | [facility] | [address] | [place] | [phone] | | [facility] | | [address] | | | - LABORATORY | | | | + + + + + ECHO Complete (07/16/2018 8:10 AM PST) + + + + + + | Component | Value | Ref Range | Performed | Pathologist | | | | | At | Signature | + + + + + + | Patient | 139 | | [facility] | | | Weight | | | | | | (lbs) | | | | | + + + + + + | Patient | 5'5" | | [facility] | | | Height | | | | | + + + + + + | LVIDd | 4.26 | cm | [facility] | | + + + + + + | FS | 26 | % | [facility] | | + + + + + + | LA volume | 85.44 | mL | [facility] | | + + + + + + | Ascending | 3.76 | cm | [facility] | | | aorta | | | | | + + + + + + | Aortic arch | 3.39 | cm | [facility] | | + + + + + + | AV | 405.3 | msec | [facility] | | | regurgitati | | | | | | on pressure | | | | | | 1/2 time | | | | | + + + + + + | AV mean | 7.36 | mmHg | [facility] | | | gradient | | | | | + + + + + + | MV mean | 3.3 | mmHg | [facility] | | | gradient | | | | | + + + + + + | MV Area by | 2.97 | cm2 | [facility] | | | P 1/2 | | | | | | method | | | | | + + + + + + | IVRT | 96.89 | msec | [facility] | | + + + + + + | LVOT peak | 114.71 | cm/s | [facility] | | | holli | | | | | + + + + + + | LVOT peak | 27.09 | cm | [facility] | | | VTI | | | | | + + + + + + | AV peak holli | 185.6 | cm/s | [facility] | | + + + + + + | AV VTI | 43.08 | cm | [facility] | | + + + + + + | AV peak | 13.78 | mmHg | [facility] | | | gradient | | | | | + + + + + + | MV peak | 7.44 | mmHg | [facility] | | | gradient | | | | | + + + + + + | MV Pressure | 74.03 | msec | [facility] | | | 1/2 time | | | | | + + + + + + | LA Volume | 51 | mL/m2 | [facility] | | | Index | | | | | + + + + + + | AV LVOT | 5.26 | mmHg | [facility] | | | Peak | | | | | | Gradient | | | | | + + + + + + | AV LVOT | 2.93 | mmHg | [facility] | | | Mean | | | | | | Gradient | | | | | + + + + + + | TR Peak | 41 | mmHg | [facility] | | | Gradient | | | | | + + + + + + | TR Velocity | 318.67 | cm | [facility] | | + + + + + + | LV | 6.27 | cm | [facility] | | | Diastolic | | | | | | Length 4C | | | | | + + + + + + | LV | 70 | % | [facility] | | | Pan's | | | | | | Biplane EF | | | | | + + + + + + | LV ED | 80.7 | ml | [facility] | | | Volume | | | | | | (Pan's) | | | | | + + + + + + | LV ED | 48 | ml/m2 | [facility] | | | Volume | | | | | | Index | | | | | + + + + + + | LV ES | 24.86 | ml | [facility] | | | Volume | | | | | + + + + + + | LVOT Mean | 80.71 | cm/s | [facility] | | | Velocity | | | | | + + + + + + | MV E' | 8 | cm/s | [facility] | | | Septal | | | | | | Velocity | | | | | + + + + + + | MV | 534.07 | cm/s2 | [facility] | | | Deceleratio | | | | | | n Cidra | | | | | + + + + + + | MV | 255.28 | msec | [facility] | | | Deceleratio | | | | | | n Time | | | | | + + + + + + | MV E/A | 1.02 | | [facility] | | | Ratio | | | | | + + + + + + | MV Mean | 85.8 | cm/s | [facility] | | | Velocity | | | | | + + + + + + | MV Peak | 133.79 | cm/s | [facility] | | | A-Wave | | | | | + + + + + + | MV Peak | 136.34 | cm/s | [facility] | | | E-Wave | | | | | + + + + + + | AV | 1,397.58 | msec | [facility] | | | Deceleratio | | | | | | n Time | | | | | + + + + + + | AV Mean | 128.34 | cm/s | [facility] | | | Velocity | | | | | + + + + + + | LA/Aorta | 1.26 | | [facility] | | | Ratio | | | | | + + + + + + | MV E/E | 17.04 | | [facility] | | | SEPTAL | | | | | + + + + + + | LA Major | 0.4308 | cm | [facility] | | + + + + + + | LV ES | 15 | ml/m2 | [facility] | | | Volume | | | | | | Index | | | | | + + + + + + | Aortic Root | 3.64 | cm | [facility] | | | Diameter | | | | | + + + + + + | IVS | 0.98 | cm | [facility] | | | Diastolic | | | | | | Thickness | | | | | | MM | | | | | + + + + + + | LVPW | 0.93 | cm | [facility] | | | Diastolic | | | | | | Thickness | | | | | | MM | | | | | + + + + + + | IVS | 1.05 | cm | [facility] | | | Systolic | | | | | | Thickness | | | | | | MM | | | | | + + + + + + | LV Systolic | 3.16 | cm | [facility] | | | Diameter | | | | | | MM | | | | | + + + + + + | LVPW | 1.25 | cm | [facility] | | | Systolic | | | | | | Thickness | | | | | | MM | | | | | + + + + + + | AV Cusp | 1.84 | cm | [facility] | | | Seperation | | | | | | MM | | | | | + + + + + + | LA Systolic | 4.6 | cm | [facility] | | | Diameter | | | | | | MM | | | | | + + + + + + | TAPSE | 1.8 | cm | [facility] | | + + + + + + | LVEF-TTE | 70 | % | [facility] | | | TRANSTHORAC | | | | | | IC ECHO | | | | | + + + + + + | RA PRESSURE | 3 | mmHg | [facility] | | + + + + + + | RVSP | 44 | mmHg | [facility] | | | Estimated | | | | | + + + + + + + + | Specimen | + + | | + + + + + | Narrative | Performed At | + + + | 1. Mild | [facility] | | biatrial dilatation.2. Normal left ventricular size, wall thickness | | | and motion. Preserved left ventricular systolic function. LVEF is | | | 70-75%.3. Grade 1 left ventricular diastolic dysfunction.4. 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 There is aortic valve sclerosis | | | without significant aortic valve stenosis. There is a mild to | | | moderate central aortic valve insufficiency. 5. Mildly thickened | | | and calcified mitral valve with the trace mitral valve | | | regurgitation.6. Mild mitral annular calcification.7. Mild | | | pulmonary hypertension with a peak systolic pressure of 45-50 mmHg.8. | | | Normal IVC with normal respiratory collapse. | | |mmHg. | | |8. Normal IVC with normal respiratory collapse. | | + + + + +---------+ + + | Performing | Address | City/State/Zipcode | Phone Number | | Organization | | | | + +---------+ + + | [facility] | | | | + +---------+ + + Extra Green Top Tube (07/16/2018 4:11 AM PST) + +-------+ + + + | Component | Value | Ref Range | Performed | Pathologist | | | | | At | Signature | + +-------+ + + + | Extra Green | Done | | [facility] | | | Top Tube | | | [facility] | | | | | | [...] + + | [facility] | [address] | [place] | [phone] | | [facility] | | [address] | | | - LABORATORY | | | | + + + + + Extra Lavender Top Tube (07/16/2018 4:11 AM PST) + +-------+ + + + | Component | Value | Ref Range | Performed | Pathologist | | | | | At | Signature | + +-------+ + + + | Extra | Done | | [facility] | | | Lavender | | | [facility] | | | Top Tube | | | MEDICAL | | | [...] + | [facility] | [address] | [place] | [phone] | | [facility] | | [address] | | | - LABORATORY | | | | + + + + + TSH (07/16/2018 4:11 AM PST) + + + + + + | Component | Value | Ref Range | Performed | Pathologist | | | | | At | Signature | + + + + + + | TSH | 1.71Comment: This is a | 0.45 - 5.33 | [facility] | | | | third generation TSH | uIU/mL | [facility] | | | | test. | | MEDICAL | | | | | | CENTER - | | | | | | LABORATORY | | + + + + + + + + | Specimen | + + | Blood | + + + + + + + | Performing | Address | City/State/Zipcode | Phone Number | | Organization | | | | + + + + + | [facility] | [address] | [place] | [phone] | | [facility] | | [address] | | | - LABORATORY | | | | + + + + + Troponin I (07/16/2018 4:11 AM PST) + + + + + + | Component | Value | Ref Range | Performed | Pathologist | | | | | At | Signature | + + + + + + | Troponin I | 0.22 (H)Comment: | <0.06 ng/mL | [facility] | | | | Reference | | [facility] | | | | Ranges:0.00-0.06 = | | MEDICAL | | | | NORMAL>0.06 = | | CENTER - | | | | SUSPICIOUS FOR | | LABORATORY | | | | MYOCARDIAL DAMAGE NOTE: | | | | | | Values greater than 0.50 | | | | | | ng/mL have been shown | | | | | | to be strongly | | | | | | associated with acute | | | | | | myocardial infarction. | | | | | | [employer] | | | | | | [employer] (ACC) | | | | | | recommends a decision | | | | | | limit of 0.06 ng/mL for | | | | | | this assay. Results | | | | | | greater than 0.06 can | | | | | | reflect a pre-infarct | | | | | | acute coronary syndrome, | | | | | | but can also reflect | | | | | | myocardial necrosis or | | | | | | injury that is not due | | | | | | to coronary artery | | | | | | disease. Some of these | | | | | | causes are sepsis, | | | | | | hypocolemia, atrial | | | | | | fibrillation, heart | | | | | | failure, pulmonary | | | | | | embolism, myocarditis, | | | | | | myocardial contusion, | | | | | | and renal failure. The | | | | | | diagnosis of myocardial | | | | | | infarction should be | | | | | | based on a combination | | | | | | of the patient's | | | | | | clinical presentation | | | | | | and the clinical | | | | | | laboratory test results | | | | | | (especially serial | | | | | | troponin levels). | | | | + + + + + + + + | Specimen | + + | Blood | + + + + + + + | Performing | Address | City/State/Zipcode | Phone Number | | Organization | | | | + + + + + | [facility] | [address] | [place] | [phone] | | [facility] | | [address] | | | - LABORATORY | | | | + + + + + Troponin I (07/15/2018 11:55 PM PST) + + + + + + | Component | Value | Ref Range | Performed | Pathologist | | | | | At | Signature | + + + + + + | Troponin I | 0.23 (H)Comment: | <0.06 ng/mL | [facility] | | | | Reference | | [facility] | | | | Ranges:0.00-0.06 = | | MEDICAL | | | | NORMAL>0.06 = | | CENTER - | | | | SUSPICIOUS FOR | | LABORATORY | | | | MYOCARDIAL DAMAGE NOTE: | | | | | | Values greater than 0.50 | | | | | | ng/mL have been shown | | | | | | to be strongly | | | | | | associated with acute | | | | | | myocardial infarction. | | | | | | [employer] | | | | | | Cardiology (ACC) | | | | | | recommends a decision | | | | | | limit of 0.06 ng/mL for | | | | | | this assay. Results | | | | | | greater than 0.06 can | | | | | | reflect a pre-infarct | | | | | | acute coronary syndrome, | | | | | | but can also reflect | | | | | | myocardial necrosis or | | | | | | injury that is not due | | | | | | to coronary artery | | | | | | disease. Some of these | | | | | | causes are sepsis, | | | | | | hypocolemia, atrial | | | | | | fibrillation, heart | | | | | | failure, pulmonary | | | | | | embolism, myocarditis, | | | | | | myocardial contusion, | | | | | | and renal failure. The | | | | | | diagnosis of myocardial | | | | | | infarction should be | | | | | | based on a combination | | | | | | of the patient's | | | | | | clinical presentation | | | | | | and the clinical | | | | | | laboratory test results | | | | | | (especially serial | | | | | | troponin levels). | | | | + + + + + + + + | Specimen | + + | Blood | + + + + + + + | Performing | Address | City/State/Zipcode | Phone Number | | Organization | | | | + + + + + | [facility] | [address] | [place] | [phone] | | [facility] | | [address] | | | - LABORATORY | | | | + + + + + Troponin I (07/15/2018 5:59 PM PST) + + + + + + | Component | Value | Ref Range | Performed | Pathologist | | | | | At | Signature | + + + + + + | Troponin I | 0.25 (H)Comment: | <0.06 ng/mL | [facility] | | | | Reference | | [facility] | | | | Ranges:0.00-0.06 = | | MEDICAL | | | | NORMAL>0.06 = | | CENTER - | | | | SUSPICIOUS FOR | | LABORATORY | | | | MYOCARDIAL DAMAGE NOTE: | | | | | | Values greater than 0.50 | | | | | | ng/mL have been shown | | | | | | to be strongly | | | | | | associated with acute | | | | | | myocardial infarction. | | | | | | [employer] | | | | | | Cardiology (ACC) | | | | | | recommends a decision | | | | | | limit of 0.06 ng/mL for | | | | | | this assay. Results | | | | | | greater than 0.06 can | | | | | | reflect a pre-infarct | | | | | | acute coronary syndrome, | | | | | | but can also reflect | | | | | | myocardial necrosis or | | | | | | injury that is not due | | | | | | to coronary artery | | | | | | disease. Some of these | | | | | | causes are sepsis, | | | | | | hypocolemia, atrial | | | | | | fibrillation, heart | | | | | | failure, pulmonary | | | | | | embolism, myocarditis, | | | | | | myocardial contusion, | | | | | | and renal failure. The | | | | | | diagnosis of myocardial | | | | | | infarction should be | | | | | | based on a combination | | | | | | of the patient's | | | | | | clinical presentation | | | | | | and the clinical | | | | | | laboratory test results | | | | | | (especially serial | | | | | | troponin levels). | | | | + + + + + + + + | Specimen | + + | Blood | + + + + + + + | Performing | Address | City/State/[facility] | Phone Number | | Organization | | | | + + + + + | [facility] | [address] | [place] | [phone] | | [facility] | | [id number] | | | - LABORATORY | | | | + + + + + Troponin I (07/15/2018 1:02 PM PST) + + + + + + | Component | Value | Ref Range | Performed | Pathologist | | | | | At | Signature | + + + + + + | Troponin I | 0.32 (H)Comment: | <0.06 ng/mL | [facility] | | | | Reference | | [facility] | | | | Ranges:0.00-0.06 = | | MEDICAL | | | | NORMAL>0.06 = | | CENTER - | | | | SUSPICIOUS FOR | | LABORATORY | | | | MYOCARDIAL DAMAGE NOTE: | | | | | | Values greater than 0.50 | | | | | | ng/mL have been shown | | | | | | to be strongly | | | | | | associated with acute | | | | | | myocardial infarction. | | | | | | [employer] | | | | | | [employer] ([employer]) | | | | | | recommends a decision | | | | | | limit of 0.06 ng/mL for | | | | | | this assay. Results | | | | | | greater than 0.06 can | | | | | | reflect a pre-infarct | | | | | | acute coronary syndrome, | | | | | | but can also reflect | | | | | | myocardial necrosis or | | | | | | injury that is not due | | | | | | to coronary artery | | | | | | disease. Some of these | | | | | | causes are sepsis, | | | | | | hypocolemia, atrial | | | | | | fibrillation, heart | | | | | | failure, pulmonary | | | | | | embolism, myocarditis, | | | | | | myocardial contusion, | | | | | | and renal failure. The | | | | | | diagnosis of myocardial | | | | | | infarction should be | | | | | | based on a combination | | | | | | of the patient's | | | | | | clinical presentation | | | | | | and the clinical | | | | | | laboratory test results | | | | | | (especially serial | | | | | | troponin levels). | | | | + + + + + + + + | Specimen | + + | Blood | + + + + + + + | Performing | Address | City/State/Zipcode | Phone Number | | Organization | | | | + + + + + | [facility] | [address] | [place] | [phone] | | [facility] | | [id number] | | | - LABORATORY | | | | + + + + + ECG 12 lead (07/15/2018 9:18 AM PST) + + + + + + | Component | Value | Ref Range | Performed | Pathologist | | | | | At | Signature | + + + + + + | VENTRICULAR | 132 | BPM | [facility] | | | RATE EKG | | | | | + + + + + + | QRS | 70 | ms | [facility] | | | DURATION | | | | | + + + + + + | Q-T | 284 | ms | [facility] | | | INTERVAL | | | | | + + + + + + | Q-T | 420 | ms | [facility] | | | INTERVAL | | | | | | (CORRECTED) | | | | | + + + + + + | QRS AXIS | -7 | degrees | [facility] | | + + + + + + | T AXIS | -39 | degrees | [facility] | | + + + + + + | INTERPRETAT | Atrial fibrillation with | | [facility] | | | ION TEXT | rapid ventricular | | | | | | responseLow voltage | | | | | | QRSNonspecific ST and T | | | | | | wave abnormalityAbnormal | | | | | | ECGNo previous ECGs | | | | | | availableConfirmed by | | | | | | AMANDA CHACON MD ([id number]) | | | | | | on 07/15/2018 11:36:43 | | | | | | AM | | | | + + + + + + + + | Specimen | + + | | + + + + + | Narrative | Performed At | + + + | | | + + + + +---------+ + + | Performing | Address | City/State/Zipcode | Phone Number | | Organization | | | | + +---------+ + + | [facility] | | | | + +---------+ + + Extra Green Top Tube (07/15/2018 6:10 AM PST) + +-------+ + + + | Component | Value | Ref Range | Performed | Pathologist | | | | | At | Signature | + +-------+ + + + | Extra Green | Done | | [facility] | | | Top Tube | | | [facility] | | [...] | + + + + + | [facility] | [address] | [place] | [phone] | | [facility] | | [address] | | | - LABORATORY | | | | + + + + + CBC no Differential (07/15/2018 6:10 AM PST) + + + + + + | Component | Value | Ref Range | Performed | Pathologist | | | | | At | Signature | + + + + + + | WBC | 13.1 (H) | 4.0 - 11.0 K/uL | [facility] | | | | | | [facility] | | | | | | [facility] | | | | | [facility] - | | | | | | LABORATORY | | + + + + + + | RBC | 3.28 (L) | 3.70 - 5.20 | [facility] | | | | | M/uL | [facility] | | | | | | [facility] | | | | | | CENTER - | | | | | | LABORATORY | | + + + + + + | Hemoglobin | 9.5 (L) | 11.5 - 16.0 | [facility] | | | | | g/dL | [facility] | | | | | | [facility] | | | | | | CENTER - | | | | | | LABORATORY | | + + + + + + | Hematocrit | 30.0 (L) | 34.0 - 47.0 % | [facility] | | | | | | [facility] | | | | | | [facility] | | | | | | CENTER - | | | | | | LABORATORY | | + + + + + + | MCV | 91.5 | 83.0 - 101.0 fL | [facility] | | | | | | [facility] | | | | | | [facility] | | | | | | CENTER - | | | | | | LABORATORY | | + + + + + + | MCH | 29.0 | 28.0 - 35.0 pg | [facility] | | | | | | [facility] | | | | | | [facility] | | | | | | CENTER - | | | | | | LABORATORY | | + + + + + + | MCHC | 31.7 (L) | 32.0 - 36.0 | [facility] | | | | | g/dL | [facility] | | | | | | MED[facility] | | | | | | CENTER - | | | | | | LABORATORY | | + + + + + + | RDW-CV | 13.9 | <15.0 % | [facility] | | | | | | [facility] | | | | | | [facility] | | | | | | CENTER - | | | | | | LABORATORY | | + + + + + + | RDW-SD | 47.1 (H) | 35.1 - 46.3 fL | [facility] | | | | | | [facility] | | | | | | [facility] | | | | | | CENTER - | | | | | | LABORATORY | | + + + + + + | Platelet | 270 | 140 - 440 K/uL | [facility] | | | Count | | | [facility] | | | | | | MED[facility] | | | | | | CENTER - | | | | | | LABORATORY | | + + + + + + | MPV | 9.5 | 6.5 - 12.4 fL | [facility] | | | | | | [facility] | | | | | | MEDICAL | | | | | | CENTER - | | | | | | LABORATORY | | + + + + + + | % nRBC | 0 | 0 - 2 per 100 | [facility] | | | | | WBC's | [facility] | | | | | | MEDICAL | | | | | | CENTER - | | | | | | LABORATORY | | + + + + + + | Absolute | 0.00 | 0.00 - 0.01 | [facility] | | | nRBC | | K/uL | [facility] | | | | | | [facility]ICAL | | | | | | CENTER - | | | | | | LABORATORY | | + + + + + + + + | Specimen | + + | Blood | + + + + + + + | Performing | Address | City/State/Zipcode | Phone Number | | Organization | | | | + + + + + | [facility] | [address] | [place] | [phone] | | [facility] | | [address] | | | - LABORATORY | | | | + + + + + CBC no Differential (07/14/2018 8:27 AM PST) + + + + + + | Component | Value | Ref Range | Performed | Pathologist | | | | | At | Signature | + + + + + + | WBC | 12.8 (H) | 4.0 - 11.0 K/uL | [facility] | | | | | | [facility] | | | | | | [facility]ICAL | | | | | | CENTER - | | | | | | LABORATORY | | + + + + + + | RBC | 3.17 (L) | 3.70 - 5.20 | [facility] | | | | | M/uL | [facility] | | | | | | MEDICAL | | | | | | CENTER - | | | | | | LABORATORY | | + + + + + + | Hemoglobin | 9.3 (L) | 11.5 - 16.0 | [facility] | | | | | g/dL | [facility] | | | | | | MEDICAL | | | | | | CENTER - | | | | | | LABORATORY | | + + + + + + | Hematocrit | 28.7 (L) | 34.0 - 47.0 % | [facility] | | | | | | [facility] | | | | | | MEDICAL | | | | | | CENTER - | | | | | | LABORATORY | | + + + + + + | MCV | 90.5 | 83.0 - 101.0 fL | [facility] | | | | | | [facility] | | | | | | MEDICAL | | | | | | CENTER - | | | | | | LABORATORY | | + + + + + + | MCH | 29.3 | 28.0 - 35.0 pg | [facility] | | | | | | [facility] | | | | | | MEDICAL | | | | | | CENTER - | | | | | | LABORATORY | | + + + + + + | MCHC | 32.4 | 32.0 - 36.0 | [facility] | | | | | g/dL | [facility] | | | | | | MEDICAL | | | | | | CENTER - | | | | | | LABORATORY | | + + + + + + | RDW-CV | 14.1 | <15.0 % | [facility] | | | | | | [facility] | | | | | | [facility] | | | | | | CENTER - | | | | | | LABORATORY | | + + + + + + | RDW-SD | 47.0 (H) | 35.1 - 46.3 fL | [facility] | | | | | | [facility] | | | | | | [facility] | | | | | | CENTER - | | | | | | LABORATORY | | + + + + + + | Platelet | 213 | 140 - 440 K/uL | [facility] | | | Count | | | [facility] | | | | | | MEDICAL | | | | | | CENTER - | | | | | | LABORATORY | | + + + + + + | MPV | 10.0 | 6.5 - 12.4 fL | [facility] | | | | | | [facility] | | | | | | MEDICAL | | | | | | CENTER - | | | | | | LABORATORY | | + + + + + + | Immature | 2.3Comment: Low PLT + | 0.9 - 11.2 % | [facility] | | | Platelet | Low IPF are consistent | | [facility] | | | Fraction | with a production | | MEDICAL | | | | disorder. Low PLT + High | | CENTER - | | | | IPF are consistent with | | LABORATORY | | | | destruction mechanism. | | | | + + + + + + | % nRBC | 0 | 0 - 2 per 100 | [facility] | | | | | WBC's | [facility] | | | | | | MEDICAL | | | | | | CENTER - | | | | | | LABORATORY | | + + + + + + | Absolute | 0.00 | 0.00 - 0.01 | [facility] | | | nRBC | | K/uL | [facility] | | | | | | MEDICAL | | | | | | CENTER - | | | | | | LABORATORY | | + + + + + + + + | Specimen | + + | Blood | + + + + + + + | Performing | Address | City/State/Zipcode | Phone Number | | Organization | | | | + + + + + | [facility] | [address] | [place] | [phone] | | [facility] | | [address] | | | - LABORATORY | | | | + + + + + Phosphorus (07/14/2018 6:26 AM PST) + +-------+ + + + | Component | Value | Ref Range | Performed | Pathologist | | | | | At | Signature | + +-------+ + + + | Phosphorus | 3.0 | 2.5 - 4.6 mg/dL | [facility] | | | | | | [facility] | | | | | | [...] + | [facility] | [address] | [place] | [phone] | | [facility] | | [address] | | | - LABORATORY | | | | + + + + + Basic Metabolic Panel (07/13/2018 3:08 PM PST) + + + + + + | Component | Value | Ref Range | Performed | Pathologist | | | | | At | Signature | + + + + + + | Na | 134 (L) | 136 - 149 | [facility] | | | | | mmol/L | [facility] | | | | | | MEDICAL | | | | | | CENTER - | | | | | | LABORATORY | | + + + + + + | K | 3.5 | 3.5 - 5.1 | [facility] | | | | | mmol/L | [facility] | | | | | | MEDICAL | | | | | | CENTER - | | | | | | LABORATORY | | + + + + + + | Cl | 102 | 98 - 109 mmol/L | [facility] | | | | | | [facility] | | | | | | MEDICAL | | | | | | CENTER - | | | | | | LABORATORY | | + + + + + + | CO2 | 24 | 24 - 31 mmol/L | [facility] | | | | | | [facility] | | | | | | MEDICAL | | | | | | CENTER - | | | | | | LABORATORY | | + + + + + + | Anion Gap | 8 | 3 - 16 mmol/L | [facility] | | | | | | [facility] | | | | | | MEDICAL | | | | | | CENTER - | | | | | | LABORATORY | | + + + + + + | Glucose | 148 (H) | 70 - 109 mg/dL | [facility] | | | | | | [facility] | | | | | | MEDICAL | | | | | | CENTER - | | | | | | LABORATORY | | + + + + + + | BUN | 9 | 7 - 18 mg/dL | [facility] | | | | | | [facility] | | | | | | MEDICAL | | | | | | CENTER - | | | | | | LABORATORY | | + + + + + + | Creatinine | 0.68 | 0.60 - 1.30 | [facility] | | | | | mg/dL | [facility] | | | | | | MEDICAL | | | | | | CENTER - | | | | | | LABORATORY | | + + + + + + | eGFR if not | >60Comment: GLOMERULAR | >=60 | [facility] | | | | FILTRATION | mL/min/1.73m2 | [facility] | | | [place] | RATE,ESTIMATED | | MEDICAL | | | | mL/min/1.48l3Fori than | | CENTER - | | | | 60 Chronic kidney | | LABORATORY | | | | disease,if found over a | | | | | | 3-month period.Less than | | | | | | 15 Kidney failureFor | | | | | | | | | | | | Americans,multiply the | | | | | | calculated GFR by 1.21. | | | | | | | | | | + + + + + + | Calcium | 8.1 (L) | 8.3 - 10.5 | [facility] | | | | | mg/dL | [facility] | | | | | | MEDICAL | | | | | | CENTER - | | | | | | LABORATORY | | + + + + + + | BUN/Creatin | 13.2 | | [facility] | | | ine Ratio | | | [facility] | | | | | | MEDICAL | | | | | | CENTER - | | | | | | LABORATORY | | + + + + + + + + | Specimen | + + | Blood | + + + + + + + | Performing | Address | City/State/Zipcode | Phone Number | | Organization | | | | + + + + + | [facility] | [address] | [place] | [phone] | | [facility] | | [address] | | | - LABORATORY | | | | + + + + + XR Pelvis 1 or 2 Vw (07/13/2018 12:12 PM PST) + + | Specimen | + + | | + + + + + | Narrative | Performed At | + + + | SINGLE AP PELVIS 07/13/2018 12:12 PM CLINICAL HISTORY: right hip | [facility] | | hemiarthroplasty COMPARISON: RADIOGRAPHS FROM THE PREVIOUS DAY | | | FINDINGS: Proximal right femoral arthroplasty hardware is now | | | present, and appears well-seated. No new fracture or subluxation is | | | evident. The left hip joint, pubic symphysis and visible SI joints | | | are maintained. Surgical clips project lateral to the right hip. | | | IMPRESSION - 1. SATISFACTORY APPEARANCE STATUS POST RIGHT HIP | | | HEMIARTHROPLASTY. Dictated and Signed by: Melvin Lott MD | | | Electronically signed: 07/13/2018 1:32 PM | | + + + + + | Procedure Note | + + | Jose, Rad Results In - 07/13/2018 1:35 PM PST SINGLE AP PELVIS 07/13/2018 12:12 PM | | | | CLINICAL HISTORY: right hip hemiarthroplasty | | | | COMPARISON: RADIOGRAPHS FROM THE PREVIOUS DAY | | | | FINDINGS: Proximal right femoral arthroplasty hardware is now present, and | | appears well-seated. No new fracture or subluxation is evident. The left hip | | joint, pubic symphysis and visible SI joints are maintained. Surgical clips | | project lateral to the right hip. | | | | IMPRESSION - | | 1. SATISFACTORY APPEARANCE STATUS POST RIGHT HIP HEMIARTHROPLASTY. | | | | Dictated and Signed by: Melvin Lott MD | | Electronically signed: 07/13/2018 1:32 PM | + + + +---------+ + + | Performing | Address | City/State/Zipcode | Phone Number | | Organization | | | | + +---------+ + + | [facility] | | | | + +---------+ + + [place] Cecilio Gavino Cinthia Burgess (07/13/2018 11:28 AM PST) + + | Specimen | + + | | + + + + + | Narrative | Performed At | + + + | This exam has been auto-finalized and the interpretation may exist | [facility] | | elsewhere in the chart. | | + + + + +---------+ + + | Performing | Address | City/State/Zipcode | Phone Number | | Organization | | | | + +---------+ + + | [facility] | | | | + +---------+ + + Phosphorus (07/13/2018 6:07 AM PST) + +---------+ + + + | Component | Value | Ref Range | Performed | Pathologist | | | | | At | Signature | + +---------+ + + + | Phosphorus | 2.3 (L) | 2.5 - 4.6 mg/dL | [facility] | | | | | | [facility] | | | | | | MEDICAL | | | | | | CENTER - | | | | | | LABORATORY | | + +---------+ + + + + + | Specimen | + + | Blood | + + + + + + + | Performing | Address | City/State/Zipcode | Phone Number | | Organization | | | | + + + + + | [facility] | [address] | [place] | [phone] | | [facility] | | [address] | | | - LABORATORY | | | | + + + + + Magnesium (07/13/2018 6:07 AM PST) + +-------+ + + + | Component | Value | Ref Range | Performed | Pathologist | | | | | At | Signature | + +-------+ + + + | Magnesium | 1.9 | 1.8 - 2.5 mg/dL | [facility] | | | | | | [facility] | | | | [facility] | [address] | [place] | [phone] | | [facility] | | [address] | | | - LABORATORY | | | | + + + + + CBC no Differential (07/13/2018 6:07 AM PST) + + + + + + | Component | Value | Ref Range | Performed | Pathologist | | | | | At | Signature | + + + + + + | WBC | 11.8 (H) | 4.0 - 11.0 K/uL | [facility] | | | | | | [facility] | | | | | | MEDICAL | | | | | | CENTER - | | | | | | LABORATORY | | + + + + + + | RBC | 3.79 | 3.70 - 5.20 | [facility] | | | | | M/uL | [facility] | | | | | | MEDICAL | | | | | | CENTER - | | | | | | LABORATORY | | + + + + + + | Hemoglobin | 11.2 (L) | 11.5 - 16.0 | [facility] | | | | | g/dL | [facility] | | | | | | MEDICAL | | | | | | CENTER - | | | | | | LABORATORY | | + + + + + + | Hematocrit | 34.3 | 34.0 - 47.0 % | [facility] | | | | | | [facility] | | | | | | MEDICAL | | | | | | CENTER - | | | | | | LABORATORY | | + + + + + + | MCV | 90.5 | 83.0 - 101.0 fL | [facility] | | | | | | [facility] | | | | | | MEDICAL | | | | | | CENTER - | | | | | | LABORATORY | | + + + + + + | MCH | 29.6 | 28.0 - 35.0 pg | [facility] | | | | | | [facility] | | | | | | MEDICAL | | | | | | CENTER - | | | | | | LABORATORY | | + + + + + + | MCHC | 32.7 | 32.0 - 36.0 | [facility] | | | | | g/dL | [facility] | | | | | | MEDICAL | | | | | | CENTER - | | | | | | LABORATORY | | + + + + + + | RDW-CV | 13.6 | <15.0 % | [facility] | | | | | | [facility] | | | | | | MEDICAL | | | | | | CENTER - | | | | | | LABORATORY | | + + + + + + | RDW-SD | 45.2 | 35.1 - 46.3 fL | [facility] | | | | | | [facility] | | | | | | MEDICAL | | | | | | CENTER - | | | | | | LABORATORY | | + + + + + + | Platelet | 268 | 140 - 440 K/uL | [facility] | | | Count | | | [facility] | | | | | | MEDICAL | | | | | | CENTER - | | | | | | LABORATORY | | + + + + + + | MPV | 9.4 | 6.5 - 12.4 fL | [facility] | | | | | | [facility] | | | | | | MEDICAL | | | | | | CENTER - | | | | | | LABORATORY | | + + + + + + | % nRBC | 0 | 0 - 2 per 100 | [facility] | | | | | WBC's | [facility] | | | | | | MEDICAL | | | | | | CENTER - | | | | | | LABORATORY | | + + + + + + | Absolute | 0.00 | 0.00 - 0.01 | [facility] | | | nRBC | | K/uL | [facility] | | | | | | MEDICAL | | | | | | CENTER - | | | | | | LABORATORY | | + + + + + + + + | Specimen | + + | Blood | + + + + + + + | Performing | Address | City/State/Zipcode | Phone Number | | Organization | | | | + + + + + | [facility] | [address] | [place] | [phone] | | [facility] | | [address] | | | - LABORATORY | | | | + + + + + Basic Metabolic Panel (07/13/2018 6:07 AM PST) + + + + + + | Component | Value | Ref Range | Performed | Pathologist | | | | | At | Signature | + + + + + + | Na | 137 | 136 - 149 | [facility] | | | | | mmol/L | [facility] | | | | | | MEDICAL | | | | | | CENTER - | | | | | | LABORATORY | | + + + + + + | K | 3.5 | 3.5 - 5.1 | [facility] | | | | | mmol/L | [facility] | | | | | | MEDICAL | | | | | | CENTER - | | | | | | LABORATORY | | + + + + + + | Cl | 102 | 98 - 109 mmol/L | [facility] | | | | | | [facility] | | | | | | MEDICAL | | | | | | CENTER - | | | | | | LABORATORY | | + + + + + + | CO2 | 26 | 24 - 31 mmol/L | [facility] | | | | | | [facility] | | | | | | MEDICAL | | | | | | CENTER - | | | | | | LABORATORY | | + + + + + + | Anion Gap | 9 | 3 - 16 mmol/L | [facility] | | | | | | [facility] | | | | | | MEDICAL | | | | | | CENTER - | | | | | | LABORATORY | | + + + + + + | Glucose | 118 (H) | 70 - 109 mg/dL | [facility] | | | | | | [facility] | | | | | | MEDICAL | | | | | | CENTER - | | | | | | LABORATORY | | + + + + + + | BUN | 9 | 7 - 18 mg/dL | [facility] | | | | | | [facility] | | | | | | MEDICAL | | | | | | CENTER - | | | | | | LABORATORY | | + + + + + + | Creatinine | 0.56 (L) | 0.60 - 1.30 | [facility] | | | | | mg/dL | [facility] | | | | | | MEDICAL | | | | | | CENTER - | | | | | | LABORATORY | | + + + + + + | eGFR if not | >60Comment: GLOMERULAR | >=60 | [facility] | | | | FILTRATION | mL/min/1.73m2 | [facility] | | | [place] | RATE,ESTIMATED | | MEDICAL | | | | mL/min/1.90i8Pxyt than | | CENTER - | | | | 60 Chronic kidney | | LABORATORY | | | | disease,if found over a | | | | | | 3-month period.Less than | | | | | | 15 Kidney failureFor | | | | | | | | | | | | Americans,multiply the | | | | | | calculated GFR by 1.21. | | | | | | | | | | + + + + + + | Calcium | 8.1 (L) | 8.3 - 10.5 | [facility] | | | | | mg/dL | [facility] | | | | | | MEDICAL | | | | | | CENTER - | | | | | | LABORATORY | | + + + + + + | BUN/Creatin | 16.1 | | [facility] | | | ine Ratio | | | [facility] | | | | | | MEDICAL | | | | | | CENTER - | | | | | | LABORATORY | | + + + + + + + + | Specimen | + + | Blood | + + + + + + + | Performing | Address | City/State/Zipcode | Phone Number | | Organization | | | | + + + + + | [facility] | [address] | [place] | [phone] | | [facility] | | [address] | | | - LABORATORY | | | | + + + + + Urinalysis with Microscopic with Culture if Indicated (07/13/2018 5:36 AM PST) + + + + + + | Component | Value | Ref Range | Performed | Pathologist | | | | | At | Signature | + + + + + + | Color | Yellow | Light Yellow, | [facility] | | | | | Yellow, Straw | [facility] | | | | | | MEDICAL | | | | | | CENTER - | | | | | | LABORATORY | | + + + + + + | Clarity | Clear | Clear | [facility] | | | | | | [facility] | | | | | | MEDICAL | | | | | | CENTER - | | | | | | LABORATORY | | + + + + + + | pH, Urine | 5.0 | 5.0 - 8.0 | [facility] | | | | | | [facility] | | | | | | MEDICAL | | | | | | CENTER - | | | | | | LABORATORY | | + + + + + + | Specific | 1.018 | 1.001 - 1.030 | [facility] | | | [address] | | | [facility] | | | | | | MEDICAL | | | | | | CENTER - | | | | | | LABORATORY | | + + + + + + | Protein, | Negative | Negative | [facility] | | | Urine | | | [facility] | | | | | | MEDICAL | | | | | | CENTER - | | | | | | LABORATORY | | + + + + + + | Blood, | Moderate (A) | Negative | [facility] | | | Urine | | | [facility] | | | | | | MEDICAL | | | | | | CENTER - | | | | | | LABORATORY | | + + + + + + | Glucose, | Negative | Negative | [facility] | | | Urine | | | [facility] | | | | | | MEDICAL | | | | | | CENTER - | | | | | | LABORATORY | | + + + + + + | Ketones, | Negative | Negative | [facility] | | | Urine | | | [facility] | | | | | | MEDICAL | | | | | | CENTER - | | | | | | LABORATORY | | + + + + + + | Bilirubin, | Negative | Negative | [facility] | | | Urine | | | [facility] | | | | | | MEDICAL | | | | | | CENTER - | | | | | | LABORATORY | | + + + + + + | Nitrite, | Negative | Negative | [facility] | | | Urine | | | [facility] | | | | | | MEDICAL | | | | | | CENTER - | | | | | | LABORATORY | | + + + + + + | Leukocyte | Trace (A) | Negative | [facility] | | | Esterase, | | | [facility] | | | Urine | | | MEDICAL | | | | | | CENTER - | | | | | | LABORATORY | | + + + + + + | Urobilinoge | Negative | 0.2 mg/dL, 1.0 | [facility] | | | n, Urine | | mg/dL, Negative | [facility] | | | | | | MEDICAL | | | | | | CENTER - | | | | | | LABORATORY | | + + + + + + | WBC UA | 10-15 (A) | 0 - 2 /HPF | [facility] | | | | | | [facility] | | | | | | MEDICAL | | | | | | CENTER - | | | | | | LABORATORY | | + + + + + + | RBC UA | 5-10 (A) | 0 - 2 /HPF | [facility] | | | | | | [facility] | | | | | | MEDICAL | | | | | | CENTER - | | | | | | LABORATORY | | + + + + + + | SQUAMOUS | 0-2 | 0 - 2 /LPF | [facility] | | | EPITHELIAL | | | [facility] | | | UA | | | MEDICAL | | | | | | CENTER - | | | | | | LABORATORY | | + + + + + + | BACTERIA UA | Negative | Negative /HPF | [facility] | | | | | | [facility] | | | | | | MEDICAL | | | | | | CENTER - | | | | | | LABORATORY | | + + + + + + | URINE | Urine Culture Not | | [facility] | | | COMMENT | Indicated | | [facility] | | | | | | MEDICAL | | | | | | CENTER - | | | | | | LABORATORY | | + + + + + + + + | Specimen | + + | Urine - Urine | | specimen (specimen) | + + + + + + + | Performing | Address | City/State/Zipcode | Phone Number | | Organization | | | | + + + + + | [facility] | [address] | [place] | [phone] | | [facility] | | [address] | | | - LABORATORY | | | | + + + + + XR Hip Right 2-3 Views (07/12/2018 3:15 PM PST) + + | Specimen | + + | | + + + + + | Narrative | Performed At | + + + | External films for comparison only | [facility] | | | | | No results will be in the chart. | | + + + + +---------+ + + | Performing | Address | City/State/Zipcode | Phone Number | | Organization | | | | + +---------+ + + | [facility] | | | | + +---------+ + + LABS - EXTERNAL SCAN (07/12/2018 12:00 AM PST) + + + | Narrative | Performed At | + + + | Ordered by an | | | unspecified provider. | | + + + IMAGING REPORT - EXTERNAL SCAN (07/12/2018 12:00 AM PST) + + + | Narrative | Performed At | + + + | Ordered by an | | | unspecified provider. | | + + + ECG - EXTERNAL SCAN (07/12/2018 12:00 AM PST) + + + | Narrative | Performed At | + + + | Ordered by an | | | unspecified provider. | | + + + documented in this encounter Visit Diagnoses + + | Diagnosis | + + | Closed fracture of neck of right femur, initial encounter (HCC) | + + | Bronchiectasis without complication (HCC) Bronchiectasis without acute exacerbation | + + | Rheumatic aortic valve insufficiency | + + | Closed fracture of right hip, initial encounter (HCC) | + + | Atrial fibrillation with RVR (HCC) Atrial fibrillation | + + | Myocardial infarction type 2 (HCC) | + + documented in this encounter Administered Medications + +--------+ +--------+------+------+ | Medication Order | MAR | Action | Dose | Rate | Site | | | Action | Date | | | | + +--------+ +--------+------+------+ | acetaminophen (TYLENOL) tablet | Given | 07/17/20 | 650 mg | | | | 650 mg 650 mg, Oral, EVERY 4 | | 18 2:27 | | | | | HOURS PRN, Pain, or fever >= 38.6 | | PM PST | | | | | C (101.5 F), Starting Sat | | | | | | | 07/12/18 at 1939 | | | | | | + +--------+ +--------+------+------+ +-------+ +--------+---+---+ | Given | 07/16/20 | 650 mg | | | | | 18 4:25 | | | | | | PM PST | | | | +-------+ +--------+---+---+ | Given | 07/15/20 | 650 mg | | | | | 18 6:10 | | | | | | PM PST | | | | +-------+ +--------+---+---+ + +---+ | | | + +---+ | albuterol-ipratropium 2.5-0.5 | | | mg/3 mL nebulizer solution 3 mL | | | 3 mL, Nebulization, RT EVERY 4 | | | HOURS PRN, Shortness of Breath, | | | Starting 07/12/18 at 1939 | | + +---+ | | | + +---+ + +-------+ +-------+---+---+ | albuterol-ipratropium 2.5-0.5 | Given | 07/13/20 | 3 mLs | | | | mg/3 mL nebulizer solution 3 mL | | 18 8:47 | | | | | 3 mL, Nebulization, RT Q8H, First | | PM PST | | | | | dose on 07/12/18 at 2300 | | | | | | + +-------+ +-------+---+---+ +-------+ +-------+---+---+ | Given | 07/13/20 | 3 mLs | | | | | 18 3:57 | | | | | | PM PST | | | | +-------+ +-------+---+---+ | Given | 07/13/20 | 3 mLs | | | | | 18 7:45 | | | | | | AM PST | | | | +-------+ +-------+---+---+ +---+---+ | | | +---+---+ + +-------+ +-------+---+---+ | albuterol-ipratropium 2.5-0.5 | Given | 07/17/20 | 3 mLs | | | | mg/3 mL nebulizer solution 3 mL | | 18 10:23 | | | | | 3 mL, Nebulization, RT TID, First | | AM PST | | | | | dose (after last modification) | | | | | | | on Sat07/14/18 at 0900 | | | | | | + +-------+ +-------+---+---+ +-------+ +-------+---+---+ | Given | 07/16/20 | 3 mLs | | | | | 18 9:08 | | | | | | PM PST | | | | +-------+ +-------+---+---+ | Given | 07/16/20 | 3 mLs | | | | | 18 4:45 | | | | | | PM PST | | | | +-------+ +-------+---+---+ +---+---+ | | | +---+---+ + +-------+ +--------+---+---+ | aspirin EC tablet 325 mg 325 | Given | 07/15/20 | 325 mg | | | | mg, Oral, DAILY, First dose on | | 18 8:32 | | | | | 07/14/18 at 0700, Do not cut | | AM PST | | | | | or crush Give first dose within | | | | | | | 20 hours of surgery end time. | | | | | | | Nursing/Pharmacy to retime first | | | | | | | dose to 1900 for surgeries ending | | | | | | | between 2200 and 0900., | | | | | | | Post-op/Phase II | | | | | | + +-------+ +--------+---+---+ +-------+ +--------+---+---+ | Given | 07/14/20 | 325 mg | | | | | 18 6:33 | | | | | | AM PST | | | | +-------+ +--------+---+---+ +---+---+ | | | +---+---+ + +---------+ +-----+ +---+ | ceFAZolin (ANCEF, KEFZOL) 100 | New Bag | 07/15/ | 1 g | 20 mL/hr | | | mg/mL IV syringe 1 g 1 g, | | 18 6:05 | | | | | Intravenous, Administer over 30 | | AM PST | | | | | Minutes, EVERY 6 HOURS INTERVAL, | | | | | | | First dose on 07/13/18 at | | | | | | | 1300, For 3 doses, Start 8 hours | | | | | | | after previous dose. Last dose | | | | | | | to be given within 24 hours of | | | | | | | surgery end time., Post-op/Phase | | | | | | | II, Indications: Surgical | | | | | | | Prophylaxis | | | | | | + +---------+ +-----+ +---+ +---------+ +-----+ +---+ | New Bag | 07/15/20 | 1 g | 20 mL/hr | | | | 18 12:07 | | | | | | AM PST | | | | +---------+ +-----+ +---+ | New Bag | 07/14/20 | 1 g | 20 mL/hr | | | | 18 7:24 | | | | | | PM PST | | | | +---------+ +-----+ +---+ +---+---+ | | | +---+---+ + +---------+ +---+ +---+ | dextrose 5% and sodium chloride | New Bag | 07/12/20 | | 75 mL/hr | | | 0.45% with KCl 20 mEq/L (D5 07/23 | | 18 8:20 | | | | | NS + KCL 20) infusion at 75 | | PM PST | | | | | mL/hr, Intravenous, FIXED VOLUME | | | | | | | (see admin instruction), Starting | | | | | | | 07/12/18 at 2000, For 13 | | | | | | | hours, 1 liter, | | | | | | + +---------+ +---+ +---+ +---+---+ | | | +---+---+ + +-------+ +-------+---+---+ | dilTIAZem (CARDIZEM) injection | Given | 07/15/20 | 15 mg | | | | 15 mg 15 mg, Intravenous, ONCE, | | 18 10:05 | | | | | 07/15/18 at 1015, For 1 dose, | | AM PST | | | | | Keep in refrigerator., | | | | | | + +-------+ +-------+---+---+ +---+---+ | | | +---+---+ + +-------+ +-------+---+---+ | dilTIAZem (CARDIZEM) tablet 30 | Given | 07/16/20 | 30 mg | | | | mg 30 mg, Oral, EVERY 6 HOURS (4 | | 18 12:51 | | | | | times per day), First dose on | | PM PST | | | | | 07/15/18 at 1045 | | | | | | + +-------+ +-------+---+---+ +-------+ +-------+---+---+ | Given | 07/16/20 | 30 mg | | | | | 18 6:09 | | | | | | AM PST | | | | +-------+ +-------+---+---+ | Given | 07/15/20 | 30 mg | | | | | 18 11:45 | | | | | | PM PST | | | | +-------+ +-------+---+---+ +---+---+ | | | +---+---+ + +-------+ +-------+---+ + | enoxaparin (LOVENOX) 60 mg/0.6 | Given | 07/17/20 | 60 mg | | Abdomen- | | mL injection 60 mg 60 mg, | | 18 8:35 | | | LLQ | | Subcutaneous, EVERY 12 HOURS (2 | | AM PST | | | | | times per day), First dose on Tue | | | | | | | 07/15/18 at 1115 | | | | | | + +-------+ +-------+---+ + +-------+ +-------+---+ + | Given | 07/16/20 | 60 mg | | Abdomen- | | | 18 8:51 | | | RLQ | | | PM PST | | | | +-------+ +-------+---+ + | Given | 07/16/20 | 60 mg | | Abdomen- | | | 18 10:33 | | | LLQ | | | AM PST | | | | +-------+ +-------+---+ + +---+---+ | | | +---+---+ + +-------+ +-------+---+---+ | famotidine (PEPCID) injection | Given | 07/13/20 | 20 mg | | | | 20 mg 20 mg, Intravenous, 2 | | 18 1:28 | | | | | TIMES DAILY, First dose on Sat | | PM PST | | | | | 07/12/18 at 2000, For 2 doses, | | | | | | | Dilute 2 mL of famotidine with 8 | | | | | | | mL of normal saline to a final | | | | | | | concentration of 2 mg/mL. | | | | | | | Administer ordered dose over a | | | | | | | period of at least 2 minutes., | | | | | | + +-------+ +-------+---+---+ +-------+ +-------+---+---+ | Given | 07/12/20 | 20 mg | | | | | 18 8:20 | | | | | | PM PST | | | | +-------+ +-------+---+---+ +---+---+ | | | +---+---+ + +-------+ +--------+---+---+ | HYDROmorphone (DILAUDID) 1 | Given | 07/13/20 | 0.4 mg | | | | mg/mL injection 0.4-0.8 mg | | 18 8:24 | | | | | 0.4-0.8 mg, Intravenous, EVERY 2 | | AM PST | | | | | HOURS PRN, Pain, Starting Sat | | | | | | | 07/12/18 at 2110 | | | | | | + +-------+ +--------+---+---+ +-------+ +--------+---+---+ | Given | 07/13/20 | 0.5 mg | | | | | 18 5:44 | | | | | | AM PST | | | | +-------+ +--------+---+---+ | Given | 07/13/20 | 0.5 mg | | | | | 18 1:41 | | | | | | AM PST | | | | +-------+ +--------+---+---+ +---+---+ | | | +---+---+ + +-------+ +---------+---+---+ | ipratropium (ATROVENT) 500 | Given | 07/12/20 | 500 mcg | | | | mcg/2.5 mL nebulizer solution 500 | | 18 8:37 | | | | | mcg 500 mcg, Nebulization, RT | | PM PST | | | | | BID, First dose on 07/12/18 | | | | | | | at 2100, RT will administer., | | | | | | + +-------+ +---------+---+---+ +---+---+ | | | +---+---+ + +---------+ [...] +---+---+---+ +---+---+ | | | +---+---+ + + + +---+ +---+ | lactated ringers (LR) infusion | Rate/Dos | 07/14/20 | | 50 mL/hr | | | at 50 mL/hr, Intravenous, | e Change | 18 5:33 | | | | | CONTINUOUS, Starting 07/13/18 | | AM PST | | | | | at 1245, Post-op/Phase II | | | | | | + + + +---+ +---+ +---------+ +---+-------+---+ | New Bag | 07/13/20 | | 100 | | | | 18 1:28 | | mL/hr | | | | PM PST | | | | +---------+ +---+-------+---+ +---+---+ | | | +---+---+ + +-------+ +-------+---+---+ | metoprolol tartrate (LOPRESSOR) | Given | 07/16/20 | 25 mg | | | | tablet 25 mg 25 mg, Oral, 3 | | 18 4:24 | | | | | TIMES DAILY, First dose on Sat | | PM PST | | | | | 07/16/18 at 1445 | | | | | | + +-------+ +-------+---+---+ +---+---+ | | | +---+---+ + +-------+ +-------+---+---+ | metoprolol tartrate (LOPRESSOR) | Given | 07/17/20 | 50 mg | | | | tablet 50 mg 50 mg, Oral, 2 | | 18 8:35 | | | | | TIMES DAILY, First dose (after | | AM PST | | | | | last modification) on Wed | | | | | | | 07/16/18 at 2100 | | | | | | + +-------+ +-------+---+---+ +---+---+ | | | +---+---+ + +-------+ +------+---+---+ | ondansetron (ZOFRAN) injection | Given | 07/13/20 | 4 mg | | | | 4 mg 4 mg, Intravenous, EVERY 4 | | 18 8:25 | | | | | HOURS PRN, Nausea, Vomiting, | | AM PST | | | | | Starting 07/12/18 at 2104 | | | | | | + +-------+ +------+---+---+ +-------+ +------+---+---+ | Given | 07/12/20 | 4 mg | | | | | 18 9:21 | | | | | | PM PST | | | | +-------+ +------+---+---+ +---+---+ | | | +---+---+ + +-------+ +------+---+---+ | ondansetron (ZOFRAN) injection | Given | 07/13/20 | 4 mg | | | | 4 mg 4 mg, Intravenous, ONCE | | 18 12:01 | | | | | PRN, Nausea, Starting Sun | | PM PST | | | | | 07/13/18 at 1128, For 1 dose, | | | | | | | Recovery/Phase I | | | | | | + +-------+ +------+---+---+ +---+---+ | | | +---+---+ + +-------+ +-------+---+---+ | pantoprazole (PROTONIX) DR | Given | 07/17/20 | 40 mg | | | | tablet 40 mg 40 mg, Oral, DAILY | | 18 6:29 | | | | | BEFORE BREAKFAST, First dose on | | AM PST | | | | | 07/13/18 at 0730, Do not cut | | | | | | | or crush., Indication: GERD | | | | | | + +-------+ +-------+---+---+ +-------+ +-------+---+---+ | Given | 07/16/20 | 40 mg | | | | | 18 6:09 | | | | | | AM PST | | | | +-------+ +-------+---+---+ | Given | 07/15/20 | 40 mg | | | | | 18 6:05 | | | | | | AM PST | | | | +-------+ +-------+---+---+ +---+---+ | | | +---+---+ + +-------+ +--------+---+---+ | potassium chloride (Klor-Con | Given | 07/17/20 | 20 mEq | | | | M20) ER tablet 20 mEq 20 mEq, | | 18 10:56 | | | | | Oral, EVERY 2 HOURS, First dose | | AM PST | | | | | on [facility] 07/17/18 at 1045, For 2 | | | | | | | doses, Dose is every 2 hours for | | | | | | | 2 doses, OK to substitute liquid | | | | | | | formulation if better tolerated., | | | | | | | | | | | | | + +-------+ +--------+---+---+ +---+---+ | | | +---+---+ documented in this encounter
--- OUTSIDE RECORDS SUMMARY | ~2019-06-13 | XMS | Encounter Summary ---
Demographics + + + | Address | [address] | | | [place] [address] | + + + | Home Phone | | + + + | Preferred Language | Unknown | + + + | Marital Status | | + + + | Protestant Affiliation | 1041 | + + + [...] | | + + +---------+ + | Flushinggracie Red) | ECON | Unknown | | | Kalpesh | | | | + + +---------+ + Care Team Providers + +------+ + | Care Helper Maintenance Cleaning Name | Role | Phone | + [...] + + | 07/17/ | [facility] | [facility] Abdi Wallace | Follow-up | | 2018 | | ORTHOPEDIC SURGERY | MD Casandra [address] | | | | | [address] | [place], [place] | | | | | [place], [place] | [address] | | | | | [address] | | | | | | [phone] | | | +--------+ + + + [...] [place] | | | | | | [address] | | | | | | | | +--------+---------+ + + + | 11/04/ | Office | Pulmonology | Sukhjinder, | | | 2019 | Visit | | Windy Aldrich, | | | | | | MD [address] | | | | | | [place] | | | | | | [place] [address] | | | | | | [phone] | | | | | | | | +--------+---------+ + + + documented as of this encounter Visit Diagnoses Not on filedocumented in this encounter"
--- OUTSIDE RECORDS SUMMARY | ~2019-06-13 | XMS | Encounter Summary ---
Demographics + + + | Address | [address] | | | [place] [address] | + + + | Home Phone | | + + + | Preferred Language | Unknown | + + + | Marital Status | | + + + | Anabaptist Affiliation | 1041 | + + + | Race | Unknown | + + + | Ethnic Group | Unknown | + + + Author + + + | Author | [facility] | | | and [place] | + + + | Organization | [facility] | | | [...] Team Providers + +------+ + | Care Drilling Rig Operator Name | Role | Phone | + +------+ + | Mike Saucedo MD | PCP | | + +------+ + Encounter Details +--------+ + + + + | Date | Type | Department | Care Team | Description | +--------+ + + + + | 06/03/ | Hospital | [facility] GENER[facility] IP | Conversion | Diagnosis unknown | | 2018 | Encounter | [address]VERSION [address] | Transaction, | | | | [address] | Provider Unknown | | | | | [place], [place] | [phone] | | | | | [address] | | | | | | [phone] | | | +--------+ + + + [...] | | | | | [place] | | | | | | [address] | | | | | | | | +--------+---------+ + + + | 11/04/ | Office | Pulmonology | Sukhjinder, | | | 2019 | Visit | | Windy Aldrich, | | | | | | MD [address] | | | | | | [place], | | | | | | [place] [address] | | | | | | [phone] | | | | | | | [...]
--- OUTSIDE RECORDS SUMMARY | ~2019-06-13 | XMS | Encounter Summary ---
Demographics + + + | Address | [address] | | | [place] [address] | + + + | Home Phone | | + + + | Preferred Language | Unknown | + + + | Marital Status | | + + + | Restorationism Affiliation | 1041 | + + + | Race | Unknown | + + + | Ethnic Group | Unknown | + + + Author + + + | Author | [facility] | | | and [place] | + + + | Organization | [facility] | | | and [...] Providers + +------+ + | Care Commercial Singer Name | Role | Phone | + +------+ + | Mike Saucedo MD | PCP | | + +------+ + Encounter Details +--------+ + + + + | Date | Type | Department | Care Team | Description | +--------+ + + + + | 07/14/ | Imaging | [facility] | Provider, | | | 2018 | Exam | [facility] | MD [address] | | | | | IMAGING | [place] | | | | | [phone] | [place] [address] | | +--------+ + + + + [...] [place] | | | | | | [address] | | | | | | | | +--------+---------+ + + + | 11/04/ | Office | Pulmonology | Sukhjinder, | | | 2019 | Visit | | Windy Aldrich, | | | | | | [address] | | | | | | [place], | | | | | | [place] [address] | | | | | | [phone] | | | | | | | [...] Results XR Hip Right 2-3 Views (07/12/2018 3:15 [...]
--- OUTSIDE RECORDS SUMMARY | ~2019-06-13 | XMS | Encounter Summary ---
Demographics + + + | Address | [address] | | | [place] [address] | + + + | Home Phone [...] Team Providers + +------+ + | Care Pure Culture Operator Name | Role | Phone | + +------+ + | Mike Saucedo MD | PCP | | + +------+ + Encounter Details +--------+ + + + + | Date | Type | Department | Care Team | Description | +--------+ + + + + | 05/21/ | Hospital | [facility] | Conversion | Diagnosis unknown | | 2016 | Encounter | [address]VERSION [address] | Transaction, | | | | [address] | Provider Unknown | | | | | [place], [place] | [phone] | | | | | [address] | | | | | | [phone] | | | +--------+ + + + [...] [place] | | | | | | [address] | | | | | | | | +--------+---------+ + + + | 11/04/ | Office | Pulmonology | Sukhjinder, | | | 2019 | Visit | | Windy Aldrich, | | | | | | MD [address] | | | | | | [place] | | | | | | [place] [address] | | | | | | [phone] | | | | | | | [...]
--- OUTSIDE RECORDS SUMMARY | ~2019-06-13 | XMS | Encounter Summary ---
Demographics + + + | Address | [address] | | | [place] [address] | + + + | Home Phone | | + + + | Preferred Language | Unknown | + + + | Marital Status | | + + + | Taoism Affiliation | 1041 | + + + [...] | | + + +---------+ + | Emigrantgracie Red) | ECON | Unknown | | | Kalpesh | | | | + + +---------+ + Care Team Providers + +------+ + | Care Semiconductor Package Symbol Stamper Name | Role | Phone | + [...] Dx); Status | | | | [address] [facility] | [place] | post hip surgery | | | | [place] | [address] | | | | | [address] | | | | | | [phone] | | | +--------+ + + + [...] [place] | | | | | | [address] | | | | | | | | +--------+---------+ + + + | 11/04/ | Office | Pulmonology | Sukhjinder, | | | 2019 | Visit | | Windy Aldrich, | | | | | | [address] | | | | | | [place] | | | | | | [place] [address] | | | | | | [phone] | | | | | | | [...]
--- OUTSIDE RECORDS SUMMARY | ~2019-06-13 | XMS | Encounter Summary ---
Demographics + + + | Address | [address] | | | [place] [address] | + + + | Home Phone | | + + + | Preferred Language | Unknown | + + + | Marital Status | | + + + | Methodist Affiliation | 1041 | + + + [...] | | + + +---------+ + | Gerlawgracie Red) | ECON | Unknown | | | Kalpesh | | | | + + +---------+ + Care Team Providers + +------+ + | Care Edi Specialist Name | Role | Phone | + +------+ + | Mike Saucedo MD | PCP | | + +------+ + Encounter Details +--------+ + + + + | Date | Type | Department | Care Team | Description | +--------+ + + + + | 05/06/ Hospital | [facility] | Offenstein, | Cough | | 2013 | Encounter | MED CTR PULMONARY | Jenna George MD | | | | | FUNCTION [address] | | | | | | [place], | | | | | | [place] [address] | | | | | | [phone] | | | +--------+ + + + [...] [place] | | | | | | [id number] | | | | | | | | +--------+---------+ + + + | 11/04/ | Office | Pulmonology | Sukhjinder, | | | 2019 | Visit | | Windy Aldrich, | | | | | | MD [address] | | | | | | [place] | | | | | | [place] [address] | | | | | | [phone] | | | | | | | [...] | by: Jenna Maria MD 05/08/2014 15:11 [facility] | | | [facility] [...] | | Jenna Maria MD [facility]2014 [facility] | | Mike Saucedo | + + documented in this encounter Visit Diagnoses + + | Diagnosis | + + | Cough | + + documented in this encounter"
--- OUTSIDE RECORDS SUMMARY | ~2019-06-13 | XMS | Encounter Summary ---
Demographics + + + | Address | [address] | | | [place] [address] | + + + | Home Phone | | + + + | Preferred Language | Unknown | + + + | Marital Status | | + + + | Amish Affiliation | CAT | + + + [...] [id number], [place] | | | | | [address] | | + + + + + Care Team Providers + +------+ + | Care Placement Director Name | Role | Phone | + +------+ + PCP | Unavailable | + +------+ + Reason for Visit + + + | Reason | Comments | + + + | Erroneous Encounter | | | - Disregard | | + + + Encounter Details +--------+ + + + + | Date | Type | Department | Care Team | Description | +--------+ + + + + | 07// | Integrated [employer] Ic Layout Designer | [facility] | Doug March, | | | 2010 | | [facility] [address] | [address] | | | | | [address] | [address] | | | | | Mailcode: Center | [place], [place] | | | | | for Health and | [address] | | | | | [place] [address] | [phone] | | | | | [place], [place] | | | | | | [address] | | | | | | [phone] | | | +--------+ + + + [...]
--- OUTSIDE RECORDS SUMMARY | ~2019-06-13 | XMS | Encounter Summary ---
Demographics + + + | Address | [address] | | | [place] [address] | + + + | Home Phone | | + + + | Preferred Language | Unknown | + + + | Marital Status | | + + + | Gnosticist Affiliation | 1041 | + + + [...] Team Providers + +------+ + | Care Tin Dipper Name | Role | Phone | + +------+ + | Mike Saucedo MD | PCP | | + +------+ + Encounter Details +--------+ + + + + | Date | Type | Department | Care Team | Description | +--------+ + + + + | 02/28/ | Orders Only | [facility] | Narayan Talbert | | | 2014 | | [place] | MD Gael [address] | | | | | [address] | [address] | | | | | [address] [place], [place] | [place] [address] | | | | | [address] | [phone] | | | | | [phone] | | | +--------+ + + + [...] | | | | | | [facility] [facility] | | | | | | [address] | | | | | | | | +--------+---------+ + + + | 11/04/ | Office | Pulmonology | Sukhjinder, | | | 2019 | Visit | | Windy Aldrich, | | | | | | MD [address] | | | | | | [place], | | | | | | [place] [address] | | | | | | [phone] | | | | | | | [...] | with no evidence of stenosis. Right HOD CARRIER: The right common femoral | | | [...] | | no evidence of stenosis. Left HOD CARRIER: The left common femoral artery | | [...] | | cm/s ALFA PS: 158.21 cm/s HOD CARRIER AC: 60 deg HOD CARRIER AC: 53 deg | | | HOD CARRIER PS: 203.15 cm/s HOD CARRIER PS: 154.80 cm/s CAMI PS: 161.54 cm/s [...] PS: 117.68 cm/s Pop PS: 87.39 cm/s TARIFF EXPERT | | | AC: 60 deg TARIFF EXPERT AC: 60 deg TARIFF EXPERT PS: 184.73 cm/s TARIFF EXPERT PS: | | | 139.56 cm/s SFA [...] AO mid: 2.19 | | | cm Environmental Health Safety Manager: GLORIA Authenticated by: Cindy Fernandez MD, [facility] | | | Report Date/Time: -- [id number] | | + + + + + [...] with no evidence of | | stenosis.Right HOD CARRIER: The right common femoral artery is patent [...] no evidence of | | stenosis. Left HOD CARRIER: The left common femoral artery is patent [...] cmAO mid-dist: 1.96 cmAO mid: 2.19 cm Environmental Health Safety Manager: | | DHAuthenticated by: Cindy Fernandez MD, FACCReport Date/Time: -- | | [id number] IMPRESSION: 1. The abdominal aorta is very [...] cm/s | |ALFA PS: 158.21 cm/s | |HOD CARRIER AC: 60 deg | |HOD CARRIER AC: 53 deg | |HOD CARRIER PS: 203.15 cm/s | |HOD CARRIER PS: 154.80 cm/s | |CAMI PS: 161.54 [...] cm/s | |Pop PS: 87.39 cm/s | |TARIFF EXPERT AC: 60 deg | |TARIFF EXPERT AC: 60 deg | |TARIFF EXPERT PS: 184.73 cm/s | |TARIFF EXPERT PS: 139.56 cm/s | |SFA PS: 105.43 [...] |AO mid: 2.19 cm | | | |Environmental Health Safety Manager: GLORIA | |Authenticated by: Cindy Fernandez MD, [facility] | |Report Date/Time: -- [id number] | | | |IMPRESSION: | |1. The [...]
--- OUTSIDE RECORDS SUMMARY | ~2019-06-13 | XMS | Encounter Summary ---
Demographics + + + | Address | [address] | | | [place] [address] | + + + | Home Phone | | + + + | Preferred Language | Unknown | + + + | Marital Status | | + + + | Jehovah'S Witness Affiliation | 1041 | + + + | Race | Unknown | + + + | Ethnic Group | Unknown | + + + Author + + + | Author | [facility] | | | and [place] | + + + | Organization | [facility] | | | and [place] | + + + | Address | Unknown | + + + | Phone | Unavailable | + + + Support + + +---------+ + | Name | Relationship | Address | Phone | + + +---------+ + | Sade Beckwith | ECON | Unknown | | + + +---------+ + | Patongarcie Red) | ECON | Unknown | | | Kalpesh | | | | + + +---------+ + Care Team Providers + +------+ + | Care Maple Syrup Maker Name | Role | Phone | + +------+ + | Mike Saucedo MD | PCP | | + +------+ + Encounter Details +--------+ + + + + | Date | Type | Department | Care Team | Description | +--------+ + + + + | 05/07/ | Hospital | [facility] | Offenstein, | Cough | | 2014 | Encounter | MED CTR LABORATORY | Jenna George MD | | | | | [address] | | | | | | [place] | | | | | | [address] | | | | | | [phone] | | | +--------+ + + + [...] [place] | | | | | | [address] | | | | | | | | +--------+---------+ + + + | 11/04/ | Office | Pulmonology | Sukhjinder, | | | 2019 | Visit | | Windy Aldrich, | | | | | | MD [address] | | | | | | [place] | | | | | | [place] [address] | | | | | | [phone] | | | | | | | | +--------+---------+ + + + documented as of this encounter Procedures + +--------+ + + + | Procedure Name | Priori | Date/Time | Associated Diagnosis | Comments | | | ty | | | | + +--------+ + + + | BUN | Routin | 05/07/2014 | Cough | Results for this | | | e | 9:54 AM | | procedure are in the | | | | PDT | | results section. | + +--------+ + + + | CREATININE | Routin | 05/07/2014 | Cough | Results for this | | | e | 9:54 AM | | procedure are in the | | | | PDT | | results section. | + +--------+ + + + documented in this encounter Results Creatinine (05/07/2014 9:54 AM [...] | | | | mL/min/1.73m2 | [facility] | | | [facility] | | | MEDICAL | | | [...] + | [facility] | [address] | [place], [place] | [phone] | | [facility] | | [address] | | | - LABORATORY | | | | + + + + + | [facility] | [address] | [place], [place] | | | [facility] | | [address] | | | - LABORATORY | | | | + + + + + BUN (05/07/2014 9:54 AM PDT) + +-------+ + + + | Component | Value | Ref Range | Performed | Pathologist | | | | | At | Signature | + +-------+ + + + | BUN | 12 | 7 - 18 mg/dL | [facility] | | | | | | [facility] [address] | [place] | [phone] | | [facility] | | [address] | | | - LABORATORY | | | | + + + + + | [facility] | [address] | [place] | | | [facility] | | [address] | | | - LABORATORY | | | | + + + + + documented in this encounter Visit Diagnoses + + | Diagnosis | + + | Cough | + + documented in this encounter"
--- OUTSIDE RECORDS SUMMARY | ~2019-06-13 | XMS | Encounter Summary ---
Demographics + + + | Address | [address] | | | [place] [address] | + + + | Home Phone | | + + + | Preferred Language | Unknown | + + + | Marital Status | | + + + | Latter Day Affiliation | 1041 | + + + | Race | Unknown | + + + | Ethnic Group | Unknown | + + + Author + + + | Author | [facility] | | | and [place] | + + + | Organization | [facility] | | | and [place] | + + + | Address | Unknown | + + + | Phone | Unavailable | + + + Support + + +---------+ + | Name | Relationship | Address | Phone | + + +---------+ + | Sade Beckwith | ECON | Unknown | | + + +---------+ + | Pueblogracie Red) | ECON | Unknown | | | Kalpesh | | | | + + +---------+ + Care Team Providers + +------+ + | Care Property Utilization Manager Name | Role | Phone | + +------+ + | Mike Saucedo MD | PCP | | + +------+ + Reason for Visit +--------+ + | Reason | Comments | +--------+ + | Other | faxed albuterol rx to medicare | +--------+ + Encounter Details +--------+ + + + + | Date | Type | Department | Care Team | Description | +--------+ + + + + | 06/03/ | Documentati | [facility] | Matt Saxena, | Other (faxed | | 2019 | on | PULMONOLOGY [address] | Manager Of Pharmacy | albuterol rx to | | | | [address] | | medicare) | | | | [place], [place] | | | | | | [address] | | | | | | [phone] | | | +--------+ + + + [...] of this encounter Progress Notes Matt Saxena, Manager Of Pharmacy - 06/03/2019 3:01 PM PSTfaxed albuterol rx to medicar e Leeann mented in this encounter Plan of Treatment +--------+---------+ + + + | Date | Type | Specialty | Care Team | Description | +--------+---------+ + + + | 07/08/ | Office | Cardiology | Nannette Morrison, | | | 2018 | Visit | | MD [address] | | | | | | [place] | | | | | | [id number] | | | | | | | | +--------+---------+ + + + | 11/04/ | Office | Pulmonology | Sukhjinder, | | | 2019 | Visit | | Windy Aldrich, | | | | | | MD [address] | | | | | | [place] | | | | | | [place] [address] | | | | | | [phone] | | | | | | | | +--------+---------+ + + + documented as of this encounter Visit Diagnoses Not on filedocumented in this encounter"
--- OUTSIDE RECORDS SUMMARY | ~2019-06-13 | XMS | Encounter Summary ---
Demographics + + + | Address | [address] | | | [place] [address] | + + + | Home Phone | | + + + | Preferred Language | Unknown | + + + | Marital Status | | + + + | Methodist Affiliation | 1041 | + + + | Race | Unknown | + + + | Ethnic Group | Unknown | + + + Author + + + | Author | [facility] | | | and [place] | + + + | Organization | [facility] | | | [...] Team Providers + +------+ + | Care Title Specialist Name | Role | Phone | + +------+ + | Mike Saucedo MD | PCP | | + +------+ + Encounter Details +--------+ + + + + | Date | Type | Department | Care Team | Description | +--------+ + + + + | 06/04/ | Hospital | [facility] | [place], | Abnormal finding on | | 2013 | Encounter | [facility] | Jenna George MD | radiological | | | | [address] | | examination of | | | | [place] | | breast | | | | [address] | | | | | | [phone] | | | +--------+ + + + [...] [place] | | | | | | [id number] | | | | | | | | +--------+---------+ + + + | 11/04/ | Office | Pulmonology | Sukhjinder, | | | 2019 | Visit | | Windy Aldrich, | | | | | | MD [address] | | | | | | [place] | | | | | | [place] [address] | | | | | | [phone] | | | | | | | | +--------+---------+ + + + documented as of this encounter Procedures + +--------+ + + + | Procedure Name | Priori | Date/Time | Associated Diagnosis | Comments | | | ty | | | | + +--------+ + + + | MOHINDER TOMOSYN | Routin | 06/04/2014 | Abnormal finding | Results for this | | DIAGNOSTIC RIGHT | e | 1:08 PM | on radiological | procedure are in the | | | | PST | examination of | results section. | | | | | breast | | + +--------+ + + + documented in this encounter Results MOHINDER Tomosynthesis Diagnostic Right (06/04/2014 1:08 PM PST) + + | Specimen | + + | | + + + + + | Narrative | Performed At | + + + | DIGITAL DIAGNOSTIC MAMMOGRAM RIGHT BREAST WITH COMPUTER ASSISTED | MISCELANIOUS | | DIAGNOSIS AND TOMOSYNTHESIS: 06/04/2014 1:08 PM CLINICAL HISTORY: | LAB | | Conservatively treated right breast cancer 1997. Chest wall | | | nodularity seen incidentally on recent chest CT. Requested for | | | follow-up. COMPARISON: Chest CT 05/17/2014. Prior filmscreen | | | annual mammograms April 2013 and April 2014. FINDINGS: | | | Digital MLO and CC views of the right breast along with breast | | | tomosynthesis. The breast parenchyma is of scattered density. | | | Architectural distortion and scarring in the upper lateral right | | | breast at the patient's treatment site. This is the same area where | | | chest wall irregularity was seen. The amount of distortion and | | | scarring appears stable to prior mammograms, when allowing for | | | differences in technique. No new mass. Vascular calcifications with | | | no suspicious or clustered microcalcifications IMPRESSION - | | | BI-RADS category 2-benign. Stable post treatment scarring of the | | | posterior upper lateral right breast. RECOMMENDATION: Continue | | | annual screening. Report any changes. Dictated and Signed by: Ilan | | | MD Km Electronically signed: 06/04/2014 3:48 PM | | + + + + + | Procedure Note | + + | Jose, Rad Results In - 06/04/2014 3:51 PM PST DIGITAL DIAGNOSTIC MAMMOGRAM RIGHT | | BREAST WITH COMPUTER ASSISTED DIAGNOSIS ANDTOMOSYNTHESIS: 06/04/2014 1:08 PMCLINICAL | | HISTORY: Conservatively treated right breast cancer 1997. Chest wallnodularity seen | | incidentally on recent chest CT. Requested for follow-up.COMPARISON: Chest CT | | 05/17/2014. Prior filmscreen annual mammograms Aprilnd April 2014.FINDINGS: | | Digital MLO and CC views of the right breast along with breasttomosynthesis. The breast | | parenchyma is of scattered density. Architecturaldistortion and scarring in the upper | | lateral right breast at the patient'streatment site. This is the same area where chest | | wall irregularity was seen.The amount of distortion and scarring appears stable to prior | | mammograms, whenallowing for differences in technique. No new mass. Vascular | | calcifications withno suspicious or clustered microcalcificationsIMPRESSION - BI-RADS | | category 2-benign. Stable post treatment scarring of theposterior upper lateral right | | breast.RECOMMENDATION: Continue annual screening. Report any changes.Dictated and Signed | | by: Ilan Barbour MD Electronically signed: 06/04/2014 3:48 PM | |allowing for differences in technique. No new mass. Vascular calcifications with | |no suspicious or clustered microcalcifications | | | |IMPRESSION - BI-RADS category 2-benign. Stable post treatment scarring of the | |posterior upper lateral right breast. | | | |RECOMMENDATION: Continue annual screening. Report any changes. | | | |Dictated and Signed by: Ilan Barbour MD | | Electronically signed: 06/04/2014 3:48 PM | + + + +---------+ + + | Performing | Address | [facility] | Phone Number | | Organization | | | | + +---------+ + + | MISCELLANEOUS LAB | | | [phone] | + +---------+ + + | MISCELANIOUS LAB | | | [phone] | + +---------+ + + documented in this encounter Visit Diagnoses + + | Diagnosis | + + | Abnormal finding on radiological examination of breast | + + documented in this encounter"
--- OUTSIDE RECORDS SUMMARY | ~2019-06-13 | XMS | Encounter Summary ---
Demographics + + + | Address | [address] | | | [place] [address] | + + + | Home Phone | | + + + | Preferred Language | Unknown | + + + | Marital Status | | + + + | Temple Affiliation | CAT | + + + | Race | White | + + + | Ethnic Group | Not or | + + + Author + + + | Author | [facility] | + + + | Organization | [facility] | + + + | Address | Unknown | + + + | Phone | Unavailable | + + + Support + + + + + | Name | Relationship | Address | Phone | + + + + + | Jre Posey | ECON | [address] | | | | [place], [place] | | | | | [address] | | + + + + + Care Team Providers + +------+ + | Care Heel Attacher Name | Role | Phone | + +------+ + PCP | Unavailable | + +------+ + Encounter Details +--------+ + + + + | Date | Type | Department | Care Team | Description | +--------+ + + + + | 01/16/ | Abstract | [facility] | Doug March, | | | 2010 | | [facility] [address] | [address] | | | | | [address] | [address] | | | | | Mailcode: Center | [place], [place] | | | | | [facility] and | [address] | | | | | [facility], [facility] [address] | [phone] | | | | | [place], [place] | | | | | | [address] | | | | | | [phone] | | | +--------+ + + + [...]
--- OUTSIDE RECORDS SUMMARY | ~2019-06-13 | XMS | Encounter Summary ---
Demographics + + + | Address | [address] | | | [place] [address] | + + + | Home Phone | | + + + | Preferred Language | Unknown | + + + | Marital Status | | + + + | Orthodoxy Affiliation | 1041 | + + + | Race | Unknown | + + + | Ethnic Group | Unknown | + + + Author + + + | Author | [facility] | | | and [place] | + + + | Organization | [facility] | | | [...] Team Providers + +------+ + | Care Industrial Nurse Name | Role | Phone | + +------+ + | Mike Saucedo MD | PCP | | + +------+ + Encounter Details +--------+ + + + + | Date | Type | Department | Care Team | Description | +--------+ + + + + | 05/21/ | Hospital | [facility] | Conversion | Pain | | 2016 | Encounter | CONVERSION [address] | Transaction, | | | | | [address] | Provider Unknown | | | | | [place] | [phone] | | | | | [address] | | | | | | [phone] | | | +--------+ + + + [...] [place] | | | | | | [address] | | | | | | | | +--------+---------+ + + + | 11/04/ | Office | Pulmonology | Sukhjinder, | | | 2019 | Visit | | Windy Aldrich, | | | | | | MD [address] | | | | | | [place], | | | | | | [place] [address] | | | | | | [phone] | | | | | | | [...]
--- OUTSIDE RECORDS SUMMARY | ~2019-06-13 | XMS | Encounter Summary ---
Demographics + + + | Address | [address] | | | [place] [address] | + + + | Home Phone | | + + + | Preferred Language | Unknown | + + + | Marital Status | | + + + | Protestant Affiliation | CAT | + + + | Race | White | + + + | Ethnic Group | Not or | + + + Author + + + | Author | [facility] | + + + | Organization | [facility] | + + + | Address | Unknown | + + + | Phone | Unavailable | + + + Support + + + + + | Name | Relationship | Address | Phone | + + + + + | Jer Posey | ECON | [address] | | | | [place], [place] | | | | | [address] | | + + + + + Care Team Providers + +------+ + | Care [place] Constable Name | Role | Phone | + [...] Description | +--------+---------+ + + + | 10/25/ | Surgery | 6A Intra Op [facility] | Doug March, | LAPAROSCOPIC HIATAL | | 2011 | | [facility] | MD [address] | HERNIA REPAIR; | | | | Admitting Desk | [address] | PETER | | | | Located on the | [place], [place] | FUNDOPLICATION | | | | floor [address] | [address] | | | | | [address] | [phone] | | | | | [place], [place] | | | | | | [address] | | | +--------+---------+ + + + [...] + + + | Blood Pressure | 124/56 | 10/28/2011 11:00 AM | | | | | PDT | | + + + + + | Pulse | 77 | 10/28/2011 11:00 AM | | | | | PDT | | + + + + + | Temperature | 37.4 C (99.3 F) | 10/28/2011 11:00 AM | | | | | PDT | | + + + + + | Respiratory Rate | 16 | 10/28/2011 11:00 AM | | | | | PDT | | + + + + + | Oxygen Saturation | 95% | 10/28/2011 11:00 AM | IS used | | | | PDT | | + + + + + | Inhaled Oxygen | - | - | | | Concentration | | | | + + + + + | Weight | - | - | | + + + + + | Height | - | - | | + + + + + | Body Mass Index | - | - | | + + + + + documented in this encounter Discharge Summaries Andie Ponce - 10/28/2011 10:31 AM PDTFormatting of this note might be different f rom the original. INPATIENT PHYSICIAN DISCHARGE SUMMARY Author: ANNA MORALES Attending Physician: Doug March MD PCP: Mike Saucedo MD Admission Date: 10/26/2011 Discharge Date: 28 Oct 2011 Diagnoses Principal Final Diagnosis: 1. Hiatal hernia Additional diagnoses Atrial flutter Requiring metoprolol Procedures 1. Laparoscopic paraesophageal hernia repair with Peter fundoplication. Brief Hospital course Ms. Posey was admitted on 10/26/2011 for a laparoscopic paraesophageal hernia repair with Peter fundoplication done on 10/26/2011. Post operatively, she had a run of arrhythmia (atri al fibrillation) for which she was treated with 5mg Lopressor. She stayed overnight, and was tolerating a clear liquid diet the next day and full liquids by the evening of 10/27/2011. In the morning 10/27/2011 however, 's heart had the same arrhythmia again, an ECG wa s done. It showed atrial flutter. Her troponnin at that time was 0.01. Cardiology team advis ed that she be placed on po Metoprolol 25mg every 6 hours and Aspirin 325mg daily. After lulu ng placed on Metoprolol that morning, patient's heart rate returned to normal and did not go into any arrhythmias thereafter. She was ambulating well by the evening and was deemed fi t for discharge Saturday10/28/[address] Mckenna. Medications: Current Discharge Medication List START taking these medications Details acetaminophen 650 mg/20.3 mL Oral Solution Take 20.3 mL by mouth every four hours as needed . Indications: Fever, Pain Qty: 40.6 mL, Refills: 1 HYDROmorphone 1 mg/mL Oral Liquid Take 2 mL by mouth every four hours as needed. Qty: 473 mL, Refills: 0 metoprolol tartrate 25 mg Oral Tablet Take 1 Tab by mouth every six hours. Qty: 50 Tab, Refills: 1 STOP taking these medications omeprazole magnesium (PRILOSEC OTC) 20 mg Oral Tablet, Delayed Release (E.C.) Comments: Reason for Stopping: TETRACYCLINE HCL (TETRACYCLINE ORAL) Comments: Reason for Stopping: Diet Bariatric Dietary Restrictions- Please follow a diet with the following restrictions: PLEASE FOLLOW POST-PETER DIET INSTRUCTIONS YOU HAVE BEEN PROVIDED. -Full liquid diet x1 week -Blenderized/Pureed diet x 2 weeks -Post-Peter diet x 3 weeks MUST CRUSH ALL MEDICATIONS. NO CARBONATED BEVERAGES. AVOID USING STRAWS THEY CAN MAKE YOU BLOATED. It is very important to avoid retching and vomiting, please take anti-nausea medication a s needed to prevent this. . Activity Showers are permitted, no soaking in water (baths, jacuzzi, swimming) No heavy lifting, nothing greater than 10lbs. For 4-6 weeks (a gallon of milk is approximat janelle 8lbs.) NO DRIVING WHILE ON NARCOTICS. ACTIVITY: Walking will be your primary source of exercise. It is very important that you wa lk at least three times a day. These can be short walks that you can gradually increase over time as your strength improves. The majority of time should be spent out of bed. It is ok t o take naps if you are tired, but alternate napping with activity. CONSTIPATION: It is very important to avoid constipation and straining while trying to have a bowel movem ent. It is common to have constipation after surgery and while taking narcotics, however the re are several medications you can use to both prevent and relieve constipation. You can us e stool softeners (Colace a.k.a. Docusate Sodium) or laxatives (Senokot -stool softener + la xative; Miralax - laxative drink; Dulcolax - suppository). Please work toward having a bowel movement every 1-2 days. It is also important to stay hydrated as this will also help your bowel function. PAIN: It is expected that you will have pain after surgery, and it is important to manage this pa in so that you can increase your activity, sleep, and heal well from surgery. You are being sent home with a prescription for narcotic pain medication - this is to be taken NEEDED t ypically every 4-6 hours. You may also substitute/supplement the narcotic medication with Ty lenol for milder pain. DO NOT TO TAKE MORE THAN 4,000MG OF TYLENOL IN 24HOURS. Please take n ote if the narcotic you have been prescribed contains Tylenol (acetaminophen). Wound Care Abdominal laparoscopic incisions with skin glue - the glue will fall off on its own (like a scab) in 1-2 weeks. When showering, do not scrub sites, let water rinse all soapy residue o ff, pat area dry with a clean towel when finished. No need to apply any lotions or ointments to the sites.If you have any of the following:Difficulty breathing or unusual shortness of breathExcessive bleeding or drainage, or pus at the operative siteFevers (greater than 101.5 ) or chills Increased pain that is not relieved by pain medicationsPersistent nausea, vomiti ng, or severe diarrheaDuring normal business hours please call [facility] For 'after hours' URGENT problems please call the [facility] pattern generator operator at and ask for the "[facility] Surgery resident on-call" Destination: Destination: Home Condition on Discharge Good Vitals on discharge: BP 113/53, Pulse 83, Temperature 37.5 C (99.5 F), RR 16, SpO2 96%. Outstanding labs/studies: CBC with diff last 72 hours (or 3 results) Recent Labs Basename 10/27/11 1017 WBC 13.1* HB 13.4 HCT 39.3 PLT 212 NEUTROPERC -- BANDPCT -- LYMPHPERC -- MONOPERC -- BASOPERC -- EOSPERC -- Chemistries: Last 72 Hours (or 3 results): Recent Labs Basename 10/27/11 1017 NA 140 K 3.7 CL 104 BICARB 28 BUN 8 CR 0.64 GLU 102* CA 8.5* MG -- PO4 -- Discharging Physician: ANNA MORALES Attending Physician: Doug March MD documented in this en counter Discharge Instructions Instructions Amy Mckeon RN - 10/28/2011 Additional Instructions: Please call your doctor if you have any questions or concerns. Discharge Nurse: Amy Mckeon Date: 10/28/2011 Discharge Time: 11:29 AM documented in this encounter Progress Notes Doug March MD - 10/28/2011 6:46 AM PDTI saw and evaluated the patient. I agree with the findings and the plan of care as documented in the resident s note. Doug March M.D. [facility] ([facility]) Professor and Vice-Power Digger Operator of Surgery [employer] [facility] Chair for Pancreatic Disease Research Pancreatic/ HepatoBiliary and Foregut Working Groups Mail Code [id number] [address], [place]. [address] email: [email or web address] Andie Dick - 10/28/2011 6:46 AM PDT [facility] PROGRESS NOTE Date: 28 Oct 2011 Post-Op day #: 2 s/p LAPAROSCOPIC HIATAL HERNIA REPAIR and peter fundoplication INTERVAL EVENTS: No acute events overnight. No arrhythmias overnight. SUBJECTIVE: Patient w/o complaints. Tolerating full liquids well, ambulating MEDICATIONS: Current Inpatient Medications Medication Dose Route Frequency acetaminophen (aka TYLENOL) oral solution 650 mg 650 mg Oral Q4H PRN dextrose 5%-NaCl 0.9% IV infusion 75 mL/hr Intravenous CONTINUOUS enoxaparin (aka LOVENOX) injection 40 mg 40 mg Subcutaneous QNOON HYDROmorphone (aka DILAUDID) liquid 2 mg 2 mg Oral Q4H PRN ketorolac (aka TORADOL) injection 15 mg 15 mg Intravenous Q6H metoclopramide (aka REGLAN) injection 10-30 mg 10-30 mg Intravenous Q4H PRN metoprolol tartrate (aka LOPRESSOR) tablet 25 mg 25 mg Oral Q6H morphine injection Inj 1-4 mg 1-4 mg Intravenous Q2H PRN ondansetron (aka ZOFRAN) injection 4 mg 4 mg Intravenous Q12H ondansetron (aka ZOFRAN) injection 4 mg 4 mg Intravenous Q12H PRN promethazine (aka PHENERGAN) suppository 6.25-12.5 mg 6.25-12.5 mg Rectal Q4H PRN OBJECTIVE: Last Vitals: BP 106/37 | Pulse 54 | Temp 37.4 C (99.3 F) | RR 16 | SpO2 92% 24 Hour Vital Min/Max: Systolic (24hrs), Av mmHg, Min:100 mmHg, Max:140 mmHg Diastolic (24hrs), Av mmHg, Min:37 mmHg, Max:62 mmHg Pulse Av.5 Min: 54 Max: 112 Temp Av.5 C (99.5 F) Min: 36.8 C (98.3 F) Max: 38.4 C (101.2 F) Resp Av.5 Min: 16 Max: 20 SpO2 Av % Min: 92 % Max: 95 % Intake/Output Summary (Last 24 hours) at 10/28/11 0647 Last data filed at 10/28/11 0600 Gross per 24 hour Intake 1025 ml Output 1475 ml Net -450 ml UO 1475ml in 24hrs PO 700ml in 24hr Capillary Blood Glucose: 68-102 Last 102 Physical Exam: General: NAD, AAOx3. Chest: CTAB CV: RRR. Abdomen: NT, ND Incision c/d/i. soft Extremities: WWP, NT, Chemistries: Last 72 Hours (or 3 results): Recent Labs Basename 10/27/11 1017 NA 140 K 3.7 CL 104 BICARB 28 BUN 8 CR 0.64 CA 8.5* MG -- PO4 -- CBC with diff last 72 hours (or 3 results) Recent Labs Basename 10/27/11 1017 WBC 13.1* HB 13.4 HCT 39.3 PLT 212 NEUTROPERC -- BANDPCT -- LYMPHPERC -- MONOPERC -- BASOPERC -- EOSPERC -- ASSESSMENT and PLAN: Shireen Posey is a 71 y.o. female HD 2 with lap hernia repair, n issen fundoplication. Condition improving. Neuro - nil pains CVS - stable, no arrhythmias Resp - stable Abd - tolerating full liquid diet - good UO, maintain >30ml/hr Heme/Electrolytes - acceptable Glucose - well controlled musc - ambulating well Dispo - home today ANNA Morales MBBS [facility] [id number] [facility] [address] Andie Dick - 10/27/2011 6:16 AM PDT [facility] SURG[facility] PROGRESS NOTE Date: 27 Oct 2011 Post-Op day #: 1 s/p LAPAROSCOPIC HIATAL HERNIA REPAIR INTERVAL EVENTS: Patient had a fib post operatively and given 5mg lopressor. No other arrhy thmias overnight SUBJECTIVE: Patient with minimal pains, some burping. No nausea. Some soreness in abdomen MEDICATIONS: Current Inpatient Medications Medication Dose Route Frequency dextrose 5%-NaCl 0.9% IV infusion 75 mL/hr Intravenous CONTINUOUS enoxaparin (aka LOVENOX) injection 40 mg 40 mg Subcutaneous QNOON ketorolac (aka TORADOL) injection 15 mg 15 mg Intravenous Q6H metoclopramide (aka REGLAN) injection 10-30 mg 10-30 mg Intravenous Q4H PRN metoprolol (aka LOPRESSOR) injection 10 mg 10 mg Intravenous Q6H PRN metoprolol (aka LOPRESSOR) injection 5 mg 5 mg Intravenous Q6H morphine injection Inj 1-4 mg 1-4 mg Intravenous Q2H PRN ondansetron (aka ZOFRAN) injection 4 mg 4 mg Intravenous Q12H ondansetron (aka ZOFRAN) injection 4 mg 4 mg Intravenous Q12H PRN promethazine (aka PHENERGAN) suppository 6.25-12.5 mg 6.25-12.5 mg Rectal Q4H PRN OBJECTIVE: Last Vitals: BP 132/47 | Pulse 63 | Temp 36.8 C (98.2 F) | RR 18 | SpO2 97% 24 Hour Vital Min/Max: Systolic (24hrs), Av mmHg, Min:124 mmHg, Max:184 mmHg Diastolic (24hrs), Av mmHg, Min:36 mmHg, Max:92 mmHg Pulse Av.4 Min: 56 Max: 120 Temp Av.8 C (98.3 F) Min: 36.5 C (97.7 F) Max: 37.1 C (98.8 F) Resp Av.9 Min: 8 Max: 22 SpO2 Av.6 % Min: 95 % Max: 100 % Intake/Output Summary (Last 24 hours) at 10/27/11 0617 Last data filed at 10/27/11 0400 Gross per 24 hour Intake 2585 ml Output 760 ml Net 1825 ml UO 730ml/24hr NPO last night Capillary Blood Glucose: 68-102 Last 102 Physical Exam: General: NAD, AAOx3. Chest: CTAB CV: RRR. - at present Abdomen: NT, ND Incision c/d/i. soft Extremities: WWP, NT Chemistries: Last 72 Hours (or 3 results): Recent Labs Basename 10/24/11 1423 NA 139 K 3.5 CL 106 BICARB 27 BUN 11 CR 0.75 CA 9.2 MG -- PO4 -- CBC with diff last 72 hours (or 3 results) Recent Labs Basename 10/24/11 1423 WBC 8.3 HB 12.9 HCT 38.2 PLT 279 NEUTROPERC -- BANDPCT -- LYMPHPERC -- MONOPERC -- BASOPERC -- EOSPERC -- Liver Tests: Last 72 hours (or 3 results) Recent Labs Basename 10/24/11 1423 AST 15 ALT 11* TBILI 0.5 AP 81 ALB 3.8 TP 6.7 Microbiology:nil Imaging: CXR 10/25 Clear lung corona ASSESSMENT and PLAN: Shireen Posey is a 71 y.o. female HD 1 s/p LAPAROSCOPIC HIATAL H ERNIA REPAIR. Condition stable Neuro - morphine for pain - well controlled CVS- at 1045 today - patient started getting a bout of AFib - HR 122, BP 118/57, ECG was taken - showed atrial flutter Troponins taken, 5mg lopressor given IV Cards consulted - said that they will see patient to start metoprolol at 25mg po qhs Resp - stable Abd - started on clears this morning to continue To possibly change to fulls once tolerates clears For po pain meds - liquid - 730ml/24hrs good urine output thus far, maintain goal of 30ml/hr Heme/electrolytes - all within normal range [facility] - encourage ambulation . ANNA Morales MBBS [facility] [address] [facility] [address] [facility] [id number] Bibi Hadley MD - 10/26/2011 6:15 PM PDTCalled regarding the patient's HR which is intermittently up to 14 0 and per strip appears to be afib. EKG done, lopressor given. Plan is monitoring on telemet ry unit with IV lopressor. BIBI MCKENNA MD documented in this encounter Plan of Treatment Not on filedocumented as of this encounter Procedures + +--------+ + + + | Procedure Name | Priori | Date/Time | Associated Diagnosis | Comments | | | ty | | | | + +--------+ + + + | PROCEDURE NOTE | Routin | 08/26/2015 | | Results for this | | | e | 2:55 AM | | procedure are in the | | | | PST | | results section. | + +--------+ + + + | OPERATION RECORD | | 10/28/2011 | | Results for this | | | | 7:36 AM | | procedure are in the | | | | PDT | | results section. | + +--------+ + + + | 12 LEAD ECG | Routin | 10/27/2011 | | Results for this | | | e | 10:25 AM | | procedure are in the | | | | PDT | | results section. | + +--------+ + + + | TROPONIN I, PLASMA | Routin | 10/27/2011 | | Results for this | | | e | 10:24 AM | | procedure are in the | | | | PDT | | results section. | + +--------+ + + + | BASIC METABOLIC SET | Urgent | 10/27/2011 | | Results for this | | (NA, K, CL, TCO2, | | 10:17 AM | | procedure are in the | | BUN, CR, GLU, CA) | | PDT | | results section. | + +--------+ + + + | CBC ONLY | Urgent | 10/27/2011 | | Results for this | | | | 10:17 AM | | procedure are in the | | | | PDT | | results section. | + +--------+ + + + | X-RAY PORTABLE CHEST | Urgent | 10/26/2011 | | Results for this | | 1 VIEW | | 6:29 PM | | procedure are in the | | | | PDT | | results section. | + +--------+ + + + | 12 LEAD ECG | Urgent | 10/26/2011 | | Results for this | | | | 5:32 PM | | procedure are in the | | | | PDT | | results section. | + +--------+ + + + | LAPAROSCOPIC HIATAL | Electi | 10/26/2011 | Diaphragmatic | | | HERNIA REPAIR | ve | 2:25 PM | hernia without | | | | Surgic | PDT | mention of | | | | al | | obstruction or | | | | | | gangrene | | + +--------+ + + + | LAB REPORTS | | 10/26/2011 | | Results for this | | | | 12:00 AM | | procedure are in the | | | | PDT | | results section. | + +--------+ + + + | SURGICAL PATHOLOGY | Routin | 10/26/2011 | | Results for this | | | e | | | procedure are in the | | | | | | results section. | + +--------+ + + + documented in this encounter Results PROCEDURE NOTE (08/26/2015 2:55 AM PST) + + | Transcriptions | + + | Husam Hernandez - 11/01/2011 9:31 AM PDT | + + OPERATION RECORD (10/28/2011 7:36 AM PDT) + + | Transcriptions | + + | Bibi Mckenna MD - 10/27/2011 9:42 PM PDT [id number] | | [id number] MICHELLE MOORE | | [id number] Date: 10/26/2011 Attending Surgeon: Doug Castellano | | Rose Marie March Lapping Machine Operator(s): Jose Mckenna MD Preoperative | | Diagnosis(es):Paraesophageal hernia. Postoperative Diagnosis(es):Paraesophageal hernia. | | Procedures Performed:Laparoscopic paraesophageal hernia repair with Peter | | fundoplication. Anesthesia:General endotracheal anesthesia. Estimated Blood | | Loss:Minimal. Indications:The patient is a 71-year-old female who presented to Surgery | | Clinic withsymptoms of regurgitation and chest pain. She was worked up with an upperGI | | and EGD which revealed a large paraesophageal hernia. Given hersymptoms, she was | | counseled to undergo elective repair. The risks andbenefits of the operation were | | explained to the patient, and she wished toproceed. Procedure:The patient received | | prophylactic antibiotics within 30 minutes of the skinincision. SCD boots were placed | | prior to induction of general anesthesia.After induction of general anesthesia, both | | arms were tucked to the side.A Alarcon catheter was placed. The patient was placed in | | supine split legposition. The abdomen was prepped and draped in usual sterile | | fashion.Access to the abdomen was gained by means of a Veress needle placed in | | thesupraumbilical position. Placement was confirmed by aspiration test, whichwas | | negative for blood or succus and saline drop test which was positive.The abdomen was | | insufflated to 15 mmHg. An 11 mm trocar was placed 15 cmbelow the xiphoid process just | | to the left of midline. There was noevidence of bowel or vascular injury. A 12 mm | | trocar was placed 12 cm tothe left of the xiphoid process. Another 5 mm trocar was | | placed in theleft mid abdomen after some adhesions of the omentum to the abdominal | | wallwere taken down. The patient was then placed in steep reverseTrendelenburg | | position. A Johanna liver retractor was used to retractthe left lateral segment of | | the liver, which was placed by means of anepigastric stab incision. A 5 mm trocar was | | placed in the right upperquadrant. It was obvious on inspection of the hiatus that she | | had a largehiatal hernia. Dissection began by opening up the pars flaccida andfollowing | | this up to the right alvin. The right alvin was then dissectedinferiorly, and | | mediastinum was entered. The endothoracic fascia wasidentified and pushed upwards. The | | hernia sac was pulled downwards. Whilepulling down the hernia sac, the dissection | | proceeded along the anteriorridge of the alvin taking the hernia sac off the crura. When | | we werenearing the left crura, we decided then to take the short gastric vessels.These | | were taken with Harmonic scalpel and carried up to the left crura.The left crura was | | then incised, and the mediastinum was entered. Herniasac was retracted downward, and | | the endothoracic fascia was placed upward.Our dissection then met up with our anterior | | dissection. We carried ourmediastinal dissection anteriorly until all the hernia sac | | was reduced. Lily created a retroesophageal window. A [place] drain was placed | | aroundthe esophagus. The posterior hernia sac was then dissected off the aortaand | | reduced in the abdominal cavity. Next, a mediastinal dissectionwas undertaken to | | immobilize the esophagus as high as we could. At the endof this, we were left with a | | large hernia sac, which was resected and sentfor pathology. We measured the | | intraabdominal esophagus, and it wasgreater than 4 cm. We then proceeded to close the | | crura with 4 pledgeted 0Tycron sutures and 2 nonpledgeted 0 Tycron sutures. At this | | point, e39-Rhippy followed by a 56-Trinidadian Olvera dilator was passed down theesophagus. | | Over this, a floppy Peter fundoplication was constructed with3 sutures of 0 Tycron, | | each incorporated in the body of the muscular wallof the esophagus. The Pteer was | | approximately 2.5 cm in length and on theesophagus above the GE junction. The [place] | | drain was removed. TheMaloney dilator was removed. It should be noted that during | | thedissection, both the anterior and posterior vagus nerves were identifiedand | | preserved. The liver retractor and all ports were removed under directvision. The skin | | was closed with 4-0 Biosyn, and the patient was extubatedand transferred to recovery | | room in stable condition. Dr. March was present for the critical portions of the | | operation. MD Doug Clemente M.D.Professor and Vice-Power Digger Operator of | | SurgeryThe Zeb Hopkins Chair for Pancreatic Disease ResearchChildren'S Hospital [facility] | | [place] ([facility])Division of Gastrointestinal and General Surgery JF / [id number] / | | [id number] / [id number] / T: 10/27/2011 | |left mid abdomen after some adhesions of the omentum to the abdominal wall | |were taken down. The patient was then placed in steep reverse | |Trendelenburg position. A Johanna liver retractor was used to retract | |the left lateral segment of the liver, which was placed by means of an | |epigastric stab incision. A 5 mm trocar was placed in the right upper | |quadrant. It was obvious on inspection of the hiatus that she had a large | |hiatal hernia. Dissection began by opening up the pars flaccida and | |following this up to the right alvin. The right alvin was then dissected | |inferiorly, and mediastinum was entered. The endothoracic fascia was | |identified and pushed upwards. The hernia sac was pulled downwards. While | |pulling down the hernia sac, the dissection proceeded along the anterior | |ridge of the alvin taking the hernia sac off the crura. When we were | |nearing the left crura, we decided then to take the short gastric vessels. | |These were taken with Harmonic scalpel and carried up to the left crura. | |The left crura was then incised, and the mediastinum was entered. Hernia | |sac was retracted downward, and the endothoracic fascia was placed upward. | |Our dissection then met up with our anterior dissection. We carried our | |mediastinal dissection anteriorly until all the hernia sac was reduced. We | |then created a retroesophageal window. A [place] drain was placed around | |the esophagus. The posterior hernia sac was then dissected off the aorta | |and reduced in the abdominal cavity. Next, a mediastinal dissection | |was undertaken to immobilize the esophagus as high as we could. At the end | |of this, we were left with a large hernia sac, which was resected and sent | |for pathology. We measured the intraabdominal esophagus, and it was | |greater than 4 cm. We then proceeded to close the crura with 4 pledgeted 0 | |Tycron sutures and 2 nonpledgeted 0 Tycron sutures. At this point, a | |44-Trinidadian followed by a 56-Trinidadian Olvera dilator was passed down the | |esophagus. Over this, a floppy Peter fundoplication was constructed with | |3 sutures of 0 Tycron, each incorporated in the body of the muscular wall | |of the esophagus. The Peter was approximately 2.5 cm in length and on the | |esophagus above the GE junction. The [place] drain was removed. The | |Olvera dilator was removed. It should be noted that during the | |dissection, both the anterior and posterior vagus nerves were identified | |and preserved. The liver retractor and all ports were removed under direct | |vision. The skin was closed with 4-0 Biosyn, and the patient was extubated | |and transferred to recovery room in stable condition. | | | | | |Dr. March was present for the critical portions of the operation. | | | | | | | | | |Jose Mckenna MD | | | | | | | | | |Doug March M.D. | |Professor and Vice-Power Digger Operator of Surgery | |[employer] [facility] [employer] | |[facility] ([facility]) | |Division of Gastrointestinal and General Surgery | | | | | |JF / HS | |[id number] / [id number] / [phone] / | | | | | | | | | | | | | | | | | | | | | + + 12 LEAD ECG (10/27/2011 10:25 AM PDT) + + + + + + | Component | Value | Ref Range | Performed | Pathologist | | | | | At | Signature | + + + + + + | VENTRICULAR | 126 | BPM | [facility] | | | RATE | | | OF | | | | | | CARDIOLOGY | | + + + + + + | ATRIAL RATE | 330 | BPM | [facility] | | | | | | OF | | | | | | CARDIOLOGY | | + + + + + + | QRS | 76 | ms | [facility] | | | DURATION | | | OF | | | | | | CARDIOLOGY | | + + + + + + | QT | 342 | ms | [facility] | | | | | | OF | | | | | | CARDIOLOGY | | + + + + + + | QTC | 495 | ms | [facility] | | | | | | OF | | | | | | CARDIOLOGY | | + + + + + + | R AXIS | -5 | degrees | [facility] | | | | | | OF | | | | | | CARDIOLOGY | | + + + + + + | T AXIS | -8 | degrees | [facility] | | | | | | OF | | | | | | CARDIOLOGY | | + + + + + + | EKG | Atrial flutter with | | [facility] | | | DIAGNOSIS | variable A-V | | OF | | | | blockAbnormal ECG"I have | | CARDIOLOGY | | | | personally interpreted | | | | | | this report, either | | | | | | alone or with a | | | | | | trainee."Confirmed by | | | | | | NIKKIE ORTEGA ([id number]) on | | | | | | 10/28/2011 12:35:04 PM | | | | + + + + + + + + | Specimen | + + | | + + + + + | Narrative | Performed At | + + + | Please click | [facility] | | on view image for the detailed interpretation from [employer] results. | CARDIOLOGY | + + + + + + + + | Performing | Address | City/State/Zipcode | Phone Number | | Organization | | | | + + + + + | [facility] | [address] | [place], [place] | | | CARDIOLOGY | [address] | [address] | | + + + + + TROPONIN I, PLASMA (10/27/2011 10:24 AM PDT) + +-------+ + + + | Component | Value | Ref Range | Performed | Pathologist | | | | | At | Signature | + +-------+ + + + | TROPONIN I | 0.01 | <0.50 ng/mL | [facility] | | | | | [...] | + + + + + | [facility] | [address] | [place] [address] | | | PATHOLOGY | [address] | | | + + + + + BASIC METABOLIC SET (NA, K, CL, TCO2, BUN, CR, GLU, CA) (10/27/2011 10:17 AM PDT) + +---------+ + + + | Component | Value | Ref Range | Performed | Pathologist | | | | | At | Signature | + +---------+ + + + | GLUCOSE, | 102 (H) | 60 - 99 mg/dL | [facility] | | | PLASMA | | | DEPARTMENT | | | (LAB) | | | OF | | | | | | PATHOLOGY | | + +---------+ + + + | BUN, PLASMA | 8 | 6 - 20 mg/dL | [facility] | | | (LAB) | | | DEPARTMENT | | | | | | OF | | | | | | PATHOLOGY | | + +---------+ + + + | CREATININE | 0.64 | 0.60 - 1.10 | [facility] | | | PLASMA | | mg/dL | DEPARTMENT | | | (LAB) | | | OF | | | | | | PATHOLOGY | | + +---------+ + + + | SODIUM, | 140 | 134 - 143 | [facility] | | | PLASMA | | mmol/L | DEPARTMENT | | | (LAB) | | | OF | | | | | | PATHOLOGY | | + +---------+ + + + | POTASSIUM, | 3.7 | 3.4 - 5.0 | [facility] | | | PLASMA | | mmol/L | DEPARTMENT | | | (LAB) | | | OF | | | | | | PATHOLOGY | | + +---------+ + + + | CHLORIDE, | 104 | 97 - 108 mmol/L | [facility] | | | PLASMA | | | DEPARTMENT | | | (LAB) | | | OF | | | | | | PATHOLOGY | | + +---------+ + + + | TOTAL CO2, | 28 | 22 - 29 mmol/L | [facility] | | | PLASMA | | | DEPARTMENT | | | (LAB) | | | OF | | | | | | PATHOLOGY | | + +---------+ + + + | CALCIUM, | 8.5 (L) | 8.6 - 10.2 | [facility] | | | PLASMA | | mg/dL | DEPARTMENT | | | (LAB) | | | OF | | | | | | PATHOLOGY | | + +---------+ + + + | ANION GAP | 8 | 4 - 11 mmol/L | [facility] | | | | | | DEPARTMENT | | | | | | OF | | | | | | PATHOLOGY | | + +---------+ + + + + + | Specimen | + + | Blood - Blood | + + + + + + + | Performing | Address | City/State/Zipcode | Phone Number | | Organization | | | | + + + + + | [facility] | [address] | [place] [address] | | | PATHOLOGY | [address] | | | + + + + + CBC ONLY (10/27/2011 10:17 AM PDT) + + + + + + | Component | Value | Ref Range | Performed | Pathologist | | | | | At | Signature | + + + + + + | WHITE CELL | 13.1 (H) | 4.4 - 11.0 K/cu | [facility] | | | COUNT | | mm | DEPARTMENT | | | | | | OF | | | | | | PATHOLOGY | | + + + + + + | RED CELL | 4.31 | 4.00 - 5.20 | [facility] | | | COUNT | | M/cu mm | DEPARTMENT | | | | | | OF | | | | | | PATHOLOGY | | + + + + + + | HEMOGLOBIN | 13.4 | 12.0 - 16.0 | [facility] | | | | | g/dL | DEPARTMENT | | | | | | OF | | | | | | PATHOLOGY | | + + + + + + | HEMATOCRIT | 39.3 | 36.0 - 46.0 % | [facility] | | | | | | DEPARTMENT | | | | | | OF | | | | | | PATHOLOGY | | + + + + + + | MCV | 91.1 | 80.0 - 96.0 fL | [facility] | | | | | | DEPARTMENT | | | | | | OF | | | | | | PATHOLOGY | | + + + + + + | MCHC | 34.1 | 33.4 - 35.5 | [facility] | | | | | g/dL | DEPARTMENT | | | | | | OF | | | | | | PATHOLOGY | | + + + + + + | RDW | 13.9 | 11.5 - 15.0 % | [facility] | | | | | | DEPARTMENT | | | | | | OF | | | | | | PATHOLOGY | | + + + + + + | PLATELET | 212 | 150 - 400 K/cu | [facility] | | | COUNT | | mm | DEPARTMENT | | | | | | OF | | | | | | PATHOLOGY | | + + + + + + | PLATELET | Final Platelet Report. | | [facility] | | | COMMENTS | | | DEPARTMENT | | | | | | OF | | | | | | PATHOLOGY | | + + + + + + + + | Specimen | + + | Blood - Blood | + + + + + | Narrative | Performed At | + + + | * Corrected 10/27/11 11:38: JASMYNE ROBBINS, prev report: Not | [facility] | | reported | DEPARTMENT OF | | | PATHOLOGY | + + + + + + + + | Performing | Address | City/State/Zipcode | Phone Number | | Organization | | | | + + + + + | [facility] | [address] | [place] [address] | | | PATHOLOGY | [address] | | | + + + + + X-RAY PORTABLE CHEST 1 VIEW (10/26/2011 6:29 PM PDT) + + + + + + | Component | Value | Ref Range | Performed | Pathologist | | | | | At | Signature | + + + + + + | X-RAY | Portable chest. No | | | | | PORTABLE | comparisons. Large | | | | | CHEST 1 | hiatal hernia. | | | | | VIEW | Cardiomediastinal | | | | | | contour | | | | | | otherwiseunremarkable. | | | | | | Lungs are clear. | | | | | | Bilateral chest wall | | | | | | soft tissue gasis | | | | | | present. There is no | | | | | | pneumothorax or pleural | | | | | | effusion IMPRESSION: | | | | | | Bilateral dissecting | | | | | | chest wall soft tissue | | | | | | gas. No | | | | | | pneumothorax.Clear | | | | | | lungs. Hiatal hernia. | | | | | | Attending Radiologists: | | | | | | Nessa Tejeda M.D.Author: | | | | | | Nessa Tejeda M.D. I have | | | | | | personally viewed this | | | | | | procedure/exam, reviewed | | | | | | this report,and made | | | | | | changes to it where | | | | | | appropriate. | | | | | | Final/Electronically | | | | | | signed / Nessa Tejeda | | | | | | 10/26/2011 18:53 PM | | | | + + + + + + + + | Specimen | + + | | + + + +---------+ + + | Performing | Address | City/State/Zipcode | Phone Number | | Organization | | | | + +---------+ + + | [facility] | | | | | RADIOLOGY | | | | + +---------+ + + 12 LEAD ECG (10/26/2011 5:32 PM PDT) + + + + + + | Component | Value | Ref Range | Performed | Pathologist | | | | | At | Signature | + + + + + + | VENTRICULAR | 89 | BPM | [facility] | | | RATE | | | OF | | | | | | CARDIOLOGY | | + + + + + + | ATRIAL RATE | 129 | BPM | [facility] | | | | | | OF | | | | | | CARDIOLOGY | | + + + + + + | QRS | 80 | ms | [facility] | | | DURATION | | | OF | | | | | | CARDIOLOGY | | + + + + + + | QT | 402 | ms | [facility] | | | | | | OF | | | | | | CARDIOLOGY | | + + + + + + | QTC | 489 | ms | [facility] | | | | | | OF | | | | | | CARDIOLOGY | | + + + + + + | R AXIS | 16 | degrees | [facility] | | | | | | OF | | | | | | CARDIOLOGY | | + + + + + + | T AXIS | 24 | degrees | [facility] | | | | | | OF | | | | | | CARDIOLOGY | | + + + + + + | EKG | Multifocal atrial | | [facility] | | | DIAGNOSIS | tachycardiaAbnormal | | OF | | | | ECG"I have personally | | CARDIOLOGY | | | | interpreted this report, | | | | | | either alone or with a | | | | | | trainee."Confirmed by | | | | | | PARRISH CARTER ([id number]) on | | | | | | 10/26/2011 11:30:10 PM | | | | + + + + + + + + | Specimen | + + | | + + + + + | Narrative | Performed At | + + + | Please click | [facility] | | on view image for the detailed interpretation from [employer] results. | CARDIOLOGY | + + + + + + + + | Performing | Address | City/State/Zipcode | Phone Number | | Organization | | | | + + + + + | [facility] | [address] | [place], [place] | | | CARDIOLOGY | [address] | [address] | | + + + + + LAB REPORTS (10/26/2011 12:00 AM PDT) + + + | Narrative | Performed At | + + + | | | + + + + + | Transcriptions | + + | Husam Hernandez - 11/01/2011 9:31 AM PDT | + + SURGICAL PATHOLOGY (10/26/2011) + + + + + + | Component | Value | Ref Range | Performed | Pathologist | | | | | At | Signature | + + + + + + | SURGICAL | SOURCE OF SPECIMEN:A | | [facility] | | | PATHOLOGY | Hernia sac Final | | DEPARTMENT | | | | Pathologic | | OF | | | | Diagnosis:Hernia sac, | | PATHOLOGY | | | | 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 Alcazar | | | | | | Alessandro | | | | | | M.D./PathologistT:10/28/ | | | | | | 2011:tp Clinical | | | | | | History:The patient is a | | | | | | 71-year-old female with | | | | | | hernia. Gross | | | | | | Description:Received is | | | | | | 1 specimen fresh in a | | | | | | container labeled with | | | | | | the patient | | | | | | name(initials BL) and | | | | | | "hernia sac." Received | | | | | | fresh is a 5 x 3.5 x | | | | | | 0.9 cmsheet-like | | | | | | fragment of red tissue. | | | | | | One side of the tissue | | | | | | is smooth andthe other | | | | | | is slightly roughened. | | | | | | No suspicious lesions | | | | | | or masses arepresent. | | | | | | Cassette | | | | | | Index:[id number]:tp My | | | | | | electronic signature | | | | | | indicates that I have | | | | | | personally reviewed | | | | | | alldiagnostic slides, | | | | | | the gross and/or | | | | | | microscopic portion of | | | | | | thisreport and | | | | | | formulated the final | | | | | | diagnosis. | | | | | | Rendering Diagnostician: | | | | | | Ken Francois | | | | | | Sam | | | | | | rosa Signed 10/30/2011 | | | | | | 12:42PM | | | | + + + + + + + + | Specimen | + + | | + + + + + + + | Performing | Address | City/State/Zipcode | Phone Number | | Organization | | | | + + + + + | [facility] | [address] | [place] [address] | | | PATHOLOGY | [address] | | | + + + + + documented in this encounter Visit Diagnoses + + | Diagnosis | + + | Diaphragmatic hernia without mention of obstruction or gangrene | + + documented in this encounter Administered Medications + +--------+ +--------+------+---------+ | Medication Order | MAR | Action | Dose | Rate | Site | | | Action | Date | | | | + +--------+ +--------+------+---------+ | bupivacaine (PF) (aka | Given | 10/26/19 | 8.5 mL | | Abdomen | | MARCAINE,SENSORCAINE-MPF) | | 12 1:48 | | | | | injection INTRAPROCEDURE PRN, | | PM PDT | | | | | Starting 10/26/11 at 1348, | | | | | | | Until Sat10/26/11 at 1425 | | | | | | + +--------+ +--------+------+---------+ +---+---+ | | | +---+---+ documented in this encounter
--- OUTSIDE RECORDS SUMMARY | ~2019-06-13 | XMS | Encounter Summary ---
Demographics + + + | Address | [address] | | | [place] [address] | + + + | Home Phone | | + + + | Preferred Language | Unknown | + + + | Marital Status | | + + + | Muslim Affiliation | 1041 | + + + [...] Team Providers + +------+ + | Care Silvering Applicator Name | Role | Phone | + +------+ + | Mike Saucedo MD | PCP | | + +------+ + Encounter Details +--------+ + + + + | Date | Type | Department | Care Team | Description | +--------+ + + + + | 11/28/ | Hospital | [facility] | Conversion | Pain | | 2017 | Encounter | CONVERSION DE[address] | Transaction, | | | | | [address] | Provider Unknown | | | | | [facility] [place] | [phone] | | | | | [address] | | | | | | [phone] | | | +--------+ + + + [...] | | | | | [place] | | | | | | [address] | | | | | | | | +--------+---------+ + + + | 11/04/ | Office | Pulmonology | Sukhjinder, | | | 2019 | Visit | | Windy Aldrich, | | | | | | MD [address] | | | | | | [place], | | | | | | [place] [address] | | | | | | [phone] | | | | | | | | +--------+---------+ + + + documented as of this encounter Procedures + +--------+ + + + | Procedure Name | Priori | Date/Time | Associated Diagnosis | Comments | | | ty | | | | + +--------+ + + + | CT CHEST WO CONTRAST | Routin | 11/27/2016 | | Results for this | | | e | 12:03 AM | | procedure are in the | | | | PDT | | results section. | + +--------+ + + + documented in this encounter Results CT Chest wo Contrast (11/27/2016 12:03 AM PDT) + + | Specimen | + + | | + + + + + | Narrative | Performed At | + + + | This is a non-reportable procedure without a radiologist report and | | | is used for image storage only | | + + + + + | Procedure Note | + + | Mookie Garcia - 03/04/2019 6:34 PM PDT This is a non-reportable procedure | | without a radiologist report and isused for image storage only | + + documented in this encounter Visit Diagnoses + + | Diagnosis | + + | Pain Generalized pain | + + documented in this encounter"
--- OUTSIDE RECORDS SUMMARY | ~2019-06-13 | XMS | Encounter Summary ---
Demographics + + + | Address | [address] | | | [place] [address] | + + + | Home Phone [...] Team Providers + +------+ + | Care Assistant Professor Of Business Name | Role | Phone | + [...] + +--------+ + + + + | Canceled | | Radiology | Diagnoses | | [address] | | | | | Pulmonary | [place], | [place] | | | | | nodules | Jenna B, | [place], | | | | | Procedures | MD [address] | [place] [address] | | | | | CT Chest wo | [address] | Phone: | | | | | Contrast | [place], | [phone] | | | | | | [place] [address] | Fax: | | | | | | | [phone] | + +--------+ + + + + Reason for Visit + + + | Reason | Comments | + + + | Bronchitis | follow up | + + + Encounter Details +--------+---------+ + + + | Date | Type | Department | Care Team | Description | +--------+---------+ + + + | 10/02/ | Office | [facility] | [place], | Obstructive chronic | | 2016 | Visit | PULMONARY [address] | Jenna George MD | bronchitis ([facility]); | | | | [place], | | Bronchiectasis | | | | [place] [address] | | without complication | | | | [phone] | | ([facility]); | | | | | | Gastroesophageal | | | | | | reflux disease with | | | | | | esophagitis; | | | | | | Pulmonary nodules; | | | | | | Rheumatic aortic | | | | | | valve insufficiency | +--------+---------+ + + + Social History [...] + + + | Blood Pressure | 130/60 | 10/03/2015 9:45 AM | | | | | PDT | | + + + + + | Pulse | 72 | 10/03/2015 9:45 AM | | | | | PDT | | + + + + + | Temperature | - | - | | + + + + + | Respiratory Rate | - | - | | + + + + + | Oxygen Saturation | 100% | 10/03/2015 9:45 AM | | | | | PDT | | + + + + + | Inhaled Oxygen | - | - | | | Concentration | | | | + + + + + | Weight | 63 kg (138 lb 12.8 | 10/03/2015 9:45 AM | | | | oz) | PDT | | + + + + + | Height | 165.1 cm (5' 5") | 10/03/2015 9:45 AM | | | | | PDT | | + + + + + | Body Mass Index | 23.1 | 10/03/2015 9:45 AM | | | | | PDT | | + + + + + documented in this encounter Patient Instructions Patient Instructions Jenna Maria MD - 10/03/2015 10:41 AM PDTGo ahead and try th e sinus rinse daily, about an hour before bedtime. If this does not control the cough, call and we can reorder the nasalide or an equivalent. Try turning the adjustment on the Acapella as far towards the minus sign as possible and se e if it flutter consistently. Have breathing tests and CT scan next month. Stay on Spiriva once daily. documented in this encounter Progress Notes Jenna Maria MD - 10/03/2015 9:55 AM PDTFormatting of this note might be differe nt from the original. Pulmonary Follow Up HPI Shireen Posey is a 75 y.o. female patient of Mike Saucedo MD here today f or follow up of obstructive chronic bronchitis. At their last visit, we had continued her on Spiriva once daily. Since their last visit she feels like she has been doing pretty good. She notes he had some type of URI in August, with nasal congestion and coughing. She is currently on a regimen of Spiriva one capsule daily. She does feel like this medica tion regimen is working for them. She does not use a rescue inhaler at home. She returns to day for routine follow up. She does note that when she first gets up and goes to take a shower, she gets a sensation o f losing her energy, and feels a sinking type sensation inside of her, which she finds hard to describe. She has had episodes of pre syncope before, which she has felt like were attrib utable to her heart. She has not had any increase in dyspnea on exertion. She notes she has had difficulty with walking attributable to her knees lately. Currently she is able to walk 1/4 mile at her own pace on level ground. She is not exercising regularly. She has continued to do housework and is up all day doing something. She coughs on occasion, but is uncertain if this is from her stomach, her lungs or her nose . She notes a lot of post nasal drip and nasal drainage. She notes she coughs a lot when she lies down to go to bed. She is not waking up at night with short of breath. She does have a lot of post nasal drip when she lies down. She used her nasalide before, and felt like it w orked. She wants to try the sinus rinse instead. She has been evaluated for nocturnal oxygen and does not need to use it. We discontinued th is in March. She does not have symptoms of heartburn or reflux. 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 Rheumatic heart disease 1948 With murmur Rosacea Abnormal chest x-ray right and left consolidations or effusions GERD (gastroesophageal reflux disease) s/p fundoplication Atrial flutter (HCC) 2011 post operatively, treated with medication Gastroparesis 05/2012 Scoliosis Hiatal hernia repaired surgically Chronic sinusitis Carotid artery disease (HCC) carotid US 2009 50-69% mid L ICA stenosis Osteopenia 2007 Acute lateral meniscus tear of right knee 2007 Ruptured appendix 1960 Placenta previa Bronchiectasis ([facility]) Valvular heart disease Past Surgical History Past [...] of Education: N/A 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 Social History Main Topics Smoking status: Former Smoker -- 0.70 packs/day for 40 years Types: Cigarettes Quit date: 05/06/2009 Smokeless tobacco: Never Used Alcohol Use: No Drug Use: No Sexual Activity: None Other Topics Concern None Social History Narrative Lives: in [place] With: her Grew up: [place] previously lived in: [place] Exposure to toxic chemicals: DDT on crops and in well water, near to [facility] Exposure to asbestos: no Exposure to tuberculosis: no Has had a PPD or Quantiferon before: yes, negative Has pets at home: no Has ever owned birds: as a child, a pigeon Other animal exposures: not now Hobbies: scrapbooking, yardwork, gardening, baking, reading Allergies: No Known Allergies Medications: Outpatient Encounter Prescriptions as of 10/03/2015 Medication Sig Dispense Refill BABY ASPIRIN PO Take 81 mg by mouth. Calcium Carb-Cholecalciferol (CALCIUM 1000 + D PO) Take by mouth Daily. [DISCONTINUED] cholecalciferol (VITAMIN D-3) 2000 UNITS TABS Take 2,000 Units by mouth Daily. [DISCONTINUED] flunisolide (NASALIDE) 25 MCG/ACT (0.025%) SOLN INSTILL TWO SPRAYS IN EA CH NOSTRIL ONCE DAILY 25 mL 2 [DISCONTINUED] lisinopril (PRINIVIL,ZESTRIL) 2.5 MG tablet Take 2.5 mg by mouth Daily. metroNIDAOLE (METROLOTION) 0.75 % LOTN Apply 1 Application topically 2 times daily. Misc. Devices (ACAPELLA) MISC Dx: 494.0 NIGEL: 99 months Use as directed twice daily. 1 e ach 1 SPIRIVA HANDIHALER 18 MCG inhalation capsule INHALE CONTENT OF ONE CAPSULE BY MOUTH ONC E DAILY 30 capsule 5 No facility-administered encounter medications on file as of 10/03/2015. Review of Systems: General: []Weight loss/gain (over 10 lbs) []Fever/chills/sweats []Night sweats EENT: [x]Hearing loss - "Im getting harder of hearing" []Vision loss/change [x]Sinus congestio n/nasal drainage []Nosebleeds []Hoarseness Cardiac: []Chest pain []Palpitations/heart racing []Swelling of legs/ankles []Waking up at night s hort of breath []Difficulty sleeping flat Gastrointestinal: []Nausea/vomiting []Difficulty swallowing []Heartburn/acid reflux []Loss of appetite [x]A bdominal pain - has an appt with Dr. Nelson Urologic: []Blood in urine [x]Frequent urination at night []Burning/painful urination []Difficulty w ith urination Objective BP 130/60 mmHg | Pulse 72 | Ht 1.651 m (5' 5") | Wt 62.959 kg (138 lb 12.8 oz) | BMI 23.10 kg/m2 | SpO2 100% | ? No General Appearance: Alert, cooperative, no distress, appears stated age Head: Normocephalic, without obvious abnormality, atraumatic Eyes: PERRL, conjunctiva clear, no scleral icterus, EOM's intact Ears: Normal TM's, external auditory canals, normal acuity Nose: Nares normal, septum midline, mucosa diminished Mouth: No oral lesions or exudate Neck: Supple, symmetrical, no adenopathy Lungs: No accessory muscle use, breath sounds are diminished bilaterally with some crackl es at the left lung base and some airway musical noise on the right, no wheezes Chest Wall: No deformity Heart: Regular rate and rhythm, no murmur, rub or gallop Abdomen: Soft, non-tender, non-distended Extremities: No cyanosis, clubbing, trace bilateral lower extremity edema Pulses: Radial pulses 2+ and symmetric Skin: Warm and dry Lymph nodes: Cervical and supraclavicular nodes normal Data: Overnight oximetry was done on March 28, 2015 on room air and was reviewed and interpret ed in clinic today. It shows she spent 8 minutes 12 seconds with a saturation less than 88%. Immunization History Administered Date(s) Administered INFLUENZA, TRIVALENT PRESERVATIVE FREE (PED/ADOL/ADULT) 04/06/2014 INFLUENZA, UNSPECIFIED FORMULATION 05/20/2015 PNEUMOCOCCAL CONJUGATE 13-VALENT (PCV13) 03/11/2015 PNEUMOCOCCAL POLYSACCHARIDE 23-VALENT (PPSV23) 07/22/1992, 07/22/2010 TETANUS TOXOID ABSORBED, (ADOL/ADULT) 07/22/1995 ZOSTER, 1 DOSE (ADULT) 07/22/2010 Assessment ICD-10-CM ICD-9-CM 1. Obstructive chronic bronchitis (HCC) J44.9 491.20 Testing in April 2014 showed mild ob structive disease. Her current symptoms are not entirely clear, but worrisome to her, and sh damon reports some presyncopal events. I suggested we recheck her PFTs, especially in light of t he fact that she is exploring a valve replacement at some point. I doubt her symptoms (or he r pulmonary hypertension) are related to her pulmonary disease given normal nocturnal oxygen saturation, and only mild impairment on PFTs in 2013. * [facility] ([facility]) Pulmonary Function Testing - [facility] Referral 2. Bronchiectasis without complication (HCC) J47.9 494.0 Currently not having symptoms. 3. Gastroesophageal reflux disease with esophagitis K21.0 530.11 Controlled with lifestyle change, once daily ranitidine and s/p surgical repair. 4. Pulmonary nodules R91.8 793.19 Due for [address] scan next month, which is ord ered today. CT Chest wo Contrast 5. 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 She has an upcoming appointment with Dr. Talbert. She is apparently exploring having a va lve replacement, or at least being evaluated for this, based on her echo results from January, though his last recommendation was to follow this. Plan 1.Recheck PFTs. 2.Check routine chest CT scan follow up nodule. 3.Continue lifestyle modification to prevent reflux and once daily ranitidine. 4. Continue once daily Spiriva. She was advised to call if new pulmonary symptoms were to develop. Return to clinic in 3 months, or sooner with concerns. CC: Mike Saucedo MD Portions of this report were transcribed using voice recognition software. Every effort wa s made to ensure accuracy; however, inadvertent computerized lawn mower sharpener errors may be pre sent. documented in t his encounter Plan of Treatment +--------+---------+ + + + | Date | Type | Specialty | Care Team | Description | +--------+---------+ + + + | 07/08/ | Office | Cardiology | Nannette Morrison, | | | 2019 | Visit | | MD [address] | | | | | | [place] | | | | | | [address] | | | | | | | | +--------+---------+ + + + | 11/04/ | Office | Pulmonology | Sukhjinder, | | | 2020 | Visit | | Windy Aldrich, | | | | | | [address] | | | | | | [place], | | | | | | [place] [address] | | | | | | [phone] | | | | | | | [...] | | | MD Crow 10/30/2015 13:40 [facility] | | | [place] CC: Mike Saucedo MD | | + + + CT Chest wo Contrast (10/25/2015 9:43 AM PDT) + + | Specimen | + + | | + + + + + | Narrative | Performed At | + + + | EXAM: CT CHEST WO CONTRAST :10/25/2015 9:33 AM HISTORY: follow up | [facility] | | nodules COMPARISON: November 10, 2014 and May 17, 2014. | [facility] | | TECHNIQUE: Axial images are obtained from thoracic inlet to [facility] | | abdomen without contrast. DOSE: DLP 125 mGy-cm FINDINGS: | - IMAGING | | Lungs: Stable 5.6 mm noncalcified nodule in the left apex. Pleural | | | parenchymal irregularity in left apex also unchanged. The 2.9 mm | | | nodule in the anterior left upper lobe is not visualized today. | | | Area of groundglass density in the anterior left upper lobe is | | | stable. The right lung nodules described as a new on the most | | | recent comparison are not conspicuous today. There are stable | | | fibrotic changes in the lower lobes bilaterally. Bronchiectasis in | | | the right lower lobe associated with an area of pleural thickening, | | | unchanged. Fibrosis in the right middle lobe. No pleural effusion. | | | Heart and mediastinum: No interval development of mediastinal or | | | hilar lymphadenopathy. Stable appearing heart and great vessels. | | | This includes stable prominence of the thoracic aorta. Patulous | | | esophagus containing fluid like material. Postoperative changes at | | | the gastroesophageal junction. Chest wall: Scarring in the right | | | breast, a known finding. No interval development of axillary or | | | visible supraclavicular lymphadenopathy. Upper abdomen: Limited | | | noncontrast imaging of the upper abdomen is unremarkable and | | | unchanged. Bones: Scoliosis with associated spondylosis. No | | | interval compression deformities. No suspicious bone lesions. | | | IMPRESSION - Stable 5.8 mm nodule and adjacent pleural | | | parenchymal irregularities in the left apex. Stable groundglass | | | area of nodularity in the left apex. No new lung nodules. | | | Bronchiectasis and fibrosis in both lungs. Consider continued | | | follow-up. Dictated and Signed by: Marin Choudhury MD | | | Electronically signed: 10/25/2015 12:26 PM | | + + + + + | Procedure Note | + + | Jose, Rad Results In - 10/25/2015 12:29 PM PDT EXAM: CT CHEST WO CONTRAST :10/25/2015 | | 9:33 AMHISTORY: follow up nodulesCOMPARISON: November 10, 2014 and May 17, | | 2013.TECHNIQUE: Axial images are obtained from thoracic inlet to upper abdomenwithout | | contrast.DOSE: DLP 125 mGy-cm FINDINGS:Lungs: Stable 5.6 mm noncalcified nodule in the | | left apex. Pleural parenchymalirregularity in left apex also unchanged. The 2.9 mm | | nodule in the anteriorleft upper lobe is not visualized today. Area of groundglass | | density in theanterior left upper lobe is stable. The right lung nodules described as a | | newon the most recent comparison are not conspicuous today. There are stablefibrotic | | changes in the lower lobes bilaterally. Bronchiectasis in the rightlower lobe | | associated with an area of pleural thickening, unchanged. Fibrosis inthe right middle | | lobe. No pleural effusion.Heart and mediastinum: No interval development of mediastinal | | or hilarlymphadenopathy. Stable appearing heart and great vessels. This | | includesstable prominence of the thoracic aorta. Patulous esophagus containing | | fluidlike material. Postoperative changes at the gastroesophageal junction.Chest wall: | | Scarring in the right breast, a known finding. No intervaldevelopment of axillary or | | visible supraclavicular lymphadenopathy.Upper abdomen: Limited noncontrast imaging of | | the upper abdomen is unremarkableand unchanged. Bones: Scoliosis with associated | | spondylosis. No interval compressiondeformities. No suspicious bone lesions.IMPRESSION | | - Stable 5.8 mm nodule and adjacent pleural parenchymal irregularities in the leftapex. | | Stable groundglass area of nodularity in the left apex.No new lung | | nodules.Bronchiectasis and fibrosis in both lungs.Consider continued follow-up.Dictated | | and Signed by: Marin Choudhury MD Electronically signed: 10/25/2015 12:26 PM | |Heart and mediastinum: No interval development of mediastinal or hilar | |lymphadenopathy. Stable appearing heart and great vessels. This includes | |stable prominence of the thoracic aorta. Patulous esophagus containing fluid | |like material. Postoperative changes at the gastroesophageal junction. | | | |Chest wall: Scarring in the right breast, a known finding. No interval | |development of axillary or visible supraclavicular lymphadenopathy. | | | |Upper abdomen: Limited noncontrast imaging of the upper abdomen is unremarkable | |and unchanged. | | | |Bones: Scoliosis with associated spondylosis. No interval compression | |deformities. No suspicious bone lesions. | | | |IMPRESSION - | | | |Stable 5.8 mm nodule and adjacent pleural parenchymal irregularities in the left | |apex. Stable groundglass area of nodularity in the left apex. | | | |No new lung nodules. | | | |Bronchiectasis and fibrosis in both lungs. | | | |Consider continued follow-up. | | | |Dictated and Signed by: Marin Choudhury MD | | Electronically signed: 10/25/2015 12:26 PM | + + + + + + + | Performing | Address | City/State/Zipcode | Phone Number | | Organization | | | | + + + + + | [facility] | [address] | [place] | [phone] | | [facility] | | [id number] | | | - IMAGING | | | | + + + + + documented in this encounter Visit Diagnoses + + | Diagnosis | + + | Obstructive chronic bronchitis (HCC) Obstructive chronic bronchitis without | | exacerbation | + + | Bronchiectasis without complication (HCC) Bronchiectasis without acute exacerbation | + + | Gastroesophageal reflux disease with esophagitis | + + | Pulmonary nodules Other nonspecific abnormal finding of lung field | + + | Rheumatic aortic valve insufficiency | + + documented in this encounter
--- OUTSIDE RECORDS SUMMARY | ~2019-06-13 | XMS | Encounter Summary ---
Demographics + + + | Address | [address] | | | [place] [address] | + + + | Home Phone | | + + + | Preferred Language | Unknown | + + + | Marital Status | | + + + | Jehovah'S Witness Affiliation | 1041 | + + + | Race | Unknown | + + + | Ethnic Group | Unknown | + + + Author + + + | Author | [facility] | | | and [place] | + + + | Organization | [facility] | | | and [...] Team Providers + +------+ + | Care Team Lead Name | Role | Phone | [...] Hua PATEL | | | | | [phone] | [place] [address] | | +--------+ + + + + [...] [place] | | | | | | [address] | | | | | | | | +--------+---------+ + + + | 11/04/ | Office | Pulmonology | Sukhjinder, | | | 2019 | Visit | | Windy Aldrich, | | | | | | [address] | | | | | | [place], | | | | | | [place] [address] | | | | | | [phone] | | | | | | | [...]
--- OUTSIDE RECORDS SUMMARY | ~2019-06-13 | XMS | Encounter Summary ---
Demographics + + + | Address | [address] | | | [place] [address] | + + + | Home Phone | | + + + | Preferred Language | Unknown | + + + | Marital Status | | + + + | Alevism Affiliation | 1041 | + + + [...] | | + + +---------+ + | Weatoguegracie Red) | ECON | Unknown | | | Kalpesh | | | | + + +---------+ + Care Team Providers + +------+ + | Care Biztalk Developer Name | Role | Phone | + [...] + + | 06/03/ | Documentati | [facility] | Matt Sxaena, | Other (faxed | | 2019 | on | PULMONOLOGY [address] | Wheel Inspector | albuterol rx to | | | | [address] | | medicare) | | | | [place], [place] | | | | | | [address] | | | | | | [phone] | | | +--------+ + + + [...] of this encounter Progress Notes Matt Saxena, Wheel Inspector - 06/03/2019 3:01 PM PSTfaxed albuterol rx [...] [place] | | | | | | [address] | | | | | | | | +--------+---------+ + + + | 11/04/ | Office | Pulmonology | Sukhjinder, | | | 2019 | Visit | | Windy Aldrich, | | | | | | MD [address] | | | | | | [place] | | | | | | [place] [address] | | | | | | [phone] | | | | | | | | +--------+---------+ + + + documented as of this encounter Visit Diagnoses Not on filedocumented in this encounter"
--- OUTSIDE RECORDS SUMMARY | ~2019-06-13 | XMS | Encounter Summary ---
Demographics + + + | Address | [address] | | | [place] [address] | + + + | Home Phone | | + + + | Preferred Language | Unknown | + + + | Marital Status | | + + + | Christianity Affiliation | CAT | + + + | Race | White | + + + | Ethnic Group | Not or | + + + Author + + + | Author | [facility] | + + + | Organization | [facility] | + + + | Address | Unknown | + + + | Phone | Unavailable | + + + Support + + + + + | Name | Relationship | Address | Phone | + + + + + | Jer Posey | ECON | [address] | | | | [place], [place] | | | | | [address] | | + + + + + Care Team Providers + +------+ + | Care Pulp House Supervisor Name | Role | Phone | + +------+ + | Mike Saucedo MD | PCP | | + +------+ + Reason for Visit +---------+ + | Reason | Comments | +---------+ + | Surgery | requesting date for hernia surgery w/ March | +---------+ + Encounter Details +--------+ + + + + | Date | Type | Department | Care Team | Description | +--------+ + + + + | 04/23/ | Telephone | [facility] | Doug March, | Surgery (requesting | | 2010 | | Center at [facility] [address] | [address] | date for hernia | | | | [address] | [address] | surgery w/ Joaquim) | | | | Mailcode: [place] | [place], [place] | | | | | for Health and | [address] | | | | | [facility] | [phone] | | | | | [place], [place] | | | | | | [address] | | | | | | [phone] | | | +--------+ + + + [...]
--- OUTSIDE RECORDS SUMMARY | ~2019-06-13 | XMS | Encounter Summary ---
Demographics + + + | Address | [address] | | | [place] [address] | + + + | Home Phone | | + + + | Preferred Language | Unknown | + + + | Marital Status | | + + + | Denominational Affiliation | 1041 | + + + | Race | Unknown | + + + | Ethnic Group | Unknown | + + + Author + + + | Author | [facility] | | | and [place] | + + + | Organization | [facility] | | | and [place] | + + + | Address | Unknown | + + + | Phone | Unavailable | + + + Support + + +---------+ + | Name | Relationship | Address | Phone | + + +---------+ + | Sade Beckwith | ECON | Unknown | | + + +---------+ + | Loizagracie Red) | ECON | Unknown | | | Kalpesh | | | | + + +---------+ + Care Team Providers + +------+ + | Care Resident Care Supervisor Name | Role | Phone | [...] + + | 06/10/ | Telephone | [facility] | Jacqueline Sanchez, | Medication Question | | 2019 | | CARDIOLOGY [place] | Cyber Threat Analyst | ([employer] | | | | [address] | | [address] | | | | [address] [place] | | | | | | [place], [place] | | | | | | [address] | | | | | | [phone] | | | +--------+ + + + [...] [place] | | | | | | [address] | | | | | | | | +--------+---------+ + + + | 11/04/ | Office | Pulmonology | Sukhjinder, | | | 2019 | Visit | | Windy Aldrich, | | | | | | MD [address] | | | | | | [place] | | | | | | [place] [address] | | | | | | [phone] | | | | | | | | +--------+---------+ + + + documented as of this encounter Visit Diagnoses Not on filedocumented in this encounter"
--- OUTSIDE RECORDS SUMMARY | ~2019-06-13 | XMS | Encounter Summary ---
Demographics + + + | Address | [address] | | | [place] [address] | + + + | Home Phone | | + + + | Preferred Language | Unknown | + + + | Marital Status | | + + + | Restorationist Affiliation | 1041 | + + + | Race | Unknown | + + + | Ethnic Group | Unknown | + + + Author + + + | Author | [facility] | | | and [place] | + + + | Organization | [facility] | | | and [place] | + + + | Address | Unknown | + + + | Phone | Unavailable | + + + Support + + +---------+ + | Name | Relationship | Address | Phone | + + +---------+ + | Sade Post | ECON | Unknown | | + + +---------+ + | Troutdalegracie Red) | ECON | Unknown | | | Kalpesh | | | | + + +---------+ + Care Team Providers + +------+ + | Care Aircraft Engine Mechanic Name | Role | Phone | + +------+ + PCP | Unavailable | + +------+ + Encounter Details +--------+ + + + + | Date | Type | Department | Care Team | Description | +--------+ + + + + | 07/12/ | Hospital | [facility] | Jane Easley | Other Specified | | 2008 | Encounter | CONVERSION [address] | MD [address] | Pre-Operative | | | | [address] | [place]vd [place], [place] | Examination | | | | [place], [place] | [address] | | | | | [address] | [phone] | | | | | [phone] | | | +--------+ + + + [...] [place] | | | | | | [address] | | | | | | | | +--------+---------+ + + + | 11/04/ | Office | Pulmonology | Sukhjinder, | | | 2019 | Visit | | Windy Aldrich, | | | | | | [address] | | | | | | [place], | | | | | | [place] [address] | | | | | | [phone] | | | | | | | | +--------+---------+ + + + documented as of this encounter Visit Diagnoses + + | Diagnosis | + + | Other specified pre-operative examination | + + documented in this encounter"
--- OUTSIDE RECORDS SUMMARY | ~2019-06-13 | XMS | Encounter Summary ---
Demographics + + + | Address | [address] | | | [place] [address] | + + + | Home Phone | | + + + | Preferred Language | Unknown | + + + | Marital Status | | + + + | Methodist Affiliation | CAT | + + + | Race | White | + + + | Ethnic Group | Not or | + + + Author + + + | Author | [facility] | + + + | Organization | [facility] | + + + | Address | Unknown | + + + | Phone | Unavailable | + + + Support + + + + + | Name | Relationship | Address | Phone | + + + + + | Jer Posey | ECON | [address] | | | | | [place], [place] | | | | | [address] | | + + + + + Care Team Providers + +------+ + | Care Home Care Manager Name | Role | Phone | [...] | | | | | | [place], | | | | | | | [place] | | | | | | | [address] | | | | | | | Phone: | | | | | | | [phone] | | | | | | | Fax: | | | | | | | [phone] | +--------+--------+ + + + + Encounter Details +--------+---------+ + + + | Date | Type | Department | Care Team | Description | +--------+---------+ + + + | 11/20/ | Office | Digestive Health | Doug March, | GERD | | 2011 | Visit | [place] at [facility] [address] | MD [address] | (gastroesophageal | | | | AMANDA Miles | [address] | reflux disease) | | | | Mailcode: Center | [place], [place] | (Primary Dx) | | | | for Health and | [address] | | | | | [facility] 2 | [phone] | | | | | [place], [place] | | | | | | [address] | | | | | | [phone] | | | +--------+---------+ + + + [...] the resident s note. Doug March M.D. [facility] ([facility]) Professor and Vice-Wheel Adjuster of Surgery The [facility] for Pancreatic Disease Research Pancreatic/ HepatoBiliary and Foregut Working Groups Mail Code [id number] [address] [place], [place]. [address] email: [email or web address] Ran Dewitt MD - 08/2011 1:55 PM [...] Teodora for maintenance of pathway Darrick Kemp.,B.S. Gravure Printing Machinist Department of Surgery [place], [place] [id number] [phone] documented in this encoun ter Plan of Treatment Not on filedocumented as of this encounter Visit Diagnoses + + | Diagnosis | + + | GERD (gastroesophageal reflux disease) - Primary Esophageal reflux | + + documented in this encounter
--- OUTSIDE RECORDS SUMMARY | ~2019-06-13 | XMS | Clinical Summary ---
Demographics + + + | Address | [address] | | | [place] [address] | + + + | Home Phone | | + + + | Preferred Language | Unknown | + + + | Marital Status | | + + + | Sikh Affiliation | CAT | + + + | Race | White | + + + | Ethnic Group | Not or | + + + Author + + + | Author | [facility] | + + + | Organization | [facility] | + + + | Address | Unknown | + + + | Phone | Unavailable | + + + Support + + + + + | Name | Relationship | Address | Phone | + + + + + | Jer Posey | JENAE | [address] | | | | | [address] [place], [place] | | | | | [address] | | + + + + + Care Team Providers + +------+ + | Care Weatherization Installer Name | Role | Phone | + +------+ + | Mike Saucedo MD | PCP | | + +------+ + Source Comments BLAIRE is fully live on both [facility] and [facility] InPatient.[facility] Allergies No Known Allergies Medications + + [...] / Lot | + +------+------+ +--------+--------+--------+ | Liberty Pledget Ptfe 2.5cm X | | | CR BARD | | 07/21/ | [id number] | | 15cm - [id number]: Qty: | | | PERIPHERAL | | 2016 | / | | 1 on 10/26/2011 at [facility] | | | VASCULAR | | | [...] | B | | sent | | [place], [place] | | | | | | | | [address] | | + +--------+ +--------+ + +--------+ [...] | 1940 | [phone] | [place] [address] | | | zayda | | | [...]
--- OUTSIDE RECORDS SUMMARY | ~2019-06-13 | XMS | Encounter Summary ---
Demographics + + + | Address | [address] | | | [place] [address] | + + + | Home Phone [...] Team Providers + +------+ + | Care Lease Analyst Name | Role | Phone | + +------+ + PCP | Unavailable | + +------+ + Encounter Details +--------+ + + + + | Date | Type | Department | Care Team | Description | +--------+ + + + + | 06/15/ | Hospital | [facility] | | | | 1997 - | Encounter | MED CTR CANCER | | | | | | CENTER [address] | | | | 07/21/ | | [place] | | | | 1997 | | [address] | | | | | | [phone] | | | +--------+ + + + [...] [place] | | | | | | [address] | | | | | | | | +--------+---------+ + + + | 11/04/ | Office | Pulmonology | Sukhjinder, | | | 2019 | Visit | | Windy Aldrich, | | | | | | [address] | | | | | | [place], | | | | | | [place] [address] | | | | | | [phone] | | | | | | | | +--------+---------+ + + + documented as of this encounter Visit Diagnoses Not on filedocumented in this encounter"
--- OUTSIDE RECORDS SUMMARY | ~2019-06-13 | XMS | Encounter Summary ---
Demographics + + + | Address | [address] | | | [place] [address] | + + + | Home Phone | | + + + | Preferred Language | Unknown | + + + | Marital Status | | + + + | Anabaptism Affiliation | CAT | + + + | Race | White | + + + | Ethnic Group | Not or | + + + Author + + + | Author | [facility] | + + + | Organization | [facility] | + + + | Address | Unknown | + + + | Phone | Unavailable | + + + Support + + + + + | Name | Relationship | Address | Phone | + + + + + | Jer Posey | ECON | [address] | | | | [place], [place] | | | | | [address] | | + + + + + Care Team Providers + +------+ + | Care Material Analyst Name | Role | Phone | + +------+ + | Mike Saucedo MD | PCP | | + +------+ + Encounter Details +--------+ + + + + | Date | Type | Department | Care Team | Description | +--------+ + + + + | 04/30/ | Telephone | Digestive Health | Doug March, | | | 2010 | | [place] at [facility] [address] | [address] | | | | | AMANDA Miles | [facility] | | | | | Mailcode: Center | [place], [place] | | | | | [facility] and | [address] | | | | | [facility] 2 | [phone] | | | | | [place], [place] | | | | | | [address] | | | | | | [phone] | | | +--------+ + + + [...]
--- OUTSIDE RECORDS SUMMARY | ~2019-06-13 | XMS | Encounter Summary ---
Demographics + + + | Address | [address] | | | [place] [address] | + + + | Home Phone | | + + + | Preferred Language | Unknown | + + + | Marital Status | | + + + | Samaritan Affiliation | 1041 | + + + | Race | Unknown | + + + | Ethnic Group | Unknown | + + + Author + + + | Author | [facility] | | | and [place] | + + + | Organization | [facility] [...] Team Providers + +------+ + | Care Spiral Winder Name | Role | Phone | + [...] | Services | Closed | Matti | Warrick | | | Required | | fracture of | GIL Penny | [address] | | | | | right hip, | [address] [place] | | | | | initial | St [place] | [place], [place] | | | | | encounter | [place] | [address] | | | | | ([facility]) | [address] | Phone: | | | | | | Phone: | [phone] | | | | | | [phone] | Fax: | | | | | | Fax: | [phone] | | | | | | [phone] | | +--------+ + + + + [...] + + | 07/12/ | Hospital | [facility] | Nav Denson MD | Closed fracture of | | 2018 - | Encounter | MED CTR SURGICAL | [address] | right hip, initial | | | | [address] [place] | [place] | encounter ([facility]) | | 07/17/ | | [place] [address] | [address] | (Primary Dx); Closed | | 2017 | | [phone] | | fracture of neck of | | | | | | right femur, | | | | | | initial encounter | | | | | | (HCC); | | | | | | Bronchiectasis | | | | | | without complication | | | | | | ([facility]); Rheumatic | | | | | | aortic valve | | | | | | insufficiency; | | | | | | Atrial fibrillation | | | | | | with RVR ([facility]); | | | | | | Myocardial | | | | | | infarction type 2 | | | | | | ([facility]) | +--------+ + + + + Social [...] Bruce MD - 07/17/2018 12:[address] [facility] DISCHARGE SUMMARY Pt. Name/Age/: Shireen Martinez 78 [...] . aka: ULTRAM Unchanged Medications Details [facility] [place]: 494.0 NIGEL: 99 months Use [...] appointment in 7-10 days Contact information: [address] [facility] [place] [id number] Abdi Wallace MD. Specialty: Orthopedic Surgery Contact information: [address] [facility] [id number] RESULTS: Results for SHIREEN MARTINEZ ( ) [...] uIU/mL 1.71 Shireen Martinez ECHO Complete Order# [id number] Reading physician: Junito Ramirez MD Ordering physician: [...] UA Latest Ref Range: Clear Clear Specific [place] Latest Ref Range: 1.001 - 1.030 1.018 [...] has had previous atrial fibrillation associated with Parekr fundoplicati on about 10 years ago. I [...] signed by: Mahesh Bruce MD, 07/17/2018 12:52 [facility] Portions of this chart may have been created with [employer] voice recognition software. Occasi onal wrong-word or [...] mg of acetaminophen (Tylenol) per day. Hydrocodone-acetaminophen ([place] ) and Oxycodone-acetaminophen (Percocet) have 325 mg [...] red in back of calf PE or MN: sudden chest pain or trouble breathing Stroke: [...] help t he stool stay soft and qkrn-ot-qykc. Remember to drink plenty of fluids and fiber-containin g foods. If you do not have a bowel movement within two days of returning home, add milk of magnesi a 30 mL once each night and/or Miralax one capful (17 grams) dissolved in half a cup of wate r once daily for 3 days. These are available [id number]-[id number] at any drugstore. If you are still [...] 13:00 This note was dictated using the [employer] voice recognition system. Minor errors in grammar [...] E' Septal Velocity 8 cm/s MV Deceleration [place] 534.07 cm/s2 MV Deceleration Time 255.28 msec [...] 19:12 This note was dictated using the [employer] voice recognition system. Minor errors in grammar may have occurred Mahesh Holm MD - 07/16/2018 5:11 PM PST [facility] PMG Hospitalist Progress Note Shireen Martinez is [...] scheduled with her PCP to see a head bander and liner operator in the [facility] in December and advised her th at [...] options of Coumadin versus NOAC's. The patient's wqyfo4llnd score is 3-4 dependent upon whether or [...] as outlined above. Mahesh Bruce 07/16/2018 17:12 [facility] Portions of this chart may have been created with [employer] voice recognition software. Occasi onal wrong-word or [...] Mobilize to tolerance. Abdi Wallace MD Mahesh Homl MD - 07/15/2018 10:25 AM PSTFormatting of this note might be differen t from the original. [facility] facility[facility] Progress Note Shireen Martinez is a 78 [...] as outlined above. Mahesh Bruce 07/15/2018 10:26 [facility] Portions of this chart may have been created with [employer] voice recognition software. Occasi onal wrong-word or sound-alike substitutions may have occurred due to the inherent israel itations of voice recognition software. Please read the chart carefully and recognize, using context, where these substitutions have occurred Helen Lao MD - 11:[address] [facility] [place] HOSPITALIST PROGRESS NOTE Patient: Shireen Martinez : 1940: Age: 78 y.o. MedRec: [id number] Admission date: 07/12/2018 Hospital day # : [...] Stable. Has outpatient GI follow up at [facility]. #Acute blood loss anemia Likely 2/2 surgery. [...] rate 1L/min Helen Alves MD 07/14/2018 11:09 [facility] Matti Mcfadden PA -C - 07/14/2018 [...] 10:53 This note was dictated using the [employer] recognition system. Minor errors in grammar may have occurred Isi Valentine RRT - 07/14/2018 12:45 AM PSTPatient sleeps quietly, no distress apparent. Cannula in her nose, O2 at 1 lpm, Saturations at 95% HR 77. Helen Lao MD - 07/13/2018 5:52 PM PSTFormattevelyn g of this note might be different from the original. [place] HOSPITALIST PROGRESS NOTE Patient: Shireen Martinez : 1940: Age: 78 y.o. MedRec: [id number] Admission date: 07/12/2018 Hospital day # : [...] Stable. Has outpatient GI follow up at [facility]. FEN: gen Ppx: per ortho Disposition: pending [...] pH, Urine 5.0 5.0 - 8.0 Specific [place] 1.018 1.001 - 1.030 Protein, Urine Negative [...] rate 1L/min Helen Alves MD 07/13/2018 17:52 [facility] documented in this enco unter Plan of Treatment +--------+---------+ + + + | Date | Type | Specialty | Care Team | Description | +--------+---------+ + + + | 07/08/ | Office | Cardiology | JuanNannette feldman, | | | 2018 | Visit | | MD [address] | | | | | | [place] | | | | | | [address] | | | | | | | | +--------+---------+ + + + | 11/04/ | Office | Pulmonology | Sukhjinder, | | | 2019 | Visit | | Windy Aldrich, | | | | | | MD [address] | | | | | | [place], | | | | | | [place] [address] | | | | | | [phone] | | | | | | | [...] | | Referral | | | encounter ([facility]) | | + + +--------+ + + [...] [address] | [place] | [phone] | | [facility] | | [address] | | | - LABORATORY | | [...] mL/min/1.73m2 | [facility] | | | [facility] | RATE,ESTIMATED | | MEDICAL | | | | mL/min/1.13j8Nxiu than | | CENTER - | | [...] [address] | [place] | [phone] | | [facility] | | [address] | | | - LABORATORY | | [...] | | | | | | n [place] | | | | | + + [...] [address] | [place] | [phone] | | [facility] | | [address] | | | - LABORATORY | | [...] + | [facility] | [address] | [place] | [phone] | | [facility] | | [address] | | | - LABORATORY | | [...] [address] | [place] | [phone] | | [facility] | | [address] | | | - LABORATORY | | [...] | | | | | | [employer] | | | | | [...] [address] | [place] | [phone] | | [facility] | | [address] | | | - LABORATORY | | [...] | | | | | | [employer] | | | | | [...] [address] | [place] | [phone] | | [facility] | | [address] | | | - LABORATORY | | [...] | | | | | | [employer] | | | | | [...] + + | Performing | Address | City/State[facility] | Phone Number | | Organization | | | | + + + + + | [facility] | [address] | [place] | [phone] | | [facility] | | [address] | | | - LABORATORY | | [...] | | | | | | [employer] | | | | | [...] | + + + + + | [facility] | [address] | [place] | [phone] | | [facility] | | [address] | | | - LABORATORY | | [...] | | | | AMANDA CHACON MD ([id number]) | | | | | | on [...] [address] | [place] | [phone] | | [facility] | | [address] | | | - LABORATORY | | [...] [address] | [place] | [phone] | | [facility] | | [address] | | | - LABORATORY | | [...] | | nRBC | | K/uL | [facility] | | | | | | MEDICAL [...] [address] | [place] | [phone] | | [facility] | | [address] | | | - LABORATORY | | [...] + | [facility] | [address] | [place] | [phone] | | [facility] | | [address] | | | - LABORATORY | | [...] | mL/min/1.73m2 | [facility] | | | [place] | RATE,ESTIMATED | | MEDICAL | | | | mL/min/1.13n1Piam than | | CENTER - | | [...] [address] | [place] | [phone] | | [facility] | | [address] | | | - LABORATORY | | [...] [address] | [place] | [phone] | | [facility] | | [address] | | | - LABORATORY | | [...] [address] | [place] | [phone] | | [facility] | | [address] | | | - LABORATORY | | [...] + | [facility] | [address] | [place] | [phone] | | [facility] | | [address] | | | - LABORATORY | | [...] | | | | | | [facility] | | | | | | MEDICAL [...] mL/min/1.73m2 | [facility] | | | [place] | RATE,ESTIMATED | | MEDICAL | | | | mL/min/1.64a6Rtsm than | | CENTER - | | [...] [address] | [place] | [phone] | | [facility] | | [address] | | | - LABORATORY | | [...] - 1.030 | [facility] | | | [place] | | | [facility] | | [...] [address] | [place] | [phone] | | [facility] | | [address] | | | - LABORATORY | | [...] PST | | | | | on [facility] 07/17/18 at 1045, For 2 | [...]
--- OUTSIDE RECORDS SUMMARY | ~2019-06-13 | XMS | Encounter Summary ---
Demographics + + + | Address | [address] | | | [place] [address] | + + + | Home Phone | | + + + | Preferred Language | Unknown | + + + | Marital Status | | + + + | Yazidism Affiliation | 1041 | + + + | Race | Unknown | + + + | Ethnic Group | Unknown | + + + Author + + + | Author | [facility] | | | and [place] | + + + | Organization | [facility] | | | [...] Team Providers + +------+ + | Care Truss Maker Name | Role | Phone | + +------+ + | Mike Saucedo MD | PCP | | + +------+ + Encounter Details +--------+ + + + + | Date | Type | Department | Care Team | Description | +--------+ + + + + | 10/24/ | Hospital | [facility] | Offenstein, | Obstructive chronic | | 2016 | Encounter | MED CTR PULMONARY | Jenna George MD | bronchitis (HCC) | | | | FUNCTION [address] | | | | | [place], | | | | | | [place] [address] | | | | | | [phone] | | | +--------+ + + + [...] [place] | | | | | | [address] | | | | | | | | +--------+---------+ + + + | 11/04/ | Office | Pulmonology | Sukhjinder, | | | 2019 | Visit | | Windy Aldrich, | | | | | | MD [address] | | | | | | [place], | | | | | | [place] [address] | | | | | | [phone] | | | | | | | [...] | | ORDERS | | PDT | ([facility]) | results section. | + +--------+ + + + | PFT PULMONARY | ART | 10/30/2015 | Obstructive | Results for this | | FUNCTION TESTING | | 1:45 PM | chronic bronchitis | procedure are in the | | ORDERS | | PDT | ([facility]) | results section. | + +--------+ + + + | PFT PULMONARY | ART | 10/30/2015 | Obstructive | Results for this | | FUNCTION TESTING | | 1:45 PM | chronic bronchitis | procedure are in the | | ORDERS | | PDT | ([facility]) | results section. | + +--------+ + + + | PFT PULMONARY | ART | 10/30/2015 | Obstructive | Results for this | | FUNCTION TESTING | | 1:45 PM | chronic bronchitis | procedure are in the | | ORDERS | | PDT | ([facility]) | results section. | + +--------+ [...] | | | MD Crow 10[facility]30/2015 13:40 [facility] | | | [place] CC: Mike Saucedo MD | | + + + documented in this encounter Visit Diagnoses + + | Diagnosis | + + | Obstructive chronic bronchitis (HCC) Obstructive chronic bronchitis without | | exacerbation | + + documented in this encounter"
--- OUTSIDE RECORDS SUMMARY | ~2019-06-13 | XMS | Encounter Summary ---
Demographics + + + | Address | [address] | | | [place] [address] | + + + | Home Phone | | + + + | Preferred Language | Unknown | + + + | Marital Status | | + + + | Anglican Affiliation | 1041 | + + + | Race | Unknown | + + + | Ethnic Group | Unknown | + + + Author + + + | Author | [facility] | | | and [place] | + + + | Organization | [facility] | | | and [place] | + + + | Address | Unknown | + + + | Phone | Unavailable | + + + Support + + +---------+ + | Name | Relationship | Address | Phone | + + +---------+ + | Sade Beckwith | ECON | Unknown | | + + +---------+ + | Lavinagracie Red) | ECON | Unknown | | | [place] | | | | + + +---------+ + Care Team Providers + +------+ + | Care Contact Lens Edge Buffer Name | Role | Phone | + [...] 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
--- OUTSIDE RECORDS SUMMARY | ~2019-06-13 | XMS | Encounter Summary ---
Demographics + + + | Address | [address] | | | [place] [address] | + + + | Home Phone [...] + + | Author | [facility] | | | and [place] | + + + | Organization | [facility] | | | [...] Team Providers + +------+ + | Care Decorating Equipment Setter Name | Role | Phone | [...] + | 10/02/ | Office | [facility] | Matti Magallanes | S/P orthopedic | | 2018 | Visit | ORTHOPEDIC SURGERY | [address] | surgery, follow-up | | | | [address] [facility] | [facility] | exam (Primary Dx); | | | | [place], [place] | [place] [address] | Weakness of right | | | | [address] | [phone] | hip | | | | [phone] | | | +--------+---------+ + + + [...] Blood Pressure | - | - | | + + + + + | Pulse | - | - | | + [...] Weight | 63 kg (139 lb) | 10/02/2018 11:12 AM | | | | | PDT | | + + + + + | Height | 165.1 cm (5' 5") | 10/02/2018 11:12 AM | | | | | PDT | | + + + + + | Body Mass Index | 23.13 | 10/02/2018 11:12 AM | | | | | [...] encounter Progress Notes Matti Magallanes PA-C - 10/02/2018 11:30 AM PDTFormatting of this note might be differe nt from the original. Name:Shireen Posey Todays Date: 10/02/2018 Age: 78 y.o. PCP: Mike Saucedo MD Chief Complaint Patient presents with Post Op right hip hemiarthroplasty DOS 07/13/18 SUBJECTIVE: Patient returns today for postoperative visit of right total hip arthroplasty performed blade valencia of 3 months ago. This is she has no significant pain at the right hip to which most p leased. Describes that she does have some weakness and difficulty with normal activities se condary to weakness. She is not taking any prescribed nomr-kwo-aeressk pain medication. Cu rrent level pain is [...] right hip. We discussed this at do ceasar mcrae a formal course of outpatient physical therapy [...] program. This note was dictated using the [employer] [place] voice recognition system. Minor errors in grammar may have occurred. documented in t his encounter Plan of Treatment +--------+---------+ + + + | Date | Type | Specialty | Care Team | Description | +--------+---------+ + + + | 07/08/ | Office | Cardiology | Nannette Morrison, | | | 2018 | Visit | | MD [address] | | | | | | [place] | | | | | | [address] | | | | | | | | +--------+---------+ + + + | 11/04/ | Office | Pulmonology | Sukhjinder, | | | 2019 | Visit | | Windy Aldrich, | | | | | | MD [address] | | | | | | [place], | | | | | | [place] [address] | | | | | | [phone] | | | | | | | | +--------+---------+ + + + documented as of this encounter Visit Diagnoses + + | Diagnosis | + + | S/P orthopedic surgery, follow-up exam - Primary Follow-up examination, following | | other surgery | + + | Weakness of right hip | + + documented in this encounter
--- OUTSIDE RECORDS SUMMARY | ~2019-06-13 | XMS | Encounter Summary ---
Demographics + + + | Address | [address] | | | [place] [address] | + + + | Home Phone | | + + + | Preferred Language | Unknown | + + + | Marital Status | | + + + | Shinto Affiliation | 1041 | + + + | Race | Unknown | + + + | Ethnic Group | Unknown | + + + Author + + + | Author | [facility] | | | and [place] | + + + | Organization | [facility] | | | and [place] | + + + | Address | Unknown | + + + | Phone | Unavailable | + + + Support + + +---------+ + | Name | Relationship | Address | Phone | + + +---------+ + | Sade Beckwith | ECON | Unknown | | + + +---------+ + | Jarvisburggracie Red) | ECON | Unknown | | | Kalpesh | | | | + + +---------+ + Care Team Providers + +------+ + | Care Intake Assessor Name | Role | Phone | + +------+ + | Mike Saucedo MD | PCP | | + +------+ + Reason for Visit +--------+ + | Reason | Comments | +--------+ + | Other | cardiac surgeon | +--------+ + Encounter Details +--------+ + + + + | Date | Type | Department | Care Team | Description | +--------+ + + + + | 04/21/ | Telephone | [facility] [place] | Eulaliaenstein, | Other (cardiac | | 2015 | | PULMONARY [address] | Jenna George MD | surgeon) | | | | [place], | | | | | | [place] [address] | | | | | | [phone] | | | +--------+ + + + [...] | | | | | [place] | | | | | | [address] | | | | | | | | +--------+---------+ + + + | 11/04/ | Office | Pulmonology | Sukhjinder, | | | 2019 | Visit | | Windy Aldrich, | | | | | | MD [address] | | | | | | [place], | | | | | | [place] [address] | | | | | | [phone] | | | | | | | | +--------+---------+ + + + documented as of this encounter Visit Diagnoses Not on filedocumented in this encounter"
--- OUTSIDE RECORDS SUMMARY | ~2019-06-13 | XMS | Encounter Summary ---
Demographics + + + | Address | [address] | | | [place] [address] | + + + | Home Phone [...] + + | Author | [facility] | + + + | Organization | [facility] | + + + | Address | Unknown | + + + | Phone | Unavailable | + + + Support + + + + + | Name | Relationship | Address | Phone | + + + + + | Jer Posey | ECON | [address] | | | | | [place], [place] | | | | | [address] | | + + + + + Care Team Providers + +------+ + | Care Hitch Technician Name | Role | Phone | [...] Paraesophageal | | 2011 | Visit | [place] [facility] [address] | MD [address] | hernia (Primary Dx) | | | | [address] | [address] | | | | | Mailcode: Center | [place], [place] | | | | | [facility] and | [address] | | | | | [facility] [address] | [phone] | | | | | [place], [place] | | | | | | [address] | | | | | | [phone] | | | +--------+---------+ + + + [...] Mcneill RN - 10/24/2011 12:16 PM PDTEPICSPINPTPREOPINSTRUCTIONSP [facility] INFORMATION [facility] General Surgery Office Toll-free: ext [phone] Surgery Date: 10/26/11 Procedure: Laparoscopic paraesophageal hernia [...] the surgery. Please see the list below, doctors hospital has a list of products that [...] please call the General Surgery Office at [phone] for [id number]. PARKING Parking for patients and visitors is available in the [facility] Parking structure located across from the emergency department. Patient parking is available on level 1 and 3. [employer] red parking is available on the top level. CHECKING IN FOR SURGERY For Hospital Admission (in-patient) you will check in on the day of surgery at the [facility] g Department located on the 9th floor of [facility] TRANSPORTATION You will require transportation home on the day of discharge. Pain medications and physica l activity restrictions may limit your ability to drive safely. CANCELLING YOUR PROCEDURE Please notify the general surgery office at [phone] as soon as possible should you nee [...] prior to your surgery. PRODUCTS CONTAINING ASPIRIN Ely-Verdi, Anacin, Anexsia with Codeine, Andynos, Aspirin, Aspirin suppositories, Ascrip tin, Aspergum, Axotal, B-A-C, Baby Aspirin, Harley, BC Powder, Bexophene, Buffaprin, Bufferin , Buffinol, Cama-Arthritis Strength, Congespirin, [place], Coricidin, Damason, Darvon, Dristan, Leni-Gesic, Digel, Dolprin #3 Tablets, Donatab, Doxaphene, Duragesic, Easprin, Ecotrin, Emag rin Forte, Emiprin, Emprazil, Equagesic, Equazine M, Excedrin, Fiogesic, Fiorgen PH, Fiorice t, Fiorinal, 4-Way Cold Tablet Gemnisyn, Indocin, Liquprin, Lortab ASA, Magnaprin, Marnal, Meprobamate, Midol, Momentum, N orgesic, Nahma, Orphengesic, Pabalate, P-A-C, Percodan, Presalin, Robaxasil, Roxiprin, David eto, Salocol SK-65 Compound, Sine-Aid, Sine-Off,, [place], Supac, Talwin Compound, Trigesic, Tolectin , Traiminicin, Vanquish, ZORprin, Zomax PRODUCTS CONTAINING IBUPROFEN Advil, Aleve, Haltran, Medipren, Midol, Motrin, Naproxyn, Nuprin, Rufen OTHER PRODUCTS WHICH MAY PROMOTE BLEEDING Vitamin E, Gingko Biloba, Marine Fatty Acids, Jefferson-3 Fish Oil Supplements documented in this encounter Progress Notes Doug March MD - 11/09/2011 9:22 PM PDTI saw and evaluated the patient. I agree with the findings and the plan of care as documented in the resident s note. Doug March M.D. [facility] ([facility]) Professor and Vice-Players Club Representative of Surgery The Zeb Hopkins Chair for Pancreatic Disease Research Pancreatic/ HepatoBiliary and Foregut Working Groups Mail Code L223A [address], [place]. [address] email: [email or web address] Evan Hadley MD - 10/24/2011 4:54 PM WERNERShireen Posey is a 71 y.o. female who returns for preoperativ e evaluation of laparoscopic hiatal hernia repair. The patient presented to clinic back in [place] with symptoms of regurgitation and chest pain; she was worked up and scheduled for [facility] at the beginning of May. Due to a root canal then travel to [place], [place], her surgery has been delayed until [...] | + + + + + | [facility] DEPARTMENT | [address] | [place] [address] | | | PATHOLOGY | [address] [...] | + + + + + | [facility] | [address] | [place] [address] | | | PATHOLOGY | [address] [...] | | | DEPARTMENT | | | [place] | | | OF | | | [...] | + + + + + | [facility] | [address] | [place] [address] | | | PATHOLOGY | [address] | | | + + + + + documented in this encounter Visit Diagnoses + + | Diagnosis | + + | Paraesophageal hernia - Primary Diaphragmatic hernia without mention of obstruction | | or gangrene | + + documented in this encounter
--- OUTSIDE RECORDS SUMMARY | ~2019-06-13 | XMS | Encounter Summary ---
Demographics + + + | Address | [address] | | | [place] [address] | + + + | Home Phone | | + + + | Preferred Language | Unknown | + + + | Marital Status | | + + + | Episcopalian Affiliation | 1041 | + + + | Race | Unknown | + + + | Ethnic Group | Unknown | + + + Author + + + | Author | [facility] | | | and [place] | + + + | Organization | [facility] | | [...] Providers + +------+ + | Care Supervisor Kosher Dietary Service Name | Role | Phone | + [...] [facility] | MD Casandra [address] [facility] | Status post hip | | | | [address] [place] | [place], [place] | surgery | | | | [place], [place] | [address] | | | | | [address] | | | | | | [phone] | | | +--------+ + + + [...] 07/08/ | Office | Cardiology | Nannette oMrrison, | | | 2018 | Visit | | MD [address] | | | | | | [place] | | | | | | [address] | | | | | | | | +--------+---------+ + + + | 11/04/ | Office | Pulmonology | Sukhjinder, | | | 2019 | Visit | | Windy Aldrich, | | | | | | MD [address] | | | | | | [place] | | | | | | [place] [address] | | | | | | [phone] | | | | | | | [...]
--- OUTSIDE RECORDS SUMMARY | ~2019-06-13 | XMS | Encounter Summary ---
Demographics + + + | Address | [address] | | | [place] [address] | + + + | Home Phone [...] | + + +---------+ + | Sade Bcekwith | ECON | Unknown | | + + +---------+ + | Worthingtongracie Red) | ECON | Unknown | | | Kalpesh | | | | + + +---------+ + Care Team Providers + +------+ + | Care Bankruptcy Legal Assistant Name | Role | Phone | [...] | | | | [place] | | | | | | [address] | | | | | | [phone] | | | +--------+ + + + [...] [place] | | | | | | [address] | | | | | | | | +--------+---------+ + + + | 11/04/ | Office | Pulmonology | Sukhjinder, | | | 2019 | Visit | | Windy Aldrich, | | | | | | MD [address] | | | | | | [place] | | | | | | [place] [address] | | | | | | [phone] | | | | | | | | +--------+---------+ + + + documented as of this encounter Visit Diagnoses Not on filedocumented in this encounter"
--- OUTSIDE RECORDS SUMMARY | ~2019-06-13 | XMS | Encounter Summary ---
Demographics + + + | Address | [address] | | | [place] [address] | + + + | Home Phone | | + + + | Preferred Language | Unknown | + + + | Marital Status | | + + + | Rastafarian Affiliation | CAT | + + + | Race | White | + + + | Ethnic Group | Not or | + + + Author + + + | Author | [facility] | + + + | Organization | [facility] | + + + | Address | Unknown | + + + | Phone | Unavailable | + + + Support + + + + + | Name | Relationship | Address | Phone | + + + + + | Jer Posey | ECON | [address] | | | | | [place], [place] | | | | | [address] | | + + + + + Care Team Providers + +------+ + | Care Cpo Name | Role | Phone | + [...] + + + + | 10/25/ | Hospital | [address] | Doug March, | | | 2012 - | Encounter | [address] | [place] [address] [facility] | | | | | 12/UHS31 [facility] | [address] | | | 10/27/ | | [facility], | [place], [place] | | | 2011 | | [place] [address] | [address] | | | | | [phone] | [phone] | | | | | | | [...] 'after hours' URGENT problems please call the [facility] help desk operator at and ask for the "Blue [...] the resident s note. Doug March M.D. [facility] ([facility]) Professor and Vice-Data Warehousing Engineer of Surgery The Zeb Hopkins Chair for Pancreatic Disease Research Pancreatic/ HepatoBiliary and Foregut Working Groups Mail Code L223A [address] [place], [place]. [address] email: [email or web address] Andie Dick - 10/28/2011 6:46 AM PDT [...] Dispo - home today ANNA Morales MBBS [facility] [address]A [address] [id number] [facility] [address] [address] [facility] - 10/27/2011 6:16 AM PDT BLUE SURGERY [...] 30ml/hr Heme/electrolytes - all within normal range Musc - encourage ambulation . ANNA Morales MBBS [facility] [address] [facility] [address] Bibi Hadley MD - 10/26/2011 6:15 PM [...] + | Transcriptions | + + | David Faculty - 11/01/2011 9:31 AM PDT | + + OPERATION RECORD (10/28/2011 7:36 AM PDT) + + | Transcriptions | + + | Bibi Mckenna MD - 10/27/2011 9:42 PM PDT [id number] | | [id number] MICHELLE MOORE | | [phone] [id number] Date: 10/26/2011 Attending Surgeon: Doug Castellano | | Rose Marie March Leader Assembler(s): Jose Mckenna MD Preoperative | | Diagnosis(es):Paraesophageal [...] reduced. Lily created a retroesophageal window. A Rasheed drain was placed | | aroundthe esophagus. [...] Tycron sutures. At this | | point, v55-Rwgbus followed by a 56-Kittitian Olvera dilator was passed down theesophagus. | | Over this, a floppy Peter fundoplication was constructed with3 sutures of 0 Tycron, | | each incorporated in the body of the muscular wallof the esophagus. The Peter was | | approximately 2.5 cm in length and on theesophagus above the GE junction. The Rasheed | | drain was removed. TheMaloney dilator [...] | operation. MD Doug Clemente M.D.Professor and Vice-Data Warehousing Engineer of | | [facility] Zeb Hopkins Chair for Pancreatic Disease ResearchJefferson Memorial Hospital | [facility] ([facility])Division of Gastrointestinal and General Surgery JF / [id number] / | | [id number] / [id number] / T: 10/27/2011 | |left mid abdomen [...] | |then created a retroesophageal window. A Rasheed drain was placed around | |the esophagus. [...] Tycron sutures. At this point, a | |44-Kittitian followed by a 56-Kittitian Olvera dilator was passed down the | |esophagus. Over this, a floppy Peter fundoplication was constructed with | |3 sutures of 0 Tycron, each incorporated in the body of the muscular wall | |of the esophagus. The Peter was approximately 2.5 cm in length and on the | |esophagus above the GE junction. The Palmer drain was removed. The | |Olvera dilator [...] | |Doug March M.D. | |Professor and Vice-Data Warehousing Engineer of Surgery | |The Zeb Hopkins Chair for Pancreatic Disease Research | |[facility] ([facility]) | |Division of Gastrointestinal and General Surgery | | | | | |JF / HS | |[id number] / [id number] / [id number] / | | | | | | [...] | | | | | NIKKIE ORTEGA ([id number]) on | | | | | | 10/28/2011 12:35:04 PM | | | | + + + + + + + + | Specimen | + + | | + + + + + | Narrative | Performed At | + + + | Please click | [facility]PT [facility] | | on view image for the detailed interpretation from [employer] results. | CARDIOLOGY | + + + + + + + + | Performing | Address | City/State/Zipcode | Phone Number | | Organization | | | | + + + + + | [facility] | [address] | [place], [place] | | | CARDIOLOGY | [address] | [address] | | + + + + + [...] | + + + + + | [facility] DEPARTMENT | [address] | [place] [address] | | | PATHOLOGY | [address] [...] | + + + + + | [place] DEPARTMENT OF | [address] | [place] [address] | | | PATHOLOGY | [address] [...] + | * Corrected 10/27/11 11:38: JASMYNE COMMENTS, prev report: Not | [facility] | | reported | DEPARTMENT OF | | | PATHOLOGY | + + + + + + + + | Performing | Address | City/State/Zipcode | Phone Number | | Organization | | | | + + + + + | [facility] | [address] | [place] [address] | | | PATHOLOGY | [address] [...] view image for the detailed interpretation from [employer] results. | CARDIOLOGY | + + + + + + + + | Performing | Address | City/State/Zipcode | Phone Number | | Organization | | | | + + + + + | [facility] DEPT [facility] | [address] | [place], [place] | | | CARDIOLOGY | [address] | [address] | | + + + + + LAB REPORTS (10/26/2011 12:00 AM PDT) + + + | Narrative | Performed At | + + + | | | + + + + + | Transcriptions | + + | Husma Hernandez - 11/01/2011 9:31 AM PDT | [...] | | | | | | ResidentS. Inge | | | | | | Alessandro, | | | | | | M.D./PathologistT:10/28/ [...] | | | | | | rosa Kuhn 10/30/2011 | | | | | | 12:42PM | | | | + + + + + + + + | Specimen | + + | | + + + + + + + | Performing | Address | City/State/Zipcode | Phone Number | | Organization | | | | + + + + + | [facility] | [address] | [place] [address] | | | PATHOLOGY | [address] | | | + + + + + documented in this encounter Visit Diagnoses + + | Diagnosis | + + | Paraesophageal hernia Diaphragmatic hernia without mention of obstruction or gangrene | + + documented in this encounter Administered Medications + +--------+ +--------+------+------+ | Medication Order | MAR | Action | Dose | Rate | Site | | | Action | Date | | | | + +--------+ +--------+------+------+ | acetaminophen (aka TYLENOL) | Given | 10/27/19 | 650 mg | | | | oral solution 650 mg 650 mg, | | 12 2:45 | | | | | oral, EVERY 4 HOURS NEEDED, | | PM PDT | | | | | Starting 10/27/11 at 1304, | | | | | | | Until 10/28/11 at 1846, mild | | | | | | | pain | | | | | | + +--------+ +--------+------+------+ +---+---+ | | | +---+---+ + +---------+ + + +---+ | dextrose 5%-NaCl 0.9% IV | New Bag | 10/27/19 | 75 mL/hr | 75 mL/hr | | | infusion 75 mL/hr, intravenous, | | 12 7:04 | | | | | CONTINUOUS, Starting 10/26/11 | | AM PDT | | | | | at 1515, Until 10/28/11 at 1846 | | | | | | + +---------+ + + +---+ +---------+ + + +---+ | New Bag | 10/26/19 | 75 mL/hr | 75 mL/hr | | | | 12 6:00 | | | | | | PM PDT | | | | +---------+ + + +---+ +---+---+ | | | +---+---+ + +-------+ +-------+---+---+ | enoxaparin (aka LOVENOX) | Given | 10/28/19 | 40 mg | | | | injection 40 mg 40 mg, | | 12 11:44 | | | | | subcutaneous, EVERY NOON, First | | AM PDT | | | | | dose on 10/27/11 at 1200, Until | | | | | | | Discontinued | | | | | | + +-------+ +-------+---+---+ +-------+ +-------+---+---+ | Given | 10/27/19 | 40 mg | | | | | 12 11:23 | | | | | | AM PDT | | | | +-------+ +-------+---+---+ +---+---+ | | | +---+---+ + +-------+ +--------+---+---+ | fentaNYL citrate (PF) (aka | Given | 10/26/19 | 75 mcg | | | | SUBLIMAZE) injection 1 dose, | | 12 6:37 | | | | | Starting Sat10/26/11 at 1402, | | PM PDT | | | | | Until Sat10/26/11 at 1837 | | | | | | + +-------+ +--------+---+---+ +---+---+ | | | +---+---+ + +---------+ +-------+--------+---+ | ketorolac (aka TORADOL) | New Bag | 10/28/19 | 15 mg | mL/hr | | | injection 15 mg 15 mg, | | 12 5:39 | | | | | intravenous, EVERY 6 HOURS, 8 | | AM PDT | | | | | doses, First dose on Sat10/26/11 | | | | | | | at 2200, Last dose on Sat10/28/11 | | | | | | | at 1600 | | | | | | + +---------+ +-------+--------+---+ +---------+ +-------+--------+---+ | New Bag | 10/27/19 | 15 mg | mL/hr | | | | 12 9:48 | | | | | | PM PDT | | | | +---------+ +-------+--------+---+ | New Bag | 10/27/19 | 15 mg | mL/hr | | | | 12 3:55 | | | | | | PM PDT | | | | +---------+ +-------+--------+---+ +---+---+ | | | +---+---+ + +---------+ +------+--------+---+ | metoprolol (aka LOPRESSOR) | New Bag | 10/26/19 | 5 mg | mL/hr | | | injection 5 mg 5 mg, | | 12 5:15 | | | | | intravenous, ONCE, 1 dose, Fri | | PM PDT | | | | | 10/26/11 at 1730 | | | | | | + +---------+ +------+--------+---+ +---+---+ | | | +---+---+ + +---------+ +------+--------+---+ | metoprolol (aka LOPRESSOR) | New Bag | 10/27/19 | 5 mg | mL/hr | | | injection 5 mg 5 mg, | | 12 9:44 | | | | | intravenous, EVERY 6 HOURS, First | | AM PDT | | | | | dose on Sat10/26/11 at 2000, | | | | | | | Until Discontinued | | | | | | + +---------+ +------+--------+---+ +---------+ +------+--------+---+ | New Bag | 10/26/19 | 5 mg | mL/hr | | | | 12 10:00 | | | | | | PM PDT | | | | +---------+ +------+--------+---+ + +---+ | | | + +---+ | metoprolol (aka LOPRESSOR) | | | injection 1 dose, Starting Fri | | | 10/26/11 at 1723, Until Sat10/26/11 | | | at 1715 | | + +---+ | | | + +---+ + +-------+ +-------+---+---+ | metoprolol tartrate (aka | Given | 10/28/19 | 25 mg | | | | LOPRESSOR) tablet 25 mg 25 mg, | | 12 11:42 | | | | | oral, EVERY 6 HOURS, First dose | | AM PDT | | | | | on 10/27/11 at 1045, Until | | | | | | | Discontinued | | | | | | + +-------+ +-------+---+---+ +-------+ +-------+---+---+ | Given | 10/27/19 | 25 mg | | | | | 12 5:43 | | | | | | PM PDT | | | | +-------+ +-------+---+---+ | Given | 10/27/19 | 25 mg | | | | | 12 11:25 | | | | | | AM PDT | | | | +-------+ +-------+---+---+ +---+---+ | | | +---+---+ + +---------+ +------+--------+---+ | ondansetron (aka ZOFRAN) | New Bag | 10/28/19 | 4 mg | mL/hr | | | injection 4 mg 4 mg, | | 12 9:25 | | | | | intravenous, EVERY 12 HOURS, 4 | | AM PDT | | | | | doses, First dose on 10/26/11 | | | | | | | at 2000, Last dose on 10/28/11 | | | | | | | at 0800 | | | | | | + +---------+ +------+--------+---+ +---------+ +------+--------+---+ | New Bag | 10/27/19 | 4 mg | mL/hr | | | | 12 9:47 | | | | | | PM PDT | | | | +---------+ +------+--------+---+ | New Bag | 10/26/19 | 4 mg | mL/hr | | | | 12 8:45 | | | | | | PM PDT | | | | +---------+ +------+--------+---+ +---+---+ | | | +---+---+ + +---------+ +------+--------+---+ | ondansetron (aka ZOFRAN) | New Bag | 10/27/19 | 4 mg | mL/hr | | | injection 4 mg 4 mg, | | 12 9:44 | | | | | intravenous, EVERY 12 HOURS | | AM PDT | | | | | NEEDED, Starting Sat10/26/11 at | | | | | | | 1947, Until 10/28/11 at 1846, | | | | | | | nausea/vomiting | | | | | | + +---------+ +------+--------+---+ +---+---+ | | | +---+---+ + +---------+ +---------+--------+---+ | promethazine (aka PHENERGAN) | New Bag | 10/26/19 | 6.25 mg | mL/hr | | | injection 6.25 mg 6.25 mg, | | 12 2:45 | | | | | intravenous, EVERY 6 HOURS | | PM PDT | | | | | NEEDED, Starting Sat10/26/11 at | | | | | | | 1437, Until Sat10/26/11 at 1935, | | | | | | | nausea/vomiting | | | | | | + +---------+ +---------+--------+---+ + +---+ | | | + +---+ | promethazine (aka PHENERGAN) | | | injection 1 dose, Starting Fri | | | 10/26/11 at 1438, Until 10/26/11 | | | at 1445 | | + +---+ | | | + +---+ documented in this encounter
--- OUTSIDE RECORDS SUMMARY | ~2019-06-13 | XMS | Encounter Summary ---
Demographics + + + | Address | [address] | | | [place] [address] | + + + | Home Phone | | + + + | Preferred Language | Unknown | + + + | Marital Status | | + + + | Judaism Affiliation | CAT | + + + | Race | White | + + + | Ethnic Group | Not or | + + + Author + + + | Author | [facility] | + + + | Organization | [facility] | + + + | Address | Unknown | + + + | Phone | Unavailable | + + + Support + + + + + | Name | Relationship | Address | Phone | + + + + + | Jer Posey | ECON | [address] | | | | [place], [place] | | | | | [address] | | + + + + + Care Team Providers + +------+ + | Care Traffic Engineering Director Name | Role | Phone | + +------+ + | Mike Saucedo MD | PCP | | + +------+ + Encounter Details +--------+ + + + + | Date | Type | Department | Care Team | Description | +--------+ + + + + | 05/09/ | Documentati | Preoperative | Maria D Rodriguez, | | | 2010 | on | Medicine Clinic at | | | | | | [facility] | | | | | | Stay [address] [facility] | | | | | | [address] | | | | | | Mailcode: [id number] | | | | | | Harish Osman | | | | | | [address] [place], [place] | | | | | | [address] | | | | | | [phone] | | | +--------+ + + + [...]
--- OUTSIDE RECORDS SUMMARY | ~2019-06-13 | XMS | Encounter Summary ---
Demographics + + + | Address | [address] | | | [place] [address] | + + + | Home Phone | | + + + | Preferred Language | Unknown | + + + | Marital Status | | + + + | Roman Catholic Affiliation | 1041 | + + + | Race | Unknown | + + + | Ethnic Group | Unknown | + + + Author + + + | Author | [facility] | | | and [place] | + + + | Organization | [facility] | | | and [place] | + + + | Address | Unknown | + + + | Phone | Unavailable | + + + Support + + +---------+ + | Name | Relationship | Address | Phone | + + +---------+ + | Sade Beckwith | ECON | Unknown | | + + +---------+ + | [place]) | ECON | Unknown | | | Kalpesh | | | | + + +---------+ + Care Team Providers + +------+ + | Care Plastic And Reconstructive Surgeon Name | Role | Phone | + [...] Description | +--------+--------+ + + + | 02/15/ | Refill | [facility] [place] | Eulaliaenstein, | Medication Refill | | 2015 | | PULMONARY [address] | Jenna George MD | | | | | [place], | | | | | | [place] [address] | | | | | | [phone] | | | +--------+--------+ + + + [...] | 07/08/ | Office | Cardiology | Wicho Morrisonkira, | | | 2018 | Visit | | MD [address] | | | | | | [place] | | | | | | [address] | | | | | | | | +--------+---------+ + + + | 11/04/ | Office | Pulmonology | Sukhjinder, | | | 2019 | Visit | | Windy Aldrich, | | | | | | [address] | | | | | | [place], | | | | | | [place] [address] | | | | | | [phone] | | | | | | | | +--------+---------+ + + + documented as of this encounter Visit Diagnoses Not on filedocumented in this encounter"
--- OUTSIDE RECORDS SUMMARY | ~2019-06-13 | XMS | Encounter Summary ---
Demographics + + + | Address | [address] | | | [place] [address] | + + + | Home Phone [...] | | + + +---------+ + | Elmagracie Red) | ECON | Unknown | | | Kalpesh | | | | + + +---------+ + Care Team Providers + +------+ + | Care Universal Banker Name | Role | Phone | + [...] George MD | | | | | [place], | | | | | | [place] [address] | | | | | | [phone] | | | +--------+ + + + [...] [place] | | | | | | [address] | | | | | | | | +--------+---------+ + + + | 11/04/ | Office | Pulmonology | Sukhjinder, | | | 2019 | Visit | | Windy Aldrich, | | | | | | MD [address] | | | | | | [place], | | | | | | [place] [address] | | | | | | [phone] | | | | | | | [...]
--- OUTSIDE RECORDS SUMMARY | ~2019-06-13 | XMS | Encounter Summary ---
Demographics + + + | Address | [address] | | | [place] [address] | + + + | Home Phone | | + + + | Preferred Language | Unknown | + + + | Marital Status | | + + + | Zoroastrian Affiliation | 1041 | + + + [...] | | + + +---------+ + | [place]acie [address]) | ECON | Unknown | | | Kalpesh | | | | + + +---------+ + Care Team Providers + +------+ + | Care Balance Truing Inspector Name | Role | Phone | + [...] MD | surgeon) | | | | [place], | | | | | | [place] [address] | | | | | | [phone] | | | +--------+ + + + [...] | | | | | [place] | | | | | | [address] | | | | | | | | +--------+---------+ + + + | 11/04/ | Office | Pulmonology | Sukhjinder, | | | 2019 | Visit | | Windy Aldrich, | | | | | | MD [address] | | | | | | [place], | | | | | | [place] [address] | | | | | | [phone] | | | | | | | | +--------+---------+ + + + documented as of this encounter Visit Diagnoses Not on filedocumented in this encounter"
--- OUTSIDE RECORDS SUMMARY | ~2019-06-13 | XMS | Encounter Summary ---
Demographics + + + | Address | [address] | | | [place] [address] | + + + | Home Phone [...] | | + + +---------+ + | Justingracie Red) | ECON | Unknown | | | Kalpesh | | | | + + +---------+ + Care Team Providers + +------+ + | Care Windows Laptop Technician Name | Role | Phone | [...] | +--------+ + + + + | 04/18/ | Telephone | [facility] [place] | Offenstein, | Results | | 2014 | | PULMONARY [address] | Jenna George MD | | | | | [place], | | | | | | [place] [address] | | | | | | [phone] | | | +--------+ + + + [...] [place] | | | | | | [address] | | | | | | | | +--------+---------+ + + + | 11/04/ | Office | Pulmonology | Sukhjinder, | | | 2019 | Visit | | Windy Aldrich, | | | | | | MD [address] | | | | | | [place], | | | | | | [place] [address] | | | | | | [phone] | | | | | | | | +--------+---------+ + + + + + +--------+ + + | Name | Type | Priori | Associated Diagnoses | Order Schedule | | | | ty | | | + + +--------+ + + | Oxygen, nocturnal | Respiratory | Routin | Obstructive | Expected: 04/18/2015 | | | Care | e | chronic bronchitis | (Approximate), | | | | | (HCC) | Expires: 04/18/2016 | + + +--------+ + + documented as of this encounter Visit Diagnoses + + | Diagnosis | + + | Obstructive chronic bronchitis (HCC) - Primary Obstructive chronic bronchitis without | | exacerbation | + + documented in this encounter"
--- OUTSIDE RECORDS SUMMARY | ~2019-06-13 | XMS | Encounter Summary ---
Demographics + + + | Address | [address] | | | [place] [address] | + + + | Home Phone [...] | | + + +---------+ + | Oqu[place]gracie Red) | ECON | Unknown | | | Kalpesh | | | | + + +---------+ + Care Team Providers + +------+ + | Care Bone Cooking Operator Name | Role | Phone | + +------+ + PCP | Unavailable | + +------+ + Encounter Details +--------+ + + + + | Date | Type | Department | Care Team | Description | +--------+ + + + + | 07/12/ | Hospital | [facility] | Jane Easley | Other Specified | | 2008 | Encounter | CONVERSION DEP [address] | MD [place] [address] | Pre-Operative | | | | [address] | Blvd [place], [place] | Examination | | | | [place], [place] | [address] | | | | | [address] | [phone] | | | | | [phone] | | | +--------+ + + + [...] [place] | | | | | | [address] | | | | | | | | +--------+---------+ + + + | 11/04/ | Office | Pulmonology | Sukhijnder, | | | 2019 | Visit | | Windy Aldrich, | | | | | | [address] | | | | | | [place], | | | | | | [place] [address] | | | | | | [phone] | | | | | | | | +--------+---------+ + + + documented as of this encounter Visit Diagnoses + + | Diagnosis | + + | Other specified pre-operative examination | + + documented in this encounter"
--- OUTSIDE RECORDS SUMMARY | ~2019-06-13 | XMS | Encounter Summary ---
Demographics + + + | Address | [address] | | | [place] [address] | + + + | Home Phone | | + + + | Preferred Language | Unknown | + + + | Marital Status | | + + + | Restoration Affiliation | 1041 | + + + | Race | Unknown | + + + | Ethnic Group | Unknown | + + + Author + + + | Author | [facility] | | | and [place] | + + + | Organization | [facility] | | | [...] Team Providers + +------+ + | Care Snack Stewardess Name | Role | Phone | + [...] + + | 11/10/ | Office | [facility] | Offenstein, | Obstructive chronic | | 2014 | Visit | PULMONARY [address] | Jenna George MD | bronchitis (HCC) | | | | [place], | | (Primary Dx); | | | | [place] [address] | | Bronchiectasis | | | | [phone] | | ([facility]); | | | | | | Gastroesophageal [...] not exercising regularly. She does her usual bundler seasonal greenery and w orking in the yard. 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 Exposure to asbestos: no Exposure [...] 1 Bottl e 11 Misc. Devices (ACAPELLA) [facility] Dx: 494.0 NIGEL: 99 months Use as [...] made to ensure accuracy; however, inadvertent computerized sprinkling truck driver errors may be pre sent. documented in t his encounter Plan of Treatment +--------+---------+ + + + | Date | Type | Specialty | Care Team | Description | +--------+---------+ + + + | 07/08/ | Office | Cardiology | Nannette Morrison, | | | 2018 | Visit | | MD [address] | | | | | | [place] | | | | | | [id number] | | | | | | | | +--------+---------+ + + + | 11/04/ | Office | Pulmonology | Sukhjinder, | | | 2019 | Visit | | Windy Aldrich | | | | | | MD [address] | | | | | | [place] | | | | | | [place] [address] | | | | | | [phone] | | | | | | | [...] + + + + + + | HARVEST SUPERVISOR | <0.2Comment: Negative | <1.0 AI | [...] [facility] | | | IGG | Performed: [facility], [address] | | | | | | [address], [place] | | | | | | [address] | | | | + + + + + + + + | Specimen | + + | Blood specimen | | (specimen) | + + + + + + + | Performing | Address | City/State/Zipcode | Phone Number | | Organization | | | | + + + + + | [facility] | [address] | [place] [address] | [phone] | + + + + + Cyclic [...] [place] | | | | | | [address] | | | | + + + + + + + + | Specimen | + + | Blood specimen | | (specimen) | + + + + + + + | Performing | Address | City/State/Zipcode | Phone Number | | Organization | | | | + + + + + | [facility] | [address] | [place] [address] | [phone] | + + + + + Aldolase [...] [place] | | | | | | [address] | | | | + + + [...] [address] | [place] [address] | [phone] | + + + + + CK [...] ST. | [address] | [place] | [phone] | | [facility] | | [address] | | | - LABORATORY | | [...]
--- OUTSIDE RECORDS SUMMARY | ~2019-06-13 | XMS | Encounter Summary ---
Demographics + + + | Address | [address] | | | [place] [address] | + + + | Home Phone [...] Team Providers + +------+ + | Care Java Application Engineer Name | Role | Phone | + +------+ + | Mike Saucedo MD | PCP | | + +------+ + Encounter Details +--------+ + + + + | Date | Type | Department | Care Team | Description | +--------+ + + + + | 11/07/ | Hospital | [facility] | Conversion | Bronchiectasis | | 2018 | Encounter | CENTER CARDIAC | Transaction, | without complication | | | | PULMONARY REHAB | Provider Unknown | ([facility]); Mild airflow | | | | [address] | | obstruction on | | | | [place], [place] | (Fax) | pulmonary function | | | | [address] | | test | | | | [phone] | | | +--------+ + + + [...] [place] | | | | | | [address] | | | | | | | | +--------+---------+ + + + | 11/04/ | Office | Pulmonology | Sukhjinder, | | | 2019 | Visit | | Windy Aldrich, | | | | | | [address] | | | | | | [place], | | | | | | [place] [address] | | | | | | [phone] | | | | | | | | +--------+---------+ + + + documented as of this encounter Visit Diagnoses + + | Diagnosis | + + | Bronchiectasis without complication (HCC) Bronchiectasis without acute exacerbation | + + | Mild airflow obstruction on pulmonary function test | + + documented in this encounter"
--- OUTSIDE RECORDS SUMMARY | ~2019-06-13 | XMS | Encounter Summary ---
Demographics + + + | Address | [address] | | | [place] [address] | + + + | Home Phone [...] [place], [place] | | | | | [address] | | + + + + + Care Team Providers + +------+ + | Care Flag Signaler Name | Role | Phone | + [...] LAPAROSCOPIC HIATAL | | 2011 | | [facility] | MD [address] | HERNIA REPAIR; | | | | Admitting Desk | [address] | PETER | | | | Located on the | [place], [place] | FUNDOPLICATION | | | | floor [address] | [address] | | | | | [address] | [phone] | | | | | [place], [place] | | | | | | [address] | | | +--------+---------+ + + + [...] 'after hours' URGENT problems please call the [facility] brake operator at and ask for the "Blue [...] the resident s note. Doug March M.D. [facility] ([facility]) Professor and Vice-Control Systems Developer of Surgery The [facility] Chair for Pancreatic Disease Research Pancreatic/ HepatoBiliary and Foregut Working Groups Mail Code [id number] [address] [place], [place]. [address] email: [email or web address] Andie Dick - 10/28/2011 6:46 AM PDT [...] Dispo - home today ANNA Morales MBBS [facility] [address]A [address] [id number] [facility] [address] Andie Dick - 10/27/2011 6:16 AM PDT [...] 30ml/hr Heme/electrolytes - all within normal range [facility] - encourage ambulation . ANNA Morales MBBS [facility] 14C [address] [facility] [id number] Bibi Hadley MD - 10/26/2011 6:15 PM [...] Mckenna MD - 10/27/2011 9:42 PM PDT [id number] | | [id number] MICHELLE MOORE | | [phone] [id number] Date: 10/26/2011 Attending Surgeon: Doug Castellano | | Rose Marie March Manager Voice(s): Jose Mckenna MD Preoperative | | Diagnosis(es):Paraesophageal [...] reduced. Lily created a retroesophageal window. A [place] drain was placed | | aroundthe esophagus. [...] Tycron sutures. At this | | point, c40-Cbkzrn followed by a 56-Scottish Olvera dilator was passed down theesophagus. | | Over this, a floppy Peter fundoplication was constructed with3 sutures of 0 Tycron, | | each incorporated in the body of the muscular wallof the esophagus. The Peter was | | approximately 2.5 cm in length and on theesophagus above the GE junction. The [place] | | drain was removed. TheMaloney dilator [...] | operation. MD Doug Clemente M.D.Professor and Vice-Control Systems Developer of | | SurgeryThe Zeb Hopkins Chair for Pancreatic Disease Research[facility] | | [place] ([facility])Division of Gastrointestinal and General Surgery JF / [id number] / | | [id number] / [id number] / T: 10/27/2011 | |left mid abdomen [...] | |then created a retroesophageal window. A [place] drain was placed around | |the esophagus. [...] Tycron sutures. At this point, a | |44-Scottish followed by a 56-Scottish Olvera dilator was passed down the | |esophagus. Over this, a floppy Peter fundoplication was constructed with | |3 sutures of 0 Tycron, each incorporated in the body of the muscular wall | |of the esophagus. The Peter was approximately 2.5 cm in length and on the | |esophagus above the GE junction. The [place] drain was removed. The | |Olvera dilator [...] | |Doug March M.D. | |Professor and Vice-Control Systems Developer of Surgery | |The Zeb Hopkins Chair for Pancreatic Disease Research | |[facility] ([facility]) | |Division of Gastrointestinal and General Surgery | | | | | |JF / HS | |[id number] / [id number] / [id number] / | | | | | | [...] | | | | | NIKKIE ORTEGA (1614) on | | | | | | 10/28/2011 12:35:04 PM | | | | + + + + + + + + | Specimen | + + | | + + + + + | Narrative | Performed At | + + + | Please click | [facility] | | on view image for the detailed interpretation from [employer] results. | CARDIOLOGY | + + + + + + + + | Performing | Address | City/State/Zipcode | Phone Number | | Organization | | | | + + + + + | [facility] | [address] | [place], [place] | | | CARDIOLOGY | [address] | [address] | | + + + + + [...] DEPARTMENT OF | [address] | [place] [address] | | | PATHOLOGY | [address] [...] | + + + + + | [facility] DEPARTMENT OF | [address] | [place] [address] | | | PATHOLOGY | [address] [...] | + + + + + | [facility] | [address] | [place] [address] | | | PATHOLOGY | [address] [...] | | | | | | Nessa Tejead M.D. I have | | | | [...] view image for the detailed interpretation from [employer] results. | CARDIOLOGY | + + + + + + + + | Performing | Address | City/State/Zipcode | Phone Number | | Organization | | | | + + + + + | [facility] | [address] | [place], [place] | | | CARDIOLOGY | [address] | [address] | | + + + + + [...] | + + + + + | [facility] | [address] | [place] [address] | | | PATHOLOGY | [address] [...]
--- OUTSIDE RECORDS SUMMARY | ~2019-06-13 | XMS | Encounter Summary ---
Demographics + + + | Address | [address] | | | [place] [address] | + + + | Home Phone | | + + + | Preferred Language | Unknown | + + + | Marital Status | | + + + | Gnosticist Affiliation | CAT | + + + [...] [place], [place] | | | | | [address] | | + + + + + Care Team Providers + +------+ + | Care Backbreaker Name | Role | Phone | + +------+ + PCP | Unavailable | + +------+ + Encounter Details +--------+ + + + + | Date | Type | Department | Care Team | Description | +--------+ + + + + | 01/16/ | Abstract | Dig[facility]ive Health | Doug March, | | | 2010 | | [place] [facility] [address] | [address] | | | | | [address] | [address] | | | | | Mailcode: Center | [place], [place] | | | | | [facility] Health and | [address] | | | | | [facility] 2 | [phone] | | | | | [place], [place] | | | | | | [address] | | | | | | [phone] | | | +--------+ + + + [...]
--- OUTSIDE RECORDS SUMMARY | ~2019-06-13 | XMS | Encounter Summary ---
Demographics + + + | Address | [address] | | | [place] [address] | + + + | Home Phone | | + + + | Preferred Language | Unknown | + + + | Marital Status | | + + + | Jew Affiliation | CAT | + + + [...] [place], [place] | | | | | [address] | | + + + + + Care Team Providers + +------+ + | Care Middleware Solutions Architect Name | Role | Phone | + +------+ + PCP | Unavailable | + +------+ + Encounter Details +--------+ + + + + | Date | Type | Department | Care Team | Description | +--------+ + + + + | 01/02/ | Abstract | Digestive Health | Radha, | | | 2010 | | [facility] [address] | MD Issa [address] | | | | | [address] | [address] | | | | | Mailcode: Center | [place], [place] | | | | | [facility] Health and | [address] | | | | | [facility], [facility] 2 | [phone] | | | | | [place], [place] | | | | | | [address] | | | | | | [phone] | | | +--------+ + + + [...]
--- OUTSIDE RECORDS SUMMARY | ~2019-06-13 | XMS | Encounter Summary ---
Demographics + + + | Address | [address] | | | [place] [address] | + + + | Home Phone | | + + + | Preferred Language | Unknown | + + + | Marital Status | | + + + | Evangelical Affiliation | CAT | + + + | Race | White | + + + | Ethnic Group | Not or | + + + Author + + + | Author | [facility] | + + + | Organization | [facility] | + + + | Address | Unknown | + + + | Phone | Unavailable | + + + Support + + + + + | Name | Relationship | Address | Phone | + + + + + | Jer Posey | ECON | [address] | | | | [place], [place] | | | | | [address] | | + + + + + Care Team Providers + +------+ + | Care Masonry Contractor Name | Role | Phone | + [...] | | | 2011 | Event | [facility] | [address] | | | | | Admitting Desk | [place], | | | | | Located on the | [place] [address] | | | | | floor [address] | [phone] | | | | | [address] | | | | | | [place], [place] | Amari G[place]am, | | | | | [address] | AUDIT ASSOCIATE [address] | | | | | | [address] | | | | | | [place], [place] | | | | | | [address] | | | | | | [phone] | | | | | | | [...] Discontinued After | | Periph | | AUDIT ASSOCIATE | Discharge | | eral | | [...]
--- OUTSIDE RECORDS SUMMARY | ~2019-06-13 | XMS | Encounter Summary ---
Demographics + + + | Address | [address] | | | [place] [address] | + + + | Home Phone | | + + + | Preferred Language | Unknown | + + + | Marital Status | | + + + | Nondenominational Affiliation | 1041 | + + + | Race | Unknown | + + + | Ethnic Group | Unknown | + + + Author + + + | Author | [facility] | | | and [place] | + + + | Organization | [facility] | | [...] Team Providers + +------+ + | Care Freight Flagman Name | Role | Phone | + +------+ + | Mike Saucedo MD | PCP | | + +------+ + Encounter Details +--------+ + + + + | Date | Type | Department | Care Team | Description | +--------+ + + + + | 11/28/ | Hospital | [facility] | Conversion | Pain | | 2017 | Encounter | CONVERSION DEP [address] | Transaction, | | | | | [address] | Provider Unknown | | | | | [facility] [place] | [phone] | | | | | [address] | | | | | | [phone] | | | +--------+ + + + [...] [place] | | | | | | [address] | | | | | | | | +--------+---------+ + + + | 11/04/ | Office | Pulmonology | Sukhjinder, | | | 2019 | Visit | | Windy Aldrich, | | | | | | MD [address] | | | | | | [place], | | | | | | [place] [address] | | | | | | [phone] | | | | | | | [...]
--- OUTSIDE RECORDS SUMMARY | ~2019-06-13 | XMS | Encounter Summary ---
Demographics + + + | Address | [address] | | | [place] [address] | + + + | Home Phone [...] | | + + +---------+ + | Quintergracie Red) | ECON | Unknown | | | [place] | | | | + + +---------+ + Care Team Providers + +------+ + | Care Assembler Plastic Boat Name | Role | Phone | + +------+ + | Mike Saucedo MD | PCP | | + +------+ + Encounter Details +--------+ + + + + | Date | Type | Department | Care Team | Description | +--------+ + + + + | 05/17/ | Hospital | [facility] | Offenstein, | Chronic cough; GERD | | 2014 | Encounter | MED CTR XRAY [address] | MD Mookie Alicia, | (gastroesophageal | | | | [place] | [facility] | reflux disease) | | | | [place] [address] | | | | | | [phone] | | | +--------+ + + + [...] [place] | | | | | | [id number] | | | | | | | | +--------+---------+ + + + | 11/04/ | Office | Pulmonology | Sukhjinder, | | | 2019 | Visit | | Windy Aldrich, | | | | | | MD [address] | | | | | | [place] | | | | | | [place] [address] | | | | | | [phone] | | | | | | | [...] + | MISCELLANEOUS LAB | | | [phone] | + +---------+ + + | MISCELANIOUS LAB | | | [phone] | + +---------+ + + documented in this encounter Visit Diagnoses + + | Diagnosis | + + | Chronic cough Cough | + + | GERD (gastroesophageal reflux disease) Esophageal reflux | + + documented in this encounter"
--- OUTSIDE RECORDS SUMMARY | ~2019-06-13 | XMS | Clinical Summary ---
Demographics + + + | Address | [address] | | | [place] [address] | + + + | Home Phone | | + + + | Preferred Language | Unknown | + + + | Marital Status | | + + + | Gnosticist Affiliation | 1041 | + + + | Race | Unknown | + + + | Ethnic Group | Unknown | + + + Author + + + | Author | [facility] (Historical as of | | | 03-07-19) | + + + | Organization | [facility] (Historical as of | | | 03-07-19) | + + + | Address | Unknown | + + + | Phone | Unavailable | + + + Support + + +---------+ + | Name | Relationship | Address | Phone | + + +---------+ + | TangSade | ECON | Unknown | | + + +---------+ + | Yuri Martinez | ECON | Unknown | | | ([place]) | | | | + + +---------+ + | Alexandra Galarza | ECON | Unknown | | + + +---------+ + Care Team Providers + +------+ + | Care Juvenile Counselor Name | Role | Phone | [...] 336 mL | 5 | 10/1 | | Activ | | (PROVENTIL) (2.5 | nebulization every 6 | | | 0/20 | | e | | MG/3ML) 0.083% | (six) hours as | | | 18 | | | | nebulizer | needed for Wheezing | | | | | | | solutionIndications: | (nebulize twice a | | | | | | | Bronchiectasis | day, and as needed). | | | | | | | without complication | | | | | | | | ([facility]), Mild airflow | | | | | [...] | | | | | | | ([facility]), Chronic | | | | | | | | obstructive | | | | | | | | pulmonary disease, | | | | | | | | unspecified COPD | | | | | | | | type ([facility]) | | | | | | | + + + +---------+------+------+-------+ | cholestyramine | Take 4 g by mouth 2 | | | | | Activ | | light (PREVALITE) 4 | (two) times daily. | | | | | e | | g packet | Mix powder in 2-3 | | | | | | | | ounces of fluid or | | | | | | | | applesauce. | | | | | | + + + +---------+------+------+-------+ | metoprolol | Take 1 tablet by | 180 | 3 | 07/1 | 01/19 | Activ | | (LOPRESSOR) 50 MG | mouth 2 (two) times | tablet | | 7/20 | 6/20 | e | | tablet | daily. | | | 19 | 20 | | + + + +---------+------+------+-------+ | warfarin | Take 1 tablet by | 90 | 3 | 07/1 | /1 | Activ | | (COUMADIN) 5 MG | mouth daily. 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 | + + + + + | Basal cell carcinoma of cheek | 02/06/2015 | + + + + + | Last Assessment & Plan: Basal Cell CA, right cheek, 2012. | + + + + + | Gastroparesis | 02/06/2015 | + + + + + | Last Assessment & Plan: Hx Hiatal hernia, [place] | | fundoplication, 2011. | + + + + + | Bronchiectasis ([facility]) | 02/06/2015 | + + + + + | Last Assessment & Plan: Bronchiectasis, followed by | | [facility] [employer] [facility] HelperDr Maria. | + + + + + [...] she and Yuri sold their home in [place], | | she is busy doing yardwork and packing, most likely will be | | spending the winter in the [place] area. Tolerating | | medications. No changes [...] | 17/0.8, glu: 117 | + + Immunizations + + + + | Name [...] + + | Father | | | [place] | | | | (Age | | [...] + | Blood Pressure | 120/58 | 02/04/2019 9:46 AM PDT | + + + + | Pulse | 58 | 02/04/2019 9:46 AM PDT | + + + + | Temperature | 36.2 C (97.1 F) | 11/17/2018 11:22 AM PDT | + + + + | Respiratory Rate | 16 | 05/20/2018 10:29 AM PDT | + + + + | Oxygen Saturation | 99% | 02/04/2019 9:46 AM PDT | + + + + | Inhaled Oxygen | - | - | | Concentration | | | + + + + | Weight | 61.6 kg (135 lb 12.8 | 02/04/2019 9:46 AM PDT | | | oz) | | + + + + | Height | 165.1 cm (5' 5") | 02/04/2019 9:46 AM PDT | + + + + | Body Mass Index | 22.6 | 02/04/2019 9:46 AM PDT | + + + + Plan of Treatment +--------+---------+ + + + | Date | Type | Specialty | Care Team | Description | +--------+---------+ + + + | 07/08/ | Office | | Nannette Morrison, | | | 2018 | Visit | | MD Angela Avalos | | | | | | Dr [address], | | | | | | [place] [address] | | | | | | [phone] | | | | | | | [...] + + | Vaccine: Influenza | | 04/21/2018, 2018, | | | (#1) | 9 | 04/16/2017, Additional history | | | | | [...] +------+-------+ + | MEDICARE | MEDICA | [id number] | | | [address] | | | RE | | | | [place], [place] [address] | | | IP-OP | | | | | + +--------+ +------+-------+ + | COMMERCIAL OTHER | COMMER | [id number] | | | | | | CIAL [...] Self | [birth year] | Home: | [address] | | | al/Fam | | 1940 | [phone] [place] | | | zayda | | | [address] | [phone] | + +--------+ +--------+ + +
--- OUTSIDE RECORDS SUMMARY | ~2019-06-13 | XMS | Encounter Summary ---
Demographics + + + | Address | [address] | | | [place] [address] | + + + | Home Phone [...] | | + + +---------+ + | Danevanggracie Red) | ECON | Unknown | | | Kalpesh | | | | + + +---------+ + Care Team Providers + +------+ + | Care Service Tech Name | Role | Phone | + +------+ + | Mike Saucedo MD | PCP | | + +------+ + Encounter Details +--------+ + + + + | Date | Type | Department | Care Team | Description | +--------+ + + + + | 05/05/ | Abstract | [facility] | Eul[place]enstein, | | | 2013 | | PULMONARY [address] | Jenna George MD | | | | | [place], | | | | | | [place] [address] | | | | | | [phone] | | | +--------+ + + + [...] [place] | | | | | | [address] | | | | | | | | +--------+---------+ + + + | 11/04/ | Office | Pulmonology | Sukhjinder, | | | 2019 | Visit | | Windy Aldrich, | | | | | | [address] | | | | | | [place], | | | | | | [place] [address] | | | | | | [phone] | | | | | | | | +--------+---------+ + + + documented as of this encounter Visit Diagnoses Not on filedocumented in this encounter"
--- OUTSIDE RECORDS SUMMARY | ~2019-06-13 | XMS | Encounter Summary ---
Demographics + + + | Address | [address] | | | [place] [address] | + + + | Home Phone | | + + + | Preferred Language | Unknown | + + + | Marital Status | | + + + | Sikh Affiliation | 1041 | + + + | Race | Unknown | + + + | Ethnic Group | Unknown | + + + Author + + + | Author | [facility] | | | and [place] | + + + | Organization | [facility] | | | and [place] | + + + | Address | Unknown | + + + | Phone | Unavailable | + + + Support + + +---------+ + | Name | Relationship | Address | Phone | + + +---------+ + | Sade Beckwith | ECON | Unknown | | + + +---------+ + | Sidneygracie Red) | ECON | Unknown | | | Kalpesh | | | | + + +---------+ + Care Team Providers + +------+ + | Care Career Coordinator Name | Role | Phone | + [...] Description | +--------+--------+ + + + | 06/18/ | Refill | [facility] [place] | Eulaliaenstein, | Medication Refill | | 2014 | | PULMONARY [address] | Jenna George MD | | | | | [place], | | | | | | [place] [address] | | | | | | [phone] | | | +--------+--------+ + + + [...] [place] | | | | | | [address] | | | | | | | | +--------+---------+ + + + | 11/04/ | Office | Pulmonology | Sukhjinder, | | | 2019 | Visit | | Windy Aldrich, | | | | | | MD [address] | | | | | | [place], | | | | | | [place] [address] | | | | | | [phone] | | | | | | | | +--------+---------+ + + + documented as of this encounter Visit Diagnoses Not on filedocumented in this encounter"
--- OUTSIDE RECORDS SUMMARY | ~2019-06-13 | XMS | Encounter Summary ---
Demographics + + + | Address | [address] | | | [place] [address] | + + + | Home Phone | | + + + | Preferred Language | Unknown | + + + | Marital Status | | + + + | Moravian Affiliation | 1041 | + + + | Race | Unknown | + + + | Ethnic Group | Unknown | + + + Author + + + | Author | [facility] | | | and [place] | + + + | Organization | [facility] | | | and [place] | + + + | Address | Unknown | + + + | Phone | Unavailable | + + + Support + + +---------+ + | Name | Relationship | Address | Phone | + + +---------+ + | Sade Beckwith | ECON | Unknown | | + + +---------+ + | Corninggracie Red) | ECON | Unknown | | | Kalpesh | | | | + + +---------+ + Care Team Providers + +------+ + | Care Check Out Cashier Name | Role | Phone | + +------+ + | Mike Saucedo MD | PCP | | + +------+ + Encounter Details +--------+ + + + + | Date | Type | Department | Care Team | Description | +--------+ + + + + | 05/07/ | Hospital | [facility] | Off[place], | Cough | | 2014 | Encounter | [facility] | Jenna George MD | | | | | [address] | | | | | | [place] | | | | | | [address] | | | | | | [phone] | | | +--------+ + + + [...] [place] | | | | | | [address] | | | | | | | | +--------+---------+ + + + | 11/04/ | Office | Pulmonology | Sukhjinder, | | | 2019 | Visit | | Windy Aldrich, | | | | | | MD [address] | | | | | | [place] | | | | | | [place] [address] | | | | | | [phone] | | | | | | | [...] mL/min/1.73m2 | [facility] | | | [facility] | | | MEDICAL | | | [...] + | [facility] | [address] | [place], [place] | [phone] | | [facility] | | [address] | | | - LABORATORY | | | | + + + + + | [facility] | [address] | [place], [place] | | | [facility] | | [address] | | | - LABORATORY | | [...] [address] | [place] | [phone] | | [facility] | | [address] | | | - LABORATORY | | | | + + + + + | [facility] | [address] | [place] | | | [facility] | | [address] | | | - LABORATORY | | | | + + + + + documented in this encounter Visit Diagnoses + + | Diagnosis | + + | Cough | + + documented in this encounter"
--- OUTSIDE RECORDS SUMMARY | ~2019-06-13 | XMS | Encounter Summary ---
Demographics + + + | Address | [address] | | | [place] [address] | + + + | Home Phone | | + + + | Preferred Language | Unknown | + + + | Marital Status | | + + + | Buddhist Affiliation | 1041 | + + + | Race | Unknown | + + + | Ethnic Group | Unknown | + + + Author + + + | Author | [facility] | | | and [place] | + + + | Organization | [facility] | | | [...] Team Providers + +------+ + | Care Telecommunications Linesworker Name | Role | Phone | + [...] Description | +--------+---------+ + + + | 07/13/ | Surgery | [facility] | Abdi Wallace | HEMIARTHROPLASTY HIP | | 2018 | | MED CTR OR INTRA OP | MD Casandra [address] | | | | | [address] | [place] | | | | | [place] | [address] | | | | | [address] | | | | | | [phone] | | | +--------+---------+ + + + [...] Bruce MD - 07/17/2018 12:52 PM PST [facility] DISCHARGE SUMMARY Pt. Name/Age/: Shireen Martinez 78 [...] acetaminophen) . aka: ULTRAM Unchanged Medications Details [facility] Dx: 494.0 NIGEL: [...] appointment in 7-10 days Contact information: [address] [place] [id number] Abdi Wallace MD. Specialty: Orthopedic Surgery Contact information: [address] [facility] [address] RESULTS: Results for SHIREEN MARTINEZ ( ) [...] uIU/mL 1.71 Shireen Martinez ECHO Complete Order# [id number] Reading physician: Junito Ramirez MD Ordering physician: [...] UA Latest Ref Range: Clear Clear Specific [place] Latest Ref Range: 1.001 - 1.030 1.018 [...] signed by: Mahesh Bruce MD, 07/17/2018 12:52 [facility] Portions of this chart may have been created with [employer] voice recognition software. Occasi onal wrong-word or [...] mg of acetaminophen (Tylenol) per day. Hydrocodone-acetaminophen ([place] ) and Oxycodone-acetaminophen (Percocet) have 325 mg [...] red in back of calf PE or AK: sudden chest pain or trouble breathing Stroke: [...] help t he stool stay soft and idjl-dn-owfo. Remember to drink plenty of fluids and fiber-containin g foods. If you do not have a bowel movement within two days of returning home, add milk of magnesi a 30 mL once each night and/or Miralax one capful (17 grams) dissolved in half a cup of wate r once daily for 3 days. These are available eqig-cva-jkpbwje at any drugstore. If you are still [...] 13:00 This note was dictated using the [employer] recognition system. Minor errors in grammar may [...] 141/63 Pulse: 78 88 81 88 Resp: Temp: 37.2 C (99 F) (!) 38.4 [...] E' Septal Velocity 8 cm/s MV Deceleration [place] 534.07 cm/s2 MV Deceleration Time 255.28 msec [...] 19:12 This note was dictated using the [employer] voice recognition system. Minor errors in grammar may have occurred eo, Mahesh Jose MD - 07/16/2018 5:[address] [facility] PMG Hospitalist Progress Note Shireen Martinez is [...] scheduled with her PCP to see a swing ride operator in the [facility] in December and advised her th at this could be moved forward such that in 6-12 weeks she could be assessed to determine wh ether stress testing, etc. would be appropriate. The interim I am going to recommend that we use of metoprolol in lieu of the diltiazem and she was given 25 mg 3 times daily which christina jose is currently tolerating. This evening we'll convert to 50 mg twice daily. She will be pl aced on low-dose aspirin. We discussed the options of Coumadin versus NOAC's. The patient's evnfd3mlsr score is 3-4 dependent upon whether or [...] as outlined above. Mahesh Bruce 07/16/2018 17:12 [facility] Portions of this chart may have been created with [employer] voice recognition software. Occasi onal wrong-word or sound-alike substitutions may have occurred due to the inherent israel itations of voice recognition software. Please read the chart carefully and recognize, using context, where these substitutions have occurred Abdi Rodriguez MD - 07/15/2018 11:22 AM PST Shireen Martinez SUBJECTIVE: Dr. Mahesh Bruce's note and help appreciated. OBJECTIVE: Vitals with Comments 07/15/2018 07/15/2018 07/15/2018 07/15/2018 SYSTOLIC 118 111 - - DIASTOLIC 59 [...] t from the original. [facility] PMG Hospitalist Progress Note Shireen Martinez is [...] as outlined above. Mahesh Bruce 07/15/2018 10:26 [facility] Portions of this chart may have been created with [employer] voice recognition software. Occasi onal wrong-word or sound-alike substitutions may have occurred due to the inherent israel itations of voice recognition software. Please read the chart carefully and recognize, using context, where these substitutions have occurred Helen Lao MD - 11:09 AM PST [facility] HOSPITALIST PROGRESS NOTE Patient: Shireen Martinez : 1940: Age: 78 y.o. MedRec: [id number] Admission date: 07/12/2018 Hospital day # : [...] Stable. Has outpatient GI follow up at [facility]. #Acute blood loss anemia Likely 2/2 surgery. [...] rate 1L/min Helen Alves MD 07/14/2018 11:09 [facility] Matti Mcfadden PA -C - 07/14/2018 [...] Pulse: 75 83 80 80 Resp: 16 Temp: 36.1 C (96.9 F) 36.6 [...] 10:53 This note was dictated using the [employer] voice recognition system. Minor errors in grammar may have occurred Isi Valentine RRT - 07/14/2018 12:45 AM PSTPatient sleeps quietly, no distress apparent. Cannula in her nose, O2 at 1 lpm, Saturations at 95% HR 77. Helen Lao MD - 07/13/2018 5:52 PM PSTFormattin g of this note might be different from the original. [facility] [place] HOSPITALIST PROGRESS NOTE Patient: Shireen Martinez : 1940: Age: 78 y.o. MedRec: [id number] Admission date: 07/12/2018 Hospital day # : [...] Stable. Has outpatient GI follow up at [facility]. FEN: gen Ppx: per ortho Disposition: pending [...] pH, Urine 5.0 5.0 - 8.0 Specific [place] 1.018 1.001 - 1.030 Protein, Urine Negative [...] rate 1L/min Helen Alves MD 07/13/2018 17:52 [facility] documented in this enco unter Plan of Treatment +--------+---------+ + + + | Date | Type | Specialty | Care Team | Description | +--------+---------+ + + + | 07/08/ | Office | Cardiology | Nannette Morrison, | | | 2018 | Visit | | MD Angela HARDEN | | | | | | [place] | | | | | | [id number] | | | | | | | | +--------+---------+ + + + | 11/04/ | Office | Pulmonology | Sukhjinder, | | | 2019 | Visit | | Windy Aldrich, | | | | | | [address] | | | | | | [place], | | | | | | [place] [address] | | | | | | [phone] | | | | | | | [...] | | Referral | | | encounter (HCC) | | + + +--------+ + [...] [facility] | | | | | | [facility] [...] | | | | | g/dL | [facility] | | | | | [...] + | [facility] | [address] | [place] | [phone] | | [facility] | | [address] | | | - LABORATORY | | [...] mL/min/1.73m2 | [facility] | | | TURKISH | RATE,ESTIMATED | | MEDICAL | | | | mL/min/1.87n8Fpnv than | | CENTER - | | [...] [address] | [place] | [phone] | | [facility] | | [address] | | | - LABORATORY | | [...] | | | | | | n Hopkins | | | | | + + [...] | + + + + + | [facility] | [address] | [place] | [phone] | | [facility] | | [address] | | | - LABORATORY | | [...] | | | Lavender | | | [facility] | | | Top Tube | | [...] [address] | [place] | [phone] | | [facility] | | [address] | | | - LABORATORY | | [...] | third generation TSH | uIU/mL | [facility] | | | | test. | [...] + | [facility] | [address] | [place] | [phone] | | [facility] | | [address] | | | - LABORATORY | | | | + + + + + Troponin I (07/16/2018 4:11 AM PST) + + + + + + | Component | Value | Ref Range | Performed | Pathologist | | | | | At | Signature | + + + + + + | Troponin I | 0.22 (H)Comment: | <0.06 ng/mL | [facility] | | | | Reference | | [...] | | | | | | [employer] | | | | | [...] [address] | [place] | [phone] | | [facility] | | [address] | | | - LABORATORY | | [...] | | | | | | [employer] | | | | | [...] [address] | [place] | [phone] | | [facility] | | [address] | | | - LABORATORY | | [...] | | | | | | [employer] | | | | | [...] ST. | [address] | [place] | [phone] | | [facility] | | [address] | | | - LABORATORY | | [...] | | | | | | [employer] | | | | | [...] | [facility] | [address] | [place] | [phone] | | [facility] | | [address] | | | - LABORATORY | | | | + + + + + ECG 12 lead (07/15/2018 9:18 AM PST) + + + + + + | Component | Value | Ref Range | Performed | Pathologist | | | | | At | Signature | + + + + + + | VENTRICULAR | 132 | BPM | [facility] | | | RATE EKG | | | | | + + + + + + | QRS | 70 | ms | [facility] | | | DURATION | | [...] | | | | AMANDA CHACON MD ([id number]) | | | | | | on [...] + | [facility] | [address] | [place] | [phone] | | [facility] | | [address] | | | - LABORATORY | | [...] (H) | 4.0 - 11.0 K/uL | [facility] | | | | | | [facility] [...] [address] | [place] | [phone] | | [facility] | | [address] | | | - LABORATORY | | [...] [facility] | | | | | | . [facility] | | | | [...] | Low IPF are consistent | | [facility] | | | Fraction | with a [...] | | nRBC | | K/uL | [facility] | | | | [...] [address] | [place] | [phone] | | [facility] | | [address] | | | - LABORATORY | | | | + + + + + Phosphorus (07/14/2018 6:26 AM PST) + +-------+ + + + | Component | Value | Ref Range | Performed | Pathologist | | | | | At | Signature | + +-------+ + + + | Phosphorus | 3.0 | 2.5 - 4.6 mg/dL | [facility] [...] + | [facility] | [address] | [place] | [phone] | | [facility] | | [address] | | | - LABORATORY | | [...] | | FILTRATION | mL/min/1.73m2 | [facility] | | | TURKISH | RATE,ESTIMATED | | MEDICAL | | | | mL/min/1.74n3Sgvm than | | CENTER - | | [...] ST. | [address] | [place] | [phone] | | [facility] | | [address] | | | - LABORATORY | | [...] | | + +---------+ + + [place] C-Arm Stats No Charge (07/13/2018 11:28 AM PST) + + | [...] | + + + + + | [facility] | [address] | [place] | [phone] | | [facility] | | [address] | | | - LABORATORY | | | | + + + + + Magnesium (07/13/2018 6:07 AM PST) + +-------+ + + + | Component | Value | Ref Range | Performed | Pathologist | | | | | At | Signature | + +-------+ + + + | Magnesium | 1.9 | 1.8 - 2.5 mg/dL | [facility] | | | | | | [facility] [...] [address] | [place] | [phone] | | [facility] | | [address] | | | - LABORATORY | | [...] | | nRBC | | K/uL | [facility] | | | | [...] [address] | [place] | [phone] | | [facility] | | [address] | | | - LABORATORY | | [...] 9 | 7 - 18 mg/dL | [facility] | | | | | | [facility] | | | | | | MEDICAL | | | | | | CENTER - | | | | | | LABORATORY | | + + + + + + | Creatinine | 0.56 (L) | 0.60 - 1.30 | [facility] | | | | | mg/dL | [facility] | | | | | | MEDICAL | | | | | | CENTER - | | | | | | LABORATORY | | + + + + + + | eGFR if not | >60Comment: GLOMERULAR | >=60 | [facility] | | | | FILTRATION | mL/min/1.73m2 | [facility] | | | T[place]ISH | RATE,ESTIMATED | | MEDICAL | | | | mL/min/1.82j6Vpov than | | CENTER - | | [...] | | | | | mg/dL | [facility] | | | | | | MEDICAL | | | | | | CENTER - | | | | | | LABORATORY | | + + + + + + | BUN/Creatin | 16.1 | | [facility] | | | ine Ratio | | | . [facility] | | | | [...] + | [facility] | [address] | [place] | [phone] | | [facility] | | [address] | | | - LABORATORY | | [...] | | | Yellow, Straw | [facility] | | | | [...] - 1.030 | [facility] | | | [place] | | | [facility] | | [...] [address] | [place] | [phone] | | [facility] | | [address] | | | - LABORATORY | | [...] | | | | | | on 07/14/18 at 0900 | | | | | [...] +---+---+ | | | +---+---+ + +-------+ + +---+ + | bacitracin-polymyxin (DOUBLE | Given | 07/13/20 | 1 | | Surgical | | ANTIBIOTIC, POLYSPORIN) [id number] | | 18 11:38 | Applicat | | Site | | UNIT/GM ointment OINT PRN, | | AM PST | ion | | | | Starting 07/13/18 at 1105, | | | | | | | Intra-op | | | | | | + +-------+ + +---+ + +---+---+ | | | +---+---+ + +-------+ +-------+---+ + | enoxaparin (LOVENOX) 60 mg/0.6 | Given | 07/17/20 | 60 mg | | Abdomen- | | mL injection 60 mg 60 mg, | | 18 8:35 | | | LLQ | | Subcutaneous, EVERY 12 HOURS (2 | | AM PST | | | | | times per day), First dose on Sat | | | | | | [...] +---+---+ | | | +---+---+ + +-------+ +--------+---+ + | ketorolac (TORADOL) 30 mg, | Given | 07/13/20 | 40 mLs | | Surgical | | EPINEPHrine 0.3 mL in ropivacaine | | 18 11:13 | | | Site | | (NAROPIN) 59 mL OpTesia mixture | | AM PST | | | | | PRN, Starting 07/13/18 at | | | | | | | 1031, Intra-op | | | | | | + +-------+ +--------+---+ + +---+---+ | | | +---+---+ + [...] +---+---+ | | | +---+---+ + +-------+ +--------+---+ + | ropivacaine (NAROPIN) 2 mg/mL | Given | 07/13/20 | 40 mLs | | Surgical | | (0.2%) 58 mL with EPINEPHrine 1 | | 18 11:30 | | | Site | | mg/mL 0.3 mg, ketorolac (TORADOL) | | AM PST | | | | | 30 mg/mL 30 mg Optesia Mixture | | | | | | | Infiltration, MERCHANDISE COMPLAINT ADJUSTER, Starting | | | | | | | 07/13/18 at 0635, For 1 dose, | | | | | | | Pre-op | | | | | | + +-------+ +--------+---+ + +---+---+ | | | +---+---+ + +-------+ +-------+---+ + | tobramycin powder PRN, | Given | 07/13/20 | 1.2 g | | Surgical | | Starting 07/13/18 at 1032, | | 18 11:26 | | | Site | | Intra-op | | AM PST | | | | + +-------+ +-------+---+ + +-------+ +-------+---+ + | Given | 07/13/20 | 1.2 g | | Hip-Righ | | | 18 11:02 | | | t | | | AM PST | | | | +-------+ +-------+---+ + +---+---+ | | | +---+---+ + +-------+ +-----+---+ + | vancomycin injection PRN, | Given | 07/13/20 | 1 g | | Surgical | | Starting 07/13/18 at 1033, | | 18 11:26 | | | Site | | Intra-op | | AM PST | | | | + +-------+ +-----+---+ + +-------+ +-----+---+ + | Given | 07/13/20 | 1 g | | Hip-Righ | | | 18 11:02 | | | t | | | AM PST | | | | +-------+ +-----+---+ + +---+---+ | | | +---+---+ documented in this encounter
--- OUTSIDE RECORDS SUMMARY | ~2019-06-13 | XMS | Encounter Summary ---
Demographics + + + | Address | [address] | | | [place] [address] | + + + | Home Phone | | + + + | Preferred Language | Unknown | + + + | Marital Status | | + + + | Caodaism Affiliation | 1041 | + + + | Race | Unknown | + + + | Ethnic Group | Unknown | + + + Author + + + | Author | [facility] | | | and [place] | + + + | Organization | [facility] | | | [...] Team Providers + +------+ + | Care In Home Nanny Name | Role | Phone | + [...] | | | | [address] | [place], [facility] | | | | | [place], [place] | [place], [place] | | | | | [address] | [address] | | | | | [phone] | | | +--------+ + + + [...] | | | | | [place], [place] | | | | | | [address] | | | | | | | | +--------+---------+ + + + | 11/04/ | Office | Pulmonology | Sukhjinder, | | | 2019 | Visit | | Windy Aldrich, | | | | | | MD [address] | | | | | | [place], | | | | | | [place] [address] | | | | | | [phone] | | | | | | | [...] | | | 2.81 cm AR Dec Rowan: 3.11 m/s2 AR Dec Time: 1329.52 ms [...] MV A Refugio: 1.01 m/s MV Dec Rowan: | | | 5.24 m/s2 MV DecT: 234.73 ms MV E Refugio: 1.23 m/s MV E/A | | | [...] | maxP.31 mmHg TR Vmax: 2.75 m/s Gallery Or Museum Technician: | | | Authenticated by: Nannette Morrison Report Date/Time: 12-05-2018 | | | 12:49:39 | | + + + + + | Procedure Note | + + | Jose, Rad Conversion - 03/12/2019 12:39 PM PDT Patient Name: Burton MARTINEZ | | of : 1940 Performing Physician: Nannette | | [facility] INDICATIONS------ | | -----Aortic insufficiency CONCLUSIONS 1. [...] mlLAESV Index (A-L): 41.90 ml/m2LAAs A2C: 18.80 [id number] A-L | | A2C: 53.18 mlLAESV MOD A2C: 50.94 mlLALs A2C: 5.64 cmLAAs A4C: 24.44 lx9BRLRH | | A-L A4C: 84.58 mlLAESV MOD A4C: 81.88 mlLALs A4C: 5.99 cmRAAs: 19.01 uf3JVKWP | | A-L: 54.56 mlRAESV MOD: 53.84 mlRALs: 5.62 cmTAPSE: 2.81 cmAR Dec Rowan: 3.11 | | m/s2AR Dec Time: 1329.52 msAR maxP.38 mmHgAR PHT: 385.56 msAR Vmax: 4.13 | | m/Ricci Env.Ti: 327.85 msAV maxP.53 mmHgAV meanP.83 mmHgAV Vmax: 1.69 | | m/Ricci Vmean: 1.24 m/Ricci VTI: 40.95 cmAVA Vmax: 1.90 cm2AVA (VTI): 1.88 hr2KMQA | | Vmax: 0.00 cm2/m2AVAI (VTI): 0.00 cm2/m2LVOT Env.Ti: 339.16 msLVOT maxP.08 | | mmHgLVOT meanP.21 mmHgLVSI Dopp: 46.75 ml/m2LVSV Dopp: 77.14 mlLVOT Vmax: | | 1.01 m/sLVOT Vmean: 0.71 m/sLVOT VTI: 24.11 cmMV A Refugio: 1.01 m/sMV Dec Rowan: | | 5.24 m/s2MV DecT: 234.73 msMV E Refugio: 1.23 m/sMV E/A Ratio: 1.20E/E' Sept: | | 30.77E' Lat: 0.04 m/sE' Sept: 0.03 m/sMV maxP.12 mmHgMV meanP.27 mmHgMV | | Vmax: 1.23 m/sMV Vmean: 0.68 m/sMV VTI: 36.36 cmMVA (VTI): 2.12 cm2RAP: 5 | | mmHgRV S': 0.15 m/sRVSP: 35.31 mmHgTR maxP.31 mmHgTR Vmax: 2.75 m/s | | Gallery Or Museum Technician:Authenticated by: Nannette Reyes Date/Time: 12-05-2018 12:49:39 | [...] | |TAPSE: 2.81 cm | |AR Dec Rowan: 3.11 m/s2 | |AR Dec Time: 1329.52 [...] A Refugio: 1.01 m/s | |MV Dec Rowan: 5.24 m/s2 | |MV DecT: 234.73 ms [...] |TR Vmax: 2.75 m/s | | | |Gallery Or Museum Technician: | |Authenticated by: Nannette Morrison | |Report [...]
--- OUTSIDE RECORDS SUMMARY | ~2019-06-13 | XMS | Encounter Summary ---
Demographics + + + | Address | [address] | | | [place] [address] | + + + | Home Phone [...] | | + + +---------+ + | Oceanogracie Red) | ECON | Unknown | | | Kalpesh | | | | + + +---------+ + Care Team Providers + +------+ + | Care Sheriff Officer Name | Role | Phone | [...] | | Chronic | [place], | [address] [place] | | | | | cough | Jenna B, | [place], | | | | | Procedures | MD [address] | [place] [address] | | | | | CT Chest w | [address] | Phone: | | | | | Contrast | [place], | [phone] | | | | | | [place] [address] | Fax: | | | | | | | [phone] | +--------+--------+ + + + + Reason [...] | | Chronic | [place], | [address] [place] | | | | | cough | Jenna B, | [place], | | | | | Dougie | [address] | [place] [address] | | | | | CT Chest w | [address] | Phone: | | | | | Contrast | [place], | [phone] | | | | | | [place] [address] | Fax: | | | | | | | [phone] | +--------+--------+ + + + + Encounter Details +--------+ + + + + | Date | Type | Department | Care Team | Description | +--------+ + + + + | 05/17/ | Hospital | [facility] | [place], | Chronic cough | | 2013 | Encounter | MED [facility] [address] | Jenna George MD | (Primary Dx) | | | | [place], | | | | | | [place] [address] | | | | | | [phone] | | | +--------+ + + + [...] | | | | | [place] | | | | | | [address] | | | | | | | | +--------+---------+ + + + | 11/04/ | Office | Pulmonology | Sukhjinder, | | | 2019 | Visit | | Windy Aldrich, | | | | | | [address] | | | | | | [place], | | | | | | [place] [address] | | | | | | [phone] | | | | | | | [...] + | MISCELLANEOUS LAB | | | [phone] | + +---------+ + + | MISCELANIOUS LAB | | | [phone] | + +---------+ + + documented in [...]
--- OUTSIDE RECORDS SUMMARY | ~2019-06-13 | XMS | Encounter Summary ---
Demographics + + + | Address | [address] | | | [place] [address] | + + + | Home Phone [...] Team Providers + +------+ + | Care Technical Training Specialist Name | Role | Phone | [...] George MD | | | | | [place], | | | | | | [place] [address] | | | | | | [phone] | | | +--------+ + + + [...] [place] | | | | | | [address] | | | | | | | | +--------+---------+ + + + | 11/04/ | Office | Pulmonology | Sukhjinder, | | | 2019 | Visit | | Windy Aldrich, | | | | | | [address] | | | | | | [place] | | | | | | [place] [address] | | | | | | [phone] | | | | | | | [...] | by: Jenna Maria MD 05/08/2014 15:11 [facility] | | | [facility] CC: Mike Saucedo | | + + [...] | | Jenna Maria MD 05/08/2014 [facility]11[facility] | | Mike Saucedo | + + [...] + | MISCELLANEOUS LAB | | | [phone] | + +---------+ + + | MISCELANIOUS LAB | | | [phone] | + +---------+ + + documented in this encounter Visit Diagnoses + + | Diagnosis | + + | Cough - Primary | + + documented in this encounter"
--- OUTSIDE RECORDS SUMMARY | ~2019-06-13 | XMS | Encounter Summary ---
Demographics + + + | Address | [address] | | | [place] [address] | + + + | Home Phone | | + + + | Preferred Language | Unknown | + + + | Marital Status | | + + + | Anabaptist Affiliation | CAT | + + + | Race | White | + + + | Ethnic Group | Not or | + + + Author + + + | Author | [facility] | + + + | Organization | [facility] | + + + | Address | Unknown | + + + | Phone | Unavailable | + + + Support + + + + + | Name | Relationship | Address | Phone | + + + + + | Jer Martinez | ECON | [address] | | | | [place], [place] | | | | | [address] | | + + + + + Care Team Providers + +------+ + | Care Network Controller Name | Role | Phone | [...] | | | | | Procedures | [facility] | [facility] | | | | | CONSULT TO | | Rd [place], | | | | | [place]STROENT[place] | [place] | [place] | | | | | [place] | [address] [address] | [address] | | | | | | [address] | Phone: | | | | | | [place], | [phone] | | | | | | [place] [address] | Fax: | | | | | | Phone: | [phone] | | | | | | [phone] | | | | | | | Fax: | | | | | | | [phone] | | +--------+--------+ + + + + [...] | | | | Mailcode: Center | [place], [place] | (Primary Dx) | | | | for Health and | [address] | | | | | [facility], [facility] [address] | [phone] | | | | | [place], [place] | | | | | | [address] | | | | | | [phone] | | | +--------+---------+ + + + [...] March MD - 03/18/2011 11:52 AM PDT [id number] 03/17/2011 [id number] MICHELLE MOORE [id number] [facility] AND [address] [place] [address] or Division of General Surgery, [id number]: March 17, 2011 Osbaldo Joshua M.D. [facility], [place] [address] RE: SHIREEN MARTINEZ MR #: [id number] Dear Dr. Joshua and Dr. Saucedo: I [...] personal regards, Doug March M.D. Professor and Vice-Counselor Aide of Surgery [employer] [facility] Pancreatic Disease [facility] ([facility]) Division of Gastrointestinal and General Surgery [facility] / HS [id number] / [id number] / [id number] / cc: * Mike Saucedo MD [facility] [address] [place] [address] Doug Fontanez MD - 03/17/2011 1:06 PM PDTI saw and evaluated the patient. I agree with the findings and the plan of care as documented in the resident s note. Doug aMrch M.D. [facility] ([facility]) Professor and Vice-Counselor Aide of Surgery [employer] [facility] Pancreatic Disease Research Pancreatic/ HepatoBiliary and Foregut Working Groups Mail Code [id number], [place]. [address] email: [email or web address] This office note has been dictated. CSN #: [id number] Joy navarrete MD,PhD - 02/28/2011 9:23 AM [...] the stricture was performed up to 57 Japanese diameter without any comp lications 3. Upper [...] ERASTO CORBETT MD, [facility], R-1 P.: [id number] documente d in this encounter Plan of Treatment Not on filedocumented as of this encounter Visit Diagnoses + + | Diagnosis | + + | GERD (gastroesophageal reflux disease) - Primary Esophageal reflux | + + documented in this encounter
--- OUTSIDE RECORDS SUMMARY | ~2019-06-13 | XMS | Encounter Summary ---
Demographics + + + | Address | [address] | | | [place] [address] | + + + | Home Phone [...] + | Author | [facility] | | | and [place] | + + + | Organization | [facility] | | | and [place] | + + + | Address | Unknown | + + + | Phone | Unavailable | + + + Support + + +---------+ + | Name | Relationship | Address | Phone | + + +---------+ + | Sade Beckwith | ECON | Unknown | | + + +---------+ + | Morogracie Red) | ECON | Unknown | | | Kalpesh | | | | + + +---------+ + Care Team Providers + +------+ + | Care Pest Technician Name | Role | Phone | + +------+ + | Mike Saucedo MD | PCP | | + +------+ + Reason for Visit + + + | Reason | Comments | + + + | Bronchitis | 3 month follow up | + + + Encounter Details +--------+---------+ + + + | Date | Type | Department | Care Team | Description | +--------+---------+ + + + | 01/02/ | Office | [facility] | [place], | Obstructive chronic | | 2015 | Visit | PULMONARY [address] | Jenna George MD | bronchitis ([facility]); | | | | [place], | | Bronchiectasis | | | | [place] [address] | | without complication | | | | [phone] | | ([facility]); | | | | | | Gastroesophageal | | | | | | reflux disease with | | | | | | esophagitis; | | | | | | Gastroparesis; | | | | | | Pulmonary nodules | +--------+---------+ + + + Social History [...] + + + | Blood Pressure | 140/70 | 01/03/2016 10:08 AM | | | | | PDT | | + + + + + | Pulse | 66 | 01/03/2016 10:08 AM | | | | | PDT | | + + + + + | Temperature | - | - | | + + + + + | Respiratory Rate | - | - | | + + + + + | Oxygen Saturation | 98% | 01/03/2016 10:08 AM | | | | | PDT | | + + + + + | Inhaled Oxygen | - | - | | | Concentration | | | | + + + + + | Weight | 63.1 kg (139 lb 3.2 | 01/03/2016 10:08 AM | | | | oz) | PDT | | + + + + + | Height | 165.1 cm (5' 5") | 01/03/2016 10:08 AM | | | | | PDT | | + + + + + | Body Mass Index | 23.16 | 01/03/2016 10:08 AM | | | | | PDT | | + + + + + documented in this encounter Patient Instructions Patient Instructions Jenna Maria MD - 01/03/2016 11:07 AM PDTNo changes today, k eep working on the reflux issues. Electronically signed by Jenna Maria MD at 01/02 11:07 AM PDT documented in this encounter Progress Notes Jenna Maria MD - 01/03/2016 10:15 AM PDTFormatting of this note might be differe nt from the original. Pulmonary Follow Up HPI Shireen Posey is a 75 y.o. female patient of Mike Saucedo MD here today f or follow up of obstructive chronic bronchitis. At their last visit, we repeated her PFTs and rechecked her CT scan. Since their last visit she feels like she has been doing overall about the same until recently, when her thinks she has been coughing a lot lately, which she wonders if it may be from nasal drainag e. She is not certain if it is seasonal, or from working outside, but she has not paid much attention to know if it is usually at this time of year. She has not had any acute illnesses . Her PFTs showed decreased air trapping, but also a decrease in her diffusion capacity by 9% . Her chest CT showed stable fibrotic and bronchiectatic changes. She is currently on a regimen of Spiriva 18 mcg once daily. She returns today for routine follow up. Her right knee prevents sustained walking, though she is up and about most of the day. She is up all day doing house work or yard work. She does not cough at any set time of the day. She does not wake up at night coughing. She sleeps primarily on her right side, but periodically wakes up feeling a full sensation, and has to lie on her back, and then can go back to her right side. She has been evaluated for nocturnal oxygen and does not need to use it. She had some heartburn for a while, and now is not having this. Since adjusting to the domp eridone, she feels like she is not having this. She is on omeprazole 20mg daily. She is als o on domperidone 3 times daily. She notes she has felt like she is going to lose her balance when she walks or turns. She f eels like she is not in control of her balance. Past Medical History Past Medical History Diagnosis [...] 2007 Ruptured appendix 1960 Placenta previa Bronchiectasis (HCC) Rheumatic aortic insufficiency Past Surgical History Past Surgical History Procedure Laterality Date Tonsillectomy and adenoidectomy 194 Appendectomy 1960 Breast lumpectomy 1997 Right Knee arthroscopy 2008 Right Bronchoscopy 1992 Venous closure 2010 Gastric fundoplication 2011 with hiatal hernia repair Skin cancer excision 2012 Colonoscopy 2013 Bladder repair 2011 Coapitite Procedure Social History: History Social History Marital Status: Spouse Name: N/A Number of Children: N/A Years of Education: N/A 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 Social History Main Topics Smoking status: Former Smoker -- 0.70 packs/day for 40 years Types: Cigarettes Quit date: 05/06/2009 Smokeless tobacco: Never Used Alcohol Use: No Drug Use: No Sexual Activity: Not on file Other Topics Concern None Social History Narrative [place]: [place] With: her Grew up: [place] previously lived in: [place] Exposure to toxic chemicals: DDT on crops and in well water, near to [facility] Exposure to asbestos: no Exposure to tuberculosis: no Has had a PPD or Quantiferon before: yes, negative Has pets at home: no Has ever owned birds: as a child, a pigeon Other animal exposures: not now Hobbies: scrapbooking, yardwork, gardening, baking, reading Allergies: No Known Allergies Medications: Outpatient Encounter Prescriptions as of 01/03/2016 Medication Sig Dispense Refill BABY ASPIRIN PO Take 81 mg by mouth. Calcium Carb-Cholecalciferol (CALCIUM 1000 + D PO) Take by mouth Daily. domperidone 10 mg capsule Take 10 mg by mouth 3 times daily (before meals). metroNIDAOLE (METROLOTION) 0.75 % LOTN Apply 1 Application topically 2 times daily. Misc. Devices (ACAPELLA) MISC Dx: 494.0 NIGEL: 99 months Use as directed twice daily. 1 e ach 1 omeprazole (PRILOSEC) 20 mg capsule TK 1 C PO 30 MIN B DINNER 3 SPIRIVA HANDIHALER 18 MCG inhalation capsule INHALE CONTENT OF ONE CAPSULE BY MOUTH ONC E DAILY 30 capsule 5 No facility-administered encounter medications on file as of 01/03/2016. Review of Systems: General: []Weight loss/gain (over 10 lbs) []Fever/chills/sweats []Night sweats EENT: []Hearing loss []Vision loss/change [x]Sinus congestion/nasal drainage []Nosebleeds [ x]Hoarseness Cardiac: []Chest pain []Palpitations/heart racing []Swelling of legs/ankles []Waking up at night s hort of breath []Difficulty sleeping flat Gastrointestinal: []Nausea/vomiting []Difficulty swallowing []Heartburn/acid reflux []Loss of appetite []Abd ominal pain Urologic: []Blood in urine []Frequent urination at night []Burning/painful urination []Difficulty wit h urination Objective BP 140/70 mmHg | Pulse 66 | Ht 1.651 m (5' 5") | Wt 63.141 kg (139 lb 3.2 oz) | BMI 23.16 k g/m2 | SpO2 98% | ? No General Appearance: Alert, cooperative, [...] sounds are diminished bilaterally with some squeak ing, no wheezes, crackles or rhonchi Chest Wall: Significant kyphosis Heart: Regular rate and rhythm, 2-3/6 soft diastolic murmur, no rub or gallop Abdomen: Soft, non-tender, non-distended, 1+ left lower extremity edema Extremities: No cyanosis, clubbing, 1+ left lower extremity edema Pulses: Radial pulses 2+ and symmetric Skin: Warm and dry Lymph nodes: Cervical and supraclavicular nodes normal Data: Chest CT scan was done on October 25, 2015 and was reviewed and interpreted in clinic today. I t shows stable right basilar bronchiectatic and fibrotic changes. Pulmonary function tests were performed on October 25, 2015 and were reviewed and interpreted in clinic today. They show normal spirometry, obstructive disease on lung volumes and a mil dly reduced diffusion capacity. Immunization History Administered Date(s) Administered INFLUENZA, TRIVALENT PRESERVATIVE FREE (PED/ADOL/ADULT) 04/06/2014, 05/20/2015 PNEUMOCOCCAL CONJUGATE 13-VALENT (PCV13) 03/11/2015 PNEUMOCOCCAL POLYSACCHARIDE 23-VALENT (PPSV23) 07/22/1992, 07/22/2010 TETANUS TOXOID ABSORBED, (ADOL/ADULT) 07/22/1995 ZOSTER, 1 DOSE (ADULT) 07/22/2010 Assessment ICD-10-CM ICD-9-CM 1. Obstructive chronic bronchitis (HCC) J44.9 491.20 On Spiriva which has been of some bene fit. 2. Bronchiectasis without complication (HCC) J47.9 494.0 This is mild, and concentrated yumiko rogerio at the right lung base, likely from reflux with aspiration. 3. Gastroesophageal reflux disease with esophagitis K21.0 530.11 On omeprazole and domperid one with current good control. 4. Gastroparesis K31.84 536.3 On domperidone and following with Dr. Nelson of GI. 5. Pulmonary nodules R91.[address] scan. Technically she should have a follow u p 10/2016. Plan 1.Continue on omeprazole and domperidone. 2. Continue on once daily Spiriva. 3.Continue lifestyle modification to prevent reflux. 4. She should have a repeat CT scan in 10/2016 for final nodule follow up. She was advised to call if new pulmonary symptoms were to develop. Return to clinic in 6 months, or sooner with concerns. CC: Mike Saucedo MD Portions of this report were transcribed using voice recognition software. Every effort wa s made to ensure accuracy; however, inadvertent computerized horticultural agent errors may be pre sent. documented in [...] [place] | | | | | | [id number] | | | | | | | | +--------+---------+ + + + | 11/04/ | Office | Pulmonology | Sukhjinder, | | | 2019 | Visit | | Windy Aldrich | | | | | | MD [address] | | | | | | [place] | | | | | | [place] [address] | | | | | | [phone] | | | | | | | | +--------+---------+ + + + documented as of this encounter Visit Diagnoses + + | Diagnosis | + + | Obstructive chronic bronchitis (HCC) Obstructive chronic bronchitis without | | exacerbation | + + | Bronchiectasis without complication (HCC) Bronchiectasis without acute exacerbation | + + | Gastroesophageal reflux disease with esophagitis | + + | Gastroparesis | + + | Pulmonary nodules Other nonspecific abnormal finding of lung field | + + documented in this encounter
--- OUTSIDE RECORDS SUMMARY | ~2019-06-13 | XMS | Encounter Summary ---
Demographics + + + | Address | [address] | | | [place] [address] | + + + | Home Phone | | + + + | Preferred Language | Unknown | + + + | Marital Status | | + + + | Adventism Affiliation | CAT | + + + | Race | White | + + + | Ethnic Group | Not or | + + + Author + + + | Author | [facility] | + + + | Organization | [facility] | + + + | Address | Unknown | + + + | Phone | Unavailable | + + + Support + + + + + | Name | Relationship | Address | Phone | + + + + + | Jer Posey | ECON | [address] | | | | | [place], [place] | | | | | [address] | | + + + + + Care Team Providers + +------+ + | Care Director Financial Planning Name | Role | Phone | + [...] | | 2010 | | Center at [facility] [address] | [address] | date for hernia | | | | [address] | [address] | surgery w/ Joaquim) | | | | Mailcode: [place] | [place], [place] | | | | | for Health and | [address] | | | | | [facility] 2 | [phone] | | | | | [place], [place] | | | | | | [address] | | | | | | [phone] | | | +--------+ + + + [...]
--- OUTSIDE RECORDS SUMMARY | ~2019-06-13 | XMS | Encounter Summary ---
Demographics + + + | Address | [address] | | | [place] [address] | + + + | Home Phone | | + + + | Preferred Language | Unknown | + + + | Marital Status | | + + + | Latter-Day Affiliation | CAT | + + + | Race | White | + + + | Ethnic Group | Not or | + + + Author + + + | Author | [facility] | + + + | Organization | [facility] | + + + | Address | Unknown | + + + | Phone | Unavailable | + + + Support + + + + + | Name | Relationship | Address | Phone | + + + + + | Jer Posey | ECON | [address] | | | | | [place], [place] | | | | | [address] | | + + + + + Care Team Providers + +------+ + | Care Hospitality Coordinator Name | Role | Phone | + +------+ + | Mike Saucedo MD | PCP | | + +------+ + Encounter Details +--------+ + + + + | Date | Type | Department | Care Team | Description | +--------+ + + + + | 04/30/ | Telephone | Digestive Health | Doug March, | | | 2010 | | [place] at [facility] [address] | [address] | | | | | [place] | [facility] | | | | | Mailcode: Center | [place], [place] | | | | | [facility] and | [address] | | | | | [facility] 2 | [phone] | | | | | [place], [place] | | | | | | [address] | | | | | | [phone] | | | +--------+ + + + [...]
--- OUTSIDE RECORDS SUMMARY | ~2019-06-13 | XMS | Encounter Summary ---
Demographics + + + | Address | [address] | | | [place] [address] | + + + | Home Phone | | + + + | Preferred Language | Unknown | + + + | Marital Status | | + + + | Jew Affiliation | 1041 | + + + | Race | Unknown | + + + | Ethnic Group | Unknown | + + + Author + + + | Author | [facility] | | | and [place] | + + + | Organization | [facility] | | | [...] Team Providers + +------+ + | Care Tool Grinding Machine Operator Name | Role | Phone | + +------+ + | Mike Saucedo MD | PCP | | + +------+ + Encounter Details +--------+ + + + + | Date | Type | Department | Care Team | Description | +--------+ + + + + | 02/04/ | Orders Only | [facility] | Narayan Talbert | | | 2014 | | CARDIOLOGY [place] | MD [address] | | | | | [address] | [address] | | | | | [place], [place] | [place] [address] | | | | | [address] | [phone] | | | | | [phone] | | | +--------+ + + + [...] [place] | | | | | | [address] | | | | | | | | +--------+---------+ + + + | 11/04/ | Office | Pulmonology | Sukhjinder, | | | 2019 | Visit | | Windy Aldrich | | | | | | MD [address] | | | | | | [place], | | | | | | [place] [address] | | | | | | [phone] | | | | | | | [...]
--- OUTSIDE RECORDS SUMMARY | ~2019-06-13 | XMS | Encounter Summary ---
Demographics + + + | Address | [address] | | | [place] [address] | + + + | Home Phone | | + + + | Preferred Language | Unknown | + + + | Marital Status | | + + + | Shinto Affiliation | 1041 | + + + | Race | Unknown | + + + | Ethnic Group | Unknown | + + + Author + + + | Author | [facility] | | | and [place] | + + + | Organization | [facility] | | | and [place] | + + + | Address | Unknown | + + + | Phone | Unavailable | + + + Support + + +---------+ + | Name | Relationship | Address | Phone | + + +---------+ + | Sade Beckwith | ECON | Unknown | | + + +---------+ + | [place]gracie Red) | ECON | Unknown | | | Kalpesh | | | | + + +---------+ + Care Team Providers + +------+ + | Care Straw Hat Brim Cutter Operator Name | Role | Phone | [...] George MD | | | | | [place], | | | | | | [place] [address] | | | | | | [phone] | | | +--------+ + + + [...] [place] | | | | | | [address] | | | | | | | | +--------+---------+ + + + | 11/04/ | Office | Pulmonology | Sukhjinder, | | | 2019 | Visit | | Windy Aldrich, | | | | | | MD [address] | | | | | | [place], | | | | | | [place] [address] | | | | | | [phone] | | | | | | | [...]
--- OUTSIDE RECORDS SUMMARY | ~2019-06-13 | XMS | Encounter Summary ---
Demographics + + + | Address | [address] | | | [place] [address] | + + + | Home Phone | | + + + | Preferred Language | Unknown | + + + | Marital Status | | + + + | Gnosticism Affiliation | CAT | + + + | Race | White | + + + | Ethnic Group | Not or | + + + Author + + + | Author | [facility] | + + + | Organization | [facility] | + + + | Address | Unknown | + + + | Phone | Unavailable | + + + Support + + + + + | Name | Relationship | Address | Phone | + + + + + | Jer Posey | ECON | [address] | | | | [place], [place] | | | | | [address] | | + + + + + Care Team Providers + +------+ + | Care Mining Professionals Name | Role | Phone | + +------+ + | Mike Saucedo MD | PCP | | + +------+ + Reason for Visit +--------+ + | Reason | Comments | +--------+ + | Preop | | +--------+ + Consultation (Routine) +--------+--------+ + + + + | Status | Reason | Specialty | Diagnoses / | Referred By | Referred To | | | | | Procedures | Contact | Contact | +--------+--------+ + + + + | Closed | | Surgery | Diagnoses | Josiane, | March, | | | | | Hernia, | Osbaldo Andrews, | MD Doug | | | | | hiatal | MD VICKERS | [address] | | | | | Procedures | [facility] | [facility] | | | | | CONSULT TO | | Arvind De La Torre, | | | | | GASTROENTERO | GASTROENTERO | [place] | | | | | LOG[place] | [address] | [address] | | | | | | [address] | Phone: | | | | | | [place], | [phone] | | | | | | [place] [address] | Fax: | | | | | | Phone: | [phone] | | | | | | [phone] | | | | | | | Fax: | | | | | | | [phone] | | +--------+--------+ + + + + Encounter Details +--------+---------+ + + + | Date | Type | Department | Care Team | Description | +--------+---------+ + + + | 05/16/ | Office | Digestive Health | Doug March, | Paraesophageal | | 2010 | Visit | Center at [facility] [address] | [address] | hernia (Primary Dx) | | | | [address] | [facility] | | | | | Mailcode: [place] | [place], [place] | | | | | [facility] and | [address] | | | | | [facility] 2 | [phone] | | | | | [place], [place] | | | | | | [address] | | | | | | [phone] | | | +--------+---------+ + + + [...] + + + | Blood Pressure | 160/65 | 05/16/2011 8:51 AM | | | | | PDT | | + + + + + | Pulse | 92 | 05/16/2011 8:51 AM | | | | | PDT | | + + + + + | Temperature | 36.8 C (98.3 F) | 05/16/2011 8:51 AM | | | | | PDT [...] + + + + | Weight | 66.9 kg (147 lb 8 | 05/16/2011 8:51 AM | | | | oz) | PDT | | + + + + + | Height | 165.1 cm (5' 5") | 05/16/2011 8:51 AM | | | | | PDT | | + + + + + | Body Mass Index | 24.55 | 05/16/2011 8:51 AM | | | | | PDT | | + + + + + documented in this encounter Patient Instructions Patient Instructions Delicia Mcneill RN - 05/16/2011 9:57 AM PDTEPICSPINPTPREOPINSTRUCTIONSP [facility] SURGERY INFORMATION [facility] General Surgery Office Toll-free: ext [phone] Surgery Date: May 22 Procedure: Laparoscopic, possible Open, Parker Fundoplication and Paraesophageal hernia rep air, possible Stephanie Gastroplasty Surgeon Name: Doug March MD DIRECTIONS FOR SURGERY DIET Nothing to [...] the surgery. Please see the list below, [facility] has a list of products that [...] until the day prior to surgery. S omeone will contact you with your check in time. If you do not hear from anyone by 3:00 PM please call the General Surgery Office at [phone] for [id number]. PARKING Parking for patients and visitors is available in the [facility] Parking structure located across from the emergency department. Patient parking is available on level 1 and 3. Mete red parking is available on the top level. CHECKING IN FOR SURGERY For Hospital Admission (in-patient) you will check in on the day of surgery at the Admittin g Department located on the 9th floor of [facility] TRANSPORTATION You will require transportation home on the day of discharge. Pain medications and physica l activity restrictions may limit your ability to drive safely. CANCELLING YOUR PROCEDURE Please notify the general surgery office at [phone] as soon as possible should you nee [...] prior to your surgery. PRODUCTS CONTAINING ASPIRIN [place], Anacin, Anexsia with Codeine, Andynos, Aspirin, Aspirin suppositories, Ascrip tin, Aspergum, Axotal, B-A-C, Baby Aspirin, Harley, BC Powder, Bexophene, Buffaprin, Bufferin , Buffinol, Cama-Arthritis Strength, Congespirin, Hern[place], Coricidin, Damason, Darvon, Dristan, Leni-Gesic, Digel, Dolprin #3 Tablets, Donatab, Doxaphene, Duragesic, Easprin, Ecotrin, Emag rin Forte, Emiprin, Emprazil, Equagesic, Equazine M, Excedrin, Fiogesic, Fiorgen PH, Fiorice t, Fiorinal, 4-Way Cold Tablet Gemnisyn, Indocin, Liquprin, Lortab ASA, Magnaprin, Marnal, Meprobamate, Midol, Momentum, N orgesic, Rogers, Orphengesic, Pabalate, P-A-C, Percodan, Presalin, Robaxasil, Roxiprin, David eto, Salocol SK-65 Compound, Sine-Aid, Sine-Off,, Shively, Supac, Talwin Compound, Trigesic, Tolectin , Traiminicin, Vanquish, ZORprin, Zomax PRODUCTS CONTAINING IBUPROFEN Advil, Aleve, Haltran, Medipren, Midol, Motrin, Naproxyn, Nuprin, Rufen OTHER PRODUCTS WHICH MAY PROMOTE BLEEDING Vitamin E, Gingko Biloba, Marine Fatty Acids, [place]-3 Fish Oil Supplements documented in this encounter Progress Notes Doug March MD - 05/23/2011 11:33 AM PDTI saw and evaluated the patient. I agree with the findings and the plan of care as documented in the resident s note. Doug March M.D. Formerly [employer] ([facility]) Professor and Vice-Supervisor Display Fabrication of Surgery The [facility] Chair for Pancreatic Disease Research Pancreatic/ HepatoBiliary and Foregut Working Groups Mail Code [id number], [place]. [address] email: [email or web address] Bibi Hadley MD - 05/16/2011 9:46 AM PDTShireen Posey is a 71 y.o. female who returns for preoperativ e evaluation s/p laparoscopic hiatal hernia repair. The patient presented to clinic back in February with symptoms of regurgitation and chest pain. Her symptoms have improved with diet m odification although she still does have occasional chest pain. 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 UGI showed a large hiatal hernia, Endoscopy revealed l arge hiatal hernia. On exam she appears well, abdomen is soft and nontender. My impression i s that the patient has a symptomatic hiatal hernia and my plan is laparoscopic paraesophagea l hernia repair, Parker fundoplication, possible Stephanie gastroplasty. The risks of gastric/e sophageal injury, bleeding, infection were explained and the patient wishes to proceed. BIBI MCKENNA MD documented in this encounter Plan of Treatment + +------+--------+ + + | Name | Type | Priori | Associated Diagnoses | Order Schedule | | | | ty | | | + +------+--------+ + + | 12 LEAD ECG | ECG | Routin | Paraesophageal | Ordered: 05/16/2011 | | | | e | hernia | | + +------+--------+ + + documented as of this encounter Visit Diagnoses + + | Diagnosis | + + | Paraesophageal hernia - Primary Diaphragmatic hernia without mention of obstruction | | or gangrene | + + documented in this encounter
--- OUTSIDE RECORDS SUMMARY | ~2019-06-13 | XMS | Encounter Summary ---
Demographics + + + | Address | [address] | | | [place] [address] | + + + | Home Phone | | + + + | Preferred Language | Unknown | + + + | Marital Status | | + + + | Shinto Affiliation | CAT | + + + | Race | White | + + + | Ethnic Group | Not or | + + + Author + + + | Author | [facility] | + + + | Organization | [facility] | + + + | Address | Unknown | + + + | Phone | Unavailable | + + + Support + + + + + | Name | Relationship | Address | Phone | + + + + + | Jer Posey | ECON | [address] | | | | | [place], [place] | | | | | [address] | | + + + + + Care Team Providers + +------+ + | Care Continuous Mining Machine Coal Miner Name | Role | Phone | [...] + + | 10/25/ | Hospital | [address] | Doug March, | | | 2012 - | Encounter | [address] | [place] [address] [facility] | | | | | 12/UHS31 [facility] | [address] | | | 10/27/ | | [facility], | [place], [place] | | | 2011 | | [place] [address] | [address] | | | | | [phone] | [phone] | | | | | | | [...] 'after hours' URGENT problems please call the [facility] veneer slicing machine operator at and ask for the "Blue [...] the resident s note. Doug March M.D. [facility] ([facility]) Professor and Vice-Room Service Associate of Surgery The [facility] Chair for Pancreatic Disease Research Pancreatic/ HepatoBiliary and Foregut Working Groups Mail Code L223A [address] [place], [place]. [address] email: [email or web address] Andie Dick - 10/28/2011 6:46 AM PDT [...] Dispo - home today ANNA Morales MBBS [facility] [address]A [address] [id number] [facility] [address] [facility] - 10/27/2011 6:16 AM PDT BLUE SURGERY [...] - encourage ambulation . ANNA Morales MBBS [facility] [address] [facility] [address] [facility] [address] Bibi Hadley MD - 10/26/2011 6:15 PM [...] Mckenna MD - 10/27/2011 9:42 PM PDT [id number] | | [id number] MICHELLE MOORE | | [id number] Date: 10/26/2011 Attending Surgeon: Doug Castellano | | Rose Marie March Crystal Attacher(s): Jose Mckenna MD Preoperative | | Diagnosis(es):Paraesophageal [...] Tycron sutures. At this | | point, k69-Auwagu followed by a 56-Malian Olvera dilator was passed down theesophagus. | [...] | operation. MD Doug Clemente M.D.Professor and Vice-Room Service Associate of | | [facility] Chair for Pancreatic Disease [facility] | [facility] ([facility])Division of Gastrointestinal and General Surgery JF / [id number] / | | [id number] / [id number] / T: 10/27/2011 | |left mid abdomen [...] up to the right alvin. The right alvni was then dissected | |inferiorly, and mediastinum [...] Tycron sutures. At this point, a | |44-Malian followed by a 56-Malian Olvera dilator was passed down the | |esophagus. Over this, a floppy Peter fundoplication was constructed with | |3 sutures of 0 Tycron, each incorporated in the body of the muscular wall | |of the esophagus. The Peter was approximately 2.5 cm in length and on the | |esophagus above the GE junction. The [place] drain was removed. The | |Olvera dilator [...] | |Doug March M.D. | |Professor and Vice-Room Service Associate of Surgery | |The [facility] for Pancreatic Disease Research | |[facility] ([facility]) | |Division of Gastrointestinal and General Surgery | | | | | |JF / HS | |[id number] / [id number] / [id number] / | | | | | | [...] | | | | | NIKKIE ORTEGA ([id number]) on | | | | | | 10/28/2011 12:35:04 PM | | | | + + + + + + + + | Specimen | + + | | + + + + + | Narrative | Performed At | + + + | Please click | [facility] DEPT OF | | on view image for the detailed interpretation from [employer] results. | CARDIOLOGY | + + + + + + + + | Performing | Address | City/State/Zipcode | Phone Number | | Organization | | | | + + + + + | [facility] DEPT OF | [address] | [place], [place] | | | CARDIOLOGY | [address] | [address] | | + + + + + [...] | + + + + + | [facility] DEPARTMENT | [address] | [place] [address] | | | PATHOLOGY | [address] [...] DEPARTMENT OF | [address] | [place] [address] | | | PATHOLOGY | [address] [...] + + + + | [facility] | [address] | [place] [address] | | | PATHOLOGY | [address] [...] view image for the detailed interpretation from [employer] results. | CARDIOLOGY | + + + + + + + + | Performing | Address | City/State/Zipcode | Phone Number | | Organization | | | | + + + + + | [facility] DEPT OF | [address] | [place], [place] | | | CARDIOLOGY | [address] | [address] | | + + + + + [...] + + + + | [facility] | [address] | [place] [address] | | | PATHOLOGY | [address] [...]
--- OUTSIDE RECORDS SUMMARY | ~2019-06-13 | XMS | Encounter Summary ---
Demographics + + + | Address | [address] | | | [place] [address] | + + + | Home Phone | | + + + | Preferred Language | Unknown | + + + | Marital Status | | + + + | Judaism Affiliation | CAT | + + + | Race | White | + + + | Ethnic Group | Not or | + + + Author + + + | Author | [facility] | + + + | Organization | [facility] | + + + | Address | Unknown | + + + | Phone | Unavailable | + + + Support + + + + + | Name | Relationship | Address | Phone | + + + + + | Jer Posey | ECON | [address] | | | | | [place], [place] | | | | | [address] | | + + + + + Care Team Providers + +------+ + | Care Edge Trimmer Mechanic Name | Role | Phone | + +------+ + | Mike Saucedo MD | PCP | | + +------+ + Reason for Visit Diagnostic Testing (Routine) +--------+--------+ + + + + | Status | Reason | Specialty | Diagnoses / | Referred By | Referred To | | | | | Procedures | Contact | Contact | +--------+--------+ + + + + | Closed | | Cardiology | Diagnoses | [place] | Delgado Echo | | | | | Preop | Steven Crisostomo, | [facility] [address] | | | | | examination | PYROTECHNICIAN-C,MPH | [address] | | | | | Procedures | [address] | [place] | | | | | | [address] | Mailcode: | | | | | [address] | [address] | [address] | | | | | C | [place] | [address] | | | | | ECHOCARDIOGR | [address] | Building | | | | | AM, ADULT | | [place], [place] | | | | | | | [address] | | | | | | | Phone: | | | | | | | [phone] | +--------+--------+ + + + + Encounter Details +--------+ + + + + | Date | Type | Department | Care Team | Description | +--------+ + + + + | 05/16/ | Hospital | Cardiac | | | | 2010 | Encounter | Non-Invasive Testing | | | | | | at [address] | | | | | | [address] | | | | | | [address] | | | | | | Mailcode: [address] | | | | | | [address] | | | | | | [place], | | | | | | [place] [address] | | | | | | [phone] | | | +--------+ + + + [...] + documented as of this encounter Progress Allyson Silva - 05/16/2011 2:30 PM PDTTransthoracic echocardiogram was completed today. Final report to follow. documented in this encoun ter Plan of Treatment Not on filedocumented as of this encounter Procedures + +--------+ + + + | Procedure Name | Priori | Date/Time | Associated Diagnosis | Comments | | | ty | | | | + +--------+ + + + | TRANSTHORACIC | | 05/16/2011 | | Results for this | | ECHOCARDIOGRAM, | | 12:00 AM | | procedure are in the | | ADULT | | PDT | | results section. | + +--------+ + + + documented in this encounter Results TRANSTHORACIC ECHOCARDIOGRAM, ADULT (05/16/2011 12:00 AM PDT) + + + | Narrative | Performed At | + + + | | | + + + + + | Transcriptions | + + | Other, Faculty - 05/16/2011 3:51 PM PDT | + + documented in this encounter Visit Diagnoses + + | Diagnosis | + + | Preop examination Preoperative examination, unspecified | + + documented in this encounter"
--- OUTSIDE RECORDS SUMMARY | ~2019-06-13 | XMS | Encounter Summary ---
Demographics + + + | Address | [address] | | | [place] [address] | + + + | Home Phone | | + + + | Preferred Language | Unknown | + + + | Marital Status | | + + + | Oriental Orthodox Affiliation | CAT | + + + | Race | White | + + + | Ethnic Group | Not or | + + + Author + + + | Author | [facility] | + + + | Organization | [facility] | + + + | Address | Unknown | + + + | Phone | Unavailable | + + + Support + + + + + | Name | Relationship | Address | Phone | + + + + + | Jer Posey | ECON | [address] | | | | | [address], [place] | | | | | [address] | | + + + + + Care Team Providers + +------+ + | Care Undergraduate Internship Name | Role | Phone | [...] Encounter | Non-Invasive Testing | [address] [facility] | | | | | [facility] | [facility] | | | | | [address] [place] [address] | [place] [address] | | | | | [facility] | | | | | | Mailcode: [address] [facility] | | | | | | [facility] | | | | | | [place] [facility] | | | | | | [place] [address] | | | | | | [phone] | | | +--------+ + + + [...] view image for the detailed interpretation from [employer] results. | CARDIOLOGY | + + + + + + + + | Performing | Address | City/State/Zipcode | Phone Number | | Organization | | | | + + + + + | [facility] | [address] | [place], [place] | | | CARDIOLOGY | [facility] | [address] | | + + + + + documented in this encounter Visit Diagnoses Not on filedocumented in this encounter
--- OUTSIDE RECORDS SUMMARY | ~2019-06-13 | XMS | Encounter Summary ---
Demographics + + + | Address | [address] | | | [place] [address] | + + + | Home Phone | | + + + | Preferred Language | Unknown | + + + | Marital Status | | + + + | Presybeterian Affiliation | 1041 | + + + | Race | Unknown | + + + | Ethnic Group | Unknown | + + + Author + + + | Author | [facility] | | | and [place] | + + + | Organization | [facility] | | | [...] Team Providers + +------+ + | Care Fitness Centre Manager Name | Role | Phone | [...] + + | 05/28/ | Documentati | [facility] | Matt Saxena, | Other (Faxed CT | | 2019 | on | PULMONOLOGY [address] | Branch Officer | order to Sarika) | | | | [address] | | | | | | [place], [place] | | | | | | [address] | | | | | | [phone] | | | +--------+ + + + [...] of this encounter Progress Notes Matt Saxena, Branch Officer - 05/28/2019 4:[address] [facility] berriosonically signed by Matt Saxena, Branch Officer at 05/28/2019 4:33 PM PSTdocument ed in [...] [place] | | | | | | [address] | | | | | | | | +--------+---------+ + + + | 11/04/ | Office | Pulmonology | Sukhjinder, | | | 2019 | Visit | | Windy Aldrich | | | | | | MD [address] | | | | | | [place] | | | | | | [place] [address] | | | | | | [phone] | | | | | | | | +--------+---------+ + + + documented as of this encounter Visit Diagnoses Not on filedocumented in this encounter"
--- OUTSIDE RECORDS SUMMARY | ~2019-06-13 | XMS | Encounter Summary ---
Demographics + + + | Address | [address] | | | [place] [address] | + + + | Home Phone | | + + + | Preferred Language | Unknown | + + + | Marital Status | | + + + | Hinduism Affiliation | CAT | + + + [...] [id number], [place] | | | | | [address] | | + + + + + Care Team Providers + +------+ + | Care Freight Car Cleaner Name | Role | Phone | + +------+ + | Mike Saucedo MD | PCP | | + +------+ + Reason for Referral Diagnostic Testing (Routine) +--------+--------+ + + + + | Status | Reason | Specialty | Diagnoses / | Referred By | Referred To | | | | | Procedures | Contact | Contact | +--------+--------+ + + + + | Closed | | Cardiology | Diagnoses | Brandon | Car Echo | | | | | Preop | Steven Crisostomo, | [facility] [address] | | | | | examination | AIRCRAFT LIFE SUPPORT FITTER-C,MPH | Ayana Taylor | | | | | Procedures | [address] | Sara Samuels | | | | | | Brandon Ruiz | Mailcode: | | | | | TRANSTHORACI | Rd | [id number] | | | | | C | [facility] [place] | Brandon Suarez | | | | | ECHOCARDIOGR | [address] | Building | | | | | AM, ADULT | | [place], [place] | | | | | | | [address] | | | | | | | Phone: | | | | | | | [phone] | +--------+--------+ + + + + Reason for Visit +--------+ + | Reason | Comments | +--------+ + | Preop | | +--------+ + Encounter Details +--------+---------+ + + + | Date | Type | Department | Care Team | Description | +--------+---------+ + + + | 05/16/ | Office | Preoperative | Steven Taylor | Preop examination; | | 2010 | Visit | Medicine Clinic at | T, [employer] SUPPORT FITTER-C,MPH | Diabetes mellitus | | | | [address] 4[address] | | screening; Other | | | | [address] | | specified | | | | Mailcode: CH4S | | pre-operative | | | | [facility] | | examination | | | | and Healing, | | | | | | Building 1,4th Floor | | | | | | [place], [place] | | | | | | [address] | | | | | | [phone] | | | +--------+---------+ + + + [...] + + + | Blood Pressure | 150/71 | 05/16/2011 10:50 AM | | | | | PDT | | + + + + + | Pulse | 65 | 05/16/2011 10:50 AM | | | | | PDT | | + + + + + | Temperature | 36.2 C (97.2 F) | 05/16/2011 10:50 AM | | | | | PDT | | + + + + + | Respiratory Rate | 14 | 05/16/2011 10:50 AM | | | | | PDT | | + + + + + | Oxygen Saturation | 100% | 05/16/2011 10:50 AM | | | | | PDT | | + + + + + | Inhaled Oxygen | - | - | | | Concentration | | | | + + + + + | Weight | 64.4 kg (142 lb) | 05/16/2011 10:50 AM | | | | | PDT | | + + + + + | Height | 165.1 cm (5' 5") | 05/16/2011 10:50 AM | | | | | PDT | | + + + + + | Body Mass Index | 23.63 | 05/16/2011 10:50 AM | | | | | PDT | | + + + + + documented in this encounter Patient Instructions Patient Instructions Steven Taylor, ENRIQUETA,MPH - 05/16/2011 10:58 AM PDT PREOPERATIVE INSTRUCTIONS Do not eat or drink anything after midnight the night before surgery. TAKE the following medications with a sip of water on the morning of surgery: omeprazole magnesium (PRILOSEC OTC) 20 mg Oral Tablet, Delayed Release (E.C.) Do NOT take the following medications on the morning of surgery: Do not take any Aspirin, vitamin E or non-steroidal anti-inflammatory (NSAIDs i.e. Advil , Aleve, Ibuprofen) or herbal supplements seven days prior to your surgery. These drugs may interfere with normal blood clotting and may cause excessive bleeding and bruising during or after the surgery. Please see the list below for more products that contain Aspirin, Ibupro fen, or Vitamin E If you are taking Coumadin (warfarin), Plavix or any other blood thinners please let you r surgical team know as medication changes will be necessary. If you need a pain medication for general purposes, use Tylenol as directed. If you are in doubt about any medications that you are taking, please contact our office . AVOID THESE MEDICATIONS FOR 7 DAYS BEFORE SURGERY PRODUCTS CONTAINING ASPIRIN OR NON-STEROIDAL ANTI-INFLAMMATORY DRUGS (NSAIDs) Advil, Aleve, [place], Anacin, Arthopan, Ascriptin, Aspergum, Aspirin with and without codeine, Harley aspirin. Bufferin, Butalbital, Butazone, Cataflam, Clinoril, Co-Advil, Coges ic, Daypro, Diclofenac, Diflunisal, Dipyridamole, Disalcid, Wellington s, Dolene, Dolobid, Easpi rin, Etodolac, Feldene, Fenoprofen, Ibuprofen, Indocin, Indomethacin, Lodine, Meclofenamate, Menadol, Meprobamate/Aspirin, Midol, Motrin and Motrin IB, Nabumetone, Naproxen, Norgesic, Nuprin, Nytol, Nyquil, Orudis, Oruvail, Oxyphenbutazone, Pamprin, Pepto Bismol, Percodan, P ersantine, Phenylbutazone, Piroxicam, Relafen, Robomol, Rufen, Sine-aid, Pavillion s cold tablets, Sulindac, Talwin, Tolectin, Triaminicin, Trigesic, Voltaren, Zorprin. OTHER PRODUCTS WHICH MAY PROMOTE BLEEDING Vitamin E, Gingko Biloba Important Guidelines Please do not shave the surgical site before the surgery Do not smoke, drink alcohol or use recreational drugs for 24 hours before your surgery Do not eat any hard candy or chew gum after midnight the night before your surgery. Watch for any change in your health condition. Let your surgeon know right away if you do not feel well. Do not wear makeup, perfume, lotions or powder. Remove any nail tamazight from at least one fingernail. Do not wear any jewelry to the hospital. Wear loose, comfortable clothing. Bring the case and solution for your contact lenses or wear your glasses. Leave all your valuables at home. Allow enough travel time so you re not late for your check in for surgery. Take a bath or shower and remember to shampoo your hair using your usual hair product be fore your arrival at the hospital. Please remember to brush your teeth the night before and the morning of your procedure. HIBICLENS GUIDE TO GENERAL SKIN CLEANSING AT HOME BEFORE SURGERY General Skin Cleansing Instructions: Hibiclens is not to be used on the head or face, keep out of the eyes, ears and mouth. Hibiclens is not to be used in the genital area. Hibiclens should not be used if you are allergic to chlorhexidine gluconate or any other in gredients in this preparation. *See Hibiclens label for full product information and precautions. When you bathe or shower the night before your surgery: If you plan to wash your hair, do so with your regular shampoo. Then rinse hair and body th oroughly to remove any shampoo residue. Wash your face with your regular soap or water only. Thoroughly rinse your body with warm water from neck down. Use Hibiclens as you would any other liquid soap. Please do not put the Hibiclens on a wash cloth, apply directly to the skin and wash gently. Apply the minimum amount of Hibiclens n ecessary to cover the skin. Leave the Hibiclens on your skin for 1 minute, then rinse off. Rinse thoroughly with warm water. Do not use your regular soap after applying and rinsing Hibiclens. When using Hibiclens for a second day in a row (morning of surgery, as soon as you wake up) : Shower/bathe again using Hibiclens in the same method as described above. Do not apply any lotions, deodorants, powders or perfumes to the body areas that have been cleaned with Hibiclens. Pain management after surgery Following surgery, at regular intervals, your nurse will ask you to rate your pain on a scale of 0-10 (0 is no pain and 10 is the worst pain you can imagine). A variety of pain management strategies may be appropriate, such as intravenous medicati ons, oral medications, peripheral nerve bocks or epidural catheters that can deliver local a nesthetic to cover the area of your surgical incision. Please discuss this with your anesth esiologist to receive additional information about what might be appropriate for you. The goal for pain control therapy is to be comfortable enough to change your position, c ough and take deep breaths. You will be asked to do such activities to help prevent complic ations. Preventing post op complications Use an incentive spirometer or peep breathe to keep your lungs working properly an d to help prevent respiratory complications. It helps you take long, deep breaths. Use it at least once every hour while you are awake. Leg and feet exercises will maintain good circulation and help prevent blood clots in yo ur legs. Sometimes your doctor will order air compression stockings. Compressed air helps the circulation in your legs. Walking and moving will help stimulate normal circulation and deep breathing. After you r surgery, your nurse may ask you to sit, stand or walk. Surgery Check in Locations Admitting [facility] Surgery Check in Time: Someone from your surgeon's office will provide you with informat ion regarding your check in time. If you have any questions about this, please contact your surgeon's office. Going Home Your surgical team will decide when you are medically ready to go home. You will require transportation home on the day of discharge. Pain medications and physi florecita activity restrictions may limit your ability to drive safely. It is also recommended th at you have someone assist you and look after you on the first night after you are released to go home. If you are released to go home on the same day as your procedure/surgery please note the following: You will not be competent to drive and will require someone else to transport y ou home on the day of discharge since pain medications and physical activity restrictions li hamilton your ability to drive safely. It is also required that you have someone assist you and look after you on the first night after you have undergone regional blocks, deep sedation, a nd/or general anesthesia. If you stayed in the hospital after surgery, please arrange for your ride to come for yo u around 9AM on the day your doctor says you can go home. Check out time is 11AM. If you have questions or concerns after you go home, call your doctor s office. If it is after office hours, call the [facility] uniform cap operator at [phone] and ask them to page your doc tor. documented in this encounter Progress Notes Steven Taylor FNP-C,MPH - 05/16/2011 6:25 PM PDTReviewed results of transthoracic echocardiogram (05/16/11) as noted below per Epic, patient is okay to proceed with surgery. 1. The left ventricular cavity size is normal. 2. The LV systolic function is normal. 3. Mild-moderate aortic insufficiency, otherwise no significant valve disease. Per transthoracic echocardiogram 04/26/2008 ([place], [place]): " Conclusion 1. Normal LV systolic function. 2. Mild left atrial enlargement. 3. Mild mitral, tricuspid, and aortic regurgitation." Shireen Posey was evaluated today in Preoperative Medicine Clinic for her scheduled pr ocedure on 05/22/11. Shireen Posey does not require further medical optimization or ri sk stratification, and can proceed to surgery as scheduled according to AHA guidelines. Please see scanned Preop H & P in the "Media" tab under ANESTHESIA PREOP EVALUATION. RADHA ANGELES, MPH [facility] PREOPERATIVE MEDICINE CLINIC [address] [place] [address] randon, ENRIQUETA Connell,MPH - 05/16/2011 2:03 PM PDTSee Scanned H&P. H and P entered into Centricity(Chart review, Media tab) Fitness for surgery contingent on results from transthoracic echocardiogram. Steven Taylor RN, RADHA, MPH PREOPERATIVE MEDICINE CLINIC [address] [facility] Mail Code: [address] [facility] [address] oe Guzman MA - 05/16/2011 1:19 PM PDT Venipuncture performed in clinic, blood sample obtained from Left antecubital site Hemoglob in A1C POCT performed during clinic visit. Blood sample obtained from venipuncture performed to obtain other lab tests. 2:4 4 PM PDTdocumented in this encounter Plan of Treatment + +------+--------+ + + | Name | Type | Priori | Associated Diagnoses | Order Schedule | | | | ty | | | + +------+--------+ + + | TRANSTHORACIC | ECG | Routin | Preop examination | Ordered: 05/16/2011 | | ECHOCARDIOGRAM, | | e | | | | ADULT | | | | | + +------+--------+ + + documented as of this encounter Procedures + +--------+ + + + | Procedure Name | Priori | Date/Time | Associated Diagnosis | Comments | | | ty | | | | + +--------+ + + + | SD COLLECTION VENOUS | Routin | 05/16/2011 | Other specified | | | BLOOD,VENIPUNCTURE | e | 1:19 PM | pre-operative | | | | | PDT | examination | | + +--------+ + + + | HEMOGLOBIN A1C, POC | Routin | 05/16/2011 | Diabetes mellitus | Results for this | | | e | 11:53 AM | screening | procedure are in the | | | | PDT | | results section. | + +--------+ + + + | COMPLETE METABOLIC | Routin | 05/16/2011 | Preop examination | Results for this | | SET | e | 11:03 AM | | procedure are in the | | (NA,K,CL,CO2,BUN,CRE | | PDT | | results section. | | AT,GLUC,CA,AST,ALT,B | | | | | | PEGGY TOTAL,ALK | | | | | | PHOS,ALB,PROT TOTAL) | | | | | + +--------+ + + + | CBC ONLY | Routin | 05/16/2011 | Preop examination | Results for this | | | e | 11:03 AM | | procedure are in the | | | | PDT | | results section. | + +--------+ + + + | TYPE AND SCREEN | Routin | 05/16/2011 | Other specified | Results for this | | | e | 11:03 AM | pre-operative | procedure are in [...] | + +--------+ + + + | OUTSIDE CARDIOLOGY | | 04/23/2008 | | Results for this | | | | 12:00 AM | | procedure are in the | | | | PDT | | results section. | + +--------+ + + + documented in this encounter Results HEMOGLOBIN A1C, POC (05/16/2011 11:53 AM PDT) + +-------+ + + + | Component | Value | Ref Range | Performed | Pathologist | | | | | At | Signature | + +-------+ + + + | HEMOGLOBIN | 5.3 | 4.0 - 5.7 % | [facility], | | | A1C,POC | | | POINT OF | | | | | | CARE TESTS | | + +-------+ + + + + + | Specimen | + + | Blood | + + + + + + + | Performing | Address | City/State/Zipcode | Phone Number | | Organization | | | | + + + + + | [facility] | [address] | [place] [address] | | | OF CARE TESTS | | | | + + + + + TYPE AND SCREEN (05/16/2011 11:03 AM PDT) + + + + + [...] | + + + + + | [facility] DEPARTMENT OF | [address] | [place] [address] | | | PATHOLOGY | [address] | | | + + + + + CBC ONLY (05/16/2011 11:03 AM PDT) + +-------+ + + + | Component | Value | Ref Range | Performed | Pathologist | | | | | At | Signature | + +-------+ + + + | WHITE CELL | 8.4 | 4.4 - 11.0 K/cu | [facility] | | | COUNT | | mm | DEPARTMENT | | | | | | OF | | | | | | PATHOLOGY | | + +-------+ + + + | RED CELL | 4.09 | 4.00 - 5.20 | [facility] | [...] +-------+ + + + | HEMATOCRIT | 37.4 | 36.0 - 46.0 % | [facility] | | | | | | DEPARTMENT | | | | | | OF | | | | | | PATHOLOGY | | + +-------+ + + + | MCV | 91.4 | 80.0 - 96.0 fL | [facility] | | | | | | DEPARTMENT | | | | | | OF | | | | | | PATHOLOGY | | + +-------+ + + + | MCHC | 34.4 | 33.4 - 35.5 | [facility] | | | | | g/dL | DEPARTMENT | | | | | | OF | | | | | | PATHOLOGY | | + +-------+ + + + | RDW | 13.5 | 11.5 - 15.0 % | [facility] | | | | | | DEPARTMENT | | | | | | OF | | | | | | PATHOLOGY | | + +-------+ + + + | PLATELET | 283 | 150 - 400 K/cu | [facility] [...] | + + + + + | [facility] DEPARTMENT | [address] | [place] [address] | | | PATHOLOGY | [address] | | | + + + + + COMPLETE METABOLIC SET (NA,K,CL,CO2,BUN,CREAT,GLUC,CA,AST,ALT,BILI TOTAL,ALK PHOS,ALB,PROT TOTAL) (05/16/2011 11:03 AM PDT) + + + + + + | Component | Value | Ref Range | Performed | Pathologist | | | | | At | Signature | + + + + + + | GLUCOSE, | 68 | 60 - 99 mg/dL | [facility] | | | PLASMA | | | DEPARTMENT | | | (LAB) | | | OF | | | | | | PATHOLOGY | | + + + + + + | BUN, PLASMA | 7 | 6 - 20 mg/dL | [facility] | | | (LAB) | | | DEPARTMENT | | | | | | OF | | | | | | PATHOLOGY | | + + + + + + | CREATININE | 0.62 | 0.60 - 1.10 | [facility] | | | PLASMA | | mg/dL | DEPARTMENT | | | (LAB) | | | OF | | | | | | PATHOLOGY | | + + + + + + | TOTAL | 7.0 | 6.1 - 7.9 g/dL | [facility] | | | PROTEIN, | | | DEPARTMENT | | | PLASMA | | | OF | | | (LAB) | | | PATHOLOGY | | + + + + + + | ALBUMIN, | 3.9 | 3.5 - 4.7 g/dL | [facility] [...] + + + + | BILIRUBIN | 0.6 | 0.3 - 1.2 mg/dL | [facility] | | | TOTAL | | | DEPARTMENT | | | | | | OF | | | | | | PATHOLOGY | | + + + + + + | ALK PHOS | 73 | 53 - 141 U/L | [facility] | | | | | | DEPARTMENT | | | | | | OF | | | | | | PATHOLOGY | | + + + + + + | AST(SGOT) | 18 | 15 - 41 U/L | [facility] | | | | | | DEPARTMENT | | | | | | OF | | | | | | PATHOLOGY | | + + + + + + | SODIUM, | 141 | 134 - 143 | [facility] | | | PLASMA | | mmol/L | DEPARTMENT | | | (LAB) | | | OF | | | | | | PATHOLOGY | | + + + + + + | POTASSIUM, | 3.3 (L) | 3.4 - 5.0 | [facility] | [...] + + + | TOTAL CO2, | 30 (H) | 22 - 29 mmol/L | [facility] | | | PLASMA | | | DEPARTMENT | | | (LAB) | | | OF | | | | | | PATHOLOGY | | + + + + + + | ALT (SGPT) | 15 | 13 - 48 U/L | [facility] | | | | | | DEPARTMENT | | | | | | OF | | | | | | PATHOLOGY | | + + + + + + | EGFR | > 60 | >60 mL/min | [facility] | | | - | | | DEPARTMENT | | | [place] | | | OF | | | [...] + + + | ANION GAP | 5 | 4 - 11 mmol/L | [facility] | | | | | | DEPARTMENT | | | | | | OF | | | | | | PATHOLOGY | | + + + + + + | ANION | 5 | 4 - 11 mmol/L | [facility] [...] | + + + + + | [facility] | [address] | [place] [address] | | | PATHOLOGY | [address] | | | + + + + + 12 LEAD ECG (05/16/2011 11:02 AM PDT) [...] | | | | | MISAEL ABREU () | | | | | | on 05/16/2011 5:59:50 PM | | | | + + + + + + + + | Specimen | + + | | + + + + + | Narrative | Performed At | + + + | Please click | [facility] DEPT OF | | on view image for the detailed interpretation from Parrut results. | CARDIOLOGY | + + + + + + + + | Performing | Address | City/State/Zipcode | Phone Number | | Organization | | | | + + + + + | [facility] | [address] | [place], [place] | | | CARDIOLOGY | [address] | [address] | | + + + + + OUTSIDE CARDIOLOGY (04/23/2008 12:00 AM PDT) + + + | Narrative | Performed At | + + + | | | + + + + + | Transcriptions | + + | Husam Hernandez - 05/17/2011 8:03 AM PDT | + + documented in this encounter Visit Diagnoses + + | Diagnosis | + + | Preop examination Preoperative examination, unspecified | + + | Diabetes mellitus screening Screening for diabetes mellitus | + + | Other specified pre-operative examination | + + documented in this encounter
--- OUTSIDE RECORDS SUMMARY | ~2019-06-13 | XMS | Clinical Summary ---
Demographics + + + | Address | [address] | | | [place] [address] | + + + | Home Phone | | + + + | Preferred Language | Unknown | + + + | Marital Status | | + + + | Congregational Affiliation | 1041 | + + + [...] Team Providers + +------+ + | Care Logistics Planner Name | Role | Phone | [...] Question | | 2019 | | | Terrazzo Worker Helper | (L_Arginine and Vit | | | | | | B12) | +--------+ + + + + | 06/03/ | Documentati | Pulmonology | Matt Saxena S, | Other (faxed | | 2019 | on | | Terrazzo Worker Helper | albuterol rx to | | | | | | medicare) | +--------+ + + + + | 05/28/ | Documentati | Pulmonology | Matt Saxena S, | Other (Faxed CT | | 2018 | on | | Terrazzo Worker Helper | order to 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 | | | | | | ([facility]); Personal | | | | | | [...] | + + + + | INFLUENZA, [id number], | 10/25/2009 | | | UNSPECIFIED | [...] + + | Father | | | [place] | | | | (Age | | [...] | | | | | [place], [place] | | | | | | [address] | | | | | | | | +--------+---------+ + + + | 11/04/ | Office | Pulmonology | Sukhjinder, | | | 2020 | Visit | | Windy Aldrich, | | | | | | [address] | | | | | | [place], | | | | | | [place] [address] | | | | | | [phone] | | | | | | | [...] | | 08/21/ | 00-111 | | [id number]: Qty: 2 | c | Femur | ZIMM | | 2021 | 2-140- | | on 07/13/2018 by Rodrigo, | | | | | | 01 / | | Abdi Guajardo MD at [facility] | | | | | | /[id number] | | [facility] | | | | | | 592 | | CENTER | | | | | | | + +--------+--------+ +--------+--------+--------+ | Imp Hip Stem Cntrlzr 9mm - | Generi | Right: | [facility] DEPUY | | 12/19/ | 1376-4 | | [id number]: Qty: 1 | c | Femur | ORTHO - | | 2020 | 7-000 | | on 07/13/2018 by Rodrigo, | | | DEPU | | | / | | Abdi Guajardo MD at [facility] | | | | | | /[id number] | | [facility] | | | | | | 2 | | CENTER | | | | | | | + +--------+--------+ +--------+--------+--------+ | Imp Hip Stem Bplr Slfctr | Generi | Right: | [facility] DEPUY | | 02/18/ | 1035-4 | | 49x28 - [id number]: | c | | ORTHO - | | 2022 | 9-000 | | Qty: 1 on 07/13/2018 by | | Acetab | DEPU | | | / | | Abdi Wallace MD at | | ulum | | | | /[id number] | | [facility] | | | | | | 5 | | [facility] | | | | | | | + +--------+--------+ +--------+--------+--------+ | Imp Hip Fem Stem Sumt Sz3 - | Generi | Right: | JJS DEPUY | | 05/21/ | 1570-1 | | [id number]: Qty: 1 | c | Femur | ORTHO - | | 202 | 3-090 | | on 07/13/2018 by Rodrigo, | | | DEPU | | | / | | Abdi Guajardo MD at [facility] | | | | | | /[id number] | | [facility] | | | | | | [address] | | CENTER | | | | | | | + +--------+--------+ +--------+--------+--------+ | Imp Hip Fem Hd Artc 28 | Generi | Right: | [facility] DEPUY | | 12/19/ | 1365-1 | | [id number] - | c | Femur | ORTHO - | | 3 | 1-000 | | [id number]: Qty: 1 | | | DEPU | | | / | | on 07/13/2018 by Rodrigo, | | | | | | /[id number] | | Abdi Guajardo MD at [facility] | | | | | | [address]14 | | [facility] | | | | | | | [...] +--------+ +---------+--------+ | CIGNA | CIGNA | [id number] | Effect | [phone] | | Indemn [...] +--------+ +---------+--------+ | MEDICARE | MEDICA | [id number] | 03/22/20 | [phone] | | Medica | | | RE | | 04-Pre | 5 | | re | | | PART A | | sent | | | | | | AND B | | | | | | + +--------+ +--------+ +---------+--------+ | MEDICARE | MEDICA | [id number] | 11/20/19 | [phone] | | Medica | | | RE | | 05-Pre | 5 | | re | | | PART A | | sent | | | | | | AND B | | | | | | + +--------+ +--------+ +---------+--------+ | MEDICARE SUPPLEMENT | MEDICA | [id number] | 08/22/19 | [phone] | | Indemn [...] [place] | | | 0 (Home) | [address] | + +--------+ +--------+ + + | Kalpesh,Shireen | Person | Self | [birth year] | [address] | | [place] | al/Fam | | 1940 | [phone] | [place], [place] | | | [place] | | | 0 (Home) | [address] | + +--------+ +--------+ + + Advance Directives + + + + + | Type | Date Recorded | Patient | Explanation | | | | Assessment Nurse | | + + + + + | Power of | | | | | Principal Statistical Programmer | | | | + + + [...]
--- OUTSIDE RECORDS SUMMARY | ~2019-06-13 | XMS | Encounter Summary ---
Demographics + + + | Address | [address] | | | [place] [address] | + + + | Home Phone [...] | | + + +---------+ + | [place]) | ECON | Unknown | | | Kalpesh | | | | + + +---------+ + Care Team Providers + +------+ + | Care Locum Tenens Name | Role | Phone | + +------+ + | Mike Saucedo MD | PCP | | + +------+ + Encounter Details +--------+ + + + + | Date | Type | Department | Care Team | Description | +--------+ + + + + | 02/11/ | Orders Only | [facility] | Provider, | Bronchiectasis | | 2019 | | SYSTEM GENERIC OP | MD [address] | without complication | | | | CONVERSION [address] | [address] | ([facility]) | | | | [address] [place], [place] | [place] [address] | | | | | [address] | | | | | | [phone] | | | +--------+ + + + [...] [place] | | | | | | [address] | | | | | | | | +--------+---------+ + + + | 11/04/ | Office | Pulmonology | Sukhjinder, | | | 2019 | Visit | | Windy Aldrich, | | | | | | MD [address] | | | | | | [place], | | | | | | [place] [address] | | | | | | [phone] | | | | | | | [...]
--- OUTSIDE RECORDS SUMMARY | ~2019-06-13 | XMS | Encounter Summary ---
Demographics + + + | Address | [address] | | | [place] [address] | + + + | Home Phone [...] | | + + +---------+ + | Camillusgracie Red) | ECON | Unknown | | | Kalpesh | | | | + + +---------+ + Care Team Providers + +------+ + | Care Wage Conciliator Name | Role | Phone | + [...] | | Pulmonary | [place], | [address] | | | | | nodules | Jenna George, | [place], | | | | | Procedures | MD [address] | [place] [address] | | | | | CT Chest wo | [address] | Phone: | | | | | Contrast | [place], | [phone] | | | | | | [place] [address] | Fax: | | | | | | | [phone] | +--------+--------+ + + + + Encounter Details +--------+ + + + + | Date | Type | Department | Care Team | Description | +--------+ + + + + | 11/10/ | Hospital | [facility] | Offenstein, | Pulmonary nodules | | 2015 | Encounter | MED CTR CT [address] | Jenna George MD | | | | | [place], | | | | | | [place] [address] | | | | | | [phone] | | | +--------+ + + + [...] [place] | | | | | | [address] | | | | | | | | +--------+---------+ + + + | 11/04/ | Office | Pulmonology | Sukhjinder, | | | 2019 | Visit | | Windy Aldrich, | | | | | | MD [address] | | | | | | [place] | | | | | | [place] [address] | | | | | | [phone] | | | | | | | [...] Chest CT dated May 17, 2014. | [facility] | | TECHNIQUE: Axial images are obtained from thoracic inlet to [facility] | | abdomen without contrast. DOSE: DLP [...] [address] | [place] | [phone] | | [facility] | | [address] | | | - IMAGING | | | | + + + + + documented in this encounter Visit Diagnoses + + | Diagnosis | + + | Pulmonary nodules Other nonspecific abnormal finding of lung field | + + documented in this encounter"
--- OUTSIDE RECORDS SUMMARY | ~2019-06-13 | XMS | Clinical Summary ---
Demographics + + + | Address | [address] | | | [place] [address] | + + + | Home Phone | | + + + | Preferred Language | Unknown | + + + | Marital Status | | + + + | Uatsdin Affiliation | 1041 | + + + | Race | Unknown | + + + | Ethnic Group | Unknown | + + + Author + + + | Author | [facility] (Historical as of | | | 03-07-19) | + + + | Organization | [facility] (Historical as of | | | 03-07-19) [...] + +------+ + | Care Contact Lens Molder Name | Role | Phone | + [...] | | | | | | | ([facility]), Mild airflow | | | | [...] | | | | | | | ([facility]), Chronic | | | | | | | | obstructive | | | | | | | | pulmonary disease, | | | | | | | | unspecified COPD | | | | | | | | type ([facility]) | | | | | | [...] + + | ILD (interstitial lung disease) ([facility]) | 11/19/2016 | + + + | [...] + + + + + | Bronchiectasis ([facility]) | 02/06/2015 | + + + + + | Last Assessment & Plan: Bronchiectasis, followed by | | Rewards ConsultantDr Maria. | + + + + + [...] she and Yuri sold their home in [place], | | she is busy doing yardwork and packing, most likely will be | | spending the winter in the [place] area. Tolerating | | medications. No changes [...] + + | Father | | | MD | | | | (Age | | [...] | | | | | | [place] [address] | | | | | | [phone] | | | | | | | [...] +------+-------+ + | MEDICARE | MEDICA | [id number] | | | [address] | | | RE | | | | [place], [place] [address] | | | IP-OP | | | | | + +--------+ +------+-------+ + | COMMERCIAL OTHER | COMMER | [id number] | | | | | | CIAL [...] Self | [birth year] | Home: | [address] | | | al/Fam | | 1940 | [phone] | [place] | | | zayda | | | [address] | [address] | + +--------+ +--------+ + +
--- OUTSIDE RECORDS SUMMARY | ~2019-06-13 | XMS | Encounter Summary ---
Demographics + + + | Address | [address] | | | [place] [address] | + + + | Home Phone [...] Providers + +------+ + | Care Manager Animal Name | Role | Phone | + +------+ + | Mike Saucedo MD | PCP | | + +------+ + Encounter Details +--------+ + + + + | Date | Type | Department | Care Team | Description | +--------+ + + + + | 05/21/ | Hospital | [facility] | Conversion | Diagnosis unknown | | 2016 | Encounter | CONVERSION [address] | Transaction, | | | | | [address] | Provider Unknown | | | | | [place], [place] | [phone] | | | | | [address] | | | | | | [phone] | | | +--------+ + + + [...] [place] | | | | | | [address] | | | | | | | | +--------+---------+ + + + | 11/04/ | Office | Pulmonology | Sukhjinder, | | | 2019 | Visit | | Windy Aldrich, | | | | | | MD [address] | | | | | | [place] | | | | | | [place] [address] | | | | | | [phone] | | | | | | | | +--------+---------+ + + + documented as of this encounter Procedures + +--------+ + + + | Procedure Name | Priori | Date/Time | Associated Diagnosis | Comments | | | ty | | | | + +--------+ + + + | CT CHEST W CONTRAST | Routin | 05/17/2014 | | Results for this | | | e | 7:23 PM | | procedure are in the | | | | PDT | | results section. | + +--------+ + + + documented in this encounter Results CT Chest w Contrast (05/17/2014 7:23 PM PDT) + + | Specimen | [...]
--- OUTSIDE RECORDS SUMMARY | ~2019-06-13 | XMS | Encounter Summary ---
Demographics + + + | Address | [address] | | | [place] [address] | + + + | Home Phone [...] | | + + +---------+ + | [place] Marcosgracie Red) | ECON | Unknown | | | Kalpesh | | | | + + +---------+ + Care Team Providers + +------+ + | Care Front Desk Lead Name | Role | Phone | [...] + + | 01/02/ | Office | [facility] | [place]enstein, | Obstructive chronic | | 2015 | Visit | PULMONARY [address] | Jenna Goerge MD | bronchitis ([facility]); | | | | [place], | | Bronchiectasis | | | | [place] [address] | | without complication | | | | [phone] | | ([facility]); | | | | | | Gastroesophageal [...] of Education: N/A 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 Social History Main Topics Smoking status: Former Smoker -- 0.70 packs/day for 40 years Types: Cigarettes Quit date: 05/06/2009 Smokeless tobacco: Never Used Alcohol Use: No Drug Use: No Sexual Activity: Not on file Other Topics Concern None Social History Narrative Lives: in [place] With: her Grew up: [place] Has previously lived in: [place] only Exposure to toxic chemicals: DDT on crops and in well water, near to [facility] Exposure to asbestos: no Exposure to tuberculosis: [...] made to ensure accuracy; however, inadvertent computerized fingerprint technician errors may be pre sent. documented in [...] [place] | | | | | | [id number] | | | | | | | | +--------+---------+ + + + | 11/04/ | Office | Pulmonology | Sukhjinder, | | | 2019 | Visit | | Windy Aldirch | | | | | | MD [address] | | | | | | [place] | | | | | | [place] [address] | | | | | | [phone] | | | | | | | [...]
--- OUTSIDE RECORDS SUMMARY | ~2019-06-13 | XMS | Encounter Summary ---
Demographics + + + | Address | [address] | | | [place] [address] | + + + | Home Phone [...] | | + + +---------+ + | Orlandogracie Red) | ECON | Unknown | | | Kalp[place] | | | | + + +---------+ + Care Team Providers + +------+ + | Care Personal Banking Representative Name | Role | Phone | + [...] + + | 05/06/ | Refill | [facility] | Sukhjinder, | Medication Refill | | 2019 | | PULMONOLOGY [address] | Windy Aldrich, | | | | | [address] | MD [address] | | | | | [place] | [place], | | | | | [address] | [place] [address] | | | | | [phone] | [phone] | | | | | | | [...] [place] | | | | | | [id number] | | | | | | | | +--------+---------+ + + + | 11/04/ | Office | Pulmonology | Sukhjinder, | | | 2019 | Visit | | Windy Aldrich, | | | | | | MD [address] | | | | | | [place], | | | | | | [place] [address] | | | | | | [phone] | | | | | | | | +--------+---------+ + + + documented as of this encounter Visit Diagnoses + + | Diagnosis | + + | Chronic obstructive pulmonary disease, unspecified COPD type (HCC) - Primary | + + documented in this encounter"
--- OUTSIDE RECORDS SUMMARY | ~2019-06-13 | XMS | Encounter Summary ---
Demographics + + + | Address | [address] | | | [place] [address] | + + + | Home Phone [...] | | + + +---------+ + | Broadfordgracie Red) | ECON | Unknown | | | Kalp[place] | | | | + + +---------+ + Care Team Providers + +------+ + | Care Cisco Administrator Name | Role | Phone | [...] | | | | | | [place] [address] | | | | | | [phone] | | | +--------+--------+ + + + [...] [place] | | | | | | [address] | | | | | | | | +--------+---------+ + + + | 11/04/ | Office | Pulmonology | Sukhjinder, | | | 2019 | Visit | | Windy Aldrich, | | | | | | [address] | | | | | | [place], | | | | | | [place] [address] | | | | | | [phone] | | | | | | | | +--------+---------+ + + + documented as of this encounter Visit Diagnoses Not on filedocumented in this encounter"
--- OUTSIDE RECORDS SUMMARY | ~2019-06-13 | XMS | Encounter Summary ---
Demographics + + + | Address | [address] | | | [place] [address] | + + + | Home Phone | | + + + | Preferred Language | Unknown | + + + | Marital Status | | + + + | Jainism Affiliation | 1041 | + + + | Race | Unknown | + + + | Ethnic Group | Unknown | + + + Author + + + | Author | [facility] | | | and [place] | + + + | Organization | [facility] | | | [...] Team Providers + +------+ + | Care Behavioral Health Associate Name | Role | Phone | + [...] | Physical | Diagnoses | [place], | [address] | | | Services | Therapy | Scoliosis | Jerald Suarez MD | [facility] | | | Required | | of | [address] | HOSPITAL | | | | | thoracolumba | [address] | [address] | | | | | r spine, | [place], | AVE | | | | | unspecified | [place] [address] | [place], [place] | | | | | scoliosis | Phone: | [address] | | | | | type Lumbar | [phone] | Phone: | | | | | | Fax: | [phone] | | | | | radiculopath | [phone] | Fax: | | | | | y Chronic | | [phone] | | | | | midline low | | | | | | | back pain | | | | | | | with | | | | | | | right-sided | | | | | | | sciatica | | | | | | | Procedures | | | | | | | HIM 10/11 | | | +--------+ + + + + + Encounter Details +--------+ + + + + | Date | Type | Department | Care Team | Description | +--------+ + + + + | 04/29/ | Orders Only | [facility] [place] | Jerald Montano, | Scoliosis of | | 2017 | | PHYSIATRY [address] | MD [address] | thoracolumbar spine, | | | | [place], | [place], [place] | unspecified | | | | [place] [address] | [address] | scoliosis type | | | | [phone] | | (Primary Dx); Lumbar | | | | | | radiculopathy; | | | | | | Chronic midline low | | | | | | back pain with | | | | | | right-sided sciatica | +--------+ + + + + Social [...] | 2018 | Visit | | [address] | | | | | | [place] | | | | | | [address] | | | | | | | | +--------+---------+ + + + | 11/04/ | Office | Pulmonology | Sukhjinder, | | | 2019 | Visit | | Windy Aldrich, | | | | | | [address] | | | | | | [place] | | | | | | [place] [address] | | | | | | [phone] | | | | | | | | +--------+---------+ + + + + + +--------+ + + | Name | Type | Priori | Associated Diagnoses | Order Schedule | | | | ty | | | + + +--------+ + + | Physical Therapy - | Outpatient | Routin | Scoliosis of | Ordered: 04/30/2017 | | Ambulatory Referral | Referral | e | thoracolumbar spine, | | | | | | unspecified | | | | | | scoliosis type | | | | | | Lumbar radiculopathy | | | | | | Chronic midline | | | | | | low back pain with | | | | | | right-sided sciatica | | + + +--------+ + + documented as of this encounter Visit Diagnoses + + | Diagnosis | + + | Scoliosis of thoracolumbar spine, unspecified scoliosis type - Primary | + + | Lumbar radiculopathy Thoracic or lumbosacral neuritis or radiculitis, unspecified | + + | Chronic midline low back pain with right-sided sciatica | + + documented in this encounter"
--- OUTSIDE RECORDS SUMMARY | ~2019-06-13 | XMS | Encounter Summary ---
Demographics + + + | Address | [address] | | | [place] [address] | + + + | Home Phone | | + + + | Preferred Language | Unknown | + + + | Marital Status | | + + + | Rastafari Affiliation | 1041 | + + + [...] Team Providers + +------+ + | Care Product Ambassador Name | Role | Phone | + +------+ + | Mike Saucedo MD | PCP | | + +------+ + Encounter Details +--------+ + + + + | Date | Type | Department | Care Team | Description | +--------+ + + + + | 07/12/ | Hospital | [facility] | Conversion | Pain | | 2018 | Encounter | CONVERSION [address] | Transaction, | | | | [address] | Provider Unknown | | | | | [facility] [place] | [phone] | | | | | [address] | | | | | | [phone] | | | +--------+ + + + [...] | | | | | [place] | | | | | | [address] | | | | | | | | +--------+---------+ + + + | 11/04/ | Office | Pulmonology | Sukhjinder, | | | 2020 | Visit | | Windy Aldrich, | | | | | | [address] | | | | | | [place], | | | | | | [place] [address] | | | | | | [phone] | | | | | | | [...]
--- OUTSIDE RECORDS SUMMARY | ~2019-06-13 | XMS | Encounter Summary ---
Demographics + + + | Address | [address] | | | [place] [address] | + + + | Home Phone | | + + + | Preferred Language | Unknown | + + + | Marital Status | | + + + | Hoahaoism Affiliation | CAT | + + + | Race | White | + + + | Ethnic Group | Not or | + + + Author + + + | Author | [facility] | + + + | Organization | [facility] | + + + | Address | Unknown | + + + | Phone | Unavailable | + + + Support + + + + + | Name | Relationship | Address | Phone | + + + + + | Jer Posey | ECON | [address] | | | | [place], [place] | | | | | [address] | | + + + + + Care Team Providers + +------+ + | Care Machine Ii Coremaker Name | Role | Phone | + [...] | | Preop | Steven Crisostomo, | [facility] [address] | | | | | examination | STEEL SASH ERECTOR-C,MPH | [address] | | | | | Procedures | [address] | Sara Samuels | | | | | | [address] | Mailcode: | | | | | TRANSTHORACI | Rd | [address] | | | | | C | [facility] [place] | [place] | | | | | ECHOCARDIOGR | [address] | Building | | | | | AM, ADULT | | [place], [place] | | | | | | | [address] | | | | | | | Phone: | | | | | | | [phone] | +--------+--------+ + + + + Reason [...] Visit | Medicine Clinic at | T, STEEL SASH ERECTOR-C,MPH | Diabetes mellitus | | | | CH 4th Floor [address] | | screening; Other | | | | [address] | | specified | | | | Mailcode: CH4S | | pre-operative | | | | [facility] | | examination | | | | and Healing, | | | | | | Building 1,4th Floor | | | | | | [place], [place] | | | | | | [address] | | | | | | [phone] | | | +--------+---------+ + + + [...] OR NON-STEROIDAL ANTI-INFLAMMATORY DRUGS (NSAIDs) Advil, Aleve, Ely-Sumas, Anacin, Arthopan, Ascriptin, Aspergum, Aspirin with and [...] ersantine, Phenylbutazone, Piroxicam, Relafen, Robomol, Rufen, Sine-aid, [place] s cold tablets, Sulindac, Talwin, Tolectin, Triaminicin, [...] perfume, lotions or powder. Remove any nail croatian from at least one fingernail. Do not [...] or walk. Surgery Check in Locations Admitting [facility] Surgery Check in Time: Someone from your [...] it is after office hours, call the [facility] live source operator at [phone] and ask them to page your doc [...] significant valve disease. Per transthoracic echocardiogram 04/26/2008 ([place], [place]): " Conclusion 1. Normal LV systolic [...] under ANESTHESIA PREOP EVALUATION. RADHA ANGELES, MPH [facility] PREOPER[facility]IC [address] [place] [address] randon, ENRIQUETA Connell,MPH - 05/16/2011 2:03 PM PDTSee Scanned H&P. H and P entered into [employer](Chart review, Media tab) Fitness for surgery contingent on results from transthoracic echocardiogram. Steven Taylor RN, RADHA, MPH [facility] CL[facility]IC [address] [facility] Mail Code: [address] [facility] [place] [address] oe Guzman MA [...] | + +--------+ + + + | MD COLLECTION VENOUS | Routin | 05/16/2011 | [...] | [facility] | [address] [facility] | [place] [address] | | | OF CARE TESTS | [...] | + + + + + | [facility] DEPARTMENT OF | [address] | [place] [address] | | | PATHOLOGY | [address] [...] | + + + + + | [facility] DEPARTMENT | [address] | [place] [address] | | | PATHOLOGY | [address] [...] | | | DEPARTMENT | | | [place] | | | OF | | | [...] | + + + + + | [facility] | [address] | [place] [address] | | | PATHOLOGY | [address] [...] | | | | | MISAEL ABREU ([id number]) | | | | | | on 05/16/2011 5:59:50 PM | | | | + + + + + + + + | Specimen | + + | | + + + + + | Narrative | Performed At | + + + | Please click | [facility] DEPT OF | | on view image for the detailed interpretation from [employer] results. | CARDIOLOGY | + + + + + + + + | Performing | Address | City/State/Zipcode | Phone Number | | Organization | | | | + + + + + | [place] DEPT OF | [address] | [place], [place] | | | CARDIOLOGY | [address] | [address] | | + + + + + [...]
--- OUTSIDE RECORDS SUMMARY | ~2019-06-13 | XMS | Encounter Summary ---
Demographics + + + | Address | [address] | | | [place] [address] | + + + | Home Phone | | + + + | Preferred Language | Unknown | + + + | Marital Status | | + + + | Baptist Affiliation | 1041 | + + + | Race | Unknown | + + + | Ethnic Group | Unknown | + + + Author + + + | Author | [facility] | | | and [place] | + + + | Organization | [facility] | | | [...] Team Providers + +------+ + | Care Physiotherapy Aide Name | Role | Phone | + +------+ + PCP | Unavailable | + +------+ + Encounter Details +--------+ + + + + | Date | Type | Department | Care Team | Description | +--------+ + + + + | 07/22/ | Hospital | [facility] | | | | 1998 - | Encounter | MED CTR CANCER | | | | | | CENTER [address] | | | | 07/08/ | | [place] | | | | 1998 | | [address] | | | | | | [phone] | | | +--------+ + + + [...] [place] | | | | | | [address] | | | | | | | | +--------+---------+ + + + | 11/04/ | Office | Pulmonology | Sukhjinder, | | | 2019 | Visit | | Windy Aldrich, | | | | | | [address] | | | | | | [place], | | | | | | [place] [address] | | | | | | [phone] | | | | | | | | +--------+---------+ + + + documented as of this encounter Visit Diagnoses Not on filedocumented in this encounter"
--- OUTSIDE RECORDS SUMMARY | ~2019-06-13 | XMS | Encounter Summary ---
Demographics + + + | Address | [address] | | | [place] [address] | + + + | Home Phone | | + + + | Preferred Language | Unknown | + + + | Marital Status | | + + + | Faith Affiliation | CAT | + + + | Race | White | + + + | Ethnic Group | Not or | + + + Author + + + | Author | [facility] | + + + | Organization | [facility] | + + + | Address | Unknown | + + + | Phone | Unavailable | + + + Support + + + + + | Name | Relationship | Address | Phone | + + + + + | Jer Posey | ECON | [address] | | | | | [place], [place] | | | | | [address] | | + + + + + Care Team Providers + +------+ + | Care Cruise Agent Name | Role | Phone | [...] + + + + | 07// | Home Health Care Worker | [facility] | Doug March, | | | 2010 | | [facility] [address] | [address] | | | | | [address] | [address] | | | | | Mailcode: Center | [place], [place] | | | | | for Health and | [address] | | | | | [place] [address] | [phone] | | | | | [place], [place] | | | | | | [address] | | | | | | [phone] | | | +--------+ + + + [...]
--- OUTSIDE RECORDS SUMMARY | ~2019-06-13 | XMS | Encounter Summary ---
Demographics + + + | Address | [address] | | | [place] [address] | + + + | Home Phone [...] Team Providers + +------+ + | Care Cert Occupational Therapy Asst Name | Role | Phone | + +------+ + | Mike Saucedo MD | PCP | | + +------+ + Encounter Details +--------+ + + + + | Date | Type | Department | Care Team | Description | +--------+ + + + + | 09/14/ | Orders Only | [facility] | Narayan Talbert | | | 2015 | | CARDIOLOGY [place] | MD [address] | | | | | [address] | [address] | | | | | [place], [place] | [place] [address] | | | | | [address] | [phone] | | | | | [phone] | | | +--------+ + + + [...] [place] | | | | | | [address] | | | | | | | | +--------+---------+ + + + | 11/04/ | Office | Pulmonology | Sukhjinder, | | | 2019 | Visit | | Windy Aldrich | | | | | | MD [address] | | | | | | [place], | | | | | | [place] [address] | | | | | | [phone] | | | | | | | [...]
--- OUTSIDE RECORDS SUMMARY | ~2019-06-13 | XMS | Encounter Summary ---
Demographics + + + | Address | [address] | | | [place] [address] | + + + | Home Phone | | + + + | Preferred Language | Unknown | + + + | Marital Status | | + + + | Congregational Affiliation | CAT | + + + | Race | White | + + + | Ethnic Group | Not or | + + + Author + + + | Author | [facility] | + + + | Organization | [facility] | + + + | Address | Unknown | + + + | Phone | Unavailable | + + + Support + + + + + | Name | Relationship | Address | Phone | + + + + + | Jer Posey | ECON | [address] | | | | | [place], [place] | | | | | [address] | | + + + + + Care Team Providers + +------+ + | Care Axminster Weaver Name | Role | Phone | [...] [place] | | | | | at [facility] | [facility] | | | | | [address] | [place] [address] | | | | | [facility] | | | | | | Mailcode: [address] [place] | | | | | | [facility] | | | | | | [facility], | | | | | | [place] [address] | | | | | | [phone] | | | +--------+ + + + [...] | | | | | MISAEL ABREU (1753) | | | | | | on 05/16/2011 5:59:50 PM | | | | + + + + + + + + | Specimen | + + | | + + + + + | Narrative | Performed At | + + + | Please click | [place] DEPT OF | | on view image for the detailed interpretation from [employer] results. | CARDIOLOGY | + + + + + + + + | Performing | Address | City/State/Zipcode | Phone Number | | Organization | | | | + + + + + | [facility] | [address] | [place], [place] | | | CARDIOLOGY | [address] | [address] | | + + + + + documented in this encounter Visit Diagnoses Not on filedocumented in this encounter
--- OUTSIDE RECORDS SUMMARY | ~2019-06-13 | XMS | Encounter Summary ---
Demographics + + + | Address | [address] | | | [place] [address] | + + + | Home Phone [...] | | + + +---------+ + | Fowlergracie Red) | ECON | Unknown | | | [place] | | | | + + +---------+ + Care Team Providers + +------+ + | Care Patient Service Technician Pst Name | Role | Phone | + [...] | | | | | | [place] [address] | | | | | | [phone] | | | +--------+--------+ + + + [...] | | | | | | [place] | | | | | | [address] | | | | | | | | +--------+---------+ + + + | 11/04/ | Office | Pulmonology | Sukhjinder, | | | 2019 | Visit | | Windy Aldrich, | | | | | | MD [address] | | | | | | [place], | | | | | | [place] [address] | | | | | | [phone] | | | | | | | | +--------+---------+ + + + documented as of this encounter Visit Diagnoses Not on filedocumented in this encounter"
--- OUTSIDE RECORDS SUMMARY | ~2019-06-13 | XMS | Encounter Summary ---
Demographics + + + | Address | [address] | | | [place] [address] | + + + | Home Phone [...] | | + + +---------+ + | Taverniergracie Red) | ECON | Unknown | | | Kalpesh | | | | + + +---------+ + Care Team Providers + +------+ + | Care Concierge Receptionist Name | Role | Phone | + +------+ + | Mike Saucedo MD | PCP | | + +------+ + Encounter Details +--------+ + + + + | Date | Type | Department | Care Team | Description | +--------+ + + + + | [facility]06/ Hospital | [facility] | Offenstein, | Cough | | 2013 | Encounter | MED CTR XRAY [address] | Jenna George MD | | | | | [address] | | | | | | [place] [address] | | | | | | [phone] | | | +--------+ + + + [...] [place] | | | | | | [address] | | | | | | | | +--------+---------+ + + + | 11/04/ | Office | Pulmonology | Sukhjinder, | | | 2019 | Visit | | Windy Aldrich, | | | | | | MD [address] | | | | | | [place] | | | | | | [place] [address] | | | | | | [phone] | | | | | | | [...] + | MISCELLANEOUS LAB | | | [phone] | + +---------+ + + | MISCELANIOUS LAB | | | [phone] | + +---------+ + + documented in this encounter Visit Diagnoses + + | Diagnosis | + + | Cough | + + documented in this encounter"
--- OUTSIDE RECORDS SUMMARY | ~2019-06-13 | XMS | Encounter Summary ---
Demographics + + + | Address | [address] | | | [place] [address] | + + + | Home Phone | | + + + | Preferred Language | Unknown | + + + | Marital Status | | + + + | Religion Affiliation | CAT | + + + | Race | White | + + + | Ethnic Group | Not or | + + + Author + + + | Author | [facility] | + + + | Organization | [facility] | + + + | Address | Unknown | + + + | Phone | Unavailable | + + + Support + + + + + | Name | Relationship | Address | Phone | + + + + + | Jer Posey | ECON | [address] | | | | [place], [place] | | | | | [address] | | + + + + + Care Team Providers + +------+ + | Care Janitorial Tech Name | Role | Phone | [...] Preop | Steven Crisostomo, | [facility] [address] | | | | | examination | CLINICAL TRIAL COORDINATOR-C,MPH | [address] | | | | | Procedures | [address] | Sara Samuels | | | | | | [address] | Mailcode: | | | | | TRANSTH[address]ACI | [address] | [address] | | | | | C | [place] | [address] | | | | | ECHOCARDIOGR | [address] | Building | | | | | AM, ADULT | | [place], [place] | | | | | | | [address] | | | | | | | Phone: | | | | | | | [phone] | +--------+--------+ + + + + Encounter [...] | | | | | | [place], | | | | | | [place] [address] | | | | | | [phone] | | | +--------+ + + + [...]
--- OUTSIDE RECORDS SUMMARY | ~2019-06-13 | XMS | Encounter Summary ---
Demographics + + + | Address | [address] | | | [place] [address] | + + + | Home Phone | | + + + | Preferred Language | Unknown | + + + | Marital Status | | + + + | Yarsanism Affiliation | 1041 | + + + | Race | Unknown | + + + | Ethnic Group | Unknown | + + + Author + + + | Author | [facility] | | | and [place] | + + + | Organization | [facility] | | | [...] Team Providers + +------+ + | Care Dog Boarder Name | Role | Phone | + [...] George MD | | | | | [address] [place], | | | | | | [place] [address] | | | | | | [phone] | | | +--------+ + + + [...] [place] | | | | | | [address] | | | | | | | | +--------+---------+ + + + | 11/04/ | Office | Pulmonology | Sukhjinder, | | | 2019 | Visit | | Windy Aldrich, | | | | | | MD [address] | | | | | | [place] | | | | | | [place] [address] | | | | | | [phone] | | | | | | | [...] mL/min/1.73m2 | [facility] | | | [place] | | | MEDICAL | | | [...] + | [facility] | [address] | [place], [place] | [phone] | | [facility] | | [address] | | | - LABORATORY | | | | + + + + + | [facility] | [address] | [place], [place] | | | [facility] | | [address] | | | - LABORATORY | | [...] + | [facility] | [address] | [place] | [phone] | | [facility] | | [address] | | | - LABORATORY | | | | + + + + + | [facility] | [address] | [place] | | | [facility] | | [address] | | | - LABORATORY | | | | + + + + + documented in this encounter Visit Diagnoses + + | Diagnosis | + + | Cough - Primary | + + documented in this encounter"
--- OUTSIDE RECORDS SUMMARY | ~2019-06-13 | XMS | Encounter Summary ---
Demographics + + + | Address | [address] | | | [place] [address] | + + + | Home Phone | | + + + | Preferred Language | Unknown | + + + | Marital Status | | + + + | Synagogue Affiliation | 1041 | + + + [...] | | + + +---------+ + | Columbusgracie Red) | ECON | Unknown | | | Kalpesh | | | | + + +---------+ + Care Team Providers + +------+ + | Care Stakes Player Name | Role | Phone | + [...] George MD | | | | | [place], | | | | | | [place] [address] | | | | | | [phone] | | | +--------+ + + + [...] [place] | | | | | | [address] | | | | | | | | +--------+---------+ + + + | 11/04/ | Office | Pulmonology | Sukhjinder, | | | 2019 | Visit | | Windy Aldrich, | | | | | | [address] | | | | | | [place], | | | | | | [place] [address] | | | | | | [phone] | | | | | | | | +--------+---------+ + + + documented as of this encounter Visit Diagnoses Not on filedocumented in this encounter"
--- OUTSIDE RECORDS SUMMARY | ~2019-06-13 | XMS | Encounter Summary ---
Demographics + + + | Address | [address] | | | [place] [address] | + + + | Home Phone [...] Team Providers + +------+ + | Care Bottle Washer Machine Name | Role | Phone | + +------+ + | Mike Saucedo MD | PCP | | + +------+ + Encounter Details +--------+---------+ + + + | Date | Type | Department | Care Team | Description | +--------+---------+ + + + | 05/25/ | E-Visit | [facility] | Offenstein, | RE: Non-Urgent | | 2013 | | PULMONARY [address] | Jenna George MD | Medical Question | | | | [place], | | | | | | [place] [address] | | | | | | [phone] | | | +--------+---------+ + + + [...] [place] | | | | | | [address] | | | | | | | | +--------+---------+ + + + | 11/04/ | Office | Pulmonology | Sukhjinder, | | | 2019 | Visit | | Windy Aldrich, | | | | | | MD [address] | | | | | | [place] | | | | | | [place] [address] | | | | | | [phone] | | | | | | | | +--------+---------+ + + + documented as of this encounter Results MOHINDER Tomosynthesis Diagnostic Right (06/04/2014 1:08 PM [facility]) + + | Specimen | + + [...] any changes. Dictated and Signed by: Ilan Ellison | | MD Km Electronically signed: 06/04/2014 [...] | | 05/17/2014. Prior filmscreen annual mammograms April April 2014.FINDINGS: | | Digital MLO and [...] + | MISCELLANEOUS LAB | | | [phone] | + +---------+ + + | MISCELANIOUS LAB | | | [phone] | + +---------+ + + documented in this encounter Visit Diagnoses + + | Diagnosis | + + | Abnormal finding on radiological examination of breast - Primary | + + documented in this encounter"
--- OUTSIDE RECORDS SUMMARY | ~2019-06-13 | XMS | Encounter Summary ---
Demographics + + + | Address | [address] | | | [place] [address] | + + + | Home Phone | | + + + | Preferred Language | Unknown | + + + | Marital Status | | + + + | Islam Affiliation | 1041 | + + + | Race | Unknown | + + + | Ethnic Group | Unknown | + + + Author + + + | Author | [facility] | | | and [place] | + + + | Organization | [facility] | | [...] Team Providers + +------+ + | Care Accountant Bookkeeper Name | Role | Phone | + [...] [address] | | | | | [place], [place] | [place] [address] | | | | | [address] | [phone] | | | | | [phone] | | | +--------+ + + + [...] | | | | | [place], [place] | | | | | | [address] | | | | | | | | +--------+---------+ + + + | 11/04/ | Office | Pulmonology | Sukhjinder, | | | 2019 | Visit | | Windy Aldrich, | | | | | | [address] | | | | | | [place], | | | | | | [place] [address] | | | | | | [phone] | | | | | | | [...] the prior | | | study. 7. Wigd-pf-xryclzpo tricuspid regurgitation is present. 8. | | [...] present, unchanged from the prior study. 7. Qqjq-vf-uotaphzt | | | tricuspid regurgitation is present. 8. There are no clinically | | | signficant changes in comparison with the previous echocardiographic | | | study, done 02/14/16. FINDINGS -------- ECG rhythm: Sinus rhythm. | | | Study: A 2-dimensional transthoracic echocardiogram with m-mode, | | | spectral and color flow Doppler was perfomed at [facility]. | | | Study: This was a [...] structurally normal. | | | Tricuspid Valve: Gehf-it-nxhcxcmf tricuspid regurgitation is present, | | | [...] 4.93 cm TAPSE: 2.16 cm AR Dec Long: 3.04 m/s2 AR | | | Dec [...] TR Vmax: 2.49 | | | m/s Superintendent Transportation: DBS Authenticated by: BIBI FLOR MD Report | | | Date/Time: -- [id number]:36 | | + + + + + [...] unchanged from | | the prior study.7. Bvvp-ye-awubdffa tricuspid regurgitation is present. 8. There are no | | clinically signficant changes in comparison with the previous echocardiographic study, | | done 02/14/16. FINDINGS--------ECG rhythm: Sinus rhythm.Study: A 2-dimensional | | transthoracic echocardiogram with m-mode, spectral and color flow Doppler was perfomed | | at [facility].Study: This was a technically adequate study.Left Ventricle: [...] valve appears structurally | | normal.Tricuspid Valve: Gkzz-zj-tepkqssy tricuspid regurgitation is present, slightly | | [...] (A-L): 41.14 ml/m2LAAs | | A2C: 22.84 [id number] A-L A2C: 76.05 mlLALs A2C: 5.82 cmLAAs A4C: 19.96 [id number] | | A-L A4C: 60.39 mlLALs A4C: 5.59 cmRAAs: 16.34 [id number] A-L: 45.95 mlRAESV MOD: | | 44.48 mlRALs: 4.93 cmTAPSE: 2.16 cmAR Dec Long: 3.04 m/s2AR Dec Time: 1263.37 | | msAR maxP.15 mmHgAR PHT: 366.37 msAR Vmax: 3.73 m/Ricci maxP.99 mmHgAV | | meanP.84 mmHgAV Vmax: 1.32 m/Ricci Vmean: 0.93 m/Ricci VTI: 26.81 cmAVA Vmax: | | 3.69 cm2AVA (VTI): 3.94 mb2CQPC Vmax: 0.00 cm2/m2AVAI (VTI): 0.00 cm2/m2LVOT | [...] | mmHgTR maxP.89 mmHgTR Vmax: 2.49 m/s Superintendent Transportation: Litzyted by: BIBI | | Eduardo FLOR Date/Time: -- [id number]:04:36 IMPRESSION: 1. Overall left | | ventricular [...] | present, unchanged from the prior study.7. Zusw-nu-adxfzgbu tricuspid regurgitation is | | present. 8. [...] | |TAPSE: 2.16 cm | |AR Dec Long: 3.04 m/s2 | |AR Dec Time: 1263.37 [...] |TR Vmax: 2.49 m/s | | | |Superintendent Transportation: DBS | |Authenticated by: BIBI FLOR MD | |Report Date/Time: -- [id number]:04:36 | | | |IMPRESSION: | |1. Overall [...] unchanged from the prior study. | |7. Ohhw-cq-nivuniip tricuspid regurgitation is present. 8. There are no clinically signfica nt changes in comparison with the previous echocardiographic study, done 02/14/16. | + + documented in this encounter Visit Diagnoses Not on filedocumented in this encounter"
--- OUTSIDE RECORDS SUMMARY | ~2019-06-13 | XMS | Encounter Summary ---
Demographics + + + | Address | [address] | | | [place] [address] | + + + | Home Phone | | + + + | Preferred Language | Unknown | + + + | Marital Status | | + + + | Zoroastrian Affiliation | CAT | + + + | Race | White | + + + | Ethnic Group | Not or | + + + Author + + + | Author | [facility] | + + + | Organization | [facility] | + + + | Address | Unknown | + + + | Phone | Unavailable | + + + Support + + + + + | Name | Relationship | Address | Phone | + + + + + | Jer Posey | ECON | [address] | | | | [place], [place] | | | | | [address] | | + + + + + Care Team Providers + +------+ + | Care Typists Supervisor Name | Role | Phone | [...] | | | | | Stay [address] | | | | | | [address] | | | | | | Mailcode: UHN65 | | | | | | Harish Osman | | | | | | [address] [place], [place] | | | | | | [address] | | | | | | [phone] | | | +--------+ + + + [...]
--- OUTSIDE RECORDS SUMMARY | ~2019-06-13 | XMS | Encounter Summary ---
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
--- OUTSIDE RECORDS SUMMARY | ~2019-06-13 | XMS | Encounter Summary ---
Demographics + + + | Address | [address] | | | [place] [address] | + + + | Home Phone | | + + + | Preferred Language | Unknown | + + + | Marital Status | | + + + | Hoahaoism Affiliation | 1041 | + + + [...] Team Providers + +------+ + | Care Honey Liquefier Name | Role | Phone | + [...] | | | | | follow-up | [address] | [address] | | | | | exam | Phone: | Phone: | | | | | | [phone] | [phone] | | | | | | Fax: | Fax: | | | | | | [phone] | [phone] | +--------+ + + + + + [...] (Primary Dx); | | | | [address] [facility] | [facility] [facility] | S/P orthopedic | | | | [place] | [place] [address] | surgery, follow-up | | | | [address] | [phone] | exam | | | | [phone] | | | +--------+ + + + [...] [place] | | | | | | [address] | | | | | | | | +--------+---------+ + + + | 11/04/ | Office | Pulmonology | Sukhjinder, | | | 2019 | Visit | | Windy Aldrich, | | | | | | MD [address] | | | | | | [place], | | | | | | [place] [address] | | | | | | [phone] | | | | | | | [...]
--- OUTSIDE RECORDS SUMMARY | ~2019-06-13 | XMS | Encounter Summary ---
Demographics + + + | Address | [address] | | | [place] [address] | + + + | Home Phone | | + + + | Preferred Language | Unknown | + + + | Marital Status | | + + + | Tenriism Affiliation | CAT | + + + [...] [place], [place] | | | | | [address] | | + + + + + Care Team Providers + +------+ + | Care Brooch Maker Novelty Name | Role | Phone | + +------+ + | Mike Saucedo MD | PCP | | + +------+ + Encounter Details +--------+ + + + + | Date | Type | Department | Care Team | Description | +--------+ + + + + | 10/28/ | Telephone | [facility]ive [facility] | Doug March, | | | 2011 | | [place] [facility] [address] | [address] | | | | | [address] | [facility] | | | | | Mailcode: Center | [place], [place] | | | | | Health and | [address] | | | | | [place] [address] | [phone] | | | | | [place], [place] | | | | | | [address] | | | | | | [phone] | | | +--------+ + + + [...]
--- OUTSIDE RECORDS SUMMARY | ~2019-06-13 | XMS | Encounter Summary ---
Demographics + + + | Address | [address] | | | [place] [address] | + + + | Home Phone | | + + + | Preferred Language | Unknown | + + + | Marital Status | | + + + | Mosque Affiliation | CAT | + + + | Race | White | + + + | Ethnic Group | Not or | + + + Author + + + | Author | [facility] | + + + | Organization | [facility] | + + + | Address | Unknown | + + + | Phone | Unavailable | + + + Support + + + + + | Name | Relationship | Address | Phone | + + + + + | Jer Posey | ECON | [address] | | | | [place], [place] | | | | | [address] | | + + + + + Care Team Providers + +------+ + | Care Blog Writer Name | Role | Phone | + +------+ + | Mike Saucedo MD | PCP | | + +------+ + Reason for Visit + + + | Reason | Comments | + + + | Pre-op evaluation | | + + + AUTH/CERT (Routine) [...] + + | 10/23/ | Office | Preoperative | Talita Clark, | Hernia, hiatal | | 2011 | Visit | [facility] Clinic at | ANP [address] | (Primary Dx); Other | | | | [facility] 4th Floor [address] | specified | | | | [address] | [facility] [place] | pre-operative | | | | Mailcode: CH4S | [phone] | examination; Aortic | | | | [place] for [facility] | [phone] | insufficiency; GERD | | | | and Healing, | | (gastroesophageal | | | | Building 1,4th Floor | | reflux disease) | | | | [place], [place] | | | | | | [address] | | | | | | [phone] | | | +--------+---------+ + + + Anesthesia Record + + [...] | | | 0 | | reviewed, PARSyd held, anesthetic plan made or approved by [...] | Timeout | Nerve stimulator moved to L. Ulnar | | | 1 | | [...] | Meds | +------+ + + + No medications | on file. | + + + + + | No agents on file. | + + + + | No [...] by | | D - | No; Alarcon; 16FR | Sapphire Toney RN | Sapphire Toney RN | | Inocenciar | | | | | y Cath [...] + + + | RETIRE | 10/26/11; 1125; 10/28/11; 1846; | 10/26/11 112 by | 10/28/11 184 by | | D - | No; 16; Left; Forearm | Amari Gresham, | Discontinued After | | Periph | | MANAGER TELEMETRY | Discharge | | eral | | [...] + + + | Blood Pressure | 155/65 | 10/24/2011 2:36 PM | | | | | PDT | | + + + + + | Pulse | 69 | 10/24/2011 2:36 PM | | | | | PDT | | + + + + + | Temperature | 36.4 C (97.5 F) | 10/24/2011 2:36 PM | | | | | PDT | | + + + + + | Respiratory Rate | 16 | 10/24/2011 2:36 PM | | | | | PDT | | + + + + + | Oxygen Saturation | 99% | 10/24/2011 2:36 PM | | | | | PDT | | + + + + + | Inhaled Oxygen | - | - | | | Concentration | | | | + + + + + | Weight | 66.3 kg (146 lb 3.2 | 10/24/2011 2:36 PM | | | | oz) | PDT | | + + + + + | Height | 165.1 cm (5' 5") | 10/24/2011 2:36 PM | neck 34.5 cm | | | | PDT | | + + + + + | Body Mass Index | 24.33 | 10/24/2011 2:36 PM | | | | | PDT | | + + + + + documented in this encounter Patient Instructions Patient Instructions Talita Cortes - 10/24/2011 2:48 PM PDT PREOPERATIVE INSTRUCTIONS Do not eat or drink anything after midnight the night before surgery. Current Medication List 10/24/11 2:41 PM Name Sig OMEPRAZOLE MAGNESIUM 20 MG TAB, DELAYED RELEASE Take 20 mg by mouth once daily. TETRACYCLINE ORAL Take by mouth once daily. On the morning of your procedure TAKE ONLY your morning dose of OMEPRAZOLE with a sip of wa ter. Do not take any Aspirin, vitamin E or non-steroidal anti-inflammatory (NSAIDs i.e. Advil , Aleve, Ibuprofen) or herbal supplements seven days prior to your surgery. These drugs may interfere with normal blood clotting and may cause excessive bleeding and bruising during or after the surgery. If you are taking Coumadin (warfarin), Plavix or any other blood thinners please let you r surgical team know as medication changes will be necessary. If you need a pain medication for general purposes, use Tylenol as directed. If you are in doubt about any medications that you are taking, please contact our office . Important Guidelines Do not shave the surgical area Do not smoke, drink alcohol or use recreational drugs for 24 hours before your surgery Do not eat any hard candy or chew gum after midnight the night before your surgery. Watch for any change in your health condition. Let your surgeon know right away if you do not feel well. Do not wear makeup, perfume, lotions or powder. Remove any nail pashto from at least one fingernail. Do not [...] to be used in the genital area. If this is the first time using Hibiclens, please perform an allergy test by placing 1-2 dr ops of soap on your forearm. Observe this area for 4-5 minutes. If you develop a rash, jen jose DO NOT use this product. Please inform the preop team on the morning of surgery so that th is product is NOT used during your surgery. *See Hibiclens label for full product information [...] body with warm water from neck down. Then use Hibiclens as you would any other liquid soap. Please do not put the Hibiclens on a wash cloth, apply directly to the skin and wash gently. Apply the minimum amount of Hibicl ens necessary to cover the skin. Leave the Hibiclens on your skin for 1 minute, then rinse o ff. Rinse thoroughly with warm water. Towel dry with a clean towel. Dress in clean sleepwear and sleep on freshly laundered sheets. When using Hibiclens for a second day in a row (morning of surgery, as soon as you wake up) : Shower/bathe again using Hibiclens in the same method as described above and wear freshly l aundered clothes. Do not apply any lotions, deodorants, powders or perfumes to the body areas that have been cleaned with Hibiclens. Preventing post op complications Use an incentive [...] sit, stand or walk. Surgery Check in Time: Someone from your surgeon's office or [facility] will provide you with information regarding your check in time. If you have any questions about this, pl ease contact your surgeon's office. Going Home Your [...] note the following: You will not be able to drive. You will be required to have a competent adult d rive you or accompany you by taxi or public transportation on the day of discharge. It is al so required that you have a competent adult assist you and look after you on the first night after you have undergone regional blocks, deep sedation, and/or general anesthesia. If you stayed in the hospital after surgery, please arrange for your ride to come for yo u around 9AM on the day your doctor says you can go home. Check out time is 11AM. If you have questions or concerns after you go home, call your doctor s office. If it is after office hours, call the [facility] log processor operator at [phone] and ask them to page your doc tor. documented in this encounter Progress Notes Sandy Mejía - 10/24/2011 3:17 PM PDT Venipuncture performed in clinic, blood sample obtained from Left antecubital site Hemoglob in A1C POCT performed during clinic visit. Blood sample obtained from venipuncture performed to obtain other lab tests. randt Talita Tavarez - 10/23 3:10 PM PDT PREOPERATIVE CONSULT NOTE Consulting Provider: CEASAR HOBBS Referring Physician: Dr March Primary Care Provider: Mike Saucedo MD Reason for Consult: Preoperative evaluation and risk assessment Proposed Procedure/Date: laparoscopic paraesophageal hernia repair HISTORY OF PRESENT ILLNESS: Shireen Posey is a 71 y.o. female here for preoperative ev aluation for above procedure. Her medical history is significant for symptoms of regurgitati on and chest discomfort after eating, never with activity. Her symptoms have improved with d iet modification although she still does have occasional chest discomfort postpradially. UGI showed a large hiatal hernia, endoscopy with large hiatal hernia. PMh of aortic insufficien cy on TTE of April 2011. No history of CAD/CHF/CKD/IDDM/CVD. Current Medication List 10/24/11 2:41 PM Name Sig OMEPRAZOLE MAGNESIUM 20 MG TAB, DELAYED RELEASE Take 20 mg by mouth once daily. TETRACYCLINE ORAL Take by mouth once daily. No Known Allergies Past Medical History Diagnosis Date Aortic insufficiency Hernia, hiatal Breast cancer Past Surgical History Procedure Date Bronchoscopy 1992 Appendectomy 1960 Right breast lumpectomy for cancer 1997 Right knee arthroscopy Saphenous vein ligation 2011 Family History SOCIAL Hx History Social History Marital Status: Spouse Name: N/A Number of Children: N/A Years of Education: N/A Occupational History Not on file. Social History Main Topics Smoking status: Former Smoker -- 0.5 packs/day for 45 years Types: Cigarettes Quit date: 10/23/2005 Smokeless tobacco: Not on file Alcohol Use: Not on file Drug Use: Not on file Sexually Active: Not on file Other Topics Concern Not on file Social History Narrative No narrative on file Last Vitals: BP 155/65 | Pulse 69 | Temp (Src) 36.4 C (97.5 F) (Oral) | RR 16 | Ht 165. 1 cm (5' 5") | Wt 66.316 kg (146 lb 3.2 oz) | SpO2 99% | BMI 24.33 kg/(m^2) Body mass index is 24.33 kg/(m^2). ROS Pulmonary: Within Defined Limits except as noted below no cough no shortness of breath no wheezing Pt. Has no asthma Cardiovascular: Within Defined Limits except as noted below Functional Capacity: Moderate - chest pressure and syncope no CAD no CHF no hypertension valvular problems/murmurs AI no pacemaker GI/Hepatic: Within Defined Limits except as noted below no GI Bleed no GERD No liver disease no hepatitis : Within Defined Limits except as noted below Endo: Within Defined Limits except as noted below Neurological: no seizures no HX CORTICOSTEROID no psychiatric problem no dementia Current pain level: 0 MS: Within Defined Limits except as noted below no arthritis AI Heme/Onc: Within Defined Limits except as noted below Pt. has: no active bleeding no Bleeding diathesis / thrombotic bleeding Malignancy: cancer, Location: Breast, Metastasis: Skin: Within Defined Limits except as noted below No open wounds or sores No hx MRSA/VRE/Active skin infection Physical Exam General: Patients general appearance: Alert, No distress, Cooperative and Age appropriate Head & Neck/Airway: NC/AT; PERRL; EOMI; nl appearing ears and nose. Neck ROM: full Dentition: Dentures-upper no Moore Mallampati: III Mouth Opening: > = 3 cm C-Spine: normal Neck Anatomy: Normal Jaw Protrusion: Normal, lower incisors can protrude past upper incisors Lung Exam: No respiratory distress. Normal breathing pattern. breath sounds normal Cardiac: No murmurs, gallops or rubs. Rhythm: regular Rate: normal Abdominal: General Findings: no abdominal tenderness and Nondistended Bowel Sounds: bowel sounds are normal Musculoskeletal: Findings: tone normal Neuro/Psych: No focal neuro deficits; Alert and appropriate; nl affect. alert Findings: Cranial nerves 2-12 intact, Motor 5/5 strength globally with normal tone, Soft & sharp sensation normal, No tremor, Alert, oriented to person, place, time and Normal affect Integument: No open rashes or lesions noted. - lesion, rash and open wounds Color: pink Texture: Skin texture - normal Turgor: turgor normal Implants: None, LAB DATA REVIEWED/ORDERED Lab Results Component Value Date WBC 8.4 05/16/2011 HB 12.9 05/16/2011 HCT 37.4 05/16/2011 PLT 283 05/16/2011 MCV 91.4 05/16/2011 RDW 13.5 05/16/2011 Lab Results Component Value Date NA 141 05/16/2011 K 3.3 05/16/2011 CL 106 05/16/2011 BICARB 30 05/16/2011 BUN 7 05/16/2011 CR 0.62 05/16/2011 GLU 68 05/16/2011 CA 9.2 05/16/2011 AST 18 05/16/2011 ALT 15 05/16/2011 AP 73 05/16/2011 TBILI 0.6 05/16/2011 TP 7.0 05/16/2011 ALB 3.9 05/16/2011 Lab Results Component Value Date ABO B 05/16/2011 RH Positive 05/16/2011 Lab Results Component Value Date A1C 5.3 05/16/2011 EKG: Personally reviewed, NSR with no Q waves MEDICAL DECISION MAKIN ACC/ AHA Perioperative Guidelines 1. Need for emergency noncardiac surgery? b. No -> Proceed to next step. 2. Active Cardiac Conditions? These conditions mandate further investigation and manageme nt. A. Acute CO within 7 days: no B. Unstable angina/Recent CO (7- 30 days): no C. Decompensated CHF: no D. Significant arrhythmia: None E. Severe valvular disease: NONE 3. Low risk surgery? b. No -> proceed with next step. 4. Good functional capacity? (>4 METS)a. Yes -> proceed with surgery. 5. Assess Clinical Risk Factors? A. Ischemic heart disease: no B. Compensated / prior heart failure: no C. Diabetes mellitus (treated with insulin): no D. Renal insufficiency (Cr > 2): no E. Cerebrovascular disease: no Rate of cardiac , non fatal CO, non fatal cardiac arrest 0 risk factors - 0.4% 1 risk factors - 1%, 2 risk factors - 7%, 3 or >risk factors - 11% (may benefit from perioperative beta blockers) Risk Factor Recommendations: 0 risk factors- proceed with surgery 1- 2 risk factors- proceed with planned surgery with HR control or consider noninvasive jeferson ting if it will exchange underwriting consultant. 3 or more risk factors AND high risk surgery- consider testing if it will exchange underwriting consultant . MET ASSESSMENT: 3. METS--walking slowly on a flat surface for 1-2 blocks; vacuuming, sw eeping the floors, carrying groceries. ASSESSMENT and RECOMMENDATIONS: Surgical/anesthesia risk assessment: Shireen Posey is a 71 y.o. female with diagnos is of paraesophageal hernia, scheduled for laparoscopic repair. According to ACC/AHA, this patient has 0 clinical risk factors and the recommendation is to proceed. Medication management recommendations: The patient was advised to continue all usual med ications except as noted in Patient Instructions (After Visit Summary given to pt) Perioperative antibiotic prophylaxis: Standard (Consider IV Vanco one hr before procedu re in pts with Cephalosporin/PCN allergy and/or with hx of MRSA) This patient is medically stable for surgery. Further testing/optimization is not needed. Thank you for the opportunity to contribute to this patient's care. CEASAR HOBBS [facility] [address] [facility] [address] documented in this e ncounter Plan of Treatment Not on filedocumented as of this encounter Procedures + +--------+ + + + | Procedure Name | Priori | Date/Time | Associated Diagnosis | Comments | | | ty | | | | + +--------+ + + + | PROCEDURE NOTE | Routin | 08/26/2015 | | Results for this | | | e | 2:59 AM | | procedure are in the | | | | PST | | results section. | + +--------+ + + + | [place] COLLECTION VENOUS | Routin | 10/24/2011 | Other specified | | | BLOOD,VENIPUNCTURE | e | 3:17 PM | pre-operative | | | | [...] + | COMPLETE METABOLIC | Routin | 10/24/2011 | | Results for this | | SET | e | 2:23 PM | | procedure are in the | | (NA,K,CL,CO2,BUN,CRE | | PDT | | results section. | | AT,GLUC,CA,AST,ALT,B | | | | | | PEGGY TOTAL,ALK | | | | | | PHOS,ALB,PROT TOTAL) | | | | | + +--------+ + + + | CBC ONLY | Routin | 10/24/2011 | | Results for this | | | e | 2:23 PM | | procedure are in the | | | | PDT | | results section. | + +--------+ + + + | TYPE AND SCREEN | Routin | 10/24/2011 | | Results for this | | | e | 2:23 PM | | procedure are in the | | | | PDT | | results section. | + +--------+ + + + | HEMOGLOBIN A1C, POC | Routin | 10/24/2011 | Other specified | Results for this | | | e | 2:15 PM | pre-operative | procedure are in the | | | | PDT | examination | results section. | + +--------+ + + + documented in this encounter Results PROCEDURE NOTE (08/26/2015 2:59 AM PST) + + | Transcriptions | + + | Other, Faculty - 10/25/2011 10:48 AM PDT | + + 12 LEAD ECG (10/24/2011 2:46 PM PDT) [...] | | | | | MISAEL ABREU ([id number]) | | | | | | on 10/25/2011 9:04:54 AM | | | | + + + + + + + + | Specimen | + + | | + + + + + | Narrative | Performed At | + + + | Please click | [facility] | | on view image for the detailed interpretation from [employer] results. | CARDIOLOGY | + + + + + + + + | Performing | Address | City/State/Zipcode | Phone Number | | Organization | | | | + + + + + | [facility] | [address] | [place], [place] | | | CARDIOLOGY | [address] | [address] | | + + + + + [...] | | | DEPARTMENT | | | [place] | | | OF | | | [...] + + + + | [facility] | [address] | [place] [address] | | | PATHOLOGY | [address] [...] + | [facility] | [address] | [place] [address] | | | PATHOLOGY | [address] | | | + + + + + TYPE AND SCREEN (10/24/2011 2:23 PM PDT) [...] DEPARTMENT OF | [address] | [place] [address] | | | PATHOLOGY | [address] | | | + + + + + HEMOGLOBIN A1C, POC (10/24/2011 2:15 PM PDT) + +-------+ + + + | Component | Value | Ref Range | Performed | Pathologist | | | | | At | Signature | + +-------+ + + + | HEMOGLOBIN | 5.4 | 4.0 - 5.7 % | [facility], | | | A1C,POC | | | [...] | [facility], POINT | [address] | [place] [address] | | | OF CARE TESTS | | | | + + + + + documented in this encounter Visit Diagnoses + + | Diagnosis | + + | Hernia, hiatal - Primary Diaphragmatic hernia without mention of obstruction or | | gangrene | + + | Other specified pre-operative examination | + + | Aortic insufficiency Aortic valve disorders | + + | GERD (gastroesophageal reflux disease) Esophageal reflux | + + documented in this encounter
--- OUTSIDE RECORDS SUMMARY | ~2019-06-13 | XMS | Encounter Summary ---
Demographics + + + | Address | [address] | | | [place] [address] | + + + | Home Phone | | + + + | Preferred Language | Unknown | + + + | Marital Status | | + + + | Scientologist Affiliation | 1041 | + + + | Race | Unknown | + + + | Ethnic Group | Unknown | + + + Author + + + | Author | [facility] | | | and [place] | + + + | Organization | [facility] | | | [...] Team Providers + +------+ + | Care Speech Clinician Name | Role | Phone | + [...] [address] | | | | | [address] | [place], | | | | | [phone] | [place] [address] | | | | | | [phone] | | | | | | | [...] [place] | | | | | | [address] | | | | | | | | +--------+---------+ + + + | 11/04/ | Office | Pulmonology | Sukhjinder, | | | 2020 | Visit | | Windy Aldrich, | | | | | | [address] | | | | | | [place], | | | | | | [place] [address] | | | | | | [phone] | | | | | | | [...]
--- OUTSIDE RECORDS SUMMARY | ~2019-06-13 | XMS | Encounter Summary ---
Demographics + + + | Address | [address] | | | [place] [address] | + + + | Home Phone | | + + + | Preferred Language | Unknown | + + + | Marital Status | | + + + | Congregation Affiliation | 1041 | + + + | Race | Unknown | + + + | Ethnic Group | Unknown | + + + Author + + + | Author | [facility] | | | and [place] | + + + | Organization | [facility] | | | [...] Team Providers + +------+ + | Care Research Assistant Member Name | Role | Phone | + [...] PHYSIATRY [address] | MD [address] | | | | | [place], | [place], [place] | | | | | [place] [address] | [address] | | | | | [phone] | | | +--------+ + + + [...] | | | | | [place], [place] | | | | | | [address] | | | | | | | | +--------+---------+ + + + | 11/04/ | Office | Pulmonology | Sukhjinder, | | | 2019 | Visit | | Windy Aldrich, | | | | | | MD [address] | | | | | | [place], | | | | | | [place] [address] | | | | | | [phone] | | | | | | | | +--------+---------+ + + + documented as of this encounter Visit Diagnoses Not on filedocumented in this encounter"
--- OUTSIDE RECORDS SUMMARY | ~2019-06-13 | XMS | Encounter Summary ---
Demographics + + + | Address | [address] | | | [place] [address] | + + + | Home Phone [...] Providers + +------+ + | Care Manager Delivery Name | Role | Phone | + [...] | foot | [address] | | | | n | Weakness of | [address] | [place], | | | | | both legs | [place], | [place] [address] | | | | | Chronic | [place] [address] | Phone: | | | | | midline low | Phone: | [phone] | | | | | back pain | [phone] | Fax: | | | | | with | Fax: | [phone] | | | | | bilateral | [phone] | | | | | | sciatica [...] | | | | [address] | [place] [address] | | | | | | [place], | Phone: | | | | | | [place] [address] | [phone] | | | | | | Phone: | Fax: | | | | | | [phone] | [phone] | | | | | | Fax: | | | | | | | [phone] | | +--------+--------+ + + + + Encounter Details +--------+---------+ + + + | Date | Type | Department | Care Team | Description | +--------+---------+ + + + | 07/12/ | Office | [facility] | Jerald Montano, | Numbness of foot | | 2015 | Visit | PHYSIATRY [address] | MD [address] | (Primary Dx); | | | | [place], | [place], [place] | Weakness of both | | | | [place] [address] | [address] | legs; Chronic | | | | [phone] | | midline low back | | [...] - 07/12/2016 10:41 AM [facility] [...] MD - 07/12/2016 11:07 AM PST [facility] PHYSIATRY [address] [facility] [address] OFFICE NOTE JERALD MONTANO JR, MD Patient: SHIREEN MARTINEZ Admitting: MR #: [id number] LOC: PT TYPE: Adm Date: 07/12/2016 : [...] She does sometimes feel symptoms from the nc dline low back radiating into the lower [...] today with Ms. Martinez, [facility] formulating and discussing her medical treatment plan. Thank you for allowing me to be involved in the care of your patient. If you have any ques tions regarding the care of Ms. Martinez, please do not hesitate to call. JERALD MONTANO JR, MD Dictated by JERALD MONTANO JR, MD 07/12/2016 11:07:21 Transcribed on 07/12/2016 12:19:08 by job# [id number] Confirmation #: [id number] cc: ALEXANDRE TAYLOR MD [facility], Jerald Suarez MD - 07/12/2016 11:07 AM PSTThis office note has been dictated. Report Confirmation# [id number] documented in this encounter Plan of Treatment +--------+---------+ + + + | Date | Type | Specialty | Care Team | Description | +--------+---------+ + + + | 07/08/ | Office | Cardiology | Nannette Morrison, | | | 2018 | Visit | | MD [address] | | | | | | [place], [place] | | | | | | [address] | | | | | | | | +--------+---------+ + + + | 11/04/ | Office | Pulmonology | Sukhjinder, | | | 2019 | Visit | | Windy Aldrich, | | | | | | MD [address] | | | | | | [place], | | | | | | [place] [address] | | | | | | [phone] | | | | | | | [...]
--- OUTSIDE RECORDS SUMMARY | ~2019-06-13 | XMS | Encounter Summary ---
Demographics + + + | Address | [address] | | | [place] [address] | + + + | Home Phone | | + + + | Preferred Language | Unknown | + + + | Marital Status | | + + + | Mormonism Affiliation | CAT | + + + [...] [place], [place] | | | | | [address] | | + + + + + Care Team Providers + +------+ + | Care Cylinder Loader Name | Role | Phone | + +------+ + | Mike Saucedo MD | PCP | | + +------+ + Encounter Details +--------+--------+ + + + | Date | Type | Department | Care Team | Description | +--------+--------+ + + + | 10/27/ | Refill | Digestive Health | Maksim Martinez, | | | 2011 | | [place] [facility] [address] | [address] | | | | | [address] | [address] | | | | | Mailcode: [place] | [place], [place] | | | | | [facility] and | [address] | | | | | [facility] [address] | [phone] | | | | | [place], [place] | | | | | | [address] | | | | | | [phone] | | | +--------+--------+ + + + [...]
--- OUTSIDE RECORDS SUMMARY | ~2019-06-13 | XMS | Encounter Summary ---
Demographics + + + | Address | [address] | | | [place] [address] | + + + | Home Phone [...] + + + | Author | [facility] | + + + | Organization | [facility] | + + + | Address | Unknown | + + + | Phone | Unavailable | + + + Support + + + + + | Name | Relationship | Address | Phone | + + + + + | Jer Posey | ECON | [address] | | | | | [place], [place] | | | | | [address] | | + + + + + Care Team Providers + +------+ + | Care Pastrycook'S Assistant Name | Role | Phone | + +------+ + | Mike Saucedo MD | PCP | | + +------+ + Encounter Details +--------+ + + + + | Date | Type | Department | Care Team | Description | +--------+ + + + + | 10/28/ | Telephone | [facility] | Doug March, | | | 2011 | | [place] at [facility] [address] | [address] | | | | | [address] | [facility] | | | | | Mailcode: Center | [place], [place] | | | | | [facility] and | [address] | | | | | [place] [address] | [phone] | | | | | [place], [place] | | | | | | [address] | | | | | | [phone] | | | +--------+ + + + [...]
--- OUTSIDE RECORDS SUMMARY | ~2019-06-13 | XMS | Encounter Summary ---
Demographics + + + | Address | [address] | | | [place] [address] | + + + | Home Phone | | + + + | Preferred Language | Unknown | + + + | Marital Status | | + + + | Mu-Ism Affiliation | 1041 | + + + | Race | Unknown | + + + | Ethnic Group | Unknown | + + + Author + + + | Author | [facility] | | | and [place] | + + + | Organization | [facility] | | | [...] Team Providers + +------+ + | Care Stamp Mounter Name | Role | Phone | + +------+ + | Mike Saucedo MD | PCP | | + +------+ + Encounter Details +--------+ + + + + | Date | Type | Department | Care Team | Description | +--------+ + + + + | 06/04/ | Hospital | [facility] | [place], | Abnormal finding on | | 2013 | Encounter | MED CTR MAMMOGRAPHY | Jenna George MD | radiological | | | | [address] | | examination of | | | | [place] | | breast | | | | [address] | | | | | | [phone] | | | +--------+ + + + [...] [place] | | | | | | [id number] | | | | | | | | +--------+---------+ + + + | 11/04/ | Office | Pulmonology | Sukhjinder, | | | 2019 | Visit | | Windy Aldrich, | | | | | | MD [address] | | | | | | [place] | | | | | | [place] [address] | | | | | | [phone] | | | | | | | [...] + + | Performing | Address | City/[facility] | Phone Number | | Organization | | | | + +---------+ + + | MISCELLANEOUS LAB | | | [phone] | + +---------+ + + | MISCELANIOUS LAB | | | [phone] | + +---------+ + + documented in this encounter Visit Diagnoses + + | Diagnosis | + + | Abnormal finding on radiological examination of breast | + + documented in this encounter"
--- OUTSIDE RECORDS SUMMARY | ~2019-06-13 | XMS | Encounter Summary ---
Demographics + + + | Address | [address] | | | [place] [address] | + + + | Home Phone [...] Providers + +------+ + | Care Assistant Pressman Name | Role | Phone | + +------+ + | Mike Saucedo MD | PCP | | + +------+ + Encounter Details +--------+ + + + + | Date | Type | Department | Care Team | Description | +--------+ + + + + | 04/28/ | Hospital | [facility] | Conversion | Unknown cause of | | 2015 | Encounter | CONVERSION DEP [address] | Transaction, | injury, initial | | | | [address] | Provider Unknown | encounter | | | | [facility] [place] | [phone] | | | | | [address] | | | | | | [phone] | | | +--------+ + + + [...] [place] | | | | | | [address] | | | | | | | | +--------+---------+ + + + | 11/04/ | Office | Pulmonology | Sukhjinder, | | | 2019 | Visit | | Windy Aldrich, | | | | | | MD [address] | | | | | | [place], | | | | | | [place] [address] | | | | | | [phone] | | | | | | | [...]
--- OUTSIDE RECORDS SUMMARY | ~2019-06-13 | XMS | Encounter Summary ---
Demographics + + + | Address | [address] | | | [place] [address] | + + + | Home Phone | | + + + | Preferred Language | Unknown | + + + | Marital Status | | + + + | Mandaen Affiliation | 1041 | + + + [...] | | + + +---------+ + | Litchfieldgracie Red) | ECON | Unknown | | | Kalpesh | | | | + + +---------+ + Care Team Providers + +------+ + | Care Corporate Tax Manager Name | Role | Phone | [...] | | Pulmonary | [place], | [address] | | | | | nodules | Jenna George, | [place], | | | | | Procedures | [address] | [place] [address] | | | | | CT Chest wo | [address] | Phone: | | | | | Contrast | [place], | [phone] | | | | | | [place] [address] | Fax: | | | | | | | [phone] | + +--------+ + + + + Encounter Details +--------+ + + + + | Date | Type | Department | Care Team | Description | +--------+ + + + + | 10/24/ | Hospital | [facility] | [place], | Pulmonary nodules | | 2016 | Encounter | MED CTR [address] | Jenna George MD | | | | | [address] [place], | | | | | | [place] [address] | | | | | | [phone] | | | +--------+ + + + [...] [place] | | | | | | [id number] | | | | | | | | +--------+---------+ + + + | 11/04/ | Office | Pulmonology | Sukhjinder, | | | 2019 | Visit | | Windy Aldrich, | | | | | | MD [address] | | | | | | [place] | | | | | | [place] [address] | | | | | | [phone] | | | | | | | | +--------+---------+ + + + documented as of this encounter Procedures + +--------+ + + + | Procedure Name | Priori | Date/Time | Associated Diagnosis | Comments | | | ty | | | | + +--------+ + + + | CT CHEST WO CONTRAST | Routin | 10/25/2015 | Pulmonary nodules | Results for this | | | e | 9:43 AM | | procedure are in the | | | | PDT | | results section. | + +--------+ + + + documented in this encounter Results CT Chest wo Contrast (10/25/2015 9:43 AM PDT) + + | Specimen | + + | | + + + + + | Narrative | Performed At | + + + | EXAM: CT CHEST WO CONTRAST :10/25/2015 9:33 AM HISTORY: follow up | [facility] | | nodules COMPARISON: November 10, 2014 and May 17, 2014. | [facility] | | TECHNIQUE: Axial images are obtained from thoracic inlet to [facility] | | abdomen without contrast. DOSE: DLP [...] + | [address] | [address] | [place] | [phone] | | [facility] | | [address] | | | - IMAGING | | | | + + + + + documented in this encounter Visit Diagnoses + + | Diagnosis | + + | Pulmonary nodules Other nonspecific abnormal finding of lung field | + + documented in this encounter"
--- OUTSIDE RECORDS SUMMARY | ~2019-06-13 | XMS | Encounter Summary ---
Demographics + + + | Address | [address] | | | [place] [address] | + + + | Home Phone | | + + + | Preferred Language | Unknown | + + + | Marital Status | | + + + | Yarsanism Affiliation | 1041 | + + + | Race | Unknown | + + + | Ethnic Group | Unknown | + + + Author + + + | Author | [facility] | | | and [place] | + + + | Organization | [facility] | [...] Team Providers + +------+ + | Care Pottery Striper Name | Role | Phone | + [...] + + | 07/23/ | Office | [facility] | Abdi Wallace | S/Anabella orthopedic | | 2019 | Visit | ORTHOPEDIC SURGERY | MD Casandra [address] [place] [address] | surgery, follow-up | | | | [address] [place] [address] | [place] | exam (Primary Dx) | | | | [place], [place] | [address] | | | | | [address] | | | | | | [phone] | | | +--------+---------+ + + + [...] with tap water. [facility] and will return to [...] | | | | | [place], [place] | | | | | | [address] | | | | | | | | +--------+---------+ + + + | 11/04/ | Office | Pulmonology | Sukhjinder, | | | 2019 | Visit | | Windy Aldrich, | | | | | | MD [address] | | | | | | [place], | | | | | | [place] [address] | | | | | | [phone] | | | | | | | | +--------+---------+ + + + documented as of this encounter Visit Diagnoses + + | Diagnosis | + + | S/P orthopedic surgery, follow-up exam - Primary Follow-up examination, following | | other surgery | + + documented in this encounter"
--- OUTSIDE RECORDS SUMMARY | ~2019-06-13 | XMS | Encounter Summary ---
Demographics + + + | Address | [address] | | | [place] [address] | + + + | Home Phone [...] Team Providers + +------+ + | Care Private Branch Exchange Operator Name | Role | Phone | + +------+ + | Mike Saucedo MD | PCP | | + +------+ + Reason for Visit + + + | Reason | Comments | + + + | Procedure | BLE | + + + Evaluate & Treat (Routine) +--------+ + + + + + | Status | Reason | Specialty | Diagnoses / | Referred By | Referred To | | | | | Procedures | Contact | Contact | +--------+ + + + + + | Closed | Specialty | Physical | Diagnoses | Montano, | Jerald Montano | | | Services | Medicine and | Numbness of | Jerald Suarez, | Shree Suarez MD [address] | | | Required | Rehabilitatio | foot | [address] | | | | n | Weakness of | [address] | [place], | | | | | both legs | [place], | [place] [address] | | | | | Chronic | [place] [address] | Phone: | | | | | midline low | Phone: | [phone] | | | | | back pain | [phone] | Fax: | | | | | with | Fax: | [phone] | | | | | bilateral | [phone] | | | | | | sciatica | | | | | | | Procedures | | | | | | | DOS 09/05/16 | | | +--------+ + + + + + Encounter Details +--------+ + + + + | Date | Type | Department | Care Team | Description | +--------+ + + + + | 09/05/ | Procedure | [facility] | Jerald Montano, | Lumbar radiculopathy | | 2017 | visit | PHYSIATRY [address] | MD [address] | (Primary Dx); | | | | [place], | [place], [place] | Paresthesia of foot, | | | | [place] [address] | [address] | unspecified | | | | [phone] | | laterality; Weakness | | | | | | of both legs; | | | | | | Chronic midline low | | | | | | back pain with | | | | | | bilateral sciatica | +--------+ + + + + [...] + + + | Blood Pressure | 130/58 | 09/05/2016 1:12 PM | | | | | PST | | + + + + + | Pulse | 79 | 09/05/2016 1:12 PM | | | | | PST | | + + + + + | Temperature | - | - | | + + + + + | Respiratory Rate | 16 | 09/05/2016 1:12 PM | | | | | PST | | + + + + + | Oxygen Saturation | - | - | | + + + + + | Inhaled Oxygen | - | - | | | Concentration | | | | + + + + + | Weight | 63 kg (139 lb) | 09/05/2016 1:12 PM | | | | | PST | | + + + + + | Height | 165.1 cm (5' 5") | 09/05/2016 1:12 PM | | | | | PST | | + + + + + | Body Mass Index | 23.13 | 09/05/2016 1:12 PM | | | | | PST | | + + + + + documented in this encounter Patient Instructions Patient Instructions Jerald Montano MD - 09/05/2016 2:28 PM PSTIf you have weakness in t he legs that is getting slowly worse over time, return to the clinic for reevaluation. If you have increasing pain, return to the clinic for reevaluation. If you develop profound leg weakness, seek emergent medical attention. If you have bowel and/or bladder incontinence, seek emergent medical attention. For now you decline further treatment such as medication, physical therapy, steroid injecti on, surgical consultation. documented in this encounter Progress Notes Jerald Montano MD - 09/05/2016 2:58 PM PSTFormatting of this note might be different fro m the original. [facility] Physical Medicine & Rehabilitation [address] [place] [address], [address] [place] [address] Test Date: 09/05/2016 Patient Name: Jt Posey : 1940 Physician: Jerald Montano MD (Jr.) MR #: [id number] Sex: Female Referring Physician: Ventura Saucedo MD HISTORY: Ms. Posey reports that her symptoms have been improved compared to her last visit. She reports that she has had reduced numbness in her toes and reduced heaviness in her legs sinc e she has been sleeping in a recliner chair. She reports that numbness is intermittent. Sh e reports that the numbness primarily affects the toes in both feet. She reports that the n umbness is stronger in the right foot than the left. She reports that the numbness does not occur daily. She reports that numbness when it does occur can last minutes to hours. She reports weakness in the right leg which she describes as heaviness. She reports that the ri ght leg weakness has been getting better. She denies left leg weakness. She denies saddle anesthesia. She denies incontinence of bowel and/or bladder. PHYSICAL EXAM: Sensation is decreased in the toes of both feet, subjectively worse on the right. Reflexes were 1+ over the patella bilaterally and could not be elicited over the Achilles bilaterall y. Babinski s was down going bilaterally. There was 4/5 EHL, knee flexion, and EHL stren gth on the right compared to 5/5 on the left. There was 5/5 hip flexion, knee extension, an d ankle plantar flexion bilaterally. Seated straight leg raise was equivocal on the right a nd negative on the left. Nerve Conduction Studies Anti Sensory Summary Table Site NR Peak (ms) Norm Peak (ms) O-P Amp (V) Norm O-P Amp Site1 Site2 Delta-0 (ms) Dist (cm) Refugio (m/s) Norm Refugio (m/s) Right Saphenous Anti Sensory (Ant Med Mall) 22C Edema 14cm NR <4.4 >2 14cm Ant Med Mall 14.0 >32 Site 2 NR Site 3 NR Site 4 NR Site 5 NR Left Sural Anti Sensory (Lat Mall) 22.9C Calf 4.0 <4.0 3.8 >5.0 Calf Lat Mall 3.1 14.0 45 >35 Site 2 5.0 4.2 Site 3 4.3 4.3 Right Sural Anti Sensory (Lat Mall) 21.9C Calf NR <4.0 >5.0 Calf Lat Mall 14.0 >35 Site 2 NR Site 3 NR Motor Summary Table Site NR Onset (ms) Norm Onset (ms) O-P Amp (mV) Norm O-P Amp Site1 Site2 Delta-0 (ms) Dist (cm) Refugio (m/s) Norm Refugio (m/s) Left Peroneal Motor (Ext Dig Brev) 22.7C Ankle 5.5 <6.1 0.8 >2.5 B Fib Ankle 7.9 32.0 41 >38 B Fib 13.4 0.6 Poplt B Fib 1.6 10.0 63 >40 Poplt 15.0 0.8 Right Peroneal Motor (Ext Dig Brev) 21.6C Edema Ankle 4.8 <6.1 2.8 >2.5 B Fib Ankle 7.9 32.5 41 >38 B Fib 12.7 2.5 Poplt B Fib 2.0 9.0 45 >40 Poplt 14.7 2.5 Left Tibial Motor (Abd Suarez Brev) 22.8C Ankle 4.3 <6.1 3.3 >3.0 Knee Ankle 10.4 40.0 38 >35 Knee 14.7 2.7 Right Tibial Motor (Abd Suarez Brev) 21.8C Edema Ankle 4.6 <6.1 2.2 >3.0 Knee Ankle 10.1 41.5 41 >35 Knee 14.7 1.5 F Wave Studies NR F-Lat (ms) Lat Norm (ms) L-R F-Lat (ms) L-R Lat Norm Left Peroneal (Mrkrs) (EDB) 22.8C NR <60 <5.1 Right Peroneal (Mrkrs) (EDB) 21.7C 56.55 <60 <5.1 Left Tibial (Mrkrs) (Abd Hallucis) 22.8C 52.04 <61 7.17 <5.7 Right Tibial (Mrkrs) (Abd Hallucis) 21.9C 59.21 <61 7.17 <5.7 H Reflex Studies NR H-Lat (ms) L-R H-Lat (ms) L-R Lat Norm Left Tibial (Gastroc) 22C 46.56 <2.0 Right Tibial (Gastroc) 22C NR <2.0 EMG Side Muscle Nerve Root Ins Act Fibs Psw Amp Dur Poly Recrt Int Pat Comment Right GluteusMed SupGluteal L5-S1 Nml Nml Nml Nml Nml Nml Nml Nml Right RectFemoris Femoral L2-4 Nml Nml Nml Nml Nml Nml Nml Nml Right BicepsFemL Sciatic L5-S2 Nml Nml Nml Nml Nml Nml Nml Nml Right VastusMed Femoral L2-4 Nml Nml Nml Nml Nml Nml Nml Nml Right AntTibialis Dp Br Peron L4-5 Incr 2+ Nml Nml >12ms Poly Nml Nml Right PostTibialis Tibial L5, S1 Nml 1+ Nml Nml Nml Nml Nml Nml Right Gastroc Tibial S1-2 Nml Nml 1+ Nml Nml Nml Nml Nml Nerve Conduction Studies Motor Left/Right Comparison Site L Lat (ms) R Lat (ms) L-R Lat (ms) L Amp (mV) R Amp (mV) L-R Amp (%) Site1 Site2 L Ve l (m/s) R Refugio (m/s) L-R Refugio (m/s) Peroneal Motor (Ext Dig Brev) 22.7C Ankle 5.5 4.8 0.7 0.8 2.8 71.4 B Fib Ankle 41 41 0 B Fib 13.4 12.7 0.7 0.6 2.5 76.0 Poplt B Fib 63 45 18 Poplt 15.0 14.7 0.3 0.8 2.5 68.0 Tibial Motor (Abd Suarez Brev) 22.8C Ankle 4.3 4.6 0.3 3.3 2.2 33.3 Knee Ankle 38 41 3 Knee 14.7 14.7 0.0 2.7 1.5 44.4 Anti Sensory Left/Right Comparison Site L Lat (ms) R Lat (ms) L-R Lat (ms) L Amp (V) R Amp (V) L-R Amp (%) Site1 Site2 L Refugio (m/s) R Refugio (m/s) L-R Refugio (m/s) Saphenous Anti Sensory (Ant Med Mall) 22C Edema 14cm 14cm Ant Med Mall Site 2 Site 3 Site 4 Site 5 Sural Anti Sensory (Lat Mall) 22.9C Calf 4.0 3.8 Calf Lat Mall 45 Site 2 5.0 4.2 Site 3 4.3 4.3 NCV FINDINGS: Evaluation of the Left peroneal motor, the Right tibial motor, and the Left s ural sensory nerves showed reduced amplitude. The Right saphenous sensory nerve showed no r esponse (14cm), no response (Site 2), no response (Site 3), no response (Site 4), and no res ponse (Site 5). The Right sural sensory nerve showed no response (Calf), no response (Site 2), and no response (Site 3). All remaining nerves (as indicated in the following tables) w ere within normal limits. F Wave studies indicate that the Left peroneal F wave has no response. All remaining F Wav e latencies were within normal limits. H-reflex studies indicate that the Right tibial H-reflex has no response. EMG FINDINGS: Needle evaluation of the Right anterior tibialis muscle showed increased inse rtional activity, moderately increased spontaneous activity, increased motor unit duration, and polyphasic potentials. All remaining muscles (as indicated in the following table) show ed no evidence of electrical instability. DATABASE: Lumbar MRI from 01/2016 was personally reviewed by me. I concur with findings as reported by the radiologist. The MRI demonstrates multilevel neural foraminal narrowing. Moderate a t most levels, but there is severe neural foraminal narrowing at right L5-S1. IMPRESSION: This is an abnormal study. Nerve conduction study of the right lower extremity was abnormal. Nerve conduction study of the right lower extremity demonstrated non-focal reduced amplitude of the right tibial ne rve which is consistent with lumbar radiculopathy or other proximal nerve injury. There was no evidence of peroneral neuropathy in the right lower extremity. The right sural sensory and right saphenous sensory signals could not be detected. This is likely secondary to mary a in the leg. The presence of peripheral neuropathy cannot be absolutely excluded. Nerve conduction study of the left lower extremity was abnormal. Nerve conduction study of the left lower extremity demonstrated non-focal reduced amplitude of the left peroneral ner ve, which is consistent with lumbar radiculopathy or other proximal nerve injury. There was no evidence of tibial neuropathy in the left lower extremity. The left sural nerve respons e had reduced amplitude, but was felt to be normal for age. The amplitude may have been red uced secondary to edema. The presence of peripheral neuropathy cannot be absolutely exclude d but is unlikely. Needle EMG of the right lower extremity was abnormal. Needle EMG demonstrates right L5 rad iculopathy. DISCUSSION: Ms. Posey demonstrated normal tolerance to nerve conduction study and EMG. She was abl e to complete the entire study. As noted above, this study demonstrates findings most consistent with lumbar radiculopathy. This study confirmed the presence of right L5 radiculopathy. This study was technically c hallenging and affected by the presence of edema in the feet, ankles, forelegs. While this study cannot absolutely rule out the presence of peripheral neuropathy, the presence of spencer pheral neuropathy seems less likely. The findings appear to be more consistent with lumbar radiculopathy, and changes secondary to edema. Ms. Posey declines further treatment at this time. She reports that her symptoms are m uch better since sleeping in a recliner chair. This history is also more consistent with blanca mbar radiculopathy. She declines further treatment at this time. We discuss treatment opti ons including, but not limited to: physical therapy, medication for neuropathic pain, diagno stic and possibly therapeutic steroid injection, and surgical consultation. At this time sy mptoms are not bothering her enough, to want to do more. She was advised that if pain or numbness is worse in the future, [facility]. She was advised that if she has slowly progressive weakness she justen uld seek further treatment. She was advised that if she develops profound weakness she shou ld seek emergent medical attention. She was advised that if she has loss of bowel and/or bl adder control she should seek emergent medical attention. Approximately 15 minutes was spent face to face today with Ms. Posey, beyond the comple tion of the nerve conduction stud and EMG above, over half of which was spent formulating an d discussing her medical treatment plan. Thank you for allowing me to be involved in the care of your patient. If you have any quest ions or comments, please do not hesitate to call. Jerald Montano MD (.) Physical Medicine and Rehabilitation Cc: Ventura Saucedo MD documented in this en counter Plan of Treatment +--------+---------+ + + + | Date | Type | Specialty | Care Team | Description | +--------+---------+ + + + | 07/08/ | Office | Cardiology | Nannette Morrison, | | | 2018 | Visit | | MD [address] | | | | | | [place] | | | | | | [id number] | | | | | | | | +--------+---------+ + + + | 11/04/ | Office | Pulmonology | Sukhjinder, | | | 2019 | Visit | | Windy Aldrich, | | | | | | [address] | | | | | | [place], | | | | | | [place] [address] | | | | | | [phone] | | | | | | | | +--------+---------+ + + + documented as of this encounter Visit Diagnoses + + | Diagnosis | + + | Lumbar radiculopathy - Primary Thoracic or lumbosacral neuritis or radiculitis, | | unspecified | + + | Paresthesia of foot, unspecified laterality | + + | Weakness of both legs Other musculoskeletal symptoms referable to limbs | + + | Chronic midline low back pain with bilateral sciatica | + + documented in this encounter
--- OUTSIDE RECORDS SUMMARY | ~2019-06-13 | XMS | Encounter Summary ---
Demographics + + + | Address | [address] | | | [place] [address] | + + + | Home Phone [...] Team Providers + +------+ + | Care Platform Beater Name | Role | Phone | + [...] SOB (shortness of | | | | [place], | | breath) | | | | [place] [address] | | | | | | [phone] | | | +--------+ + + + [...] [place] | | | | | | [address] | | | | | | | | +--------+---------+ + + + | 11/04/ | Office | Pulmonology | Sukhjinder, | | | 2019 | Visit | | Windy Aldrich, | | | | | | MD [address] | | | | | | [place], | | | | | | [place] [address] | | | | | | [phone] | | | | | | | | +--------+---------+ + + + documented as of this encounter Visit Diagnoses + + | Diagnosis | + + | Cough - Primary | + + | SOB (shortness of breath) Shortness of breath | + + documented in this encounter
--- OUTSIDE RECORDS SUMMARY | ~2019-06-13 | XMS | Encounter Summary ---
Demographics + + + | Address | [address] | | | [place] [address] | + + + | Home Phone [...] Team Providers + +------+ + | Care Nursery Hand Name | Role | Phone | + [...] | | | | | [address] | [place] | | | | | [place] | [address] | | | | | [address] | | | | | | [phone] | | | +--------+---------+ + + + [...] Bruce MD - 07/17/2018 12:52 PM PST [facility] DISCHARGE SUMMARY Pt. Name/Age/: Shireen Martinez [...] . aka: ULTRAM Unchanged Medications Details [facility] [place] Dx: 494.0 NIGEL: 99 months Use as [...] Contact information: [address] [place] [id number] Abdi Wallace MD. Specialty: Orthopedic Surgery Contact information: [address] [facility] [address] RESULTS: Results for SHIREEN MARTINEZ [...] uIU/mL 1.71 Shireen Martinez ECHO Complete Order# [id number] Reading physician: Junito Ramirez MD Ordering physician: [...] UA Latest Ref Range: Clear Clear Specific [place] Latest Ref Range: 1.001 - 1.030 1.018 [...] signed by: Mahesh Bruce MD, 07/17/2018 12:52 [facility] Portions of this chart may have been created with WiseBanyan voice recognition software. Occasi onal wrong-word or [...] mg of acetaminophen (Tylenol) per day. Hydrocodone-acetaminophen ([place] ) and Oxycodone-acetaminophen (Percocet) have 325 mg [...] red in back of calf PE or LA: sudden chest pain or trouble breathing Stroke: [...] help t he stool stay soft and ynke-gb-xuvr. Remember to drink plenty of fluids and fiber-containin g foods. If you do not have a bowel movement within two days of returning home, add milk of magnesi a 30 mL once each night and/or Miralax one capful (17 grams) dissolved in half a cup of wate r once daily for 3 days. These are available oosn-dkw-tvbhhsb at any drugstore. If you are still [...] 13:00 This note was dictated using the GoMiles recognition system. Minor errors in grammar may [...] E' Septal Velocity 8 cm/s MV Deceleration Luna 534.07 cm/s2 MV Deceleration Time 255.28 msec [...] 19:12 This note was dictated using the WiseBanyan voice recognition system. Minor errors in grammar may have occurred eo, Mahesh Jose MD - 07/16/2018 5:11 PM PST [facility] PMG Hospitalist Progress Note Shireen Martinez [...] scheduled with her PCP to see a bowling ball finisher in the [facility] in December and advised her th at [...] options of Coumadin versus NOAC's. The patient's [id number] score is 3-4 dependent upon whether or [...] as outlined above. Mahesh Bruce 07/16/2018 17:12 [facility] Portions of this chart may have been created with WiseBanyan voice recognition software. Occasi onal wrong-word or [...] might be differen t from the original. [facility] PMG Hospitalist Progress Note Shireen Martinez [...] as outlined above. Mahesh Bruce 07/15/2018 10:26 [facility] Portions of this chart may have been created with WiseBanyan voice recognition software. Occasi onal wrong-word or sound-alike substitutions may have occurred due to the inherent israel itations of voice recognition software. Please read the chart carefully and recognize, using context, where these substitutions have occurred Helen Lao MD - 11:09 AM PST [facility] [place] HOSPITALIST PROGRESS NOTE Patient: Shireen Martinez : 1940: Age: 78 y.o. MedRec: [id number] Admission date: 07/12/2018 Hospital day # : [...] Stable. Has outpatient GI follow up at [facility]. #Acute blood loss anemia Likely 2/2 surgery. [...] rate 1L/min Helen Alves MD 07/14/2018 11:09 [facility] Matti Mcfadden PA -C - 07/14/2018 [...] 10:53 This note was dictated using the WiseBanyan voice recognition system. Minor errors in grammar may have occurred Isi Valentine RRT - 07/14/2018 12:45 AM PSTPatient sleeps quietly, no distress apparent. Cannula in her nose, O2 at 1 lpm, Saturations at 95% HR 77. Helen Lao MD - 07/13/2018 5:52 PM PSTFormattin g of this note might be different from the original. [facility] [place] HOSPITALIST PROGRESS NOTE Patient: Shireen Martinez : 1940: Age: 78 y.o. MedRec: [id number] Admission date: 07/12/2018 Hospital day # : [...] Stable. Has outpatient GI follow up at [facility]. FEN: gen Ppx: per ortho Disposition: pending [...] pH, Urine 5.0 5.0 - 8.0 Specific [place] 1.018 1.001 - 1.030 Protein, Urine Negative [...] rate 1L/min Helen Alves MD 07/13/2018 17:52 [facility] documented in this enco unter Plan [...] [place] | | | | | | [id number] | | | | | | | | +--------+---------+ + + + | 11/04/ | Office | Pulmonology | Sukhjinder, | | | 2019 | Visit | | Windy Aldrich, | | | | | | [address] | | | | | | [place], | | | | | | [place] [address] | | | | | | [phone] | | | | | | | [...] + | [facility] | [address] | [place] | [phone] | | [facility] | | [address] | | | - LABORATORY | | [...] mL/min/1.73m2 | [facility] | | | BENINESE | RATE,ESTIMATED | | MEDICAL | | | | mL/min/1.59v2Dyvd than | | CENTER - | | [...] [address] | [place] | [phone] | | [facility] | | [address] | | | - LABORATORY | | [...] | | | | | | n Luna | | | | | + + [...] ST. | [address] | [place] | [phone] | | [facility] | | [address] | | | - LABORATORY | | [...] [address] | [place] | [phone] | | [facility] | | [address] | | | - LABORATORY | | [...] + | [facility] | [address] | [place] | [phone] | | [facility] | | [address] | | | - LABORATORY | | [...] | | | | | | [employer] | | | | | [...] [address] | [place] | [phone] | | [facility] | | [address] | | | - LABORATORY | | [...] | | | | | | [employer] | | | | | [...] [address] | [place] | [phone] | | [facility] | | [address] | | | - LABORATORY | | [...] | | | | | | [employer] | | | | | [...] ST. | [address] | [place] | [phone] | | [facility] | | [address] | | | - LABORATORY | | [...] | | | | | | [employer] | | | | | [...] ST. | [address] | [place] | [phone] | | [facility] | | [address] | | | - LABORATORY | | [...] | | | | AMANDA CHACON MD ([id number]) | | | | | | on [...] + | [facility] | [address] | [place] | [phone] | | [facility] | | [address] | | | - LABORATORY | | [...] [address] | [place] | [phone] | | [facility] | | [address] | | | - LABORATORY | | [...] [address] | [place] | [phone] | | [facility] | | [address] | | | - LABORATORY | | [...] + | [facility] | [address] | [place] | [phone] | | [facility] | | [address] | | | - LABORATORY | | [...] mL/min/1.73m2 | [facility] | | | BENINESE | RATE,ESTIMATED | | MEDICAL | | | | mL/min/1.52o8Dtse than | | CENTER - | | [...] ST. | [address] | [place] | [phone] | | [facility] | | [address] | | | - LABORATORY | | [...] + | [facility] | [address] | [place] | [phone] | | [facility] | | [address] | | | - LABORATORY | | [...] [address] | [place] | [phone] | | [facility] | | [address] | | | - LABORATORY | | [...] [address] | [place] | [phone] | | [facility] | | [address] | | | - LABORATORY | | [...] 0.56 (L) | 0.60 - 1.30 | [facility] | | | | | mg/dL [...] mL/min/1.73m2 | [facility] | | | BENINESE | RATE,ESTIMATED | | MEDICAL | | | | mL/min/1.03k2Ctax than | | CENTER - | | [...] + | [facility] | [address] | [place] | [phone] | | [facility] | | [address] | | | - LABORATORY | | [...] - 1.030 | [facility] | | | [place] | | | [facility] | | [...] [address] | [place] | [phone] | | [facility] | | [address] | | | - LABORATORY | | [...] | | Surgical | | ANTIBIOTIC, POLYSPORIN) [id number] | | 18 11:38 | Applicat | [...] | | | | | | Infiltration, WOOL AND PELT GRADER, Starting | | | | | | [...]
--- OUTSIDE RECORDS SUMMARY | ~2019-06-13 | XMS | Encounter Summary ---
Demographics + + + | Address | [address] | | | [place] [address] | + + + | Home Phone | | + + + | Preferred Language | Unknown | + + + | Marital Status | | + + + | Tenriism Affiliation | 1041 | + + + | Race | Unknown | + + + | Ethnic Group | Unknown | + + + Author + + + | Author | [facility] | | | and [place] | + + + | Organization | [facility] | [...] Team Providers + +------+ + | Care Roof Cement And Paint Maker Name | Role | Phone | [...] | | | | back pain | [address] | | | | | | with | [place], | | | | | | right-sided | [place] [address] | | | | | | sciatica | Phone: | | | | | | Lumbar | [phone] | | | | | | radiculopath | Fax: | | | | | | y Scoliosis | [phone] | | | | | | of [...] + + | 03/22/ | Office | [facility] | Jerald Montano, | Chronic midline low | | 2017 | Visit | PHYSIATRY [address] | [address] | back pain with | | | | [address] [place], | [place], [place] | right-sided sciatica | | | | [place] [address] | [address] | (Primary Dx); | | | | [phone] | | Lumbar | | | | [...] physical therapy within one week, please contact [facility]. Once you have completed physical therapy [...] Twice daily as needed. Misc. Devices (ACAPELLA) [employer] Dx: 494.0 NIGEL: 99 months Use as [...] has no apparent deficits with short or meterman memory. The cranial nerves appear grossly intact. [...] formal course of physical therapy at the [facility] for her lumbar radiculopathy. 4. Shireen Posey [...] | | | | | [place] | | | | | | [address] | | | | | | | | +--------+---------+ + + + | 11/04/ | Office | Pulmonology | Sukhjinder, | | | 2019 | Visit | | Windy Aldrich, | | | | | | [address] | | | | | | [place], | | | | | | [place] [address] | | | | | | [phone] | | | | | | | [...]
--- OUTSIDE RECORDS SUMMARY | ~2019-06-13 | XMS | Encounter Summary ---
Demographics + + + | Address | [address] | | | [place] [address] | + + + | Home Phone [...] [place], [place] | | | | | [address] | | + + + + + Care Team Providers + +------+ + | Care Medical Officer Psychiatry Name | Role | Phone | + +------+ + | Mike Saucedo MD | PCP | | + +------+ + Encounter Details +--------+ + + + + | Date | Type | Department | Care Team | Description | +--------+ + + + + | 05/18/ | Telephone | Digestive Health | Doug March, | | | 2010 | | [facility] at [facility] [address] | [address] | | | | | [place] | [facility] | | | | | Mailcode: Center | [place], [place] | | | | | [facility] and | [address] | | | | | Man [facility] 2 | [phone] | | | | | [place], [place] | | | | | | [address] | | | | | | [phone] | | | +--------+ + + + [...]
--- OUTSIDE RECORDS SUMMARY | ~2019-06-13 | XMS | Encounter Summary ---
Demographics + + + | Address | [address] | | | [place] [address] | + + + | Home Phone | | + + + | Preferred Language | Unknown | + + + | Marital Status | | + + + | Advent Affiliation | 1041 | + + + | Race | Unknown | + + + | Ethnic Group | Unknown | + + + Author + + + | Author | [facility] | | | and [place] | + + + | Organization | [facility] | | | [...] Team Providers + +------+ + | Care Retreader Name | Role | Phone | + +------+ + PCP | Unavailable | + +------+ + Encounter Details +--------+ + + + + | Date | Type | Department | Care Team | Description | +--------+ + + + + | 11/29/ | Hospital | [facility] | | | | 1993 - | Encounter | MED CTR GENERIC OP | | | | | | CONV DEPT [address] | | | | 02/26/ | | [place], | | | | 1993 | | [place] [phone] | | | | | | [phone] | | | +--------+ + + + [...] [place] | | | | | | [address] | | | | | | | | +--------+---------+ + + + | 11/04/ | Office | Pulmonology | Sukhjinder, | | | 2020 | Visit | | Windy Aldrich, | | | | | | [address] | | | | | | [place], | | | | | | [place] [address] | | | | | | [phone] | | | | | | | | +--------+---------+ + + + documented as of this encounter Visit Diagnoses Not on filedocumented in this encounter"
--- OUTSIDE RECORDS SUMMARY | ~2019-06-13 | XMS | Encounter Summary ---
Demographics + + + | Address | [address] | | | [place] [address] | + + + | Home Phone [...] Providers + +------+ + | Care Assistant Site Manager Name | Role | Phone | [...] + + | 10/02/ | Office | [facility] | Matti Magallanes | S/P orthopedic | | 2018 | Visit | ORTHOPEDIC SURGERY | [address] | surgery, follow-up | | | | [address] [facility] | [facility] | exam (Primary Dx); | | | | [place], [place] | [place] [address] | Weakness of right | | | | [address] | [phone] | hip | | | | [phone] | | | +--------+---------+ + + + [...] weakness. She is not taking any prescribed wzyp-tjo-zqntota pain medication. Cu rrent level pain is [...] program. This note was dictated using the [employer] voice recognition system. Minor errors in grammar [...] | | | | | [place] | | | | | | [address] | | | | | | | | +--------+---------+ + + + | 11/04/ | Office | Pulmonology | Sukhjinder, | | | 2019 | Visit | | Windy Aldrich, | | | | | | MD [address] | | | | | | [place], | | | | | | [place] [address] | | | | | | [phone] | | | | | | | | +--------+---------+ + + + documented as of this encounter Visit Diagnoses + + | Diagnosis | + + | S/P orthopedic surgery, follow-up exam - Primary Follow-up examination, following | | other surgery | + + | Weakness of right hip | + + documented in this encounter
--- OUTSIDE RECORDS SUMMARY | ~2019-06-13 | XMS | Encounter Summary ---
Demographics + + + | Address | [address] | | | [place] [address] | + + + | Home Phone | | + + + | Preferred Language | Unknown | + + + | Marital Status | | + + + | Caodaism Affiliation | CAT | + + + [...] [place], [place] | | | | | [address] | | + + + + + Care Team Providers + +------+ + | Care Brainer Name | Role | Phone | + [...] (Primary Dx); Other | | | | [facility] 4th Floor [address] | specified | | | | [place] | [facility] [place] | pre-operative | | | | Mailcode: CH4S | [address] | examination; Aortic | | | | [place] [facility] | [phone] | insufficiency; GERD | | | | and Healing, | | (gastroesophageal | | | | Building 1,4th Floor | | reflux disease) | | | | [place], [place] | | | | | | [address] | | | | | | [phone] | | | +--------+---------+ + + + [...] Discontinued After | | Periph | | TRIPOLER | Discharge | | eral | | [...] perfume, lotions or powder. Remove any nail lao from at least one fingernail. Do not [...] Time: Someone from your surgeon's office or [facility] will provide you with information regarding your [...] it is after office hours, call the [facility] manual control auger press operator at [phone] and ask them to page your doc [...] further investigation and manageme nt. A. Acute MN within 7 days: no B. Unstable angina/Recent MN (7- 30 days): no C. Decompensated CHF: [...] no Rate of cardiac , non fatal MN, non fatal cardiac arrest 0 risk factors - 0.4% 1 risk factors - 1%, 2 risk factors - 7%, 3 or >risk factors - 11% (may benefit from perioperative beta blockers) Risk Factor Recommendations: 0 risk factors- proceed with surgery 1- 2 risk factors- proceed with planned surgery with HR control or consider noninvasive jeferson ting if it will change manager. 3 or more risk factors AND high risk surgery- consider testing if it will change manager . MET ASSESSMENT: 3. METS--walking slowly on [...] contribute to this patient's care. CEASAR HOBBS [facility] [address] [facility] [address] documented in this e ncounter Plan [...] | + +--------+ + + + | [place] COLLECTION VENOUS | Routin | 10/24/2011 | [...] | | | | | MISAEL ABREU ([id number]) | | | | | | on 10/25/2011 9:04:54 AM | | | | + + + + + + + + | Specimen | + + | | + + + + + | Narrative | Performed At | + + + | Please click | [facility] | | on view image for the detailed interpretation from [employer] results. | CARDIOLOGY | + + + + + + + + | Performing | Address | City/State/Zipcode | Phone Number | | Organization | | | | + + + + + | [facility] | [address] | [place], [place] | | | CARDIOLOGY | [address] | [address] | | + + + + + [...] | | | DEPARTMENT | | | ROMANIAN | | | OF | | | [...] [place] DEPARTMENT | [address] | [place] [address] | | | PATHOLOGY | [address] [...] DEPARTMENT OF | [address] | [place] [address] | | | PATHOLOGY | [address] [...] DEPARTMENT OF | [address] | [place] [address] | | | PATHOLOGY | [address] [...] POINT | [address] | [place] [address] | | | OF CARE TESTS | [...]
--- OUTSIDE RECORDS SUMMARY | ~2019-06-13 | XMS | Encounter Summary ---
Demographics + + + | Address | [address] | | | [place] [address] | + + + | Home Phone [...] | | + + +---------+ + | Eleroygracie Red) | ECON | Unknown | | | Kalpesh | | | | + + +---------+ + Care Team Providers + +------+ + | Care Desktop Publisher Name | Role | Phone | + [...] | | Pulmonary | Windy | [address] | | | | | nodule | MD Elinor | [place], | | | | | Procedures | [address] | [place] [address] | | | | | CT Chest wo | [address] | Phone: | | | | | Contrast | [place] | [phone] | | | | | | [place], [place] | Fax: | | | | | | [address] | [phone] | | | | | | Phone: | | | | | | | [phone] | | | | | | | Fax: | | | | | | | [phone] | | +--------+--------+ + + + + [...] + + | 11/27/ | Hospital | [facility] | Sukhjinder, | Pulmonary nodule | | 2017 | Encounter | MED CTR [address] | Windy Aldrich, | | | | | [place], | [address] | | | | | [place] [address] | [place], | | | | | [phone] | [place] [address] | | | | | | [phone] | | | | | | | [...] [place] | | | | | | [address] | | | | | | | | +--------+---------+ + + + | 11/04/ | Office | Pulmonology | Sukhjinder, | | | 2019 | Visit | | Windy Aldrich, | | | | | | MD [address] | | | | | | [place] | | | | | | [place] [address] | | | | | | [phone] | | | | | | | [...] | | Dictated and Signed by: Maksim Btucher MD | | Electronically signed: 11/27/2016 11:36 [...]
--- OUTSIDE RECORDS SUMMARY | ~2019-06-13 | XMS | Encounter Summary ---
Demographics + + + | Address | [address] | | | [place] [address] | + + + | Home Phone | | + + + | Preferred Language | Unknown | + + + | Marital Status | | + + + | Anabaptist Affiliation | 1041 | + + + | Race | Unknown | + + + | Ethnic Group | Unknown | + + + Author + + + | Author | [facility] | | | and [place] | + + + | Organization | [facility] | | | and [place] | + + + | Address | Unknown | + + + | Phone | Unavailable | + + + Support + + +---------+ + | Name | Relationship | Address | Phone | + + +---------+ + | Sade Beckwith | ECON | Unknown | | + + +---------+ + | Cotuitgracie Red) | ECON | Unknown | | | [place] | | | | + + +---------+ + Care Team Providers + +------+ + | Care Entry Level Marketing Assistant Name | Role | Phone | [...] | | | | | | [place] [address] | | | | | | [phone] | | | +--------+--------+ + + + [...] [place] | | | | | | [address] | | | | | | | | +--------+---------+ + + + | 11/04/ | Office | Pulmonology | Sukhjinder, | | | 2019 | Visit | | Windy Aldrich, | | | | | | MD [address] | | | | | | [place], | | | | | | [place] [address] | | | | | | [phone] | | | | | | | | +--------+---------+ + + + documented as of this encounter Visit Diagnoses Not on filedocumented in this encounter"
--- OUTSIDE RECORDS SUMMARY | ~2019-06-13 | XMS | Encounter Summary ---
Demographics + + + | Address | [address] | | | [place] [address] | + + + | Home Phone | | + + + | Preferred Language | Unknown | + + + | Marital Status | | + + + | Temple Affiliation | CAT | + + + | Race | White | + + + | Ethnic Group | Not or | + + + Author + + + | Author | [facility] | + + + | Organization | [facility] | + + + | Address | Unknown | + + + | Phone | Unavailable | + + + Support + + + + + | Name | Relationship | Address | Phone | + + + + + | Jer Posey | ECON | [address] | | | | | [place], [place] | | | | | [address] | | + + + + + Care Team Providers + +------+ + | Care Ladle Liner Name | Role | Phone | + +------+ + PCP | Unavailable | + +------+ + Encounter Details +--------+ + + + + | Date | Type | Department | Care Team | Description | +--------+ + + + + | 01/02/ | Abstract | Digestive Health | Radha, | | | 2010 | | [place] [facility] [address] | MD Issa [address] | | | | | [address] | [address] | | | | | Mailcode: Center | [place], [place] | | | | | [facility] Health and | [address] | | | | | [facility] 2 | [phone] | | | | | [place], [place] | | | | | | [address] | | | | | | [phone] | | | +--------+ + + + [...]
--- OUTSIDE RECORDS SUMMARY | ~2019-06-13 | XMS | Encounter Summary ---
Demographics + + + | Address | [address] | | | [place] [address] | + + + | Home Phone | | + + + | Preferred Language | Unknown | + + + | Marital Status | | + + + | Yarsanism Affiliation | CAT | + + + | Race | White | + + + | Ethnic Group | Not or | + + + Author + + + | Author | [facility] | + + + | Organization | [facility] | + + + | Address | Unknown | + + + | Phone | Unavailable | + + + Support + + + + + | Name | Relationship | Address | Phone | + + + + + | Jer Posey | ECON | [address] | | | | | [place], [place] | | | | | [address] | | + + + + + Care Team Providers + +------+ + | Care Text Transcriber Name | Role | Phone | [...] | | | | | Procedures | [facility] | [facility] | | | | | CONSULT TO | | Arvind De La Torre, | | | | | GASTROENTERO | GASTROENTERO | [place] | | | | | LOGY | LOGY [address] | [address] | | | | | | [address] | Phone: | | | | | | [place], | [phone] | | | | | | [place] [address] | Fax: | | | | | | Phone: | [phone] | | | | | | [phone] | | | | | | | Fax: | | | | | | | [phone] | | +--------+--------+ + + + + Encounter Details +--------+---------+ + + + | Date | Type | Department | Care Team | Description | +--------+---------+ + + + | 05/16/ | Office | Digestive Health | Doug March, | Paraesophageal | | 2010 | Visit | Center at [facility] [address] | MD Rose1 AMANDA Albert | hernia (Primary Dx) | | | | AMANDA Miles | [facility] | | | | | Mailcode: [place] | [place], [place] | | | | | [facility] and | [address] | | | | | [facility] 2 | [phone] | | | | | [place], [place] | | | | | | [address] | | | | | | [phone] | | | +--------+---------+ + + + [...] Mcneill RN - 05/16/2011 9:57 AM PDTEPICSPINPTPREOPINSTRUCTIONSP [facility] INFORMATION [facility] General Surgery Office Toll-free: ext [phone] Surgery [...] the surgery. Please see the list below, [facility] has a list of products that contain [...] please call the General Surgery Office at [phone] for [id number]. PARKING Parking for patients and visitors is available in the [facility] Parking structure located across from [...] Please notify the general surgery office at [phone] as soon as possible should you nee [...] prior to your surgery. PRODUCTS CONTAINING ASPIRIN [place], Anacin, Anexsia with Codeine, Andynos, Aspirin, Aspirin suppositories, Ascrip tin, Aspergum, Axotal, B-A-C, Baby Aspirin, Harley, BC Powder, Bexophene, Buffaprin, Bufferin , Buffinol, Cama-Arthritis Strength, Congespirin, [place], Coricidin, Damason, Darvon, Dristan, Leni-Gesic, Digel, Dolprin #3 Tablets, Donatab, Doxaphene, Duragesic, Easprin, Ecotrin, Emag rin Forte, Emiprin, Emprazil, Equagesic, Equazine M, Excedrin, Fiogesic, Fiorgen PH, Fiorice t, Fiorinal, 4-Way Cold Tablet Gemnisyn, Indocin, Liquprin, Lortab ASA, Magnaprin, Marnal, Meprobamate, Midol, Momentum, N orgesic, [place], Orphengesic, Pabalate, P-A-C, Percodan, Presalin, Robaxasil, Roxiprin, David eto, Salocol SK-65 Compound, Sine-Aid, Sine-Off,, [place], Supac, Talwin Compound, Trigesic, Tolectin , Traiminicin, Vanquish, ZORprin, Zomax PRODUCTS CONTAINING IBUPROFEN Advil, Aleve, Haltran, Medipren, Midol, Motrin, Naproxyn, Nuprin, Rufen OTHER PRODUCTS WHICH MAY PROMOTE BLEEDING Vitamin E, Gingko Biloba, Marine Fatty Acids, [place]-3 Fish Oil Supplements documented in this encounter Progress Notes Doug March MD - 05/23/2011 11:33 AM PDTI saw and evaluated the patient. I agree with the findings and the plan of care as documented in the resident s note. Doug March M.D. [facility] [employer] ([facility]) Professor and Vice-Basket Weaver of Surgery [facility] for Pancreatic Disease Research Pancreatic/ HepatoBiliary and Foregut Working Groups Mail Code L223A [address], [place]. [address] email: [email or web address] Bibi Hadley MD - 05/16/2011 9:46 AM [...]
--- OUTSIDE RECORDS SUMMARY | ~2019-06-13 | XMS | Encounter Summary ---
Demographics + + + | Address | [address] | | | [place] [address] | + + + | Home Phone [...] + | Author | [facility] | | | and [place] | + + + | Organization | [facility] | | | and [...] Providers + +------+ + | Care Supervisor Endless Track Vehicle Name | Role | Phone | + [...] | Radiology | Diagnoses | Sukhjinder, | [facility] [address] | | n not | | | Multiple | Windy | DEMARCO RUVALCABA | | Required | | | pulmonary | MD Elinor | [place], [place] | | | | | nodules | [address] | [address] | | | | | Procedures | [address] | Phone: | | | | | CT Chest wo | [address] | [phone] | | | | | Contrast | [place], [place] | Fax: | | | | | | [address] | [phone] | | | | | | Phone: | | | | | | | [phone] | | | | | | | Fax: | | | | | | | [phone] | | + +--------+ + + + + Encounter Details +--------+---------+ + + + | Date | Type | Department | Care Team | Description | +--------+---------+ + + + | 05/19/ | Office | [facility] | Sukhjinder, | Bronchiectasis | | 2019 | Visit | PULMONOLOGY [address] | Windy Aldrich, | without complication | | | | [address] [place] [address] | [address] | ([facility]) (Primary Dx); | | | | [place], [place] | [address] [place], | Mild airflow | | | | [address] | [place] [address] | obstruction on | | | | [phone] | [phone] | pulmonary function | | | | | | test; Multiple | | | | | | pulmonary nodules; | | | | | | ILD (interstitial | | | | | | lung disease) ([facility]); | | | | | | 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 She denies jonathan st pains, but [...] 0 years. 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 She denies occupational [...] HEMIARTHROPLASTY HIP; Surgeon: Abdi Wallace MD; Location: [facility] MAIN OR KNEE ARTHROSCOPY Right 2007 [...] systolic function NML, Grade 1 diastolic abnormality, Elliott visually estimates LVEF 65-70%. Moderate LAE. RA/RV [...] Slaughter MD Pulmonary and Critical Care Medicine [facility] [address] , [place] [address] documentdamon poole in this encounter Plan of Treatment +--------+---------+ + + + | Date | Type | Specialty | Care Team | Description | +--------+---------+ + + + | 07/08/ | Office | Cardiology | Nannette [place], | | | 2018 | Visit | | MD Angela HARDEN | | | | | | [place] | | | | | | [id number] | | | | | | | | +--------+---------+ + + + | 11/04/ | Office | Pulmonology | Sukhjinder, | | | 2019 | Visit | | Windy Aldrich | | | | | | MD Angela [address] | | | | | | [place] | | | | | | [place] [address] | | | | | | [phone] | | | | | | | [...]
--- OUTSIDE RECORDS SUMMARY | ~2019-06-13 | XMS | Encounter Summary ---
Demographics + + + | Address | [address] | | | [place] [address] | + + + | Home Phone | | + + + | Preferred Language | Unknown | + + + | Marital Status | | + + + | Latter Day Affiliation | 1041 | + + + | Race | Unknown | + + + | Ethnic Group | Unknown | + + + Author + + + | Author | [facility] | | | and [place] | + + + | Organization | [facility] | | | [...] Team Providers + +------+ + | Care Temporary Help Agency Referral Clerk Name | Role | Phone | [...] | | Pulmonary | [place], | [address] [place] [address] | | | | | nodules | Jenna B, | [place], | | | | | Procedures | MD [address] | [place] [address] | | | | | CT Chest wo | [address] | Phone: | | | | | Contrast | [place], | [phone] | | | | | | [place] [address] | Fax: | | | | | | | [phone] | + +--------+ + + + + [...] W | Jenna George MD | bronchitis ([facility]); | | | | [place], | | Bronchiectasis | | | | [place] [address] | | without complication | | | | [phone] | | ([facility]); | | | | | | Gastroesophageal [...] 2007 Ruptured appendix 1960 Placenta previa Bronchiectasis ([facility]) Valvular heart disease Past Surgical History Past [...] of Education: N/A 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 * [facility] ([facility]) Pulmonary Function Testing - [facility] Referral 2. Bronchiectasis without complication (HCC) J47.9 [...] made to ensure accuracy; however, inadvertent computerized synthetic soil blocks pulper errors may be pre sent. documented in t his encounter Plan of Treatment +--------+---------+ + + + | Date | Type | Specialty | Care Team | Description | +--------+---------+ + + + | 07/08/ | Office | Cardiology | Nannette [place], | | | 2019 | Visit | | MD Angela HARDEN | | | | | | [place] | | | | | | [address] | | | | | | | | +--------+---------+ + + + | 11/04/ | Office | Pulmonology | Sukhjinder, | | | 2020 | Visit | | Windy Aldrich, | | | | | | [address] | | | | | | [place], | | | | | | [place] [address] | | | | | | [phone] | | | | | | | [...] | | | MD Crow 10/30/2015 13:40 [facility] | | | [place] CC: Mike Saucedo MD | | + [...] 10, 2014 and May 17, 2014. | [facility] | | TECHNIQUE: Axial images are obtained from thoracic inlet to [facility] | | abdomen without contrast. DOSE: [...] | + + + + + | [address] | [address] | [place] | [phone] | | [facility] | | [address] | | | - IMAGING | | [...]
--- OUTSIDE RECORDS SUMMARY | ~2019-06-13 | XMS | Encounter Summary ---
Demographics + + + | Address | [address] | | | [place] [address] | + + + | Home Phone [...] Team Providers + +------+ + | Care Health And Safety Representative Name | Role | Phone | + +------+ + | Mike Saucedo MD | PCP | | + +------+ + Encounter Details +--------+ + + + + | Date | Type | Department | Care Team | Description | +--------+ + + + + | 11/07/ | Hospital | [facility] | Conversion | Bronchiectasis | | 2018 | Encounter | CENTER CARDIAC | Transaction, | without complication | | | | PULMONARY REHAB | Provider Unknown | ([facility]); Mild airflow | | | | [address] | | obstruction on | | | | [place], [place] | (Fax) | pulmonary function | | | | [address] | | test | | | | [phone] | | | +--------+ + + + [...] [place] | | | | | | [address] | | | | | | | | +--------+---------+ + + + | 11/04/ | Office | Pulmonology | Sukhjinder, | | | 2019 | Visit | | Windy Aldrich, | | | | | | [address] | | | | | | [place], | | | | | | [place] [address] | | | | | | [phone] | | | | | | | | +--------+---------+ + + + documented as of this encounter Visit Diagnoses + + | Diagnosis | + + | Bronchiectasis without complication (HCC) Bronchiectasis without acute exacerbation | + + | Mild airflow obstruction on pulmonary function test | + + documented in this encounter"
--- OUTSIDE RECORDS SUMMARY | ~2019-06-13 | XMS | Encounter Summary ---
Demographics + + + | Address | [address] | | | [place] [address] | + + + | Home Phone | | + + + | Preferred Language | Unknown | + + + | Marital Status | | + + + | Shinto Affiliation | 1041 | + + + | Race | Unknown | + + + | Ethnic Group | Unknown | + + + Author + + + | Author | [facility] | | | and [place] | + + + | Organization | [facility] | | | [...] Team Providers + +------+ + | Care Electronics Supervisor Name | Role | Phone | [...] | foot | [address] | | | | n | Weakness of | [address] | [place], | | | | | both legs | [place], | [place] [address] | | | | | Chronic | [place] [address] | Phone: | | | | | midline low | Phone: | [phone] | | | | | back pain | [phone] | Fax: | | | | | with | Fax: | [phone] | | | | | bilateral | [phone] | | | | | | sciatica [...] PHYSIATRY [address] | MD [address] | (Primary Dx); | | | | [place], | [place], [place] | Paresthesia of foot, | | | | [place] [address] | [address] | unspecified | | | | [phone] | | laterality; Weakness | | | [...] might be different fro m the original. [facility] Physical Medicine & Rehabilitation [address] [place] [address], [address] [place] [address] Test Date: 09/05/2016 Patient Name: Jt Posey : 1940 Physician: Jerald Montano MD (Jr.) MR #: [id number] Sex: Female Referring Physician: Ventura Saucedo MD [...] the future, she should return to [facility] for [facility]evaluation. She was advised that if [...] | 2018 | Visit | | MD Anglea HARDEN | | | | | | [place] | | | | | | [address] | | | | | | | | +--------+---------+ + + + | 11/04/ | Office | Pulmonology | Sukhjinder, | | | 2019 | Visit | | Windy Aldrich, | | | | | | [address] | | | | | | [place], | | | | | | [place] [address] | | | | | | [phone] | | | | | | | [...]
--- OUTSIDE RECORDS SUMMARY | ~2019-06-13 | XMS | Encounter Summary ---
Demographics + + + | Address | [address] | | | [place] [address] | + + + | Home Phone [...] | | + + +---------+ + | Bicknellgracie Red) | ECON | Unknown | | | Kalpesh | | | | + + +---------+ + Care Team Providers + +------+ + | Care Groundwater Consultant Name | Role | Phone | [...] | | Pulmonary | [place], | [address] [place] | | | | | nodules | Jenna George, | [place], | | | | | Procedures | [address] | [place] [address] | | | | | CT Chest wo | [address] | Phone: | | | | | Contrast | [place], | [phone] | | | | | | [place] [address] | Fax: | | | | | | | [phone] | + +--------+ + + + + Encounter Details +--------+ + + + + | Date | Type | Department | Care Team | Description | +--------+ + + + + | 10/24/ | Hospital | [facility] | [place], | Pulmonary nodules | | 2016 | Encounter | MED CTR CT [address] | Jenna George MD | | | | | [place], | | | | | | [place] [address] | | | | | | [phone] | | | +--------+ + + + [...] [place] | | | | | | [id number] | | | | | | | | +--------+---------+ + + + | 11/04/ | Office | Pulmonology | Sukhjinder, | | | 2019 | Visit | | Windy Aldrich, | | | | | | MD [address] | | | | | | [place] | | | | | | [place] [address] | | | | | | [phone] | | | | | | | [...] 10, 2014 and May 17, 2014. | [facility] | | TECHNIQUE: Axial images are obtained from thoracic inlet to [facility] | | abdomen without contrast. DOSE: [...] + | [facility] | [address] | [place] | [phone] | | [facility] | | [address] | | | - IMAGING | | | | + + + + + documented in this encounter Visit Diagnoses + + | Diagnosis | + + | Pulmonary nodules Other nonspecific abnormal finding of lung field | + + documented in this encounter"
--- OUTSIDE RECORDS SUMMARY | ~2019-06-13 | XMS | Encounter Summary ---
Demographics + + + | Address | [address] | | | [place] [address] | + + + | Home Phone [...] Team Providers + +------+ + | Care Mine Production Engineer Name | Role | Phone | + +------+ + | Mike Saucedo MD | PCP | | + +------+ + Encounter Details +--------+ + + + + | Date | Type | Department | Care Team | Description | +--------+ + + + + | 05/21/ | Hospital | [facility] | Conversion | Diagnosis unknown | | 2016 | Encounter | CONVERSION [address] | Transaction, | | | | [address] | Provider Unknown | | | | | [place], [place] | [phone] | | | | | [address] | | | | | | [phone] | | | +--------+ + + + [...] [place] | | | | | | [address] | | | | | | | | +--------+---------+ + + + | 11/04/ | Office | Pulmonology | Sukhjinder, | | | 2019 | Visit | | Windy Aldrich, | | | | | | MD [address] | | | | | | [place] | | | | | | [place] [address] | | | | | | [phone] | | | | | | | [...]
--- OUTSIDE RECORDS SUMMARY | ~2019-06-13 | XMS | Encounter Summary ---
Demographics + + + | Address | [address] | | | [place] [address] | + + + | Home Phone [...] Team Providers + +------+ + | Care Phlebotomist Name | Role | Phone | + [...] | Medical Question | | | | [place], | | | | | | [place] [address] | | | | | | [phone] | | | +--------+---------+ + + + [...] [place] | | | | | | [address] | | | | | | | | +--------+---------+ + + + | 11/04/ | Office | Pulmonology | Sukhjinder, | | | 2019 | Visit | | Windy Aldrich, | | | | | | MD [address] | | | | | | [place] | | | | | | [place] [address] | | | | | | [phone] | | | | | | | | +--------+---------+ + + + documented as of this encounter Results MOHINDER Tomosynthesis Diagnostic Right (06/04/2014 1:08 PM [facility]) + + | Specimen | + [...] + | MISCELLANEOUS LAB | | | [phone] | + +---------+ + + | MISCELANIOUS LAB | | | [phone] | + +---------+ + + documented in this encounter Visit Diagnoses + + | Diagnosis | + + | Abnormal finding on radiological examination of breast - Primary | + + documented in this encounter"
[2019-06-13] MEDS ORDERED: QUESTRAN PACKET4 GM (08:54)
[2019-06-13] MEDS ORDERED: L-ARGININE1000 MG (08:55)
[2019-06-13] MEDS ORDERED: B-121000 MC2 (08:55)
[2019-06-13] MEDS ORDERED: VANDAZOLE70 GM (08:56)
== END 2019-06-13 11:22 | disposition home or self-care (01) ==
LOC: ED 08:31
DX: R13.10 Dysphagia, unspecified (principal); I48.91 Unspecified atrial fibrillation; J44.9 Chronic obstructive pulmonary disease, unspecified; Z87.891 Personal history of nicotine dependence; Z88.8 Allergy status to other drugs, medicaments and biological substances; Z88.1 Allergy status to other antibiotic agents; Z79.899 Other long term (current) drug therapy; Z79.01 Long term (current) use of anticoagulants
CPT/HCPCS: 74177; 80053; 85025; 99284-25; J7040; Q9967

== ENCOUNTER 2021-05-11 18:33 | Emergency (ER) | payer MEDICARE, OTHER ==
[~2021-05-11] VITALS: Ht 165.1 cm; Wt 56.2 kg
[~2021-05-11 18:33] MED LIST changes: +B-121000 MC2 PO; +CHOLESTYRAMINE P4 GM PO; +COLESTIPOL HCL1 GM PO; +L-ARGININE1000 MG; +LASIX20 MG PO; +LOPERAMIDE2 MG PO; +QUESTRAN PACKET4 GM; +VANDAZOLE70 GM
--- NOTE | 2021-05-13 13:48 | EKG ---
[facility] [address] [place] [address] Signed Atrial flutter with variable AV block Nonspecific ST and T wave abnormality Abnormal ECG When compared with ECG of 20-NOV-2018 17:31, Atrial flutter has replaced Sinus rhythm Vent. rate has increased BY [address] now depressed in Anterior leads Confirmed by JACEK GLYNN MD ([id number]) on 05/13/2021 1:48:03 PM Electronically Signed By: JACEK GLYNN MD 05/13/21 1348 PATIENT NAME: OSCAR MARTINEZ Electrocardiogram DATE OF : 38 PHYSICIAN: JACEK GLYNN MD REPORT #: [id number] REPORT IS CONFIDENTIAL AND NOT TO BE RELEASED WITHOUT AUTHORIZATION
== END 2021-05-11 20:25 | disposition home or self-care (01) ==
LOC: ED 18:33
DX: I48.91 Unspecified atrial fibrillation (principal); J44.9 Chronic obstructive pulmonary disease, unspecified; Z87.891 Personal history of nicotine dependence; Z88.1 Allergy status to other antibiotic agents; Z88.8 Allergy status to other drugs, medicaments and biological substances; Z79.01 Long term (current) use of anticoagulants; Z79.899 Other long term (current) drug therapy
CPT/HCPCS: 80053; 84484; 85025; 85610; 93005; 93010; 99285-25

== ENCOUNTER 2021-08-26 14:40 | Emergency (ER) | payer OTHER, MEDICARE ==
[~2021-08-26] VITALS: Ht 165.1 cm; Wt 56.7 kg
[~2021-08-26 14:40] MED LIST changes: +FAMOTIDINE20 MG PO
[2021-08-26] MEDS ORDERED: MURO-12815 M1 OPTH (15:10)
[2021-08-26] MEDS ORDERED: CHOLESTYRAMINE P4 GM PO (15:10)
[2021-08-26] MEDS ORDERED: METRONIDAZOLE70 GM VAGINAL (15:10)
[2021-08-26] MEDS ORDERED: TRETINOIN20 G1 TOP (15:11)
[2021-08-26] MEDS ORDERED: HYDROCODON-ACE1 EA10 PO (17:16)
== END 2021-08-26 18:22 | disposition home or self-care (01) ==
LOC: ED 14:40
DX: S32.501A Unspecified fracture of right pubis, initial encounter for closed fracture (principal); J44.9 Chronic obstructive pulmonary disease, unspecified; I48.91 Unspecified atrial fibrillation; Z87.891 Personal history of nicotine dependence; Z88.8 Allergy status to other drugs, medicaments and biological substances; Z88.1 Allergy status to other antibiotic agents; Z79.01 Long term (current) use of anticoagulants; Z79.899 Other long term (current) drug therapy; W01.0XXA Fall on same level from slipping, tripping and stumbling without subsequent striking against object, initial encounter
CPT/HCPCS: 36415; 73502; 80048; 85025; 85610; 96374; 99283-25; J1170

== ENCOUNTER 2022-03-04 12:02 | Emergency (ER) | payer MEDICARE, OTHER ==
[~2022-03-04] VITALS: Ht 165.1 cm; Wt 56.7 kg
[~2022-03-04 12:02] MED LIST changes: +HYDROCODON-ACE1 EA10 PO; +METRONIDAZOLE70 GM VAGINAL; +MURO-12815 M1 OPTH; +TRETINOIN20 G1 TOP
== END 2022-03-04 16:00 | disposition home or self-care (01) ==
LOC: ED 12:02
DX: K59.00 Constipation, unspecified (principal); I48.91 Unspecified atrial fibrillation; J44.9 Chronic obstructive pulmonary disease, unspecified; Z87.891 Personal history of nicotine dependence; Z88.8 Allergy status to other drugs, medicaments and biological substances; Z88.1 Allergy status to other antibiotic agents; Z79.899 Other long term (current) drug therapy; Z79.01 Long term (current) use of anticoagulants
CPT/HCPCS: 99283

== ENCOUNTER 2023-07-28 01:36 | Emergency (ER) | payer MEDICARE, OTHER ==
[~2023-07-28] VITALS: Ht 165.1 cm; Wt 51.7 kg
[~2023-07-28 01:36] MED LIST changes: +AMOX TR-K CLV1 EACH PO; +DOXYCYCLINE HY100 MG PO; +IMODIUM A-D2 M2 PO; +MURO-12815 M1 OD; -MURO-12815 M1 OPTH; +REFRESH LIQUIGE15 ML OU; +VENTOLIN HFA18 GM INH; +VITAMIN D21250 MCG PO; +VITAMIN D250 MCG PO
[2023-07-28 01:59] LABS: BASOPHILS 0.6 % (0-2); EOSINOPHILS 2.4 % (0-6); HEMOGLOBIN 10.4 g/dL (12.0-18.0); MCH 29.8 (27-36); MCHC 33.7 g/dl (30-36); MCV 88.4 fl (81-99); PLATELET COUNT 343 K/uL (140-440); RDW 14.2 (10.5-15.0)
[2023-07-28 02:20] LABS: ALBUMIN/GLOBULIN RATIO 0.61 (1.1-2.4); ANION GAP 11.5 (7-21); BILIRUBIN, TOTAL 0.3 ng/dL (0.2-1.0); BUN/CREATININE RATIO 24.24 (6.0-28.6); CALCIUM 9.1 mg/dL (8.5-10.1); CREATININE, SERUM 0.99 mg/dL (0.55-1.02); MAGNESIUM 1.8 mg/dL (1.8-2.4); POTASSIUM 3.5 mmol/L (3.5-5.1); PROTEIN, TOTAL 7.9 g/dL (6.4-8.2)
[2023-07-28 02:35] LABS: INFLUENZA B NAA NEGATIVE (NEGATIVE); RESPIRATORY SYNCYTIAL VIR NAA NEGATIVE (NEGATIVE)
[2023-07-28 03:38] LABS: BILIRUBIN, URINE NEGATIVE (negative); BLOOD/HGB, URINE MODERATE (Negative); KETONE, URINE NEGATIVE (Negative); LEUK ESTERASE, URINE NEGATIVE (negative); NITRITE, URINE NEGATIVE (negative)
[2023-07-28 04:30] LABS: EPITHELIAL CELLS, URINE SQUAMOUS 1+ /lpf (0-1+); REFLEX CULTURE, URINE No (No)
[2023-07-28 05:07] VITALS: BP 118/62
--- NOTE | 2023-07-28 15:25 | EKG ---
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 rate has decreased BY 47 BPM Non-specific change in ST segment in Anterior leads Nonspecific T wave abnormality no longer evident in Inferior leads Nonspecific T wave abnormality no longer evident in Anterolateral leads Confirmed by ASHLEY AGUILAR MD ([id number]) on 07/28/2023 3:24:59 PM Electronically Signed By: ASHLEY AGUILAR 07/28/23 1525 PATIENT NAME: OSCAR MARTINEZ Electrocardiogram DATE OF : 38 PHYSICIAN: ASHLEY AGUILAR REPORT #: [id number] REPORT IS CONFIDENTIAL AND NOT TO BE RELEASED WITHOUT AUTHORIZATION
== END 2023-07-28 05:08 | disposition home or self-care (01) ==
LOC: ED 01:36
PROVIDERS: Family Medicine
DX: R53.1 Weakness (principal); D64.9 Anemia, unspecified; I48.91 Unspecified atrial fibrillation; J44.9 Chronic obstructive pulmonary disease, unspecified; I35.0 Nonrheumatic aortic (valve) stenosis; Z11.52 Encounter for screening for COVID-19; Z87.891 Personal history of nicotine dependence; Z88.1 Allergy status to other antibiotic agents; Z88.8 Allergy status to other drugs, medicaments and biological substances; Z79.01 Long term (current) use of anticoagulants; Z79.899 Other long term (current) drug therapy; Z79.51 Long term (current) use of inhaled steroids; Z98.890 Other specified postprocedural states
CPT/HCPCS: 36415; 51701; 80053; 81001; 83735; 84484; 85025; 87502; 93005; 93010; 99285-25; A9270; C9803; J2405; U0002

== ENCOUNTER 2024-07-02 07:34 | Emergency (ER) | payer MEDICARE, OTHER ==
[~2024-07-02] VITALS: Ht 165.1 cm; Wt 48.2 kg
[2024-07-02] MEDS ORDERED: SODIUM CHLORIDE 0.9% 500 ML IV ONE (08:00)
[2024-07-02 08:30] LABS: BASOPHILS 0.6 % (0-2); EOSINOPHILS 1.5 % (0-6); HEMATOCRIT 32.9 % (35.0-50.0); HEMOGLOBIN 11.1 g/dL (12.0-18.0); LYMPHOCYTES 12.7 % (24-44); MCH 29.9 (27-36); MCHC 33.6 g/dl (30-36); MONOCYTES 6.5 % (0-12); NEUTROPHILS 78.7 % (39-80); PLATELET COUNT 323 K/uL (140-440); RDW 15.4 (10.5-15.0)
[2024-07-02 08:40] LABS: INR 2.83 (0.80-1.30); PROTIME 28.7 Sec (11.2-14.2)
[2024-07-02 08:45] LABS: ALBUMIN 3.1 g/dL (3.4-5.0); ALBUMIN/GLOBULIN RATIO 0.63 (1.1-2.4); ANION GAP 10.4 (7-21); BILIRUBIN, TOTAL 0.4 ng/dL (0.2-1.0); BUN/CREATININE RATIO 28.22 (6.0-28.6); CALCIUM 9.3 mg/dL (8.5-10.1); CREATININE, SERUM 1.24 mg/dL (0.55-1.02); POTASSIUM 3.4 mmol/L (3.5-5.1)
[2024-07-02 10:13] LABS: BILIRUBIN, URINE NEGATIVE (negative); BLOOD/HGB, URINE LARGE (Negative); KETONE, URINE NEGATIVE (Negative); LEUK ESTERASE, URINE SMALL (negative); NITRITE, URINE POSITIVE (negative); PH, URINE 5.5 (5-7)
[2024-07-02 10:33] LABS: BACTERIA, URINE 4+ /hpf (negative); CASTS, URINE NONE SEEN \\lpf; COLLECTION TYPE, URINE CLEAN CATCH; CRYSTALS, URINE NONE SEEN (0-1+); EPITHELIAL CELLS, URINE SQUAMOUS 3+ /lpf (0-1+); RED BLOOD CELLS, URINE 0-1 /hpf (0-5); REFLEX CULTURE, URINE No (No); WHITE BLOOD CELLS, URINE >50 /HPF (0-5)
[2024-07-02 11:37] VITALS: BP 135/40
== END 2024-07-02 11:37 | disposition home or self-care (01) ==
LOC: ED 07:34
PROVIDERS: Emergency Medicine
DX: R53.1 Weakness (principal); R63.4 Abnormal weight loss; Z68.1 Body mass index [BMI] 19.9 or less, adult; D64.9 Anemia, unspecified; N28.9 Disorder of kidney and ureter, unspecified; J44.9 Chronic obstructive pulmonary disease, unspecified; I48.91 Unspecified atrial fibrillation; Z88.1 Allergy status to other antibiotic agents; Z88.8 Allergy status to other drugs, medicaments and biological substances; Z88.2 Allergy status to sulfonamides
CPT/HCPCS: 36415; 71045; 80053; 81001; 85025; 85610; 99285-25; J7040

== ENCOUNTER 2024-11-01 08:30 | Emergency (ER) | payer MEDICARE, OTHER ==
[~2024-11-01] VITALS: Ht 165.1 cm; Wt 48.0 kg
[2024-11-01] MEDS ORDERED: SODIUM CHLORIDE 0.9% 1,000 ML IV ONE (09:00)
[2024-11-01] MEDS ORDERED: ALBUTEROL SULFATE 0.5% 2.5 MG/0.5 ML VIAL INH ONE (09:00)
[2024-11-01 09:03] LABS: BASOPHILS 0.3 % (0-2); EOSINOPHILS 0.5 % (0-6); HEMATOCRIT 35.3 % (35.0-50.0); HEMOGLOBIN 11.8 g/dL (12.0-18.0); LYMPHOCYTES 8.6 % (24-44); MCH 29.3 (27-36); MCHC 33.3 g/dl (30-36); MONOCYTES 9.8 % (0-12); NEUTROPHILS 80.8 % (39-80); PLATELET COUNT 383 K/uL (140-440); RBC 4.02 M/ul (4.3-5.7); RDW 13.7 (10.5-15.0)
[2024-11-01] MEDS ORDERED: ALBUTEROL SULFATE 0.083% 3 ML VIAL INH ONE (09:15)
[2024-11-01 09:24] LABS: ALBUMIN 2.8 g/dL (3.4-5.0); ALBUMIN/GLOBULIN RATIO 0.54 (1.1-2.4); ANION GAP 11.6 (7-21); BILIRUBIN, TOTAL 0.9 mg/dL (0.2-1.0); BUN/CREATININE RATIO 16.52 (6.0-28.6); CALCIUM 9.2 mg/dL (8.5-10.1); CREATININE, SERUM 1.21 mg/dL (0.55-1.02); POTASSIUM 3.6 mmol/L (3.5-5.1)
[2024-11-01 09:36] LABS: CORONAVIRUS COVID-19 AG NEGATIVE (NEGATIVE); INFLUENZA A AG NEGATIVE (NEGATIVE); INFLUENZA B AG NEGATIVE (NEGATIVE)
[2024-11-01] MEDS ORDERED: CEFTRIAXONE SODIUM 1 GM in SODIUM CHLORIDE 0.9% 100 ML IV ONE (10:00)
[2024-11-01 10:18] LABS: INR 3.67 (0.80-1.30); PROTIME 34.3 Sec (11.2-14.2)
[2024-11-01] MEDS ORDERED: METOPROLOL TARTRATE 5 MG/5 ML VIAL IV ONE (11:15)
[2024-11-01 11:55] LABS: BILIRUBIN, URINE NEGATIVE (negative); BLOOD/HGB, URINE MODERATE (Negative); KETONE, URINE NEGATIVE (Negative); LEUK ESTERASE, URINE SMALL (negative); NITRITE, URINE NEGATIVE (negative)
[2024-11-01 12:01] LABS: BACTERIA, URINE 4+ /hpf (negative); CRYSTALS, URINE NONE SEEN (0-1+); WHITE BLOOD CELLS, URINE 21-40 /HPF (0-5)
[2024-11-01 12:02] LABS: CASTS, URINE NONE SEEN \\lpf; COLLECTION TYPE, URINE CLEAN CATCH; REFLEX CULTURE, URINE Yes (No)
[2024-11-01] MEDS ORDERED: AMOX TR-K CLV1 EAC1 PO (12:37)
[2024-11-01 12:57] VITALS: BP 106/50
--- NOTE | 2024-11-02 17:47 | EKG ---
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 rate has increased BY 57 BPM Questionable change in initial forces of Septal leads ST now depressed in Lateral leads Confirmed by Ana Saravia DO ([id number]) on 11/02/2024 5:46:51 PM Electronically Signed By: ANA SARAVIA DO 11/02/24 1747 PATIENT NAME: OSCAR MARTINEZ Electrocardiogram DATE OF : 38 PHYSICIAN: ANA SARAVIA DO REPORT #: [id number] REPORT IS CONFIDENTIAL AND NOT TO BE RELEASED WITHOUT AUTHORIZATION
== END 2024-11-01 12:57 | disposition home or self-care (01) ==
LOC: ED 08:30
PROVIDERS: Emergency Medicine
DX: N39.0 Urinary tract infection, site not specified (principal); J18.9 Pneumonia, unspecified organism; I48.91 Unspecified atrial fibrillation; J44.9 Chronic obstructive pulmonary disease, unspecified; Z79.01 Long term (current) use of anticoagulants; Z79.899 Other long term (current) drug therapy; Z88.1 Allergy status to other antibiotic agents; Z88.8 Allergy status to other drugs, medicaments and biological substances; Z87.891 Personal history of nicotine dependence
CPT/HCPCS: 36415; 71045; 80053; 81001; 83880; 84484; 85025; 85610; 87088; 87502; 93005; 93010; 94640; 99284-25; J0696; J7030; U0002

== ENCOUNTER 2024-12-11 14:02 | Observation (INO) | payer MEDICARE, OTHER ==
[~2024-12-11] VITALS: Ht 165.1 cm; Wt 47.6 kg
[~2024-12-11 14:02] MED LIST changes: +AMOX TR-K CLV1 EAC1 PO; +VANCOCIN HCL125 MG PO
[2024-12-11 15:05] LABS: BASOPHILS 0.4 % (0.1-1.2); EOSINOPHILS 0.6 % (0.7-5.8); HEMATOCRIT 29.3 % (34.1-44.9); HEMOGLOBIN 9.5 g/dL (11.2-15.7); LYMPHOCYTES 14.2 % (19.3-51.7); MCH 28.8 PG (25.6-32.2); MCHC 32.4 g/dL (32.2-35.5); MCV 88.8 fL (79.4-94.8); MONOCYTES 6.8 % (4.7-12.5); NEUTROPHILS 77.7 % (34.0-71.1); PLATELET COUNT 323 K/uL (182-369)
[2024-12-11 15:12] LABS: PROTIME 65.8 Sec (11.2-14.2)
[2024-12-11 15:14] LABS: ALBUMIN 2.7 g/dL (3.4-5.0); ALBUMIN/GLOBULIN RATIO 0.59 (1.1-2.4); ANION GAP 8.3 (7-21); BILIRUBIN, TOTAL 0.4 mg/dL (0.2-1.0); BUN/CREATININE RATIO 17.75 (6.0-28.6); CREATININE, SERUM 1.07 mg/dL (0.55-1.02); POTASSIUM 3.3 mmol/L (3.5-5.1); PROTEIN, TOTAL 7.3 g/dL (6.4-8.2)
[2024-12-11 15:18] LABS: INR 8.58 (0.80-1.30)
[2024-12-11] MEDS ORDERED: PHYTONADIONE 1 MG in DEXTROSE 5% 50 ML IV ONE (15:30)
[2024-12-11] MEDS ORDERED: ACETAMINOPHEN 325 MG TAB PO PRN (19:00)
[2024-12-11] MEDS ORDERED: ondansetron HCL 4 MG/2 ML VIAL IV PRN (19:00)
--- NOTE | 2024-12-11 19:42 | NUR ---
RECEIVED REPORT FROM ED, TRANSPORTED PT TO ROOM 111. PT ALERT & ORIENTED, NO ACUTE DISTRESS OR PAIN. AMBULATED FROM STRETCHER TO BED. ALL POSSESSIONS BROUGHT WITH PT.
[2024-12-11] MEDS ORDERED: ALBUTEROL SULFATE 0.083% 3 ML VIAL INH PRN (19:45)
[2024-12-11 20:02] VITALS: BP 100/58; BP 123/75
--- NOTE | 2024-12-11 20:04 | NUR ---
PT ALERT ANDORIENTED, ADMITTED TO ROOM 111 FROM ER VIA STRETCHER. AMBULATED TO BR, NO C/O PAIN, PLACED ON ENTERIC CONTAT ISOLATION PRECAUTIONS. TEACHING DONE AND ORIENTED TO ROOM AND PROCEDURES, PLEASANT AND COOPERATIVE, [facility], HAS HEARING AIDS AT HOME
[2024-12-11] MEDS ORDERED: POTASSIUM CHLORIDE 10 MEQ TABCR PO ONE ×2 (20:15→22:30)
[2024-12-11] MEDS ORDERED: VANCOMYCIN HCL 125 MG CAP PO SCH (21:00)
[2024-12-11] MEDS ORDERED: METOPROLOL TARTRATE 50 MG TAB PO SCH (21:00)
[2024-12-11 21:23] LABS: BASOPHILS 0.4 % (0.1-1.2); EOSINOPHILS 0.6 % (0.7-5.8); HEMATOCRIT 25.3 % (34.1-44.9); HEMOGLOBIN 8.3 g/dL (11.2-15.7); LYMPHOCYTES 12.7 % (19.3-51.7); MCH 28.5 PG (25.6-32.2); MCHC 32.8 g/dL (32.2-35.5); MCV 86.9 fL (79.4-94.8); MONOCYTES 8.2 % (4.7-12.5); NEUTROPHILS 77.5 % (34.0-71.1); PLATELET COUNT 289 K/uL (182-369); RBC 2.91 M/uL (3.93-5.22)
[2024-12-11 21:53] LABS: ABO B; ANTIBODY SCREEN NEGATIVE; RH POSITIVE
--- NOTE | 2024-12-11 22:10 | NUR ---
ASSESSMENT, EVENING MEDS. ORIENTED PT TO PLAN OF CARE, INCLUIDNG Q4 VITALS AND CALLING TO GET OUT OF BED. PT AGREES WITH PLAN. PT REPORTS MILD GENERALIZED PAIN, THOUGH DECLINES ANY MEDICATIONS AT PRESENT. C/O SORENESS AT IV SITE, IV FLUSHING WELL WITH GOOD BLOOD RETURN. APPLIED HEAT BACK FOR DISCOMFORT. CALL LIGHT IN REACH, BED ALARM ACTIVE
--- NOTE | 2024-12-11 23:40 | NUR ---
RECEIVED REPORT FROM MARY FERRER. ASSUMING CARE OF THIS PT FOR REST OF NOC SHIFT. PT ASLEEP, APPEARS COMFORTABLE.
[2024-12-12 01:31] VITALS: BP 116/57
--- NOTE | 2024-12-12 01:34 | NUR ---
PT AWAKENED FOR VS. WARM BLANKET GIVEN PER REQUEST. DENIES NEEDS AT THIS TIME. CONTACT ENTERIC PRECAUTIONS IN PLACE.
[2024-12-12 01:35] VITALS: BP 116/57
--- NOTE | 2024-12-12 02:45 | NUR ---
ASSISTED PT TO BR, SBA. VOIDED AND HAD SMALL LOOSE BM-DARK BROWN. REPORTS MILD ABD PAIN, DENIES NAUSEA. CALL LIGHT WITHIN REACH.
[2024-12-12 05:06] VITALS: BP 103/50
--- NOTE | 2024-12-12 05:12 | NUR ---
PT SLEEPING SOUNDLY. APPEARS COMFORTABLE. CONTACT ENTERIC PRECAUTIONS CONTINUE.
[2024-12-12 05:13] VITALS: BP 103/50
[2024-12-12 05:33] LABS: BASOPHILS 0.4 % (0.1-1.2); EOSINOPHILS 1.3 % (0.7-5.8); HEMATOCRIT 26.6 % (34.1-44.9); HEMOGLOBIN 8.5 g/dL (11.2-15.7); LYMPHOCYTES 17.6 % (19.3-51.7); MCH 28.3 PG (25.6-32.2); MCV 88.7 fL (79.4-94.8); MONOCYTES 9.8 % (4.7-12.5); NEUTROPHILS 70.6 % (34.0-71.1); PLATELET COUNT 308 K/uL (182-369)
[2024-12-12 05:53] LABS: ALBUMIN 2.2 g/dL (3.4-5.0); ALBUMIN/GLOBULIN RATIO 0.55 (1.1-2.4); ANION GAP 6.8 (7-21); BILIRUBIN, TOTAL 0.6 mg/dL (0.2-1.0); BUN/CREATININE RATIO 15.55 (6.0-28.6); CALCIUM 8.3 mg/dL (8.5-10.1); CREATININE, SERUM 0.9 mg/dL (0.55-1.02); MAGNESIUM 1.8 mg/dL (1.8-2.4); PHOSPHORUS, INORGANIC 2.9 mg/dL (2.5-4.9); POTASSIUM 3.8 mmol/L (3.5-5.1); PROTEIN, TOTAL 6.2 g/dL (6.4-8.2)
[2024-12-12 06:10] LABS: INR 2.19 (0.80-1.30); PROTIME 23.4 Sec (11.2-14.2)
--- NOTE | 2024-12-12 07:12 | NUR ---
Pt note received from MARY Somers.
[2024-12-12] MEDS ORDERED: ALBUTEROL/IPRATROPIUM 3 ML NEB INH SCH (08:00)
[2024-12-12 09:08] VITALS: BP 138/45
[2024-12-12] MEDS ORDERED: FUROSEMIDE20 MG PO (10:01)
[2024-12-12] MEDS ORDERED: INCRUSE ELLI62.5 MCG INH (10:02)
[2024-12-12] MEDS ORDERED: PHARMACY RENAL DOSE ADJUSTMENT 1 DOSE MISC PO SCH (12:00)
--- NOTE | 2024-12-12 13:37 | NUR ---
medications reconiciled with pharmacy records and patient interview. Warfarin dosing is monitored by pharmacy
[2024-12-12] MEDS ORDERED: WARFARIN SOD 2.5 MG TAB PO ONE (14:30)
[2024-12-12 15:07] VITALS: BP 127/52
[2024-12-12] MEDS ORDERED: WARFARIN PER PHARMACY PROTOCOL PO SCH (16:00)
[2024-12-12] MEDS ORDERED: WARFARIN SOD 2.5 MG TAB PO SCH (16:00)
== END 2024-12-12 15:22 | disposition home or self-care (01) ==
LOC: ED 14:02 → MS 14:04
PROVIDERS: Emergency Medicine; ADMIT Family Medicine; ATTEND Family Medicine
DX: R79.1 Abnormal coagulation profile (principal); I48.91 Unspecified atrial fibrillation; E87.6 Hypokalemia; J47.9 Bronchiectasis, uncomplicated; B96.89 Other specified bacterial agents as the cause of diseases classified elsewhere; J44.9 Chronic obstructive pulmonary disease, unspecified; Z79.01 Long term (current) use of anticoagulants; Z79.899 Other long term (current) drug therapy; Z88.8 Allergy status to other drugs, medicaments and biological substances; Z88.2 Allergy status to sulfonamides; Z88.1 Allergy status to other antibiotic agents; Z66 Do not resuscitate; Z87.891 Personal history of nicotine dependence
CPT/HCPCS: 36415; 74177; 80053; 83735; 84100; 85025; 85610; 86850; 86900; 86901; 94640; 94667; 94760; 94799; 99285-25; A9270; G0378; J3430; Q9967

== ENCOUNTER 2025-02-10 09:29 | Emergency (ER) | payer MEDICARE, OTHER ==
[~2025-02-10] VITALS: Ht 165.1 cm; Wt 47.6 kg
[~2025-02-10 09:29] MED LIST changes: +DIFICID200 MG PO; +FUROSEMIDE20 MG PO
[2025-02-10 10:37] LABS: BASOPHILS 0.4 % (0.1-1.2); EOSINOPHILS 2.0 % (0.7-5.8); LYMPHOCYTES 9.3 % (19.3-51.7); MCH 28.9 PG (25.6-32.2); MCHC 31.8 g/dL (32.2-35.5); MCV 90.9 fL (79.4-94.8); MONOCYTES 6.3 % (4.7-12.5); NEUTROPHILS 81.8 % (34.0-71.1); RBC 3.18 M/uL (3.93-5.22)
[2025-02-10 10:59] LABS: ALT (SGPT) 18.0 U/L (14-59); AST (SGOT) 17.0 U/L (15-37); GLOMERULAR FILTRATION RATE,EST 57.0 mL/min (>60); PROTEIN, TOTAL 7.5 g/dL (6.4-8.2); UREA NITROGEN 20.0 mg/dL (7-18)
[2025-02-10 11:57] LABS: BLOOD/HGB, URINE MODERATE (Negative); KETONE, URINE NEGATIVE (Negative); LEUK ESTERASE, URINE LARGE (negative); NITRITE, URINE POSITIVE (negative)
[2025-02-10 12:04] LABS: BACTERIA, URINE 2+ /hpf (negative); CASTS, URINE NONE SEEN \\lpf; CRYSTALS, URINE NONE SEEN (0-1+); EPITHELIAL CELLS, URINE 0 /lpf (0-1+); REFLEX CULTURE, URINE Yes (No)
[2025-02-11 09:18] LABS: INR 2.7 (0.80-1.30); PROTIME 27.2 Sec (11.2-14.2)
[2025-02-11 17:18] VITALS: BP 121/75
[2025-02-11] MEDS ORDERED: METOPROLOL TARTRATE 50 MG TAB PO SCH (17:30)
== END 2025-02-11 17:37 | disposition short-term general hospital (02) ==
LOC: ED 09:29
PROVIDERS: Emergency Medicine
DX: G96.810 Intracranial hypotension, unspecified (principal); J44.9 Chronic obstructive pulmonary disease, unspecified; Z79.01 Long term (current) use of anticoagulants; Z79.899 Other long term (current) drug therapy; Z88.1 Allergy status to other antibiotic agents; Z88.8 Allergy status to other drugs, medicaments and biological substances; Z87.891 Personal history of nicotine dependence
CPT/HCPCS: 36415; 70551; 70552; 72156; 80053; 81001; 85025; 85610; 87088; 96365; 99285-25; A9573; J0696

== ENCOUNTER 2025-04-23 08:12 | Inpatient (IN) | payer MEDICARE, OTHER ==
[~2025-04-23] VITALS: Ht 165.1 cm; Wt 44.8 kg
[2025-04-23 09:17] LABS: BASOPHILS 0.3 % (0.1-1.2); EOSINOPHILS 0.4 % (0.7-5.8); LYMPHOCYTES 7.4 % (19.3-51.7); MCH 28.9 PG (25.6-32.2); MCHC 32.1 g/dL (32.2-35.5); MCV 89.9 fL (79.4-94.8); MONOCYTES 6.8 % (4.7-12.5); NEUTROPHILS 84.6 % (34.0-71.1); RBC 3.67 M/uL (3.93-5.22)
[2025-04-23 09:29] LABS: INR 2.28 (0.80-1.30); PROTIME 24.3 Sec (11.2-14.2)
[2025-04-23 09:33] LABS: CORONAVIRUS COVID-19 AG NEGATIVE (NEGATIVE)
[2025-04-23 09:44] LABS: ALT (SGPT) 10.0 U/L (14-59); AST (SGOT) 11.0 U/L (15-37); GLOMERULAR FILTRATION RATE,EST 50.0 mL/min (>60); PROTEIN, TOTAL 7.2 g/dL (6.4-8.2); UREA NITROGEN 26.0 mg/dL (7-18)
[2025-04-23] MEDS ORDERED: FUROSEMIDE 100 MG/10 ML VIAL IV ONE (10:00)
[2025-04-23] MEDS ORDERED: POTASSIUM CHLORIDE 10 MEQ TABCR PO ONE (10:00)
--- NOTE | 2025-04-23 11:42 | EKG ---
[facility] [address] 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
[2025-04-23] MEDS ORDERED: PROCHLORPERAZINE EDISYLATE 10 MG/2 ML VIAL IV PRN (18:30)
[2025-04-23] MEDS ORDERED: ACETAMINOPHEN 325 MG TAB PO PRN (18:30)
[2025-04-23 19:48] VITALS: BP 103/58
--- NOTE | 2025-04-23 20:00 | NUR ---
REPORT RECEIVED FROM CONDUCTOR AND ENGINEER. pt BROUGHT TO THE FLOOR BY THIS RN. pt ABLE TO SCOOT HERSELF OVER FROM THE ER BED. ASSESSMENT AND ADMISSION DONE. TELE #1 ON. WATER GIVEN. pt DENIES ANY OTHER NEEDS AT THIS TIME. CALL LIGHT WITHIN REACH.
[2025-04-23] MEDS ORDERED: ALBUTEROL SULFATE 0.083% 3 ML VIAL INH SCH (20:16)
[2025-04-23] MEDS ORDERED: ARFORMOTEROL TARTRATE 15 MCG/2 ML VIAL INH SCH (20:16)
[2025-04-23] MEDS ORDERED: METOPROLOL TARTRATE 50 MG TAB PO SCH (21:00)
[2025-04-23] MEDS ORDERED: MELATONIN 3 MG TAB PO PRN (21:00)
--- NOTE | 2025-04-23 21:07 | NUR ---
PT ADMITTED TO [place] [address] AT 1938 FROM ER VIA STRETCHER, ABLE TO TRANSFER WELL. LANE Santos MOVEMENT. TELE#1 PLACED PER ORDERS. ALLEVYN TO RED AND SCABBED OVER UPPER LOWER BACK BONY AREA. RED PERIAREA, PT ON ROOM AIR. COOPERATIVE WITH ADMIT ASSESSMENTS QUESTIONS AND VITALS, HELPEFULW ITH REPOSITIONING, AWARE THAT WE MAY PLACE PURWICK IN SHE IS INCONTINENT/DRIBBLES AT TIMES. SKIN DRY SCALY. PT WEARS MARLENE AND HAS ORAL BRIDGE IN PLACE, HEARING AIDS AT HOME. SL PATENT LFA. FAMILY AT BEDSIDE.
--- NOTE | 2025-04-23 21:10 | NUR ---
SCHEDULED MEDS ADMINISTERED. pt FAMILY VISITING. pt DENIES ANY OTHER NEEDS AT THIS TIME. CALL LIGHT WITHIN REACH.
--- NOTE | 2025-04-23 23:16 | NUR ---
PATIENT ARRIVED AND NURSES BEGAN TO TAKE PATIENTS VITAL SIGNS. DEANNA HERNANDEZ ASSISTED WITH TRANSFERING PATIENT INTO BED AND DRESSING HER. DEANNA HERNANDEZ LEFT THE ROOM NURSES WERE FINISHING UP TAKING CARE OF PATIENT, CALL LIGHT LEFT WITHIN REACH.
--- NOTE | 2025-04-23 23:39 | NUR ---
pt CALLED TO USE THE BR. pt SBA TO THE BSC. pt HR UP TO 140'S WHILE SHE WAS STANDING BUT IT WAS NOT SUSTAINED. pt REMAINED IN THE 110' TO 120'S ON THE BSC. pt BACK TO BED AND HR BACK TO THE 90'S. pt DENIES ANY OTHER NEEDS AT THIS TIME. CALL LIGHT WITHIN REACH.
[2025-04-24] VITALS (14 sets, daily range): BP systolic 90–143; BP diastolic 50–66
--- NOTE | 2025-04-24 01:48 | NUR ---
HISTOLOGIST TECHNOLOGIST IN TO DO VITAL SIGNS. pt RESTING IN THE BED. pt DENIES ANY OTHER NEEDS AT THIS TIME. CALL LIGHT WITHIN REACH.
--- NOTE | 2025-04-24 02:06 | NUR ---
DEANNA HERNANDEZ WALKED INTO PATIENTS ROOM TO MEASURE PATIENTS V.S. AND I&O'S. DEANNA HERNANDEZ REFILLED PATIENTS WATER CUP AND RECORDED MEASUREMENTSW. DEANNA HERNANDEZ RETOOK PATIENTS BP DUE TO A LOW READING. THE SECOND BP READING WAS MUCH MORE ACCURATE. PATIENT LEFT WITH CALL LIGHT WITHIN REACH, NO FURTHER NEEDS.
--- NOTE | 2025-04-24 03:36 | NUR ---
pt REQUESTED A SNACK. SANDWICH BOX PROVIDED. pt SITTING UP IN THE BED EATING. pt DENIES ANY NEEDS AT THIS TIME. CALL LIGHT WITHIN REACH.
--- NOTE | 2025-04-24 03:52 | NUR ---
THIS RN WENT TO TO CHECK ON pt. pt HR UP TO 143 ON THE TELE MONITOR. pt DENIES ANY SYMPTOMS. VITAL SIGNS TAKEN. VSS. pt DENIES ANY OTHER NEEDS AT THIS TIME. HR BACK DOWN TO THE 110'S. CALL LIGHT WITHIN REACH.
[2025-04-24 05:12] LABS: BASOPHILS 0.1 % (0.1-1.2); EOSINOPHILS 0 % (0.7-5.8); LYMPHOCYTES 4.0 % (19.3-51.7); MCH 28.4 PG (25.6-32.2); MCHC 32.4 g/dL (32.2-35.5); MCV 87.4 fL (79.4-94.8); MONOCYTES 1.6 % (4.7-12.5); NEUTROPHILS 94.0 % (34.0-71.1); RBC 3.88 M/uL (3.93-5.22)
[2025-04-24 05:24] LABS: GLOMERULAR FILTRATION RATE,EST 33.0 mL/min (>60); UREA NITROGEN 37.0 mg/dL (7-18)
--- NOTE | 2025-04-24 05:56 | NUR ---
in rm to do vital signs. PT daily weight. PT denies any other needs at this time. call light within reach.
--- NOTE | 2025-04-24 06:43 | NUR ---
osman placed on PT due to the fact that her HR went up to the 160's while trasfering to the bsc. PT denies any symptoms. PT denies any other needs at this time. call light within reach.
--- NOTE | 2025-04-24 07:07 | NUR ---
Pt report received from MARY Benoit. Pt is resting supine in bed, eyes closed, breathing is regular, even, and non-labored. Call light in reach, side rails up x4.
--- NOTE | 2025-04-24 07:33 | NUR ---
PATIENT IN BED AT THIS TIME. PUNCH PRESS SETTER CHARTED HOURLY ROUNDS, PATIENT AGREED TO GET INTO CHAIR AFTER BREAKFAST. CALL LIGHT WITHIN REACH, NO FURTHER NEEDS.
--- NOTE | 2025-04-24 07:35 | NUR ---
Received a verbal order from Dr. Powell while asking him about this patient's metoprolol. Dr. Powell ordered to stop lasix, and start spironolactone 25mg QD. He also advised to let him know what her VS are this morning before administering metoprolol but that he will probably have us administer it anyway if her BP are soft as he wants it to bring down her HR. Repeated back the order for confirmation.
--- NOTE | 2025-04-24 08:40 | NUR ---
VS assessed prior to med administration as she receives metoprolol. Her pulse was 89 and her BP was [address] Powell at his request of the updated BP and pulse and he advised to administer the metoprolol. This was done.
[2025-04-24] MEDS ORDERED: FUROSEMIDE 20 MG TAB PO SCH (09:00)
[2025-04-24] MEDS ORDERED: SPIRONOLACTONE 25 MG TAB PO SCH (09:00)
--- NOTE | 2025-04-24 09:47 | NUR ---
PATIENT IN BED AT THIS TIME. INTENSIVE CARE MEDICINE SPECIALIST CHARTED VITALS AND I&O'S. CALL LIGHT WITHIN REACH, NO FRUTHER NEEDS.
--- NOTE | 2025-04-24 10:35 | NUR ---
PATIENT IN BED AT THIS TIME. PAYROLL ACCOUNTANT OFFERED PATIENT SHOWER OR BED BATH, PATIENT AGREED TO BED BATH AT 1430. CALL LIGHT WITHIN REACH, NO FURTHER NEEDS AT THIS TIME.
[2025-04-24] MEDS ORDERED: PHARMACY RENAL DOSE ADJUSTMENT 1 DOSE MISC PO SCH (12:00)
--- NOTE | 2025-04-24 14:42 | NUR ---
PATIENT IN BED AT THIS TIME. THIS INTEGRATION ASSISTANT AND INTEGRATION ASSISTANT MARC GAVE PATIENT BED BATH, NEW GOWN, AND PLACED NEW [place]. PATIENTS BREIF WAS DRY, RN NOTIFIED OF PATIENTS OUTPUT. CALL LIGHT WITHIN REACH, NO FURTHER NEEDS.
--- NOTE | 2025-04-24 16:18 | NUR ---
PATIENT IN BED AT THIS TIME. HATCH SUPERVISOR CHARTED HOURLY ROUNDS. CALL LIGHT WITHIN REACH, NO FURTHER NEEDS.
--- NOTE | 2025-04-24 18:15 | NUR ---
Pt has remained in bed this shift and is able to adjust her position in bed as needed/desired for comfort. A waffle overlay was placed on the mattress to further protect her bony prominences. Allyvn is still on her back, covering the pressure sore there. Pt was able to pivot transfer to [facility] [place] 2P SBA to void a total of 200ml after a bladder scan revealed approximately 290ml. PVR revealed greater than 175ml left in the bladder. Pt states she can only pee if she is sitting on the toilet or commode but thought she was told she couldn't get up to the commode. Reinforced importance of letting staff know if she feels the need to void and we will assist her to the commode. Pt verbalized understanding. Pt states she has not drank much water (only 600ml this shift). Pt has had visitors throughout the shift. The highest her heart rate has been (with visitors in the room while she rested in bed, talking) was 145 with no symptoms.
--- NOTE | 2025-04-24 20:24 | NUR ---
PATIENT CALLED REQUESTING TO USE THE BATHROOM. THIS RN IN ROOM AND ASSISTED PATIENT UP TO BEDSIDE COMMODE. PATIENT REQUESTING "A FEW MINUTES HERE". PATIENT STATES SHE WILL CALL WHEN SHE IS FINISHED. CALL LIGHT AND PERSONAL BELONGINGS ARE WITHIN REACH.
--- NOTE | 2025-04-24 20:40 | NUR ---
Patient awake, alert and oriented x3, no acute distress. Patient up to bedside commode to void then back to bed. Vital signs are stable, afebrile. Patient denies shortness of breath/chest pain. Heart rate trending 80's per tele/afib. Patient denies further needs. Bed alarm intact.
[2025-04-24] MEDS ORDERED: ENOXAPARIN SODIUM 80 MG/0.8 ML SYR SUB-Q SCH (21:00)
[2025-04-25] VITALS (10 sets, daily range): BP systolic 100–148; BP diastolic 46–63
--- NOTE | 2025-04-25 02:19 | NUR ---
DEANNA HERNANDEZ HELPED MEASURE PATIENTS V.S. AND I&O'S. WHEN DEANNA HERNANDEZ ASKED PATIENT IF SHE HAD ANY FURTHER NEEDS PATIENT ASKED FOR A SANDWICH FOR A QUICK SNACK. DEANNA HERNANDEZ REPORTED THIS TO HER NURSE, NO FURTHER NEEDS, CALL LIGHT LEFT WITHIN REACH.
--- NOTE | 2025-04-25 04:10 | NUR ---
Patient resting in bed, eyes closed, respirations non labored. Patient has no notable distress. Bed in low position, alarm intact.
[2025-04-25 05:03] LABS: BASOPHILS 0.1 % (0.1-1.2); EOSINOPHILS 0 % (0.7-5.8); LYMPHOCYTES 6.6 % (19.3-51.7); MCH 28.8 PG (25.6-32.2); MCHC 32.0 g/dL (32.2-35.5); MCV 90.0 fL (79.4-94.8); MONOCYTES 2.0 % (4.7-12.5); NEUTROPHILS 90.8 % (34.0-71.1); RBC 3.61 M/uL (3.93-5.22)
[2025-04-25 05:20] LABS: ALT (SGPT) 11.0 U/L (14-59); AST (SGOT) 7.0 U/L (15-37); GLOMERULAR FILTRATION RATE,EST 46.0 mL/min (>60); PROTEIN, TOTAL 7.2 g/dL (6.4-8.2); UREA NITROGEN 37.0 mg/dL (7-18)
--- NOTE | 2025-04-25 05:46 | NUR ---
Used call light, Up to BSC, voided, standing weight 44.3KG. Back to bed. tolerated well, tele#[address]
--- NOTE | 2025-04-25 07:05 | NUR ---
Pt report received from MARY Hines
--- NOTE | 2025-04-25 09:56 | NUR ---
PT AMBULATED TO THE TOILET. PT'S HEART RATE INCREASED TO APPROX. 150. PT REPORTED NO DIZZINESS OR RACING HEART FEELING. 1 PA AND USE OF WALKER THE ENTIRE AMBULATION. ORAL CARE AND AM CARE COMPLETED. TRASH REMOVED. PT'S BRIEF CHANGED.
--- NOTE | 2025-04-25 10:30 | NUR ---
Pt ambulated using FWW into the bathroom to void, DEANNA Waggoner with pt. Pt had no symptoms until she stood at the bathroom sink for a moment, then she started to feel lightheaded. Pt back to bed.
[2025-04-25] MEDS ORDERED: IPRATROPIUM BRO15 ML NAS (10:33)
[2025-04-25] MEDS ORDERED: FLUTICASONE PRO16 GM NAS (10:33)
--- NOTE | 2025-04-25 10:50 | NUR ---
MED REC COMPLETE
--- NOTE | 2025-04-25 11:36 | NUR ---
Pt ambulating the hallway using FWW with second RN following with a wheelchair. Pt tolerated ambulating approximately 100ft without complaint. Once she was back at bedside, she stated that now she is starting to feel a little woozy but "not too bad" and was able to finish ambulating to the side of the bed and get back in to bed. Her skin color remained appropriate. Her heart rate remained in the 120s while ambulating until we arrived back at the door, then it elevated as high at 165, then dropped back down in to the 140s, then 120s. Currently her HR is 80. Notified Dr. Powell of this activity.
--- NOTE | 2025-04-25 12:17 | NUR ---
Dr. Powell in with pt, pt's spouse, and pt's daughter to discuss and update the family on plan of care.
--- NOTE | 2025-04-25 18:44 | NUR ---
In with pt for increased heart rate (198). Pt is up in the bathroom with Blanche Rosaline, standing at the sink. Pt reports she is feeling okay, that she was just getting ready to go back to bed. Advised her that it is important for her to make her way back into bed now because her heart rate has elevated significantly. She verbalizes understanding and was assisted back to bed into a position of comfort. I noted that the allyvn I had placed on the reddened area on the back had come off (Rosaline advised she had found it in the pt's bed while the pt was toileting). I placed a new allyvn on the area on the pt's back.
--- NOTE | 2025-04-25 18:47 | NUR ---
Pt's heart rate after returning to bed and resting is down to 106 at this time. It has ranged from 60s to 90s throughout this shift.
--- NOTE | 2025-04-25 18:49 | NUR ---
PT RESTING IN BED FOLLOWING USING THE TOILET. CALL LIGHT WITHIN REACH.
--- NOTE | 2025-04-25 18:50 | NUR ---
PT AMBULATED TO TOILET FROM BED. FOLLOWING URINATION PT WASHED HANDS AND PERFORMED ORAL CARE. PT'S RN CAME IN, PT'S HEART RATE WAS CLIMBING, PT REPORTS FEELING NO DIZZINESS, BUT GETS TIRED. THIS TREE TAPPING LABORER NOTICED SORE ON PT'S BACK, REPORTED TO PT'S RN. BROUGHT PT WARM WASH CLOTH ONCE BACK IN BED, AND PT WASHED OFF FACE AND HANDS. PLACED PILLOW UNDER PT'S KNEES REQUESTED. PT HAS FRESH ICE WATER NEXT TO BED AND CALL LIGHT ON BED NEXT TO PT. PT REPORTS NEEDING NOTHING MORE AT THIS TIME.
--- NOTE | 2025-04-25 19:53 | NUR ---
Patient awake, alert and oriented x3, no acute distress. Patient's heart per tele-afib, heart rate 80's. Patient denies pain. No current needs, personal supplies and call light within reach.
[2025-04-25] MEDS ORDERED: ALBUTEROL SULFATE 0.083% 3 ML VIAL INH PRN (20:00)
[2025-04-25] MEDS ORDERED: ENOXAPARIN SODIUM 80 MG/0.8 ML SYR SUB-Q SCH (21:00)
--- NOTE | 2025-04-25 22:46 | NUR ---
PT CALLED FOR HELP TO BR, VOIDED ON BSC AND HELPED BACK TO BED. PT REQUESTED LOTION AND WAS PROVIDED WITH IT.
[2025-04-26] VITALS (14 sets, daily range): BP systolic 101–127; BP diastolic 46–68
--- NOTE | 2025-04-26 00:16 | NUR ---
REPORT RECIEVED FROM MARY OSBORNE. PATIENT RESTING IN BED ON HER BACK WITH HER EYES CLOSED. EVEN AND UNLABORED RESPIRATIONS NOTED. CALL LIGHT AND PERSONAL BELONGINGS ARE WITHIN REACH.
--- NOTE | 2025-04-26 01:57 | NUR ---
PATIENT CALLED TO USE THE COMMODE. 1PA/SBA. PATIENT VOIDED 350ML CLEAR LIGHT YELLOW URINE. PATIENT BACK IN BED. V/S AND I&O'S COMPLETED. ORANGE JUICE PROVIDED PER PATIENT'S REQUEST. ICE WATER REFRESHED.
--- NOTE | 2025-04-26 02:23 | NUR ---
PATIENT RESTING IN BED ON HER PHONE WITH HOB ELEVATED. PATIENT WITHOUT ANY NEEDS AT THIS TIME. CALL LIGHT AND PERSONAL BELONGINGS ARE WITHIN REACH.
--- NOTE | 2025-04-26 04:32 | NUR ---
PATIENT RESTING IN BED ON HER BACK WITH HER EYES CLOSED. HOB ELEVATED. EVEN AND UNLABORED RESPIRATIONS NOTED. CALL LIGHT AND PERSONAL BELONGINGS ARE WITHIN REACH.
[2025-04-26 05:28] LABS: BASOPHILS 0.1 % (0.1-1.2); EOSINOPHILS 0 % (0.7-5.8); LYMPHOCYTES 5.3 % (19.3-51.7); MCH 28.7 PG (25.6-32.2); MCHC 32.3 g/dL (32.2-35.5); MCV 89.0 fL (79.4-94.8); MONOCYTES 3.5 % (4.7-12.5); NEUTROPHILS 90.6 % (34.0-71.1); RBC 3.55 M/uL (3.93-5.22)
--- NOTE | 2025-04-26 05:33 | NUR ---
PATIENT UP WITH DEANNA CANNON. PATIENT WITHOUT ANY NEEDS FROM THIS RN AT THIS TIME.
[2025-04-26 05:50] LABS: GLOMERULAR FILTRATION RATE,EST 54.0 mL/min (>60); UREA NITROGEN 38.0 mg/dL (7-18)
--- NOTE | 2025-04-26 07:00 | NUR ---
Pt report received from MARY Villagomez. Pt is resting in bed with HOB elevated to a position of comfort. Assessment done at this time. Allyvn to mid back. Pt denies needs at this time. White board updated. Side rails up x3, call light in reach.
--- NOTE | 2025-04-26 09:30 | NUR ---
VISITED PT TO VERIFY AMISH PREFERENCE AND TO INQUIRE IF HOUSEKEEPING/LAUNDRY VISIT IS DESIRED. PT VERIFIED PRESYBETERIAN MEMBERSHIP, INDICATED HOUSEKEEPING/LAUNDRY VISIT WOULD BE WELCOME. RELAYED PT REPSENCE AND OPENNESS TO VISIT TO [facility] VIA NOT IN SACRISTRY.
--- NOTE | 2025-04-26 10:19 | NUR ---
AM CARE COMPLETED, GOT PT WARM WASH CLOTH FOR FACE AND HANDS. GOT PT FRESH ICE WATER. TOOK OUT TRASH AND PICKED UP ROOM. ONE VISITOR IN ROOM CURRENTLY. CALL LIGHT WITHIN REACH, PT REPORTS NEEDING NOTHING MORE AT THIS TIME.
[2025-04-26] MEDS ORDERED: METOPROLOL SUCCINATE 25 MG TABCR PO ONE (11:45)
--- NOTE | 2025-04-26 12:08 | NUR ---
INTO SEE PATIENT. PERSONAL HEALTH INFORMATION REVIEWED. PATIENT LIVES AT HOME WITH . NO STEPS INTO THE HOME. PATIENT USES A WALKER AND A CANE. PATIENT DOES NOT USE OXYGEN OR CPAP. DRIVES. PATIENT DENIES DIFFCULTY UTLITIES OR OBTAINING FOOD. IMM LETTER COMPLETED. NO FUTHER CM NEEDS.
--- NOTE | 2025-04-26 12:51 | NUR ---
UR CLINICAL REVIEW: 2MN VINCE, MEETS INPT FOR CHF ECHO NEEDS READ, DIURESE, MANAGE MEDICATIONS, TACHYCARDIC PERIODS. MEDICARE INPT 04/23/2025 @ 1821 ORDER MATCHES REG NO AUTH REQUIRED PER MEDICARE RULES PLAN TO DC TO HOME WHEN MEDICALLY READY
--- NOTE | 2025-04-26 13:22 | NUR ---
DC REVIEW: ECHO PENDING, NEED RESULTS FOR DC PLANNING, DIURESING, CONTINUES WITH TACHYCARDIC EPISODES OF AFIB RVR, MANAGING MEDICATIONS DC TO HOME WHEN MEDICALLY READY ADD: 04/27-04/28/2025
--- NOTE | 2025-04-26 14:00 | NUR ---
PATIENT UP TO BATHROOM TO , BACK TO BED WITH 1PA AND FWW. PATIENT IS STEADY ON HER FEET. NO NEEDS AT THIS TIME.
--- NOTE | 2025-04-26 18:05 | NUR ---
In with pt for assessment as her tele was showing heart rate up into the 130s. Pt is sitting on the toilet, having a bowel movement, denies any symptoms. DEANNA Waggoner in room as well.
--- NOTE | 2025-04-26 18:30 | NUR ---
PT AMBULATED TO THE TOILET. PT REPORTED NO DIZZINESS. RN CAME IN DUE TO AN INCREASED HEART RATE. PT CONTINUED TO REPORT FEELING "FINE" AND NO DIZZINESS. GOT PT WARM WASH CLOTH SO SHE COULD WASH FACE AND HANDS. GOT PT FRESH ICE WATER AND TOOK OUT ROOM TRASH. PT HAS CALL LIGHT.
--- NOTE | 2025-04-26 18:38 | NUR ---
In with pt to assist her to the toilet for another BM. Pt states that "Rosaline said I should wait until my heart rate comes down". I had not been notified, or noted that her heart rate was elevated to a concerning level upon entering the room and her current rate while resting in bed is 88. SBA as pt ambulated to the toilet using FWW with no c/o symptoms of any sort. She denies feeling weaker or tired as well. Pt states she will request Diet Assistant allow her to use the BSC if she continues to have frequent BMs. Pt is aware of the call light in the restroom.
--- NOTE | 2025-04-26 20:46 | NUR ---
Pt in bed, helped repositioning. On room air lungs clear bilat, no cough. Heart rate Irregular, murmur present, Tele#[address] afib. Denies CP or SOB. "I feel better and Amilcar stronger" stated. abd soft. firm LBM today, has had several . SL LFA patent. took meds w/o problems. Allevyn to low upper back . Much improved, less redness and scab has fallen off, healing, no drainage. red spencer, Barrier cream encouraged to use when up to BSC. stated ok. HOB elevated to comfort. denies need for pain meds
[2025-04-26] MEDS ORDERED: ENOXAPARIN SODIUM 40 MG/0.4 ML SYR SUB-Q SCH (21:00)
--- NOTE | 2025-04-26 21:30 | EKG ---
[facility] [address] 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
[2025-04-27] VITALS (7 sets, daily range): BP systolic 108–117; BP diastolic 46–59
--- NOTE | 2025-04-27 01:18 | NUR ---
RESTING, EYES CLOSED, ON ROOM AIR, HOB ELEVATED TO COMOFRT. NO S/SX DISTRESS.
--- NOTE | 2025-04-27 03:37 | NUR ---
PT CALLED TO USE RESTROOM. ASSISTED PT TO BR, AND BACK TO BED. REFILLED WATER, CALL LIGHT IN REACH.
[2025-04-27 05:16] LABS: BASOPHILS 0 % (0.1-1.2); EOSINOPHILS 0 % (0.7-5.8); LYMPHOCYTES 4.6 % (19.3-51.7); MCH 28.6 PG (25.6-32.2); MCHC 31.9 g/dL (32.2-35.5); MCV 89.8 fL (79.4-94.8); MONOCYTES 1.8 % (4.7-12.5); NEUTROPHILS 93.1 % (34.0-71.1); RBC 3.84 M/uL (3.93-5.22)
[2025-04-27 05:26] LABS: GLOMERULAR FILTRATION RATE,EST 56.0 mL/min (>60); UREA NITROGEN 38.0 mg/dL (7-18)
--- NOTE | 2025-04-27 07:44 | NUR ---
REPORT RECEIVED FROM ANNEMARIE HERNANDEZ. PATIENT IN BED, DENIES CONCERNS. CALL LIGHT AND PERSONAL BELONGINGS IN REACH OF PATIENT.
--- NOTE | 2025-04-27 07:55 | NUR ---
IN TO DO MORNING ROUNDS. PATIENT UP TO BATHROOM AND BACK TO BED, SBA FWW. PATIENT DID NOT WANT TO SIT IN CHAIR AT THIS TIME. WHITE BOARD UPDATED. AM AND ORAL CARE SUPPLLIES PROVIDED. CALL LIGHT IN REACH. NO FURTHER NEEDS AT THIS TIME.
[2025-04-27] MEDS ORDERED: METOPROLOL TARTRATE 50 MG TAB PO SCH (09:00)
[2025-04-27] MEDS ORDERED: METOPROLOL TARTRATE 25 MG TAB PO SCH (09:00)
--- NOTE | 2025-04-27 09:15 | NUR ---
ALERT AND ORIENTED IN BED. STATES SHE IS READY TO GO HOME WHENVER THE DOCTOR TELLS HER SHE IS READY. NO CM NEEDS. WILL GO HOME WITH SPOUSE.
--- NOTE | 2025-04-27 09:26 | NUR ---
PATIENT IN BED. ASSESSMENT AND SCHEDULED MEDICATIONS COMPLETED. PATIENT DENIES CONCERNS. CALL LIGHT AND PERSONAL BELONGIGNS IN REACH OF PATIENT.
--- NOTE | 2025-04-27 09:48 | NUR ---
PATIENT UP TO BATHROOM AND BACK TO BED, SBA FWW. VITALS AND I&O'S DONE AND CHARTED. PATIENT DID AM CARE AND ORAL CARE AT SINK. CALL LIGHT IN REACH. NO FURTHER NEEDS AT THIS TIME.
--- NOTE | 2025-04-27 10:25 | NUR ---
PATIENT IN BED, AT BEDSIDE. CALL LIGHT AND PERSONAL BELONGINGS IN REACH OF PATIENT. PATIENT DENIES CONCERNS.
--- NOTE | 2025-04-27 11:24 | NUR ---
PT NOT AVAILABLE FOR VISIT. PROVIDED PRAYER.
--- NOTE | 2025-04-27 11:48 | NUR ---
PATIENT IN BED, AT BEDSIDE. CALL LIGHT AND PERSONAL BELONGINGS IN REACH OF PATIENT.
[2025-04-27 12:11] LABS: INR 1.9 (0.80-1.30); PROTIME 20.6 Sec (11.2-14.2)
[2025-04-27] MEDS ORDERED: METOPROLOL TART50 MG PO (13:02)
[2025-04-27] MEDS ORDERED: SPIRONOLACTONE25 MG PO (13:02)
--- NOTE | 2025-04-27 13:10 | NUR ---
PATIENT IN BED, AT BEDSIDE. CALL LIGHT AND PERSONAL BELONGINGS IN REACH OF PATIENT.
[2025-04-27] MEDS ORDERED: WARFARIN SOD 5 MG TAB PO SCH (14:00)
--- NOTE | 2025-04-27 14:02 | NUR ---
DISCUSSED DISCHARGE INSTRUTIONS IN WITH PT AND SPOUSE INCLUDING PATIENT CHF EDUCATION PACKET. PT VERBALIZES UNDERSTANDING AND DEMONSTRATES TEACH BACK ON CHF TEACHING. TELEMETRY REMOVED. IV REMOVED, TIP INTACT, GAUZE AND COBAN DRESSING APPLIED TO SITE, PT TOLERATED WELL. PT AMBULATES IN ROOM TO BATHROOM WITH SBA, TOLERATES THIS WELL, DENIES DIZZINESS. DRESSES SELF. DRESSING TO BACK REMAINS C/D/I. EXTRA FOAM DRESSING SENT WITH PT. PT VOIDS CLEAR YELLOW URINE IN TOILET. PT LEAVES MED-SURG VIA WHEELCHAIR WITH BELONGINGS, CLOTHES, PURSE, CELL PHONE, SPACE SYSTEMS OPERATIONS SUPERINTENDENT AND PLANT. PT ESCORTED BY THIS RN TO PRIVATE CAR DRIVEN BY SPOUSE.
[2025-04-27] MEDS ORDERED: WARFARIN PER PHARMACY PROTOCOL PO SCH (16:00)
== END 2025-04-27 14:02 | disposition home or self-care (01) | DRG 309 ==
LOC: ED 08:12 → MS 18:34
PROVIDERS: Emergency Medicine; Family Medicine; ADMIT Internal Medicine; ATTEND Internal Medicine
DX: I48.0 Paroxysmal atrial fibrillation (principal); N17.9 Acute kidney failure, unspecified; I35.0 Nonrheumatic aortic (valve) stenosis; I48.92 Unspecified atrial flutter; Z66 Do not resuscitate; D72.829 Elevated white blood cell count, unspecified; I50.9 Heart failure, unspecified; J44.9 Chronic obstructive pulmonary disease, unspecified; Z87.19 Personal history of other diseases of the digestive system; Z87.891 Personal history of nicotine dependence; Z90.49 Acquired absence of other specified parts of digestive tract; Z87.81 Personal history of (healed) traumatic fracture; Z98.890 Other specified postprocedural states; Z79.899 Other long term (current) drug therapy; Z88.2 Allergy status to sulfonamides; Z88.8 Allergy status to other drugs, medicaments and biological substances; Z88.1 Allergy status to other antibiotic agents; Z79.01 Long term (current) use of anticoagulants; Z79.51 Long term (current) use of inhaled steroids; Z79.890 Hormone replacement therapy
CPT/HCPCS: 36415; 51798; 71045; 80048; 80053; 83735; 83880; 84484; 85025; 85610; 93005; 93010; 93306; 96374; 99285-25; A9270; J1650; J1938; J2919

== ENCOUNTER 2025-06-02 08:57 | Inpatient (IN) | payer MEDICARE, OTHER ==
[2025-06-02] VITALS (8 sets, daily range): BP systolic 87–107; BP diastolic 47–66
[~2025-06-02] VITALS: Ht 165.1 cm; Wt 44.8 kg
[~2025-06-02 08:57] MED LIST changes: +FLUTICASONE PRO16 GM NAS; +IPRATROPIUM BRO15 ML NAS; +SPIRONOLACTONE25 MG PO
--- OUTSIDE RECORDS SUMMARY | 2025-06-02 09:03 | XMS ---
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 - 2 Visits in 30 Days CARE PROVIDERS DIANE [facility]: Pulmonary Disease Current HERNAN Crisostomo PHONE: Unknown Josh has no Care Guidelines for this patient. [facility] VISIT COUNT (12 MO.) [address] [place], [place] [address]Sundar TOTAL 7 NOTE: Visits indicate total known visits. ED/C VISIT TRACKING (12 MO.) 06/02/2025 08:57 [facility] TYPE: Emergency COMPLAINT: - SHORTNESS OF BREATH 05/04/2025 11:25 [facility] TYPE: Emergency DIAGNOSES: - Chronic obstructive pulmonary disease, unspecified - Heart failure, unspecified - Nonrheumatic aortic (valve) stenosis - Dizziness - short of breath - Shortness of Breath 04/23/2025 08:13 [facility] TYPE: Emergency COMPLAINT: - SHORTNESS OF BREATH 02/10/2025 09:30 [facility] TYPE: Emergency COMPLAINT: - VISUAL CHANGES DIAGNOSES: - Allergy status to other antibiotic agents - Allergy status to other drugs, medicaments and biological substances - Chronic obstructive pulmonary disease, unspecified - Dizziness and giddiness - Intracranial hypotension, unspecified - cafe worker (current) use of anticoagulants - Other prison (current) drug therapy - Personal history of nicotine dependence 12/11/2024 14:03 [facility] TYPE: Emergency COMPLAINT: - RECTAL BLEEDING 11/01/2024 08:31 [facility] TYPE: Emergency COMPLAINT: - DIZZNESS DIAGNOSES: - Allergy status to other antibiotic agents - Allergy status to other drugs, medicaments and biological substances - Chronic obstructive pulmonary disease, unspecified - Dizziness and giddiness - detention (current) use of anticoagulants - Other prison (current) drug therapy - Personal history of nicotine dependence - Pneumonia, unspecified organism - Unspecified atrial fibrillation - Urinary tract infection, site not specified 07/02/2024 07:35 [facility] TYPE: Emergency COMPLAINT: - WEAKNESS DIAGNOSES: - Abnormal weight loss - Allergy status to other antibiotic agents - Allergy status to other drugs, medicaments and biological substances - Allergy status to sulfonamides - Anemia, unspecified - Body mass index [BMI] 19.9 or less, adult - Chronic obstructive pulmonary disease, unspecified - Disorder of kidney and ureter, unspecified - Unspecified atrial fibrillation - Weakness INPATIENT VISIT TRACKING (12 MO.) 04/23/2025 18:34 [facility] TYPE: Medical Surgical COMPLAINT: - SOB DIAGNOSES: - Acquired absence of other specified parts of digestive tract - Acquired absence of other specified parts of digestive tract - Acute kidney failure, unspecified - Acute kidney failure, unspecified - Allergy status to other antibiotic agents - Allergy status to other antibiotic agents - Allergy status to other drugs, medicaments and biological substances - Allergy status to other drugs, medicaments and biological substances - Allergy status to sulfonamides - Allergy status to sulfonamides - Chronic diastolic (congestive) heart failure - Chronic obstructive pulmonary disease, unspecified - Chronic obstructive pulmonary disease, unspecified - Chronic right heart failure - Do not resuscitate - Do not resuscitate - Dyspnea, unspecified - Elevated white blood cell count, unspecified - Elevated white blood cell count, unspecified - Heart failure, unspecified - Heart failure, unspecified - Hormone replacement therapy - Hormone replacement therapy - detention (current) use of anticoagulants - cafe worker (current) use of anticoagulants - cafe worker (current) use of inhaled steroids - detention (current) use of inhaled steroids - Nonrheumatic aortic (valve) stenosis - Nonrheumatic aortic (valve) stenosis - Other prison (current) drug therapy - Other truck guard (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) drug therapy - Other specified postprocedural states - Other specified postprocedural states - Paroxysmal atrial fibrillation - Paroxysmal atrial fibrillation - Personal history of (healed) traumatic fracture - Personal history of (healed) traumatic fracture - Personal history of nicotine dependence - Personal history of nicotine dependence - Personal history of other diseases of the digestive system - Personal history of other diseases of the digestive system - Unspecified atrial flutter - Unspecified atrial flutter 02/11/2025 20:42 [facility] TYPE: Medical Surgical DIAGNOSES: - Cerebrospinal fluid leak, unspecified - Dizziness, Intracranial Hypotension 12/11/2024 14:04 [facility] TYPE: Observation COMPLAINT: - SUPRATHERAPEUTIC INR DIAGNOSES: - Abnormal coagulation profile - Allergy status to other antibiotic agents - Allergy status to other drugs, medicaments and biological substances - Allergy status to sulfonamides - Bronchiectasis, uncomplicated - Chronic obstructive pulmonary disease, unspecified - Do not resuscitate - Hemorrhage of anus and rectum - Hypokalemia - detention (current) use of anticoagulants - Other truck guard (current) drug therapy - Other specified bacterial agents as the cause of diseases classified elsewhere - Personal history of nicotine dependence - Unspecified atrial fibrillation [email or web address]
[2025-06-02 10:05] LABS: BASOPHILS 0.2 % (0.1-1.2); EOSINOPHILS 0.3 % (0.7-5.8); LYMPHOCYTES 7.6 % (19.3-51.7); MCH 29.1 PG (25.6-32.2); MCHC 32.2 g/dL (32.2-35.5); MCV 90.4 fL (79.4-94.8); MONOCYTES 5.9 % (4.7-12.5); NEUTROPHILS 85.6 % (34.0-71.1); RBC 4.05 M/uL (3.93-5.22)
[2025-06-02 10:33] LABS: ALT (SGPT) 10.0 U/L (14-59); AST (SGOT) 11.0 U/L (15-37); GLOMERULAR FILTRATION RATE,EST 40.0 mL/min (>60); PROTEIN, TOTAL 7.5 g/dL (6.4-8.2); UREA NITROGEN 31.0 mg/dL (7-18)
[2025-06-02] MEDS ORDERED: FUROSEMIDE 100 MG/10 ML VIAL IV ONE (10:45)
[2025-06-02] MEDS ORDERED: SODIUM CHLORIDE 0.9% 500 ML IV PRN (14:30)
[2025-06-02] MEDS ORDERED: AZITHROMYCIN 500 MG in DEXTROSE 5% 250 ML IV ONE (15:00)
[2025-06-02] MEDS ORDERED: ACETAMINOPHEN 325 MG TAB PO PRN (15:45)
[2025-06-02] MEDS ORDERED: ALBUTEROL SULFATE 0.083% 3 ML VIAL INH PRN (16:45)
--- NOTE | 2025-06-02 17:53 | EKG ---
[facility] [address] [facility] [place], [place] [address] Signed Atrial fibrillation Left axis deviation Anterior infarct (cited on or before 12-APR-2023) Abnormal ECG When compared with ECG of 26-APR-2025 09:31, Questionable change in initial forces of Septal leads Confirmed by Ana Saravia DO ([id number]) on 06/02/2025 5:53:05 PM Electronically Signed By: ANA SARAVIA DO 06/02/25 1753 PATIENT NAME: OSCAR MARTINEZ Electrocardiogram DATE OF : 38 PHYSICIAN: ANA SARAVIA DO REPORT #: [id number] REPORT IS CONFIDENTIAL AND NOT TO BE RELEASED WITHOUT AUTHORIZATION
--- NOTE | 2025-06-02 17:53 | EKG ---
[facility] [address] [place] [address] Signed Atrial flutter with variable AV block Left axis deviation Anterior infarct (cited on or before 12-APR-2023) Abnormal ECG When compared with ECG of 02-JUN-2025 09:20, (Unconfirmed) Atrial flutter has replaced Atrial fibrillation ST now depressed in Lateral leads Nonspecific T wave abnormality, worse in Inferior leads Nonspecific T wave abnormality now evident in Lateral leads Confirmed by Ana Saravia DO ([id number]) on 06/02/2025 5:53:46 PM Electronically Signed By: ANA SARAVIA DO 06/02/25 175 PATIENT NAME: OSCAR MARTINEZ Electrocardiogram DATE OF : 38 PHYSICIAN: ANA SARAVIA DO REPORT #: [id number] REPORT IS CONFIDENTIAL AND NOT TO BE RELEASED WITHOUT AUTHORIZATION
--- NOTE | 2025-06-02 19:31 | NUR ---
REPORT RECEIVED FROM DAY SHIFT RN. PATIENT RESTING IN BED WATCHING TV. DENIES NEEDS AT THIS TIME. BED ALARM ON. CALL LIGHT IN REACH.
[2025-06-02] MEDS ORDERED: IPRATROPIUM BROMIDE 2.5 ML VIAL INH SCH (20:00)
[2025-06-02] MEDS ORDERED: METOPROLOL TARTRATE 50 MG TAB PO ONE (20:15)
--- NOTE | 2025-06-02 20:15 | NUR ---
MD SARAVIA ON FLOOR. NEW VERBAL ORDER RECEIVED. VERIFIED USING REPEATBACK METHOD.
--- NOTE | 2025-06-02 20:39 | NUR ---
FRONT MAKER LOCKSTITCH OBTAINED VITALS. NO NEW I&O AT THIS TIME. PT STATES NO NEEDS AND CALL LIGHT WITHIN REACH. BED ALARM ON.
--- NOTE | 2025-06-02 20:58 | NUR ---
CALL PLACED TO MD SARAVIA BY TOMAS HERNANDEZ REGARDING PATIENTS BP. TO PLACE ORDERS.
[2025-06-02] MEDS ORDERED: MELATONIN 3 MG TAB PO PRN (21:00)
[2025-06-02] MEDS ORDERED: guaiFENesin 600 MG TABCR PO SCH (21:00)
[2025-06-02] MEDS ORDERED: LACTATED RINGER'S 500 ML IV ONE (21:00)
--- NOTE | 2025-06-02 21:35 | NUR ---
PATIENT RESTING IN BED. VS AND I&Os OBTAINED AND RECORDED. SCHEDULED MEDICATION ADMINISTERED. FLUID BOLUS INFUSING PER ORDER. ASSESSMENT COMPLETE. PATIENT DENIES FURTHER NEEDS AT THIS TIME. ENSURE PROVIDED. CALL LIGHT IN REACH. BED ALARM ON.
--- NOTE | 2025-06-02 22:34 | NUR ---
PHONE CALL TO DOCTOR TO ADVISE OF NEW VITALS AFTER BOLUS. PER DOCTOR IF MAP GOES BELOW 65 HE WOULD LIKE 1L BOLUS OF LR. WE WILL START HER ON TELE ALSO
--- NOTE | 2025-06-02 23:20 | NUR ---
PATIENT RESTING IN BED. IV PLACED IN L FOREARM. PATIENT CARLA WELL. NO FURTHER NEEDS. CALL LIGHT IN REACH.
--- NOTE | 2025-06-02 23:22 | NUR ---
DOCTOR ADVISED OF 87/57 BP WITH HR IN THE 130-158. AT THIS TIME WILL CONTINUE WITH 1L BOLUS OF LR AND CHECK AGAIN. PATIENT IS NOT HAVING CHEST PAIN, STATES AT TIMES SHE CAN FEEL HER HEART RACING BUT NOT OFTEN. SHE IS SCHEDULED FOR APT IN JULY WITH CARDIO FOR AORTIC VALVE REPLACEMENT. SHE WAS DX WITH AFIB 2 YEARS AGO. LR BOLUS RUNNING AT THIS TIME. WILL MONITOR PATIENT.
[2025-06-03] VITALS (13 sets, daily range): BP systolic 95–123; BP diastolic 52–64
--- NOTE | 2025-06-03 00:53 | NUR ---
CALL LIGHT ANSWERED. PT DONE ON BEDPAN. MANAGER ENTRY AND MARY PIERRE TOOK PT OFF BEDPAN AND CHANGED PT PUREWICK. PT UNABLE TO HAVE BM IN BEDPAN. VITALS AND I&O OBTAINED. PT STATES NO FURTHER NEEDS AT THIS TIME. CALL LIGHT WITHIN REACH.
--- NOTE | 2025-06-03 02:09 | NUR ---
PATIENT RESTING IN BED. DENIES NEEDS AT THIS TIME. CALL LIGHT IN REACH.
--- NOTE | 2025-06-03 02:54 | NUR ---
PATIENT RESTING IN BED ON BACK WITH EYES CLOSED. RESPIRATIONS EVEN AND UNLABORED. CALL LIGHT IN REACH.
[2025-06-03 05:25] LABS: BASOPHILS 0.1 % (0.1-1.2); EOSINOPHILS 0 % (0.7-5.8); LYMPHOCYTES 6.5 % (19.3-51.7); MCH 28.6 PG (25.6-32.2); MCHC 33.0 g/dL (32.2-35.5); MCV 86.7 fL (79.4-94.8); MONOCYTES 3.4 % (4.7-12.5); NEUTROPHILS 89.7 % (34.0-71.1); RBC 3.77 M/uL (3.93-5.22)
[2025-06-03 05:47] LABS: ALT (SGPT) 12.0 U/L (14-59); AST (SGOT) 8.0 U/L (15-37); GLOMERULAR FILTRATION RATE,EST 45.0 mL/min (>60); PROTEIN, TOTAL 6.8 g/dL (6.4-8.2); UREA NITROGEN 41.0 mg/dL (7-18)
--- NOTE | 2025-06-03 06:09 | NUR ---
TUBE DRAWER OBTAINED VITALS AND I&O. PT STATES NO NEEDS AT THIS TIME. CALL LIGHT WITHIN REACH AND BED ALARM ON.
--- NOTE | 2025-06-03 07:14 | NUR ---
RECIEVED REPORT FROM MARY PIERRE. PT IS RESTING IN BED WITH HEAD ELEVATED AND EYES OPEN. RR EVEN AND UNLABORED. CALL LIGHT WITHIN REACH.
[2025-06-03] MEDS ORDERED: LACTATED RINGER'S 1,000 ML IV PRN (07:30)
[2025-06-03] MEDS ORDERED: MAGNESIUM SULFATE 2 GM/50 ML BAG IV ONE (08:00)
[2025-06-03] MEDS ORDERED: ARFORMOTEROL TARTRATE 15 MCG/2 ML VIAL INH SCH (08:00)
--- NOTE | 2025-06-03 08:15 | NUR ---
Spoke with Shireen and her daughter, Sade. Pt lives in a house with her . She states it is ADA and has 0 steps. Spouse does the shopping, cooking, cleaning. Daughter assists pt frequently by cooking food, cleaning, helping showering. She will assist pt this as much as needed. Pt and daughter do not feel pt or spouse have any needs at this time. They deny financial issues or safety issues in the home. Pt plans on dc to home when medically cleared.
[2025-06-03] MEDS ORDERED: AZITHROMYCIN 250 MG TAB PO SCH (09:00)
[2025-06-03] MEDS ORDERED: predniSONE 20 MG TAB PO SCH (09:00)
[2025-06-03] MEDS ORDERED: METOPROLOL TARTRATE 25 MG TAB PO SCH (09:00)
--- NOTE | 2025-06-03 09:08 | NUR ---
RT IN WITH PT AT THIS TIME.
--- NOTE | 2025-06-03 09:15 | NUR ---
PLACED CALL TO DR. SARAVIA REGARDING PT'S ELEVATED HEART RATE ABOVE [address] SARAVIA WITH NO NEW ORDERS AT THIS TIME. PHONE CALL ENDED.
[2025-06-03] MEDS ORDERED: METOPROLOL TART50 MG PO (09:31)
[2025-06-03] MEDS ORDERED: METOPROLOL TART25 MG PO ×2 (09:32)
[2025-06-03] MEDS ORDERED: TORSEMIDE10 MG PO ×2 (09:51)
--- NOTE | 2025-06-03 09:54 | NUR ---
UR CLINICAL REVIEW: 2MN VERSALUS, MEETS INPT FOR PNEUMONIA WITH SEPSIS HR >100, TACHYPNEIC >20, ELEVATED WBC, LACTIC ACID 2.1, CXR POSITIVE PULMONARY EDEMA AND OPACITIES, IV ANTIBIOTICS, IV DIURETICS MEDICARE INPT 06/02/2025 @ 1536 ORDER MATCHES REG NO AUTH REQUIRED PER MEDICARE RULES. DC TO HOME WHEN MEDICALLY READY DC REVIEW 06/04/25
--- NOTE | 2025-06-03 10:52 | NUR ---
PATIENT IS LYING IN BED WITH EYES OPEN AND RESPIRATIONS ARE EVEN AND UNLABORED. PATIENT IS SPEAKING WITH TWO VISITORS WHO ARE SITTING AT BEDSIDE. CALL LIGHT AND PERSONAL BELONGINGS ARE WITHIN REACH.
--- NOTE | 2025-06-03 11:11 | NUR ---
PATIENT REMAINS IN BED WITH HOB ELEVATED. PATIENT WITH EYES OPEN AND RESPIRATIONS ARE EVEN AND UNLABORED. PATIENT IS SPEAKING TO TWO VISITORS WHO ARE SITTING AT BEDSIDE. CALL LIGHT AND PERSONAL BELONGINGS ARE WITHIN REACH.
--- NOTE | 2025-06-03 11:36 | NUR ---
PATIENT IN BED AT THIS TIME. MANAGER OF PLANNING CHANGED PATIENTS PUREWICK. CALL LIGHT WITHIN R EACH, NO FURTHER NEEDS.
--- NOTE | 2025-06-03 11:53 | NUR ---
MED REC COMPLETE
[2025-06-03] MEDS ORDERED: PHARMACY RENAL DOSE ADJUSTMENT 1 DOSE MISC PO SCH (12:00)
--- NOTE | 2025-06-03 12:23 | NUR ---
PT IS SITTING UP IN BED WITH LUNCH TRAY. CALL LIGHT IS WITHIN REACH. PT DENIES ANY NEEDS AT THIS TIME.
--- NOTE | 2025-06-03 13:05 | NUR ---
PT IS SITTING UP IN BED, ON PHONE. RR EVEN AND UNLABORED. CALL LIGHT AND PERSONAL BELONGINGS ARE WITHIN REACH.
[2025-06-03 14:12] LABS: PROTIME 52.0 Sec (11.2-14.2)
[2025-06-03 14:14] LABS: INR 6.2 (0.80-1.30)
[2025-06-03] MEDS ORDERED: PHYTONADIONE 2.5 MG/2.5 ML SYR PO ONE (14:30)
--- NOTE | 2025-06-03 14:35 | NUR ---
PHYSICAL THERAPY IS WORKING WITH PT AT THIS TIME.
--- NOTE | 2025-06-03 14:52 | NUR ---
CARDIAC NURSE IS IN THE ROOM AT THIS TIME. PATIENT IS SITTING IN THE CHAIR WITH BILATERAL LOWER EXTREMITIES ELEVATED. PATIENT LINENS CHANGED AND A WAFFLE MATTRESS PLACED AT THIS TIME. CALL LIGHT AND PERSONAL BELONGINGS ARE WITHIN REACH.
--- NOTE | 2025-06-03 15:59 | NUR ---
In pts room to do CHF education. Pt sitting in bedside chair. Education completed and pt verbalized understanding. All questions answered. If pt has additional questions, I well return to room and answer them. Get with the [facility] Heart Failure discharge packet was left at bedside.
[2025-06-03] MEDS ORDERED: WARFARIN SOD HOLD 1 EA PO SCH (16:00)
[2025-06-03] MEDS ORDERED: WARFARIN PER PHARMACY PROTOCOL PO SCH (16:00)
--- NOTE | 2025-06-03 16:06 | NUR ---
PT SITTING UP IN CHAIR, VISITING WITH IN ROOM. CALL LIGHT WITHIN REACH.
--- NOTE | 2025-06-03 17:09 | NUR ---
PT SITTING UP IN CHAIR WITH DINNER TRAY. CALL LIGHT AND PERSONAL BELONGINGS ARE WITHIN REACH.
--- NOTE | 2025-06-03 17:40 | NUR ---
PATIENT BRUSHED HER TEETH AND WASHED HER FACE. GOT HER FRESH CUP OF ICE WATER.
--- NOTE | 2025-06-03 18:13 | NUR ---
PT SITTING UP IN BED, ON PHONE. RR EVEN AND UNLABORED. CALL LIGHT AND PERSONAL BELONGINGS ARE WITHIN REACH.
--- NOTE | 2025-06-03 18:43 | NUR ---
PATIENT IN BED AT THIS TIME. THIS CHEMICAL WEIGHER ASSISTED PATIENT IN GETTING TO BED FROM CHAIR. CHEMICAL WEIGHER ALSO GAVE PATIENT A SHOWER CAP. CALL LIGHT WITHIN REACH, NO FURTHER NEEDS AT THIS TIME.
--- NOTE | 2025-06-03 19:35 | NUR ---
REPORT RECEIVED FROM DAY SHIFT RN. PATIENT RESTING IN BED. DENIES NEEDS AT THIS TIME. CALL LIGHT IN REACH.
--- NOTE | 2025-06-03 21:14 | NUR ---
ACTIVITIES LEADER IN ROOM TO CHANGE PT PUREWICK. PT PUREWICK, BREIF, AND CHUCKS PAD CHANGED. SET OF VITALS OBTAINED VIA RN REQUEST. PT STATES NO FURTHER NEEDS AT THIS TIME. CALL LIGHT WITHIN REACH AND BED ALARM ON.
--- NOTE | 2025-06-03 21:15 | NUR ---
PATIENT HR ON TELE 130-160s. THIS RN TO ROOM. PATIENT STATES SHE WAS REACHING DOWN TO FIND HER REMOTE THAT SHE DROPPED. VS OBTAINED AND RECORDED. MD ON FLOOR. THIS RN UPDATED MD ON PATIENTS HR. MD STATES HE WILL GET HIS STETHASCOPE AND GO SEE THE PATIENT. NO NEW ORDERS AT THIS TIME.
[2025-06-03] MEDS ORDERED: METOPROLOL TARTRATE 50 MG TAB PO ONE ×2 (21:30→21:45)
--- NOTE | 2025-06-03 21:56 | NUR ---
AND THIS RN IN ROOM. VERBAL ORDERS RECEIVED BY . VERIFIED USING REPEATBACK METHOD.
[2025-06-03] MEDS ORDERED: TRAZODONE HCL 50 MG TAB PO PRN (22:00)
--- NOTE | 2025-06-03 22:05 | NUR ---
SCHEDULED MEDICATION ADMINISTERED. PATIENT DENIES FURTHER NEEDS. CALL LIGHT IN REACH.
--- NOTE | 2025-06-03 23:09 | NUR ---
PATIENT RESTING IN BED WITH EYES CLOSED. RESPIRATIONS EVEN AND UNLABORED. CALL LIGHT IN REACH.
[2025-06-04] VITALS (12 sets, daily range): BP systolic 107–127; BP diastolic 44–75
--- NOTE | 2025-06-04 01:45 | NUR ---
PATIENT RESTING IN BED. VS AND I&Os OBTAINED AND RECORDED. PATIENT DENIES FURTHER NEEDS. CALL LIGHT IN REACH. BED ALARM ON.
--- NOTE | 2025-06-04 02:16 | NUR ---
CALL LIGHT ANSWERED. PATIENT REQUESTING MEDICATION FOR SLEEP. PRN MEDICATION ADMINISTERED. PATIENT DENIES FURTHER NEEDS AT THIS TIME. CALL LIGHT IN REACH.
--- NOTE | 2025-06-04 04:15 | NUR ---
PATIENT RESTING IN BED ON BACK WITH EYES CLOSED. RESPIRATIONS EVEN AND UNLABORED. CALL LIGHT IN REACH. BED ALARM ON.
[2025-06-04 05:26] LABS: BASOPHILS 0.1 % (0.1-1.2); EOSINOPHILS 0 % (0.7-5.8); LYMPHOCYTES 5.5 % (19.3-51.7); MCH 28.7 PG (25.6-32.2); MCHC 32.4 g/dL (32.2-35.5); MCV 88.6 fL (79.4-94.8); MONOCYTES 5.5 % (4.7-12.5); NEUTROPHILS 88.4 % (34.0-71.1); RBC 3.87 M/uL (3.93-5.22)
[2025-06-04 05:42] LABS: INR 3.52 (0.80-1.30); PROTIME 33.4 Sec (11.2-14.2)
[2025-06-04 05:51] LABS: ALT (SGPT) 7.0 U/L (14-59); AST (SGOT) 10.0 U/L (15-37); GLOMERULAR FILTRATION RATE,EST 52.0 mL/min (>60); PROTEIN, TOTAL 6.4 g/dL (6.4-8.2); UREA NITROGEN 38.0 mg/dL (7-18)
--- NOTE | 2025-06-04 07:03 | NUR ---
RECIEVED REPORT FROM MARY PIERRE. PT IS RESTING IN BED WITH EYES CLOSED. RR EVEN AND UNLABORED. CALL LIGHT IS WITHIN REACH.
[2025-06-04 08:52] LABS: INR 2.67 (0.80-1.30); PROTIME 27.6 Sec (11.2-14.2)
[2025-06-04] MEDS ORDERED: DOXYCYCLINE HYCLATE 100 MG CAP PO SCH (09:00)
--- NOTE | 2025-06-04 09:32 | NUR ---
CUSTOMER RETENTION REPRESENTATIVE HENRY VOICED CONCERNS REGARDING PT'S RIGHT IV. IV HAS SMALL AMOUNT OF BRUISING AROUND CATHETER INSERTION SITE. IV FLUSHED, NO SIGNS OF LEAKING OR INFILTRATION. PT DENIES ANY PAIN WITH IV FLUSH. CUSTOMER RETENTION REPRESENTATIVE AND PT DENY ANY OTHER NEEDS. CALL LIGHT WITHIN REACH. AT BEDSIDE.
--- NOTE | 2025-06-04 10:12 | NUR ---
BED LINENS CHANGED AT THIS TIME. DEANNA BOWER IS IN THE ROOM AND ASSISTING PATIENT FROM THE COMMODE TO THE BED. PATIENT AND ENGINE TESTING SUPERVISOR WITH NO FURTHER NEEDS AT THIS TIME.
--- NOTE | 2025-06-04 11:40 | NUR ---
PT SITTING UP IN CHAIR WITH EYES OPEN. RR EVEN AND UNLABORED. DENIES ANY NEEDS AT THIS TIME. CALL LIGHT AND PERSONAL BELONGINGS ARE WITHIN REACH.
--- NOTE | 2025-06-04 12:09 | NUR ---
PT RESTING WITH EYES CLOSED IN CHAIR. RR EVEN AND UNLABORED. CALL LIGHT AND PERSONAL BELONGINGS ARE WITHIN REACH.
--- NOTE | 2025-06-04 13:40 | NUR ---
PT SITTING UP IN CHAIR WITH EYES OPEN. FAMILY MEMBER IS IN ROOM VISITING. CALL LIGHT WITHIN REACH.
--- NOTE | 2025-06-04 14:06 | NUR ---
PATIENT IS WORKING WITH PHYSICAL THERAPY AT THIS TIME.
--- NOTE | 2025-06-04 15:14 | NUR ---
UR DC REVIEW: CONTINUED NEED FOR IV LASIX, IV ANTIBIOTICS, OXYGEN TITRATION BLOOD CULTURES PENDING. PLAN TO DC TO HOME WHEN MEDICALLY READY. LIVES WITH SPOUSE AND DAUGHTER HELPS. ADD: 06/05-06/06/2025 NO OTHER NEEDS.
--- NOTE | 2025-06-04 15:41 | NUR ---
IMM LETTER COMPLETED.
[2025-06-04] MEDS ORDERED: WARFARIN SOD HOLD 1 EA PO SCH (16:00)
--- NOTE | 2025-06-04 16:05 | NUR ---
PT SITTING UP IN BED WITH EYES OPEN, TALKING ON PHONE. CALL LIGHT WITHIN REACH.
--- NOTE | 2025-06-04 16:45 | NUR ---
PATIENT IN BED AT THIS TIME. THIS BIOTECHNOLOGIST ASSISTED PATIENT TO BEDSIDE COMMODE AND THEN BACK TO BED. CALL LIGHT WITHIN REACH, NO FURTHER NEEDS.
--- NOTE | 2025-06-04 17:03 | NUR ---
PT SITTING UP IN BED, POST OCCUPATIONAL THERAPY. ROBB, OT, REPORTED THAT PT'S HEART RATE ELSCALATED TO 160'S AFTER STANDING UP. PT HAS BEEN BACK IN BED SINCE. PT DENIES ANY NEEDS AT THIS TIME. CALL LIGHT IS WITHIN REACH.
--- NOTE | 2025-06-04 18:55 | NUR ---
PT SITTING UP IN BED, EYES OPEN. RR EVEN AND UNLABORED. CALL LIGHT WITHIN REACH. PT DENIES ANY FURTHER NEEDS.
--- NOTE | 2025-06-04 19:45 | NUR ---
IN TO ASSIST RN WITH VS, NO FURTHER NEEDS AT THIS TIME
--- NOTE | 2025-06-04 19:53 | NUR ---
METOPROLOL GIVEN PER ORDERS. ALERT AND ORIENTED. ON ROOM AIR. LUNGS CLEAR DIM AT BASES. IRREGULAR hr, TELE#[address], NO C/O CP. ABD SOFT, NON TENDER. 2 SL PATENT. NO C/O PAIN AT THIS TIME
--- NOTE | 2025-06-04 20:25 | NUR ---
IN TO ASSIST PT IP TO THE BSC, SBA, CALL IN REACH AND THIS MEMORIAL DESIGNER NEARBY
[2025-06-04] MEDS ORDERED: METOPROLOL TARTRATE 100 MG TAB PO SCH (21:00)
--- NOTE | 2025-06-04 21:31 | NUR ---
AWAKE, DECLINED TYLENOL, TELE#[address], AFIB RHYTHM, DENIES CP, PULSE IN RAY MID 70'S AT THIS TIME. METOPROLOL EFFECTIVE.
[2025-06-05] VITALS (9 sets, daily range): BP systolic 95–121; BP diastolic 52–68
--- NOTE | 2025-06-05 00:39 | NUR ---
RESTING, EYES CLOSED, NO S/SX DISTRESS. TELE#[address], AFIB RHYTHM.
--- NOTE | 2025-06-05 03:43 | NUR ---
Resting,eyes closed. on room air, no s/sx distress, tele#[address] Afib rhythm.
[2025-06-05 05:21] LABS: BASOPHILS 0.1 % (0.1-1.2); EOSINOPHILS 0 % (0.7-5.8); LYMPHOCYTES 4.8 % (19.3-51.7); MCH 29.0 PG (25.6-32.2); MCHC 32.2 g/dL (32.2-35.5); MCV 90.2 fL (79.4-94.8); MONOCYTES 6.4 % (4.7-12.5); NEUTROPHILS 87.8 % (34.0-71.1); RBC 4.10 M/uL (3.93-5.22)
[2025-06-05 05:31] LABS: ALT (SGPT) 15.0 U/L (14-59); AST (SGOT) 15.0 U/L (15-37); GLOMERULAR FILTRATION RATE,EST 56.0 mL/min (>60); PROTEIN, TOTAL 6.8 g/dL (6.4-8.2); UREA NITROGEN 39.0 mg/dL (7-18)
[2025-06-05 05:50] LABS: INR 1.76 (0.80-1.30); PROTIME 19.5 Sec (11.2-14.2)
--- NOTE | 2025-06-05 07:00 | NUR ---
RECIEVED REPORT FROM MARY SHARPE. PT IS RESTING IN BED WITH EYES CLOSED. RR EVEN AND UNLABORED. CALL LIGHT WITHIN REACH.
[2025-06-05] MEDS ORDERED: BUDESONIDE 0.5 MG/2 ML VIAL INH SCH (08:00)
--- NOTE | 2025-06-05 08:30 | NUR ---
MD NOTIFIED AT THIS TIME OF PT'S HR ESCALATING ABOVE 160 WHEN TRANSFERRING TO AND SITTING IN W/C FOR X-RAY. WITH NO NEW ORDERS AT THIS TIME.
--- NOTE | 2025-06-05 08:51 | NUR ---
PATIENT IN BED AT THIS TIME. SCREEN MAKING SUPERVISOR CHARTED HOURLY ROUNDS. CALL LIGHT WITHIN REACH, NO FURTHER NEEDS.
--- NOTE | 2025-06-05 09:14 | NUR ---
PATIENT IN CHAIR AT THIS TIME. THIS DRYING MACHINE OPERATOR CHARTED HOURLY ROUNDS AND THIS DRYING MACHINE OPERATOR CHANGED PATIENTS LINENS. THIS DRYING MACHINE OPERATOR ASSISTED PATIENT TO BEDSIDE COMMODE AND THEN BACK TO CHAIR. CALL LIGHT WITHIN REACH, NO FURTHER NEEDS.
--- NOTE | 2025-06-05 10:05 | NUR ---
PT SITTING IN CHAIR ON CELL PHONE. CALL LIGHT WITHIN REACH.
--- NOTE | 2025-06-05 11:12 | NUR ---
PATIENT IS SITTING IN THE CHAIR WITH BILATERAL LOWER EXTREMITIES ELEVATED. PATIENT WITH EYES CLOSED AND RESPIRATIONS ARE EVEN AND UNLABORED. CALL LIGHT AND PERSONAL BELONGINGS ARE WITHIN REACH.
--- NOTE | 2025-06-05 12:30 | NUR ---
PT SITTING ON EDGE OF BED WITH LUNCH TRAY AND CALL LIGHT. PT DENIES ANY NEEDS AT THIS TIME.
--- NOTE | 2025-06-05 13:43 | NUR ---
PT SITTING UP IN BED VISITING WITH IN ROOM. CALL LIGHT WITHIN REACH.
--- NOTE | 2025-06-05 14:03 | NUR ---
PATIENT IN BED AT THIS TIME. SKIN PILER CHARTED VITALS AND I&O'S. CALL LIGHT WITHIN REACH, NO FURTHER NEEDS AT THIS TIME.
--- NOTE | 2025-06-05 14:41 | NUR ---
PATIENT IS LYING IN BED WITH HOB ELEVATED. PATIENT WITH EYES OPEN AND RESPIRATIONS ARE EVEN AND UNLABORED. PATIENT IS SITTING IN THE RECLINER AT BEDSIDE. CALL LIGHT AND PERSONAL BELONGINGS ARE WITHIN REACH.
--- NOTE | 2025-06-05 15:40 | NUR ---
PATIENT ASSISTED TO THE COMMODE AT THIS TIME. PATIENT WITH CALL LIGHT IN REACH AND EDUCATED TO CALL WHEN FINISHED. PATIENT EXPRESSED UNDERSTANDING.
[2025-06-05] MEDS ORDERED: WARFARIN SOD 5 MG TAB PO SCH (16:00)
--- NOTE | 2025-06-05 16:15 | NUR ---
PT RESTING IN BED WITH EYES OPEN. RR EVEN AND UNLABORED. CALL LIGHT WITHIN REACH.
--- NOTE | 2025-06-05 18:36 | NUR ---
PT SITTING UP IN BED, VISITING WITH DAUGHTER. DANIELLA CLEARED. CALL LIGHT WITHIN REACH. PT DENIES ANY NEEDS AT THIS TIME.
--- NOTE | 2025-06-05 18:55 | NUR ---
PATIENT IN BED AT THIS TIME. RETIREMENT OFFICER CHARTED VITALS AND I&O'S. CALL LIGHT WITHIN REACH, NO FURTHER NEEDS.
--- NOTE | 2025-06-05 19:57 | NUR ---
Pt awake, watching tv, on room air, no c/o sob with exertion. Lungs clear uppers, coarse at bases, tele#[address] afib rhythm. abd soft, graham, LBM today. Allevyn to back area. SL LFA patent. no c/o pain
--- NOTE | 2025-06-05 22:22 | NUR ---
RESTING, EYES CLOSED, ON ROOM AIR, NO S/SX DISTRESS, TELE#[address] AFIB RHYTHM
[2025-06-06] VITALS (13 sets, daily range): BP systolic 97–135; BP diastolic 55–82
--- NOTE | 2025-06-06 00:05 | NUR ---
USED CALL LIGHT, UP TO BSC 1PA, VOIDED. BACK TO BED, TELE#[address], TACHY WITH EXERTION. HR UP TO 107. NO SOB. BACK TO BED, NO C/O PAIN OR SOB
--- NOTE | 2025-06-06 02:28 | NUR ---
resting, awakens easily, tele#[address], afib w svpb's, denies c/o cp. On room air, lungs with crackles bilat, louder on right than left. [place] at bedside
--- NOTE | 2025-06-06 05:17 | NUR ---
no c/o pain, up to BSC, voided, tel#8, tachy when up, hr up to 120, denies sob with exertion, 1pa, in bed, cooperative with vitals and labs
[2025-06-06 05:27] LABS: INR 1.42 (0.80-1.30); PROTIME 16.4 Sec (11.2-14.2)
--- NOTE | 2025-06-06 07:06 | NUR ---
RECIEVED REPORT FROM MARY SHARPE. PT IS SITTING UP IN BED WITH EYES OPEN, WORKING WITH ACAPELLA. PT DENIES ANY NEEDS AT THIS TIME. CALL LIGHT WITHIN REACH.
[2025-06-06 08:02] LABS: BASOPHILS 0.2 % (0.1-1.2); EOSINOPHILS 0 % (0.7-5.8); LYMPHOCYTES 6.8 % (19.3-51.7); MCH 29.6 PG (25.6-32.2); MCHC 32.6 g/dL (32.2-35.5); MCV 91.0 fL (79.4-94.8); MONOCYTES 6.8 % (4.7-12.5); NEUTROPHILS 85.7 % (34.0-71.1); RBC 4.22 M/uL (3.93-5.22)
[2025-06-06 08:22] LABS: ALT (SGPT) 17.0 U/L (14-59); AST (SGOT) 11.0 U/L (15-37); GLOMERULAR FILTRATION RATE,EST 46.0 mL/min (>60); PROTEIN, TOTAL 7.3 g/dL (6.4-8.2); TSH, 3RD GENERATION 1.0 uIU/mL (0.358-3.740); UREA NITROGEN 34.0 mg/dL (7-18)
--- NOTE | 2025-06-06 08:45 | NUR ---
PT SITTING UP IN BED WITH FINISHED BREAKFAST TRAY, VISITING WITH DAUGHTER AND WHO ARE AT BEDSIDE. PT DENIES ANY NEEDS AT THIS TIME. CALL LIGHT IS WITHIN REACH. TRAY REMOVED FROM ROOM.
--- NOTE | 2025-06-06 09:32 | NUR ---
PT SITTING UP IN BED WITH EYES OPEN, VISITING WITH DAUGHTER IN ROOM. CALL LIGHT IS WITHIN REACH.
--- NOTE | 2025-06-06 09:35 | NUR ---
HOURLY ROUNDING PATIENT IS VISITING WITH FAMILY NO REQUEST AT THIS TIME CALL LIGHT HAS BEEN PLACED WITHIN REACH
--- NOTE | 2025-06-06 11:00 | NUR ---
In with pt in response to call light. Pt IV Pump is alarming that the infusion is complete. IV stopped and disconnected, IV flushed with 10ml NS, pt has no c/o pain, no redness/swelling/leaking noted. Hub disinfected with alcohol swab and green cap applied. SBA as pt ambulated to bathroom using FWW. Instructed pt to use the call light when she is finished. Pt used call light after having a BM and voiding 200ml clear yellow urine. Pt denies dizziness or lightheadedness initially when ambulating to the toilet, but on her way back she states she is feeling a little dizzy but was able to ambulate to the bed and get herself into it without issue. Pt denies further needs at this time. Call light in reach, bedside table and personal belongings in reach.
--- NOTE | 2025-06-06 11:18 | NUR ---
PT SITTING UP IN BED ON PHONE. CALL LIGHT WITHIN REACH.
--- NOTE | 2025-06-06 12:20 | NUR ---
PT SITTING UP IN CHAIR. ASSISTED PT WITH SETTING UP LUNCH TRAY. MAYONAISE PROVIDED PER PT REQUEST. PT DENIES ANY OTHER NEEDS AT THIS TIME. CALL LIGHT WITHIN REACH.
--- NOTE | 2025-06-06 13:06 | NUR ---
THIS NURSE IS COVERING FOR NURSES LUNCH. IV PUMPED CLEARED. ROOM CLEANED UP. PATIENT SLEEPING IN BED. CALL LIGHT WITHIN REACH. BED IN LOW POSITION.
--- NOTE | 2025-06-06 13:36 | NUR ---
PT RESTING IN BED WITH EYES CLOSED. RR EVEN AND UNLABORED. CALL LIGHT IS WITHIN REACH.
--- NOTE | 2025-06-06 14:25 | NUR ---
PT RESTING IN BED WITH EYES CLOSED. RR EVEN AND UNLABORED. CALL LIGHT WITHIN REACH.
--- NOTE | 2025-06-06 15:02 | NUR ---
PT RESTING IN BED, VISITING WITH FAMILY IN ROOM. CALL LIGHT WITHIN REACH.
[2025-06-06] MEDS ORDERED: WARFARIN SOD 5 MG TAB PO SCH (16:00)
--- NOTE | 2025-06-06 16:16 | NUR ---
PATIENT SITTING UP DOING HER IS FOR HER BREATHING. MEDICATION GIVEN. PATIENT JUST HAD A STARBERRY MILKSHAKE FROM HER SON. DENIES ANY OTHER CARES AT THIS TIME.
--- NOTE | 2025-06-06 17:10 | NUR ---
THIS RN CALLED YASMINE, PHARMACIST TO VERFIY THE PLAN WAS TO ADMINISTER THE 1600 WARFARIN DOSE. YASMINE STATED "YES" THEY WERE CONSIDERING PRADAXA AND NO ORDER WAS PUT IN FOR THAT. YASMINE STATED HE HAD A CONVERSATION WITH ABOUT GOING WITH WARFARIN.
--- NOTE | 2025-06-06 17:23 | NUR ---
HOSPITALIST AWARE OF 1600 WARFARIN DOSE ADMINISTERED. MARY YODER FOUND IN PROGRESS NOTE BY TO HOLD WARAFARIN AND ALSO HAVE THE WARFARIN DOSED BY PHARMACY. MD STATED " DO NOT WORRY" AND TO LET PHARMACY KNOW THEY WERE GOING BACK ON FORTH ON WARFARIN VS. PRADAXA. MD NOTIFIED OF PHARMACY BEING AWARE. MD WITH NO FURTHER ORDERS AT THIS TIME. CALL ENDED.
--- NOTE | 2025-06-06 18:12 | NUR ---
ROUNDED ON PT AT THIS TIME. PT LAYING IN BED WITH EYES OPEN. REMOVED DINNER TRAY, AND TURNED LIGHTS OFF PER PT REQUEST CALL LIGHT WITHIN REACH. PT DENIES ANY NEEDS AT THIS TIME.
--- NOTE | 2025-06-06 19:20 | NUR ---
REPORT RECEIVED FROM OFFGOING RN. PT ROUNDING. PT RESTING IN BED. OTHER RN AT BEDSIDE. HEARING AIDS PLACED IN CHARGING CASE AT BEDSIDE PER PT REQUEST. ENSURE PROTEIN PROVIDED PER PT REQUEST. PT DENIES FURTHER NEEDS AT THIS TIME. CALL LIGHT IN REACH.
--- NOTE | 2025-06-06 21:10 | NUR ---
PT ASSESSMENT COMPLETE. RT PRESENT AT BEDSIDE DISCUSSING DISCHARGE PLAN WITH PT. VS OBTAINED. WNL. PT DENIES PAIN, NAUSEA, SOB. LUNG SOUNDS WITH CRACKLES THROUGHOUT. PT REPORTS OCCASIONAL NUMBNESS AND TINGLING TO BLE'S, STATES THAT THIS IS CHRONIC FOR HER. BLANCHABLE REDNESS NOTED TO R GREAT AND 2ND TOES. SCAB PRESENT TO L 2ND TOE. REDDENED AREAS AND SCAB ON B TOES LEFT RIP SAW OPERATOR PER PT. ALLEVYN TO REDDENED AREA ON SPINE ROLLED UP, NEW ALLEVEN APPLIED. PT UP TO BATHROOM, WASHED HER FACE AND BRUSHED HER TEETH, BACK TO BED. PT TOLERATED WELL. STATES THAT THIS IS THE FIRST TIME SHE'S BEEN UP THAT SHE HAS NOT EXPERIENCED DIZINESS. IV FLUSHED BY OTHER RN WITH 10 ML NS, BRISK BLOOD RETURN NOTED, IV PATENT. PT DENIES FURTHER NEEDS AT THIS TIME. CALL LIGHT AND PERSONAL CARE ITEMS IN REACH.
--- NOTE | 2025-06-06 22:06 | NUR ---
PT ROUNDING. PT RESTING IN BED WITH EYES CLOSED. RESPIRATIONS EVEN AND UNLABORED. PT DOES NOT WAKE WHILE KENNEL OPERATOR AT DOORWAY. CALL LIGHT IN REACH.
--- NOTE | 2025-06-06 23:19 | NUR ---
TAKEN OVER CARE, RESTING, EYES CLOSED, ON ROOM AIR, NO S/SX DISTRESS. TELE#[address] AFIB RHYTHM AT THIS TIME
--- NOTE | 2025-06-06 23:32 | NUR ---
PT ROUNDING. PT RESTING IN BED WITH EYES CLOSED. SNORING AUDIBLY FROM DOORWAY. RESPIRATIONS EVEN AND UNLABORED. CALL LIGHT IN REACH.
--- NOTE | 2025-06-07 00:20 | NUR ---
PATIENT USED CALL LIGHT TO USE THE RESTROOM. PATIENT SBA WITH WALKER NO TROUBLE AT ALL. BED CLEANED UP AND PATIENT BACK IN BED. CALL LIGHT WITHIN REACH, BED IN LOW POSITION. LIGHTS TURNED DOWN. WATER AT BEDSIDE.
[2025-06-07 00:50] VITALS: BP 102/51
--- NOTE | 2025-06-07 00:52 | NUR ---
PT UTILIZES BATHROOM CALL LIGHT. PT WASHED HER HANDS AND BACK TO BED WITH SBA. PT TOLERATED WELL. VS OBTAINED. WNL. PT DENIES FURTHER NEEDS AT THIS TIME. CALL LIGHT IN REACH.
--- NOTE | 2025-06-07 04:43 | NUR ---
RESTING, HOB ELEVATED, ON ROOM AIR, NO S/SX DISTRESS. TELE#[address] AFIB RHYTHM. ALLEVYN TO L MID BACK RED BLANCHEABLE AREA CHANGED, NO REDNESS TO FEET NOTED
[2025-06-07 05:11] VITALS: BP 107/52
[2025-06-07 05:22] VITALS: BP 107/52
[2025-06-07 05:33] LABS: INR 1.75 (0.80-1.30); PROTIME 19.4 Sec (11.2-14.2)
--- NOTE | 2025-06-07 06:29 | NUR ---
awake, no c/o pain, tele#[address] no c/o SOB with exertion or SOB
--- NOTE | 2025-06-07 07:36 | NUR ---
REPORT RECEIVED FROM ANNEMARIE HERNANDEZ. PATIENT IN BED, FAMILY AT BEDSIDE. CALL LIGHT AND PERSONAL BELONGINGS IN REACH. PATIENT DENIES CONCERNS.
--- NOTE | 2025-06-07 09:14 | NUR ---
PATIENT IN BED, RT AND FAMILY AT BEDSIDE. ASSESMENT COMPLETE. SCHEDULED MEDICATION ADMINISTERED PER EMAR. CALL LIGHT AND PERSONAL BELONGINGS IN REACH. PATIENT DENIES CONCERNS.
[2025-06-07] MEDS ORDERED: DOXYCYCLINE HY100 MG PO ×2 (09:21)
[2025-06-07] MEDS ORDERED: METOPROLOL TAR100 MG PO ×2 (09:22)
[2025-06-07 09:25] VITALS: BP 121/50
--- NOTE | 2025-06-07 09:26 | NUR ---
PATIENT SITTING UP IN BED AT THIS TIME. VISITORS IN ROOM. VITALS DONE BY RN, I&O'S CHARTED. AM CARE DONE. CALL LIGHT IN REACH. NO FURTHER NEEDS AT THIS TIME.
--- NOTE | 2025-06-07 09:57 | NUR ---
PATIENT, SPOUSE AND DAUGHTER IN ROOM. DISCUSSED IMM LETTER. ALSO DISCUSSED DC TO HOME TODAY WITH HOME HEALTH. PATIENT CHOICES REVIEWED, PREFER [facility]. WILL SEND REFERRAL VIA FAX THIS AM. NO OTHER CM NEEDS NOTED AT THIS TIME.
--- NOTE | 2025-06-07 10:30 | NUR ---
PATIENT UP TO BATHROOM THEN TO SHOWER ADOLPH MIXON FWW. PATIENT MOSTLY INDEPENDENT IN SHOWER, THIS FISH HATCHERY MAN HELPED WITH WASHING BACK AND FEET. PATIENT STOOD AT SINK AND BLOW DRYED HAIR. DRESSED IN PERSONAL CLOTHES AND READY FOR DC. IV TAKEN OUT UPON RN REQUEST, CATH INTACT AND LOOKED GOOD. CALL LIGHT IN REACH. NO FURTHER NEEDS AT THIS TIME.
--- NOTE | 2025-06-07 10:56 | NUR ---
PATIENT SITTING UPRIGHT AT SIDE OF BED. AT BEDSIDE. PATIENT PROVIDED WITH DRINK AT HER REQUEST. CALL LIGHT AND PERSONAL BELONGINGS IN REACH.
--- NOTE | 2025-06-07 11:06 | NUR ---
PATIENT SITTING AT EDGE OF BED, AT BEDSIDE. VITAL SIGNS COMPLETE. DISCHARGE TEACHING REVIEWED VERBALLY, WRITTEN INFORMATION PROVIDED TO PATIENT. PATIENT VERBALIZED UNDERSTANIDNG AND DENIES QUESTIONS OR CONCERNS. CALL LIGHT AND PERSONAL BELONGINGS IN REACH. PATIENT CONFIRMS SHE HAS ALL BELONGINGS INCLUDING WALLET, KEYS, PHONE, AND PHONE VEGETABLE GRADER.
[2025-06-07 11:12] VITALS: BP 114/37
[2025-06-07 11:14] VITALS: BP 114/37
--- NOTE | 2025-06-07 11:49 | NUR ---
PATIENT OFF UNIT WITH THIS RN AND HER VIA WHEELCHAIR. AND PATIENT LEFT VIA PRIVATE VEHICLE DRIVEN BY . PATIENT AND CONFIRM THEY HAVE ALL PERSONAL BELONGINGS. PATIENT HAS PHONE, PURSE, CLOTHES, AND GLASSES ON PERSON. VITAL SIGNS COMPLETED.
--- NOTE | 2025-06-08 16:13 | EKG ---
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
== END 2025-06-07 11:35 | disposition home health service (06) | DRG 871 ==
LOC: ED 08:57 → MS 15:36
PROVIDERS: Emergency Medicine; ADMIT Student in an Organized Health Care Education/Training Program; ATTEND Internal Medicine
DX: A41.9 Sepsis, unspecified organism (principal); J18.9 Pneumonia, unspecified organism; J44.0 Chronic obstructive pulmonary disease with (acute) lower respiratory infection; J44.1 Chronic obstructive pulmonary disease with (acute) exacerbation; N17.9 Acute kidney failure, unspecified; I48.91 Unspecified atrial fibrillation; J84.10 Pulmonary fibrosis, unspecified; I50.9 Heart failure, unspecified; M85.80 Other specified disorders of bone density and structure, unspecified site; I95.1 Orthostatic hypotension; Z66 Do not resuscitate; Z99.81 Dependence on supplemental oxygen; Z87.891 Personal history of nicotine dependence; Z88.8 Allergy status to other drugs, medicaments and biological substances; Z88.1 Allergy status to other antibiotic agents; Z88.2 Allergy status to sulfonamides; Z79.899 Other long term (current) drug therapy; Z79.01 Long term (current) use of anticoagulants
CPT/HCPCS: 36415; 71045; 71046; 80053; 82803; 83605; 83735; 83880; 84439; 84443; 84484; 85025; 85610; 86140; 87040; 93005; 93010; 94640; 94667; 94668; 94760; 94799; 96374; 96375; 97116; 97161; 97166; 97530; 97535; 99285-25; J0456; J0696; J1938; J2919; J3475; J7040; J7060; J7121; J7512; J7605

== ENCOUNTER 2025-06-10 13:58 | Emergency (ER) | payer MEDICARE, OTHER ==
[~2025-06-10] VITALS: Ht 165.1 cm; Wt 44.8 kg
[~2025-06-10 13:58] MED LIST changes: +METOPROLOL TAR100 MG PO; +METOPROLOL TART25 MG PO; +TORSEMIDE10 MG PO
--- OUTSIDE RECORDS SUMMARY | 2025-06-10 14:10 | XMS ---
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 Shanon VISIT COUNT (12 MO.) [address] [place] [address] TOTAL 8 NOTE: Visits indicate total known visits. ED/C VISIT TRACKING (12 MO.) 06/10/2025 13:58 [facility] [place] TYPE: Emergency COMPLAINT: - SHORTNESS OF BREATH 06/02/2025 08:57 [facility] [place] TYPE: Emergency COMPLAINT: - SHORTNESS OF BREATH 05/04/2025 11:25 [facility] TYPE: Emergency DIAGNOSES: - Chronic [...] and giddiness - Intracranial hypotension, unspecified - terminal system operator (current) use of anticoagulants - Other penitentiary (current) drug therapy - Personal history of nicotine dependence 12/11/2024 14:03 [facility] [place] TYPE: Emergency COMPLAINT: - RECTAL BLEEDING 11/01/2024 08:31 [facility] [place] TYPE: Emergency COMPLAINT: - DIZZNESS DIAGNOSES: - Allergy status to other antibiotic agents - Allergy status to other drugs, medicaments and biological substances - Chronic obstructive pulmonary disease, unspecified - Dizziness and giddiness - prison (current) use of anticoagulants - Other penitentiary (current) drug therapy - Personal history of [...] - Weakness INPATIENT VISIT TRACKING (12 MO.) 06/02/2025 15:36 [facility] [place] TYPE: Medical Surgical COMPLAINT: - SEPSIS/PNA DIAGNOSES: - Acute kidney failure, unspecified - Allergy status to other antibiotic agents - Allergy status to other drugs, medicaments and biological substances - Allergy status to sulfonamides - Chronic obstructive pulmonary disease with (acute) exacerbation - Chronic obstructive pulmonary disease with (acute) lower respiratory infection - Dependence on supplemental oxygen - Do not resuscitate - Heart failure, unspecified - prison (current) use of anticoagulants - Orthostatic hypotension - Other terminologist (current) drug therapy - Other specified disorders of bone density and structure, unspecified site - Personal history of nicotine dependence - Pneumonia, unspecified organism - Pulmonary fibrosis, unspecified - Sepsis, unspecified organism - Unspecified atrial fibrillation 04/23/2025 18:[address] [facility] [place] TYPE: Medical Surgical COMPLAINT: - SOB [...] replacement therapy - Hormone replacement therapy - terminal system operator (current) use of anticoagulants - terminal system operator (current) use of anticoagulants - terminal system operator (current) use of inhaled steroids - prison (current) use of inhaled steroids - Nonrheumatic aortic (valve) stenosis - Nonrheumatic aortic (valve) stenosis - Other terminologist (current) drug therapy - Other terminologist (current) drug therapy - Other specified postprocedural [...] of anus and rectum - Hypokalemia - prison (current) use of anticoagulants - Other terminologist (current) drug therapy - Other specified bacterial agents as the cause of diseases classified elsewhere - Personal history of nicotine dependence - Unspecified atrial fibrillation [email or web address]
[2025-06-10] MEDS ORDERED: ALBUTEROL/IPRATROPIUM 3 ML NEB INH ONE (14:45)
[2025-06-10 14:47] LABS: BASOPHILS 0.1 % (0.1-1.2); EOSINOPHILS 0.1 % (0.7-5.8); LYMPHOCYTES 6.9 % (19.3-51.7); MCH 29.0 PG (25.6-32.2); MCHC 32.4 g/dL (32.2-35.5); MCV 89.7 fL (79.4-94.8); MONOCYTES 4.9 % (4.7-12.5); NEUTROPHILS 87.5 % (34.0-71.1); RBC 4.17 M/uL (3.93-5.22)
[2025-06-10 14:56] LABS: INR 2.24 (0.80-1.30); PROTIME 24.1 Sec (11.2-14.2)
[2025-06-10 15:11] LABS: ALT (SGPT) 17.0 U/L (14-59); AST (SGOT) 12.0 U/L (15-37); GLOMERULAR FILTRATION RATE,EST 42.0 mL/min (>60); PROTEIN, TOTAL 7.0 g/dL (6.4-8.2); UREA NITROGEN 42.0 mg/dL (7-18)
[2025-06-10 17:45] VITALS: BP 97/55
== END 2025-06-10 17:37 | disposition home or self-care (01) ==
LOC: ED 13:58
PROVIDERS: Emergency Medicine
DX: J44.9 Chronic obstructive pulmonary disease, unspecified (principal); R53.1 Weakness; I48.91 Unspecified atrial fibrillation; Z87.891 Personal history of nicotine dependence; Z88.2 Allergy status to sulfonamides; Z79.899 Other long term (current) drug therapy; Z88.8 Allergy status to other drugs, medicaments and biological substances; Z79.01 Long term (current) use of anticoagulants
CPT/HCPCS: 36415; 71045; 80053; 83880; 84484; 85025; 85610; 94640; 99285-25

== ENCOUNTER 2025-06-20 17:04 | Emergency (ER) | payer MEDICARE, OTHER ==
[~2025-06-20] VITALS: Ht 165.1 cm; Wt 46.1 kg
--- NOTE | ~2025-06-20 | EKG ---
[facility] [address] [facility], [place] [address] Draft EKG completed, results pending confirmation PATIENT NAME: MICHELLEOSCAR Electrocardiogram DATE OF : 38 PHYSICIAN: PRELIMINARY REPORT #: [id number] REPORT IS CONFIDENTIAL AND NOT TO BE RELEASED WITHOUT AUTHORIZATION
--- OUTSIDE RECORDS SUMMARY | 2025-06-20 17:23 | XMS ---
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 Shanon VISIT COUNT (12 MO.) [address] [place] [address] TOTAL 9 NOTE: Visits indicate total known visits. 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 - Personal history of nicotine dependence - Shortness of breath - Unspecified atrial fibrillation - Weakness 06/02/2025 08:57 [facility] [place] TYPE: Emergency COMPLAINT: - SHORTNESS OF BREATH 05/04/2025 11:25 [facility] TYPE: Emergency DIAGNOSES: - Chronic obstructive pulmonary disease, unspecified - Heart failure, unspecified - Nonrheumatic aortic (valve) stenosis - Dizziness - short of breath - Shortness of Breath 04/23/2025 08:13 [facility] TYPE: Emergency COMPLAINT: - SHORTNESS OF BREATH 02/10/2025 09:30 [facility] [place] TYPE: Emergency COMPLAINT: - VISUAL CHANGES DIAGNOSES: - Allergy status to other antibiotic agents - Allergy status to other drugs, medicaments and biological substances - Chronic obstructive pulmonary disease, unspecified - Dizziness and giddiness - Intracranial hypotension, unspecified - 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 - [facility] drug therapy - Personal history of nicotine dependence 12/11/2024 14:03 [facility] [place] [facility] [place] TYPE: Emergency COMPLAINT: - RECTAL BLEEDING 11/01/2024 08:31 [facility] [place] [facility] [place] TYPE: Emergency COMPLAINT: - DIZZNESS DIAGNOSES: - Allergy status to other antibiotic agents - Allergy status to other drugs, medicaments and biological substances - Chronic obstructive pulmonary disease, unspecified - Dizziness and giddiness - [facility] (current) use of anticoagulants - 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 - Personal history of nicotine dependence - Pneumonia, unspecified organism - Unspecified atrial fibrillation - Urinary tract infection, site not specified 07/02/2024 07:35 [facility] [place] TYPE: Emergency COMPLAINT: - WEAKNESS DIAGNOSES: [...] DIAGNOSES: - Acute kidney failure, unspecified - Acute [...] disease with (acute) lower respiratory infection - Chronic obstructive pulmonary disease with (acute) lower respiratory infection - Dependence on supplemental oxygen - Dependence on supplemental oxygen - Do not resuscitate - Do not resuscitate - Heart failure, unspecified - Heart failure, unspecified - [facility] (current) use of anticoagulants - [facility] (current) use of anticoagulants - Orthostatic hypotension - Orthostatic hypotension - 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 - [facility] ([facility] drug therapy - Other specified disorders of bone density and structure, unspecified site - Other specified disorders of bone density and structure, unspecified site - Personal history of nicotine dependence - Personal history of nicotine dependence - Pneumonia, unspecified organism - Pneumonia, unspecified organism - Pulmonary fibrosis, unspecified - Pulmonary fibrosis, unspecified - Sepsis, unspecified organism - Unspecified atrial fibrillation - Unspecified atrial fibrillation 04/23/2025 18:34 [facility] [place] TYPE: Medical [...] replacement therapy - Hormone replacement therapy - 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 - [facility] (current) use of anticoagulants - [facility] (current) use of inhaled steroids - [facility] (current) use of inhaled steroids - Nonrheumatic aortic (valve) stenosis - Nonrheumatic aortic (valve) stenosis - [facility] ([facility]) drug therapy - 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 - Other specified postprocedural [...] of anus and rectum - Hypokalemia - [facility] (current) use of anticoagulants - 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 - Other specified bacterial agents as the cause of diseases classified elsewhere - Personal history of nicotine dependence - Unspecified atrial fibrillation [email or web address]
[2025-06-20] MEDS ORDERED: ALBUTEROL/IPRATROPIUM 3 ML NEB INH PRN (17:30)
[2025-06-20 17:34] LABS: BASOPHILS 0.1 % (0.1-1.2); EOSINOPHILS 0.1 % (0.7-5.8); LYMPHOCYTES 4.9 % (19.3-51.7); MCH 28.9 PG (25.6-32.2); MCHC 31.7 g/dL (32.2-35.5); MCV 91.1 fL (79.4-94.8); MONOCYTES 5.4 % (4.7-12.5); NEUTROPHILS 89.1 % (34.0-71.1); RBC 4.36 M/uL (3.93-5.22)
[2025-06-20 18:03] LABS: ALT (SGPT) 12.0 U/L (14-59); AST (SGOT) 13.0 U/L (15-37); GLOMERULAR FILTRATION RATE,EST 47.0 mL/min (>60); PROTEIN, TOTAL 6.4 g/dL (6.4-8.2); UREA NITROGEN 29.0 mg/dL (7-18)
[2025-06-20] MEDS ORDERED: ALBUTEROL SULFATE 0.083% 3 ML VIAL INH ONE (18:45)
[2025-06-20 19:11] VITALS: BP 139/82
[2025-06-20] MEDS ORDERED: PREDNISONE20 MG PO (19:26)
== END 2025-06-20 19:33 | disposition home or self-care (01) ==
LOC: ED 17:04
PROVIDERS: Emergency Medicine
DX: J44.1 Chronic obstructive pulmonary disease with (acute) exacerbation (principal); R53.1 Weakness; Z79.1 Long term (current) use of non-steroidal anti-inflammatories (NSAID); Z79.899 Other long term (current) drug therapy; Z88.1 Allergy status to other antibiotic agents; Z88.8 Allergy status to other drugs, medicaments and biological substances; Z87.891 Personal history of nicotine dependence
CPT/HCPCS: 36415; 71045; 80053; 83735; 83880; 84484; 85025; 93005; 93010; 94640; 96374; 99285-25; J2919

== ENCOUNTER 2025-06-24 13:51 | Emergency (ER) | payer MEDICARE, OTHER ==
[~2025-06-24] VITALS: Ht 165.1 cm; Wt 46.1 kg
[~2025-06-24 13:51] MED LIST changes: +PREDNISONE20 MG PO
--- OUTSIDE RECORDS SUMMARY | 2025-06-24 13:58 | XMS ---
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 Josh has no Care Guidelines for this patient. Shanon VISIT COUNT (12 MO.) [address] TOTAL 10 NOTE: Visits indicate total known visits. 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 - Personal history of nicotine dependence - Shortness of breath - Weakness 06/10/2025 13:58 [facility] [place] TYPE: Emergency COMPLAINT: - SHORTNESS OF BREATH DIAGNOSES: - Allergy status to other drugs, medicaments and biological substances - Allergy status to sulfonamides - Chronic obstructive pulmonary disease, unspecified - [facility] (current) use of anticoagulants - Other long-term (current) drug therapy - Personal history of nicotine dependence - Shortness of breath - Unspecified atrial fibrillation - Weakness 06/02/2025 08:57 [facility] [place] TYPE: Emergency COMPLAINT: - SHORTNESS OF BREATH 05/04/2025 11:25 [facility] TYPE: Emergency DIAGNOSES: - Chronic obstructive pulmonary disease, unspecified - Heart failure, unspecified - Nonrheumatic aortic (valve) stenosis - Dizziness - short of breath - Shortness of Breath 04/23/2025 08:13 [facility] TYPE: Emergency COMPLAINT: - SHORTNESS OF BREATH 02/10/2025 09:30 [facility] TYPE: Emergency COMPLAINT: - VISUAL CHANGES DIAGNOSES: - Allergy status to other antibiotic agents - Allergy status to other drugs, medicaments and biological substances - Chronic obstructive pulmonary disease, unspecified - Dizziness and giddiness - Intracranial hypotension, unspecified - 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 - Other long-term (current) drug therapy - Personal history of nicotine dependence 12/11/2024 14:03 [facility] [place]: Emergency COMPLAINT: - RECTAL BLEEDING 11/01/2024 08:31 [facility] [place]: Emergency COMPLAINT: - DIZZNESS DIAGNOSES: - Allergy status to other antibiotic agents - Allergy status to other drugs, medicaments and biological substances - Chronic obstructive pulmonary disease, unspecified - Dizziness and giddiness - 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 - 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 - Personal history of nicotine dependence - Pneumonia, unspecified organism - Unspecified atrial fibrillation - Urinary tract infection, site not specified 07/02/2024 07:35 [facility] [place] [facility] [place] TYPE: Emergency COMPLAINT: - WEAKNESS [...] atrial fibrillation - Weakness INPATIENT VISIT TRACKING ( MO.) 06/02/2025 15:36 [facility] [place] TYPE: [...] failure, unspecified - Heart failure, unspecified - 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 - 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 - Orthostatic hypotension - Orthostatic hypotension - Other long-term (current) drug therapy - Other long-term (current) drug therapy - Other specified disorders [...] replacement therapy - Hormone replacement therapy - 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 - 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 - [facility] (current) use of inhaled steroids - 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 - Nonrheumatic aortic (valve) stenosis - Nonrheumatic aortic (valve) stenosis - Other long-term (current) drug therapy - 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
[2025-06-24 14:26] LABS: BASOPHILS 0.1 % (0.1-1.2); EOSINOPHILS 0.1 % (0.7-5.8); LYMPHOCYTES 2.0 % (19.3-51.7); MCH 29.1 PG (25.6-32.2); MCHC 32.3 g/dL (32.2-35.5); MCV 90.3 fL (79.4-94.8); MONOCYTES 1.8 % (4.7-12.5); NEUTROPHILS 95.6 % (34.0-71.1); RBC 4.12 M/uL (3.93-5.22)
[2025-06-24 14:47] LABS: ALT (SGPT) 22.0 U/L (14-59); AST (SGOT) 16.0 U/L (15-37); GLOMERULAR FILTRATION RATE,EST 46.0 mL/min (>60); PROTEIN, TOTAL 6.7 g/dL (6.4-8.2); UREA NITROGEN 30.0 mg/dL (7-18)
[2025-06-24 14:58] LABS: PROTIME 110.6 Sec (11.2-14.2)
[2025-06-24 15:04] LABS: INR 15.81 (0.80-1.30)
[2025-06-24] MEDS ORDERED: PHYTONADIONE 2.5 MG/2.5 ML SYR PO ONE (15:15)
[2025-06-24 15:25] VITALS: BP 98/66
== END 2025-06-24 15:20 | disposition home or self-care (01) ==
LOC: ED 13:51
PROVIDERS: Emergency Medicine
DX: R79.1 Abnormal coagulation profile (principal); R04.0 Epistaxis; I48.91 Unspecified atrial fibrillation; Z87.891 Personal history of nicotine dependence; J44.9 Chronic obstructive pulmonary disease, unspecified; Z79.899 Other long term (current) drug therapy; Z88.2 Allergy status to sulfonamides; Z88.8 Allergy status to other drugs, medicaments and biological substances
CPT/HCPCS: 36415; 80053; 85025; 85610; 99283